=== PATIENT | female | born 1955 | race Caucasian/White ===

== ENCOUNTER 2016-05-31 09:53 | Inpatient (IN) | payer OTHER ==
[2016-05-31] VITALS (13 sets, daily range): BP systolic 144–206; BP diastolic 77–101; PULSE 94–133; RESP 20–26; TEMP 98.1–98.6; O2SAT 95–100
[~2016-05-31] VITALS: Ht 165.1 cm; Wt 71.1 kg
[~2016-05-31 09:53] MED LIST: ALBU8I INH; BACT800T5 PO; METO100 PO; NYSTT; PRED20 PO
[2016-05-31] MEDS ORDERED: RESP: ALBUTEROL 2.5 MG/IPRATROPIUM 0.5 MG NEB (PRN) ONE (10:19)
[2016-05-31] MEDS: RESP: ALBUTEROL 2.5 MG/IPRATROPIUM 0.5 MG NEB (SCH) INH ×3 (10:23→20:33)
[2016-05-31] MEDS ORDERED: SODIUM CHLORIDE 0.9% FLUSH 5 ML FLUSH IVF PRN (10:30)
[2016-05-31] MEDS ORDERED: SODIUM CHLOR 0.9% 1000 ML INJ 1,000 ML IV ONE ×3 (10:30→18:00)
[2016-05-31] MEDS ORDERED: methylPREDNISolone SOD SUCC 125 MG/2 ML VIAL IVP ONE (10:30)
[2016-05-31 10:33] LABS: BLOOD GAS BASE EXCESS 0.6 mmol/L (-2-2); BLOOD GAS CARBOXYHEMOGLOBIN 1.7 % (0-4); BLOOD GAS HCO3 24 mmol/L (22-26); BLOOD GAS METHEMOGLOBIN 2.1 % (0-2); BLOOD GAS O2 HGB SATURATION 96 % (90-100); BLOOD GAS OXYGEN CONTENT 12.5 Vol % (12.0-20.0); BLOOD GAS PCO2 31 mmHg (38-42); BLOOD GAS PO2 268 mmHG (61-120); BLOOD GAS TOTAL HGB 8.8 G/DL (12.0-16.0); CRITICAL VALUE NO; DRAW SITE LT RADIAL; LITER FLOW 3 L/M; NUMBER OF ARTERIAL PUNCTURES 1; OXYGEN DEVICE NASAL CANNULA; STAT YES; TEMP CORR TO 98.6; ULNAR PULSE PRESENT
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
[2016-05-31] MEDS ORDERED: CEFEPIME INJ 2,000 MG in SODIUM CHLORIDE 0.9% INJ 100 ML IV ONE (12:00)
[2016-05-31] MEDS ORDERED: VANCOMYCIN INJ 1,000 MG in SODIUM CHLOR 0.9% 250 ML INJ 250 ML IV ONE (12:00)
--- NOTE | 2016-05-31 12:14 | RADRPT ---
EXAM DATE/TIME: 05/31/2016 11:51 [facility] COMPARISON: No previous studies available for comparison. INDICATIONS : Altered mental status. RADIATION DOSE: 41.24 CTDIvol (mGy) MEDICAL HISTORY : Hypertension. SURGICAL HISTORY : Non-responsive. ENCOUNTER: Initial ACUITY: 1 day PAIN SCALE: Non-responsive LOCATION: Bilateral cranial TECHNIQUE: Multiple contiguous axial images were obtained of the head. Using automated exposure control and adj ustment of the mA and/or kV according to patient size, radiation dose was kept as low as reasonably a chievable to obtain optimal diagnostic quality images. 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 Modera te periventricular white matter changes are noted. There is no acute parenchymal hemorrhage. There are no extra-axial fluid collections appreciated. Posterior fossa appears normal. CONCLUSION: 1. 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 2. Negative for an acute process. Vinay Avalos MD FACR on May 31, 2016 at 12:08 Board Certified Radiologist. This report was verified electronically.
[2016-05-31 12:52] LABS: AUTOMATED NEUTROPHIL # 21.8 TH/MM3 (1.8-7.7); BASOPHIL % 0.1 % (0.0-2.0); EOSINOPHIL % 0.1 % (0.0-4.0); HEMATOCRIT 33.6 % (35.0-46.0); LYMPH % 3.6 % (9.0-44.0); LYMPHOCYTE # 0.8 TH/MM3 (1.0-4.8); MEAN CELL VOLUME 78.6 FL (80.0-100.0); MEAN CORPUSCULAR HEMOGLOBIN 23.6 PG (27.0-34.0); MONO % 3.3 % (0.0-8.0); NEUT % 92.9 % (16.0-70.0); PLATELET COUNT 437 TH/MM3 (150-450); RED BLOOD COUNT 4.27 MIL/MM3 (4.00-5.30); RED CELL DISTRIBUTION WIDTH 16.6 % (11.6-17.2); WHITE BLOOD COUNT 23.4 TH/MM3 (4.0-11.0)
[2016-05-31 12:53] LABS: HEMO FLAGS AUTO DIFF
[2016-05-31 12:59] LABS: APTT (PATIENT) 43.1 SEC (22.6-28.8); INTERNATIONAL NORMALIZED RATIO 1.9 RATIO
--- NOTE | 2016-05-31 13:08 | RADRPT ---
EXAM DATE/TIME: 05/31/2016 12:55 [facility] COMPARISON: CHEST SINGLE AP, March 06, 2016, 13:56. INDICATIONS : Short of breath MEDICAL HISTORY : Hypertension. Chronic obstructive pulmonary disease. SURGICAL HISTORY : None. ENCOUNTER: Initial ACUITY: 1 day PAIN SCORE: Non-responsive. LOCATION: Bilateral chest FINDINGS: [id number] is in good position. Lungs are clear. The heart and pulmonary vascularity are normal. The portion of the bony skeleton visualized is unremarkable. CONCLUSION: No acute disease. Vinay Avalos MD FACR on May 31, 2016 at 13:06 Board Certified Radiologist. This report was verified electronically.
[2016-05-31 13:12] LABS: ANION GAP 12 MEQ/L (5-15); AST (GOT) 74 U/L (15-37); BICARBONATE 20.1 MEQ/L (21.0-32.0); BLOOD UREA NITROGEN 24 MG/DL (7-18); CHLORIDE 101 MEQ/L (98-107); GLOMERULAR FILTRATION RATE 45 ML/MIN (>89); POTASSIUM 4.6 MEQ/L (3.5-5.1); SODIUM (NA) 133 MEQ/L (136-145)
[2016-05-31 13:17] LABS: ALKALINE PHOSPHATASE 82 U/L (45-117); ALT (GPT) 28 U/L (10-53); CREATINE KINASE 772 U/L (26-192); TOTAL BILIRUBIN ADULT 0.5 MG/DL (0.2-1.0)
[2016-05-31 13:24] LABS: BANDS 14 % (0-6); MYELOCYTES 1 % (0-0); NEUTROPHIL # MANUAL DIFF 21.5 TH/MM3 (1.8-7.7); PLATELET ESTIMATE SMEAR NORMAL (NORMAL); PLATELET MORPHOLOGY NORMAL (NORMAL); POLYS (SEG NEUTROPHILS) 77 % (16-70); SCAN/DIFF FINAL DIFF MANUAL; WBC DIFF SAMPLE 100
[2016-05-31] MEDS ORDERED: ADENOSINE IV SOLN 3 MG/ML 2 ML VIAL ONE ×4 (14:44→15:40)
[2016-05-31 14:45] LABS: LACTIC ACID GHOST NOT REPORTABLE
[2016-05-31] MEDS ORDERED: RESP: ALBUTEROL 2.5 MG/3 ML NEB (SCH) NEB ONE (15:00)
[2016-05-31] MEDS ORDERED: SODIUM CHLOR 0.9% 1000 ML INJ 1,000 ML IV SCH ×2 (15:15→16:30)
[2016-05-31] MEDS ORDERED: LACTATED RINGER'S 1000 ML INJ 1,000 ML IV SCH (15:20)
[2016-05-31 15:28] LABS: BLOOD, URINE NEG (NEG); COMMENT (UR) CULT NOT INDICATED; CULTURE IF INDICATED CULT NOT INDICATED; GLUCOSE,URINE NEG (NEG); KETONE, URINE NEG (NEG); MUCUS URINE FEW /lpf (OCC); NITRITE,URINE NEG (NEG); PH, URINE 5.5 (5.0-8.5); SQUAMOUS EPITHELIAL CELL URINE <1 /hpf (0-5); URINE COLOR YELLOW (YELLW/STRAW)
[2016-05-31] MEDS ORDERED: POTASSIUM CHLOR 40 MEQ PREMIX 100 ML IV PRN ×2 (15:30)
[2016-05-31] MEDS ORDERED: POTASSIUM PHOSPHATE MONOBASIC 500 MG TAB PO PRN (15:30)
[2016-05-31] MEDS ORDERED: MAGNESIUM OXIDE 400 MG TAB PO PRN (15:30)
[2016-05-31] MEDS ORDERED: CHLORHEXIDINE GLUCONATE 2 % 1 PACK (2 CLOTHS) TOP PRN (15:30)
[2016-05-31] MEDS ORDERED: DEXTROSE 50% IN WATER 50 ML VIAL(D50) IV PUSH PRN ×2 (15:30→19:45)
[2016-05-31] MEDS ORDERED: MAGNESIUM SULFATE INJ 2 GM in SODIUM CHLORIDE 0.9% INJ 96 ML IV PRN (15:30)
[2016-05-31] MEDS ORDERED: MAGNESIUM SULFATE INJ 4 GM in SODIUM CHLORIDE 0.9% INJ 92 ML IV PRN (15:30)
[2016-05-31] MEDS ORDERED: POTASSIUM CL 40 MEQ/30 ML LIQ UDC PO/TUBE PRN ×2 (15:30)
[2016-05-31] MEDS ORDERED: SODIUM PHOSPHATE INJ 30 MMOL in SODIUM CHLOR 0.9% 250 ML INJ 240 ML IV PRN (15:30)
[2016-05-31] MEDS ORDERED: POTASSIUM CHLOR 20 MEQ PREMIX 100 ML IV PRN (15:30)
[2016-05-31] MEDS ORDERED: MISCELLANEOUS NURSING INFORMATION XX SCH (15:30)
[2016-05-31] MEDS ORDERED: POTASSIUM PHOSPHATE INJ 30 MMOL in SODIUM CHLOR 0.9% 250 ML INJ 250 ML IV PRN (15:30)
[2016-05-31] MEDS ORDERED: POTASSIUM PHOSPHATE MONOBASIC 500 MG TAB PO/TUBE PRN (15:30)
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
[2016-05-31] MEDS ORDERED: INSULIN NovoLIN REGULAR SUPPLEMENTAL SCALE SQ SCH (18:00)
[2016-05-31] MEDS ORDERED: Vancomycin Consult Pharmacy 1 EA OTHER SCH (19:30)
[2016-05-31] MEDS ORDERED: GLUCAGON 1 MG/ML VIAL OTHER PRN (19:45)
[2016-05-31] MEDS: SODIUM CHLOR 0.9% 1000 ML INJ 1,000 ML IV SCH (20:00)
[2016-05-31] MEDS: INSULIN ASPART SUPPLEMENTAL SCALE SQ SCH (20:00)
[2016-05-31] MEDS: SODIUM CHLORIDE 0.9% FLUSH 5 ML FLUSH IV FLUSH SCH (20:14)
[2016-05-31] MEDS: DOCUSATE SODIUM 50 MG/SENNA 8.6 MG TAB PO SCH (20:14)
[2016-05-31] MEDS ORDERED: TETANUS/DIPHTHERIA TOXOID ADULT 0.5 ML VIAL IM ONE (20:30)
[2016-05-31] MEDS ORDERED: VANCOMYCIN 1,000 MG/NS 250 ML IV ONE ×2 (21:00)
[2016-05-31] MEDS ORDERED: LACTULOSE SYRUP 20 GM/30 ML CUP PO SCH (21:00)
[2016-05-31] MEDS ORDERED: POLYETHYLENE GLYCOL 17 GM PKG PO SCH (21:00)
[2016-05-31] MEDS: HEPARIN SODIUM - SQ 10,000 UNITS/ML VIAL SQ SCH (21:20)
[2016-05-31] MEDS: FLUCONAZOLE 100 MG PREMIX BAG 50 ML IV SCH (21:25)
[2016-05-31 21:36] LABS: MAGNESIUM 2.6 MG/DL (1.5-2.5)
[2016-05-31 22:33] LABS: LACTIC ACID GHOST NOT REPORTABLE
[2016-06-01] VITALS (18 sets, daily range): BP systolic 131–166; BP diastolic 74–91; PULSE 95–119; RESP 16–20; TEMP 97.4–98.4; O2SAT 99–100
[2016-06-01] MEDS: SODIUM CHLOR 0.9% 1000 ML INJ 1,000 ML IV SCH ×2 (00:40→08:03)
[2016-06-01] MEDS: INSULIN ASPART SUPPLEMENTAL SCALE SQ SCH ×4 (02:00→20:00)
[2016-06-01] MEDS: RESP: ALBUTEROL 2.5 MG/IPRATROPIUM 0.5 MG NEB (SCH) INH ×4 (03:41→21:43)
--- NOTE | 2016-06-01 03:50 | RADRPT ---
EXAM DATE/TIME: 06/01/2016 02:44 [facility] COMPARISON: US LEG BILATERAL VENOUS DOPPLER, December 24, 2015, 20:58. INDICATIONS : Swelling in bilateral lower extremites. MEDICAL HISTORY : Stroke. Hypercholesterolemia. Hypertension. COPD. Emphysema. Asthma. GERD. Rheumatoid arthritis. Lupu s. Hepatitis C. SURGICAL HISTORY : section. Cerebral aneurysm repair x 2. Oral surgery. ENCOUNTER: Initial ACUITY: 1 day PAIN SCORE: Non-responsive LOCATION: Bilateral legs. TECHNIQUE: Venous ultrasound of the left and right leg was performed from the inguinal ligament to the proximal calf. Real-time, color Doppler and spectral tracing, compression and augmentation techniques were us ed. FINDINGS: RIGHT LEG: There is normal compressibility of the deep venous system from the inguinal region to the proximal ca lf. No echogenic clot is seen in the lumen of the common femoral, femoral, popliteal, and posterior tibial veins. There is a normal response of the venous system to proximal and distal augmentation an d respiration. LEFT LEG: There is normal compressibility of the deep venous system from the inguinal region to the proximal ca lf. No echogenic clot is seen in the lumen of the common femoral, femoral, popliteal, and posterior tibial veins. There is a normal response of the venous system to proximal and distal augmentation an d respiration. CONCLUSION: No evidence of lower extremity DVT on the right or left. Rony Espinoza MD on June 01, 2016 at 3:47 Board Certified Radiologist. This report was verified electronically.
[2016-06-01] MEDS: CHLORHEXIDINE GLUCONATE 2 % 1 PACK (2 CLOTHS) TOP SCH (04:00)
[2016-06-01] MEDS: PIPERACIL-TAZO 3.375 GM PREMIX 50 ML IV SCH ×4 (05:18→20:32)
[2016-06-01] MEDS: HEPARIN SODIUM - SQ 10,000 UNITS/ML VIAL SQ SCH ×2 (05:19→18:34)
[2016-06-01 06:01] LABS: HEMATOCRIT 23.1 % (35.0-46.0); MEAN CELL VOLUME 77.4 FL (80.0-100.0); MEAN CORPUSCULAR HEMOGLOBIN 23.9 PG (27.0-34.0); MEAN CORPUSCULAR HGB CONC 30.9 % (32.0-36.0); PLATELET COUNT 285 TH/MM3 (150-450); RED BLOOD COUNT 2.99 MIL/MM3 (4.00-5.30); RED CELL DISTRIBUTION WIDTH 16.1 % (11.6-17.2); WHITE BLOOD COUNT 14.5 TH/MM3 (4.0-11.0)
--- NOTE | 2016-06-01 06:12 | RADRPT ---
EXAM DATE/TIME: 06/01/2016 05:33 [facility] COMPARISON: CHEST SINGLE AP, May 31, 2016, 12:55. INDICATIONS : Atelectasis MEDICAL HISTORY : Chronic obstructive pulmonary disease. Hypertension SURGICAL HISTORY : None. ENCOUNTER: Subsequent ACUITY: 2 days PAIN SCORE: 0/10 LOCATION: Bilateral chest FINDINGS: No Single AP view of the chest. Left-sided [id number] remains in place. Minimal patchy opacity at the lung bases. No evidence of pleural effusion or pneumothorax. CONCLUSION: Minimal patchy bilateral lower lung zone atelectasis. Rony Espinoza MD on June 01, 2016 at 6:09 Board Certified Radiologist. This report was verified electronically.
[2016-06-01 06:17] LABS: REVIEW FLAG FINAL
[2016-06-01 07:14] LABS: BICARBONATE 20.1 MEQ/L (21.0-32.0); POTASSIUM 4.2 MEQ/L (3.5-5.1)
[2016-06-01 07:31] LABS: CKMB 2.5 NG/ML (0.5-3.6)
[2016-06-01 07:50] LABS: CALCIUM-PROTEIN CORRECTED 7.6 MG/DL (8.5-10.1)
[2016-06-01 07:52] LABS: LACTIC ACID GHOST NOT REPORTABLE
[2016-06-01] MEDS: DOCUSATE SODIUM 50 MG/SENNA 8.6 MG TAB PO SCH ×2 (08:04→20:32)
[2016-06-01] MEDS: SODIUM CHLORIDE 0.9% FLUSH 5 ML FLUSH IV FLUSH SCH ×2 (08:21→20:32)
[2016-06-01] MEDS: PANTOPRAZOLE SODIUM 40 MG VIAL IV SCH (08:21)
[2016-06-01] MEDS ORDERED: BISACODYL 10 MG SUPP RECTAL SCH (09:00)
[2016-06-01] MEDS ORDERED: SODIUM CHLOR 0.9% 250 ML INJ 250 ML IV ONE (11:00)
[2016-06-01] MEDS: LACTATED RINGER'S 1000 ML INJ 1,000 ML IV SCH ×2 (11:10→18:35)
[2016-06-01 12:59] LABS: BLOOD GAS BASE EXCESS -4.8 mmol/L (-2-2); BLOOD GAS CARBOXYHEMOGLOBIN 1.3 % (0-4); BLOOD GAS HCO3 20 mmol/L (22-26); BLOOD GAS METHEMOGLOBIN 0.9 % (0-2); BLOOD GAS O2 HGB SATURATION 97 % (90-100); BLOOD GAS OXYGEN CONTENT 9.1 Vol % (12.0-20.0); BLOOD GAS PCO2 36 mmHg (38-42); BLOOD GAS PO2 127 mmHg (61-120); BLOOD GAS TOTAL HGB 6.5 G/DL (12.0-16.0); CRITICAL VALUE YES; DRAW SITE RT RADIAL; LITER FLOW 3 L/M; NUMBER OF ARTERIAL PUNCTURES 1; OXYGEN DEVICE NASAL CANNULA; STAT YES; TEMP CORR TO 98.6
--- NOTE | 2016-06-01 13:44 | EKG ---
Date Performed: 05/31/2016 Time Performed: 10:30:56 PTAGE: 60 years EKG: SINUS TACHYCARDIA NONSPECIFIC ST & T-WAVE ABNORMALITY ST-T wave changes are new since prior tracing, otherwise largely unchanged ABNORMAL RHYTHM ECG PREVIOUS TRACING : 03/06/2016 14.14 DOCTOR: Jourdan Denson Interpretating Date/Time 06/01/2016 13:43:18
--- NOTE | 2016-06-01 13:46 | EKG ---
Date Performed: 05/31/2016 Time Performed: 15:24:25 PTAGE: 60 years EKG: SUPRAVENTRICULAR TACHYCARDIA MODERATE T-WAVE ABNORMALITY, CONSIDER LATERAL ISCHEMIA Baselin e artifact precludes accurate assessment, rate has increased, however appears largely unchanged ABNOR MAL ECG PREVIOUS TRACING : 05/31/2016 10.30 DOCTOR: Jourdan Denson Interpretating Date/Time 06/01/2016 13:44:08
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
[2016-06-01] MEDS: VANCOMYCIN INJ 1,250 MG in SODIUM CHLOR 0.9% 250 ML INJ 250 ML IV SCH (18:34)
[2016-06-01] MEDS: SODIUM CHLORIDE 0.9% FLUSH 5 ML FLUSH IV FLUSH PRN (20:32)
[2016-06-01] MEDS: FLUCONAZOLE 100 MG PREMIX BAG 50 ML IV SCH (20:36)
[2016-06-02] VITALS (14 sets, daily range): BP systolic 143–163; BP diastolic 89–104; PULSE 109–128; RESP 18–27; TEMP 97.8–98.6; O2SAT 93–99
[2016-06-02] MEDS: LACTATED RINGER'S 1000 ML INJ 1,000 ML IV SCH ×2 (00:20→05:42)
[2016-06-02] MEDS: PIPERACIL-TAZO 3.375 GM PREMIX 50 ML IV SCH ×4 (01:51→22:05)
[2016-06-02] MEDS: INSULIN ASPART SUPPLEMENTAL SCALE SQ SCH ×4 (01:51→20:00)
[2016-06-02] MEDS: RESP: ALBUTEROL 2.5 MG/IPRATROPIUM 0.5 MG NEB (SCH) INH ×4 (03:05→20:55)
[2016-06-02] MEDS: CHLORHEXIDINE GLUCONATE 2 % 1 PACK (2 CLOTHS) TOP SCH (04:00)
[2016-06-02] MEDS: HEPARIN SODIUM - SQ 10,000 UNITS/ML VIAL SQ SCH ×2 (05:42→17:29)
[2016-06-02 07:47] LABS: APTT (PATIENT) 29.5 SEC (22.6-28.8); HEMATOCRIT 26.8 % (35.0-46.0); INTERNATIONAL NORMALIZED RATIO 1.3 RATIO; MEAN CELL VOLUME 78.2 FL (80.0-100.0); MEAN CORPUSCULAR HEMOGLOBIN 25.1 PG (27.0-34.0); MEAN CORPUSCULAR HGB CONC 32.1 % (32.0-36.0); PLATELET COUNT 306 TH/MM3 (150-450); PROTHROMBIN TIME - PATIENT 13.9 SEC (9.8-11.4); RED BLOOD COUNT 3.42 MIL/MM3 (4.00-5.30); RED CELL DISTRIBUTION WIDTH 15.5 % (11.6-17.2); REVIEW FLAG FINAL; WHITE BLOOD COUNT 16.2 TH/MM3 (4.0-11.0)
[2016-06-02 08:00] LABS: BICARBONATE 23.5 MEQ/L (21.0-32.0); POTASSIUM 3.5 MEQ/L (3.5-5.1)
[2016-06-02] MEDS: SODIUM CHLORIDE 0.9% FLUSH 5 ML FLUSH IV FLUSH SCH ×2 (08:43→22:06)
[2016-06-02] MEDS: PANTOPRAZOLE SODIUM 40 MG VIAL IV SCH (08:43)
[2016-06-02] MEDS: VANCOMYCIN INJ 1,250 MG in SODIUM CHLOR 0.9% 250 ML INJ 250 ML IV SCH (08:44)
[2016-06-02] MEDS: DOCUSATE SODIUM 50 MG/SENNA 8.6 MG TAB PO SCH ×2 (08:44→22:06)
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
[2016-06-02] MEDS: DILTIAZEM HCL 60 MG TAB PO SCH ×4 (09:00→22:06)
--- NOTE | 2016-06-02 09:32 | PD.PLAS.PN ---
Subjective Remarks Awake. No complaints. Objective Vital Signs Date Time Temp Pulse Resp B/P Pulse Ox O2 Delivery O2 Flow Rate FiO2 06/02/16 06:00 115 06/02/16 04:00 98.5 116 22 143/90 98 06/02/16 04:00 116 06/02/16 02:00 110 06/02/16 00:00 98.6 109 18 158/89 98 06/02/16 00:00 110 06/01/16 22:00 110 06/01/16 21:43 100 Nasal Cannula 2.00 06/01/16 20:00 98.1 109 18 131/75 99 06/01/16 20:00 109 06/01/16 19:16 100 Nasal Cannula 3.00 06/01/16 18:00 119 06/01/16 16:00 98.4 119 18 137/77 100 06/01/16 16:00 119 06/01/16 14:00 109 06/01/16 12:00 97.4 104 16 133/74 100 06/01/16 12:00 104 06/01/16 10:00 108 06/01/16 09:53 100 Nasal Cannula 3.00 I/O 06/01/16 06/01/16 06/01/16 06/02/16 06/02/16 06/02/16 07:00 15:00 23:00 07:00 15:00 23:00 Intake Total 1211 ml 1023 ml 1775 ml 1012 ml Output Total 280 ml 230 ml 260 ml 330 ml Balance 931 ml 793 ml 1515 ml 682 ml Intake Oral 0 ml 0 ml 0 ml 0 ml IV Total 1211 ml 1023 ml 1369 ml 1012 ml Packed Cells 406 ml Output Urine Total 280 ml 230 ml 260 ml 330 ml # Bowel Movements 0 0 0 0 Laboratory Tests Test 06/01/16 06/01/16 06/01/16 06/02/16 10:20 12:48 13:10 06:11 Lactic Acid Level 1.5 Blood Gas Puncture Site RT RADIAL Blood Gas Patient Temperature 98.6 Blood Gas HCO3 20 Blood Gas Base Excess -4.8 Blood Gas Oxygen Saturation 97 Arterial Blood pH 7.36 Arterial Blood Partial 36 Pressure CO2 Arterial Blood Partial 127 Pressure O2 Arterial Blood Oxygen Content 9.1 Arterial Blood 1.3 Carboxyhemoglobin Arterial Blood Methemoglobin 0.9 Blood Gas Hemoglobin 6.5 Oxygen Delivery Device NASAL CANNULA Blood Gas Liter Flow 3 Blood Type A POSITIVE Antibody Screen NEGATIVE Crossmatch Leukocyte-Reduced Red Blood Cells Blood Bank Comment White Blood Count 16.2 Red Blood Count 3.42 Hemoglobin 8.6 Hematocrit 26.8 Mean Corpuscular Volume 78.2 Mean Corpuscular Hemoglobin 25.1 Mean Corpuscular Hemoglobin 32.1 Concent Red Cell Distribution Width 15.5 Platelet Count 306 Mean Platelet Volume 7.7 Prothrombin Time 13.9 Prothromb Time International 1.3 Ratio Activated Partial 29.5 Thromboplast Time Sodium Level 146 Potassium Level 3.5 Chloride Level 115 Carbon Dioxide Level 23.5 Anion Gap 8 Blood Urea Nitrogen 18 Creatinine 0.82 Estimat Glomerular Filtration 72 Rate Random Glucose 82 Calcium Level 8.1 Date/Time Procedure Status Source Growth 05/31/16 12:05 Aerobic Blood Culture - Preliminary Resulted Blood Peripheral NO GROWTH IN 1 DAY 05/31/16 12:05 Anaerobic Blood Culture - Preliminary Resulted Blood Peripheral NO GROWTH IN 1 DAY Result Diagram: 06/02/1661006/02/16 06 Exam Findings Seen with nurse. Posterior trunk: Un-stageable sacral ulcer. Dry, no drainage, no sign of infection. Moist, no stool. Posterior thigh: Bilateral upper thigh area of superficial abrasion and erythema, no drainage. Rash, macular. Assessment and Plan Assessment and Plan Multiple medical problems, admitted for Sepsis. Posterior trunk early stage ulcer, and surround moisture. Posterior bilateral thighs with erythema, superficial abrasions. Recommend: No surgery or debridement at this time Low flow mattress, which is absolutely essential in these patients. Wound care nurse for recommendations of dressings, need moisture control and bacteriostatic, Maxorb. Rotation every 3 hours Check nutritional parameters If no mental improvement, consider colostomy. Steven Silva MD Jun 02, 2016 09:32
[2016-06-02] MEDS: FLUCONAZOLE 100 MG PREMIX BAG 50 ML IV SCH (22:10)
[2016-06-03] VITALS (16 sets, daily range): BP systolic 126–175; BP diastolic 67–104; PULSE 72–119; RESP 18–27; TEMP 97.7–98.3; O2SAT 94–99
[2016-06-03] MEDS: INSULIN ASPART SUPPLEMENTAL SCALE SQ SCH ×4 (02:00→19:50)
[2016-06-03] MEDS ORDERED: LABETALOL HCL 100 MG/20 ML VIAL IV PRN (02:15)
[2016-06-03] MEDS: VANCOMYCIN INJ 1,250 MG in SODIUM CHLOR 0.9% 250 ML INJ 250 ML IV SCH ×3 (02:31→22:00)
[2016-06-03] MEDS: PIPERACIL-TAZO 3.375 GM PREMIX 50 ML IV SCH ×4 (02:38→19:51)
[2016-06-03] MEDS: CHLORHEXIDINE GLUCONATE 2 % 1 PACK (2 CLOTHS) TOP SCH (03:39)
[2016-06-03] MEDS: RESP: ALBUTEROL 2.5 MG/IPRATROPIUM 0.5 MG NEB (SCH) INH ×4 (03:57→22:03)
[2016-06-03] MEDS: HEPARIN SODIUM - SQ 10,000 UNITS/ML VIAL SQ SCH ×2 (07:46→17:54)
[2016-06-03] MEDS: DILTIAZEM HCL 60 MG TAB PO SCH ×4 (08:00→19:53)
[2016-06-03] MEDS: SODIUM CHLORIDE 0.9% FLUSH 5 ML FLUSH IV FLUSH SCH ×2 (08:00→19:53)
[2016-06-03] MEDS: DOCUSATE SODIUM 50 MG/SENNA 8.6 MG TAB PO SCH ×2 (08:00→19:53)
[2016-06-03] MEDS: PANTOPRAZOLE SODIUM 40 MG VIAL IV SCH (08:00)
--- NOTE | 2016-06-03 10:39 | HHI.PR ---
Subjective Remarks Follow-up for sepsis Patient seen by plastic surgery, nonsurgical for now. Afebrile. Mental status is better today per RN. Patient is more verbal, less slurring of speech. aFebrile. Objective Vitals Vital Signs Date Time Temp Pulse Resp B/P Pulse Ox O2 Delivery O2 Flow Rate FiO2 06/03/16 10:00 80 06/03/16 08:46 94 Nasal Cannula 2.00 06/03/16 08:00 76 06/03/16 08:00 97.7 76 20 130/84 95 06/03/16 06:00 97 06/03/16 04:01 98.3 98 26 175/95 98 06/03/16 04:00 98 06/03/16 02:00 116 06/03/16 00:00 119 06/03/16 00:00 98.0 119 27 169/104 98 06/02/16 22:00 116 06/02/16 20:56 99 Nasal Cannula 2.00 06/02/16 20:00 115 06/02/16 20:00 98.2 115 27 161/97 95 06/02/16 18:00 116 06/02/16 16:00 115 06/02/16 16:00 97.8 115 20 151/91 95 06/02/16 14:00 128 06/02/16 12:00 98.0 121 20 163/104 93 06/02/16 12:00 121 I/O 06/02/16 06/02/16 06/02/16 06/03/16 06/03/16 06/03/16 07:00 15:00 23:00 07:00 15:00 23:00 Intake Total 1012 ml 738 ml 270 ml 170 ml Output Total 330 ml 350 ml 150 ml 150 ml Balance 682 ml 388 ml 120 ml 20 ml Intake Oral 0 ml 50 ml IV Total 1012 ml 738 ml 270 ml 120 ml Output Urine Total 330 ml 350 ml 150 ml 150 ml # Bowel Movements 0 0 0 0 Result Diagram: 06/02/16 0611 06/02/16 0611 Objective Remarks Not in distress PERRL, pink conjunctiva Nose without bleeding Supple neck Normal rate and regular rhythm, no murmurs gallops or rubs appreciated. Poor effort, otherwise clear. Normal bowel sounds, soft, non-tender, nondistended, no guarding. Extremities without clubbing, cyanosis, trace edema improving. Positive for decubitus ulcer, about 2 cm overlying the lower one third of the left lower leg with exudates overlying the ulcer, with diffuse erythema posterior thigh, with surrounding erythema, tender. There is also a necrotic area more than 10 cm posteriorly thigh,? Fluctuance. Awake,? Orientation, most extremities. A/P Problem List: (1) COPD (chronic obstructive pulmonary disease) ICD Code: J44.9 Status: Acute (2) SOB (shortness of breath) ICD Code: R06.02 Status: Acute (3) Severe sepsis ICD Code: A41.9 Status: Acute (4) Hx-TIA (transient ischemic attack) ICD Code: Z86.73 Status: Acute (5) Edentulous ICD Code: K00.0 Status: Acute (6) Essential hypertension ICD Code: I10 Status: Acute (7) Tobacco use disorder ICD Code: Z72.0 Status: Acute (8) Hyperlipidemia ICD Code: E78.5 Status: Acute Assessment and Plan This is a 60-year-old female with cerebral aneurysm and baseline hemiparesis and aphasia presenting with altered mental status Acute toxic metabolic encephalopathy-resolving. Mental status better today. Patient had cerebral aneurysm clipping in 2007, as Baseline hemiparesis and aphasia. CT scan of the head was unremarkable, ammonia is normal. Continue to monitor neuro status and avoid sedatives. Acute respiratory failure-history of tracheostomy, history of COPD. Ongoing tobacco abuse. Was on BiPAP, presently on nasal cannula. Continue oxygen supplementation and DuoNeb's. Sinus tachycardia, hypertension-receive adenosine in at the emergency department , BNP normal, troponin negative. Lactic acidosis resolved with volume resuscitation. 2 D Echo 12/25/15 with EF 55-60%. Normal wall motion. Mild LVH, continue Cardizem 60milligrams 4 times a day Sepsis-on IVF, lactic acidosis resolved. Status post 3 L normal saline History dysphagia-prior history of PEG and removal. Priors history of hepatitis , patient seems to have chronic hepatitis C, follow-up as outpatient. May require diverting colostomy for fecal management due to skin wounds. . Acute renal injury-improving, recheck BMP tomorrow Anemia-status post blood transfusion. Monitor CBC. Sepsis secondary to cellulitis of the left lower extremity, with necrotic decubitus ulcer left buttocks with Shannon intertrigo-? History of HIV, Unable to obtain consent for HIV at this time. CD4 pending. Continue vancomycin, Zosyn and Diflucan. Blood cultures negative to date. General surgery evaluated. No plan for emergent surgery but appears decubitus will require debridement. Dr Echeverria deferring management to plastic surgery. Plastic surgery evaluated, recommends no surgery for now. May require diverting colostomy for wound management due to h/o fecal incontinence, General surgery will follow peripherally regarding this issue. Hypokalemia-replaced PROPH: Heparin subcutaneous for DVT prophylaxis. Protonix 40 mg IV daily for stress ulcer prophylaxis. SOCIAL: Apparent Neglect of at-risk adult. DCF report submitted per ED report. Social work consult to follow. Discussed with Carlitos Haney MD Jun 03, 2016 10:39
[2016-06-03 11:08] LABS: ALT (GPT) 33 U/L (10-53); ANION GAP 8 MEQ/L (5-15); AST (GOT) 49 U/L (15-37); BICARBONATE 24.1 MEQ/L (21.0-32.0); BLOOD UREA NITROGEN 15 MG/DL (7-18); CHLORIDE 113 MEQ/L (98-107); GLOMERULAR FILTRATION RATE 90 ML/MIN (>89); MAGNESIUM 2.3 MG/DL (1.5-2.5); POTASSIUM 3.4 MEQ/L (3.5-5.1); SODIUM (NA) 145 MEQ/L (136-145)
[2016-06-03 11:11] LABS: ALKALINE PHOSPHATASE 64 U/L (45-117); TOTAL BILIRUBIN ADULT 0.8 MG/DL (0.2-1.0)
[2016-06-03] MEDS: POTASSIUM CHLOR 20 MEQ PREMIX 100 ML IV PRN ×3 (11:38→15:04)
[2016-06-03 13:12] LABS: AUTOMATED NEUTROPHIL # 14.4 TH/MM3 (1.8-7.7); BASOPHIL # 0.1 TH/MM3 (0-0.2); BASOPHIL % 0.5 % (0.0-2.0); EOSINOPHIL % 0.1 % (0.0-4.0); HEMATOCRIT 26.6 % (35.0-46.0); LYMPH % 3.3 % (9.0-44.0); LYMPHOCYTE # 0.5 TH/MM3 (1.0-4.8); MEAN CELL VOLUME 77.5 FL (80.0-100.0); MEAN CORPUSCULAR HEMOGLOBIN 24.9 PG (27.0-34.0); MEAN CORPUSCULAR HGB CONC 32.2 % (32.0-36.0); MONO % 2.8 % (0.0-8.0); NEUT % 93.3 % (16.0-70.0); PLATELET COUNT 288 TH/MM3 (150-450); RED BLOOD COUNT 3.43 MIL/MM3 (4.00-5.30); RED CELL DISTRIBUTION WIDTH 16.7 % (11.6-17.2); WHITE BLOOD COUNT 15.4 TH/MM3 (4.0-11.0)
[2016-06-03 13:18] LABS: HEMO FLAGS AUTO DIFF
[2016-06-03 13:56] LABS: BANDS 3 % (0-6); MYELOCYTES 3 % (0-0); NEUTROPHIL # MANUAL DIFF 13.7 TH/MM3 (1.8-7.7); OVALOCYTES 1+ (NORMAL); POLYS (SEG NEUTROPHILS) 83 % (16-70); WBC DIFF SAMPLE 100
[2016-06-03 13:57] LABS: PLATELET ESTIMATE SMEAR NORMAL (NORMAL); PLATELET MORPHOLOGY NORMAL (NORMAL); SCAN/DIFF FINAL DIFF MANUAL
[2016-06-03] MEDS: FLUCONAZOLE 100 MG PREMIX BAG 50 ML IV SCH (20:11)
[2016-06-03] MEDS ORDERED: PHARMACY ORDERED LAB XX ONE (21:45)
[2016-06-03 23:54] LABS: CD4/CD8 RATIO 3.2 (0.86-5.00)
[2016-06-04] VITALS (13 sets, daily range): BP systolic 142–158; BP diastolic 68–94; PULSE 83–96; RESP 18–23; TEMP 97.9–98.2; O2SAT 92–97
[2016-06-04] MEDS: INSULIN ASPART SUPPLEMENTAL SCALE SQ SCH ×4 (02:00→20:00)
[2016-06-04] MEDS: CHLORHEXIDINE GLUCONATE 2 % 1 PACK (2 CLOTHS) TOP SCH (04:00)
[2016-06-04] MEDS: RESP: ALBUTEROL 2.5 MG/IPRATROPIUM 0.5 MG NEB (SCH) INH ×3 (04:16→15:28)
[2016-06-04] MEDS: PIPERACIL-TAZO 3.375 GM PREMIX 50 ML IV SCH ×4 (04:22→20:12)
[2016-06-04] MEDS: HEPARIN SODIUM - SQ 10,000 UNITS/ML VIAL SQ SCH ×2 (04:22→17:39)
[2016-06-04 05:36] LABS: HEMATOCRIT 28.6 % (35.0-46.0); MEAN CORPUSCULAR HEMOGLOBIN 24.5 PG (27.0-34.0); MEAN CORPUSCULAR HGB CONC 31.9 % (32.0-36.0); PLATELET COUNT 289 TH/MM3 (150-450); RED BLOOD COUNT 3.72 MIL/MM3 (4.00-5.30); RED CELL DISTRIBUTION WIDTH 16.6 % (11.6-17.2); WHITE BLOOD COUNT 14.9 TH/MM3 (4.0-11.0)
[2016-06-04 05:38] LABS: REVIEW FLAG FINAL
[2016-06-04 06:01] LABS: BICARBONATE 24.9 MEQ/L (21.0-32.0); POTASSIUM 3.6 MEQ/L (3.5-5.1); VANCOMYCIN TROUGH 11.5 MCG/ML (5.0-10.0)
[2016-06-04] MEDS: DOCUSATE SODIUM 50 MG/SENNA 8.6 MG TAB PO SCH ×2 (07:54→20:12)
[2016-06-04] MEDS: DILTIAZEM HCL 60 MG TAB PO SCH ×4 (07:54→20:12)
[2016-06-04] MEDS: PANTOPRAZOLE SODIUM 40 MG VIAL IV SCH (07:55)
[2016-06-04] MEDS: SODIUM CHLORIDE 0.9% FLUSH 5 ML FLUSH IV FLUSH SCH ×2 (07:55→20:12)
[2016-06-04] MEDS: VANCOMYCIN INJ 1,250 MG in SODIUM CHLOR 0.9% 250 ML INJ 250 ML IV SCH (09:04)
--- NOTE | 2016-06-04 12:41 | HHI.PR ---
Subjective Remarks Pt. seen today for follow up. Pt. minimal verbalization but responds to questions. Awake/ Alert and confuse. Denies any pain, discomfort, chest pain, palpitations. Denies SOB/ Dyspnea, n/v/d. No issues overnight. Objective Vitals Vital Signs Date Time Temp Pulse Resp B/P Pulse Ox O2 Delivery O2 Flow Rate FiO2 06/04/16 10:00 93 06/04/16 08:10 95 21 06/04/16 08:00 85 06/04/16 08:00 98.2 85 18 158/86 95 06/04/16 06:00 83 06/04/16 04:00 98.1 85 23 152/94 97 06/04/16 04:00 85 06/04/16 02:00 87 06/04/16 00:00 97.9 83 21 142/82 94 06/04/16 00:00 83 06/03/16 22:05 95 21 06/03/16 22:00 82 06/03/16 20:00 83 06/03/16 19:47 97.8 86 22 164/83 95 06/03/16 18:00 87 06/03/16 16:00 81 06/03/16 16:00 98.2 82 20 129/67 96 06/03/16 14:00 75 I/O 06/03/16 06/03/16 06/03/16 06/04/16 06/04/16 06/04/16 06:59 14:59 22:59 06:59 14:59 22:59 Intake Total 170 ml 452 ml 586 ml Output Total 150 ml 350 ml 750 ml Balance 20 ml 102 ml -164 ml Intake Oral 50 ml 120 ml 60 ml IV Total 120 ml 332 ml 526 ml Output Urine Total 150 ml 350 ml 750 ml Bladder Scan Volume Amount 281 ml # Bowel Movements 0 1 Result Diagram: 06/04/16 0452 06/04/16 0514 Imaging Last Impressions Chest X-Ray 06/01/16 0600 Signed Impressions: Service Date/Time: Wednesday, June 01, 2016 05:33 - CONCLUSION: Minimal patchy bilateral lower lung zone atelectasis. Rony Espinoza MD Lower Extremity Ultrasound 06/01/16 0000 Signed Impressions: Service Date/Time: Wednesday, June 01, 2016 02:44 - CONCLUSION: No evidence of lower extremity DVT on the right or left. Rony Espinoza MD Head CT 05/31/16 0000 Signed Impressions: Service Date/Time: Tuesday, May 31, 2016 11:51 - CONCLUSION: 1. 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 2. Negative for an acute process. Vinay vAalos MD FACR Objective Remarks Not in distress PERRL, pink conjunctiva Nose without bleeding Supple neck Normal rate and regular rhythm, no murmurs gallops or rubs appreciated. Poor effort, otherwise clear. Normal bowel sounds, soft, non-tender, nondistended, no guarding. Extremities without clubbing, cyanosis, trace edema improving. Positive for decubitus ulcer, about 2 cm overlying the lower one third of the left lower leg with exudates overlying the ulcer, with diffuse erythema posterior thigh, with surrounding erythema, tender. There is also a necrotic area more than 10 cm posteriorly thigh,? Fluctuance. Awake, Confuse, Orientation to self and place, moves most extremities weakly. Urinary Catheter: Yes [facility] insert reason: Stage III/IV Press Ulcer Vascular Central Line Catheter: No A/P Problem List: (1) COPD (chronic obstructive pulmonary disease) ICD Code: J44.9 Status: Acute (2) SOB (shortness of breath) ICD Code: R06.02 Status: Acute (3) Severe sepsis ICD Code: A41.9 Status: Acute (4) Hx-TIA (transient ischemic attack) ICD Code: Z86.73 Status: Acute (5) Edentulous ICD Code: K00.0 Status: Acute (6) Essential hypertension ICD Code: I10 Status: Acute (7) Tobacco use disorder ICD Code: Z72.0 Status: Acute (8) Hyperlipidemia ICD Code: E78.5 Status: Acute Assessment and Plan This is a 60-year-old female with cerebral aneurysm and baseline hemiparesis and aphasia presenting with altered mental status Acute toxic metabolic encephalopathy-resolving. Mental status better today. Patient had cerebral aneurysm clipping in 2007, as Baseline hemiparesis and aphasia. CT scan of the head was unremarkable, ammonia is normal. Continue to monitor neuro status and avoid sedatives. 06/04/16 - minimal verbalization, confuse but responsive to commands and questions, improved Acute respiratory failure- history of tracheostomy, history of COPD. Ongoing tobacco abuse. Was on BiPAP, presently on nasal cannula. Continue oxygen supplementation and DuoNeb's. 06/04/16 - on RA O2 sat 94%, increase RR with activity otherwise no SOB/ dyspnea Sinus tachycardia, hypertension-receive adenosine in at the emergency department , BNP normal, troponin negative. Lactic acidosis resolved with volume resuscitation. 2 D Echo 12/25/15 with EF 55-60%. Normal wall motion. Mild LVH, continue Cardizem 60milligrams 4 times a day 06/04/16 - HR 80's-90's, BP elevated, will start diuretics for now x 3-5 days, Monitor labs. Sepsis-on IVF, lactic acidosis resolved. Status post 3 L normal saline. 06/04/16 - afebrile overnight History dysphagia - prior history of PEG and removal. Priors history of hepatitis, patient seems to have chronic hepatitis C, follow-up as outpatient. May require diverting colostomy for fecal management due to skin wounds. 06/04/16 - will consult speech for dysphagia - if unable to tolerate PO and not meeting caloric needs may need PEG placement Acute renal injury-improving, recheck BMP tomorrow 06/04/16 - BUN/ DIGITAL ACCOUNT SUPERVISOR improved , 13/0.56 Anemia-status post blood transfusion. Monitor CBC. 06/04/16 - improved H/H Sepsis secondary to cellulitis of the left lower extremity, with necrotic decubitus ulcer left buttocks with Shannon intertrigo-? History of HIV, Unable to obtain consent for HIV at this time. CD4 pending. Continue vancomycin, Zosyn and Diflucan. Blood cultures negative to date. General surgery evaluated. No plan for emergent surgery but appears decubitus will require debridement. Dr Echeverria deferring management to plastic surgery. Plastic surgery evaluated, recommends no surgery for now. May require diverting colostomy for wound management due to h/o fecal incontinence, General surgery will follow peripherally regarding this issue. Hypokalemia-replaced PROPH: Heparin subcutaneous for DVT prophylaxis. Protonix 40 mg IV daily for stress ulcer prophylaxis. SOCIAL: Apparent Neglect of at-risk adult. DCF report submitted per ED report. Social work consult to follow. Plan to transfer to regular floor, wound care management to continue. Discussed with Carlitos Haney MD Jun 04, 2016 12:41 pm
[2016-06-04] MEDS: POTASSIUM CHLORIDE 20 MEQ CONTROLLED RELEASE TAB PO SCH (14:00)
[2016-06-04] MEDS ORDERED: FUROSEMIDE 20 MG/2 ML VIAL IV PUSH ONE (14:00)
[2016-06-04] MEDS: FLUCONAZOLE 100 MG PREMIX BAG 50 ML IV SCH (20:12)
[2016-06-04] MEDS: SODIUM CHLORIDE 0.9% FLUSH 5 ML FLUSH IV FLUSH PRN (20:12)
[2016-06-04] MEDS: RESP: ALBUTEROL 2.5 MG/IPRATROPIUM 0.5 MG NEB (PRN) INH (20:29)
[2016-06-05] VITALS (9 sets, daily range): BP systolic 111–152; BP diastolic 70–93; PULSE 70–90; RESP 18–26; TEMP 97.4–98; O2SAT 91–96
[2016-06-05] MEDS: INSULIN ASPART SUPPLEMENTAL SCALE SQ SCH ×4 (02:00→20:00)
[2016-06-05] MEDS: PIPERACIL-TAZO 3.375 GM PREMIX 50 ML IV SCH ×4 (02:16→20:57)
[2016-06-05] MEDS: CHLORHEXIDINE GLUCONATE 2 % 1 PACK (2 CLOTHS) TOP SCH (02:58)
[2016-06-05] MEDS: HEPARIN SODIUM - SQ 10,000 UNITS/ML VIAL SQ SCH ×2 (04:10→17:09)
[2016-06-05] MEDS ORDERED: PHARMACY ORDERED LAB XX ONE (06:00)
[2016-06-05 07:50] LABS: HEMATOCRIT 24.8 % (35.0-46.0); MEAN CELL VOLUME 77.5 FL (80.0-100.0); MEAN CORPUSCULAR HEMOGLOBIN 25.6 PG (27.0-34.0); PLATELET COUNT 242 TH/MM3 (150-450); RED CELL DISTRIBUTION WIDTH 16.6 % (11.6-17.2); REVIEW FLAG FINAL; WHITE BLOOD COUNT 10.7 TH/MM3 (4.0-11.0)
[2016-06-05] MEDS: PANTOPRAZOLE SODIUM 40 MG VIAL IV SCH (09:59)
[2016-06-05] MEDS: FUROSEMIDE 20 MG TAB PO SCH (10:02)
[2016-06-05] MEDS: DILTIAZEM HCL 60 MG TAB PO SCH ×4 (10:03→20:57)
[2016-06-05] MEDS: POTASSIUM CHLORIDE 20 MEQ CONTROLLED RELEASE TAB PO SCH (10:03)
[2016-06-05] MEDS: DOCUSATE SODIUM 50 MG/SENNA 8.6 MG TAB PO SCH ×2 (10:03→20:57)
[2016-06-05] MEDS: SODIUM CHLORIDE 0.9% FLUSH 5 ML FLUSH IV FLUSH SCH ×2 (10:03→20:57)
--- NOTE | 2016-06-05 10:54 | HHI.PR ---
Subjective Remarks Pt. seen today for f/u visit. As per staff, pt. was restless overnight and was picking on her skin, and pulled out her IV lines. Lying in bed lethargic, did not received any anxiolytic or narcotics. Pain and vigorous stimulation woke up pt. Confuse, speech garbled/ slurred - Hx CVA, but abl to respond and follow commands. Denies pain/ discomfort, chest pain, headaches, n/v/d. Objective Vitals Vital Signs Date Time Temp Pulse Resp B/P Pulse Ox O2 Delivery O2 Flow Rate FiO2 06/05/16 08:00 97.7 81 26 127/82 95 06/05/16 08:00 80 06/05/16 07:45 94 06/05/16 04:00 88 24 111/93 93 06/05/16 04:00 89 06/05/16 00:00 98.0 80 18 138/70 91 06/05/16 00:00 90 06/04/16 20:29 94 21 06/04/16 20:00 98.1 91 20 148/68 92 06/04/16 20:00 90 06/04/16 18:00 96 06/04/16 16:00 92 06/04/16 16:00 98.0 92 22 152/76 93 06/04/16 14:00 91 06/04/16 12:00 98.0 87 19 144/79 95 06/04/16 12:00 87 I/O 06/04/16 06/04/16 06/04/16 06/05/16 06/05/16 06/05/16 07:00 15:00 23:00 07:00 15:00 23:00 Intake Total 586 ml 406 ml 381 ml 211 ml Output Total 750 ml 500 ml 1800 ml 350 ml Balance -164 ml -94 ml -1419 ml -139 ml Intake Oral 60 ml 240 ml 100 ml 100 ml IV Total 526 ml 166 ml 281 ml 111 ml Output Urine Total 750 ml 500 ml 1800 ml 350 ml # Bowel Movements 1 0 0 Result Diagram: 06/05/1661906/05/16619 Imaging Last Impressions Chest X-Ray 06/01/16599 Signed Impressions: Service Date/Time: Wednesday, June 01, 2016 05:33 - CONCLUSION: Minimal patchy bilateral lower lung zone atelectasis. Rony Espinoza MD Lower Extremity Ultrasound 06/01/16 0000 Signed Impressions: Service Date/Time: Wednesday, June 01, 2016 02:44 - CONCLUSION: No evidence of lower extremity DVT on the right or left. Rony Espinoza MD Head CT 05/31/16 0000 Signed Impressions: Service Date/Time: Tuesday, May 31, 2016 11:51 - CONCLUSION: 1. 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 2. Negative for an acute process. Vinay Avalos MD FACR Objective Remarks Not in distress PERRL, pink conjunctiva Nose without bleeding Supple neck Normal rate and regular rhythm, no murmurs gallops or rubs appreciated. Poor effort, otherwise clear. Normal bowel sounds, soft, non-tender, nondistended, no guarding. Extremities without clubbing, cyanosis, trace edema improving. Positive for decubitus ulcer, about 2 cm overlying the lower one third of the left lower leg with exudates overlying the ulcer, with diffuse erythema posterior thigh, with surrounding erythema, tender. There is also a necrotic area more than 10 cm posteriorly thigh,? Fluctuance. Awake, Confuse, Orientation to self and place, moves most extremities weakly. Urinary Catheter: Yes Assessment to: Continue [facility] insert reason: Prolonged Immobilization Vascular Central Line Catheter: No A/P Problem List: (1) COPD (chronic obstructive pulmonary disease) ICD Code: J44.9 Status: Acute (2) SOB (shortness of breath) ICD Code: R06.02 Status: Acute (3) Severe sepsis ICD Code: A41.9 Status: Acute (4) Hx-TIA (transient ischemic attack) ICD Code: Z86.73 Status: Acute (5) Edentulous ICD Code: K00.0 Status: Acute (6) Essential hypertension ICD Code: I10 Status: Acute (7) Tobacco use disorder ICD Code: Z72.0 Status: Acute (8) Hyperlipidemia ICD Code: E78.5 Status: Acute Assessment and Plan This is a 60-year-old female with cerebral aneurysm and baseline hemiparesis and aphasia presenting with altered mental status Acute toxic metabolic encephalopathy-resolving. Mental status better today. Patient had cerebral aneurysm clipping in 2007, as Baseline hemiparesis and aphasia. CT scan of the head was unremarkable, ammonia is normal. Continue to monitor neuro status and avoid sedatives. 06/05/16 - minimal verbalization, confuse but responsive to commands and questions, speech cont to be garbled. Acute respiratory failure- history of tracheostomy, history of COPD. Ongoing tobacco abuse. Was on BiPAP, presently on nasal cannula. Continue oxygen supplementation and DuoNeb's. 06/05/16 - Off O2 and saturating well Sinus tachycardia, hypertension-receive adenosine in at the emergency department , BNP normal, troponin negative. Lactic acidosis resolved with volume resuscitation. 2 D Echo 12/25/15 with EF 55-60%. Normal wall motion. Mild LVH, continue Cardizem 60milligrams 4 times a day 06/05/16 - HR 80's-90's, BP improved with diuretic. Potassium replaced. Sepsis-on IVF, lactic acidosis resolved. Status post 3 L normal saline. 06/05/16 - cont to be afebrile History dysphagia - prior history of PEG and removal. Priors history of hepatitis, patient seems to have chronic hepatitis C, follow-up as outpatient. May require diverting colostomy for fecal management due to skin wounds. 06/05/16 - On pureed diet. Acute renal injury-improving, recheck BMP tomorrow 06/04/16 - BUN/ MGMT ANALYST improved , 13/0.56 Anemia-status post blood transfusion. Monitor CBC. 06/04/16 - improved H/H Sepsis secondary to cellulitis of the left lower extremity, with necrotic decubitus ulcer left buttocks with Shannon intertrigo-? History of HIV, Unable to obtain consent for HIV at this time. CD4 pending. Continue vancomycin, Zosyn and Diflucan. Blood cultures negative to date. General surgery evaluated. No plan for emergent surgery but appears decubitus will require debridement. Dr Echeverria deferring management to plastic surgery. Plastic surgery evaluated, recommends no surgery for now. May require diverting colostomy for wound management due to h/o fecal incontinence, General surgery will follow peripherally regarding this issue. cont wound care, will start mepilex ag for thigh wounds. Left sacral wound appears to be superficial, cont pressure relief measures. Hypokalemia- Potassium replacement. PROPH: Heparin subcutaneous for DVT prophylaxis. Protonix 40 mg IV daily for stress ulcer prophylaxis. SOCIAL: Apparent Neglect of at-risk adult. DCF report submitted per ED report. Social work consult to follow. 06/05/16 - information services vice president states DCF accepted pt. case and awaiting for f/u and visit from them Plan to transfer to regular floor if neuro status is improved, wound care management to continue. Discussed with Carlitos Haney MD Jun 05, 2016 10:54
[2016-06-05] MEDS ORDERED: POTASSIUM CHLORIDE 20 MEQ CONTROLLED RELEASE TAB PO ONE (11:00)
[2016-06-05] MEDS: VANCOMYCIN INJ 1,250 MG in SODIUM CHLOR 0.9% 250 ML INJ 250 ML IV SCH (12:20)
[2016-06-05] MEDS: FLUCONAZOLE 100 MG PREMIX BAG 50 ML IV SCH (22:25)
[2016-06-06] MEDS: INSULIN ASPART SUPPLEMENTAL SCALE SQ SCH ×4 (02:00→20:00)
[2016-06-06] MEDS: PIPERACIL-TAZO 3.375 GM PREMIX 50 ML IV SCH ×3 (03:02→13:39)
[2016-06-06] MEDS: CHLORHEXIDINE GLUCONATE 2 % 1 PACK (2 CLOTHS) TOP SCH (03:58)
[2016-06-06 04:54] VITALS: BP 169/84; PULSE 87; RESP 18; TEMP 97.4; O2SAT 96
[2016-06-06] MEDS: HEPARIN SODIUM - SQ 10,000 UNITS/ML VIAL SQ SCH ×2 (05:43→18:00)
[2016-06-06 07:45] LABS: HEMATOCRIT 29.6 % (35.0-46.0); MEAN CELL VOLUME 77.9 FL (80.0-100.0); MEAN CORPUSCULAR HEMOGLOBIN 24.8 PG (27.0-34.0); MEAN CORPUSCULAR HGB CONC 31.8 % (32.0-36.0); PLATELET COUNT 231 TH/MM3 (150-450); RED CELL DISTRIBUTION WIDTH 16.9 % (11.6-17.2); WHITE BLOOD COUNT 6.4 TH/MM3 (4.0-11.0)
[2016-06-06 07:50] LABS: REVIEW FLAG FINAL
[2016-06-06 08:00] VITALS: BP 175/113; PULSE 98; RESP 22; TEMP 96.9; O2SAT 94
[2016-06-06 08:01] LABS: BICARBONATE 28.3 MEQ/L (21.0-32.0); POTASSIUM 4.1 MEQ/L (3.5-5.1)
[2016-06-06] MEDS: PANTOPRAZOLE SODIUM 40 MG VIAL IV SCH (09:07)
[2016-06-06] MEDS: FUROSEMIDE 20 MG TAB PO SCH (09:09)
[2016-06-06] MEDS: DILTIAZEM HCL 60 MG TAB PO SCH ×4 (09:09→23:00)
[2016-06-06] MEDS: POTASSIUM CHLORIDE 20 MEQ CONTROLLED RELEASE TAB PO SCH (09:10)
[2016-06-06] MEDS: SODIUM CHLORIDE 0.9% FLUSH 5 ML FLUSH IV FLUSH SCH ×2 (09:10→21:00)
[2016-06-06] MEDS: DOCUSATE SODIUM 50 MG/SENNA 8.6 MG TAB PO SCH (09:10)
--- NOTE | 2016-06-06 09:25 | HHI.PR ---
Subjective Remarks Pt. seen today for f/u visit. Pt. more awake, alert but still confuse, speech garbled/ slurred - Hx CVA, but able to respond and follow commands. Denies pain / discomfort, chest pain, headaches, n/v/d. Objective Vitals Vital Signs Date Time Temp Pulse Resp B/P Pulse Ox O2 Delivery O2 Flow Rate FiO2 06/06/16 08:00 96.9 98 22 175/113 94 06/06/16 04:54 97.4 87 18 169/84 96 06/06/16 00:00 Room Air 06/05/16 21:59 97.7 88 20 135/90 96 06/05/16 20:00 79 06/05/16 19:34 93 21 06/05/16 16:00 70 06/05/16 16:00 98.0 76 22 152/80 96 06/05/16 12:00 85 06/05/16 12:00 97.4 84 21 131/71 95 I/O 06/05/16 06/05/16 06/05/16 06/06/16 06/06/16 06/06/16 07:00 15:00 23:00 07:00 15:00 23:00 Intake Total 211 ml 647 ml 0 ml 100 ml Output Total 350 ml 325 ml 200 ml 300 ml Balance -139 ml 322 ml -200 ml -200 ml Intake Oral 100 ml 80 ml 0 ml 100 ml IV Total 111 ml 567 ml Output Urine Total 350 ml 325 ml 200 ml 300 ml # Bowel Movements 0 0 1 Result Diagram: 06/06/16 0735 06/06/16 0735 Imaging Last Impressions Chest X-Ray 06/01/16 0600 Signed Impressions: Service Date/Time: Wednesday, June 01, 2016 05:33 - CONCLUSION: Minimal patchy bilateral lower lung zone atelectasis. Rony Espinoza MD Lower Extremity Ultrasound 06/01/16 0000 Signed Impressions: Service Date/Time: Wednesday, June 01, 2016 02:44 - CONCLUSION: No evidence of lower extremity DVT on the right or left. Rony Espinoza MD Head CT 05/31/16 0000 Signed Impressions: Service Date/Time: Tuesday, May 31, 2016 11:51 - CONCLUSION: 1. 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 2. Negative for an acute process. Vinay Avalos MD FACR Objective Remarks Not in distress PERRL, pink conjunctiva Nose without bleeding Supple neck Normal rate and regular rhythm, no murmurs gallops or rubs appreciated. Poor effort, Clear upper lobes, Bilat bibasilar mild crackles Normal bowel sounds, soft, non-tender, nondistended, no guarding. Extremities without clubbing, cyanosis, trace edema improving. Positive for decubitus ulcer, about 2 cm overlying the lower one third of the left lower leg with exudates overlying the ulcer, with diffuse erythema posterior thigh, with surrounding erythema, tender. There is also a necrotic area more than 10 cm posteriorly thigh,? Fluctuance. Multiple erythematous scaly lesions throughtout trunk and abdominal area. Awake, Confuse, Orientation to self and place, moves most extremities weakly. Urinary Catheter: Yes Assessment to: Continue [facility] insert reason: Stage III/IV Press Ulcer Reason for Continuation Left SC PORT A/P Problem List: (1) COPD (chronic obstructive pulmonary disease) ICD Code: J44.9 Status: Acute (2) SOB (shortness of breath) ICD Code: R06.02 Status: Acute (3) Severe sepsis ICD Code: A41.9 Status: Acute (4) Hx-TIA (transient ischemic attack) ICD Code: Z86.73 Status: Acute (5) Edentulous ICD Code: K00.0 Status: Acute (6) Essential hypertension ICD Code: I10 Status: Acute (7) Tobacco use disorder ICD Code: Z72.0 Status: Acute (8) Hyperlipidemia ICD Code: E78.5 Status: Acute Assessment and Plan This is a 60-year-old female with cerebral aneurysm and baseline hemiparesis and aphasia presenting with altered mental status Acute toxic metabolic encephalopathy-resolving. Mental status better today. Patient had cerebral aneurysm clipping in 2007, as Baseline hemiparesis and aphasia. CT scan of the head was unremarkable, ammonia is normal. Continue to monitor neuro status and avoid sedatives. Ammonia within normal limits. Acute respiratory failure- history of tracheostomy, history of COPD. Ongoing tobacco abuse. Was on BiPAP, presently on nasal cannula. Continue oxygen supplementation and DuoNeb's. Crackles at bases, cont with diuretics Sinus tachycardia, hypertension-receive adenosine in at the emergency department , BNP normal, troponin negative. Lactic acidosis resolved with volume resuscitation. 2 D Echo 12/25/15 with EF 55-60%. Normal wall motion. Mild LVH, continue Cardizem 60milligrams 4 times a day, continue diuresis Sepsis-on IVF, lactic acidosis resolved. Status post 3 L normal saline. Afebrile, no leukocytosis. History dysphagia - prior history of PEG and removal. Priors history of hepatitis, patient seems to have chronic hepatitis C, follow-up as outpatient. May require diverting colostomy for fecal management due to skin wounds. On pureed diet. Thickened liquid Acute renal injury- resolved , 06/06/16 - BUN/ FREIGHT ROUTER 12/0.6 Anemia-status post blood transfusion. Monitor CBC. 06/06/16 - stable Sepsis secondary to cellulitis of the left lower extremity, with necrotic decubitus ulcer left buttocks with Shannon intertrigo-? History of HIV, Unable to obtain consent for HIV at this time. CD4 pending. Continue antibiotics, stop vancomycin, switch Zosyn to Unasyn and continue Diflucan. Blood cultures negative to date. General surgery evaluated. No plan for emergent surgery but appears decubitus will require debridement. Dr Echeverria deferring management to plastic surgery. Plastic surgery evaluated, recommends no surgery for now. May require diverting colostomy for wound management due to h/o fecal incontinence, General surgery will follow peripherally regarding this issue. Continue wound care, mepilex ag for thigh wounds. Left sacral wound appears to be superficial, cont pressure relief measures. Hypokalemia- Potassium replacement. PROPH: Heparin subcutaneous for DVT prophylaxis. Protonix 40 mg IV daily for stress ulcer prophylaxis. SOCIAL: Apparent Neglect of at-risk adult. DCF report submitted per ED report. Social work consult to follow. 06/05/16 - assistant guest services manager states DCF accepted pt. case and awaiting for f/u and visit from them, will likely need placement Discussed with Carlitos Haney MD Jun 06, 2016 09:25 and visit from them Discussed with Carlitos Haney MD Jun 06, 2016 9:25 am
[2016-06-06] MEDS ORDERED: DOCUSATE SODIUM 50 MG/SENNA 8.6 MG TAB PO PRN (10:15)
[2016-06-06] MEDS: VANCOMYCIN INJ 1,250 MG in SODIUM CHLOR 0.9% 250 ML INJ 250 ML IV SCH (11:00)
[2016-06-06 12:00] VITALS: BP 161/78; PULSE 97; RESP 22; TEMP 96.8; O2SAT 96
[2016-06-06 16:00] VITALS: BP 191/99; PULSE 119; RESP 24; TEMP 99.2; O2SAT 92
[2016-06-06] MEDS: RESP: ALBUTEROL 2.5 MG/IPRATROPIUM 0.5 MG NEB (SCH) NEB (20:36)
[2016-06-06] MEDS: FLUCONAZOLE 100 MG PREMIX BAG 50 ML IV SCH (21:00)
[2016-06-06 22:28] VITALS: BP 169/79; PULSE 92; RESP 18; TEMP 97; O2SAT 94
[2016-06-06] MEDS: AMPICILLIN-SULBACTAM INJ 3 GM in SODIUM CHLORIDE 0.9% INJ 100 ML IV SCH (23:00)
[2016-06-07] VITALS (7 sets, daily range): BP systolic 133–174; BP diastolic 79–89; PULSE 84–100; RESP 18–20; TEMP 96.2–98.2; O2SAT 93–97
[2016-06-07] MEDS: INSULIN ASPART SUPPLEMENTAL SCALE SQ SCH ×4 (02:00→20:00)
[2016-06-07] MEDS: AMPICILLIN-SULBACTAM INJ 3 GM in SODIUM CHLORIDE 0.9% INJ 100 ML IV SCH ×4 (03:40→21:08)
[2016-06-07] MEDS: CHLORHEXIDINE GLUCONATE 2 % 1 PACK (2 CLOTHS) TOP SCH (04:00)
[2016-06-07] MEDS: HEPARIN SODIUM - SQ 10,000 UNITS/ML VIAL SQ SCH ×2 (05:49→17:48)
[2016-06-07 07:22] LABS: BICARBONATE 25.6 MEQ/L (21.0-32.0); POTASSIUM 3.4 MEQ/L (3.5-5.1)
[2016-06-07 07:47] LABS: CALCIUM-PROTEIN CORRECTED 7.9 MG/DL (8.5-10.1)
[2016-06-07] MEDS: RESP: ALBUTEROL 2.5 MG/IPRATROPIUM 0.5 MG NEB (SCH) NEB ×2 (07:51→20:45)
[2016-06-07] MEDS: POTASSIUM CHLORIDE 20 MEQ CONTROLLED RELEASE TAB PO SCH (07:56)
[2016-06-07] MEDS: DILTIAZEM HCL 60 MG TAB PO SCH ×4 (07:56→21:08)
[2016-06-07] MEDS: FUROSEMIDE 20 MG TAB PO SCH (07:56)
[2016-06-07] MEDS: PANTOPRAZOLE SOD 40 MG DELAYED RELEASE TAB PO SCH (07:56)
[2016-06-07] MEDS: SODIUM CHLORIDE 0.9% FLUSH 5 ML FLUSH IV FLUSH SCH ×2 (07:57→21:00)
[2016-06-07 08:24] LABS: HEMATOCRIT 22.8 % (35.0-46.0); MEAN CELL VOLUME 75.9 FL (80.0-100.0); PLATELET COUNT 188 TH/MM3 (150-450); RED CELL DISTRIBUTION WIDTH 16.7 % (11.6-17.2); WHITE BLOOD COUNT 3.8 TH/MM3 (4.0-11.0)
[2016-06-07] MEDS ORDERED: PHARMACY ORDERED LAB XX ONE (08:45)
[2016-06-07] MEDS ORDERED: POTASSIUM CHLORIDE 20 MEQ CONTROLLED RELEASE TAB PO ONE (17:00)
[2016-06-07] MEDS ORDERED: CALCIUM CHLORIDE INJ 2 GM in SODIUM CHLORIDE 0.9% INJ 100 ML IV ONE (18:00)
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
[2016-06-07] MEDS: METOPROLOL TARTRATE 100 MG TAB PO SCH (21:08)
[2016-06-07] MEDS: FLUCONAZOLE 100 MG PREMIX BAG 50 ML IV SCH (21:09)
[2016-06-08] VITALS (8 sets, daily range): BP systolic 136–185; BP diastolic 77–90; PULSE 74–83; RESP 18–20; TEMP 96.1–98.8; O2SAT 93–96
[2016-06-08] MEDS: INSULIN ASPART SUPPLEMENTAL SCALE SQ SCH (01:32)
[2016-06-08] MEDS: AMPICILLIN-SULBACTAM INJ 3 GM in SODIUM CHLORIDE 0.9% INJ 100 ML IV SCH ×4 (01:35→23:28)
[2016-06-08] MEDS: CHLORHEXIDINE GLUCONATE 2 % 1 PACK (2 CLOTHS) TOP SCH (04:00)
[2016-06-08] MEDS: HEPARIN SODIUM - SQ 10,000 UNITS/ML VIAL SQ SCH ×2 (05:41→17:05)
[2016-06-08] MEDS: FUROSEMIDE 20 MG TAB PO SCH (08:21)
[2016-06-08] MEDS: DILTIAZEM HCL 60 MG TAB PO SCH ×4 (08:21→23:28)
[2016-06-08] MEDS: POTASSIUM CHLORIDE 20 MEQ CONTROLLED RELEASE TAB PO SCH (08:21)
[2016-06-08] MEDS: METOPROLOL TARTRATE 100 MG TAB PO SCH ×2 (08:21→23:28)
[2016-06-08] MEDS: PANTOPRAZOLE SOD 40 MG DELAYED RELEASE TAB PO SCH (08:21)
[2016-06-08] MEDS: SODIUM CHLORIDE 0.9% FLUSH 5 ML FLUSH IV FLUSH SCH (09:00)
[2016-06-08] MEDS: RESP: ALBUTEROL 2.5 MG/IPRATROPIUM 0.5 MG NEB (SCH) NEB ×2 (09:27→19:38)
[2016-06-08 09:28] LABS: AUTOMATED NEUTROPHIL # 2.4 TH/MM3 (1.8-7.7); BASOPHIL % 0.7 % (0.0-2.0); EOSINOPHIL # 0.3 TH/MM3 (0-0.4); EOSINOPHIL % 8.5 % (0.0-4.0); HEMATOCRIT 26.1 % (35.0-46.0); LYMPH % 17.4 % (9.0-44.0); LYMPHOCYTE # 0.6 TH/MM3 (1.0-4.8); MEAN CELL VOLUME 76.2 FL (80.0-100.0); MEAN CORPUSCULAR HEMOGLOBIN 24.5 PG (27.0-34.0); MEAN CORPUSCULAR HGB CONC 32.1 % (32.0-36.0); MONO % 8.1 % (0.0-8.0); NEUT % 65.3 % (16.0-70.0); PLATELET COUNT 217 TH/MM3 (150-450); RED BLOOD COUNT 3.42 MIL/MM3 (4.00-5.30); RED CELL DISTRIBUTION WIDTH 16.6 % (11.6-17.2); WHITE BLOOD COUNT 3.7 TH/MM3 (4.0-11.0)
[2016-06-08 09:31] LABS: HEMO FLAGS AUTO DIFF
[2016-06-08 09:51] LABS: ALKALINE PHOSPHATASE 61 U/L (45-117); ALT (GPT) 29 U/L (10-53); ANION GAP 6 MEQ/L (5-15); AST (GOT) 47 U/L (15-37); BICARBONATE 26.4 MEQ/L (21.0-32.0); BLOOD UREA NITROGEN 10 MG/DL (7-18); CHLORIDE 110 MEQ/L (98-107); FERRITIN 204 NG/ML (8-252); GLOMERULAR FILTRATION RATE 97 ML/MIN (>89); MAGNESIUM 1.9 MG/DL (1.5-2.5); POTASSIUM 3.5 MEQ/L (3.5-5.1); SODIUM (NA) 142 MEQ/L (136-145); TOTAL BILIRUBIN ADULT 0.5 MG/DL (0.2-1.0); TRANSFERRIN IRON PROFILE 176 MG/DL (200-360)
[2016-06-08] MEDS ORDERED: POTASSIUM CHLORIDE 20 MEQ CONTROLLED RELEASE TAB PO ONE (11:15)
[2016-06-08 12:07] LABS: OVALOCYTES 1+ (NORMAL); SCAN/DIFF AUTO DIFF CONFIRMED
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
[2016-06-08] MEDS: FLUCONAZOLE 100 MG PREMIX BAG 50 ML IV SCH (23:28)
[2016-06-09] VITALS (7 sets, daily range): BP systolic 127–161; BP diastolic 73–92; PULSE 72–93; RESP 16–18; TEMP 96.6–98.6; O2SAT 94–98
[2016-06-09] MEDS: AMPICILLIN-SULBACTAM INJ 3 GM in SODIUM CHLORIDE 0.9% INJ 100 ML IV SCH ×4 (01:21→21:15)
[2016-06-09] MEDS: CHLORHEXIDINE GLUCONATE 2 % 1 PACK (2 CLOTHS) TOP SCH (04:00)
[2016-06-09] MEDS: HEPARIN SODIUM - SQ 10,000 UNITS/ML VIAL SQ SCH ×2 (04:06→18:32)
[2016-06-09] MEDS: RESP: ALBUTEROL 2.5 MG/IPRATROPIUM 0.5 MG NEB (SCH) NEB ×2 (08:00→20:41)
[2016-06-09] MEDS: METOPROLOL TARTRATE 100 MG TAB PO SCH ×2 (08:38→21:14)
[2016-06-09] MEDS: PANTOPRAZOLE SOD 40 MG DELAYED RELEASE TAB PO SCH (08:39)
[2016-06-09] MEDS: POTASSIUM CHLORIDE 20 MEQ CONTROLLED RELEASE TAB PO SCH (08:39)
[2016-06-09] MEDS: DILTIAZEM HCL 60 MG TAB PO SCH ×4 (08:39→21:14)
[2016-06-09 10:00] LABS: BASOPHIL % 0.8 % (0.0-2.0); EOSINOPHIL # 0.3 TH/MM3 (0-0.4); EOSINOPHIL % 8.5 % (0.0-4.0); HEMATOCRIT 25.2 % (35.0-46.0); LYMPH % 22.2 % (9.0-44.0); LYMPHOCYTE # 0.7 TH/MM3 (1.0-4.8); MEAN CELL VOLUME 76.2 FL (80.0-100.0); MEAN CORPUSCULAR HEMOGLOBIN 24.5 PG (27.0-34.0); MEAN CORPUSCULAR HGB CONC 32.1 % (32.0-36.0); MONO % 7.8 % (0.0-8.0); NEUT % 60.7 % (16.0-70.0); PLATELET COUNT 239 TH/MM3 (150-450); RED CELL DISTRIBUTION WIDTH 17.2 % (11.6-17.2); WHITE BLOOD COUNT 3.3 TH/MM3 (4.0-11.0)
[2016-06-09 10:06] LABS: HEMO FLAGS AUTO DIFF
[2016-06-09] MEDS: SODIUM CHLORIDE 0.9% FLUSH 5 ML FLUSH IV FLUSH SCH ×2 (10:28→21:00)
[2016-06-09 10:38] LABS: ALKALINE PHOSPHATASE 58 U/L (45-117); ALT (GPT) 29 U/L (10-53); ANION GAP 8 MEQ/L (5-15); AST (GOT) 48 U/L (15-37); BLOOD UREA NITROGEN 10 MG/DL (7-18); CHLORIDE 108 MEQ/L (98-107); GLOMERULAR FILTRATION RATE 101 ML/MIN (>89); MAGNESIUM 1.9 MG/DL (1.5-2.5); POTASSIUM 3.5 MEQ/L (3.5-5.1); SODIUM (NA) 141 MEQ/L (136-145); TOTAL BILIRUBIN ADULT 0.5 MG/DL (0.2-1.0)
[2016-06-09 10:42] LABS: KERATOCYTES OCC (NORMAL); PLATELET MORPHOLOGY ENLARGED (NORMAL); SCAN/DIFF AUTO DIFF CONFIRMED
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
[2016-06-09] MEDS ORDERED: POTASSIUM CHLORIDE 10 MEQ CONTROLLED RELEASE TAB PO ONE (16:00)
[2016-06-09] MEDS ORDERED: PERMETHRIN 1% LOTION 60 ML BTL TOPICAL ONE (16:45)
[2016-06-09] MEDS: diphenhydrAMINE HCL 25 MG CAP PO PRN (18:30)
[2016-06-09] MEDS: FLUCONAZOLE 100 MG PREMIX BAG 50 ML IV SCH (21:15)
[2016-06-09] MEDS ORDERED: PERMETHRIN 5% CREAM 60 GM TOPICAL ONE (22:15)
--- NOTE | 2016-06-09 22:17 | PD.ID.CON ---
History of Present Illness Service OD Consult Requested By Dr Gonzalez Reason for Consult sepsis, decubitus ulcer Primary Care Physician Unknown Diagnoses: History of Present Illness Pt is unable to provide meanngful history 60 F Review of Systems ROS Limitations: Speech Impaired, Poor Historian Past Family Social History Allergies: Coded Allergies: MRI PRECAUTION (Verified Adverse Reaction, Severe, ANEURYSM CLIP PER DR. [id number]-NL-BWT-09/08/09, 05/31/16) Past Medical History Essential hypertension COPD Past Surgical History Left subclavian port Cerebral aneursym repair. (surgical scar noted on L wrist) Trach PEG Active Ordered Medications Medications where reviewed in EMR Antibiotics Include: Unasyn Family History Unable to obtain from patient due to clinical condition. Social History does not drink alcohol. smoking No history of substance abuse. She lives with her . Her states that she has canes and walkers at home but she refuses to use them. He states she shuffles but ambulates unassisted at baseline up until 3 -4 weeks ago. She has 2 adult children from a prior marriage but does not have contacts for them. Physical Exam Vital Signs Vital Signs Date Time Temp Pulse Resp B/P Pulse Ox O2 Delivery O2 Flow Rate FiO2 06/09/16 20:53 98.6 93 18 128/83 95 06/09/16 20:41 96 21 06/09/16 16:00 97.4 80 16 136/73 96 06/09/16 12:00 98.2 77 18 127/73 98 06/09/16 08:00 Room Air 06/09/16 08:00 96.8 81 18 139/79 96 06/09/16 04:28 97.7 72 16 143/92 95 06/09/16 00:55 96.6 84 16 161/87 94 06/08/16 23:00 Room Air Physical Exam CONSTITUTIONAL/GENERAL: This is an adequately nourished patient, in no apparent distress. Vigourously scratching multiple bosy areas during the interview SKIN: No jaundice, Multiple excoriations and scattered pruritic open lesions and superficial wounds. Skin temperature appropriate. Not diaphoretic. Unstagible sacral decubitus wo obvious signs of infection (no erythema, no drainage, no odor) Posterior bilateral thighs with erythema and superficial abrasions. HEAD: Atraumatic. Normocephalic. EYES: Pupils equal and round and reactive. Extraocular motions intact. No scleral icterus. No injection or drainage. Fundi not examined. ENT: Hearing grossly normal. Nose without bleeding or purulent drainage. Throat without visible erythema, exudates, masses, or lesions. NECK: Trachea midline. Supple, nontender. CARDIOVASCULAR: Regular rate and rhythm without murmurs, gallops, or rubs. No JVD. Peripheral pulses symmetric. Pt has PORT in L chest with palpable cor, no erythema, no edema or fluctuance RESPIRATORY/CHEST: Symmetric, unlabored respirations. Clear to auscultation. Breath sounds equal bilaterally. No wheezes, rales, or rhonchi. GASTROINTESTINAL: Abdomen soft, non-tender, nondistended. No hepato-splenomegaly , or palpable masses. No guarding. Bowel sounds present. Incontinent of yellowish soft stool GENITOURINARY: Without palpable bladder distension. Duke catheter in place. MUSCULOSKELETAL: Extremities without clubbing, cyanosis, + 2 edema. No mottling or clubbing. LYMPHATICS: No palpable cervical or supraclavicular adenopathy. NEUROLOGICAL: Awake and alert. Aphasic Follows commands intermittently . Moves all extremities. PSYCHIATRIC: cooperative, calm Laboratory Laboratory Tests Test 06/09/16 09:22 White Blood Count 3.3 Red Blood Count 3.30 Hemoglobin 8.1 Hematocrit 25.2 Mean Corpuscular Volume 76.2 Mean Corpuscular Hemoglobin 24.5 Mean Corpuscular Hemoglobin 32.1 Concent Red Cell Distribution Width 17.2 Platelet Count 239 Mean Platelet Volume 8.1 Neutrophils (%) (Auto) 60.7 Lymphocytes (%) (Auto) 22.2 Monocytes (%) (Auto) 7.8 Eosinophils (%) (Auto) 8.5 Basophils (%) (Auto) 0.8 Neutrophils # (Auto) 2.0 Lymphocytes # (Auto) 0.7 Monocytes # (Auto) 0.3 Eosinophils # (Auto) 0.3 Basophils # (Auto) 0.0 CBC Comment AUTO DIFF Differential Comment AUTO DIFF CONFIRMED Platelet Morphology Comment ENLARGED Keratocytes OCC Sodium Level 141 Potassium Level 3.5 Chloride Level 108 Carbon Dioxide Level 25.0 Anion Gap 8 Blood Urea Nitrogen 10 Creatinine 0.61 Estimat Glomerular Filtration 101 Rate Random Glucose 113 Calcium Level 7.6 Phosphorus Level 2.4 Magnesium Level 1.9 Total Bilirubin 0.5 Aspartate Amino Transf 48 (AST/SGOT) Alanine Aminotransferase 29 (ALT/SGPT) Alkaline Phosphatase 58 Total Protein 6.9 Albumin 1.8 Result Diagram: 06/09/1692106/09/16921 Imaging Last Impressions Chest X-Ray 06/01/16 0600 Signed Impressions: Service Date/Time: Wednesday, June 01, 2016 05:33 - CONCLUSION: Minimal patchy bilateral lower lung zone atelectasis. Rony Espinoza MD Lower Extremity Ultrasound 06/01/16 0000 Signed Impressions: Service Date/Time: Wednesday, June 01, 2016 02:44 - CONCLUSION: No evidence of lower extremity DVT on the right or left. Rony Espinoza MD Head CT 05/31/16 0000 Signed Impressions: Service Date/Time: Tuesday, May 31, 2016 11:51 - CONCLUSION: 1. 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 2. Negative for an acute process. Vinay Avalos MD FACR Assessment and Plan Assessment and Plan Sepsis - resolved Neglect Unstagible decub with eschars Multiple excoriations with some superficial infection vs port of entry for sepsis Plastics recommended no surgery or debridement at this time but conservative measures to include Low flow mattress, Wound care nurse for recommendations of dressings, need moisture control and bacteriostatic, Maxorb; Rotation every 3 hours and optimisation of nutritional parameters and to consider colostomy. - cont abx for now - monitor WBC - consider empiric antiscabies tx - dw Lanette Smith MD Jun 09, 2016 22:17
[2016-06-10] VITALS (11 sets, daily range): BP systolic 106–143; BP diastolic 60–79; PULSE 77–92; RESP 16–24; TEMP 96.9–98.6; O2SAT 93–99
[2016-06-10] MEDS: AMPICILLIN-SULBACTAM INJ 3 GM in SODIUM CHLORIDE 0.9% INJ 100 ML IV SCH ×4 (02:24→22:07)
[2016-06-10] MEDS: CHLORHEXIDINE GLUCONATE 2 % 1 PACK (2 CLOTHS) TOP SCH (03:59)
[2016-06-10] MEDS: diphenhydrAMINE HCL 25 MG CAP PO PRN ×4 (05:09→23:36)
[2016-06-10] MEDS: HEPARIN SODIUM - SQ 10,000 UNITS/ML VIAL SQ SCH ×2 (05:10→18:16)
[2016-06-10 07:20] LABS: AUTOMATED NEUTROPHIL # 1.7 TH/MM3 (1.8-7.7); EOSINOPHIL # 0.2 TH/MM3 (0-0.4); EOSINOPHIL % 7.5 % (0.0-4.0); LYMPH % 27.2 % (9.0-44.0); LYMPHOCYTE # 0.8 TH/MM3 (1.0-4.8); MEAN CELL VOLUME 75.8 FL (80.0-100.0); MEAN CORPUSCULAR HEMOGLOBIN 24.5 PG (27.0-34.0); MEAN CORPUSCULAR HGB CONC 32.3 % (32.0-36.0); MONO % 10.2 % (0.0-8.0); NEUT % 54.1 % (16.0-70.0); PLATELET COUNT 231 TH/MM3 (150-450); RED BLOOD COUNT 2.72 MIL/MM3 (4.00-5.30); RED CELL DISTRIBUTION WIDTH 17.2 % (11.6-17.2); WHITE BLOOD COUNT 3.1 TH/MM3 (4.0-11.0)
[2016-06-10 07:26] LABS: ALT (GPT) 28 U/L (10-53); ANION GAP 7 MEQ/L (5-15); AST (GOT) 40 U/L (15-37); BICARBONATE 23.1 MEQ/L (21.0-32.0); BLOOD UREA NITROGEN 10 MG/DL (7-18); CHLORIDE 112 MEQ/L (98-107); GLOMERULAR FILTRATION RATE 95 ML/MIN (>89); MAGNESIUM 1.8 MG/DL (1.5-2.5); POTASSIUM 3.7 MEQ/L (3.5-5.1); SODIUM (NA) 142 MEQ/L (136-145)
[2016-06-10 07:29] LABS: ALKALINE PHOSPHATASE 56 U/L (45-117); TOTAL BILIRUBIN ADULT 0.3 MG/DL (0.2-1.0)
[2016-06-10 07:31] LABS: HEMO FLAGS AUTO DIFF
[2016-06-10 07:34] LABS: HEMATOCRIT 20.6 % (35.0-46.0)
[2016-06-10 08:15] LABS: SCAN/DIFF AUTO DIFF CONFIRMED
[2016-06-10 08:45] LABS: AUTOMATED NEUTROPHIL # 1.6 TH/MM3 (1.8-7.7); EOSINOPHIL # 0.3 TH/MM3 (0-0.4); EOSINOPHIL % 9.2 % (0.0-4.0); HEMATOCRIT 21.4 % (35.0-46.0); LYMPH % 27.3 % (9.0-44.0); LYMPHOCYTE # 0.8 TH/MM3 (1.0-4.8); MEAN CELL VOLUME 75.1 FL (80.0-100.0); MEAN CORPUSCULAR HEMOGLOBIN 24.4 PG (27.0-34.0); MEAN CORPUSCULAR HGB CONC 32.5 % (32.0-36.0); MONO % 10.1 % (0.0-8.0); NEUT % 52.4 % (16.0-70.0); PLATELET COUNT 262 TH/MM3 (150-450); RED BLOOD COUNT 2.86 MIL/MM3 (4.00-5.30); WHITE BLOOD COUNT 3.1 TH/MM3 (4.0-11.0)
[2016-06-10 08:47] LABS: HEMO FLAGS AUTO DIFF
[2016-06-10] MEDS: PANTOPRAZOLE SOD 40 MG DELAYED RELEASE TAB PO SCH (08:59)
[2016-06-10] MEDS: SODIUM CHLORIDE 0.9% FLUSH 5 ML FLUSH IV FLUSH SCH ×2 (09:00→22:06)
[2016-06-10] MEDS: METOPROLOL TARTRATE 100 MG TAB PO SCH ×2 (09:00→22:06)
[2016-06-10] MEDS: DILTIAZEM HCL 60 MG TAB PO SCH ×4 (09:00→22:06)
[2016-06-10] MEDS: RESP: ALBUTEROL 2.5 MG/IPRATROPIUM 0.5 MG NEB (SCH) NEB (09:11)
[2016-06-10 09:39] LABS: SCAN/DIFF AUTO DIFF CONFIRMED
[2016-06-10] MEDS ORDERED: ACETAMINOPHEN 325 MG TAB PO PRN (15:00)
[2016-06-10] MEDS ORDERED: SODIUM CHLOR 0.9% 250 ML INJ 250 ML IV ONE (15:00)
[2016-06-10] MEDS ORDERED: FUROSEMIDE 20 MG/2 ML VIAL IV ONE (15:00)
[2016-06-10] MEDS ORDERED: diphenhydrAMINE HCL 25 MG CAP PO PRN (15:00)
[2016-06-10] MEDS: FLUCONAZOLE 100 MG PREMIX BAG 50 ML IV SCH (22:07)
[2016-06-10] MEDS: POTASSIUM PHOSPHATE/SODIUM PHOSPHATE 250 MG TAB PO SCH (22:25)
[2016-06-11] VITALS (8 sets, daily range): BP systolic 101–171; BP diastolic 60–94; PULSE 59–88; RESP 18–28; TEMP 96.7–97.9; O2SAT 91–100
[2016-06-11] MEDS: POTASSIUM PHOSPHATE/SODIUM PHOSPHATE 250 MG TAB PO SCH ×5 (01:39→23:49)
[2016-06-11] MEDS: AMPICILLIN-SULBACTAM INJ 3 GM in SODIUM CHLORIDE 0.9% INJ 100 ML IV SCH ×2 (01:40→10:24)
[2016-06-11] MEDS: CHLORHEXIDINE GLUCONATE 2 % 1 PACK (2 CLOTHS) TOP SCH (03:43)
[2016-06-11] MEDS: HEPARIN SODIUM - SQ 10,000 UNITS/ML VIAL SQ SCH ×2 (05:50→18:32)
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
[2016-06-11] MEDS ORDERED: PNEUMOCOCCAL POLYVALENT INJ 25 MCG/0.5 ML SYR IM ONE (10:00)
[2016-06-11] MEDS ORDERED: INFLUENZA VIRUS VACCINE (QUADRIVALENT) 0.5 ML SYR IM ONE (10:00)
[2016-06-11] MEDS: DILTIAZEM HCL 60 MG TAB PO SCH ×4 (10:25→20:52)
[2016-06-11] MEDS: PANTOPRAZOLE SOD 40 MG DELAYED RELEASE TAB PO SCH (10:25)
[2016-06-11] MEDS: METOPROLOL TARTRATE 100 MG TAB PO SCH ×2 (10:25→20:52)
[2016-06-11] MEDS: diphenhydrAMINE HCL 25 MG CAP PO PRN ×3 (10:25→20:52)
[2016-06-11] MEDS: SODIUM CHLORIDE 0.9% FLUSH 5 ML FLUSH IV FLUSH SCH ×2 (10:27→20:52)
[2016-06-11 10:52] LABS: BASOPHIL % 0.8 % (0.0-2.0); EOSINOPHIL # 0.3 TH/MM3 (0-0.4); EOSINOPHIL % 8.9 % (0.0-4.0); HEMATOCRIT 32.9 % (35.0-46.0); HEMO FLAGS DIFF FINAL; LYMPH % 25.5 % (9.0-44.0); LYMPHOCYTE # 0.9 TH/MM3 (1.0-4.8); MEAN CELL VOLUME 76.5 FL (80.0-100.0); MEAN CORPUSCULAR HEMOGLOBIN 25.5 PG (27.0-34.0); MEAN CORPUSCULAR HGB CONC 33.4 % (32.0-36.0); MONO % 8.8 % (0.0-8.0); PLATELET COUNT 255 TH/MM3 (150-450); RED BLOOD COUNT 4.31 MIL/MM3 (4.00-5.30); RED CELL DISTRIBUTION WIDTH 16.1 % (11.6-17.2); WHITE BLOOD COUNT 3.6 TH/MM3 (4.0-11.0)
[2016-06-11 11:12] LABS: ALT (GPT) 33 U/L (10-53); ANION GAP 6 MEQ/L (5-15); AST (GOT) 39 U/L (15-37); BICARBONATE 26.8 MEQ/L (21.0-32.0); BLOOD UREA NITROGEN 10 MG/DL (7-18); CHLORIDE 108 MEQ/L (98-107); GLOMERULAR FILTRATION RATE 87 ML/MIN (>89); POTASSIUM 3.3 MEQ/L (3.5-5.1); SODIUM (NA) 141 MEQ/L (136-145)
[2016-06-11 11:15] LABS: ALKALINE PHOSPHATASE 72 U/L (45-117); TOTAL BILIRUBIN ADULT 0.5 MG/DL (0.2-1.0)
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
--- NOTE | 2016-06-11 15:11 | HHI.IDPN ---
Subjective Subjective Remarks pt constantly itching Pts brother at bedside reports that she is not stoppping scratching pt is afebrile Antibiotics Unasyn Allergies: Coded Allergies: MRI PRECAUTION (Verified Adverse Reaction, Severe, ANEURYSM CLIP PER DR. [id number]-09/08/09, 05/31/16) *MDRO Multi-Drug Resistant Organism (Verified Adverse Reaction, Unknown, 06/10/16) MRSA (sputum) - 10/2004 & 11/2004 Objective . Vital Signs Date Time Temp Pulse Resp B/P Pulse Ox O2 Delivery O2 Flow Rate FiO2 06/11/16 08:00 97.9 82 20 165/94 91 06/11/16 04:00 97.4 85 20 171/83 97 06/11/16 03:57 154/82 06/11/16 00:30 97.9 79 18 152/85 98 06/10/16 22:40 97.2 78 16 122/78 96 06/10/16 22:30 Room Air 06/10/16 22:10 97.2 80 18 114/70 96 06/10/16 21:56 97.8 80 18 115/63 98 06/10/16 19:30 96.9 90 24 106/60 99 06/10/16 19:00 97.1 92 18 140/66 98 06/10/16 18:45 97.1 90 18 137/68 95 06/10/16 16:30 98.5 92 20 128/67 94 06/10/16 06/10/16 06/11/16 15:00 23:00 07:00 Intake Total 531 ml 700 ml 152 ml Output Total 750 ml 1100 ml Balance -219 ml 700 ml -948 ml IV Total 531 ml 450 ml 152 ml Packed Cells 250 ml Output Urine Total 750 ml 1100 ml Bladder Scan Volume Amount 281 ml 281 ml # Bowel Movements 2 2 . Laboratory Tests Test 06/10/16 06/10/16 06/11/16 05:46 08:31 10:13 White Blood Count 3.1 TH/MM3 3.1 TH/MM3 3.6 TH/MM3 Red Blood Count 2.72 MIL/MM3 2.86 MIL/MM3 4.31 MIL/MM3 Hemoglobin 6.7 GM/DL 7.0 GM/DL 11.0 GM/DL Hematocrit 20.6 % 21.4 % 32.9 % Mean Corpuscular Volume 75.8 FL 75.1 FL 76.5 FL Mean Corpuscular Hemoglobin 24.5 PG 24.4 PG 25.5 PG Mean Corpuscular Hemoglobin 32.3 % 32.5 % 33.4 % Concent Red Cell Distribution Width 17.2 % 17.0 % 16.1 % Platelet Count 231 TH/MM3 262 TH/MM3 255 TH/MM3 Mean Platelet Volume 8.4 FL 8.0 FL 8.5 FL Neutrophils (%) (Auto) 54.1 % 52.4 % 56.0 % Lymphocytes (%) (Auto) 27.2 % 27.3 % 25.5 % Monocytes (%) (Auto) 10.2 % 10.1 % 8.8 % Eosinophils (%) (Auto) 7.5 % 9.2 % 8.9 % Basophils (%) (Auto) 1.0 % 1.0 % 0.8 % Neutrophils # (Auto) 1.7 TH/MM3 1.6 TH/MM3 2.0 TH/MM3 Lymphocytes # (Auto) 0.8 TH/MM3 0.8 TH/MM3 0.9 TH/MM3 Monocytes # (Auto) 0.3 TH/MM3 0.3 TH/MM3 0.3 TH/MM3 Eosinophils # (Auto) 0.2 TH/MM3 0.3 TH/MM3 0.3 TH/MM3 Basophils # (Auto) 0.0 TH/MM3 0.0 TH/MM3 0.0 TH/MM3 CBC Comment AUTO DIFF AUTO DIFF DIFF FINAL Differential Comment AUTO DIFF AUTO DIFF CONFIRMED CONFIRMED Laboratory Tests Test 06/10/16 06/11/16 05:46 10:13 Sodium Level 142 MEQ/L 141 MEQ/L Potassium Level 3.7 MEQ/L 3.3 MEQ/L Chloride Level 112 MEQ/L 108 MEQ/L Carbon Dioxide Level 23.1 MEQ/L 26.8 MEQ/L Anion Gap 7 MEQ/L 6 MEQ/L Blood Urea Nitrogen 10 MG/DL 10 MG/DL Creatinine 0.64 MG/DL 0.69 MG/DL Estimat Glomerular Filtration 95 ML/MIN 87 ML/MIN Rate Random Glucose 119 MG/DL 108 MG/DL Calcium Level 7.9 MG/DL 8.2 MG/DL Phosphorus Level 2.4 MG/DL Magnesium Level 1.8 MG/DL Total Bilirubin 0.3 MG/DL 0.5 MG/DL Aspartate Amino Transf 40 U/L 39 U/L (AST/SGOT) Alanine Aminotransferase 28 U/L 33 U/L (ALT/SGPT) Alkaline Phosphatase 56 U/L 72 U/L Total Protein 6.4 GM/DL 7.6 GM/DL Albumin 1.8 GM/DL 2.1 GM/DL Imaging Last Impressions Chest X-Ray 06/01/16 0600 Signed Impressions: Service Date/Time: Wednesday, June 01, 2016 05:33 - CONCLUSION: Minimal patchy bilateral lower lung zone atelectasis. Rony Espinoza MD Lower Extremity Ultrasound 06/01/16 0000 Signed Impressions: Service Date/Time: Wednesday, June 01, 2016 02:44 - CONCLUSION: No evidence of lower extremity DVT on the right or left. Rony Espinoza MD Head CT 05/31/16 0000 Signed Impressions: Service Date/Time: Tuesday, May 31, 2016 11:51 - CONCLUSION: 1. 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 2. Negative for an acute process. Vinay Avalos MD FACR Physical Exam CONSTITUTIONAL/GENERAL: This is an adequately nourished patient, in no apparent distress. Vigourously scratching multiple bosy areas during the interview SKIN: No jaundice, Multiple excoriations and scattered pruritic open lesions and superficial wounds. Skin temperature appropriate. Not diaphoretic. Unstagible sacral decubitus wo obvious signs of infection (no erythema, no drainage, no odor) Posterior bilateral thighs with erythema and superficial abrasions. Erythema on post thighs more prominent R - improving SUperficial ulcerations and excoriations scattered all over her body CARDIOVASCULAR: Regular rate and rhythm without murmurs, gallops, or rubs. No JVD. Peripheral pulses symmetric. Pt has PORT in L chest with palpable cor, no erythema, no edema or fluctuance RESPIRATORY/CHEST: Symmetric, unlabored respirations. Clear to auscultation. Breath sounds equal bilaterally. No wheezes, rales, or rhonchi. GASTROINTESTINAL: Abdomen soft, non-tender, nondistended. No hepato-splenomegaly , or palpable masses. No guarding. Bowel sounds present. GENITOURINARY: Without palpable bladder distension. Duke catheter in place. MUSCULOSKELETAL: Extremities without clubbing, cyanosis, + 2 edema. No mottling or clubbing. NEUROLOGICAL: Awake and alert. Aphasic Follows commands intermittently . Moves all extremities. Assessment & Plan Remarks Sepsis - resolved Neglect Unstagible decub with eschars R post thigh cellulitis Multiple excoriations with some superficial infection vs port of entry for sepsis Plastics recommended no surgery or debridement at this time but conservative measures to include Low flow mattress, Wound care nurse for recommendations of dressings, need moisture control and bacteriostatic, Maxorb; Rotation every 3 hours and optimisation of nutritional parameters and to consider colostomy. Diarrhea, abx associated Elevated LFTs - HCV+ - change Unasyn to cefazoline - chk stool for C.diff - monitor WBC - empiric antiscabies tx Lanette Adames MD Jun 11, 2016 15:11
[2016-06-11] MEDS ORDERED: PERMETHRIN 5% CREAM 60 GM TOPICAL ONE (15:15)
[2016-06-11] MEDS: LISINOPRIL 5 MG TAB PO SCH (15:20)
[2016-06-11] MEDS: ceFAZolin 2 GM PREMIX 50 ML IV SCH ×2 (16:54→23:49)
[2016-06-11] MEDS: FLUCONAZOLE 100 MG TAB PO SCH (20:52)
[2016-06-12] MEDS: diphenhydrAMINE HCL 25 MG CAP PO PRN (01:42)
[2016-06-12] MEDS: CHLORHEXIDINE GLUCONATE 2 % 1 PACK (2 CLOTHS) TOP SCH (04:00)
[2016-06-12 04:42] VITALS: BP 131/76; PULSE 73; RESP 18; TEMP 96.6; O2SAT 95
[2016-06-12] MEDS: HEPARIN SODIUM - SQ 10,000 UNITS/ML VIAL SQ SCH ×2 (05:29→16:39)
[2016-06-12] MEDS: POTASSIUM PHOSPHATE/SODIUM PHOSPHATE 250 MG TAB PO SCH ×3 (05:29→16:35)
[2016-06-12 08:00] VITALS: BP 155/80; PULSE 87; RESP 20; TEMP 97.9; O2SAT 97
[2016-06-12] MEDS: LISINOPRIL 5 MG TAB PO SCH (08:46)
[2016-06-12] MEDS: ceFAZolin 2 GM PREMIX 50 ML IV SCH ×2 (08:46→16:35)
[2016-06-12] MEDS: PANTOPRAZOLE SOD 40 MG DELAYED RELEASE TAB PO SCH (08:46)
[2016-06-12] MEDS: SODIUM CHLORIDE 0.9% FLUSH 5 ML FLUSH IV FLUSH SCH ×2 (08:47→21:00)
[2016-06-12] MEDS: METOPROLOL TARTRATE 100 MG TAB PO SCH ×2 (08:47→21:38)
[2016-06-12] MEDS: DILTIAZEM HCL 60 MG TAB PO SCH ×4 (08:47→21:38)
[2016-06-12 12:00] VITALS: BP 132/68; PULSE 70; RESP 20; TEMP 97.4; O2SAT 96
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
[2016-06-12 16:00] VITALS: BP 118/60; PULSE 80; RESP 22; TEMP 97.9; O2SAT 96
[2016-06-12 17:15] LABS: C. DIFF EPI 027 PRESUMPTIVE NEGATIVE (NEGATIVE); C. DIFF TOXIN PCR NEGATIVE (NEGATIVE)
[2016-06-12 20:30] VITALS: BP 174/79; PULSE 86; RESP 20; TEMP 99.5; O2SAT 100
[2016-06-12] MEDS: FLUCONAZOLE 100 MG TAB PO SCH (21:38)
[2016-06-12 22:20] VITALS: BP 128/75; PULSE 79; RESP 20; TEMP 97.8; O2SAT 96
[2016-06-13] VITALS (7 sets, daily range): BP systolic 111–144; BP diastolic 53–76; PULSE 65–85; RESP 18–20; TEMP 96–97.3; O2SAT 93–100
[2016-06-13] MEDS: ceFAZolin 2 GM PREMIX 50 ML IV SCH ×3 (00:10→14:46)
[2016-06-13] MEDS: POTASSIUM PHOSPHATE/SODIUM PHOSPHATE 250 MG TAB PO SCH ×4 (00:10→17:52)
[2016-06-13] MEDS: diphenhydrAMINE HCL 25 MG CAP PO PRN ×2 (00:52→11:38)
[2016-06-13] MEDS: CHLORHEXIDINE GLUCONATE 2 % 1 PACK (2 CLOTHS) TOP SCH (04:00)
[2016-06-13] MEDS: HEPARIN SODIUM - SQ 10,000 UNITS/ML VIAL SQ SCH ×2 (06:28→17:52)
[2016-06-13] MEDS: PANTOPRAZOLE SOD 40 MG DELAYED RELEASE TAB PO SCH (08:37)
[2016-06-13] MEDS: METOPROLOL TARTRATE 100 MG TAB PO SCH ×2 (08:37→22:18)
[2016-06-13] MEDS: SODIUM CHLORIDE 0.9% FLUSH 5 ML FLUSH IV FLUSH SCH ×2 (08:37→22:20)
[2016-06-13] MEDS: DILTIAZEM HCL 60 MG TAB PO SCH ×4 (08:37→22:18)
[2016-06-13] MEDS: LISINOPRIL 5 MG TAB PO SCH (08:37)
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
[2016-06-13] MEDS: FLUCONAZOLE 100 MG TAB PO SCH (22:18)
--- NOTE | 2016-06-13 23:01 | HHI.IDPN ---
Subjective Subjective Remarks pt constantly itching; now has mittens pt is afebrile Antibiotics cefazoline Allergies: Coded Allergies: MRI PRECAUTION (Verified Adverse Reaction, Severe, ANEURYSM CLIP PER DR. 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 Objective . Vital Signs Date Time Temp Pulse Resp B/P Pulse Ox O2 Delivery O2 Flow Rate FiO2 06/13/16 20:43 97.3 79 18 116/67 97 06/13/16 16:00 96.4 75 20 123/69 98 06/13/16 12:00 96.6 65 20 111/53 100 06/13/16 08:10 Nasal Cannula 2.00 06/13/16 08:00 96.0 74 18 144/76 98 06/13/16 04:00 96.7 71 18 121/75 99 06/13/16 00:00 97.0 69 20 126/73 95 06/12/16 06/12/16 06/13/16 15:00 23:00 07:00 Intake Total 600 ml 240 ml 1050 ml Output Total 175 ml 300 ml Balance 425 ml -60 ml 1050 ml Intake Oral 600 ml 240 ml 1050 ml Output Urine Total 175 ml 300 ml Bladder Scan Volume Amount 15 ml # Bowel Movements 1 0 1 Imaging Last Impressions Chest X-Ray 06/01/16 0600 Signed Impressions: Service Date/Time: Wednesday, June 01, 2016 05:33 - CONCLUSION: Minimal patchy bilateral lower lung zone atelectasis. Rony Espinoza MD Lower Extremity Ultrasound 06/01/16 0000 Signed Impressions: Service Date/Time: Wednesday, June 01, 2016 02:44 - CONCLUSION: No evidence of lower extremity DVT on the right or left. Rony Espinoza MD Head CT 05/31/16 0000 Signed Impressions: Service Date/Time: Tuesday, May 31, 2016 11:51 - CONCLUSION: 1. 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 2. Negative for an acute process. Vinay Avalos MD FACR Physical Exam CONSTITUTIONAL/GENERAL: This is an adequately nourished patient, in no apparent distress. SKIN: No jaundice, Multiple excoriations and scattered pruritic open lesions and superficial wounds. Posterior bilateral thighs with resolved erythema + superficial abrasions. Erythema on post thighs more prominent R - near complete resolution SUperficial ulcerations and excoriations scattered all over her body CARDIOVASCULAR: Regular rate and rhythm without murmurs, gallops, or rubs. No JVD. Peripheral pulses symmetric. Pt has PORT in L chest with palpable cor, no erythema, no edema or fluctuance RESPIRATORY/CHEST: Symmetric, unlabored respirations. Clear to auscultation. Breath sounds equal bilaterally. No wheezes, rales, or rhonchi. GASTROINTESTINAL: Abdomen soft, non-tender, nondistended. No hepato-splenomegaly , or palpable masses. No guarding. Bowel sounds present. GENITOURINARY: Without palpable bladder distension. Duke catheter in place. MUSCULOSKELETAL: Extremities without clubbing, cyanosis, resolving edema. NEUROLOGICAL: Awake and alert. Aphasic Makes eye contat. Moves all extremities. Assessment & Plan Remarks Sepsis - resolved Neglect Unstagible decub with eschars R post thigh cellulitis - nearly resolved Multiple excoriations with some superficial infection vs port of entry for sepsis Plastics recommended no surgery or debridement at this time but conservative measures to include Low flow mattress, Wound care nurse for recommendations of dressings, need moisture control and bacteriostatic, Maxorb; Rotation every 3 hours and optimisation of nutritional parameters and to consider colostomy. Diarrhea, abx associated Elevated LFTs - HCV+ Itching - sp empitic elimite tx Abx associated diarrhea - stool negative for C.diff - cont cefazoline - may change to Keflex in 1-2 days to complete 10 days of total abxtx - chk stool for C.diff - monitor WBC - repeat empiric antiscabies tx i 2 weeks if still cont to itch. If no effect consider other diagnoses dw RN will follw as needed Lanette Adames MD Jun 13, 2016 23:01
[2016-06-14] MEDS: diphenhydrAMINE HCL 25 MG CAP PO PRN ×3 (00:09→18:19)
[2016-06-14] MEDS: ceFAZolin 2 GM PREMIX 50 ML IV SCH ×4 (00:09→23:31)
[2016-06-14] MEDS: POTASSIUM PHOSPHATE/SODIUM PHOSPHATE 250 MG TAB PO SCH ×5 (00:09→23:31)
[2016-06-14] MEDS: CHLORHEXIDINE GLUCONATE 2 % 1 PACK (2 CLOTHS) TOP SCH (04:00)
[2016-06-14 04:38] VITALS: BP 149/73; PULSE 77; RESP 18; TEMP 96.8; O2SAT 100
[2016-06-14] MEDS: HEPARIN SODIUM - SQ 10,000 UNITS/ML VIAL SQ SCH ×2 (06:53→17:09)
[2016-06-14 08:21] VITALS: BP 147/78; PULSE 84; RESP 20; TEMP 96.3; O2SAT 94
[2016-06-14] MEDS: PANTOPRAZOLE SOD 40 MG DELAYED RELEASE TAB PO SCH (09:00)
[2016-06-14] MEDS: DILTIAZEM HCL 60 MG TAB PO SCH ×4 (09:11→21:19)
[2016-06-14] MEDS: LISINOPRIL 5 MG TAB PO SCH (09:11)
[2016-06-14] MEDS: METOPROLOL TARTRATE 100 MG TAB PO SCH ×2 (09:11→21:19)
[2016-06-14] MEDS: SODIUM CHLORIDE 0.9% FLUSH 5 ML FLUSH IV FLUSH SCH ×2 (09:14→21:19)
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
[2016-06-14 12:44] VITALS: BP 108/64; PULSE 66; RESP 20; TEMP 96.8; O2SAT 95
[2016-06-14 16:21] VITALS: BP 130/79; PULSE 74; RESP 18; TEMP 97.8; O2SAT 94
[2016-06-14 20:00] VITALS: BP 127/61; PULSE 84; RESP 20; TEMP 98.4; O2SAT 95
[2016-06-14] MEDS: FLUCONAZOLE 100 MG TAB PO SCH (21:19)
[2016-06-14] MEDS: SODIUM CHLORIDE 0.9% FLUSH 5 ML FLUSH IV FLUSH PRN (23:31)
[2016-06-15] VITALS (7 sets, daily range): BP systolic 104–148; BP diastolic 60–77; PULSE 67–97; RESP 19–20; TEMP 96.8–98.5; O2SAT 91–100
[2016-06-15] MEDS: CHLORHEXIDINE GLUCONATE 2 % 1 PACK (2 CLOTHS) TOP SCH (04:00)
[2016-06-15] MEDS: SODIUM CHLORIDE 0.9% FLUSH 5 ML FLUSH IV FLUSH PRN (05:04)
[2016-06-15] MEDS: HEPARIN SODIUM - SQ 10,000 UNITS/ML VIAL SQ SCH ×2 (05:05→17:56)
[2016-06-15] MEDS: POTASSIUM PHOSPHATE/SODIUM PHOSPHATE 250 MG TAB PO SCH ×4 (05:05→23:12)
[2016-06-15 07:43] LABS: AUTOMATED NEUTROPHIL # 3.1 TH/MM3 (1.8-7.7); BASOPHIL % 0.6 % (0.0-2.0); EOSINOPHIL # 0.4 TH/MM3 (0-0.4); EOSINOPHIL % 7.2 % (0.0-4.0); HEMATOCRIT 28.7 % (35.0-46.0); LYMPH % 27.2 % (9.0-44.0); LYMPHOCYTE # 1.5 TH/MM3 (1.0-4.8); MEAN CELL VOLUME 77.1 FL (80.0-100.0); MEAN CORPUSCULAR HEMOGLOBIN 24.9 PG (27.0-34.0); MEAN CORPUSCULAR HGB CONC 32.3 % (32.0-36.0); MONO % 8.5 % (0.0-8.0); NEUT % 56.5 % (16.0-70.0); PLATELET COUNT 330 TH/MM3 (150-450); RED BLOOD COUNT 3.73 MIL/MM3 (4.00-5.30); RED CELL DISTRIBUTION WIDTH 16.6 % (11.6-17.2); WHITE BLOOD COUNT 5.5 TH/MM3 (4.0-11.0)
[2016-06-15 07:57] LABS: HEMO FLAGS AUTO DIFF
[2016-06-15] MEDS: DILTIAZEM HCL 60 MG TAB PO SCH ×4 (08:25→20:45)
[2016-06-15] MEDS: diphenhydrAMINE HCL 25 MG CAP PO PRN (08:25)
[2016-06-15] MEDS: LISINOPRIL 5 MG TAB PO SCH (08:25)
[2016-06-15] MEDS: ceFAZolin 2 GM PREMIX 50 ML IV SCH ×3 (08:25→23:13)
[2016-06-15] MEDS: PANTOPRAZOLE SOD 40 MG DELAYED RELEASE TAB PO SCH (08:25)
[2016-06-15] MEDS: SODIUM CHLORIDE 0.9% FLUSH 5 ML FLUSH IV FLUSH SCH ×2 (08:28→20:46)
[2016-06-15] MEDS: METOPROLOL TARTRATE 100 MG TAB PO SCH ×2 (08:28→20:45)
[2016-06-15 08:31] LABS: MAGNESIUM 1.9 MG/DL (1.5-2.5); POTASSIUM 3.3 MEQ/L (3.5-5.1)
[2016-06-15] MEDS ORDERED: POTASSIUM CHLORIDE 25 MEQ EFFERVESCENT TAB PO ONE (10:00)
[2016-06-15 10:34] LABS: SCAN/DIFF AUTO DIFF CONFIRMED
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
[2016-06-15] MEDS: hydrOXYzine PAMOATE 25 MG CAP PO SCH ×2 (11:30→23:12)
[2016-06-15] MEDS: FLUCONAZOLE 100 MG TAB PO SCH (20:45)
[2016-06-15] MEDS: FERROUS SULFATE 325 MG (65 MG ELEMENTAL IRON) TAB PO SCH (20:45)
[2016-06-16] VITALS (7 sets, daily range): BP systolic 109–155; BP diastolic 61–82; PULSE 67–89; RESP 18–22; TEMP 96.4–98.8; O2SAT 94–100
[2016-06-16] MEDS: CHLORHEXIDINE GLUCONATE 2 % 1 PACK (2 CLOTHS) TOP SCH (04:00)
[2016-06-16] MEDS: POTASSIUM PHOSPHATE/SODIUM PHOSPHATE 250 MG TAB PO SCH ×3 (05:58→17:43)
[2016-06-16] MEDS: HEPARIN SODIUM - SQ 10,000 UNITS/ML VIAL SQ SCH ×2 (05:58→17:43)
[2016-06-16] MEDS: ceFAZolin 2 GM PREMIX 50 ML IV SCH (09:37)
[2016-06-16] MEDS: METOPROLOL TARTRATE 100 MG TAB PO SCH ×2 (09:38→21:02)
[2016-06-16] MEDS: PANTOPRAZOLE SOD 40 MG DELAYED RELEASE TAB PO SCH (09:38)
[2016-06-16] MEDS: FERROUS SULFATE 325 MG (65 MG ELEMENTAL IRON) TAB PO SCH ×2 (09:38→21:02)
[2016-06-16] MEDS: SODIUM CHLORIDE 0.9% FLUSH 5 ML FLUSH IV FLUSH SCH ×2 (09:38→21:02)
[2016-06-16] MEDS: LISINOPRIL 5 MG TAB PO SCH (09:38)
[2016-06-16] MEDS: DILTIAZEM HCL 60 MG TAB PO SCH ×4 (09:38→21:02)
[2016-06-16] MEDS: CEPHALEXIN MONOHYDRATE 500 MG CAP PO SCH ×3 (09:41→21:02)
[2016-06-16] MEDS: hydrOXYzine PAMOATE 25 MG CAP PO SCH (11:52)
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
[2016-06-16] MEDS: FLUCONAZOLE 100 MG TAB PO SCH (21:02)
[2016-06-17] VITALS (8 sets, daily range): BP systolic 103–158; BP diastolic 56–70; PULSE 75–91; RESP 18–20; TEMP 96–98.4; O2SAT 90–100
[2016-06-17] MEDS: POTASSIUM PHOSPHATE/SODIUM PHOSPHATE 250 MG TAB PO SCH ×5 (00:15→23:47)
[2016-06-17] MEDS: hydrOXYzine PAMOATE 25 MG CAP PO SCH ×3 (00:15→23:47)
[2016-06-17] MEDS: CHLORHEXIDINE GLUCONATE 2 % 1 PACK (2 CLOTHS) TOP SCH (03:38)
[2016-06-17] MEDS: CEPHALEXIN MONOHYDRATE 500 MG CAP PO SCH (05:19)
[2016-06-17] MEDS: HEPARIN SODIUM - SQ 10,000 UNITS/ML VIAL SQ SCH ×2 (05:20→18:20)
[2016-06-17 07:41] LABS: AUTOMATED NEUTROPHIL # 3.2 TH/MM3 (1.8-7.7); BASOPHIL % 0.5 % (0.0-2.0); EOSINOPHIL # 0.4 TH/MM3 (0-0.4); EOSINOPHIL % 6.7 % (0.0-4.0); HEMATOCRIT 30.5 % (35.0-46.0); LYMPH % 27.8 % (9.0-44.0); LYMPHOCYTE # 1.6 TH/MM3 (1.0-4.8); MEAN CELL VOLUME 78.1 FL (80.0-100.0); MEAN CORPUSCULAR HEMOGLOBIN 24.8 PG (27.0-34.0); MEAN CORPUSCULAR HGB CONC 31.8 % (32.0-36.0); MONO % 8.8 % (0.0-8.0); NEUT % 56.2 % (16.0-70.0); PLATELET COUNT 332 TH/MM3 (150-450); RED BLOOD COUNT 3.91 MIL/MM3 (4.00-5.30); RED CELL DISTRIBUTION WIDTH 16.7 % (11.6-17.2); WHITE BLOOD COUNT 5.7 TH/MM3 (4.0-11.0)
[2016-06-17 07:50] LABS: BICARBONATE 32.3 MEQ/L (21.0-32.0); POTASSIUM 3.8 MEQ/L (3.5-5.1)
[2016-06-17 07:54] LABS: HEMO FLAGS AUTO DIFF
[2016-06-17 08:48] LABS: SCAN/DIFF AUTO DIFF CONFIRMED
[2016-06-17] MEDS: METOPROLOL TARTRATE 100 MG TAB PO SCH ×2 (09:10→20:26)
[2016-06-17] MEDS: LISINOPRIL 5 MG TAB PO SCH (09:10)
[2016-06-17] MEDS: PANTOPRAZOLE SOD 40 MG DELAYED RELEASE TAB PO SCH (09:10)
[2016-06-17] MEDS: FERROUS SULFATE 325 MG (65 MG ELEMENTAL IRON) TAB PO SCH ×2 (09:10→20:26)
[2016-06-17] MEDS: DILTIAZEM HCL 60 MG TAB PO SCH ×4 (09:10→20:26)
[2016-06-17] MEDS: SODIUM CHLORIDE 0.9% FLUSH 5 ML FLUSH IV FLUSH SCH ×2 (09:11→20:42)
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
[2016-06-17] MEDS ORDERED: SODIUM CHLOR 0.45% 1000 ML INJ 1,000 ML IV ONE (14:15)
[2016-06-17] MEDS: FLUCONAZOLE 100 MG TAB PO SCH (20:26)
[2016-06-18] VITALS (9 sets, daily range): BP systolic 95–131; BP diastolic 55–81; PULSE 63–105; RESP 16–20; TEMP 96.6–98; O2SAT 70–100
[2016-06-18] MEDS: CHLORHEXIDINE GLUCONATE 2 % 1 PACK (2 CLOTHS) TOP SCH (04:00)
[2016-06-18] MEDS: POTASSIUM PHOSPHATE/SODIUM PHOSPHATE 250 MG TAB PO SCH ×4 (05:09→22:57)
[2016-06-18] MEDS: HEPARIN SODIUM - SQ 10,000 UNITS/ML VIAL SQ SCH ×2 (05:09→17:34)
[2016-06-18] MEDS: hydrOXYzine PAMOATE 25 MG CAP PO SCH ×2 (09:50→22:53)
[2016-06-18] MEDS: PANTOPRAZOLE SOD 40 MG DELAYED RELEASE TAB PO SCH (09:50)
[2016-06-18] MEDS: DILTIAZEM HCL 60 MG TAB PO SCH ×5 (09:50→22:53)
[2016-06-18] MEDS: SODIUM CHLORIDE 0.9% FLUSH 5 ML FLUSH IV FLUSH SCH ×2 (09:51→22:53)
[2016-06-18] MEDS: LISINOPRIL 5 MG TAB PO SCH (09:51)
[2016-06-18] MEDS: FERROUS SULFATE 325 MG (65 MG ELEMENTAL IRON) TAB PO SCH ×2 (09:51→22:53)
[2016-06-18] MEDS: METOPROLOL TARTRATE 100 MG TAB PO SCH ×2 (09:51→22:53)
[2016-06-18 10:40] LABS: BICARBONATE 31.5 MEQ/L (21.0-32.0); POTASSIUM 3.5 MEQ/L (3.5-5.1)
[2016-06-18] MEDS ORDERED: SODIUM CHLOR 0.45% 1000 ML INJ 1,000 ML IV SCH (12:00)
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
[2016-06-18] MEDS: COLLAGENASE OINT 30 GM TUBE TOP SCH (14:13)
[2016-06-18] MEDS: FLUCONAZOLE 100 MG TAB PO SCH (22:53)
[2016-06-19] VITALS (7 sets, daily range): BP systolic 120–155; BP diastolic 71–100; PULSE 68–109; RESP 18–20; TEMP 96–98.5; O2SAT 90–100
[2016-06-19] MEDS: CHLORHEXIDINE GLUCONATE 2 % 1 PACK (2 CLOTHS) TOP SCH (03:19)
[2016-06-19] MEDS: POTASSIUM PHOSPHATE/SODIUM PHOSPHATE 250 MG TAB PO SCH ×4 (05:59→23:23)
[2016-06-19] MEDS: HEPARIN SODIUM - SQ 10,000 UNITS/ML VIAL SQ SCH ×2 (06:00→18:51)
[2016-06-19] MEDS: DILTIAZEM HCL 60 MG TAB PO SCH ×4 (09:00→23:19)
[2016-06-19] MEDS: SODIUM CHLORIDE 0.9% FLUSH 5 ML FLUSH IV FLUSH SCH ×2 (09:00→23:19)
[2016-06-19] MEDS: METOPROLOL TARTRATE 100 MG TAB PO SCH ×2 (09:00→23:19)
[2016-06-19] MEDS: COLLAGENASE OINT 30 GM TUBE TOP SCH (09:01)
[2016-06-19] MEDS: PANTOPRAZOLE SOD 40 MG DELAYED RELEASE TAB PO SCH (09:01)
[2016-06-19] MEDS: LISINOPRIL 5 MG TAB PO SCH (09:01)
[2016-06-19] MEDS: FERROUS SULFATE 325 MG (65 MG ELEMENTAL IRON) TAB PO SCH ×2 (09:01→23:19)
[2016-06-19] MEDS: hydrOXYzine PAMOATE 25 MG CAP PO SCH ×2 (12:36→23:23)
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
[2016-06-19] MEDS: FLUCONAZOLE 100 MG TAB PO SCH (23:19)
[2016-06-20] VITALS (7 sets, daily range): BP systolic 111–130; BP diastolic 60–84; PULSE 60–90; RESP 18–20; TEMP 95.5–98.8; O2SAT 92–98
[2016-06-20] MEDS: CHLORHEXIDINE GLUCONATE 2 % 1 PACK (2 CLOTHS) TOP SCH (04:00)
[2016-06-20] MEDS: POTASSIUM PHOSPHATE/SODIUM PHOSPHATE 250 MG TAB PO SCH ×4 (06:10→22:57)
[2016-06-20] MEDS: HEPARIN SODIUM - SQ 10,000 UNITS/ML VIAL SQ SCH ×2 (06:11→17:57)
[2016-06-20] MEDS: SODIUM CHLORIDE 0.9% FLUSH 5 ML FLUSH IV FLUSH SCH ×2 (09:00→22:54)
[2016-06-20] MEDS: FERROUS SULFATE 325 MG (65 MG ELEMENTAL IRON) TAB PO SCH ×2 (10:16→22:53)
[2016-06-20] MEDS: DILTIAZEM HCL 60 MG TAB PO SCH ×4 (10:16→22:54)
[2016-06-20] MEDS: LISINOPRIL 5 MG TAB PO SCH (10:16)
[2016-06-20] MEDS: METOPROLOL TARTRATE 100 MG TAB PO SCH ×2 (10:16→22:53)
[2016-06-20] MEDS: PANTOPRAZOLE SOD 40 MG DELAYED RELEASE TAB PO SCH (10:16)
[2016-06-20] MEDS: MULTIVITAMINS LIQUID 5 ML UDC PO SCH (10:17)
[2016-06-20] MEDS: COLLAGENASE OINT 30 GM TUBE TOP SCH (10:17)
[2016-06-20] MEDS: hydrOXYzine PAMOATE 25 MG CAP PO SCH ×2 (12:27→22:56)
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
--- NOTE | 2016-06-20 15:16 | PD.PLAS.PN ---
Subjective Remarks Awake. Objective Vital Signs Date Time Temp Pulse Resp B/P Pulse Ox O2 Delivery O2 Flow Rate FiO2 06/20/16 13:37 92 Nasal Cannula 21 06/20/16 12:00 95.5 65 20 119/66 96 06/20/16 08:00 96.6 76 20 125/84 92 06/20/16 05:14 98.0 86 18 125/70 97 06/20/16 00:29 98.1 90 18 130/72 98 06/19/16 20:00 Room Air 06/19/16 19:52 97.8 87 20 128/71 97 06/19/16 19:15 95 Nasal Cannula 2.00 06/19/16 16:00 96.0 74 18 122/71 90 I/O 06/19/16 06/19/16 06/19/16 06/20/16 06/20/16 06/20/16 07:00 15:00 23:00 07:00 15:00 23:00 Intake Total 180 ml Output Total 200 ml 300 ml Balance -200 ml -120 ml Intake Oral 180 ml Output Urine Total 200 ml 300 ml # Bowel Movements 0 0 Result Diagram: 06/17/16 0638 06/18/16 0825 Exam Findings Seen with nurse. Posterior trunk: Un-stageable sacral ulcer. Dry, no drainage, no sign of infection. Moist, no stool. Posterior thigh: Bilateral upper thigh area of superficial abrasion and erythema, no drainage. Rash, macular. Assessment and Plan Assessment and Plan Multiple medical problems, admitted for Sepsis. Posterior trunk early stage ulcer, and surround moisture. Posterior bilateral thighs with erythema, superficial abrasions. Recommend: No surgery or debridement at this time Low flow mattress, which is absolutely essential in these patients. Wound care nurse for recommendations of dressings, need moisture control and bacteriostatic, Maxorb. Rotation every 3 hours Check nutritional parameters If no mental improvement, consider colostomy. Steven Silva MD Jun 20, 2016 15:16
[2016-06-20] MEDS: FLUCONAZOLE 100 MG TAB PO SCH (22:53)
[2016-06-21] VITALS: BP 112/72; PULSE 62; RESP 18; TEMP 97.9; O2SAT 98
[2016-06-21] MEDS: CHLORHEXIDINE GLUCONATE 2 % 1 PACK (2 CLOTHS) TOP SCH (04:00)
[2016-06-21] MEDS: HEPARIN SODIUM - SQ 10,000 UNITS/ML VIAL SQ SCH ×2 (06:11→17:34)
[2016-06-21] MEDS: POTASSIUM PHOSPHATE/SODIUM PHOSPHATE 250 MG TAB PO SCH ×4 (06:11→23:11)
[2016-06-21 08:00] VITALS: BP 131/84; PULSE 73; RESP 22; TEMP 97.3; O2SAT 98
[2016-06-21] MEDS: MULTIVITAMINS LIQUID 5 ML UDC PO SCH (08:52)
[2016-06-21] MEDS: FERROUS SULFATE 325 MG (65 MG ELEMENTAL IRON) TAB PO SCH ×2 (08:53→23:11)
[2016-06-21] MEDS: PANTOPRAZOLE SOD 40 MG DELAYED RELEASE TAB PO SCH (08:53)
[2016-06-21] MEDS: METOPROLOL TARTRATE 100 MG TAB PO SCH ×2 (08:53→23:11)
[2016-06-21] MEDS: LISINOPRIL 5 MG TAB PO SCH (08:53)
[2016-06-21] MEDS: COLLAGENASE OINT 30 GM TUBE TOP SCH (08:53)
[2016-06-21] MEDS: SODIUM CHLORIDE 0.9% FLUSH 5 ML FLUSH IV FLUSH SCH ×2 (08:53→23:12)
[2016-06-21] MEDS: DILTIAZEM HCL 60 MG TAB PO SCH ×4 (08:53→23:11)
[2016-06-21 09:07] LABS: AUTOMATED NEUTROPHIL # 2.3 TH/MM3 (1.8-7.7); BASOPHIL % 0.8 % (0.0-2.0); EOSINOPHIL # 0.5 TH/MM3 (0-0.4); EOSINOPHIL % 10.6 % (0.0-4.0); HEMATOCRIT 31.5 % (35.0-46.0); HEMO FLAGS DIFF FINAL; LYMPHOCYTE # 1.6 TH/MM3 (1.0-4.8); MEAN CELL VOLUME 79.5 FL (80.0-100.0); MEAN CORPUSCULAR HEMOGLOBIN 26.5 PG (27.0-34.0); MEAN CORPUSCULAR HGB CONC 33.4 % (32.0-36.0); MONO % 7.5 % (0.0-8.0); NEUT % 47.1 % (16.0-70.0); PLATELET COUNT 312 TH/MM3 (150-450); RED BLOOD COUNT 3.97 MIL/MM3 (4.00-5.30); RED CELL DISTRIBUTION WIDTH 19.4 % (11.6-17.2); WHITE BLOOD COUNT 4.8 TH/MM3 (4.0-11.0)
[2016-06-21 09:25] LABS: BICARBONATE 30.4 MEQ/L (21.0-32.0); POTASSIUM 3.3 MEQ/L (3.5-5.1)
[2016-06-21 12:00] VITALS: BP 125/71; PULSE 88; RESP 20; TEMP 98.8; O2SAT 99
[2016-06-21] MEDS: hydrOXYzine PAMOATE 25 MG CAP PO SCH ×2 (12:06→17:34)
[2016-06-21 16:00] VITALS: BP 150/97; PULSE 103; RESP 22; TEMP 98.9; O2SAT 97
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
[2016-06-21 21:19] VITALS: BP 124/68; PULSE 91; RESP 22; TEMP 96; O2SAT 96
[2016-06-21 23:00] VITALS: BP 126/67; PULSE 91; RESP 20; TEMP 96.5; O2SAT 97
[2016-06-22] MEDS ORDERED: diphenhydrAMINE HCL 50 MG/ML VIAL IV PUSH ONE (02:00)
[2016-06-22] MEDS: CHLORHEXIDINE GLUCONATE 2 % 1 PACK (2 CLOTHS) TOP SCH (04:00)
[2016-06-22] MEDS: HEPARIN SODIUM - SQ 10,000 UNITS/ML VIAL SQ SCH ×2 (06:13→17:23)
[2016-06-22] MEDS: POTASSIUM PHOSPHATE/SODIUM PHOSPHATE 250 MG TAB PO SCH ×3 (06:13→17:24)
[2016-06-22 06:29] VITALS: BP 156/89; PULSE 65; RESP 18; TEMP 95.6; O2SAT 96
[2016-06-22 08:00] VITALS: BP 138/82; PULSE 70; RESP 18; TEMP 95.3; O2SAT 100
[2016-06-22] MEDS: MULTIVITAMINS LIQUID 5 ML UDC PO SCH (09:01)
[2016-06-22] MEDS: METOPROLOL TARTRATE 100 MG TAB PO SCH ×2 (09:01→22:34)
[2016-06-22] MEDS: LISINOPRIL 5 MG TAB PO SCH (09:01)
[2016-06-22] MEDS: SODIUM CHLORIDE 0.9% FLUSH 5 ML FLUSH IV FLUSH SCH ×2 (09:01→22:34)
[2016-06-22] MEDS: PANTOPRAZOLE SOD 40 MG DELAYED RELEASE TAB PO SCH (09:01)
[2016-06-22] MEDS: FERROUS SULFATE 325 MG (65 MG ELEMENTAL IRON) TAB PO SCH ×2 (09:01→22:34)
[2016-06-22] MEDS: DILTIAZEM HCL 60 MG TAB PO SCH ×4 (09:01→22:34)
[2016-06-22] MEDS: hydrOXYzine PAMOATE 25 MG CAP PO SCH ×3 (09:01→17:24)
[2016-06-22] MEDS: COLLAGENASE OINT 30 GM TUBE TOP SCH (09:02)
[2016-06-22] MEDS ORDERED: METO100T PO (09:30)
[2016-06-22] MEDS ORDERED: VENTAER INH (09:30)
[2016-06-22 12:00] VITALS: BP 110/62; PULSE 60; RESP 18; TEMP 97.2; O2SAT 100
[2016-06-22 12:07] VITALS: O2SAT 99
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
[2016-06-22 20:00] VITALS: BP 138/64; PULSE 83; RESP 20; TEMP 96.2; O2SAT 93
[2016-06-22 21:49] VITALS: O2SAT 96
[2016-06-23] VITALS: BP 129/58; PULSE 64; RESP 18; TEMP 96.3; O2SAT 92
[2016-06-23] MEDS: POTASSIUM PHOSPHATE/SODIUM PHOSPHATE 250 MG TAB PO SCH ×5 (00:58→23:29)
[2016-06-23 04:00] VITALS: BP 147/85; PULSE 66; RESP 18; TEMP 96.8; O2SAT 93
[2016-06-23] MEDS: CHLORHEXIDINE GLUCONATE 2 % 1 PACK (2 CLOTHS) TOP SCH (04:00)
[2016-06-23] MEDS: HEPARIN SODIUM - SQ 10,000 UNITS/ML VIAL SQ SCH ×2 (06:02→17:18)
--- NOTE | 2016-06-23 07:13 | MB ---
cc: ANGELIQUE COOPER M.D. DATE OF CONSULTATION 06/22/2016 REASON FOR CONSULTATION Diverting colostomy to be considered. HISTORY OF PRESENT ILLNESS The patient is a 60-year-old female who presented on May 31 with altered mental status and slurry speech as well as weakness on the left side. The patient has had a slow course after presenting with sepsis and has been noted to have a sacral ulcer. She has been seen by Plastic Surgery and they have recommended Wound Care for dressings and moisture control and bacteriostatic with rotation every three hours. We have been asked to see the patient in consideration for diverting colostomy. PAST MEDICAL HISTORY Difficult to obtain from the patient as she is unable to provide good history. Previous history from previous medical records includes - 1. Hypertension. 2. Hypercholesterolemia. 3. Autoimmune disease. 4. Arthritis. 5. Asthma. 6. CVA in 2007. 7. Hepatitis C. 8. Left subclavian Pvryhv-P-Skca. PAST SURGICAL HISTORY 1. Abdominal surgery with two C-sections in the past. 2. Neurologic surgery for aneurysms. 3. Oral surgery in the past. SOCIAL HISTORY She does not use alcohol. Prior to admission she smoked one-pack per day. MRI PRECAUTION due to her aneurysm clipping. MEDICATIONS ON ADMISSION 1. Ventolin inhaler. 2. Metoprolol 100 mg p.o. b.i.d. CURRENT MEDS include - 1. Vistaril 25 mg p.o. t.i.d. 2. Multivitamins. 3. Ferrous sulfate. 4. Lisinopril 5 mg p.o. daily. 5. Metoprolol 100 mg b.i.d. 6. Protonix 40 mg p.o. daily 7. Cyndee-Colace b.i.d. 8. Cardizem 60 mg p.o. q.i.d. 9. Heparin 5000 units subcu q.12 hours. 10. Albuterol nebulizers q. 2 p.r.n. 11. Zofran p.r.n. 12. Chlorhexidine mouth wash. PHYSICAL EXAMINATION GENERAL: Physical exam reveals a female lying quietly in bed. She does respond to commands but has some slurred speech and is not able to verbally communicate well. VITALS: BP 110/62, pulse 60, respirations 18, temperature 97.2, 100% saturation on 2 liters nasal cannula. CHEST: Clear to auscultation. CARDIAC: Exam reveals regular rate and rhythm. ABDOMEN: Soft with a well-healed infraumbilical midline scar. There are multiple excoriations on the skin on the lower abdomen. The patient does have a decubitus ulcer that I cannot stage as there is stool present. The patient has Multi-Podus boots on. She does have some weakness on the left with slurred speech but she is able to follow some commands. LABORATORY VALUES WBCs are 4.8, platelet count 312,000. Chemistries - BUN and creatinine 12 and 0.8, potassium is low at 3.3. Sodium 145. RADIOLOGIC STUDIES Lower extremity ultrasound on 06/01 demonstrated no evidence of DVT at the time. Head CT on 05/31 was negative for an acute process. ASSESSMENT Decubitus ulcer in a patient who likely has had CVA. The patient would not be able to manage her colostomy. Would make arrangements for placement and make sure that she would be able to have care for the colostomy and that she does not pull it off as she has been scratching at it and pulling IV lines almost continuously. We will check with Wound Care to get their opinion to see whether they feel she can heal or whether colostomy would be the best option for her. Thank you for asking us to see this individual. We will follow with you and get input from Wound Care before proceeding. MD WALT Linares/CHRISTINE /7:48 PM /7:02 AM DAMI
[2016-06-23 08:00] VITALS: BP 149/81; PULSE 71; RESP 20; TEMP 96.8; O2SAT 100
[2016-06-23] MEDS: COLLAGENASE OINT 30 GM TUBE TOP SCH (09:00)
[2016-06-23] MEDS: SODIUM CHLORIDE 0.9% FLUSH 5 ML FLUSH IV FLUSH SCH ×2 (09:00→20:52)
[2016-06-23] MEDS: FERROUS SULFATE 325 MG (65 MG ELEMENTAL IRON) TAB PO SCH ×2 (09:10→20:52)
[2016-06-23] MEDS: PANTOPRAZOLE SOD 40 MG DELAYED RELEASE TAB PO SCH (09:10)
[2016-06-23] MEDS: hydrOXYzine PAMOATE 25 MG CAP PO SCH ×3 (09:10→17:18)
[2016-06-23] MEDS: DILTIAZEM HCL 60 MG TAB PO SCH ×4 (09:10→20:52)
[2016-06-23] MEDS: METOPROLOL TARTRATE 100 MG TAB PO SCH ×2 (09:10→20:52)
[2016-06-23] MEDS: LISINOPRIL 5 MG TAB PO SCH (09:10)
[2016-06-23] MEDS: MULTIVITAMINS LIQUID 5 ML UDC PO SCH (09:10)
[2016-06-23 12:00] VITALS: BP 142/73; PULSE 66; RESP 18; TEMP 96.7; O2SAT 99
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
[2016-06-23 16:00] VITALS: BP 139/74; PULSE 71; RESP 20; TEMP 96.6; O2SAT 100
[2016-06-23 20:00] VITALS: BP 138/75; PULSE 79; RESP 18; TEMP 97; O2SAT 93
[2016-06-24] VITALS (7 sets, daily range): BP systolic 122–160; BP diastolic 65–86; PULSE 60–84; RESP 16–18; TEMP 96.4–98.5; O2SAT 93–100
[2016-06-24] MEDS: CHLORHEXIDINE GLUCONATE 2 % 1 PACK (2 CLOTHS) TOP SCH (02:26)
[2016-06-24] MEDS: HEPARIN SODIUM - SQ 10,000 UNITS/ML VIAL SQ SCH ×2 (05:04→18:24)
[2016-06-24] MEDS: POTASSIUM PHOSPHATE/SODIUM PHOSPHATE 250 MG TAB PO SCH ×4 (05:04→23:35)
[2016-06-24] MEDS: SODIUM CHLORIDE 0.9% FLUSH 5 ML FLUSH IV FLUSH SCH ×2 (09:00→21:20)
[2016-06-24] MEDS: COLLAGENASE OINT 30 GM TUBE TOP SCH (09:00)
[2016-06-24] MEDS: DILTIAZEM HCL 60 MG TAB PO SCH ×4 (09:09→21:19)
[2016-06-24] MEDS: MULTIVITAMINS LIQUID 5 ML UDC PO SCH (09:09)
[2016-06-24] MEDS: METOPROLOL TARTRATE 100 MG TAB PO SCH ×2 (09:09→21:19)
[2016-06-24] MEDS: LISINOPRIL 5 MG TAB PO SCH (09:09)
[2016-06-24] MEDS: PANTOPRAZOLE SOD 40 MG DELAYED RELEASE TAB PO SCH (09:09)
[2016-06-24] MEDS: hydrOXYzine PAMOATE 25 MG CAP PO SCH ×3 (09:09→18:24)
[2016-06-24] MEDS: FERROUS SULFATE 325 MG (65 MG ELEMENTAL IRON) TAB PO SCH ×2 (09:09→21:19)
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
[2016-06-25] VITALS (8 sets, daily range): BP systolic 119–156; BP diastolic 65–97; PULSE 54–97; RESP 16–20; TEMP 96.3–99.1; O2SAT 95–100
[2016-06-25] MEDS: CHLORHEXIDINE GLUCONATE 2 % 1 PACK (2 CLOTHS) TOP SCH (04:00)
[2016-06-25] MEDS: POTASSIUM PHOSPHATE/SODIUM PHOSPHATE 250 MG TAB PO SCH ×4 (05:53→23:04)
[2016-06-25] MEDS: HEPARIN SODIUM - SQ 10,000 UNITS/ML VIAL SQ SCH ×2 (05:55→17:44)
[2016-06-25] MEDS: COLLAGENASE OINT 30 GM TUBE TOP SCH (09:00)
[2016-06-25] MEDS: SODIUM CHLORIDE 0.9% FLUSH 5 ML FLUSH IV FLUSH SCH ×2 (09:00→23:01)
[2016-06-25] MEDS: hydrOXYzine PAMOATE 25 MG CAP PO SCH ×3 (10:53→17:44)
[2016-06-25] MEDS: MULTIVITAMINS LIQUID 5 ML UDC PO SCH (10:53)
[2016-06-25] MEDS: LISINOPRIL 5 MG TAB PO SCH (10:53)
[2016-06-25] MEDS: PANTOPRAZOLE SOD 40 MG DELAYED RELEASE TAB PO SCH (10:53)
[2016-06-25] MEDS: FERROUS SULFATE 325 MG (65 MG ELEMENTAL IRON) TAB PO SCH ×2 (10:53→23:01)
[2016-06-25] MEDS: METOPROLOL TARTRATE 100 MG TAB PO SCH ×2 (10:53→23:00)
[2016-06-25] MEDS: DILTIAZEM HCL 60 MG TAB PO SCH ×4 (10:53→23:00)
--- NOTE | 2016-06-25 14:12 | HHI.PR ---
Subjective Subjective Notes Resting in bed; non verbal Objective Vitals/I&O Vital Signs Date Time Temp Pulse Resp B/P Pulse Ox O2 Delivery O2 Flow Rate FiO2 06/25/16 12:00 96.3 97 20 132/73 100 06/24/16 20:00 Nasal Cannula 2.00 06/22/16 09:19 21 Cardiovascular: Regular Lungs: Clear Abdomen: Non-distended, Non-tender, Other (prior PEG tube site healed ) Extremities: No edema A/P Assessment and Plan 60 year old female with large sacral wound; with multiple medical problems -I spoke with Wound Care team---they do not feel that a diverting colostomy would benefit patient at this time -If anything changes they will inform myself -GS will sign off Attending Note Excoriations on Left lateral thigh As above Will see as needed. The exam, history, and the medical decision-making described in the above note were completed with the assistance of the mid-level provider. I reviewed and agree with the findings presented. I attest that I had a [id number] encounter with the patient on the same day, and personally performed and documented my assessment and findings in the medical record. Ruma Orta Jun 25, 2016 14:12 Zechariah Faulkner MD Jul 05, 2016 13:06
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
[2016-06-26] VITALS (8 sets, daily range): BP systolic 139–179; BP diastolic 63–95; PULSE 66–87; RESP 16–20; TEMP 96.1–97.5; O2SAT 93–98
[2016-06-26] MEDS: CHLORHEXIDINE GLUCONATE 2 % 1 PACK (2 CLOTHS) TOP SCH (04:00)
[2016-06-26] MEDS: POTASSIUM PHOSPHATE/SODIUM PHOSPHATE 250 MG TAB PO SCH ×3 (05:37→18:02)
[2016-06-26] MEDS: HEPARIN SODIUM - SQ 10,000 UNITS/ML VIAL SQ SCH ×2 (05:37→18:03)
[2016-06-26] MEDS: LISINOPRIL 5 MG TAB PO SCH (11:44)
[2016-06-26] MEDS: MULTIVITAMINS LIQUID 5 ML UDC PO SCH (11:44)
[2016-06-26] MEDS: FERROUS SULFATE 325 MG (65 MG ELEMENTAL IRON) TAB PO SCH ×2 (11:44→21:43)
[2016-06-26] MEDS: hydrOXYzine PAMOATE 25 MG CAP PO SCH ×3 (11:44→18:02)
[2016-06-26] MEDS: METOPROLOL TARTRATE 100 MG TAB PO SCH ×2 (11:44→21:43)
[2016-06-26] MEDS: SODIUM CHLORIDE 0.9% FLUSH 5 ML FLUSH IV FLUSH SCH ×2 (11:44→21:43)
[2016-06-26] MEDS: DILTIAZEM HCL 60 MG TAB PO SCH ×4 (11:44→21:43)
[2016-06-26] MEDS: PANTOPRAZOLE SOD 40 MG DELAYED RELEASE TAB PO SCH (11:44)
[2016-06-26] MEDS: COLLAGENASE OINT 30 GM TUBE TOP SCH (11:45)
[2016-06-26] MEDS: ENALAPRILAT 1.25 MG/ML VIAL IV PRN (15:54)
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
[2016-06-26] MEDS: LISINOPRIL 10 MG TAB PO SCH (21:43)
[2016-06-27] VITALS (7 sets, daily range): BP systolic 109–151; BP diastolic 56–99; PULSE 67–84; RESP 16–20; TEMP 96.6–98.3; O2SAT 92–99
[2016-06-27] MEDS: POTASSIUM PHOSPHATE/SODIUM PHOSPHATE 250 MG TAB PO SCH ×4 (00:30→18:39)
[2016-06-27] MEDS: CHLORHEXIDINE GLUCONATE 2 % 1 PACK (2 CLOTHS) TOP SCH (04:00)
[2016-06-27] MEDS: HEPARIN SODIUM - SQ 10,000 UNITS/ML VIAL SQ SCH ×2 (06:49→18:39)
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
[2016-06-27] MEDS: LISINOPRIL 10 MG TAB PO SCH ×2 (11:14→21:18)
[2016-06-27] MEDS: FERROUS SULFATE 325 MG (65 MG ELEMENTAL IRON) TAB PO SCH ×2 (11:14→21:18)
[2016-06-27] MEDS: SODIUM CHLORIDE 0.9% FLUSH 5 ML FLUSH IV FLUSH SCH ×2 (11:14→21:19)
[2016-06-27] MEDS: DILTIAZEM HCL 60 MG TAB PO SCH ×4 (11:14→21:18)
[2016-06-27] MEDS: METOPROLOL TARTRATE 100 MG TAB PO SCH ×2 (11:14→21:18)
[2016-06-27] MEDS: hydrOXYzine PAMOATE 25 MG CAP PO SCH ×3 (11:14→18:39)
[2016-06-27] MEDS: COLLAGENASE OINT 30 GM TUBE TOP SCH (11:14)
[2016-06-27] MEDS: PANTOPRAZOLE SOD 40 MG DELAYED RELEASE TAB PO SCH (11:14)
[2016-06-27] MEDS: MULTIVITAMINS LIQUID 5 ML UDC PO SCH (11:14)
[2016-06-28] VITALS: BP 92/57; PULSE 60; RESP 20; TEMP 98.1; O2SAT 96
[2016-06-28] MEDS: POTASSIUM PHOSPHATE/SODIUM PHOSPHATE 250 MG TAB PO SCH ×4 (00:44→18:17)
[2016-06-28 04:00] VITALS: BP 132/73; PULSE 67; RESP 20; TEMP 96.5; O2SAT 98
[2016-06-28] MEDS: CHLORHEXIDINE GLUCONATE 2 % 1 PACK (2 CLOTHS) TOP SCH (04:00)
[2016-06-28] MEDS: HEPARIN SODIUM - SQ 10,000 UNITS/ML VIAL SQ SCH ×2 (06:05→18:18)
--- NOTE | 2016-06-28 07:39 | MB ---
cc: CALOS DUMONT MD, VIJAY DATE OF CONSULTATION: 06/27/2016 REASON FOR CONSULTATION: The consult requested by the medical service. The patient known to Dr. Dumont for the past three weeks. For reevaluation and application of wound vac approval. HISTORY This is a 60-year-old white female who has been admitted to the [facility] as of May 31, 2016, she apparently came in with infection, altered mental status, possible stroke and has been bedridden and has gone through a period of sepsis noted to have a new sacral ulcer that has been addressed by Dr. Dumont previously. The wound care dressings have been done for the last couple of weeks, now a wound vac was recommended through the wound care nurse who does the daily attendance to the patient and a wound vac has been recently placed today. The patient also the wound vac has been placed on the sacrum today. The patient also has a superficial ulceration of both thighs which are being dressed with appropriate wound care as well. She has been placed in restraints and booties covering her heels. The patient is not able to communicate appropriately. No other informant is available. PAST MEDICAL HISTORY: 1. The medical history is reviewed from the chart includes high blood pressure 2. high cholesterol 3. Some type of autoimmune disease 4. History of hepatitis C 5. History of arthritis 6. Asthna. 7. History of previous cerebrovascular accident in 2007 with the possibility of a new CVA as well. 8. She is reporting the left subclavian as per the records. PAST SURGICAL HISTORY 1. Listed include; abdominal surgeries for . 2. Cerebral aneurysm clipping done in the past 3. SOCIAL HISTORY: The social history is negative for any alcohol or drug abuse. She does seem to have access to smoking cigarettes one pack a day. ALLERGIES None to medication. She does have MRI precaution due to aneurysm and also history of multiple drug resistant organisms, precautions. MEDICATIONS 1. current medications listed include; Ventolin inhaler. 2. Metoprolol 3. Restoril 4. Lisinopril 5. Protonix. 6. Cardizem. 7. Heparin. 8. Albuterol. 9. Zofran. Vitamins and supplements. PHYSICAL EXAMINATION: IN GENERAL: The Examination shows a 60-year-old white female in the surgical bed. She is somewhat asleep responds minimally to touch and that does not respond to our verbal communication. She has monitoring lines in place, IVs and a wound vac present on the sacrum. This was not disturbed. Dry dressings are also clean the information was reviewed of the last wound care notes. The rest of the examination is as per the admission records. She is not tachycardiac and does not seem to have any respiratory distress. The wound care examination reviewed from the chart includes sacrum showing a pink base with mostly clean wound and approximately 20% necrotic borders as mentioned in the record. The patient does not seem to have any obvious drainage smell or active infection in the area. The superficial wounds on the thigh were also noted. Since the wound vac has already been applied sometime today. The patient and continue on the wound vac regimen other than the previous daily dressings also the recommendation by Dr. Faulkner was noted. He has evaluated the patient for a diverting colostomy however, in presence of the lack of proper colostomy bag management it may not be a immediately advisable surgery. As far as the sacral wound is concerned a wound vac trial for 2-3 weeks seems to be in order as long as it can be maintained well and the patient does not have any significant diarrhea or any type of stool contamination compounding the problem. If the granulation seems to be stable and improving with her nutritional status. The patient may not immediately need a diverting colostomy. I am available to answer any questions as Dr. Dumont is going to be approximately one week out of town. When he gets back in town, he will be resuming the care over. signed, not fully reviewed MD ODILIA Boothe/jean claude /6:02 PM /7:26 AM DAMI
[2016-06-28 07:53] LABS: BICARBONATE 32.4 MEQ/L (21.0-32.0); MAGNESIUM 2.4 MG/DL (1.5-2.5)
[2016-06-28 08:00] VITALS: BP 102/58; PULSE 78; RESP 18; TEMP 97.8; O2SAT 96
[2016-06-28] MEDS: COLLAGENASE OINT 30 GM TUBE TOP SCH (09:00)
[2016-06-28] MEDS: hydrOXYzine PAMOATE 25 MG CAP PO SCH ×3 (10:08→18:17)
[2016-06-28] MEDS: LISINOPRIL 10 MG TAB PO SCH ×2 (10:08→21:28)
[2016-06-28] MEDS: MULTIVITAMINS LIQUID 5 ML UDC PO SCH (10:08)
[2016-06-28] MEDS: METOPROLOL TARTRATE 100 MG TAB PO SCH ×2 (10:08→21:28)
[2016-06-28] MEDS: PANTOPRAZOLE SOD 40 MG DELAYED RELEASE TAB PO SCH (10:09)
[2016-06-28] MEDS: DILTIAZEM HCL 60 MG TAB PO SCH ×4 (10:09→21:28)
[2016-06-28] MEDS: SODIUM CHLORIDE 0.9% FLUSH 5 ML FLUSH IV FLUSH SCH ×2 (10:09→21:29)
[2016-06-28] MEDS: FERROUS SULFATE 325 MG (65 MG ELEMENTAL IRON) TAB PO SCH ×2 (10:09→21:28)
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
[2016-06-28] MEDS ORDERED: POTASSIUM CHLORIDE INJ 40 MEQ in SODIUM CHLOR 0.45% 1000 ML INJ 1,000 ML IV SCH (11:00)
[2016-06-28] MEDS ORDERED: POTASSIUM CHLORIDE 20 MEQ CONTROLLED RELEASE TAB PO ONE (12:00)
[2016-06-28 12:16] LABS: BICARBONATE 30.1 MEQ/L (21.0-32.0)
[2016-06-28 12:21] LABS: POTASSIUM 4.4 MEQ/L (3.5-5.1)
[2016-06-28 12:37] VITALS: BP 130/72; PULSE 89; RESP 20; TEMP 97.6; O2SAT 100
[2016-06-28 15:56] LABS: BICARBONATE 30.8 MEQ/L (21.0-32.0)
[2016-06-28 16:00] LABS: POTASSIUM 3.9 MEQ/L (3.5-5.1)
[2016-06-28 18:11] VITALS: BP 122/69; PULSE 80; RESP 18; TEMP 98.4; O2SAT 96
[2016-06-28 19:57] LABS: BICARBONATE 30.6 MEQ/L (21.0-32.0); POTASSIUM 3.7 MEQ/L (3.5-5.1)
[2016-06-28 20:00] VITALS: BP 152/81; PULSE 96; RESP 18; TEMP 96.2; O2SAT 96
[2016-06-28 23:24] LABS: BICARBONATE 31.5 MEQ/L (21.0-32.0); MAGNESIUM 2.3 MG/DL (1.5-2.5); POTASSIUM 3.3 MEQ/L (3.5-5.1)
[2016-06-29] VITALS: BP 121/82; PULSE 73; RESP 20; TEMP 96.6; O2SAT 98
[2016-06-29 01:59] LABS: BICARBONATE 29.4 MEQ/L (21.0-32.0); POTASSIUM 4.1 MEQ/L (3.5-5.1)
[2016-06-29] MEDS: CHLORHEXIDINE GLUCONATE 2 % 1 PACK (2 CLOTHS) TOP SCH (03:21)
[2016-06-29 04:00] VITALS: BP 137/73; PULSE 75; RESP 20; TEMP 96.7; O2SAT 99
[2016-06-29] MEDS: HEPARIN SODIUM - SQ 10,000 UNITS/ML VIAL SQ SCH ×2 (05:40→18:21)
[2016-06-29] MEDS: POTASSIUM PHOSPHATE/SODIUM PHOSPHATE 250 MG TAB PO SCH ×4 (05:40→18:21)
[2016-06-29 08:00] VITALS: BP 121/72; PULSE 78; RESP 20; TEMP 96.4; O2SAT 100
[2016-06-29 08:16] LABS: BICARBONATE 30.7 MEQ/L (21.0-32.0); POTASSIUM 3.7 MEQ/L (3.5-5.1)
[2016-06-29] MEDS: COLLAGENASE OINT 30 GM TUBE TOP SCH (09:00)
[2016-06-29] MEDS: SODIUM CHLORIDE 0.9% FLUSH 5 ML FLUSH IV FLUSH SCH ×2 (09:00→21:00)
[2016-06-29] MEDS: hydrOXYzine PAMOATE 25 MG CAP PO SCH ×3 (10:13→18:22)
[2016-06-29] MEDS: LISINOPRIL 10 MG TAB PO SCH ×2 (10:13→21:21)
[2016-06-29] MEDS: PANTOPRAZOLE SOD 40 MG DELAYED RELEASE TAB PO SCH (10:13)
[2016-06-29] MEDS: DILTIAZEM HCL 60 MG TAB PO SCH ×4 (10:13→21:21)
[2016-06-29] MEDS: FERROUS SULFATE 325 MG (65 MG ELEMENTAL IRON) TAB PO SCH ×2 (10:13→21:21)
[2016-06-29] MEDS: MULTIVITAMINS LIQUID 5 ML UDC PO SCH (10:14)
[2016-06-29 11:57] LABS: BICARBONATE 26.5 MEQ/L (21.0-32.0)
[2016-06-29 12:00] VITALS: BP 130/74; PULSE 86; RESP 22; TEMP 98.9; O2SAT 99
[2016-06-29] MEDS: METOPROLOL TARTRATE 100 MG TAB PO SCH ×2 (13:14→21:21)
--- NOTE | 2016-06-29 13:33 | PD.PLAS.PN ---
Subjective Remarks Patient awake and able to converse limited capacity Not able to articulate much but seems to understand simple sentences. Not in distress Both thighs are clean and dry, most of the erosions noted in the past are closed Sacral VAC is holding well. OK to use VAC for several weeks and assess the healing. I will be available for next two days - then Dr. Claudio can help to answer any questions - until Dr. Silva is back in town. Vital Signs Date Time Temp Pulse Resp B/P Pulse Ox O2 Delivery O2 Flow Rate FiO2 06/29/16 09:00 Room Air 06/29/16 08:00 96.4 78 20 121/72 100 06/29/16 04:00 96.7 75 20 137/73 99 06/29/16 00:00 96.6 73 20 121/82 98 06/28/16 20:20 Room Air 06/28/16 20:00 96.2 96 18 152/81 96 06/28/16 18:11 98.4 80 18 122/69 96 I/O 06/28/16 06/28/16 06/28/16 06/29/16 06/29/16 06/29/16 07:00 15:00 23:00 07:00 15:00 23:00 Intake Total 360 ml 120 ml 0 ml Output Total 150 ml 800 ml 350 ml Balance 210 ml -680 ml -350 ml Intake Oral 360 ml 120 ml 0 ml Output Urine Total 150 ml 800 ml 350 ml # Bowel Movements 2 3 1 Laboratory Tests Test 06/28/16 06/28/16 06/28/16 06/29/16 14:20 19:03 22:57 01:30 Sodium Level 153 149 150 152 Potassium Level 3.9 3.7 3.3 4.1 Chloride Level 116 114 115 118 Carbon Dioxide Level 30.8 30.6 31.5 29.4 Anion Gap 6 4 4 5 Blood Urea Nitrogen 19 20 21 20 Creatinine 1.09 1.12 1.01 0.94 Estimat Glomerular Filtration 52 50 56 61 Rate Random Glucose 117 139 102 108 Calcium Level 8.5 8.0 7.8 8.3 Magnesium Level 2.3 Test 06/29/16 06/29/16 06:32 11:00 Sodium Level 151 148 Potassium Level 3.7 5.0 Chloride Level 115 117 Carbon Dioxide Level 30.7 26.5 Anion Gap 5 5 Blood Urea Nitrogen 19 19 Creatinine 0.99 1.00 Estimat Glomerular Filtration 58 57 Rate Random Glucose 94 139 Calcium Level 8.1 8.2 Result Diagram: 06/29/16 1100 Jose Fuller MD Jun 29, 2016 13:32
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
[2016-06-29 15:42] LABS: BICARBONATE 29.7 MEQ/L (21.0-32.0); MAGNESIUM 2.3 MG/DL (1.5-2.5); POTASSIUM 4.1 MEQ/L (3.5-5.1)
[2016-06-29 16:00] VITALS: BP 146/82; PULSE 82; RESP 20; TEMP 95.7; O2SAT 100
[2016-06-29 20:00] VITALS: BP 124/74; PULSE 81; RESP 18; TEMP 97.4; O2SAT 93
[2016-06-29 21:39] LABS: BICARBONATE 28.8 MEQ/L (21.0-32.0); POTASSIUM 4.5 MEQ/L (3.5-5.1)
[2016-06-30] VITALS (8 sets, daily range): BP systolic 120–148; BP diastolic 65–88; PULSE 60–89; RESP 18–20; TEMP 95.8–98.2; O2SAT 92–99
[2016-06-30] MEDS: CHLORHEXIDINE GLUCONATE 2 % 1 PACK (2 CLOTHS) TOP SCH (04:00)
[2016-06-30] MEDS: POTASSIUM PHOSPHATE/SODIUM PHOSPHATE 250 MG TAB PO SCH ×4 (05:44→18:01)
[2016-06-30] MEDS: HEPARIN SODIUM - SQ 10,000 UNITS/ML VIAL SQ SCH ×2 (05:44→18:01)
[2016-06-30] MEDS: SODIUM CHLORIDE 0.9% FLUSH 5 ML FLUSH IV FLUSH SCH ×2 (09:00→21:00)
[2016-06-30 09:24] LABS: BICARBONATE 29.9 MEQ/L (21.0-32.0)
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
[2016-06-30] MEDS: LISINOPRIL 10 MG TAB PO SCH ×2 (11:56→21:59)
[2016-06-30] MEDS: DILTIAZEM HCL 60 MG TAB PO SCH ×4 (11:56→21:59)
[2016-06-30] MEDS: METOPROLOL TARTRATE 100 MG TAB PO SCH ×2 (11:56→21:59)
[2016-06-30] MEDS: FERROUS SULFATE 325 MG (65 MG ELEMENTAL IRON) TAB PO SCH ×2 (11:56→21:59)
[2016-06-30] MEDS: MULTIVITAMINS LIQUID 5 ML UDC PO SCH (11:57)
[2016-06-30] MEDS: hydrOXYzine PAMOATE 25 MG CAP PO SCH ×3 (11:57→18:01)
[2016-06-30] MEDS: COLLAGENASE OINT 30 GM TUBE TOP SCH (11:57)
[2016-06-30] MEDS: PANTOPRAZOLE SOD 40 MG DELAYED RELEASE TAB PO SCH (11:57)
[2016-06-30] MEDS: POTASSIUM CHLORIDE INJ 10 MEQ in SODIUM CHLOR 0.45% 1000 ML INJ 1,000 ML IV SCH (14:27)
[2016-07-01] VITALS (7 sets, daily range): BP systolic 107–156; BP diastolic 57–79; PULSE 61–116; RESP 18–24; TEMP 96–98.4; O2SAT 92–97
[2016-07-01] MEDS: POTASSIUM PHOSPHATE/SODIUM PHOSPHATE 250 MG TAB PO SCH ×4 (00:24→19:02)
[2016-07-01] MEDS: CHLORHEXIDINE GLUCONATE 2 % 1 PACK (2 CLOTHS) TOP SCH (03:07)
[2016-07-01] MEDS: HEPARIN SODIUM - SQ 10,000 UNITS/ML VIAL SQ SCH ×2 (05:37→19:03)
[2016-07-01] MEDS: SODIUM CHLORIDE 0.9% FLUSH 5 ML FLUSH IV FLUSH SCH ×2 (09:00→21:00)
[2016-07-01] MEDS: DILTIAZEM HCL 60 MG TAB PO SCH ×4 (09:56→21:34)
[2016-07-01] MEDS: POTASSIUM CHLORIDE INJ 10 MEQ in SODIUM CHLOR 0.45% 1000 ML INJ 1,000 ML IV SCH (09:56)
[2016-07-01] MEDS: PANTOPRAZOLE SOD 40 MG DELAYED RELEASE TAB PO SCH (09:57)
[2016-07-01] MEDS: FERROUS SULFATE 325 MG (65 MG ELEMENTAL IRON) TAB PO SCH ×2 (09:57→21:34)
[2016-07-01] MEDS: LISINOPRIL 10 MG TAB PO SCH ×2 (09:57→21:33)
[2016-07-01] MEDS: METOPROLOL TARTRATE 100 MG TAB PO SCH ×2 (09:57→21:33)
[2016-07-01] MEDS: MULTIVITAMINS LIQUID 5 ML UDC PO SCH (09:58)
[2016-07-01] MEDS: hydrOXYzine PAMOATE 25 MG CAP PO SCH ×3 (09:58→19:02)
[2016-07-01] MEDS: COLLAGENASE OINT 30 GM TUBE TOP SCH (09:58)
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
[2016-07-01 13:46] LABS: BICARBONATE 27.9 MEQ/L (21.0-32.0); POTASSIUM 4.5 MEQ/L (3.5-5.1)
[2016-07-01] MEDS ORDERED: DEXTROSE 5% IN WATE 1000ML INJ 1,000 ML IV SCH (18:45)
[2016-07-02] VITALS (7 sets, daily range): BP systolic 109–139; BP diastolic 56–86; PULSE 60–71; RESP 18–20; TEMP 95.6–98; O2SAT 94–100
[2016-07-02] MEDS: POTASSIUM PHOSPHATE/SODIUM PHOSPHATE 250 MG TAB PO SCH ×4 (00:17→17:52)
[2016-07-02] MEDS: CHLORHEXIDINE GLUCONATE 2 % 1 PACK (2 CLOTHS) TOP SCH (04:00)
[2016-07-02] MEDS: HEPARIN SODIUM - SQ 10,000 UNITS/ML VIAL SQ SCH ×2 (04:40→17:51)
[2016-07-02 07:42] LABS: POTASSIUM 4.9 MEQ/L (3.5-5.1)
[2016-07-02] MEDS: SODIUM CHLORIDE 0.9% FLUSH 5 ML FLUSH IV FLUSH SCH ×2 (09:00→21:33)
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
[2016-07-02] MEDS: FERROUS SULFATE 325 MG (65 MG ELEMENTAL IRON) TAB PO SCH ×2 (09:57→21:32)
[2016-07-02] MEDS: DILTIAZEM HCL 60 MG TAB PO SCH ×4 (09:57→21:32)
[2016-07-02] MEDS: hydrOXYzine PAMOATE 25 MG CAP PO SCH ×3 (09:57→17:52)
[2016-07-02] MEDS: LISINOPRIL 10 MG TAB PO SCH ×2 (09:58→21:32)
[2016-07-02] MEDS: COLLAGENASE OINT 30 GM TUBE TOP SCH (09:58)
[2016-07-02] MEDS: METOPROLOL TARTRATE 100 MG TAB PO SCH ×2 (09:58→21:32)
[2016-07-02] MEDS: MULTIVITAMINS LIQUID 5 ML UDC PO SCH (09:58)
[2016-07-02] MEDS: PANTOPRAZOLE SOD 40 MG DELAYED RELEASE TAB PO SCH (09:58)
[2016-07-02] MEDS: SODIUM CHLOR 0.45% 1000 ML INJ 1,000 ML IV SCH (09:59)
[2016-07-03] VITALS (8 sets, daily range): BP systolic 121–149; BP diastolic 59–78; PULSE 58–83; RESP 16–18; TEMP 97.1–98.4; O2SAT 94–100
[2016-07-03] MEDS: POTASSIUM PHOSPHATE/SODIUM PHOSPHATE 250 MG TAB PO SCH ×5 (00:29→23:37)
[2016-07-03] MEDS: CHLORHEXIDINE GLUCONATE 2 % 1 PACK (2 CLOTHS) TOP SCH (04:00)
[2016-07-03] MEDS: SODIUM CHLOR 0.45% 1000 ML INJ 1,000 ML IV SCH ×2 (05:00→20:58)
[2016-07-03] MEDS: HEPARIN SODIUM - SQ 10,000 UNITS/ML VIAL SQ SCH ×2 (05:11→18:11)
[2016-07-03 06:03] LABS: POTASSIUM 3.8 MEQ/L (3.5-5.1)
[2016-07-03 08:02] LABS: HEMATOCRIT 32.5 % (35.0-46.0); MEAN CORPUSCULAR HEMOGLOBIN 25.3 PG (27.0-34.0); MEAN CORPUSCULAR HGB CONC 31.7 % (32.0-36.0); PLATELET COUNT 222 TH/MM3 (150-450); RED BLOOD COUNT 4.06 MIL/MM3 (4.00-5.30); RED CELL DISTRIBUTION WIDTH 22.3 % (11.6-17.2); REVIEW FLAG FINAL; WHITE BLOOD COUNT 8.7 TH/MM3 (4.0-11.0)
[2016-07-03] MEDS: SODIUM CHLORIDE 0.9% FLUSH 5 ML FLUSH IV FLUSH SCH ×2 (09:00→20:57)
[2016-07-03] MEDS: FERROUS SULFATE 325 MG (65 MG ELEMENTAL IRON) TAB PO SCH ×2 (09:53→20:57)
[2016-07-03] MEDS: DILTIAZEM HCL 60 MG TAB PO SCH ×4 (09:53→20:57)
[2016-07-03] MEDS: hydrOXYzine PAMOATE 25 MG CAP PO SCH ×3 (09:53→18:10)
[2016-07-03] MEDS: PANTOPRAZOLE SOD 40 MG DELAYED RELEASE TAB PO SCH (09:53)
[2016-07-03] MEDS: LISINOPRIL 10 MG TAB PO SCH ×2 (09:53→20:57)
[2016-07-03] MEDS: MULTIVITAMINS LIQUID 5 ML UDC PO SCH (09:53)
[2016-07-03] MEDS: METOPROLOL TARTRATE 100 MG TAB PO SCH ×2 (09:53→20:57)
[2016-07-03] MEDS: COLLAGENASE OINT 30 GM TUBE TOP SCH (09:54)
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
[2016-07-04] VITALS (7 sets, daily range): BP systolic 112–155; BP diastolic 66–75; PULSE 56–67; RESP 18–20; TEMP 96–97.5; O2SAT 94–100
[2016-07-04] MEDS: CHLORHEXIDINE GLUCONATE 2 % 1 PACK (2 CLOTHS) TOP SCH (04:00)
[2016-07-04] MEDS: POTASSIUM PHOSPHATE/SODIUM PHOSPHATE 250 MG TAB PO SCH ×4 (06:21→23:55)
[2016-07-04] MEDS: HEPARIN SODIUM - SQ 10,000 UNITS/ML VIAL SQ SCH ×2 (06:21→17:41)
[2016-07-04] MEDS: COLLAGENASE OINT 30 GM TUBE TOP SCH (09:00)
[2016-07-04] MEDS: SODIUM CHLORIDE 0.9% FLUSH 5 ML FLUSH IV FLUSH SCH ×2 (09:00→22:09)
[2016-07-04] MEDS: FERROUS SULFATE 325 MG (65 MG ELEMENTAL IRON) TAB PO SCH ×2 (09:13→22:10)
[2016-07-04] MEDS: LISINOPRIL 10 MG TAB PO SCH ×2 (09:13→22:09)
[2016-07-04] MEDS: DILTIAZEM HCL 60 MG TAB PO SCH ×4 (09:13→22:09)
[2016-07-04] MEDS: MULTIVITAMINS LIQUID 5 ML UDC PO SCH (09:13)
[2016-07-04] MEDS: PANTOPRAZOLE SOD 40 MG DELAYED RELEASE TAB PO SCH (09:13)
[2016-07-04] MEDS: hydrOXYzine PAMOATE 25 MG CAP PO SCH ×3 (09:13→17:43)
[2016-07-04] MEDS: METOPROLOL TARTRATE 100 MG TAB PO SCH ×2 (09:13→22:10)
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
[2016-07-04 14:46] LABS: BACTERIA, URINE RARE /hpf; BLOOD, URINE TRACE (NEG); GLUCOSE,URINE NEG (NEG); KETONE, URINE NEG (NEG); NITRITE,URINE NEG (NEG); PH, URINE 6.5 (5.0-8.5); URINE COLOR YELLOW (YELLW/STRAW)
[2016-07-04 14:48] LABS: COMMENT (UR) CATH-CULTURE IND; CULTURE IF INDICATED CATH CULTURE IND
[2016-07-04] MEDS: diphenhydrAMINE HCL 25 MG CAP PO PRN (15:51)
[2016-07-04] MEDS: SODIUM CHLOR 0.45% 1000 ML INJ 1,000 ML IV SCH (22:09)
[2016-07-04] MEDS: BACITRACIN TOP OINT 15 GM TUBE TOP SCH (22:09)
[2016-07-05] VITALS (8 sets, daily range): BP systolic 104–128; BP diastolic 58–78; PULSE 54–67; RESP 17–20; TEMP 94.3–98.4; O2SAT 90–100
[2016-07-05] MEDS: diphenhydrAMINE HCL 25 MG CAP PO PRN (00:27)
[2016-07-05] MEDS: CHLORHEXIDINE GLUCONATE 2 % 1 PACK (2 CLOTHS) TOP SCH (04:00)
[2016-07-05] MEDS: POTASSIUM PHOSPHATE/SODIUM PHOSPHATE 250 MG TAB PO SCH ×3 (05:09→17:26)
[2016-07-05] MEDS: HEPARIN SODIUM - SQ 10,000 UNITS/ML VIAL SQ SCH ×2 (05:09→17:24)
[2016-07-05] MEDS: hydrOXYzine PAMOATE 25 MG CAP PO SCH ×4 (08:02→17:26)
[2016-07-05] MEDS: SODIUM CHLORIDE 0.9% FLUSH 5 ML FLUSH IV FLUSH SCH ×2 (08:02→21:00)
[2016-07-05] MEDS: MULTIVITAMINS LIQUID 5 ML UDC PO SCH (08:02)
[2016-07-05] MEDS: PANTOPRAZOLE SOD 40 MG DELAYED RELEASE TAB PO SCH (08:02)
[2016-07-05] MEDS: METOPROLOL TARTRATE 100 MG TAB PO SCH ×2 (08:02→21:31)
[2016-07-05] MEDS: DILTIAZEM HCL 60 MG TAB PO SCH ×5 (08:03→21:31)
[2016-07-05] MEDS: LISINOPRIL 10 MG TAB PO SCH ×2 (08:03→21:31)
[2016-07-05] MEDS: FERROUS SULFATE 325 MG (65 MG ELEMENTAL IRON) TAB PO SCH ×2 (08:03→21:31)
[2016-07-05] MEDS: BACITRACIN TOP OINT 15 GM TUBE TOP SCH ×2 (08:04→21:00)
[2016-07-05] MEDS: COLLAGENASE OINT 30 GM TUBE TOP SCH (08:05)
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
[2016-07-06] VITALS (8 sets, daily range): BP systolic 104–135; BP diastolic 56–72; PULSE 61–89; RESP 18–20; TEMP 94.5–98.4; O2SAT 93–100
[2016-07-06] MEDS: POTASSIUM PHOSPHATE/SODIUM PHOSPHATE 250 MG TAB PO SCH ×4 (00:34→18:06)
[2016-07-06] MEDS: CHLORHEXIDINE GLUCONATE 2 % 1 PACK (2 CLOTHS) TOP SCH (04:00)
[2016-07-06] MEDS: HEPARIN SODIUM - SQ 10,000 UNITS/ML VIAL SQ SCH (05:34)
[2016-07-06 07:59] LABS: BICARBONATE 29.6 MEQ/L (21.0-32.0); POTASSIUM 3.4 MEQ/L (3.5-5.1)
[2016-07-06] MEDS: COLLAGENASE OINT 30 GM TUBE TOP SCH (09:00)
[2016-07-06] MEDS: DILTIAZEM HCL 60 MG TAB PO SCH ×4 (09:16→22:05)
[2016-07-06] MEDS: MULTIVITAMINS LIQUID 5 ML UDC PO SCH (09:16)
[2016-07-06] MEDS: FERROUS SULFATE 325 MG (65 MG ELEMENTAL IRON) TAB PO SCH ×2 (09:16→22:05)
[2016-07-06] MEDS: PANTOPRAZOLE SOD 40 MG DELAYED RELEASE TAB PO SCH (09:16)
[2016-07-06] MEDS: METOPROLOL TARTRATE 100 MG TAB PO SCH ×2 (09:16→22:06)
[2016-07-06] MEDS: LISINOPRIL 10 MG TAB PO SCH ×2 (09:16→22:05)
[2016-07-06] MEDS: NS + KCL 20 MEQ INJ 1,000 ML IV SCH (09:16)
[2016-07-06] MEDS: hydrOXYzine PAMOATE 25 MG CAP PO SCH ×3 (09:16→18:06)
[2016-07-06] MEDS: SODIUM CHLORIDE 0.9% FLUSH 5 ML FLUSH IV FLUSH SCH ×2 (09:17→21:00)
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
[2016-07-06 17:15] LABS: INTERNATIONAL NORMALIZED RATIO 1.2 RATIO; PROTHROMBIN TIME - PATIENT 13.6 SEC (9.8-11.6)
[2016-07-06] MEDS: BACITRACIN TOP OINT 15 GM TUBE TOP SCH (21:00)
[2016-07-07] VITALS: BP 93/55; PULSE 52; RESP 20; TEMP 96; O2SAT 92
[2016-07-07] MEDS: POTASSIUM PHOSPHATE/SODIUM PHOSPHATE 250 MG TAB PO SCH ×4 (01:40→17:50)
[2016-07-07 04:00] VITALS: BP 139/70; PULSE 68; RESP 20; TEMP 98.1; O2SAT 94
[2016-07-07] MEDS: CHLORHEXIDINE GLUCONATE 2 % 1 PACK (2 CLOTHS) TOP SCH (04:00)
[2016-07-07 05:56] LABS: AUTOMATED NEUTROPHIL # 4.1 TH/MM3 (1.8-7.7); BASOPHIL % 0.5 % (0.0-2.0); EOSINOPHIL # 1.2 TH/MM3 (0-0.4); EOSINOPHIL % 15.5 % (0.0-4.0); HEMATOCRIT 31.4 % (35.0-46.0); HEMO FLAGS DIFF FINAL; LYMPH % 26.5 % (9.0-44.0); LYMPHOCYTE # 2.1 TH/MM3 (1.0-4.8); MEAN CELL VOLUME 79.7 FL (80.0-100.0); MEAN CORPUSCULAR HEMOGLOBIN 25.7 PG (27.0-34.0); MEAN CORPUSCULAR HGB CONC 32.3 % (32.0-36.0); MONO % 6.2 % (0.0-8.0); NEUT % 51.3 % (16.0-70.0); PLATELET COUNT 256 TH/MM3 (150-450); RED BLOOD COUNT 3.94 MIL/MM3 (4.00-5.30); RED CELL DISTRIBUTION WIDTH 23.3 % (11.6-17.2); WHITE BLOOD COUNT 8.1 TH/MM3 (4.0-11.0)
[2016-07-07 08:00] VITALS: BP 145/70; PULSE 79; RESP 20; TEMP 97.3; O2SAT 96
[2016-07-07] MEDS: COLLAGENASE OINT 30 GM TUBE TOP SCH (09:00)
[2016-07-07] MEDS: BACITRACIN TOP OINT 15 GM TUBE TOP SCH ×2 (09:50→21:00)
[2016-07-07] MEDS: SODIUM CHLORIDE 0.9% FLUSH 5 ML FLUSH IV FLUSH SCH ×2 (09:50→21:00)
[2016-07-07] MEDS: NS + KCL 20 MEQ INJ 1,000 ML IV SCH (09:51)
[2016-07-07] MEDS: DILTIAZEM HCL 60 MG TAB PO SCH ×4 (09:55→23:05)
[2016-07-07] MEDS: FERROUS SULFATE 325 MG (65 MG ELEMENTAL IRON) TAB PO SCH ×2 (09:55→23:05)
[2016-07-07] MEDS: PANTOPRAZOLE SOD 40 MG DELAYED RELEASE TAB PO SCH (09:56)
[2016-07-07] MEDS: METOPROLOL TARTRATE 100 MG TAB PO SCH ×2 (09:56→23:05)
[2016-07-07] MEDS: MULTIVITAMINS LIQUID 5 ML UDC PO SCH (09:56)
[2016-07-07] MEDS: hydrOXYzine PAMOATE 25 MG CAP PO SCH ×3 (09:56→17:49)
[2016-07-07] MEDS: LISINOPRIL 10 MG TAB PO SCH ×2 (09:56→23:05)
[2016-07-07 11:30] VITALS: BP 145/70; PULSE 79; RESP 20; TEMP 97.3; O2SAT 96
[2016-07-07] MEDS ORDERED: ceFAZolin INJ 1,000 MG VIAL IV ONE (12:09)
[2016-07-07] MEDS ORDERED: PROPOFOL 200 MG/20 ML AMP IV PUSH ONE (12:38)
[2016-07-07 16:00] VITALS: BP 116/70; PULSE 67; RESP 22; TEMP 96; O2SAT 100
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
[2016-07-07 20:00] VITALS: BP 122/75; PULSE 94; RESP 20; TEMP 99.3; O2SAT 97
[2016-07-08] VITALS: BP 104/51; PULSE 77; RESP 20; TEMP 99.2; O2SAT 98
[2016-07-08] MEDS: POTASSIUM PHOSPHATE/SODIUM PHOSPHATE 250 MG TAB PO SCH ×5 (00:35→23:19)
[2016-07-08 04:00] VITALS: BP 121/72; PULSE 75; RESP 20; TEMP 98.9; O2SAT 99
[2016-07-08] MEDS: CHLORHEXIDINE GLUCONATE 2 % 1 PACK (2 CLOTHS) TOP SCH (04:00)
[2016-07-08 05:51] LABS: HEMATOCRIT 34.1 % (35.0-46.0); MEAN CELL VOLUME 80.3 FL (80.0-100.0); MEAN CORPUSCULAR HEMOGLOBIN 26.3 PG (27.0-34.0); MEAN CORPUSCULAR HGB CONC 32.8 % (32.0-36.0); PLATELET COUNT 231 TH/MM3 (150-450); RED BLOOD COUNT 4.24 MIL/MM3 (4.00-5.30); RED CELL DISTRIBUTION WIDTH 23.2 % (11.6-17.2); REVIEW FLAG FINAL; WHITE BLOOD COUNT 10.8 TH/MM3 (4.0-11.0)
[2016-07-08 06:12] LABS: BICARBONATE 27.9 MEQ/L (21.0-32.0); POTASSIUM 4.1 MEQ/L (3.5-5.1)
[2016-07-08 08:00] VITALS: BP 130/88; PULSE 89; RESP 18; TEMP 98.9; O2SAT 96
[2016-07-08] MEDS: BACITRACIN TOP OINT 15 GM TUBE TOP SCH ×2 (09:00→21:00)
[2016-07-08] MEDS: SODIUM CHLORIDE 0.9% FLUSH 5 ML FLUSH IV FLUSH SCH ×2 (09:00→21:00)
[2016-07-08] MEDS: COLLAGENASE OINT 30 GM TUBE TOP SCH (09:00)
[2016-07-08] MEDS: MULTIVITAMINS LIQUID 5 ML UDC PO SCH (09:07)
[2016-07-08] MEDS: FERROUS SULFATE 325 MG (65 MG ELEMENTAL IRON) TAB PO SCH ×2 (09:07→23:19)
[2016-07-08] MEDS: LISINOPRIL 10 MG TAB PO SCH ×2 (09:07→23:20)
[2016-07-08] MEDS: PANTOPRAZOLE SOD 40 MG DELAYED RELEASE TAB PO SCH (09:07)
[2016-07-08] MEDS: METOPROLOL TARTRATE 100 MG TAB PO SCH ×2 (09:07→23:19)
[2016-07-08] MEDS: DILTIAZEM HCL 60 MG TAB PO SCH ×4 (09:07→23:19)
[2016-07-08] MEDS: hydrOXYzine PAMOATE 25 MG CAP PO SCH ×3 (09:08→17:20)
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
[2016-07-08 12:00] VITALS: BP 117/65; PULSE 71; RESP 18; TEMP 98.5; O2SAT 95
--- NOTE | 2016-07-08 15:12 | HHI.GIFU ---
Subjective Remarks Resting in bed. Nonverbal. No distress (Brooklyn Lizama) Objective Vitals I&O Vital Signs Date Time Temp Pulse Resp B/P Pulse Ox O2 Delivery O2 Flow Rate FiO2 07/08/16 12:00 98.5 71 18 117/65 95 07/08/16 08:00 98.9 89 18 130/88 96 07/08/16 07:15 Room Air 07/08/16 04:00 98.9 75 20 121/72 99 07/08/16 04:00 Room Air 07/08/16 00:00 99.2 77 20 104/51 98 07/07/16 20:00 99.3 94 20 122/75 97 07/07/16 20:00 Room Air 07/07/16 16:00 96.0 67 22 116/70 100 I/O 07/07/16 07/07/16 07/07/16 07/08/16 07/08/16 07/08/16 07:00 15:00 23:00 07:00 15:00 23:00 Intake Total 0 ml 440 ml 120 ml 340 ml Output Total 425 ml 600 ml 600 ml 350 ml Balance -425 ml -160 ml -480 ml -10 ml Intake Oral 0 ml 0 ml 120 ml 340 ml IV Total 240 ml Other 200 ml Output Urine Total 425 ml 600 ml 600 ml 350 ml Bladder Scan Volume Amount 15 ml # Bowel Movements 1 1 0 0 Laboratory Laboratory Tests Test 07/08/16 05:34 White Blood Count 10.8 Red Blood Count 4.24 Hemoglobin 11.2 Hematocrit 34.1 Mean Corpuscular Volume 80.3 Mean Corpuscular Hemoglobin 26.3 Mean Corpuscular Hemoglobin 32.8 Concent Red Cell Distribution Width 23.2 Platelet Count 231 Mean Platelet Volume 7.9 Sodium Level 139 Potassium Level 4.1 Chloride Level 105 Carbon Dioxide Level 27.9 Anion Gap 6 Blood Urea Nitrogen 10 Creatinine 0.90 Estimat Glomerular Filtration 64 Rate Random Glucose 105 Calcium Level 8.1 Date/Time Procedure Status Source Growth 07/04/16 14:25 Urine Culture - Final Complete Urine Catheterized Urine Escherichia Coli Pseudomonas Aeruginosa Imaging Last Impressions Chest X-Ray 06/01/16 0600 Signed Impressions: Service Date/Time: Wednesday, June 01, 2016 05:33 - CONCLUSION: Minimal patchy bilateral lower lung zone atelectasis. Rony Espinoza MD Lower Extremity Ultrasound 06/01/16 0000 Signed Impressions: Service Date/Time: Wednesday, June 01, 2016 02:44 - CONCLUSION: No evidence of lower extremity DVT on the right or left. Rony Espinoza MD Head CT 05/31/16 0000 Signed Impressions: Service Date/Time: Tuesday, May 31, 2016 11:51 - CONCLUSION: 1. 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 2. Negative for an acute process. Vinay Avalos MD FACR Physical Exam HEENT: Normocephalic; atraumatic; no jaundice. CHEST: Resp. even/unlabored CARDIAC: RRR ABDOMEN: Soft, nondistended, nontender; no hepatosplenomegaly; PEG tube site without redness, swelling, or drainage although there was scant amount of dried blood noted on bandage. EXTREMITIES: Generalized edema. SKIN: Dry flaky skin [employer]OUNT [employer]GER [employer] B[employer]EFITS: Nonverbal (Brooklyn Lizama) Assessment and Plan Plan ASSESSMENT: - Dysphagia/FTT. S/P EGD with peg tube placement (07/07/16). Site without redness or swelling. Scant amount of dried blood on drsg, but no active bleeding. Store Administrator recommends Jevity 1.5 @ 55ml/hr. ST recommends puree diet with honey thickened liquids - Infected decubitus ulcer and other skin breakdown and ulceration, low albumin , she is currently on pured diet and thickened liquids has poor PO intake. previously had PEG tube that was removed years ago - Acute respiratory failure-resolved. now on room air. - Hep -c- consider tx as an OP Plan: - S/P EGD with peg tube placement - Jevity 1.5 at GR 55cc/hr - Puree diet with honey thickened liquids - GI will sign off, please reconsult as needed - Patient seen and examined by Dr. Pascal and myself and this note is written on his behalf. (Brooklyn Lizama) Physician Comments S/P peg, doing well, tolerating TF. Flush peg with 150cc of water Q shift. Will sign off, reconsult as needed. Thank you (Charito Pascal MD) [place] Lizama Jul 08, 2016 15:12 Charito Pascal MD Jul 08, 2016 16:37
--- NOTE | 2016-07-08 15:54 | HHI.PR ---
Subjective Subjective Notes Working with PT No acute events Objective Vitals/I&O Vital Signs Date Time Temp Pulse Resp B/P Pulse Ox O2 Delivery O2 Flow Rate FiO2 07/08/16 12:00 98.5 71 18 117/65 95 07/08/16 07:15 Room Air 07/06/16 17:57 21 Labs Laboratory Tests Test 07/08/16 05:34 White Blood Count 10.8 Red Blood Count 4.24 Hemoglobin 11.2 Hematocrit 34.1 Mean Corpuscular Volume 80.3 Mean Corpuscular Hemoglobin 26.3 Mean Corpuscular Hemoglobin 32.8 Concent Red Cell Distribution Width 23.2 Platelet Count 231 Mean Platelet Volume 7.9 Sodium Level 139 Potassium Level 4.1 Chloride Level 105 Carbon Dioxide Level 27.9 Anion Gap 6 Blood Urea Nitrogen 10 Creatinine 0.90 Estimat Glomerular Filtration 64 Rate Random Glucose 105 Calcium Level 8.1 Date/Time Procedure Status Source Growth 07/04/16 14:25 Urine Culture - Final Complete Urine Catheterized Urine Escherichia Coli Pseudomonas Aeruginosa Cardiovascular: Regular Lungs: Clear Abdomen: Other (PEG in place; abd otherwise soft non tender ) Narrative Exam dry skin generalized edema A/P Assessment and Plan 60 year old female with large sacral wound; with multiple medical problems -I have ordered an abdominal binder -Plan for diverting colostomy tomorrow with Dr. Faulkner -Hold heparin -Obtain consents -NPO after MN Attending note Patient has mitts on; most sores are healed. I am concerned we will trade one problem (decubitus ulcer) for another ( excoriated skin when pt. pulls off the colostomy appliance and stool spills onto skin). Will proceed for medical team. The exam, history, and the medical decision-making described in the above note were completed with the assistance of the mid-level provider. I reviewed and agree with the findings presented. I attest that I had a [id number]-[id number] encounter with the patient on the same day, and personally performed and documented my assessment and findings in the medical record. Ruma Orta Jul 08, 2016 15:54 Zechariah Faulkner MD Jul 09, 2016 12:12
[2016-07-08 16:00] VITALS: BP 110/61; PULSE 80; RESP 18; TEMP 97.9; O2SAT 96
[2016-07-08 20:44] VITALS: BP 110/65; PULSE 77; RESP 20; TEMP 98.4; O2SAT 98
[2016-07-08] MEDS: NS + KCL 20 MEQ INJ 1,000 ML IV SCH (23:19)
[2016-07-08] MEDS: diphenhydrAMINE HCL 25 MG CAP PO PRN (23:39)
[2016-07-09] VITALS (7 sets, daily range): BP systolic 94–178; BP diastolic 56–79; PULSE 48–106; RESP 18–20; TEMP 96.4–98.6; O2SAT 93–100
[2016-07-09] MEDS: POTASSIUM PHOSPHATE/SODIUM PHOSPHATE 250 MG TAB PO SCH ×3 (05:36→18:00)
[2016-07-09] MEDS ORDERED: LACTATED RINGER'S 1000 ML IV SCH (08:00)
[2016-07-09] MEDS ORDERED: SODIUM CHLORID 0.9% 500 ML IV SCH (08:00)
[2016-07-09] MEDS ORDERED: METOPROLOL TARTRATE 25 MG TAB PO PRN (08:30)
[2016-07-09] MEDS ORDERED: INSULIN HUMAN REGULAR 1,000 UNITS/10 ML VIAL SQ PRN (08:30)
[2016-07-09] MEDS: BACITRACIN TOP OINT 15 GM TUBE TOP SCH ×2 (09:00→21:00)
[2016-07-09] MEDS: COLLAGENASE OINT 30 GM TUBE TOP SCH (09:00)
[2016-07-09] MEDS: SODIUM CHLORIDE 0.9% FLUSH 5 ML FLUSH IV FLUSH SCH ×2 (09:00→22:17)
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
[2016-07-09] MEDS: METOPROLOL TARTRATE 100 MG TAB PO SCH ×2 (09:30→22:17)
[2016-07-09] MEDS: MULTIVITAMINS LIQUID 5 ML UDC PO SCH (09:30)
[2016-07-09] MEDS: LISINOPRIL 10 MG TAB PO SCH ×2 (09:30→22:17)
[2016-07-09] MEDS: PANTOPRAZOLE SOD 40 MG DELAYED RELEASE TAB PO SCH (09:30)
[2016-07-09] MEDS: diphenhydrAMINE HCL 25 MG CAP PO PRN ×2 (09:30→22:16)
[2016-07-09] MEDS: hydrOXYzine PAMOATE 25 MG CAP PO SCH ×4 (09:30→18:00)
[2016-07-09] MEDS: DILTIAZEM HCL 60 MG TAB PO SCH ×4 (09:30→22:17)
[2016-07-09] MEDS: FERROUS SULFATE 325 MG (65 MG ELEMENTAL IRON) TAB PO SCH ×2 (09:30→22:16)
[2016-07-09] MEDS: NS + KCL 20 MEQ INJ 1,000 ML IV SCH (18:00)
[2016-07-10] VITALS (9 sets, daily range): BP systolic 104–155; BP diastolic 57–107; PULSE 56–99; RESP 18–20; TEMP 94.4–98; O2SAT 90–100
[2016-07-10] MEDS: POTASSIUM PHOSPHATE/SODIUM PHOSPHATE 250 MG TAB PO SCH ×4 (06:53→17:14)
[2016-07-10] MEDS: LISINOPRIL 10 MG TAB PO SCH ×2 (09:00→22:11)
[2016-07-10] MEDS: METOPROLOL TARTRATE 100 MG TAB PO SCH (09:00)
[2016-07-10] MEDS: SODIUM CHLORIDE 0.9% FLUSH 5 ML FLUSH IV FLUSH SCH ×2 (09:00→22:11)
[2016-07-10] MEDS: DILTIAZEM HCL 60 MG TAB PO SCH ×4 (09:00→22:11)
[2016-07-10] MEDS: COLLAGENASE OINT 30 GM TUBE TOP SCH (09:00)
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
[2016-07-10] MEDS: NS + KCL 20 MEQ INJ 1,000 ML IV SCH (12:39)
[2016-07-10] MEDS: MULTIVITAMINS LIQUID 5 ML UDC PO SCH (12:40)
[2016-07-10] MEDS: FERROUS SULFATE 325 MG (65 MG ELEMENTAL IRON) TAB PO SCH ×2 (12:40→22:11)
[2016-07-10] MEDS: PANTOPRAZOLE SOD 40 MG DELAYED RELEASE TAB PO SCH (12:40)
[2016-07-10] MEDS: hydrOXYzine PAMOATE 25 MG CAP PO SCH ×3 (12:41→17:14)
[2016-07-10] MEDS: BACITRACIN TOP OINT 15 GM TUBE TOP SCH ×2 (12:41→21:00)
--- NOTE | 2016-07-10 14:06 | HHI.PR ---
Subjective Subjective Notes Ms. Garcia seen this morning. Patient requests soda to drink. No complaints reported. No concerns overnight per nursing staff. No reported problems with PEG feedings. 3 BM documented overnight. Objective Vitals/I&O Vital Signs Date Time Temp Pulse Resp B/P Pulse Ox O2 Delivery O2 Flow Rate FiO2 07/10/16 12:00 94.4 63 18 105/57 100 07/10/16 10:47 Nasal Cannula 2.00 07/09/16 14:00 21 Narrative Exam GENERAL: No acute distress SKIN: Warm and dry. Ulcer not inspected on this exam. HEAD: Normocephalic. EYES: No scleral icterus, injection, or drainage. NECK: Supple, trachea midline. No JVD or lymphadenopathy. CARDIOVASCULAR: Regular rate and rhythm without murmurs to auscultation. RESPIRATORY: Breath sounds equal bilaterally. Normal rate GASTROINTESTINAL: Abdomen soft, non-tender, nondistended. MUSCULOSKELETAL: No/minimal lower extremity edema. Restraints in place NEURO: Awake and alert. Patient only sometimes questions; speech somewhat unintelligible. Symmetric motor function A/P Problem List: (1) History of CVA (cerebrovascular accident) (2) COPD (chronic obstructive pulmonary disease) (3) Neurocognitive disorder (4) Essential hypertension (5) Infected decubitus ulcer Assessment and Plan 60-year-old female with PMH CVA, sepsis with infected decubitus ulcer: -Will defer diverting colostomy at this time due to bradycardia; Cardiology consultation ordered -Per Cardiology- 2 D echo, decrease rate control agents (Cardizem, Metoprolol ) -Continue wound management -Wound vac at 125mmHg, change MWF -Continue management per ID -Continue management of other medical conditions per primary team / GI Attending Note As above Patient seen and evaluated with resident under direct supervision, agree with assessment and plan. Problem Qualifiers (1) Infected decubitus ulcer: Qualified Code: L89.95 - Infected decubitus ulcer, unstageable Rafiq Mane MD R2 Jul 10, 2016 14:06 Zechariah Faulkner MD Jul 10, 2016 15:02
[2016-07-10] MEDS: diphenhydrAMINE HCL 25 MG CAP PO PRN (22:11)
[2016-07-11] VITALS (8 sets, daily range): BP systolic 104–129; BP diastolic 57–79; PULSE 71–91; RESP 18–22; TEMP 97.1–97.5; O2SAT 94–100
[2016-07-11] MEDS: POTASSIUM PHOSPHATE/SODIUM PHOSPHATE 250 MG TAB PO SCH ×5 (01:06→23:41)
--- NOTE | 2016-07-11 02:00 | EC ---
Study Study Date:07/10/2016 STUDY CONCLUSIONS SUMMARY - Left ventricle: The cavity size was normal. Wall thickness was normal. Systolic function was mildly reduced. The estimated ejection fraction was in the range of 45% to 50%. Wall motion was normal; there were no regional wall motion abnormalities. - Mitral valve: Mild regurgitation. - Tricuspid valve: Mild regurgitation. - Pulmonary arteries: PA peak pressure: 43mm Hg (S). If LV function is below 40, please consider prescribing an ACEI or ARB or document rationale for non-use. PROCEDURE DATA STUDY STATUS: Elective. Procedure: Transthoracic echocardiography. Image quality was good. Scanning was performed from the parasternal, apical, and subcostal acoustic windows. Study completion: The patient tolerated the procedure well. Transthoracic echocardiography. M-mode, complete 2D, complete spectral Doppler, and color Doppler. Patient status: Inpatient. CARDIAC ANATOMY LEFT VENTRICLE: The cavity size was normal. Wall thickness was normal. Systolic function was mildly reduced. The estimated ejection fraction was in the range of 45% to 50%. Wall motion was normal; there were no regional wall motion abnormalities. AORTIC VALVE: Trileaflet; normal thickness leaflets. Doppler: Transvalvular velocity was within the normal range. There was no stenosis. No regurgitation. AORTA: Aortic root: The aortic root was normal in size. MITRAL VALVE: Structurally normal valve. Doppler: Transvalvular velocity was within the normal range. There was no evidence for stenosis. Mild regurgitation. Peak gradient: 2mm Hg (D). LEFT ATRIUM: The atrium was normal in size. RIGHT VENTRICLE: The cavity size was normal. Wall thickness was normal. PULMONIC VALVE: Doppler: Transvalvular velocity was within the normal range. There was no evidence for stenosis. No regurgitation. TRICUSPID VALVE: Structurally normal valve. Doppler: Transvalvular velocity was within the normal range. Mild regurgitation. PULMONARY ARTERY: The main pulmonary artery was normal-sized. Systolic pressure was within the normal range. RIGHT ATRIUM: The atrium was normal in size. PERICARDIUM: There was no pericardial effusion. SYSTEMIC VEINS: Inferior vena cava: The vessel was normal in size. BASIC MEASUREMENTS ADULT NORMAL Left ventricle LV internal dimension, ED, chordal level, 49.4 mm 43-52 PLAX LV internal dimension, ES, chordal level, *39 mm 23-38 PLAX Fractional shortening, chordal level, PLAX *21 % >29 LV posterior wall thickness, ED 9.37 mm IVS/LVPW ratio, ED 1.01 <1.3 Ventricular septum Septal thickness, ED 9.43 mm Aorta Root diameter, ED 30 mm Left atrium Anterior-posterior dimension 32 mm Right ventricle RV internal dimension, ED, PLAX 32.5 mm 19-38 DOPPLER MEASUREMENTS ADULT NORMAL Main pulmonary artery Pressure, S *43 mm Hg =30 Mitral valve Peak E-wave velocity 74 cm/s Peak A-wave velocity 84.4 cm/s Peak gradient, D 2 mm Hg Peak E/A ratio 0.9 Tricuspid valve Regurgitant peak velocity 288 cm/s Peak RV-RA gradient, S 33 mm Hg Maximal regurgitant velocity 288 cm/s Systemic veins Estimated CVP 10 mm Hg Right ventricle RV pressure, S *43 mm Hg <30 LEGEND: Mean values are shown as u=mean value. Asterisk (*) montalvo values outside specified normal range. Prepared and signed by Jose Grullon [id number]
--- NOTE | 2016-07-11 08:02 | HHI.PR ---
Subjective Subjective Notes Ms. Garcia seen this morning. No complaints reported. Patient states she is breathing well and does not have chest pain. No concerns overnight per nursing staff. Objective Vitals/I&O Vital Signs Date Time Temp Pulse Resp B/P Pulse Ox O2 Delivery O2 Flow Rate FiO2 07/11/16 04:00 97.1 79 20 122/79 100 07/10/16 20:00 Room Air 07/10/16 10:47 2.00 07/09/16 14:00 21 Narrative Exam GENERAL: No acute distress SKIN: Warm and dry. Ulcer not inspected on this exam. HEAD: Normocephalic. EYES: No scleral icterus, injection, or drainage. CARDIOVASCULAR: Regular rate and rhythm without murmurs to auscultation. RESPIRATORY: Breath sounds equal bilaterally. Normal rate GASTROINTESTINAL: Abdomen soft, non-tender, nondistended. MUSCULOSKELETAL: No/minimal lower extremity edema. NEURO: Awake and alert. Patient only sometimes questions; speech somewhat unintelligible. Symmetric motor function A/P Problem List: (1) History of CVA (cerebrovascular accident) (2) COPD (chronic obstructive pulmonary disease) (3) Neurocognitive disorder (4) Essential hypertension (5) Infected decubitus ulcer Assessment and Plan 60-year-old female with PMH CVA, sepsis with infected decubitus ulcer: -Cardiology consulted for patient's bradycardia -Per Cardiology- 2 D echo, decrease rate control agents (Cardizem, Metoprolol ) -Echo demonstrated normal LV systolic function; we'll plan for diverting ostomy early next week -Continue wound management -Wound vac at 125mmHg, change MWF -Continue management per ID -Continue management of other medical conditions per primary team / GI Reconsult for diverting colostomy; will proceed as soon as able. Patient seen and evaluated with resident under direct supervision, agree with assessment and plan. Problem Qualifiers (1) Infected decubitus ulcer: Qualified Code: L89.95 - Infected decubitus ulcer, unstageable Rafiq Mane MD R2 Jul 11, 2016 08:02 Zechariah Faulkner MD Jul 20, 2016 21:20
[2016-07-11] MEDS: COLLAGENASE OINT 30 GM TUBE TOP SCH (09:00)
[2016-07-11] MEDS: NS + KCL 20 MEQ INJ 1,000 ML IV SCH (09:17)
[2016-07-11] MEDS: SODIUM CHLORIDE 0.9% FLUSH 5 ML FLUSH IV FLUSH SCH ×2 (09:18→20:10)
[2016-07-11] MEDS: MULTIVITAMINS LIQUID 5 ML UDC PO SCH (09:26)
[2016-07-11] MEDS: FERROUS SULFATE 325 MG (65 MG ELEMENTAL IRON) TAB PO SCH (09:26)
[2016-07-11] MEDS: LISINOPRIL 10 MG TAB PO SCH ×2 (09:26→20:10)
[2016-07-11] MEDS: PANTOPRAZOLE SOD 40 MG DELAYED RELEASE TAB PO SCH (09:26)
[2016-07-11] MEDS: DILTIAZEM HCL 60 MG TAB PO SCH ×4 (09:26→20:10)
[2016-07-11] MEDS: hydrOXYzine PAMOATE 25 MG CAP PO SCH ×3 (09:55→18:25)
[2016-07-11] MEDS: BACITRACIN TOP OINT 15 GM TUBE TOP SCH ×2 (10:07→20:11)
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
[2016-07-11] MEDS: FAMOTIDINE 20 MG TAB NG SCH (20:10)
[2016-07-11] MEDS: FERROUS SULFATE 300 MG /5ML UDC PO SCH (20:10)
[2016-07-11] MEDS: diphenhydrAMINE HCL 25 MG CAP PO PRN (20:10)
[2016-07-11] MEDS: FREE WATER G-TUBE SCH (20:11)
[2016-07-12] VITALS (8 sets, daily range): BP systolic 119–166; BP diastolic 65–93; PULSE 84–95; RESP 18–22; TEMP 97–98.6; O2SAT 94–100
[2016-07-12 05:15] LABS: BICARBONATE 30.4 MEQ/L (21.0-32.0); POTASSIUM 3.6 MEQ/L (3.5-5.1)
[2016-07-12 05:24] LABS: AUTOMATED NEUTROPHIL # 3.4 TH/MM3 (1.8-7.7); BASOPHIL % 0.2 % (0.0-2.0); EOSINOPHIL # 1.2 TH/MM3 (0-0.4); HEMO FLAGS DIFF FINAL; LYMPH % 28.5 % (9.0-44.0); LYMPHOCYTE # 2.1 TH/MM3 (1.0-4.8); MEAN CELL VOLUME 81.1 FL (80.0-100.0); MEAN CORPUSCULAR HEMOGLOBIN 26.1 PG (27.0-34.0); MEAN CORPUSCULAR HGB CONC 32.2 % (32.0-36.0); MONO % 7.4 % (0.0-8.0); NEUT % 46.9 % (16.0-70.0); PLATELET COUNT 202 TH/MM3 (150-450); RED BLOOD COUNT 3.32 MIL/MM3 (4.00-5.30); RED CELL DISTRIBUTION WIDTH 23.5 % (11.6-17.2); WHITE BLOOD COUNT 7.3 TH/MM3 (4.0-11.0)
[2016-07-12] MEDS: FREE WATER G-TUBE SCH ×3 (06:00→20:45)
[2016-07-12] MEDS: POTASSIUM PHOSPHATE/SODIUM PHOSPHATE 250 MG TAB PO SCH ×3 (06:16→18:18)
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
[2016-07-12] MEDS ORDERED: POTASSIUM PHOSPHATE MONOBASIC 500 MG TAB PO ONE (07:45)
[2016-07-12] MEDS: COLLAGENASE OINT 30 GM TUBE TOP SCH (09:00)
[2016-07-12] MEDS: SODIUM CHLORIDE 0.9% FLUSH 5 ML FLUSH IV FLUSH SCH ×2 (09:00→20:45)
[2016-07-12] MEDS: BACITRACIN TOP OINT 15 GM TUBE TOP SCH ×2 (09:00→20:44)
[2016-07-12] MEDS: DILTIAZEM HCL 60 MG TAB PO SCH ×4 (09:11→20:43)
[2016-07-12] MEDS: MULTIVITAMINS LIQUID 5 ML UDC PO SCH (09:11)
[2016-07-12] MEDS: LISINOPRIL 10 MG TAB PO SCH ×2 (09:11→20:44)
[2016-07-12] MEDS: FAMOTIDINE 20 MG TAB NG SCH ×2 (09:11→20:44)
[2016-07-12] MEDS: FERROUS SULFATE 300 MG /5ML UDC PO SCH ×2 (09:11→20:43)
[2016-07-12] MEDS: hydrOXYzine PAMOATE 25 MG CAP PO SCH ×3 (09:11→18:18)
--- NOTE | 2016-07-12 15:24 | HHI.PR ---
Subjective Subjective Notes Hb is down to 8.7 (nearly 2 1/2 grams since last test) Objective Vitals/I&O Vital Signs Date Time Temp Pulse Resp B/P Pulse Ox O2 Delivery O2 Flow Rate FiO2 07/12/16 12:00 97.4 91 18 134/87 95 07/12/16 11:18 Nasal Cannula 2.00 07/10/16 23:00 21 Labs Laboratory Tests Test 07/12/16 04:32 White Blood Count 7.3 Red Blood Count 3.32 Hemoglobin 8.7 Hematocrit 27.0 Mean Corpuscular Volume 81.1 Mean Corpuscular Hemoglobin 26.1 Mean Corpuscular Hemoglobin 32.2 Concent Red Cell Distribution Width 23.5 Platelet Count 202 Mean Platelet Volume 7.7 Neutrophils (%) (Auto) 46.9 Lymphocytes (%) (Auto) 28.5 Monocytes (%) (Auto) 7.4 Eosinophils (%) (Auto) 17.0 Basophils (%) (Auto) 0.2 Neutrophils # (Auto) 3.4 Lymphocytes # (Auto) 2.1 Monocytes # (Auto) 0.5 Eosinophils # (Auto) 1.2 Basophils # (Auto) 0.0 CBC Comment DIFF FINAL Differential Comment Sodium Level 144 Potassium Level 3.6 Chloride Level 108 Carbon Dioxide Level 30.4 Anion Gap 6 Blood Urea Nitrogen 12 Creatinine 0.66 Estimat Glomerular Filtration 92 Rate Random Glucose 113 Calcium Level 7.6 Lungs: Clear Abdomen: Non-tender A/P Problem List: (1) History of CVA (cerebrovascular accident) (2) COPD (chronic obstructive pulmonary disease) (3) Neurocognitive disorder (4) Essential hypertension (5) Infected decubitus ulcer Assessment and Plan 60-year-old female with PMH CVA, sepsis with infected decubitus ulcer: -Per Cardiology- 2 D echo, decrease rate control agents (Cardizem, Metoprolol ) -Continue wound management -Wound vac at 125mmHg, change MWF -Continue management per ID -Continue management of other medical conditions per primary team / GI Plan diverting colostomy early next week. Placement issue will be a problem. Problem Qualifiers (1) Infected decubitus ulcer: Qualified Code: L89.95 - Infected decubitus ulcer, unstageable Zechariah Faulkner MD Jul 12, 2016 15:24
[2016-07-12] MEDS: diphenhydrAMINE HCL 25 MG CAP PO PRN (18:26)
[2016-07-13] VITALS (9 sets, daily range): BP systolic 140–164; BP diastolic 74–92; PULSE 84–97; RESP 16–22; TEMP 96.5–98.2; O2SAT 98–100
[2016-07-13] MEDS: POTASSIUM PHOSPHATE/SODIUM PHOSPHATE 250 MG TAB PO SCH ×5 (05:51→22:41)
[2016-07-13] MEDS: diphenhydrAMINE HCL 25 MG CAP PO PRN ×2 (05:51→16:31)
[2016-07-13] MEDS: FREE WATER G-TUBE SCH ×3 (05:51→22:00)
[2016-07-13] MEDS: COLLAGENASE OINT 30 GM TUBE TOP SCH (09:00)
[2016-07-13] MEDS: SODIUM CHLORIDE 0.9% FLUSH 5 ML FLUSH IV FLUSH SCH ×2 (09:00→21:00)
[2016-07-13] MEDS: BACITRACIN TOP OINT 15 GM TUBE TOP SCH ×2 (09:00→21:00)
[2016-07-13] MEDS: MULTIVITAMINS LIQUID 5 ML UDC PO SCH (09:45)
[2016-07-13] MEDS: FERROUS SULFATE 300 MG /5ML UDC PO SCH (09:45)
[2016-07-13] MEDS: FAMOTIDINE 20 MG TAB NG SCH (09:45)
[2016-07-13] MEDS: DILTIAZEM HCL 60 MG TAB PO SCH ×4 (09:45→22:41)
[2016-07-13] MEDS: hydrOXYzine PAMOATE 25 MG CAP PO SCH ×3 (09:45→16:30)
[2016-07-13] MEDS: LISINOPRIL 10 MG TAB PO SCH ×2 (09:45→22:42)
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
[2016-07-14] VITALS (8 sets, daily range): BP systolic 117–168; BP diastolic 62–88; PULSE 90–106; RESP 18–24; TEMP 97.4–98.4; O2SAT 94–100
[2016-07-14] MEDS: POTASSIUM PHOSPHATE/SODIUM PHOSPHATE 250 MG TAB PO SCH ×3 (06:00→17:01)
[2016-07-14] MEDS: FREE WATER G-TUBE SCH ×3 (06:00→22:00)
[2016-07-14 08:10] LABS: AUTOMATED NEUTROPHIL # 5.2 TH/MM3 (1.8-7.7); BASOPHIL % 0.4 % (0.0-2.0); EOSINOPHIL # 2.2 TH/MM3 (0-0.4); EOSINOPHIL % 21.4 % (0.0-4.0); HEMATOCRIT 32.3 % (35.0-46.0); LYMPH % 22.1 % (9.0-44.0); LYMPHOCYTE # 2.3 TH/MM3 (1.0-4.8); MEAN CORPUSCULAR HEMOGLOBIN 26.1 PG (27.0-34.0); MEAN CORPUSCULAR HGB CONC 32.6 % (32.0-36.0); NEUT % 50.1 % (16.0-70.0); PLATELET COUNT 260 TH/MM3 (150-450); RED BLOOD COUNT 4.03 MIL/MM3 (4.00-5.30); RED CELL DISTRIBUTION WIDTH 23.1 % (11.6-17.2); WHITE BLOOD COUNT 10.5 TH/MM3 (4.0-11.0)
[2016-07-14 08:14] LABS: HEMO FLAGS AUTO DIFF
[2016-07-14 08:44] LABS: BICARBONATE 33.2 MEQ/L (21.0-32.0); MAGNESIUM 2.1 MG/DL (1.5-2.5); POTASSIUM 3.9 MEQ/L (3.5-5.1)
[2016-07-14 08:45] LABS: BANDS 2 % (0-6); EOSINOPHILS 18 % (0-4); MYELOCYTES 2 % (0-0); NEUTROPHIL # MANUAL DIFF 6.5 TH/MM3 (1.8-7.7); PLATELET ESTIMATE SMEAR NORMAL (NORMAL); PLATELET MORPHOLOGY NORMAL (NORMAL); POLYS (SEG NEUTROPHILS) 58 % (16-70); SCAN/DIFF FINAL DIFF MANUAL; WBC DIFF SAMPLE 100
[2016-07-14] MEDS: SODIUM CHLORIDE 0.9% FLUSH 5 ML FLUSH IV FLUSH SCH ×2 (09:00→21:00)
[2016-07-14] MEDS: DILTIAZEM HCL 60 MG TAB PO SCH ×4 (09:00→23:09)
[2016-07-14] MEDS: hydrOXYzine PAMOATE 25 MG CAP PO SCH ×3 (09:00→17:01)
[2016-07-14] MEDS: MULTIVITAMINS LIQUID 5 ML UDC PO SCH (12:18)
[2016-07-14] MEDS: LISINOPRIL 10 MG TAB PO SCH ×2 (12:19→23:09)
[2016-07-14] MEDS: COLLAGENASE OINT 30 GM TUBE TOP SCH (12:21)
[2016-07-14] MEDS: BACITRACIN TOP OINT 15 GM TUBE TOP SCH ×2 (12:21→23:09)
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
[2016-07-15] VITALS (9 sets, daily range): BP systolic 100–133; BP diastolic 59–69; PULSE 76–93; RESP 16–18; TEMP 96.8–98.4; O2SAT 94–100
[2016-07-15] MEDS: POTASSIUM PHOSPHATE/SODIUM PHOSPHATE 250 MG TAB PO SCH ×5 (02:09→23:54)
[2016-07-15] MEDS: diphenhydrAMINE HCL 25 MG CAP PO PRN (02:56)
[2016-07-15] MEDS: FREE WATER G-TUBE SCH ×3 (06:00→23:50)
[2016-07-15] MEDS ORDERED: SUGAMMADEX SODIUM 200 MG/2 ML VIAL IV PUSH ONE ×2 (08:21)
[2016-07-15] MEDS ORDERED: HYDROmorphone HCL PF 2 MG/ML VIAL ONE (08:21)
[2016-07-15] MEDS: MULTIVITAMINS LIQUID 5 ML UDC PO SCH (08:21)
[2016-07-15] MEDS ORDERED: BUPIVACAINE/EPINEPHRINE 0.25% PF 30 ML VIAL ONE (08:21)
[2016-07-15] MEDS: LISINOPRIL 10 MG TAB PO SCH ×2 (08:22→23:49)
[2016-07-15] MEDS: hydrOXYzine PAMOATE 25 MG CAP PO SCH ×3 (08:22→14:24)
[2016-07-15] MEDS: DILTIAZEM HCL 60 MG TAB PO SCH ×4 (08:22→23:49)
[2016-07-15] MEDS: COLLAGENASE OINT 30 GM TUBE TOP SCH (09:00)
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
[2016-07-15] MEDS ORDERED: ceFAZolin INJ 1,000 MG VIAL IV ONE ×2 (09:35→12:00)
[2016-07-15] MEDS: SODIUM CHLORIDE 0.9% FLUSH 5 ML FLUSH IV FLUSH SCH ×2 (10:28→23:50)
[2016-07-15] MEDS: BACITRACIN TOP OINT 15 GM TUBE TOP SCH ×2 (10:29→23:50)
[2016-07-15] MEDS ORDERED: DO NOT ADM ANY ANTICOAGULANT DRUGS XX PRN ×3 (11:15→11:45)
[2016-07-15] MEDS ORDERED: fentaNYL CITRATE 250 MCG/5 ML AMP ONE (11:48)
[2016-07-15] MEDS ORDERED: MIDAZOLAM HCL 2 MG/2 ML VIAL ONE (11:48)
[2016-07-15] MEDS ORDERED: NORMOSOL R INJ 1,000 ML IV ONE (12:00)
[2016-07-15] MEDS ORDERED: LACTATED RINGER'S 1000 ML INJ 1,000 ML IV ONE (12:00)
[2016-07-15] MEDS ORDERED: ONDANSETRON HCL 4 MG/2 ML VIAL IV PUSH ONE (12:00)
[2016-07-15] MEDS ORDERED: PHENYLEPH/NS 1000 MCG/10 ML SYR IV ONE (12:00)
[2016-07-15] MEDS ORDERED: ePHEDrine/NS 50 MG/5 ML SYR IV ONE (12:00)
[2016-07-15] MEDS ORDERED: PROPOFOL 200 MG/20 ML AMP IV ONE (12:00)
[2016-07-15] MEDS ORDERED: VASOPRESSIN INJ 20 UNITS/ML VIAL IV ONE (12:00)
--- NOTE | 2016-07-15 12:06 | HHI.PR ---
cc: Zechariah Faulkner MD Immediate Post Op Note Procedure Date: Jul 15, 2016 Pre Op Diagnosis: Decubitus ulcer, nonhealing with CVA Post Op Diagnosis: Same Surgeon: Zechariah Faulkner [place] Carpenter(s): EDDI French Procedure: Lap assisted diverting loop colostomy Complications: None Specimen(s) removed: None Estimated blood loss: 50 ml Anesthesia: General Drains: None IVF (1600 ml) Patient to: PACU Patient Condition: Good Date/Time of Procedure: SEE SURGICAL CARE RECORD Zechariah Faulkner MD Jul 15, 2016 12:06
[2016-07-15] MEDS: LACTATED RINGER'S 1000 ML INJ 1,000 ML IV SCH (12:20)
[2016-07-15] MEDS ORDERED: EUCERIN CREAM 120 GM JAR TOPICAL PRN (19:30)
[2016-07-16] VITALS (7 sets, daily range): BP systolic 114–145; BP diastolic 63–88; PULSE 68–87; RESP 18–20; TEMP 97.1–97.4; O2SAT 91–99
[2016-07-16] MEDS: FREE WATER G-TUBE SCH ×3 (06:29→21:56)
[2016-07-16] MEDS: POTASSIUM PHOSPHATE/SODIUM PHOSPHATE 250 MG TAB PO SCH ×3 (06:29→17:49)
[2016-07-16 08:09] LABS: BICARBONATE 30.4 MEQ/L (21.0-32.0)
[2016-07-16] MEDS: SODIUM CHLORIDE 0.9% FLUSH 5 ML FLUSH IV FLUSH SCH ×2 (09:00→21:00)
[2016-07-16] MEDS: LISINOPRIL 10 MG TAB PO SCH ×2 (09:51→21:49)
[2016-07-16] MEDS: DILTIAZEM HCL 60 MG TAB PO SCH ×4 (09:51→21:49)
[2016-07-16] MEDS: MULTIVITAMINS LIQUID 5 ML UDC PO SCH (09:51)
[2016-07-16] MEDS: BACITRACIN TOP OINT 15 GM TUBE TOP SCH ×2 (09:51→21:52)
[2016-07-16] MEDS: hydrOXYzine PAMOATE 25 MG CAP PO SCH ×3 (09:51→17:49)
[2016-07-16] MEDS: COLLAGENASE OINT 30 GM TUBE TOP SCH (09:52)
[2016-07-16] MEDS: LACTATED RINGER'S 1000 ML INJ 1,000 ML IV SCH ×3 (09:54→21:50)
[2016-07-16] MEDS ORDERED: SUGAMMADEX SODIUM 200 MG/2 ML VIAL IV PUSH ONE ×2 (13:27)
[2016-07-16] MEDS ORDERED: MIDAZOLAM HCL 2 MG/2 ML VIAL ONE (14:37)
--- NOTE | 2016-07-16 15:15 | HHI.PR ---
Subjective Subjective Notes No complaints of pain; indicates no pain in abdomen; able to communicate. Objective Vitals/I&O Vital Signs Date Time Temp Pulse Resp B/P Pulse Ox O2 Delivery O2 Flow Rate FiO2 07/16/16 08:00 97.4 81 20 123/65 91 07/15/16 20:00 Nasal Cannula 2.00 07/15/16 14:25 21 Labs Laboratory Tests Test 07/16/16 07:14 Sodium Level 136 Potassium Level 4.0 Chloride Level 99 Carbon Dioxide Level 30.4 Anion Gap 7 Blood Urea Nitrogen 9 Creatinine 0.65 Estimat Glomerular Filtration 94 Rate Random Glucose 171 Calcium Level 8.2 Cardiovascular: Regular Lungs: Clear Abdomen: Non-distended Narrative Exam Colostomy viable; serosanguinous fluid in bag. A/P Problem List: (1) History of CVA (cerebrovascular accident) (2) COPD (chronic obstructive pulmonary disease) (3) Neurocognitive disorder (4) Essential hypertension (5) Infected decubitus ulcer Assessment and Plan 60-year-old female with PMH CVA, sepsis with infected decubitus ulcer POD #1 diverting loop colostomy: -Continue management of other medical conditions per primary team / GI Will sign off when colostomy functions; Ok to begin placement arrangements Decubitus ulcer dressing per wound care team. Problem Qualifiers (1) Infected decubitus ulcer: Qualified Code: L89.95 - Infected decubitus ulcer, unstageable Zechariah Faulkner MD Jul 16, 2016 15:15
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
[2016-07-17] VITALS (8 sets, daily range): BP systolic 116–129; BP diastolic 61–83; PULSE 70–102; RESP 18–20; TEMP 97.2–98.2; O2SAT 94–98
[2016-07-17] MEDS: POTASSIUM PHOSPHATE/SODIUM PHOSPHATE 250 MG TAB PO SCH ×5 (00:42→23:55)
[2016-07-17] MEDS: FREE WATER G-TUBE SCH ×3 (06:00→21:39)
[2016-07-17 06:14] LABS: AUTOMATED NEUTROPHIL # 6.2 TH/MM3 (1.8-7.7); BASOPHIL % 0.1 % (0.0-2.0); EOSINOPHIL # 0.4 TH/MM3 (0-0.4); EOSINOPHIL % 4.9 % (0.0-4.0); HEMATOCRIT 28.3 % (35.0-46.0); HEMO FLAGS DIFF FINAL; LYMPHOCYTE # 1.5 TH/MM3 (1.0-4.8); MEAN CORPUSCULAR HEMOGLOBIN 25.7 PG (27.0-34.0); MEAN CORPUSCULAR HGB CONC 31.8 % (32.0-36.0); MONO % 7.8 % (0.0-8.0); NEUT % 70.2 % (16.0-70.0); PLATELET COUNT 271 TH/MM3 (150-450); WHITE BLOOD COUNT 8.9 TH/MM3 (4.0-11.0)
[2016-07-17 06:39] LABS: BICARBONATE 31.5 MEQ/L (21.0-32.0); MAGNESIUM 2.1 MG/DL (1.5-2.5)
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
[2016-07-17] MEDS: COLLAGENASE OINT 30 GM TUBE TOP SCH (09:00)
[2016-07-17] MEDS: SODIUM CHLORIDE 0.9% FLUSH 5 ML FLUSH IV FLUSH SCH ×2 (09:00→21:00)
[2016-07-17] MEDS: BACITRACIN TOP OINT 15 GM TUBE TOP SCH ×2 (09:00→21:39)
--- NOTE | 2016-07-17 09:00 | HHI.PR ---
Subjective Subjective Notes Ms. Garcia was afebrile with stable vital signs overnight. Per nursing staff, patient doing well with oral and tube feeds. Patient seen this morning in the company of her ; patient is more vocal than usual this morning. No complaints reported. Objective Vitals/I&O Vital Signs Date Time Temp Pulse Resp B/P Pulse Ox O2 Delivery O2 Flow Rate FiO2 07/17/16 04:00 97.2 89 18 122/61 94 07/16/16 20:00 Nasal Cannula 2.00 21 Labs Laboratory Tests Test 07/17/16 05:20 White Blood Count 8.9 Red Blood Count 3.50 Hemoglobin 9.0 Hematocrit 28.3 Mean Corpuscular Volume 81.0 Mean Corpuscular Hemoglobin 25.7 Mean Corpuscular Hemoglobin 31.8 Concent Red Cell Distribution Width 23.0 Platelet Count 271 Mean Platelet Volume 7.4 Neutrophils (%) (Auto) 70.2 Lymphocytes (%) (Auto) 17.0 Monocytes (%) (Auto) 7.8 Eosinophils (%) (Auto) 4.9 Basophils (%) (Auto) 0.1 Neutrophils # (Auto) 6.2 Lymphocytes # (Auto) 1.5 Monocytes # (Auto) 0.7 Eosinophils # (Auto) 0.4 Basophils # (Auto) 0.0 CBC Comment DIFF FINAL Differential Comment Sodium Level 139 Potassium Level 4.0 Chloride Level 102 Carbon Dioxide Level 31.5 Anion Gap 6 Blood Urea Nitrogen 9 Creatinine 0.58 Estimat Glomerular Filtration 107 Rate Random Glucose 139 Calcium Level 8.2 Magnesium Level 2.1 Cardiovascular: Regular (regular rate and rhythm, no murmurs appreciated ) Lungs: Clear Abdomen: Non-distended, Other (minimal tenderness to palpation ) Extremities: No edema, SCD's on, Other (no calf pain or asymmetry appreciated ) Narrative Exam Colostomy viable. No visible stool; serosanguinous fluid present. No surrounding erythema PEG tube appears to be working well A/P Problem List: (1) Status post colostomy (2) Infected decubitus ulcer (3) History of CVA (cerebrovascular accident) (4) COPD (chronic obstructive pulmonary disease) (5) Neurocognitive disorder (6) Essential hypertension Assessment and Plan 60-year-old female with PMH CVA, sepsis with infected decubitus ulcer: -POD 2 diverting loop colostomy -serosanguinous fluid in ostomy at this time; awaiting stool -Patient eating normally -Continue PEG tube feeds Jevity 1.5 at 55cc/hr -Continue wound care management -Continue ulcer management per ID -Continue management per primary team Patient seen and evaluated with resident under direct supervision, agree with assessment and plan. Problem Qualifiers (1) Infected decubitus ulcer: Qualified Code: L89.95 - Infected decubitus ulcer, unstageable Rafiq Mane MD R2 Jul 17, 2016 09:00 Zechariah Faulkner MD Jul 18, 2016 23:23
[2016-07-17] MEDS: MULTIVITAMINS LIQUID 5 ML UDC PO SCH (09:16)
[2016-07-17] MEDS: DILTIAZEM HCL 60 MG TAB PO SCH ×4 (09:16→21:37)
[2016-07-17] MEDS: hydrOXYzine PAMOATE 25 MG CAP PO SCH ×3 (09:16→16:56)
[2016-07-17] MEDS: LISINOPRIL 10 MG TAB PO SCH ×2 (09:16→21:37)
[2016-07-18] VITALS (9 sets, daily range): BP systolic 117–145; BP diastolic 61–85; PULSE 86–104; RESP 16–18; TEMP 96.8–98.7; O2SAT 92–100
[2016-07-18] MEDS: POTASSIUM PHOSPHATE/SODIUM PHOSPHATE 250 MG TAB PO SCH ×4 (04:33→23:53)
[2016-07-18] MEDS: diphenhydrAMINE HCL 25 MG CAP PO PRN (04:33)
[2016-07-18] MEDS: FREE WATER G-TUBE SCH ×3 (05:14→22:00)
[2016-07-18 07:41] LABS: AUTOMATED NEUTROPHIL # 6.4 TH/MM3 (1.8-7.7); BASOPHIL % 0.2 % (0.0-2.0); EOSINOPHIL # 1.3 TH/MM3 (0-0.4); EOSINOPHIL % 12.4 % (0.0-4.0); HEMATOCRIT 28.9 % (35.0-46.0); HEMO FLAGS DIFF FINAL; LYMPH % 16.9 % (9.0-44.0); LYMPHOCYTE # 1.7 TH/MM3 (1.0-4.8); MEAN CELL VOLUME 80.8 FL (80.0-100.0); MEAN CORPUSCULAR HEMOGLOBIN 25.6 PG (27.0-34.0); MEAN CORPUSCULAR HGB CONC 31.6 % (32.0-36.0); MONO % 8.2 % (0.0-8.0); NEUT % 62.3 % (16.0-70.0); PLATELET COUNT 273 TH/MM3 (150-450); RED BLOOD COUNT 3.58 MIL/MM3 (4.00-5.30); WHITE BLOOD COUNT 10.3 TH/MM3 (4.0-11.0)
[2016-07-18 08:03] LABS: BICARBONATE 32.5 MEQ/L (21.0-32.0)
[2016-07-18] MEDS: BACITRACIN TOP OINT 15 GM TUBE TOP SCH ×2 (09:00→23:54)
[2016-07-18] MEDS: COLLAGENASE OINT 30 GM TUBE TOP SCH (09:00)
[2016-07-18] MEDS: SODIUM CHLORIDE 0.9% FLUSH 5 ML FLUSH IV FLUSH SCH (09:00)
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
[2016-07-18] MEDS ORDERED: LIDOCAINE-PRILOCAIN 2.5% CREAM 5 GM TUBE TOPICAL PRN (09:45)
[2016-07-18] MEDS: LISINOPRIL 10 MG TAB PO SCH ×2 (09:56→23:53)
[2016-07-18] MEDS: hydrOXYzine PAMOATE 25 MG CAP PO SCH ×3 (09:56→17:49)
[2016-07-18] MEDS: MULTIVITAMINS LIQUID 5 ML UDC PO SCH (09:56)
[2016-07-18] MEDS: DILTIAZEM HCL 60 MG TAB PO SCH ×4 (09:56→23:53)
--- NOTE | 2016-07-18 23:23 | HHI.PR ---
Subjective Subjective Notes Still has mitts on; will pick at things, including skin and colostomy bag, if not protected. Colostomy with stool in bag Objective Vitals/I&O Vital Signs Date Time Temp Pulse Resp B/P Pulse Ox O2 Delivery O2 Flow Rate FiO2 07/18/16 20:00 98.7 93 18 127/63 99 07/18/16 13:56 21 07/18/16 13:55 Nasal Cannula 2.00 Labs Laboratory Tests Test 07/18/16 07:08 White Blood Count 10.3 Red Blood Count 3.58 Hemoglobin 9.2 Hematocrit 28.9 Mean Corpuscular Volume 80.8 Mean Corpuscular Hemoglobin 25.6 Mean Corpuscular Hemoglobin 31.6 Concent Red Cell Distribution Width 23.0 Platelet Count 273 Mean Platelet Volume 7.2 Neutrophils (%) (Auto) 62.3 Lymphocytes (%) (Auto) 16.9 Monocytes (%) (Auto) 8.2 Eosinophils (%) (Auto) 12.4 Basophils (%) (Auto) 0.2 Neutrophils # (Auto) 6.4 Lymphocytes # (Auto) 1.7 Monocytes # (Auto) 0.8 Eosinophils # (Auto) 1.3 Basophils # (Auto) 0.0 CBC Comment DIFF FINAL Differential Comment Sodium Level 136 Potassium Level 4.0 Chloride Level 98 Carbon Dioxide Level 32.5 Anion Gap 6 Blood Urea Nitrogen 12 Creatinine 0.64 Estimat Glomerular Filtration 95 Rate Random Glucose 129 Calcium Level 8.1 Lungs: Clear Abdomen: Non-distended Narrative Exam Colostomy viable; stool in bag. Appliance changed by nurse; intact at present. A/P Problem List: (1) Status post colostomy (2) Infected decubitus ulcer (3) History of CVA (cerebrovascular accident) (4) COPD (chronic obstructive pulmonary disease) (5) Neurocognitive disorder (6) Essential hypertension Assessment and Plan 60-year-old female with PMH CVA, sepsis with infected decubitus ulcer POD #3 diverting loop colostomy, now functioning. -Continue management of other medical conditions per primary team / GI -Ok to begin placement arrangements -Decubitus ulcer dressing per wound care team. - Will sign off; reconsult if needed. Problem Qualifiers (1) Infected decubitus ulcer: Qualified Code: L89.95 - Infected decubitus ulcer, unstageable Zechariah Faulkner MD Jul 18, 2016 23:23
[2016-07-19] VITALS (10 sets, daily range): BP systolic 116–154; BP diastolic 67–76; PULSE 82–103; RESP 18–22; TEMP 97.7–98.5; O2SAT 94–100
[2016-07-19] MEDS: FREE WATER G-TUBE SCH ×3 (06:00→22:00)
[2016-07-19] MEDS: POTASSIUM PHOSPHATE/SODIUM PHOSPHATE 250 MG TAB PO SCH ×4 (06:00→22:49)
[2016-07-19] MEDS: BACITRACIN TOP OINT 15 GM TUBE TOP SCH ×2 (09:00→22:28)
[2016-07-19] MEDS: COLLAGENASE OINT 30 GM TUBE TOP SCH (09:00)
[2016-07-19] MEDS: hydrOXYzine PAMOATE 25 MG CAP PO SCH ×3 (10:15→17:58)
[2016-07-19] MEDS: DILTIAZEM HCL 60 MG TAB PO SCH ×4 (10:15→22:28)
[2016-07-19] MEDS: SODIUM CHLORIDE 0.9% FLUSH 5 ML FLUSH IV FLUSH SCH ×3 (10:15→22:28)
[2016-07-19] MEDS: MULTIVITAMINS LIQUID 5 ML UDC PO SCH (10:15)
[2016-07-19] MEDS: LISINOPRIL 10 MG TAB PO SCH ×2 (10:16→22:28)
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
[2016-07-20] VITALS (9 sets, daily range): BP systolic 125–153; BP diastolic 57–78; PULSE 84–104; RESP 20–22; TEMP 98.2–99; O2SAT 95–100
[2016-07-20] MEDS: FREE WATER G-TUBE SCH ×3 (06:00→21:59)
[2016-07-20] MEDS: POTASSIUM PHOSPHATE/SODIUM PHOSPHATE 250 MG TAB PO SCH ×4 (06:06→21:57)
--- NOTE | 2016-07-20 08:49 | PD.PLAS.PN ---
Subjective Remarks Patient sleeping, not awakened. Thigh areas have cleared up - no more dressings needed. Sacral vac in place, container is not full. Seems stable. I will sign off here today. Also [place] be [place] of [place] 4 [place] - please contact Plastic surgeon fire protection specialist for any immediate help. If she does get discharged - please refer her to the wound care clinic for further follow up. Vital Signs Date Time Temp Pulse Resp B/P Pulse Ox O2 Delivery O2 Flow Rate FiO2 07/20/16 08:00 99.0 93 20 125/66 96 07/20/16 04:00 98.7 89 20 129/57 98 07/20/16 00:00 98.9 104 20 153/78 100 07/19/16 20:45 Room Air 07/19/16 20:00 98.1 99 22 154/76 97 07/19/16 19:57 103 07/19/16 16:00 98.5 92 20 128/71 96 07/19/16 13:32 97 21 07/19/16 12:00 98.5 91 22 116/72 99 I/O 07/19/16 07/19/16 07/19/16 07/20/16 07/20/16 07/20/16 06:59 14:59 22:59 06:59 14:59 22:59 Intake Total 578 ml 585 ml 360 ml Output Total 300 ml 850 ml Balance 578 ml 285 ml -490 ml Intake Oral 360 ml IV Total 0 ml Tube Feeding 578 ml 385 ml Other 200 ml Output Urine Total 300 ml 850 ml Bladder Scan Volume Amount 15 ml 15 ml # Bowel Movements 1 0 1 Result Diagram: 07/18/16 0708 07/18/16 0708 Jose Fuller MD Jul 20, 2016 08:49
[2016-07-20] MEDS: hydrOXYzine PAMOATE 25 MG CAP PO SCH ×3 (09:00→18:07)
[2016-07-20] MEDS: MULTIVITAMINS LIQUID 5 ML UDC PO SCH (10:48)
[2016-07-20] MEDS: LISINOPRIL 10 MG TAB PO SCH ×2 (10:48→21:57)
[2016-07-20] MEDS: SODIUM CHLORIDE 0.9% FLUSH 5 ML FLUSH IV FLUSH SCH ×2 (10:49→22:00)
[2016-07-20] MEDS: DILTIAZEM HCL 60 MG TAB PO SCH ×4 (10:49→21:57)
[2016-07-20] MEDS: BACITRACIN TOP OINT 15 GM TUBE TOP SCH ×2 (10:50→21:58)
[2016-07-20] MEDS: COLLAGENASE OINT 30 GM TUBE TOP SCH (10:50)
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
[2016-07-21] VITALS (8 sets, daily range): BP systolic 124–136; BP diastolic 64–83; PULSE 84–103; RESP 16–20; TEMP 97.1–98.4; O2SAT 94–100
[2016-07-21] MEDS: diphenhydrAMINE HCL 25 MG CAP PO PRN (03:03)
[2016-07-21] MEDS: FREE WATER G-TUBE SCH ×3 (05:35→22:00)
[2016-07-21] MEDS: POTASSIUM PHOSPHATE/SODIUM PHOSPHATE 250 MG TAB PO SCH ×3 (05:35→17:21)
[2016-07-21] MEDS: COLLAGENASE OINT 30 GM TUBE TOP SCH (09:00)
[2016-07-21] MEDS: BACITRACIN TOP OINT 15 GM TUBE TOP SCH ×2 (09:00→21:00)
[2016-07-21] MEDS: LISINOPRIL 10 MG TAB PO SCH ×2 (10:41→21:00)
[2016-07-21] MEDS: DILTIAZEM HCL 60 MG TAB PO SCH ×4 (10:41→21:00)
[2016-07-21] MEDS: SODIUM CHLORIDE 0.9% FLUSH 5 ML FLUSH IV FLUSH SCH ×2 (10:41→21:00)
[2016-07-21] MEDS: hydrOXYzine PAMOATE 25 MG CAP PO SCH ×3 (10:41→17:21)
[2016-07-21] MEDS: MULTIVITAMINS LIQUID 5 ML UDC PO SCH (10:41)
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
[2016-07-21] MEDS: ENOXAPARIN SODIUM 40 MG/0.4 ML SYRINGE SQ SCH (17:21)
[2016-07-22 00:17] VITALS: BP 125/75; PULSE 58; RESP 18; TEMP 98.2; O2SAT 96
[2016-07-22] MEDS: POTASSIUM PHOSPHATE/SODIUM PHOSPHATE 250 MG TAB PO SCH ×4 (00:58→18:17)
[2016-07-22] MEDS: FREE WATER G-TUBE SCH ×3 (05:43→21:58)
[2016-07-22 06:08] VITALS: BP 139/74; PULSE 89; RESP 18; TEMP 97.5; O2SAT 100
[2016-07-22 08:00] VITALS: BP 110/71; PULSE 88; RESP 18; TEMP 97.6; O2SAT 99
[2016-07-22 08:39] LABS: BICARBONATE 31.5 MEQ/L (21.0-32.0); POTASSIUM 4.1 MEQ/L (3.5-5.1)
[2016-07-22 08:41] LABS: AUTOMATED NEUTROPHIL # 5.2 TH/MM3 (1.8-7.7); BASOPHIL # 0.1 TH/MM3 (0-0.2); BASOPHIL % 0.6 % (0.0-2.0); EOSINOPHIL # 2.5 TH/MM3 (0-0.4); EOSINOPHIL % 24.5 % (0.0-4.0); HEMATOCRIT 32.3 % (35.0-46.0); LYMPH % 16.4 % (9.0-44.0); LYMPHOCYTE # 1.7 TH/MM3 (1.0-4.8); MEAN CELL VOLUME 80.5 FL (80.0-100.0); MEAN CORPUSCULAR HEMOGLOBIN 26.4 PG (27.0-34.0); MEAN CORPUSCULAR HGB CONC 32.8 % (32.0-36.0); MONO % 7.4 % (0.0-8.0); NEUT % 51.1 % (16.0-70.0); PLATELET COUNT 373 TH/MM3 (150-450); RED BLOOD COUNT 4.01 MIL/MM3 (4.00-5.30); RED CELL DISTRIBUTION WIDTH 21.9 % (11.6-17.2); WHITE BLOOD COUNT 10.2 TH/MM3 (4.0-11.0)
[2016-07-22 08:55] LABS: HEMO FLAGS AUTO DIFF
[2016-07-22] MEDS: COLLAGENASE OINT 30 GM TUBE TOP SCH (09:00)
[2016-07-22] MEDS: BACITRACIN TOP OINT 15 GM TUBE TOP SCH ×2 (09:00→21:59)
[2016-07-22] MEDS: MULTIVITAMINS LIQUID 5 ML UDC PO SCH (09:22)
[2016-07-22] MEDS: DILTIAZEM HCL 60 MG TAB PO SCH ×4 (09:22→22:00)
[2016-07-22] MEDS: hydrOXYzine PAMOATE 25 MG CAP PO SCH ×3 (09:23→18:17)
[2016-07-22] MEDS: SODIUM CHLORIDE 0.9% FLUSH 5 ML FLUSH IV FLUSH SCH ×2 (09:23→22:00)
[2016-07-22] MEDS: LISINOPRIL 10 MG TAB PO SCH ×2 (09:23→22:00)
[2016-07-22 09:47] LABS: OVALOCYTES 1+ (NORMAL); SCAN/DIFF AUTO DIFF CONFIRMED
[2016-07-22 12:00] VITALS: BP 115/66; PULSE 92; RESP 18; TEMP 98; O2SAT 100
[2016-07-22] MEDS: ENOXAPARIN SODIUM 40 MG/0.4 ML SYRINGE SQ SCH (14:14)
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
[2016-07-22 16:00] VITALS: BP 133/69; PULSE 98; RESP 18; TEMP 98; O2SAT 100
[2016-07-22 20:00] VITALS: BP 122/70; PULSE 91; RESP 20; TEMP 97.6; O2SAT 100
[2016-07-22] MEDS: CALAMINE/PRAMOXINE LOTION 180 ML BTL TOPICAL SCH (21:58)
[2016-07-23] VITALS (7 sets, daily range): BP systolic 100–152; BP diastolic 56–79; PULSE 89–105; RESP 18–20; TEMP 97–98.1; O2SAT 94–100
[2016-07-23] MEDS: diphenhydrAMINE HCL 25 MG CAP PO PRN ×3 (01:07→18:19)
[2016-07-23] MEDS: POTASSIUM PHOSPHATE/SODIUM PHOSPHATE 250 MG TAB PO SCH ×5 (06:24→22:31)
[2016-07-23] MEDS: FREE WATER G-TUBE SCH ×3 (06:25→22:31)
[2016-07-23] MEDS: MULTIVITAMINS LIQUID 5 ML UDC PO SCH (08:56)
[2016-07-23] MEDS: BACITRACIN TOP OINT 15 GM TUBE TOP SCH ×2 (08:57→22:32)
[2016-07-23] MEDS: COLLAGENASE OINT 30 GM TUBE TOP SCH (08:57)
[2016-07-23] MEDS: hydrOXYzine PAMOATE 25 MG CAP PO SCH ×3 (08:57→18:19)
[2016-07-23] MEDS: LISINOPRIL 10 MG TAB PO SCH ×2 (08:57→21:00)
[2016-07-23] MEDS: DILTIAZEM HCL 60 MG TAB PO SCH ×4 (08:57→21:00)
[2016-07-23] MEDS: EUCERIN CREAM 120 GM JAR TOPICAL PRN (08:58)
[2016-07-23] MEDS: CALAMINE/PRAMOXINE LOTION 180 ML BTL TOPICAL SCH ×2 (08:58→22:31)
--- NOTE | 2016-07-23 10:35 | MP ---
cc: ANGELIQUE FAULKNER M.D. DATE OF SURGERY: 07/15/2016 PROCEDURE Laparoscopic assisted diverting loop colostomy. PREOPERATIVE DIAGNOSIS Decubitus ulcer with CVA and inability to care for self. POSTOPERATIVE DIAGNOSIS Decubitus ulcer with CVA and inability to care for self. ANESTHESIA General endotracheal. SURGEON Dr. Faulkner. ESTIMATED BLOOD LOSS 50 mL. FLUIDS 1600 mL crystalloid. COMPLICATIONS None. DRAINS None. SPECIMEN None. PROCEDURE IN DETAIL The patient was taken to the operating room and placed on the operating table in the supine position. After an adequate level of general endotracheal anesthesia was achieved the abdomen was prepped and draped in usual fashion. Time-out was taken confirming the correct patient, site and procedure to be performed. It should be noted that the PEG tube was prepped in the field as well as it was fairly close to the proposed colostomy site. At this point a 5 mm trocar was inserted under direct vision and access was attempted to enter the abdominal cavity. Definitive visualization was not accomplished and at this point it was felt that further dissection would be hazardous. The laparoscope and 5 mm trocar were removed and insufflation discontinued. A transverse incision was made in the left lower mid abdomen and the fascia divided and the rectus muscles . The posterior fascia was elevated and opened. The colon was identified and pulled into the wound. The colon was mobilized up with adequate length noted. The patient had substantial colon above the skin. The fascia was closed down with #1 Prolene sutures to prevent herniation. The skin was closed down somewhat also with 3-0 Vicryl suture and at this point the colon was opened longitudinally. The colostomy was matured with 3-0 Vicryl sutures with a double barrel colostomy created. A colostomy appliance was placed and the patient was extubated and taken back to the recovery room in stable condition. Sponge, needle and instrument counts were reported to be correct. The patient tolerated the procedure well. MD WALT Linares/TLL /10:02 PM /10:29 AM
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
[2016-07-23] MEDS: ENOXAPARIN SODIUM 40 MG/0.4 ML SYRINGE SQ SCH (12:51)
[2016-07-23] MEDS: SODIUM CHLORIDE 0.9% FLUSH 5 ML FLUSH IV FLUSH SCH ×2 (12:52→22:30)
--- NOTE | 2016-07-23 13:02 | RADRPT ---
EXAM DATE/TIME: 07/23/2016 12:23 [facility] COMPARISON: CHEST SINGLE AP, June 01, 2016, 5:33. INDICATIONS : Cough MEDICAL HISTORY : None. SURGICAL HISTORY : None. ENCOUNTER: Initial ACUITY: 2 days PAIN SCORE: Non-responsive. LOCATION: Bilateral chest FINDINGS: There is an [id number] in the left chest. The catheter tip overlies the SVC. The lungs are clear. Heart normal in size. The bony structures are intact. CONCLUSION: 1. No acute cardiopulmonary findings. Stable examination compared to the previous. Damion Avalos MD on July 23, 2016 at 13:00 Board Certified Radiologist. This report was verified electronically.
[2016-07-24] VITALS: BP 116/69; PULSE 100; RESP 19; TEMP 97.5; O2SAT 97
[2016-07-24 04:00] VITALS: BP 124/82; PULSE 99; RESP 15; TEMP 97; O2SAT 100
[2016-07-24] MEDS: POTASSIUM PHOSPHATE/SODIUM PHOSPHATE 250 MG TAB PO SCH ×4 (06:22→23:26)
[2016-07-24] MEDS: FREE WATER G-TUBE SCH ×3 (06:22→23:04)
[2016-07-24] MEDS: diphenhydrAMINE HCL 25 MG CAP PO PRN ×2 (06:22→23:05)
[2016-07-24 08:01] VITALS: BP 122/72; PULSE 98; RESP 18; TEMP 97.5; O2SAT 99
[2016-07-24] MEDS: SODIUM CHLORIDE 0.9% FLUSH 5 ML FLUSH IV FLUSH SCH ×2 (09:00→23:04)
[2016-07-24] MEDS: CALAMINE/PRAMOXINE LOTION 180 ML BTL TOPICAL SCH ×2 (09:00→23:04)
[2016-07-24] MEDS: BACITRACIN TOP OINT 15 GM TUBE TOP SCH ×2 (09:00→23:03)
[2016-07-24] MEDS: COLLAGENASE OINT 30 GM TUBE TOP SCH (09:00)
[2016-07-24] MEDS: LISINOPRIL 10 MG TAB PO SCH ×2 (09:33→23:03)
[2016-07-24] MEDS: MULTIVITAMINS LIQUID 5 ML UDC PO SCH (09:33)
[2016-07-24] MEDS: DILTIAZEM HCL 60 MG TAB PO SCH ×4 (09:34→23:03)
[2016-07-24] MEDS: hydrOXYzine PAMOATE 25 MG CAP PO SCH ×3 (09:34→18:00)
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
[2016-07-24 12:07] VITALS: BP 120/63; PULSE 88; RESP 18; TEMP 97.8; O2SAT 97
[2016-07-24] MEDS: ENOXAPARIN SODIUM 40 MG/0.4 ML SYRINGE SQ SCH (14:00)
[2016-07-24 15:33] VITALS: BP 117/95; PULSE 95; RESP 19; TEMP 97.3; O2SAT 97
[2016-07-24 20:00] VITALS: BP 102/58; PULSE 76; RESP 18; TEMP 98.1; O2SAT 93
[2016-07-25 00:01] VITALS: BP 99/58; PULSE 80; RESP 18; TEMP 98.4; O2SAT 94
[2016-07-25 04:19] VITALS: BP 110/68; PULSE 87; RESP 20; TEMP 97.8; O2SAT 95
[2016-07-25] MEDS: FREE WATER G-TUBE SCH ×3 (06:00→21:00)
[2016-07-25] MEDS: POTASSIUM PHOSPHATE/SODIUM PHOSPHATE 250 MG TAB PO SCH ×2 (06:07→12:00)
[2016-07-25 08:04] VITALS: BP 112/55; PULSE 100; RESP 20; TEMP 98.1; O2SAT 98
[2016-07-25] MEDS: SODIUM CHLORIDE 0.9% FLUSH 5 ML FLUSH IV FLUSH SCH ×2 (09:00→21:00)
[2016-07-25] MEDS: DILTIAZEM HCL 60 MG TAB PO SCH ×3 (09:00→21:00)
[2016-07-25] MEDS: CALAMINE/PRAMOXINE LOTION 180 ML BTL TOPICAL SCH ×2 (09:00→21:00)
[2016-07-25] MEDS: COLLAGENASE OINT 30 GM TUBE TOP SCH (09:00)
[2016-07-25] MEDS: MULTIVITAMINS LIQUID 5 ML UDC PO SCH (09:00)
[2016-07-25] MEDS: BACITRACIN TOP OINT 15 GM TUBE TOP SCH ×2 (09:00→21:00)
[2016-07-25] MEDS: LISINOPRIL 10 MG TAB PO SCH ×2 (09:00→21:00)
[2016-07-25] MEDS: hydrOXYzine PAMOATE 25 MG CAP PO SCH ×2 (09:00→13:00)
[2016-07-25 12:04] VITALS: BP 114/56; PULSE 98; RESP 20; TEMP 98.2; O2SAT 98
[2016-07-25] MEDS: ENOXAPARIN SODIUM 40 MG/0.4 ML SYRINGE SQ SCH (14:00)
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
[2016-07-25 16:04] VITALS: PULSE 98; RESP 19; TEMP 98.1; O2SAT 98
[2016-07-25 20:00] VITALS: BP 102/59; PULSE 71; RESP 20; TEMP 97.3; O2SAT 96
[2016-07-26] VITALS: BP 114/65; PULSE 71; RESP 20; TEMP 97.2; O2SAT 98
[2016-07-26] MEDS: POTASSIUM PHOSPHATE/SODIUM PHOSPHATE 250 MG TAB PO SCH ×5 (01:26→22:32)
[2016-07-26 04:00] VITALS: BP 110/64; PULSE 90; RESP 20; TEMP 97.3; O2SAT 98
[2016-07-26] MEDS: FREE WATER G-TUBE SCH ×3 (05:40→22:00)
[2016-07-26 08:00] VITALS: BP 119/59; PULSE 89; RESP 18; TEMP 97.6; O2SAT 98
[2016-07-26] MEDS: COLLAGENASE OINT 30 GM TUBE TOP SCH (09:00)
[2016-07-26] MEDS: hydrOXYzine PAMOATE 25 MG CAP PO SCH ×4 (09:00→17:15)
[2016-07-26] MEDS: CALAMINE/PRAMOXINE LOTION 180 ML BTL TOPICAL SCH ×2 (09:00→21:00)
[2016-07-26] MEDS: SODIUM CHLORIDE 0.9% FLUSH 5 ML FLUSH IV FLUSH SCH ×2 (10:06→22:32)
[2016-07-26] MEDS: LISINOPRIL 10 MG TAB PO SCH ×2 (10:06→21:00)
[2016-07-26] MEDS: MULTIVITAMINS LIQUID 5 ML UDC PO SCH (10:06)
[2016-07-26] MEDS: DILTIAZEM HCL 60 MG TAB PO SCH ×4 (10:06→21:00)
[2016-07-26] MEDS: BACITRACIN TOP OINT 15 GM TUBE TOP SCH ×2 (10:18→21:00)
[2016-07-26 12:00] VITALS: BP 101/57; PULSE 90; RESP 18; TEMP 97.7; O2SAT 93
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
[2016-07-26] MEDS: ENOXAPARIN SODIUM 40 MG/0.4 ML SYRINGE SQ SCH (15:03)
[2016-07-26 16:00] VITALS: BP 95/61; PULSE 100; RESP 18; TEMP 97; O2SAT 94
[2016-07-26 20:00] VITALS: BP 105/59; PULSE 94; RESP 18; TEMP 99.3; O2SAT 98
[2016-07-27] VITALS: BP 107/58; PULSE 91; RESP 18; TEMP 98.6; O2SAT 95
[2016-07-27 04:00] VITALS: BP 98/66; PULSE 18; RESP 18; TEMP 99.4; O2SAT 96
[2016-07-27] MEDS: POTASSIUM PHOSPHATE/SODIUM PHOSPHATE 250 MG TAB PO SCH ×4 (05:16→23:25)
[2016-07-27] MEDS: FREE WATER G-TUBE SCH ×3 (06:00→22:00)
[2016-07-27 08:00] VITALS: BP 93/52; PULSE 99; RESP 18; TEMP 96.2; O2SAT 99
[2016-07-27] MEDS: BACITRACIN TOP OINT 15 GM TUBE TOP SCH ×2 (09:00→21:00)
[2016-07-27] MEDS: COLLAGENASE OINT 30 GM TUBE TOP SCH (09:00)
[2016-07-27] MEDS: hydrOXYzine PAMOATE 25 MG CAP PO SCH ×3 (09:00→18:00)
[2016-07-27] MEDS: CALAMINE/PRAMOXINE LOTION 180 ML BTL TOPICAL SCH ×2 (09:00→21:00)
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
[2016-07-27] MEDS: MULTIVITAMINS LIQUID 5 ML UDC PO SCH (10:04)
[2016-07-27] MEDS: DILTIAZEM HCL 60 MG TAB PO SCH ×4 (10:04→21:00)
[2016-07-27] MEDS: LISINOPRIL 10 MG TAB PO SCH ×2 (10:04→21:00)
[2016-07-27] MEDS: SODIUM CHLORIDE 0.9% FLUSH 5 ML FLUSH IV FLUSH SCH ×2 (10:05→23:26)
[2016-07-27 12:00] VITALS: BP 117/61; PULSE 95; RESP 18; TEMP 95.8; O2SAT 99
[2016-07-27] MEDS: ENOXAPARIN SODIUM 40 MG/0.4 ML SYRINGE SQ SCH (13:21)
[2016-07-27 16:00] VITALS: BP 120/74; PULSE 92; RESP 18; TEMP 98.2; O2SAT 99
[2016-07-27 20:00] VITALS: BP 106/59; PULSE 78; RESP 20; TEMP 98.6; O2SAT 99
[2016-07-28] VITALS: BP 98/55; PULSE 81; RESP 20; TEMP 98; O2SAT 96
[2016-07-28 04:00] VITALS: BP 101/51; PULSE 102; RESP 20; TEMP 98.4; O2SAT 98
[2016-07-28] MEDS: FREE WATER G-TUBE SCH ×3 (05:41→23:43)
[2016-07-28] MEDS: POTASSIUM PHOSPHATE/SODIUM PHOSPHATE 250 MG TAB PO SCH ×3 (05:41→16:42)
[2016-07-28 08:00] VITALS: BP 93/58; PULSE 97; RESP 20; TEMP 98.7; O2SAT 94
[2016-07-28] MEDS: DILTIAZEM HCL 60 MG TAB PO SCH ×4 (09:00→21:00)
[2016-07-28] MEDS: COLLAGENASE OINT 30 GM TUBE TOP SCH (09:00)
[2016-07-28] MEDS: LISINOPRIL 10 MG TAB PO SCH ×2 (09:00→21:00)
[2016-07-28] MEDS: MULTIVITAMINS LIQUID 5 ML UDC PO SCH (09:44)
[2016-07-28] MEDS: CALAMINE/PRAMOXINE LOTION 180 ML BTL TOPICAL SCH ×2 (09:45→23:43)
[2016-07-28] MEDS: hydrOXYzine PAMOATE 25 MG CAP PO SCH ×3 (09:45→16:42)
[2016-07-28] MEDS: BACITRACIN TOP OINT 15 GM TUBE TOP SCH ×2 (09:45→23:43)
[2016-07-28] MEDS: SODIUM CHLORIDE 0.9% FLUSH 5 ML FLUSH IV FLUSH SCH ×2 (09:46→23:42)
[2016-07-28 12:00] VITALS: BP 103/58; PULSE 102; RESP 20; TEMP 98.8; O2SAT 96
[2016-07-28] MEDS: ENOXAPARIN SODIUM 40 MG/0.4 ML SYRINGE SQ SCH (13:09)
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
[2016-07-28] MEDS ORDERED: PERMETHRIN 5% CREAM 60 GM TOPICAL ONE (15:00)
[2016-07-28 16:00] VITALS: BP 116/61; PULSE 107; RESP 20; TEMP 98.3; O2SAT 97
[2016-07-28 20:00] VITALS: BP 103/58; PULSE 80; RESP 18; TEMP 98.1; O2SAT 95
[2016-07-29 00:10] VITALS: BP 118/63; PULSE 89; RESP 20; TEMP 97.3; O2SAT 94
[2016-07-29] MEDS: POTASSIUM PHOSPHATE/SODIUM PHOSPHATE 250 MG TAB PO SCH ×5 (01:37→22:46)
[2016-07-29 04:00] VITALS: BP 118/63; PULSE 89; RESP 20; TEMP 97.3; O2SAT 94
[2016-07-29] MEDS: FREE WATER G-TUBE SCH ×3 (06:11→22:46)
[2016-07-29 08:00] VITALS: BP 131/67; PULSE 104; RESP 16; TEMP 98.1; O2SAT 96
[2016-07-29] MEDS: COLLAGENASE OINT 30 GM TUBE TOP SCH (09:00)
[2016-07-29] MEDS: LISINOPRIL 10 MG TAB PO SCH ×2 (10:38→22:45)
[2016-07-29] MEDS: DILTIAZEM HCL 60 MG TAB PO SCH ×4 (10:38→22:45)
[2016-07-29] MEDS: MULTIVITAMINS LIQUID 5 ML UDC PO SCH (10:38)
[2016-07-29] MEDS: hydrOXYzine PAMOATE 25 MG CAP PO SCH ×3 (10:39→17:32)
[2016-07-29] MEDS: CALAMINE/PRAMOXINE LOTION 180 ML BTL TOPICAL SCH ×2 (10:39→21:00)
[2016-07-29] MEDS: BACITRACIN TOP OINT 15 GM TUBE TOP SCH ×2 (10:39→21:00)
[2016-07-29] MEDS: SODIUM CHLORIDE 0.9% FLUSH 5 ML FLUSH IV FLUSH SCH ×2 (10:39→21:00)
[2016-07-29 12:00] VITALS: BP 120/63; PULSE 91; RESP 20; TEMP 97.3; O2SAT 97
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
[2016-07-29] MEDS: ENOXAPARIN SODIUM 40 MG/0.4 ML SYRINGE SQ SCH (14:29)
[2016-07-29 16:00] VITALS: BP_SYST 123; BP_SYST 127; BP_DIAS 63; BP_DIAS 71; PULSE 101; PULSE 65; RESP 16; TEMP 97.7; TEMP 98; O2SAT 98; O2SAT 99
[2016-07-29 20:00] VITALS: BP 116/65; PULSE 91; RESP 18; TEMP 98.3; O2SAT 98
[2016-07-29] MEDS: diphenhydrAMINE HCL 25 MG CAP PO PRN (22:45)
[2016-07-30] VITALS: BP 108/65; PULSE 89; RESP 20; TEMP 98; O2SAT 98
[2016-07-30 04:00] VITALS: BP 124/54; PULSE 88; RESP 22; O2SAT 97
[2016-07-30] MEDS: FREE WATER G-TUBE SCH ×3 (05:58→21:12)
[2016-07-30] MEDS: POTASSIUM PHOSPHATE/SODIUM PHOSPHATE 250 MG TAB PO SCH ×4 (05:59→23:36)
[2016-07-30 08:00] VITALS: BP 131/69; PULSE 92; RESP 18; TEMP 97.6; O2SAT 98
[2016-07-30] MEDS: SODIUM CHLORIDE 0.9% FLUSH 5 ML FLUSH IV FLUSH SCH ×2 (09:00→21:00)
[2016-07-30] MEDS: hydrOXYzine PAMOATE 25 MG CAP PO SCH ×3 (09:00→17:42)
[2016-07-30] MEDS: CALAMINE/PRAMOXINE LOTION 180 ML BTL TOPICAL SCH ×2 (09:00→21:00)
[2016-07-30] MEDS: MULTIVITAMINS LIQUID 5 ML UDC PO SCH (09:30)
[2016-07-30] MEDS: LISINOPRIL 10 MG TAB PO SCH ×2 (09:30→21:12)
[2016-07-30] MEDS: DILTIAZEM HCL 60 MG TAB PO SCH ×4 (09:30→21:12)
[2016-07-30] MEDS: BACITRACIN TOP OINT 15 GM TUBE TOP SCH ×2 (09:32→21:00)
[2016-07-30] MEDS: COLLAGENASE OINT 30 GM TUBE TOP SCH (09:32)
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
[2016-07-30 12:00] VITALS: BP 120/58; PULSE 86; RESP 18; TEMP 97.7; O2SAT 98
[2016-07-30] MEDS: ENOXAPARIN SODIUM 40 MG/0.4 ML SYRINGE SQ SCH (12:55)
[2016-07-30] MEDS: diphenhydrAMINE HCL 25 MG CAP PO PRN (12:55)
[2016-07-30 16:00] VITALS: BP 115/55; PULSE 84; RESP 18; TEMP 98; O2SAT 100
[2016-07-30 20:00] VITALS: BP 109/63; PULSE 59; RESP 20; TEMP 97.9; O2SAT 96
[2016-07-31 00:07] VITALS: BP 116/51; PULSE 86; RESP 20; TEMP 97.4; O2SAT 94
[2016-07-31 04:00] VITALS: BP 117/57; PULSE 89; RESP 20; TEMP 97.8; O2SAT 93
[2016-07-31] MEDS: diphenhydrAMINE HCL 25 MG CAP PO PRN ×2 (05:22→18:09)
[2016-07-31] MEDS: FREE WATER G-TUBE SCH ×3 (05:22→20:54)
[2016-07-31] MEDS: POTASSIUM PHOSPHATE/SODIUM PHOSPHATE 250 MG TAB PO SCH ×4 (05:22→23:38)
[2016-07-31 08:00] VITALS: BP 105/70; PULSE 86; RESP 20; TEMP 96.5; O2SAT 97
[2016-07-31] MEDS: CALAMINE/PRAMOXINE LOTION 180 ML BTL TOPICAL SCH ×2 (09:00→20:54)
[2016-07-31] MEDS: hydrOXYzine PAMOATE 25 MG CAP PO SCH ×3 (09:00→18:09)
[2016-07-31] MEDS: COLLAGENASE OINT 30 GM TUBE TOP SCH (09:00)
[2016-07-31] MEDS: LISINOPRIL 10 MG TAB PO SCH ×3 (09:00→20:54)
[2016-07-31] MEDS: SODIUM CHLORIDE 0.9% FLUSH 5 ML FLUSH IV FLUSH SCH ×2 (09:00→20:54)
[2016-07-31] MEDS: BACITRACIN TOP OINT 15 GM TUBE TOP SCH ×2 (09:00→20:54)
[2016-07-31] MEDS: DILTIAZEM HCL 60 MG TAB PO SCH ×5 (09:00→20:54)
[2016-07-31] MEDS: MULTIVITAMINS LIQUID 5 ML UDC PO SCH (09:14)
[2016-07-31 12:00] VITALS: BP 138/71; PULSE 104; RESP 20; TEMP 96.4; O2SAT 100
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
[2016-07-31] MEDS: ENOXAPARIN SODIUM 40 MG/0.4 ML SYRINGE SQ SCH (13:39)
[2016-07-31 16:00] VITALS: BP 105/58; PULSE 99; RESP 20; TEMP 97.5; O2SAT 96
[2016-07-31 20:00] VITALS: BP 125/61; PULSE 103; RESP 20; TEMP 98; O2SAT 98
[2016-08-01] VITALS (7 sets, daily range): BP systolic 99–144; BP diastolic 62–63; PULSE 92–105; RESP 18–20; TEMP 97.4–98.6; O2SAT 95–100
[2016-08-01] MEDS: FREE WATER G-TUBE SCH ×3 (06:00→20:09)
[2016-08-01] MEDS: POTASSIUM PHOSPHATE/SODIUM PHOSPHATE 250 MG TAB PO SCH ×3 (06:17→18:22)
[2016-08-01] MEDS: SODIUM CHLORIDE 0.9% FLUSH 5 ML FLUSH IV FLUSH SCH ×2 (09:00→20:08)
[2016-08-01] MEDS: DILTIAZEM HCL 60 MG TAB PO SCH ×4 (09:19→20:08)
[2016-08-01] MEDS: LISINOPRIL 10 MG TAB PO SCH ×2 (09:19→20:08)
[2016-08-01] MEDS: MULTIVITAMINS LIQUID 5 ML UDC PO SCH (09:19)
[2016-08-01] MEDS: hydrOXYzine PAMOATE 25 MG CAP PO SCH ×3 (09:19→18:22)
[2016-08-01] MEDS: COLLAGENASE OINT 30 GM TUBE TOP SCH (09:20)
[2016-08-01] MEDS: BACITRACIN TOP OINT 15 GM TUBE TOP SCH ×2 (09:20→20:09)
[2016-08-01] MEDS: CALAMINE/PRAMOXINE LOTION 180 ML BTL TOPICAL SCH ×2 (09:20→20:09)
[2016-08-01] MEDS: ENOXAPARIN SODIUM 40 MG/0.4 ML SYRINGE SQ SCH (13:53)
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
[2016-08-02] VITALS (7 sets, daily range): BP systolic 85–137; BP diastolic 53–78; PULSE 92–132; RESP 18–20; TEMP 96.9–99.4; O2SAT 94–100
[2016-08-02] MEDS: POTASSIUM PHOSPHATE/SODIUM PHOSPHATE 250 MG TAB PO SCH ×5 (00:06→21:05)
[2016-08-02] MEDS: FREE WATER G-TUBE SCH ×3 (05:51→21:03)
[2016-08-02] MEDS: LISINOPRIL 10 MG TAB PO SCH ×2 (09:00→21:00)
[2016-08-02] MEDS: DILTIAZEM HCL 60 MG TAB PO SCH ×4 (09:00→21:04)
[2016-08-02] MEDS: SODIUM CHLORIDE 0.9% FLUSH 5 ML FLUSH IV FLUSH SCH ×2 (09:00→21:00)
[2016-08-02] MEDS: MULTIVITAMINS LIQUID 5 ML UDC PO SCH (09:50)
[2016-08-02] MEDS: hydrOXYzine PAMOATE 25 MG CAP PO SCH ×3 (09:50→18:49)
[2016-08-02] MEDS: COLLAGENASE OINT 30 GM TUBE TOP SCH (09:51)
[2016-08-02] MEDS: CALAMINE/PRAMOXINE LOTION 180 ML BTL TOPICAL SCH ×2 (09:52→21:00)
[2016-08-02] MEDS: BACITRACIN TOP OINT 15 GM TUBE TOP SCH ×2 (09:52→21:00)
[2016-08-02] MEDS: ENOXAPARIN SODIUM 40 MG/0.4 ML SYRINGE SQ SCH (12:29)
[2016-08-02] MEDS: RESP: ALBUTEROL 2.5 MG/IPRATROPIUM 0.5 MG NEB (PRN) INH (18:00)
[2016-08-02] MEDS ORDERED: SODIUM CHLOR 0.9% 250 ML INJ 250 ML IV PRN (18:15)
[2016-08-02] MEDS ORDERED: SODIUM CHLOR 0.9% 250 ML INJ 250 ML IV ONE (18:15)
[2016-08-03] VITALS (7 sets, daily range): BP systolic 81–150; BP diastolic 49–76; PULSE 82–116; RESP 18–24; TEMP 97.3–98; O2SAT 94–100
[2016-08-03] MEDS: POTASSIUM PHOSPHATE/SODIUM PHOSPHATE 250 MG TAB PO SCH ×3 (05:22→17:07)
[2016-08-03] MEDS: FREE WATER G-TUBE SCH ×3 (05:22→22:00)
[2016-08-03 08:21] LABS: BICARBONATE 29.5 MEQ/L (21.0-32.0); POTASSIUM 3.9 MEQ/L (3.5-5.1)
[2016-08-03] MEDS: SODIUM CHLORIDE 0.9% FLUSH 5 ML FLUSH IV FLUSH SCH ×2 (09:45→22:23)
[2016-08-03] MEDS: DILTIAZEM HCL 60 MG TAB PO SCH ×4 (09:46→22:23)
[2016-08-03] MEDS: hydrOXYzine PAMOATE 25 MG CAP PO SCH ×3 (09:47→17:07)
[2016-08-03] MEDS: LISINOPRIL 10 MG TAB PO SCH ×2 (09:47→22:30)
[2016-08-03] MEDS: MULTIVITAMINS LIQUID 5 ML UDC PO SCH (09:47)
[2016-08-03] MEDS: BACITRACIN TOP OINT 15 GM TUBE TOP SCH ×2 (09:47→22:26)
[2016-08-03] MEDS: COLLAGENASE OINT 30 GM TUBE TOP SCH (09:48)
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
[2016-08-03] MEDS: ENOXAPARIN SODIUM 40 MG/0.4 ML SYRINGE SQ SCH (14:02)
[2016-08-03] MEDS: diphenhydrAMINE HCL 25 MG CAP PO PRN (22:30)
[2016-08-04] VITALS: BP 105/57; PULSE 86; RESP 20; TEMP 98.2; O2SAT 98
[2016-08-04] MEDS: POTASSIUM PHOSPHATE/SODIUM PHOSPHATE 250 MG TAB PO SCH ×4 (01:37→18:28)
[2016-08-04 04:00] VITALS: BP 106/69; PULSE 96; RESP 20; TEMP 97.8; O2SAT 97
[2016-08-04] MEDS: diphenhydrAMINE HCL 25 MG CAP PO PRN ×2 (05:47→18:28)
[2016-08-04] MEDS: FREE WATER G-TUBE SCH ×3 (06:00→21:06)
[2016-08-04 08:00] VITALS: BP 108/55; PULSE 85; RESP 22; TEMP 98.4; O2SAT 98
[2016-08-04] MEDS: SODIUM CHLORIDE 0.9% FLUSH 5 ML FLUSH IV FLUSH SCH ×2 (09:00→21:05)
[2016-08-04] MEDS: DILTIAZEM HCL 60 MG TAB PO SCH ×4 (10:53→21:05)
[2016-08-04] MEDS: CALAMINE/PRAMOXINE LOTION 180 ML BTL TOPICAL SCH ×3 (10:53→21:00)
[2016-08-04] MEDS: hydrOXYzine PAMOATE 25 MG CAP PO SCH ×3 (10:53→18:28)
[2016-08-04] MEDS: BACITRACIN TOP OINT 15 GM TUBE TOP SCH ×2 (10:54→21:00)
[2016-08-04] MEDS: LISINOPRIL 10 MG TAB PO SCH ×2 (10:54→21:05)
[2016-08-04] MEDS: MULTIVITAMINS LIQUID 5 ML UDC PO SCH (10:54)
[2016-08-04] MEDS: COLLAGENASE OINT 30 GM TUBE TOP SCH (10:54)
[2016-08-04 12:00] VITALS: BP 110/56; PULSE 84; RESP 24; TEMP 98.6; O2SAT 98
[2016-08-04] MEDS: ENOXAPARIN SODIUM 40 MG/0.4 ML SYRINGE SQ SCH (13:47)
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
[2016-08-04 16:00] VITALS: BP 108/54; PULSE 86; RESP 24; TEMP 98.2; O2SAT 98
--- NOTE | 2016-08-04 16:22 | PD.CONS ---
Provisional Diagnosis Admission Date May 31, 2016 at 15:10 History of Present Illness Service Psychiatry Consult Requested By Primary Care Physician Unknown Past Family Social History Coded Allergies: MRI PRECAUTION (Verified Adverse Reaction, Severe, ANEURYSM CLIP PER DR. 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 Reported Medications Albuterol 18 GM Inh (Ventolin Hfa 18 GM Inh)90 Mcg/Act Aer2 Puff INH Q6H PRN ( SHORTNESS OF BREATH) #1 INHALER Ref 0 06/22/16 Metoprolol Tartrate 100 Mg [id number] Mg PO BID #60 TAB Ref 0 06/22/16 Current Medications Medications (Trade) Dose Ordered Sig/Cesar Route Start Time Stop Time Status Last Admin (D50w (Vial) Inj) 25 ml UNSCH PRN IV PUSH 05/31/16 15:30 (Lactulose Liq) 30 ml BID PO 05/31/16 21:00 Hold (NS Flush) 2 ml UNSCH PRN IV FLUSH 05/31/16 15:30 06/15/16 05:04 (NS Flush) 2 ml BID IV FLUSH 05/31/16 21:00 08/04/16 09:00 (Zofran Inj) 4 mg Q6H PRN IV 05/31/16 15:30 (Cardizem) 60 mg QID PO 06/02/16 09:00 08/04/16 13:46 (Cyndee-Colace) 1 tab BID PRN PO 06/06/16 10:15 (Lopressor) 100 mg BID PO 06/07/16 21:00 Hold 07/09/16 22:17 (K-Phos Neutral) 250 mg Q6HR PO 06/10/16 20:15 08/04/16 13:46 (Vasotec Inj) 1.25 mg Q6H PRN IV 06/11/16 13:15 06/26/16 15:54 (Santyl Oint) 1 applic DAILY TOP 06/18/16 12:15 08/04/16 10:54 (Theragran Liq) 5 ml DAILY PO 06/20/16 09:00 08/04/16 10:54 (Vistaril) 25 mg TID PO 06/21/16 18:00 08/04/16 13:46 (Prinivil) 10 mg BID PO 06/26/16 21:00 08/04/16 10:54 (Eucerin Cream) 1 applic Q6H PRN TOPICAL 06/29/16 15:00 07/23/16 08:58 (Baciguent Oint) 1 applic Q12HR TOP 07/04/16 21:00 08/04/16 10:54 (Benadryl) 25 mg Q8HR PRN PO 07/04/16 09:45 08/04/16 05:47 (Free Water) 200 ml Q8HR G-TUBE 07/11/16 22:00 08/04/16 13:47 (Emla Cream) 1 applic UNSCH PRN TOPICAL 07/18/16 09:45 (Lovenox Inj) 40 mg Q24H SQ 07/21/16 14:00 08/04/16 13:47 (Caladryl Lotion) 1 applic Q12HR TOPICAL 07/22/16 21:00 08/04/16 11:04 Physical Exam Vital Signs Vital Signs Date Time Temp Pulse Resp B/P Pulse Ox O2 Delivery O2 Flow Rate FiO2 08/04/16 12:00 98.6 84 24 110/56 98 08/03/16 20:00 Nasal Cannula 2.00 21 I/O 08/03/16 08/03/16 08/04/16 08:00 16:00 00:00 Intake Total 100 ml 50 ml 1084 ml Output Total 250 ml 295 ml 180 ml Balance -150 ml -245 ml 904 ml Assessment & Plan Problem List: (1) COPD (chronic obstructive pulmonary disease) Assessment & Plan: Consults for capacity needs to be medically oriented and and specific for situations. Unfortunately, we do not have the power to do consults for competency, which is a legal matter and needs to be done by a bankruptcy judge , and we can't do capacity for financial situations. If what you need is to assess mental capacity for medical decision, such as capacity to refuse medication, or capacity to leave AMA, or capacity to participate in treatment plan, we will happily perform the assessment for you. My telephone number and I would be more than happy to answer any further question you might have. Thanks!! ICD Code: J44.9 Assessment & Plan Estimated LOS: days Justification for Cont. Inpt. No hospitalization indicated Sarwat Morin MD Aug 04, 2016 16:22
[2016-08-04 20:00] VITALS: BP 90/67; PULSE 88; RESP 17; TEMP 97.8; O2SAT 96
[2016-08-05 00:01] VITALS: BP 110/58; PULSE 92; RESP 16; TEMP 97.8; O2SAT 97
[2016-08-05 04:00] VITALS: BP 100/58; PULSE 92; RESP 16; TEMP 98.6; O2SAT 97
[2016-08-05] MEDS: FREE WATER G-TUBE SCH ×3 (06:00→22:00)
[2016-08-05] MEDS: POTASSIUM PHOSPHATE/SODIUM PHOSPHATE 250 MG TAB PO SCH ×5 (06:53→23:51)
[2016-08-05 08:09] VITALS: BP 128/66; PULSE 107; RESP 20; TEMP 98.2; O2SAT 96
[2016-08-05] MEDS: SODIUM CHLORIDE 0.9% FLUSH 5 ML FLUSH IV FLUSH SCH ×2 (09:00→22:35)
[2016-08-05] MEDS: LISINOPRIL 10 MG TAB PO SCH ×2 (10:13→22:35)
[2016-08-05] MEDS: MULTIVITAMINS LIQUID 5 ML UDC PO SCH (10:13)
[2016-08-05] MEDS: hydrOXYzine PAMOATE 25 MG CAP PO SCH ×3 (10:13→17:55)
[2016-08-05] MEDS: DILTIAZEM HCL 60 MG TAB PO SCH ×4 (10:13→22:35)
[2016-08-05] MEDS: BACITRACIN TOP OINT 15 GM TUBE TOP SCH ×2 (10:14→21:00)
[2016-08-05] MEDS: CALAMINE/PRAMOXINE LOTION 180 ML BTL TOPICAL SCH ×2 (10:14→21:00)
[2016-08-05] MEDS: COLLAGENASE OINT 30 GM TUBE TOP SCH (10:14)
[2016-08-05 12:04] VITALS: BP 103/57; PULSE 100; RESP 19; TEMP 98.5; O2SAT 96
[2016-08-05] MEDS: ENOXAPARIN SODIUM 40 MG/0.4 ML SYRINGE SQ SCH (13:40)
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
[2016-08-05 16:09] VITALS: BP 113/59; PULSE 97; RESP 19; TEMP 98; O2SAT 97
[2016-08-05 20:00] VITALS: BP 139/68; PULSE 98; RESP 17; TEMP 97.6; O2SAT 93
[2016-08-05] MEDS: diphenhydrAMINE HCL 25 MG CAP PO PRN (22:35)
[2016-08-06] VITALS (7 sets, daily range): BP systolic 103–139; BP diastolic 58–76; PULSE 90–105; RESP 18–20; TEMP 97.1–97.7; O2SAT 92–100
[2016-08-06] MEDS: FREE WATER G-TUBE SCH ×3 (04:56→22:27)
[2016-08-06] MEDS: POTASSIUM PHOSPHATE/SODIUM PHOSPHATE 250 MG TAB PO SCH ×4 (04:57→22:25)
[2016-08-06] MEDS: CALAMINE/PRAMOXINE LOTION 180 ML BTL TOPICAL SCH ×2 (09:00→22:26)
[2016-08-06] MEDS: BACITRACIN TOP OINT 15 GM TUBE TOP SCH ×2 (09:00→22:26)
[2016-08-06] MEDS: COLLAGENASE OINT 30 GM TUBE TOP SCH (09:00)
[2016-08-06] MEDS: SODIUM CHLORIDE 0.9% FLUSH 5 ML FLUSH IV FLUSH SCH ×2 (09:00→22:24)
[2016-08-06] MEDS: DILTIAZEM HCL 60 MG TAB PO SCH ×4 (09:48→22:25)
[2016-08-06] MEDS: MULTIVITAMINS LIQUID 5 ML UDC PO SCH (09:48)
[2016-08-06] MEDS: hydrOXYzine PAMOATE 25 MG CAP PO SCH ×3 (09:48→17:37)
[2016-08-06] MEDS: LISINOPRIL 10 MG TAB PO SCH ×2 (09:48→21:00)
[2016-08-06] MEDS: ENOXAPARIN SODIUM 40 MG/0.4 ML SYRINGE SQ SCH (15:39)
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
[2016-08-06] MEDS: diphenhydrAMINE HCL 25 MG CAP PO PRN (22:25)
[2016-08-07 00:16] VITALS: BP 103/60; PULSE 96; RESP 18; TEMP 97.7; O2SAT 97
[2016-08-07 05:07] VITALS: BP 118/62; PULSE 94; RESP 18; TEMP 97.4; O2SAT 100
[2016-08-07] MEDS: POTASSIUM PHOSPHATE/SODIUM PHOSPHATE 250 MG TAB PO SCH ×3 (05:47→16:53)
[2016-08-07] MEDS: FREE WATER G-TUBE SCH ×3 (05:47→22:22)
[2016-08-07 08:00] VITALS: BP 131/57; PULSE 95; RESP 20; TEMP 97.5; O2SAT 96
[2016-08-07] MEDS: SODIUM CHLORIDE 0.9% FLUSH 5 ML FLUSH IV FLUSH SCH ×2 (09:00→22:21)
[2016-08-07] MEDS: COLLAGENASE OINT 30 GM TUBE TOP SCH (09:00)
[2016-08-07] MEDS: DILTIAZEM HCL 60 MG TAB PO SCH ×4 (11:49→22:20)
[2016-08-07] MEDS: LISINOPRIL 10 MG TAB PO SCH ×2 (11:49→22:20)
[2016-08-07] MEDS: hydrOXYzine PAMOATE 25 MG CAP PO SCH ×3 (11:49→16:53)
[2016-08-07] MEDS: MULTIVITAMINS LIQUID 5 ML UDC PO SCH (11:49)
[2016-08-07] MEDS: BACITRACIN TOP OINT 15 GM TUBE TOP SCH ×2 (11:50→21:00)
[2016-08-07] MEDS: CALAMINE/PRAMOXINE LOTION 180 ML BTL TOPICAL SCH ×2 (11:50→21:00)
[2016-08-07 12:00] VITALS: BP 137/68; PULSE 98; RESP 20; TEMP 97.5; O2SAT 97
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
[2016-08-07] MEDS ORDERED: PERMETHRIN 5% CREAM 60 GM TOPICAL ONE (12:45)
[2016-08-07 16:00] VITALS: BP 132/58; PULSE 97; RESP 20; TEMP 97.6; O2SAT 97
[2016-08-07] MEDS: ENOXAPARIN SODIUM 40 MG/0.4 ML SYRINGE SQ SCH (16:53)
[2016-08-07 21:48] VITALS: BP 116/75; PULSE 96; RESP 18; TEMP 97.4; O2SAT 97
[2016-08-08 00:17] VITALS: BP 112/56; PULSE 101; RESP 18; TEMP 97.4; O2SAT 98
[2016-08-08] MEDS: POTASSIUM PHOSPHATE/SODIUM PHOSPHATE 250 MG TAB PO SCH ×4 (00:35→17:55)
[2016-08-08 03:53] VITALS: BP_SYST 73; PULSE 104; RESP 18; TEMP 97.7; O2SAT 99
[2016-08-08] MEDS: FREE WATER G-TUBE SCH ×3 (05:16→21:29)
[2016-08-08] MEDS: diphenhydrAMINE HCL 25 MG CAP PO PRN ×2 (05:16→21:27)
[2016-08-08 08:00] VITALS: BP 107/57; PULSE 100; RESP 20; TEMP 98; O2SAT 97
[2016-08-08] MEDS: MULTIVITAMINS LIQUID 5 ML UDC PO SCH (08:46)
[2016-08-08] MEDS: BACITRACIN TOP OINT 15 GM TUBE TOP SCH ×2 (08:47→21:28)
[2016-08-08] MEDS: LISINOPRIL 10 MG TAB PO SCH ×2 (08:47→21:27)
[2016-08-08] MEDS: DILTIAZEM HCL 60 MG TAB PO SCH ×6 (08:47→21:27)
[2016-08-08] MEDS: hydrOXYzine PAMOATE 25 MG CAP PO SCH ×3 (08:47→17:55)
[2016-08-08] MEDS: SODIUM CHLORIDE 0.9% FLUSH 5 ML FLUSH IV FLUSH SCH ×2 (08:47→21:28)
[2016-08-08] MEDS: CALAMINE/PRAMOXINE LOTION 180 ML BTL TOPICAL SCH ×2 (08:48→21:28)
[2016-08-08] MEDS: COLLAGENASE OINT 30 GM TUBE TOP SCH (08:48)
[2016-08-08 12:00] VITALS: BP 104/58; PULSE 94; RESP 18; TEMP 97; O2SAT 94
[2016-08-08] MEDS: ENOXAPARIN SODIUM 40 MG/0.4 ML SYRINGE SQ SCH (14:42)
[2016-08-08 16:00] VITALS: BP 115/73; PULSE 101; RESP 18; TEMP 98.3; O2SAT 98
--- NOTE | 2016-08-08 16:11 | HHI.IDPN ---
Subjective Subjective Remarks I was reconsulted 2/ persistent pruritic rash records reviewed Pt was treated with Permethin 07/28 last time She is afebrile cont to scratch Allergies: Coded Allergies: MRI PRECAUTION (Verified Adverse Reaction, Severe, ANEURYSM CLIP PER DR. [id number]-09/08/09, 05/31/16) *MDRO Multi-Drug Resistant Organism (Verified Adverse Reaction, Unknown, 06/10/16) MRSA (sputum) - 10/2004 & 11/2004 Objective . Vital Signs Date Time Temp Pulse Resp B/P Pulse Ox O2 Delivery O2 Flow Rate FiO2 08/08/16 12:00 97.0 94 18 104/58 94 08/08/16 08:00 98.0 100 20 107/57 97 08/08/16 08:00 Nasal Cannula 3.00 08/08/16 03:53 97.7 104 18 73/ 99 08/08/16 00:17 97.4 101 18 112/56 98 08/07/16 21:48 97.4 96 18 116/75 97 08/07/16 20:00 Room Air 08/07/16 08/07/16 08/08/16 14:59 22:59 06:59 Intake Total 1112 ml 0 ml 0 ml Output Total 400 ml 200 ml Balance 1112 ml -400 ml -200 ml Intake Oral 0 ml 0 ml Tube Feeding 912 ml Other 200 ml Output Urine Total 400 ml 200 ml # Bowel Movements 0 0 Imaging Last Impressions Chest X-Ray 06/01/16 0600 Signed Impressions: Service Date/Time: Wednesday, June 01, 2016 05:33 - CONCLUSION: Minimal patchy bilateral lower lung zone atelectasis. Rony Espinoza MD Lower Extremity Ultrasound 06/01/16 0000 Signed Impressions: Service Date/Time: Wednesday, June 01, 2016 02:44 - CONCLUSION: No evidence of lower extremity DVT on the right or left. Rony Espinoza MD Head CT 05/31/16 0000 Signed Impressions: Service Date/Time: Tuesday, May 31, 2016 11:51 - CONCLUSION: 1. 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 2. Negative for an acute process. Vinay Avalos MD FACR Physical Exam CONSTITUTIONAL/GENERAL: This is an adequately nourished patient, in no apparent distress. Vigorously sctaching L side of the neck, no lesions noted SKIN: No jaundice, Scattere excoriations and scattered polimorphic lesions including patches of purple discoloration , lichenifications and few maculas CARDIOVASCULAR: Regular rate and rhythm without murmurs, gallops, or rubs. No JVD. Peripheral pulses symmetric. Pt has PORT in L chest with palpable cor, no erythema, no edema or fluctuance RESPIRATORY/CHEST: Symmetric, unlabored respirations. Clear to auscultation. Breath sounds equal bilaterally. No wheezes, rales, or rhonchi. GASTROINTESTINAL: Abdomen soft, non-tender, nondistended. No hepato-splenomegaly , or palpable masses. No guarding. Bowel sounds present. Stoma in place LLQ with light brown stool GENITOURINARY: Without palpable bladder distension. [facility] catheter in place. MUSCULOSKELETAL: Extremities without clubbing, cyanosis, resolving edema. NEUROLOGICAL: Awake and alert. Aphasic Makes eye contat. Moves all extremities. Non verbal Assessment & Plan Remarks Sepsis - resolved Neglect Unstagible decub with eschars Multiple excoriations with some superficial infection vs port of entry for sepsis sp colostomy. Diarrhea, abx associated Elevated LFTs - HCV+ Itching - sp empitic elimite tx x 2 Abx associated diarrhea - stool negative for C.diff Repeat Permethin on 08/11 (2 weeks from the last tx) - scrapping if cont to itch - if scrappings negative will need skin bx Lanette Adames MD Aug 08, 2016 16:11
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
[2016-08-08] MEDS: BETAMETHASONE DIPROPIONATE 0.05% CREAM 15 GM TOPICAL SCH (21:28)
[2016-08-08 21:42] VITALS: BP 114/76; PULSE 99; RESP 18; TEMP 97.5; O2SAT 100
[2016-08-09 00:42] VITALS: BP 119/62; PULSE 72; RESP 20; TEMP 97.6; O2SAT 100
[2016-08-09] MEDS: POTASSIUM PHOSPHATE/SODIUM PHOSPHATE 250 MG TAB PO SCH ×4 (01:38→17:17)
[2016-08-09 05:50] VITALS: BP 104/71; PULSE 106; RESP 24; TEMP 97.4; O2SAT 95
[2016-08-09] MEDS: FREE WATER G-TUBE SCH ×3 (06:17→22:00)
[2016-08-09 08:00] VITALS: BP 118/63; PULSE 110; RESP 18; TEMP 97; O2SAT 93
[2016-08-09] MEDS: SODIUM CHLORIDE 0.9% FLUSH 5 ML FLUSH IV FLUSH SCH ×2 (09:00→21:00)
[2016-08-09] MEDS: COLLAGENASE OINT 30 GM TUBE TOP SCH (09:00)
[2016-08-09] MEDS: MULTIVITAMINS LIQUID 5 ML UDC PO SCH (09:28)
[2016-08-09] MEDS: hydrOXYzine PAMOATE 25 MG CAP PO SCH ×3 (09:29→17:21)
[2016-08-09] MEDS: LISINOPRIL 10 MG TAB PO SCH ×2 (09:29→22:22)
[2016-08-09] MEDS: BACITRACIN TOP OINT 15 GM TUBE TOP SCH ×2 (09:29→22:23)
[2016-08-09] MEDS: DILTIAZEM HCL 60 MG TAB PO SCH ×4 (09:29→22:22)
[2016-08-09] MEDS: BETAMETHASONE DIPROPIONATE 0.05% CREAM 15 GM TOPICAL SCH ×2 (09:30→21:00)
[2016-08-09] MEDS: CALAMINE/PRAMOXINE LOTION 180 ML BTL TOPICAL SCH ×2 (09:30→22:23)
[2016-08-09 12:00] VITALS: BP 120/71; PULSE 99; RESP 20; TEMP 97; O2SAT 94
[2016-08-09] MEDS: ENOXAPARIN SODIUM 40 MG/0.4 ML SYRINGE SQ SCH (12:42)
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
[2016-08-09 16:00] VITALS: BP 109/64; PULSE 101; RESP 20; TEMP 97.8; O2SAT 94
[2016-08-09] MEDS: predniSONE 50 MG TAB PO SCH (17:21)
[2016-08-09 20:15] VITALS: BP 129/74; PULSE 96; RESP 18; TEMP 97.3; O2SAT 98
[2016-08-10] VITALS: BP 145/78; PULSE 103; RESP 20; TEMP 97.4; O2SAT 98
[2016-08-10] MEDS: POTASSIUM PHOSPHATE/SODIUM PHOSPHATE 250 MG TAB PO SCH ×5 (01:14→23:10)
[2016-08-10 04:00] VITALS: BP 132/68; PULSE 87; RESP 20; TEMP 97.4; O2SAT 98
[2016-08-10] MEDS: FREE WATER G-TUBE SCH ×3 (06:00→22:00)
[2016-08-10 07:55] LABS: AUTOMATED NEUTROPHIL # 4.2 TH/MM3 (1.8-7.7); BASOPHIL % 0.2 % (0.0-2.0); EOSINOPHIL % 0.2 % (0.0-4.0); HEMATOCRIT 29.1 % (35.0-46.0); LYMPH % 25.1 % (9.0-44.0); LYMPHOCYTE # 1.6 TH/MM3 (1.0-4.8); MEAN CELL VOLUME 84.2 FL (80.0-100.0); MEAN CORPUSCULAR HGB CONC 32.1 % (32.0-36.0); MONO % 7.3 % (0.0-8.0); NEUT % 67.2 % (16.0-70.0); PLATELET COUNT 335 TH/MM3 (150-450); RED BLOOD COUNT 3.46 MIL/MM3 (4.00-5.30); RED CELL DISTRIBUTION WIDTH 19.3 % (11.6-17.2); WHITE BLOOD COUNT 6.3 TH/MM3 (4.0-11.0)
[2016-08-10 08:00] VITALS: BP 127/79; PULSE 84; RESP 20; TEMP 97.4; O2SAT 100
[2016-08-10 08:22] LABS: HEMO FLAGS AUTO DIFF
[2016-08-10] MEDS: SODIUM CHLORIDE 0.9% FLUSH 5 ML FLUSH IV FLUSH SCH ×2 (09:00→21:00)
[2016-08-10] MEDS: COLLAGENASE OINT 30 GM TUBE TOP SCH (09:00)
[2016-08-10] MEDS: MULTIVITAMINS LIQUID 5 ML UDC PO SCH (09:38)
[2016-08-10] MEDS: hydrOXYzine PAMOATE 25 MG CAP PO SCH ×3 (09:38→18:18)
[2016-08-10] MEDS: LISINOPRIL 10 MG TAB PO SCH ×2 (09:38→23:09)
[2016-08-10] MEDS: DILTIAZEM HCL 60 MG TAB PO SCH ×4 (09:38→23:10)
[2016-08-10] MEDS: predniSONE 50 MG TAB PO SCH (09:38)
[2016-08-10] MEDS: CALAMINE/PRAMOXINE LOTION 180 ML BTL TOPICAL SCH ×2 (09:39→21:00)
[2016-08-10] MEDS: BETAMETHASONE DIPROPIONATE 0.05% CREAM 15 GM TOPICAL SCH ×2 (09:39→21:00)
[2016-08-10] MEDS: BACITRACIN TOP OINT 15 GM TUBE TOP SCH ×2 (09:39→21:00)
[2016-08-10 10:15] LABS: SCAN/DIFF AUTO DIFF CONFIRMED
[2016-08-10 12:00] VITALS: BP 149/77; PULSE 90; RESP 20; TEMP 97.3; O2SAT 100
[2016-08-10] MEDS: ENOXAPARIN SODIUM 40 MG/0.4 ML SYRINGE SQ SCH (12:22)
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
[2016-08-10 16:00] VITALS: BP 140/78; PULSE 103; RESP 20; TEMP 97.1; O2SAT 94
[2016-08-10 21:50] VITALS: BP 123/74; PULSE 90; RESP 20; TEMP 97.4; O2SAT 93
[2016-08-11] VITALS (7 sets, daily range): BP systolic 124–163; BP diastolic 69–98; PULSE 84–97; RESP 18–20; TEMP 97.3–98.9; O2SAT 96–97
[2016-08-11] MEDS: diphenhydrAMINE HCL 25 MG CAP PO PRN (00:22)
[2016-08-11] MEDS: POTASSIUM PHOSPHATE/SODIUM PHOSPHATE 250 MG TAB PO SCH ×4 (04:56→22:12)
[2016-08-11] MEDS: FREE WATER G-TUBE SCH ×3 (06:00→22:16)
[2016-08-11] MEDS: SODIUM CHLORIDE 0.9% FLUSH 5 ML FLUSH IV FLUSH SCH ×2 (09:00→21:00)
[2016-08-11] MEDS: CALAMINE/PRAMOXINE LOTION 180 ML BTL TOPICAL SCH ×2 (09:00→22:15)
[2016-08-11] MEDS: BETAMETHASONE DIPROPIONATE 0.05% CREAM 15 GM TOPICAL SCH ×2 (09:00→22:13)
[2016-08-11] MEDS: BACITRACIN TOP OINT 15 GM TUBE TOP SCH ×2 (09:00→22:14)
[2016-08-11] MEDS: COLLAGENASE OINT 30 GM TUBE TOP SCH (09:00)
[2016-08-11] MEDS: MULTIVITAMINS LIQUID 5 ML UDC PO SCH (09:35)
[2016-08-11] MEDS: LISINOPRIL 10 MG TAB PO SCH ×2 (09:36→22:12)
[2016-08-11] MEDS: DILTIAZEM HCL 60 MG TAB PO SCH ×4 (09:36→22:54)
[2016-08-11] MEDS: hydrOXYzine PAMOATE 25 MG CAP PO SCH ×4 (09:36→22:12)
[2016-08-11] MEDS ORDERED: METOPROLOL TARTRATE 25 MG TAB PO SCH (10:00)
--- NOTE | 2016-08-11 12:43 | MB ---
cc: ANGELIQUE COOPER M.D. DATE OF CONSULTATION 08/11/2016 REASON FOR CONSULTATION Colostomy wound issue. HISTORY OF PRESENT ILLNESS Please see previous dictation on this. The patient is a very complex individual who had a CVA and was admitted in May. The patient had decubitus ulcer and the wound was slow to heal and the patient continued to have contamination on the wound from stool. The patient underwent a diverting loop colostomy on 07/23/2016 and since that time has had some mucosal separation and wound separation where the patient had previous skin incision. I have been asked to see the patient for this and assess for potential revision and reoperation or bedside fixation. PAST MEDICAL HISTORY Well documented from previously and includes - 1. Hypertension. 2. Hypercholesterolemia. 3. Hepatitis C. 4. Asthma. 5. CVA in 2007 and in 2015. PAST SURGERIES 1. Neurological surgery with clipping for aneurysm. 2. Abdominal surgery with two C-sections in the past. 3. Oral surgery. MEDICATIONS 1. Prednisone 40 mg daily. 2. Metoprolol 25 mg q.12 hours. 3. Calamine lotion q.12 hours. 4. Lovenox 40 mg subcu daily. 5. Bacitracin to wounds q. 12 hours. 6. Lisinopril 10 mg p.o. b.i.d. 7. Hydroxyzine 25 mg p.o. t.i.d. 8. Collagenase to the sacrum daily. 9. Enalapril 1.25 mg p.r.n. 10. Potassium is needed. PHYSICAL EXAMINATION General: Physical exam reveals a female who is actually able to respond but does have some slurred speech. Vitals: BP 157/77, pulse 96, respirations 19, temperature 97.3. HEENT: Sclerae anicteric. Pupils are reactive. Chest: Clear. Abdomen: There is a PEG tube in place in the left upper quadrant and a colostomy in the left lower quadrant. Under the colostomy wafer there is some separation of the patient's transverse incision with tube feeding and stool in this open area. This cannot be cleaned adequately at the bedside. There is no active infection or sepsis from this. Extremities: Both hands are mitted as the patient continues to scratch. ASSESSMENT 1. Multiple medical problems as outlined above. 2. Colostomy site with some skin separation due to the patient's poor healing from previous nutrition issues and being on steroids. PLAN Will hold Lovenox and have the patient undergo exploration under anesthesia with fixation of the skin so that a colostomy appliance can fit better. This will be accomplished on ThursdayAugust 13. We will obtain consent from the . MD WALT Linares/SSB /11:51 AM /12:35 PM
[2016-08-11] MEDS: ENOXAPARIN SODIUM 40 MG/0.4 ML SYRINGE SQ SCH (13:56)
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
[2016-08-11] MEDS: METOPROLOL TARTRATE 50 MG TAB PO SCH (22:12)
[2016-08-12] VITALS (7 sets, daily range): BP systolic 124–153; BP diastolic 74–92; PULSE 77–104; RESP 14–22; TEMP 97.9–98.2; O2SAT 95–98
[2016-08-12] MEDS: FREE WATER G-TUBE SCH ×3 (07:32→21:43)
[2016-08-12] MEDS: POTASSIUM PHOSPHATE/SODIUM PHOSPHATE 250 MG TAB PO SCH ×4 (07:32→21:41)
[2016-08-12] MEDS ORDERED: predniSONE 20 MG TAB PO SCH (09:00)
[2016-08-12] MEDS: SODIUM CHLORIDE 0.9% FLUSH 5 ML FLUSH IV FLUSH SCH ×2 (09:00→21:00)
[2016-08-12] MEDS: predniSONE 10 MG TAB PO SCH (09:25)
[2016-08-12] MEDS: LISINOPRIL 10 MG TAB PO SCH ×2 (09:25→21:41)
[2016-08-12] MEDS: METOPROLOL TARTRATE 50 MG TAB PO SCH ×2 (09:25→21:43)
[2016-08-12] MEDS: DILTIAZEM HCL 60 MG TAB PO SCH ×4 (09:25→21:41)
[2016-08-12] MEDS: BETAMETHASONE DIPROPIONATE 0.05% CREAM 15 GM TOPICAL SCH ×2 (09:26→21:42)
[2016-08-12] MEDS: CALAMINE/PRAMOXINE LOTION 180 ML BTL TOPICAL SCH ×2 (09:26→21:42)
[2016-08-12] MEDS: MULTIVITAMINS LIQUID 5 ML UDC PO SCH (09:26)
[2016-08-12] MEDS: BACITRACIN TOP OINT 15 GM TUBE TOP SCH ×2 (09:27→21:42)
[2016-08-12] MEDS: COLLAGENASE OINT 30 GM TUBE TOP SCH (09:27)
[2016-08-12] MEDS: ENOXAPARIN SODIUM 40 MG/0.4 ML SYRINGE SQ SCH (12:58)
[2016-08-12] MEDS: hydrOXYzine PAMOATE 25 MG CAP PO SCH ×2 (12:59→17:29)
[2016-08-13] VITALS (7 sets, daily range): BP systolic 110–150; BP diastolic 70–97; PULSE 74–107; RESP 18–22; TEMP 97–99.3; O2SAT 94–100
[2016-08-13] MEDS: FREE WATER G-TUBE SCH ×3 (05:37→21:58)
[2016-08-13] MEDS: POTASSIUM PHOSPHATE/SODIUM PHOSPHATE 250 MG TAB PO SCH ×3 (05:38→17:19)
[2016-08-13] MEDS: DILTIAZEM HCL 60 MG TAB PO SCH ×4 (08:13→21:57)
[2016-08-13] MEDS: METOPROLOL TARTRATE 50 MG TAB PO SCH ×2 (08:13→21:57)
[2016-08-13] MEDS: hydrOXYzine PAMOATE 25 MG CAP PO SCH ×3 (08:13→17:19)
[2016-08-13] MEDS: predniSONE 10 MG TAB PO SCH (08:13)
[2016-08-13] MEDS: MULTIVITAMINS LIQUID 5 ML UDC PO SCH (08:13)
[2016-08-13] MEDS: LISINOPRIL 10 MG TAB PO SCH ×2 (08:13→21:57)
[2016-08-13] MEDS: BACITRACIN TOP OINT 15 GM TUBE TOP SCH ×2 (08:14→21:59)
[2016-08-13] MEDS: BETAMETHASONE DIPROPIONATE 0.05% CREAM 15 GM TOPICAL SCH ×2 (08:14→21:59)
[2016-08-13] MEDS: SODIUM CHLORIDE 0.9% FLUSH 5 ML FLUSH IV FLUSH SCH ×2 (08:14→22:00)
[2016-08-13] MEDS: CALAMINE/PRAMOXINE LOTION 180 ML BTL TOPICAL SCH ×2 (08:14→21:58)
[2016-08-13] MEDS: COLLAGENASE OINT 30 GM TUBE TOP SCH (08:15)
[2016-08-13 11:41] LABS: INTERNATIONAL NORMALIZED RATIO 1.2 RATIO; PROTHROMBIN TIME - PATIENT 13.1 SEC (9.8-11.6)
[2016-08-13] MEDS ORDERED: PHENYLEPH/NS 1000 MCG/10 ML SYR IV ONE (12:00)
[2016-08-13] MEDS ORDERED: PROPOFOL 200 MG/20 ML AMP IV ONE (12:00)
[2016-08-13] MEDS ORDERED: LACTATED RINGER'S 1000 ML INJ 2,000 ML IV ONE (12:00)
[2016-08-13] MEDS ORDERED: MORPHINE SULFATE 4 MG/ML INJ IV PUSH PRN (15:15)
--- NOTE | 2016-08-13 15:24 | HHI.PR ---
cc: Zechariah Faulkner MD Immediate Post Op Note Procedure Date: Aug 13, 2016 Pre Op Diagnosis: Skin separation at colostomy site Post Op Diagnosis: Peristomal hernia with skin separation Surgeon: Zechariah Faulkner Ham Doctor(s): Amador RIVERA Procedure: Revision colostomy Findings: Fascial disruption with peristomal hernia Additional Information: No infection present Complications: None Specimen(s) removed: None Estimated blood loss: <10 ml Anesthesia: LMA Drains: None IVF (1000 ml) Patient to: PACU Patient Condition: Good Date/Time of Procedure: SEE SURGICAL CARE RECORD Zechariah Faulkner MD Aug 13, 2016 15:23
[2016-08-13] MEDS ORDERED: DO NOT ADM ANY ANTICOAGULANT DRUGS XX PRN (16:00)
[2016-08-13] MEDS ORDERED: SODIUM CHLORID 0.9% 500 ML INJ 500 ML IV ONE (16:00)
[2016-08-13] MEDS ORDERED: COLLOIDAL OATMEAL 42 GM PACKET TOPICAL PRN (17:45)
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
[2016-08-14] VITALS (17 sets, daily range): BP systolic 66–142; BP diastolic 41–97; PULSE 84–111; RESP 12–32; TEMP 97.8–101.3; O2SAT 74–100
[2016-08-14] MEDS: ACETAMINOPHEN 325 MG TAB PO PRN (02:00)
[2016-08-14] MEDS ORDERED: PIPERACIL-TAZO 4.5 GM PREMIX 100 ML IV SCH ×2 (02:00→08:00)
[2016-08-14] MEDS: POTASSIUM PHOSPHATE/SODIUM PHOSPHATE 250 MG TAB PO SCH ×5 (02:01→22:50)
--- NOTE | 2016-08-14 02:10 | RADRPT ---
EXAM DATE/TIME: 08/14/2016 01:49 [facility] COMPARISON: CHEST SINGLE AP, July 23, 2016, 12:23. INDICATIONS : Shortness of breath, difficulty breathing. MEDICAL HISTORY : None. SURGICAL HISTORY : Ivkbgw-f-ofip placement ENCOUNTER: Initial ACUITY: 1 day PAIN SCORE: Non-responsive. LOCATION: Bilateral chest FINDINGS: There is mild consolidation of the right lung base. No large effusion seen. No pneumothorax. There is a left subclavian Ctsjis-i-Ehge catheter again noted, tip in the superior vena cava. CONCLUSION: Mild right base consolidation. Aidan Felipe MD on August 14, 2016 at 2:08 Board Certified Radiologist. This report was verified electronically.
[2016-08-14 03:24] LABS: AUTOMATED NEUTROPHIL # 21.3 TH/MM3 (1.8-7.7); BASOPHIL # 0.1 TH/MM3 (0-0.2); BASOPHIL % 0.4 % (0.0-2.0); EOSINOPHIL # 0.2 TH/MM3 (0-0.4); EOSINOPHIL % 0.9 % (0.0-4.0); HEMATOCRIT 33.7 % (35.0-46.0); HEMO FLAGS DIFF FINAL; LYMPHOCYTE # 1.2 TH/MM3 (1.0-4.8); MEAN CELL VOLUME 84.2 FL (80.0-100.0); MEAN CORPUSCULAR HGB CONC 32.1 % (32.0-36.0); MONO % 4.4 % (0.0-8.0); NEUT % 89.3 % (16.0-70.0); PLATELET COUNT 385 TH/MM3 (150-450); RED CELL DISTRIBUTION WIDTH 19.9 % (11.6-17.2); WHITE BLOOD COUNT 23.9 TH/MM3 (4.0-11.0)
[2016-08-14 03:25] LABS: BACTERIA, URINE MANY /hpf; BLOOD, URINE TRACE (NEG); GLUCOSE,URINE NEG (NEG); KETONE, URINE NEG (NEG); MUCUS URINE MANY /lpf (OCC); NITRITE,URINE NEG (NEG); URINE COLOR YELLOW (YELLW/STRAW)
[2016-08-14 03:26] LABS: COMMENT (UR) CATH-CULTURE IND; CULTURE IF INDICATED CATH CULTURE IND
[2016-08-14] MEDS ORDERED: SODIUM CHLOR 0.9% 1000 ML INJ 1,000 ML IV ONE (03:30)
[2016-08-14] MEDS ORDERED: Vancomycin Consult Pharmacy 1 EA OTHER SCH (03:30)
[2016-08-14 03:40] LABS: ALT (GPT) 37 U/L (10-53); ANION GAP 9 MEQ/L (5-15); AST (GOT) 32 U/L (15-37); BICARBONATE 30.8 MEQ/L (21.0-32.0); BLOOD UREA NITROGEN 47 MG/DL (7-18); CHLORIDE 109 MEQ/L (98-107); GLOMERULAR FILTRATION RATE 22 ML/MIN (>89); MAGNESIUM 2.2 MG/DL (1.5-2.5); POTASSIUM 3.8 MEQ/L (3.5-5.1); SODIUM (NA) 149 MEQ/L (136-145)
[2016-08-14 03:42] LABS: ALKALINE PHOSPHATASE 76 U/L (45-117); TOTAL BILIRUBIN ADULT 0.4 MG/DL (0.2-1.0)
--- NOTE | 2016-08-14 03:45 | HHI.PR ---
Addendum to Inpatient Note Addendum Reason: Additional Documentation Additional Information [facility] responded promptly. Upon arrival, we were notified that Dr. Hernandez was already notified and orders were given for patient. No other intervention/assistance requested by [facility] team. Rosey Lewis Dr., MD R1 Aug 14, 2016 03:45
[2016-08-14] MEDS ORDERED: NOREPINEPHRINE-DEXTROSE DRIP 250 ML IV ONE ×2 (03:57→08:05)
[2016-08-14] MEDS ORDERED: ROCURONIUM INJ 50 MG/5 ML VIAL ONE (04:36)
[2016-08-14] MEDS ORDERED: ETOMIDATE 20 MG/10 ML VIAL ONE (04:36)
[2016-08-14] MEDS ORDERED: VANCOMYCIN INJ 1,250 MG in SODIUM CHLOR 0.9% 250 ML INJ 250 ML IV SCH ×2 (05:00→23:00)
[2016-08-14] MEDS ORDERED: PROPOFOL 1000 MG/100 ML INJ 100 ML ONE (05:08)
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
[2016-08-14 05:25] LABS: BLOOD GAS BASE EXCESS 0.6 mmol/L (-2-2); BLOOD GAS CARBOXYHEMOGLOBIN 1.1 % (0-4); BLOOD GAS HCO3 27 mmol/L (22-26); BLOOD GAS METHEMOGLOBIN 0.6 % (0-2); BLOOD GAS O2 HGB SATURATION 98 % (90-100); BLOOD GAS OXYGEN CONTENT 14.1 Vol % (12.0-20.0); BLOOD GAS PCO2 57 mmHg (38-42); BLOOD GAS PO2 328 mmHg (61-120); BLOOD GAS TOTAL HGB 9.7 G/DL (12.0-16.0); TEMP CORR TO 98.6
[2016-08-14 05:26] LABS: CRITICAL VALUE YES; DRAW SITE RT FEMORAL; FIO2 100 %; NUMBER OF ARTERIAL PUNCTURES 1; OXYGEN DEVICE VENTILATOR; STAT YES; VENT SETTINGS PRVC/AC
--- NOTE | 2016-08-14 05:26 | RADRPT ---
EXAM DATE/TIME: 08/14/2016 05:00 [facility] COMPARISON: CHEST SINGLE AP, August 14, 2016, 1:49. FINDINGS: Patient is now intubated. Endotracheal tube tip is about 2 cm above the mandi. A right IJ central ve nous catheter is also in place, tip at the atriocaval junction. The left subclavian Khzkum-t-Nudp cat heter with tip in the superior vena cava is unchanged. Mild right base consolidation not significantly changed. No large effusion seen. No pneumothorax. Hea rt size stable, within normal limits. CONCLUSION: 1. Appropriately positioned lines and tubes as above. 2. New right IJ central venous catheter with tip in the right atrium. No pneumothorax or other acute complication demonstrated. 3. No significant change mild right base consolidation. Aidan Felipe MD on August 14, 2016 at 5:23 Board Certified Radiologist. This report was verified electronically.
[2016-08-14] MEDS: FREE WATER G-TUBE SCH ×3 (06:00→20:14)
--- NOTE | 2016-08-14 06:02 | HHI.PR ---
Addendum to Inpatient Note Addendum Reason: Additional Documentation Additional Information Rapid response was called on this patient at around 3:30 AM. Patient's nurse had informed me at that time that rapid response was called because patient was found to be hypotensive with blood pressure around 60s over 40s, heart rate around 120s to 130s on routine vital check for 4 AM vitals. Patient was also having respiratory rate around 33. I have therefore ordered for stat transferred to intensive care unit. Have also ordered for 1 L normal saline bolus at that time. Patient does have history of CHFwith latest echo showing EF of 40%. Chart reviewed. Patient was hypotensive in the evening post op. She did receive IV fluids 500 cc bolus at that time. Her blood pressure did pharmacy picking technician at that time. Nurse reported that he therefore did give patient her evening doses of antihypertensives. On chart review, this was lisinopril 10 mg, diltiazem 60 mg , and metoprolol 50 mg. All given around 10 PM. Of note is that the nurse had also called to me at around 1:30 AM prior to this rapid response episode because patient had fever of 101. At that time, her fever workup was ordered which included blood cultures, UA, urine culture, and a chest x-ray. He had also told me that patient had heavy sediments in her Duke and that this Duke was changed longer go. Therefore I had also ordered for Duke to be replaced with a new one and also to send UA and urine culture from the new Duke. Zosyn 4.5 g IV every 6 hours was also ordered. Impression: Septic shock Hypotensionpartly due to septic shock. However iatrogenic as well. Plan: Patient was transferred stat to intensive care unit. Upon my arrival to ICU to see patient, patient was also being seen by shirt finisher at the bedside. Patient was hypoxic initially in the 70s as per report. However after suctioning and put in a nasal trumpet, her oxygenation picked up to above 95% on nonrebreather. Patient will be transferred to shirt finisher service. Have also added vancomycin IV per creatinine clearance and levels. Central line/pressors per shirt finisher Carolina Hernandez MD Aug 14, 2016 06:02
[2016-08-14] MEDS ORDERED: ROCURONIUM INJ 50 MG/5 ML VIAL IV ONE (07:00)
[2016-08-14] MEDS: DILTIAZEM HCL 60 MG TAB PO SCH (07:58)
[2016-08-14] MEDS: LISINOPRIL 10 MG TAB PO SCH (07:58)
[2016-08-14] MEDS ORDERED: TERBUTALINE INJ 1 MG/ML AMP SQ PRN (08:00)
[2016-08-14] MEDS: METOPROLOL TARTRATE 50 MG TAB PO SCH (08:06)
[2016-08-14] MEDS: LACTATED RINGER'S 1000 ML INJ 1,000 ML IV SCH ×3 (08:08→21:53)
[2016-08-14] MEDS: SODIUM CHLORIDE 0.9% FLUSH 5 ML FLUSH IV FLUSH SCH ×2 (08:45→20:13)
[2016-08-14] MEDS: PIPERACIL-TAZO 2.25 GM PREMIX 50 ML IV SCH ×3 (08:45→20:13)
[2016-08-14] MEDS: COLLAGENASE OINT 30 GM TUBE TOP SCH (08:46)
[2016-08-14] MEDS: BACITRACIN TOP OINT 15 GM TUBE TOP SCH ×2 (08:46→20:14)
[2016-08-14] MEDS: CALAMINE/PRAMOXINE LOTION 180 ML BTL TOPICAL SCH ×2 (08:46→20:14)
[2016-08-14] MEDS: BETAMETHASONE DIPROPIONATE 0.05% CREAM 15 GM TOPICAL SCH ×2 (08:47→20:14)
[2016-08-14] MEDS ORDERED: predniSONE 20 MG TAB PO SCH (09:00)
[2016-08-14] MEDS: INSULIN ASPART SUPPLEMENTAL SCALE SQ SCH ×3 (09:00→20:12)
[2016-08-14] MEDS ORDERED: GLUCAGON 1 MG/ML VIAL OTHER PRN (09:00)
[2016-08-14] MEDS: MULTIVITAMINS LIQUID 5 ML UDC PO SCH (09:00)
[2016-08-14] MEDS: hydrOXYzine PAMOATE 25 MG CAP PO SCH ×3 (09:00→16:37)
[2016-08-14] MEDS ORDERED: DEXTROSE 50% IN WATER 50 ML VIAL(D50) IV PUSH PRN (09:00)
--- NOTE | 2016-08-14 09:00 | PD.PROCEDR ---
Procedure Note Procedure DATE: 08/12/60 CENTRAL LINE PLACEMENT: Right internal jugular vein. Ultrasound-guided INDICATION: Central venous access CONSENT Procedure was done emergently as patient was in profound shock, and in need of IV access. DESCRIPTION OF THE PROCEDURE The patient was placed in supine position, mild Trendelenburg. The skin was cleansed with Chloraprep. Additional barrier precautions included large sterile drape, sterile gloves, sterile gown, face mask, and hat. 1 % lidocaine was used for local anesthesia. Under direct ultrasound guidance and on single attempt, the vein was accessed with an introducer needle. The guide wire was advanced and the tract was dilated. Using Seldinger technique a 7 Hebrew 20 cm antimicrobial coated triple-lumen catheter was advanced to a depth of 17 centimeters. The guide wire was removed. All ports had good return of dark venous blood and flushed easily with saline. The central line was secured with 2.0 silk. A sterile dressing with antibiotic disc was applied. ESTIMATED BLOOD LOSS: Minimal COMPLICATIONS: No apparent complications. STAT chest x-ray demonstrates satisfactory central venous line position without complication. Arpita Vega MD Aug 14, 2016 09:00
--- NOTE | 2016-08-14 09:02 | PD.PROCEDR ---
Procedure Note Procedure PROCEDURE NOTE PROCEDURE: Endotracheal intubation INDICATION: Acute respiratory failure DETAILS OF PROCEDURE: The patient was placed in optimal position and preoxygenated with 100% FiO2 via [id number]. Oximeter oxygen saturation of 94% was obtained prior to laryngoscopy. The patient was administered etomidate 20 mg IV for sedation and rocuronium 50 mg IV. Laryngoscopy was performed with a 4 glide scope blade and a grade I Cormack-Lehane view was obtained. On single attempt a size 7.5 endotracheal tube was visualized passing through the cords. Correct placement was confirmed with colorimetric CO2 detector. Breath sounds were absent on the right side. Patient was lavaged and suctioned 3 with some improvement.. No sounds auscultated over the stomach. The endotracheal tube was secured with a commercial tube lynn at a depth of 22 cm at the lips. The patient was connected to the ventilator. The patient tolerated the procedure well without any apparent complication. Oxygen saturations were maintained greater than 90% at all times. Proceeded with bronchoscopy to further relieve right lung mucus plugging. Arpita Vega MD Aug 14, 2016 09:02
--- NOTE | 2016-08-14 09:12 | PD.PROCEDR ---
Procedure Note Procedure Date: 08/12/60 Procedure: Therapeutic and diagnostic Fiberoptic bronchoscopy with bronchoalveolar lavage Indication: Acute respiratory failure, mucus plugging, elevated peak pressures with difficulty ventilating due to copious secretions Details of procedure: Procedure was done emergently as patient was in extremis with inability to ventilate. The patient was positioned and maintained on continuous pulse ox and hemodynamic monitoring.. The patient was preoxygenated with 100% FiO2 via endotracheal tube. She was sedated with propofol drip. I entered the endotracheal tube with a flexible bronchoscope but there was difficulty bronching through existing 7.5 ETT. Attempted to exchange 8.0 ETT over a bougie but met resistance at the level of the glottis when trying to pass 8.0 blindly over bougie. Extubated patient, administered Rocuronium 50 mg IV. Used 4 Glidescope and Grade I view was obtained and 8.0 ETT was visualized passing through the cords. There was positive color change with colorimetric CO2 detector. The fiberoptic bronchoscope was then advanced into the 8.0 endotracheal tube. There were copious thick yellow secretions throughout the pulmonary tree. These were particularly prominent in the right side where there were thick tenacious secretions that required lavage of NS 5-10 mL x8 to free airway of mucous plugs. Patient tolerated the procedure well with sats 100 % throughout. Significant improvement in ventilation following procedure with adequate tidal volume delivery on vent and improved peak pressures. Arpita Vega MD Aug 14, 2016 09:12
[2016-08-14] MEDS: methylPREDNISolone SOD SUCC 40 MG/1 ML VIAL IV PUSH SCH ×4 (09:31→22:50)
[2016-08-14] MEDS: PANTOPRAZOLE SODIUM 40 MG VIAL IV PUSH SCH (09:31)
[2016-08-14] MEDS ORDERED: SODIUM CHLOR 0.9% 1000 ML INJ 2,000 ML IV STA (09:57)
[2016-08-14] MEDS: RESP: ALBUTEROL 2.5 MG/IPRATROPIUM 0.5 MG NEB (SCH) NEB ×3 (10:04→21:16)
[2016-08-14] MEDS: NOREPINEPHRINE-DEXTROSE DRIP 250 ML IV SCH ×2 (12:02→20:13)
[2016-08-14 12:17] LABS: BLOOD GAS CARBOXYHEMOGLOBIN 1.5 % (0-4); BLOOD GAS HCO3 21 mmol/L (22-26); BLOOD GAS METHEMOGLOBIN 0.5 % (0-2); BLOOD GAS O2 HGB SATURATION 97 % (90-100); BLOOD GAS OXYGEN CONTENT 15.4 Vol % (12.0-20.0); BLOOD GAS PCO2 37 mmHg (38-42); BLOOD GAS PO2 156 mmHg (61-120); TEMP CORR TO 98.6
[2016-08-14 12:18] LABS: CRITICAL VALUE NO; FIO2 50 %; OXYGEN DEVICE VENTILATOR; VENT SETTINGS PRVC/AC
[2016-08-14 12:19] LABS: DRAW SITE LT RADIAL; NUMBER OF ARTERIAL PUNCTURES 1; STAT NO; ULNAR PULSE PRESENT
--- NOTE | 2016-08-14 14:26 | HHI.PR ---
Subjective Subjective Notes Patient intubated and on levophed. Objective Vitals/I&O Vital Signs Date Time Temp Pulse Resp B/P Pulse Ox O2 Delivery O2 Flow Rate FiO2 08/14/16 13:00 100 40 08/14/16 12:00 98.0 94 12 85/62 08/14/16 03:45 15.00 08/14/16 03:45 Non-Rebreather Labs Laboratory Tests Test 08/14/16 08/14/16 08/14/16 08/14/16 02:52 02:55 04:30 05:17 White Blood Count 23.9 Red Blood Count 4.00 Hemoglobin 10.8 Hematocrit 33.7 Mean Corpuscular Volume 84.2 Mean Corpuscular Hemoglobin 27.0 Mean Corpuscular Hemoglobin 32.1 Concent Red Cell Distribution Width 19.9 Platelet Count 385 Mean Platelet Volume 8.6 Neutrophils (%) (Auto) 89.3 Lymphocytes (%) (Auto) 5.0 Monocytes (%) (Auto) 4.4 Eosinophils (%) (Auto) 0.9 Basophils (%) (Auto) 0.4 Neutrophils # (Auto) 21.3 Lymphocytes # (Auto) 1.2 Monocytes # (Auto) 1.0 Eosinophils # (Auto) 0.2 Basophils # (Auto) 0.1 CBC Comment DIFF FINAL Differential Comment Sodium Level 149 Potassium Level 3.8 Chloride Level 109 Carbon Dioxide Level 30.8 Anion Gap 9 Blood Urea Nitrogen 47 Creatinine 2.24 Estimat Glomerular Filtration 22 Rate Random Glucose 162 Calcium Level 8.6 Phosphorus Level 5.4 Magnesium Level 2.2 Total Bilirubin 0.4 Aspartate Amino Transf 32 (AST/SGOT) Alanine Aminotransferase 37 (ALT/SGPT) Alkaline Phosphatase 76 Total Protein 7.0 Albumin 2.1 Urine Color YELLOW Urine Turbidity CLOUDY Urine pH 8.0 Urine Specific [place] GREATER THAN 1.035 Urine Protein 300 Urine Glucose (UA) NEG Urine Ketones NEG Urine Occult Blood TRACE Urine Nitrite NEG Urine Bilirubin NEG Urine Urobilinogen LESS THAN 2.0 Urine Leukocyte Esterase LARGE Urine RBC 178 Urine WBC Urine WBC Clumps MANY Urine Amorphous Sediment OCC Urine Bacteria MANY Urine Mucus MANY Microscopic Urinalysis Comment CATH-CULTURE IND Lactic Acid Level 1.2 Blood Gas Puncture Site RT FEMORAL Blood Gas Patient Temperature 98.6 Blood Gas HCO3 27 Blood Gas Base Excess 0.6 Blood Gas Oxygen Saturation 98 Arterial Blood pH 7.29 Arterial Blood Partial 57 Pressure CO2 Arterial Blood Partial 328 Pressure O2 Arterial Blood Oxygen Content 14.1 Arterial Blood 1.1 Carboxyhemoglobin Arterial Blood Methemoglobin 0.6 Blood Gas Hemoglobin 9.7 Oxygen Delivery Device VENTILATOR Blood Gas Ventilator Setting PRVC/AC Blood Gas Inspired Oxygen 100 Test 08/14/16 12:04 Blood Gas Puncture Site LT RADIAL Blood Gas Patient Temperature 98.6 Blood Gas HCO3 21 Blood Gas Base Excess -3.0 Blood Gas Oxygen Saturation 97 Arterial Blood pH 7.38 Arterial Blood Partial 37 Pressure CO2 Arterial Blood Partial 156 Pressure O2 Arterial Blood Oxygen Content 15.4 Arterial Blood 1.5 Carboxyhemoglobin Arterial Blood Methemoglobin 0.5 Blood Gas Hemoglobin 11.0 Oxygen Delivery Device VENTILATOR Blood Gas Ventilator Setting PRVC/AC Blood Gas Inspired Oxygen 50 Date/Time Procedure Status Source Growth 08/14/16 06:30 Gram Stain Received Bronchial Washings Right Mid Lobe Pending 08/14/16 06:30 Bronchial Culture Received Bronchial Washings Right Mid Lobe Pending 08/14/16 03:10 Aerobic Blood Culture Received Blood Peripheral Pending 08/14/16 03:10 Anaerobic Blood Culture Received Blood Peripheral Pending 08/14/16 02:55 Urine Culture Received Urine Clean Catch Pending Abdomen: Other (tender) Narrative Exam Colostomy viable; stool in bag. Appliance changed by nurse; intact at present. A/P Problem List: (1) Status post colostomy (2) Infected decubitus ulcer (3) History of CVA (cerebrovascular accident) (4) COPD (chronic obstructive pulmonary disease) (5) Neurocognitive disorder (6) Essential hypertension Assessment and Plan 60-year-old female with PMH CVA, sepsis with infected decubitus ulcer: Discussed with [facility] medicine; will get C diff and CT scan. Problem Qualifiers (1) Infected decubitus ulcer: Qualified Code: L89.95 - Infected decubitus ulcer, unstageable Zechariah Faulkner MD Aug 14, 2016 14:26
[2016-08-14] MEDS ORDERED: EPINEPHrine HCL (1:10,000) 1 MG/10 ML SYRINGE ONE (15:17)
[2016-08-14] MEDS ORDERED: ATROPINE SULFATE 1 MG/10 ML SYRINGE ONE (15:17)
--- NOTE | 2016-08-14 16:07 | RADRPT ---
EXAM DATE/TIME: 08/14/2016 15:44 [facility] COMPARISON: No previous studies available for comparison. INDICATIONS : Abdominal pain. Evaluate for free air vs pathology vs colitis. ORAL CONTRAST: No oral contrast ingested. RADIATION DOSE: 14.35 CTDIvol (mGy) MEDICAL HISTORY : Cardiovascular disease. Seizures. Chronic obstructive pulmonary disease. Hepatitis C. Hypertension. SURGICAL HISTORY : section. ENCOUNTER: Initial ACUITY: 1 day PAIN SCALE: Non-responsive LOCATION: Abdomen. TECHNIQUE: Volumetric scanning of the abdomen and pelvis was performed. Using automated exposure control and adjustment of the mA and/or kV according to patient size, radiation dose was kept as low as reasonably achievable to obtain optimal diagnostic quality images. FINDINGS: There is mild peribronchial thickening in both lung bases. Trace ascites is evident. The liver, spleen, pancreas and adrenals are unremarkable. Gastrostomy tube is in good position. The patient has had revision of a colostomy. There is no abscess. There is no free air. The gallbladder is mildly prominent but appears benign. There is mild prominence to both collecting systems in a nonspecific fashion. The bladder is decompre ssed by a [facility]. Review of bone windows reveals no significant abnormality. CONCLUSION: 1. There is no evidence for an intraabdominal process as the cause of sepsis. 2. There is mild prominence to both collecting systems, nonspecific. Vinay Avalos MD FACR on August 14, 2016 at 15:59 Board Certified Radiologist. This report was verified electronically.
[2016-08-14] MEDS: PROPOFOL 1000 MG/100 ML IV SCH ×2 (17:27→20:12)
[2016-08-14 19:13] LABS: C. DIFF EPI 027 PRESUMPTIVE POSITIVE (NEGATIVE)
[2016-08-14 19:15] LABS: C. DIFF TOXIN PCR POSITIVE (NEGATIVE)
[2016-08-14] MEDS: CHLORHEXIDINE 0.12% (ORAL KIT) 15 ML CUP MT SCH (20:13)
--- NOTE | 2016-08-14 21:13 | HHI.IDPN ---
Subjective Subjective Remarks Events noted Pt became septic, hemodynamically unstable and was intubated, placed ion mech vent and on pressor in the last 24 hrs She ws also trasnferrd to ICU amd starte don broad spectrum abx (vanco+ zosyn) She also developped ARF RN reports liquid stool in colostomty Stool for C.diff came back + for hypervirulent 027 strain H/o abx use over 1 -2 mos ago Antibiotics vanco+ zosyn Allergies: Coded Allergies: MRI PRECAUTION (Verified Adverse Reaction, Severe, ANEURYSM CLIP PER DR. [id number]-09/08/09, 05/31/16) *MDRO Multi-Drug Resistant Organism (Verified Adverse Reaction, Unknown, MRSA, 08/14/16) MRSA (sputum) - 10/2004 & 11/2004 Objective . Vital Signs Date Time Temp Pulse Resp B/P Pulse Ox O2 Delivery O2 Flow Rate FiO2 08/14/16 16:17 100 40 08/14/16 16:00 137/97 08/14/16 16:00 97.9 84 12 128/80 100 08/14/16 16:00 40 08/14/16 15:25 100 100 08/14/16 13:00 100 40 08/14/16 12:00 50 08/14/16 12:00 98.0 94 12 85/62 100 08/14/16 08:44 100 50 08/14/16 08:00 50 08/14/16 08:00 98.9 88 12 107/71 100 08/14/16 06:55 50 08/14/16 06:15 100 50 08/14/16 05:30 100 100 08/14/16 03:45 95 15.00 08/14/16 03:45 93 Non-Rebreather 15.00 08/14/16 03:30 15.00 08/14/16 03:30 82 15.00 08/14/16 03:10 99.4 111 32 66/41 74 08/14/16 00:00 101.3 97 24 129/70 95 08/13/16 08/13/16 08/14/16 15:00 23:00 07:00 Intake Total 202 ml 1625 ml Output Total 60 ml Balance 202 ml 1565 ml Intake Oral 0 ml IV Total 2 ml 625 ml Other 200 ml 1000 ml Output Urine Total 50 ml Estimated Blood Loss 10 ml # Voids 2 . Laboratory Tests Test 08/14/16 02:52 White Blood Count 23.9 TH/MM3 Red Blood Count 4.00 MIL/MM3 Hemoglobin 10.8 GM/DL Hematocrit 33.7 % Mean Corpuscular Volume 84.2 FL Mean Corpuscular Hemoglobin 27.0 PG Mean Corpuscular Hemoglobin 32.1 % Concent Red Cell Distribution Width 19.9 % Platelet Count 385 TH/MM3 Mean Platelet Volume 8.6 FL Neutrophils (%) (Auto) 89.3 % Lymphocytes (%) (Auto) 5.0 % Monocytes (%) (Auto) 4.4 % Eosinophils (%) (Auto) 0.9 % Basophils (%) (Auto) 0.4 % Neutrophils # (Auto) 21.3 TH/MM3 Lymphocytes # (Auto) 1.2 TH/MM3 Monocytes # (Auto) 1.0 TH/MM3 Eosinophils # (Auto) 0.2 TH/MM3 Basophils # (Auto) 0.1 TH/MM3 CBC Comment DIFF FINAL Differential Comment Laboratory Tests Test 08/14/16 08/14/16 02:52 04:30 Sodium Level 149 MEQ/L Potassium Level 3.8 MEQ/L Chloride Level 109 MEQ/L Carbon Dioxide Level 30.8 MEQ/L Anion Gap 9 MEQ/L Blood Urea Nitrogen 47 MG/DL Creatinine 2.24 MG/DL Estimat Glomerular Filtration 22 ML/MIN Rate Random Glucose 162 MG/DL Calcium Level 8.6 MG/DL Phosphorus Level 5.4 MG/DL Magnesium Level 2.2 MG/DL Total Bilirubin 0.4 MG/DL Aspartate Amino Transf 32 U/L (AST/SGOT) Alanine Aminotransferase 37 U/L (ALT/SGPT) Alkaline Phosphatase 76 U/L Total Protein 7.0 GM/DL Albumin 2.1 GM/DL Lactic Acid Level 1.2 mmol/L Microbiology Date/Time Procedure Status Source Growth 08/14/16 02:52 Aerobic Blood Culture Received Blood Peripheral Pending 08/14/16 02:52 Anaerobic Blood Culture Received Blood Peripheral Pending 08/14/16 02:55 Urine Culture Received Urine Clean Catch Pending 08/14/16 03:10 Aerobic Blood Culture Received Blood Peripheral Pending 08/14/16 03:10 Anaerobic Blood Culture Received Blood Peripheral Pending 08/14/16 06:30 Gram Stain - Final Resulted Bronchial Washings Right Mid Lobe 08/14/16 06:30 Bronchial Culture Resulted Bronchial Washings Right Mid Lobe Pending Imaging Last Impressions Chest X-Ray 08/14/16 0000 Signed Impressions: Service Date/Time: July 05:00 - CONCLUSION: 1. Appropriately positioned lines and tubes as above. 2. New right IJ central venous catheter with tip in the right atrium. No pneumothorax or other acute complication demonstrated. 3. No significant change mild right base consolidation. Aidan Felipe MD Abdomen/Pelvis CT 08/14/16 0000 Signed Impressions: Service Date/Time: July 15:44 - CONCLUSION: 1. There is no evidence for an intraabdominal process as the cause of sepsis. 2. There is mild prominence to both collecting systems, nonspecific. Vinay Avalos MD FACR Lower Extremity Ultrasound 06/01/16 0000 Signed Impressions: Service Date/Time: Wednesday, June 01, 2016 02:44 - CONCLUSION: No evidence of lower extremity DVT on the right or left. Rony Espinoza MD Head CT 05/31/16 0000 Signed Impressions: Service Date/Time: Tuesday, May 31, 2016 11:51 - CONCLUSION: 1. 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 2. Negative for an acute process. Vinay Avalos MD FACR Physical Exam CONSTITUTIONAL/GENERAL: This is an adequately nourished patient, in no apparent distress. Sedated intubated, on mech vent TUBES/LINES/DRAINS: SKIN: No jaundice, Multiple excoriations present Skin temperature appropriate. Not diaphoretic. HEAD: Atraumatic. Normocephalic. EYES: Pupils equal and round and reactive. Extraocular motions intact. No scleral icterus. No injection or drainage. Fundi not examined. ENT: .Oral mucosae dryish without visible erythema, exudates, masses, or lesions. NECK: Trachea midline. Supple, nontender. CARDIOVASCULAR: Regular rate and rhythm without murmurs, gallops, or rubs. No JVD. Peripheral pulses symmetric. RESPIRATORY/CHEST: Symmetric, unlabored respirations. Clear to auscultation. Breath sounds equal bilaterally. No wheezes, rales, or rhonchi. GASTROINTESTINAL: Abdomen soft, clearly tender (grimacing), moderately distended. No hepato-splenomegaly, or palpable masses. No guarding. Bowel sounds hyperactive Colostomy with liquid stool GENITOURINARY: Without palpable bladder distension. [facility] catheter in place. MUSCULOSKELETAL: Extremities without clubbing, cyanosis, or edema. . No mottling or clubbing. LYMPHATICS: No palpable cervical or supraclavicular adenopathy. NEUROLOGICAL: sedated PSYCHIATRIC: unable to assess 2/2 clinical condition Assessment & Plan Remarks Neew episode of sepsis - seoptic shock C.diff hypervirulent 027 strain UTI? Acute VDRF ARF No e/o PNA Ctically ill and unstable Infected decubs, sp dicvertive colostomy - start oral vanco, IV flagyl - cont zosyn, IV vanco for now - if no e/o other co-infx will promptly d/c BSA (braod spectrum abx) and concentrate just on C.fiff Rx dw RN dw Lanette Hunter MD Aug 14, 2016 21:13
[2016-08-14] MEDS: VANCOMYCIN 500 MG VIAL (FOR ORAL USE ONLY) PO SCH (21:52)
[2016-08-14] MEDS: metroNIDAZOLE 500 MG INJ 100 ML IV SCH (21:53)
[2016-08-15] VITALS (13 sets, daily range): BP systolic 118–144; BP diastolic 68–96; PULSE 77–108; RESP 12–21; TEMP 97.6–99; O2SAT 97–100
[2016-08-15] MEDS: PIPERACIL-TAZO 2.25 GM PREMIX 50 ML IV SCH ×4 (00:25→20:37)
[2016-08-15] MEDS: VANCOMYCIN 500 MG VIAL (FOR ORAL USE ONLY) PO SCH ×4 (02:02→20:37)
[2016-08-15] MEDS: INSULIN ASPART SUPPLEMENTAL SCALE SQ SCH ×4 (02:02→21:00)
[2016-08-15] MEDS: RESP: ALBUTEROL 2.5 MG/IPRATROPIUM 0.5 MG NEB (SCH) NEB ×4 (04:12→21:09)
[2016-08-15] MEDS: PROPOFOL 1000 MG/100 ML IV SCH (04:19)
[2016-08-15] MEDS: POTASSIUM PHOSPHATE/SODIUM PHOSPHATE 250 MG TAB PO SCH ×3 (04:19→18:00)
[2016-08-15] MEDS: methylPREDNISolone SOD SUCC 40 MG/1 ML VIAL IV PUSH SCH ×3 (04:19→18:07)
[2016-08-15] MEDS: metroNIDAZOLE 500 MG INJ 100 ML IV SCH ×3 (04:20→20:37)
[2016-08-15] MEDS: FREE WATER G-TUBE SCH ×3 (04:20→20:38)
[2016-08-15 05:18] LABS: AUTOMATED NEUTROPHIL # 18.1 TH/MM3 (1.8-7.7); BASOPHIL # 0.1 TH/MM3 (0-0.2); BASOPHIL % 0.3 % (0.0-2.0); EOSINOPHIL % 0.1 % (0.0-4.0); HEMATOCRIT 25.7 % (35.0-46.0); HEMO FLAGS DIFF FINAL; LYMPH % 4.8 % (9.0-44.0); LYMPHOCYTE # 0.9 TH/MM3 (1.0-4.8); MEAN CELL VOLUME 83.1 FL (80.0-100.0); MEAN CORPUSCULAR HEMOGLOBIN 26.9 PG (27.0-34.0); MEAN CORPUSCULAR HGB CONC 32.4 % (32.0-36.0); MONO % 2.2 % (0.0-8.0); NEUT % 92.6 % (16.0-70.0); PLATELET COUNT 221 TH/MM3 (150-450); RED BLOOD COUNT 3.09 MIL/MM3 (4.00-5.30); RED CELL DISTRIBUTION WIDTH 19.1 % (11.6-17.2); WHITE BLOOD COUNT 19.5 TH/MM3 (4.0-11.0)
[2016-08-15 05:41] LABS: BLOOD GAS BASE EXCESS -1.8 mmol/L (-2-2); BLOOD GAS CARBOXYHEMOGLOBIN 1.3 % (0-4); BLOOD GAS HCO3 22 mmol/L (22-26); BLOOD GAS METHEMOGLOBIN 0.6 % (0-2); BLOOD GAS O2 HGB SATURATION 97 % (90-100); BLOOD GAS OXYGEN CONTENT 15.1 Vol % (12.0-20.0); BLOOD GAS PCO2 31 mmHg (38-42); BLOOD GAS PO2 112 mmHg (61-120); CRITICAL VALUE NO; OXYGEN DEVICE VENTILATOR; TEMP CORR TO 98.6; VENT SETTINGS PRVC/AC
[2016-08-15 05:42] LABS: DRAW SITE ART LINE; FIO2 40 %; STAT NO
[2016-08-15 05:44] LABS: ALKALINE PHOSPHATASE 60 U/L (45-117); ALT (GPT) 30 U/L (10-53); ANION GAP 9 MEQ/L (5-15); AST (GOT) 29 U/L (15-37); BICARBONATE 25.7 MEQ/L (21.0-32.0); BLOOD UREA NITROGEN 39 MG/DL (7-18); CHLORIDE 115 MEQ/L (98-107); GLOMERULAR FILTRATION RATE 39 ML/MIN (>89); MAGNESIUM 2.1 MG/DL (1.5-2.5); SODIUM (NA) 150 MEQ/L (136-145); TOTAL BILIRUBIN ADULT 0.5 MG/DL (0.2-1.0)
[2016-08-15 06:16] LABS: POTASSIUM 2.9 MEQ/L (3.5-5.1)
--- NOTE | 2016-08-15 06:39 | RADRPT ---
EXAM DATE/TIME: 08/15/2016 05:53 [facility] COMPARISON: CHEST SINGLE AP, August 14, 2016, 5:00. INDICATIONS : Please evaluate after respiratory failure. MEDICAL HISTORY : None. SURGICAL HISTORY : [id number] placement ENCOUNTER: Subsequent ACUITY: 3 days PAIN SCORE: Non-responsive. LOCATION: Bilateral chest FINDINGS: Endotracheal tube is present in stable satisfactory position. Right neck central line terminates with tip overlying SVC. Hazy basilar parenchymal opacities are present indicating developing pleuroparenc hymal disease. Visualized cardiac contours are grossly stable. CONCLUSION: Slight interval worsening in aeration. Aidan Dumont MD on August 15, 2016 at 6:36 Board Certified Radiologist. This report was verified electronically.
[2016-08-15] MEDS: MULTIVITAMINS LIQUID 5 ML UDC PO SCH (09:00)
[2016-08-15] MEDS: COLLAGENASE OINT 30 GM TUBE TOP SCH (09:00)
[2016-08-15] MEDS: hydrOXYzine PAMOATE 25 MG CAP PO SCH ×3 (09:00→18:07)
[2016-08-15] MEDS ORDERED: MAGNESIUM OXIDE 400 MG TAB PO PRN (09:30)
[2016-08-15] MEDS ORDERED: POTASSIUM PHOSPHATE INJ 30 MMOL in SODIUM CHLOR 0.9% 250 ML INJ 250 ML IV PRN (09:30)
[2016-08-15] MEDS ORDERED: POTASSIUM CL 40 MEQ/30 ML LIQ UDC PO/TUBE PRN ×2 (09:30)
[2016-08-15] MEDS ORDERED: POTASSIUM CHLOR 20 MEQ PREMIX 100 ML IV PRN ×2 (09:30)
[2016-08-15] MEDS ORDERED: POTASSIUM PHOSPHATE MONOBASIC 500 MG TAB PO PRN (09:30)
[2016-08-15] MEDS ORDERED: SODIUM PHOSPHATE INJ 30 MMOL in SODIUM CHLOR 0.9% 250 ML INJ 240 ML IV PRN (09:30)
[2016-08-15] MEDS ORDERED: POTASSIUM PHOSPHATE MONOBASIC 500 MG TAB PO/TUBE PRN (09:30)
[2016-08-15] MEDS ORDERED: POTASSIUM CHLOR 40 MEQ PREMIX 100 ML IV PRN (09:30)
[2016-08-15] MEDS ORDERED: MAGNESIUM SULFATE INJ 4 GM in SODIUM CHLORIDE 0.9% INJ 92 ML IV PRN (09:30)
[2016-08-15] MEDS ORDERED: MAGNESIUM SULFATE INJ 2 GM in SODIUM CHLORIDE 0.9% INJ 96 ML IV PRN (09:30)
[2016-08-15] MEDS: PANTOPRAZOLE SODIUM 40 MG VIAL IV PUSH SCH (09:32)
[2016-08-15] MEDS: LACTATED RINGER'S 1000 ML INJ 1,000 ML IV SCH ×2 (09:34→16:37)
[2016-08-15] MEDS: BACITRACIN TOP OINT 15 GM TUBE TOP SCH ×2 (09:35→21:00)
[2016-08-15] MEDS: CHLORHEXIDINE 0.12% (ORAL KIT) 15 ML CUP MT SCH ×2 (09:35→20:00)
[2016-08-15] MEDS: SODIUM CHLORIDE 0.9% FLUSH 5 ML FLUSH IV FLUSH SCH ×2 (09:35→21:00)
[2016-08-15] MEDS: CALAMINE/PRAMOXINE LOTION 180 ML BTL TOPICAL SCH ×2 (09:35→21:00)
[2016-08-15] MEDS: BETAMETHASONE DIPROPIONATE 0.05% CREAM 15 GM TOPICAL SCH ×2 (09:36→21:00)
[2016-08-15] MEDS: POTASSIUM CHLOR 40 MEQ PREMIX 100 ML IV PRN ×2 (11:14→13:31)
--- NOTE | 2016-08-15 12:50 | HHI.PR ---
Subjective Subjective Notes Resting in bed; extubated Objective Vitals/I&O Vital Signs Date Time Temp Pulse Resp B/P Pulse Ox O2 Delivery O2 Flow Rate FiO2 08/15/16 10:24 97 Nasal Cannula 2.00 08/15/16 09:39 40 08/15/16 08:00 97.6 77 13 125/74 Labs Laboratory Tests Test 08/14/16 08/15/16 08/15/16 08/15/16 16:21 05:00 05:29 11:45 Stool C. difficile Toxin (PCR) POSITIVE Stl C. difficile Toxin PRESUMPTIVE Epiderm 027 POSITIVE White Blood Count 19.5 Red Blood Count 3.09 Hemoglobin 8.3 Hematocrit 25.7 Mean Corpuscular Volume 83.1 Mean Corpuscular Hemoglobin 26.9 Mean Corpuscular Hemoglobin 32.4 Concent Red Cell Distribution Width 19.1 Platelet Count 221 Mean Platelet Volume 8.2 Neutrophils (%) (Auto) 92.6 Lymphocytes (%) (Auto) 4.8 Monocytes (%) (Auto) 2.2 Eosinophils (%) (Auto) 0.1 Basophils (%) (Auto) 0.3 Neutrophils # (Auto) 18.1 Lymphocytes # (Auto) 0.9 Monocytes # (Auto) 0.4 Eosinophils # (Auto) 0.0 Basophils # (Auto) 0.1 CBC Comment DIFF FINAL Differential Comment Sodium Level 150 Potassium Level 2.9 Chloride Level 115 Carbon Dioxide Level 25.7 Anion Gap 9 Blood Urea Nitrogen 39 Creatinine 1.38 Estimat Glomerular Filtration 39 Rate Random Glucose 165 Calcium Level 8.1 Phosphorus Level 4.2 4.3 Magnesium Level 2.1 Total Bilirubin 0.5 Aspartate Amino Transf 29 (AST/SGOT) Alanine Aminotransferase 30 (ALT/SGPT) Alkaline Phosphatase 60 Total Protein 5.6 Albumin 1.4 Random Vancomycin Level 41.3 Blood Gas Puncture Site ART LINE Blood Gas Patient Temperature 98.6 Blood Gas HCO3 22 Blood Gas Base Excess -1.8 Blood Gas Oxygen Saturation 97 Arterial Blood pH 7.45 Arterial Blood Partial 31 Pressure CO2 Arterial Blood Partial 112 Pressure O2 Arterial Blood Oxygen Content 15.1 Arterial Blood 1.3 Carboxyhemoglobin Arterial Blood Methemoglobin 0.6 Blood Gas Hemoglobin 11.0 Oxygen Delivery Device VENTILATOR Blood Gas Ventilator Setting PRVC/AC Blood Gas Inspired Oxygen 40 Date/Time Procedure Status Source Growth 08/14/16 06:30 Gram Stain - Final Resulted Bronchial Washings Right Mid Lobe 08/14/16 06:30 Bronchial Culture - Preliminary Resulted Gram Negative Inderjit 08/14/16 03:10 Aerobic Blood Culture - Preliminary Resulted Blood Peripheral Gram Negative Inderjit 08/14/16 03:10 Anaerobic Blood Culture - Preliminary Resulted Blood Peripheral NO GROWTH IN 1 DAY 08/14/16 02:55 Urine Culture Received Urine Clean Catch Pending Cardiovascular: Regular Lungs: Clear Abdomen: Other (colostomy in place with liquid stool in bag; pink stoma ) Narrative Exam generalized edema A/P Problem List: (1) Status post colostomy (2) Infected decubitus ulcer (3) History of CVA (cerebrovascular accident) (4) COPD (chronic obstructive pulmonary disease) (5) Neurocognitive disorder (6) Essential hypertension Assessment and Plan 60 year old female with large sacral wound; s/p colostomy placement and POD2 colostomy revision -Stool studies shows +c-diff -Extubated and now off pressors -Colostomy in good working function -GS will follow peripherally Attending Statement pt seen at bedside off pressors c diff positive Attestation The exam, history, and the medical decision-making described in the above note were completed with the assistance of the mid-level provider. I reviewed and agree with the findings presented. I attest that I had a [id number] encounter with the patient on the same day, and personally performed and documented my assessment and findings in the medical record. Problem Qualifiers (1) Infected decubitus ulcer: Qualified Code: L89.95 - Infected decubitus ulcer, unstageable Ruma OrtaP Aug 15, 2016 12:50 Héctor Echeverria MD Sep 01, 2016 22:42
[2016-08-15] MEDS: ENOXAPARIN SODIUM 40 MG/0.4 ML SYRINGE SQ SCH (13:25)
--- NOTE | 2016-08-15 14:35 | HHI.CCPN ---
Subjective Remarks/Hospital Course 60-year-old female transferred to [facility] after [facility] was called due to hypotension and respiratory distress. She has a PMH of cerebral aneurysm repair, seizures, HTN, Hep C, tobacco abuse and is aphasic at baseline who originally presented to [facility] 05/31/16 with failure to thrive. She was found to have severe sepsis had decubitus ulcers on her sacrum, buttocks, heels. Plastic surgery consulted and managed wounds with wound vac. She underwent laparoscopic diverting colostomy 07/15/16. On 08/13 she underwent colostomy revision per Dr. Faulkner due to peristomal hernia. Postoperatively BP was in 90s/ 50s around 3 pm but improved with NS 500. She did receive her typical antihypertensive regimen including metoprolol 50, lisinopril 10, Cardizem 60 mg around 10 pm. . She developed fever 101. Blood cultures, u/a ordered per hospitalist and she was administered vancomycin and zosyn. Around 3 am [facility] was called due to hypotension, respiratory distress and AMS. BP was 60s/palp. She was transferred to ICU and electrical maintenance engineer consulted. I met patient upon arrival to [facility]. She had difficult access with one PIV so emergently placed RIJ CVL and bolused 3 L NS and started levophed while RT assisted ventilation with bagging. Once BP was adequate, intubated patient. Upon intubation, patient developed mucous plug on the R with completely absent R breath sounds. This improved with saline lavage and deep suctioning. Had copious respiratory secretions and elevated peak pressures in high 50s, essentially unable to ventilate, so proceeded with emergent therapeutic and diagnostic bronchoscopy with significant improvement. Duke had been replaced and had purulent sediment in Duke bag. In septic shock, source appears to be UTI and tracheobronchitis. Ostomy mucosa pink. Objective Vital Signs Date Time Temp Pulse Resp B/P Pulse Ox O2 Delivery O2 Flow Rate FiO2 08/15/16 12:00 97.8 94 17 118/68 100 08/15/16 10:24 Nasal Cannula 2.00 08/15/16 09:39 40 Intake and Output 08/14/16 08/14/16 08/14/16 07:59 15:59 23:59 Intake Total 4934 ml 1023 ml Output Total 700 ml 575 ml Balance 4234 ml 448 ml Result Diagram: 08/15/16 0500 08/15/16 1200 Other Results Microbiology Date/Time Procedure Status Source Growth 08/14/16 02:55 Urine Culture - Final Complete Urine Catheterized Urine Laboratory Tests Test 08/15/16 05:29 Blood Gas Puncture Site ART LINE Blood Gas Patient Temperature 98.6 Blood Gas HCO3 22 mmol/L (22-26) Blood Gas Base Excess -1.8 mmol/L (-2-2) Blood Gas Oxygen Saturation 97 % (90-100) Arterial Blood pH 7.45 (7.380-7.420) Arterial Blood Partial 31 mmHg (38-42) Pressure CO2 Arterial Blood Partial 112 mmHg Pressure O2 (61-120) Arterial Blood Oxygen Content 15.1 Vol % (12.0-20.0) Arterial Blood 1.3 % (0-4) Carboxyhemoglobin Arterial Blood Methemoglobin 0.6 % (0-2) Blood Gas Hemoglobin 11.0 G/DL (12.0-16.0) Oxygen Delivery Device VENTILATOR Blood Gas Ventilator Setting PRVC/AC Blood Gas Inspired Oxygen 40 % Imaging Last Impressions Chest X-Ray 06/01/16 0600 Signed Impressions: Service Date/Time: Wednesday, June 01, 2016 05:33 - CONCLUSION: Minimal patchy bilateral lower lung zone atelectasis. Rony Espinoza MD Lower Extremity Ultrasound 06/01/16 0000 Signed Impressions: Service Date/Time: Wednesday, June 01, 2016 02:44 - CONCLUSION: No evidence of lower extremity DVT on the right or left. Rony Espinoza MD Head CT 05/31/16 0000 Signed Impressions: Service Date/Time: Tuesday, May 31, 2016 11:51 - CONCLUSION: 1. 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 2. Negative for an acute process. Vinay Avalos MD FACR Objective Remarks Heart rate 110s systolic blood pressure 60/40 76% on nonrebreather hypopneic with inadequate respiration GENERAL: Chronically ill-appearing obese female who is in obvious respiratory distress with inadequate respiration SKIN: peripherally cool HEAD: Atraumatic. Normocephalic. EYES: 4 mm reactive bilaterally. No scleral icterus. No injection or drainage. ENT: No nasal bleeding or discharge. Mucous membranes dry with desiccated secretions in oropharynx. NECK: Trachea midline, scar from prior tracheostomy. Jugular veins flat. CARDIOVASCULAR: tachycardic. No murmurs rubs or gallops. RESPIRATORY: indequate respirations, began assisting with BVM, marked prolonged expiratory phase, diminished on rghit GASTROINTESTINAL: Abdomen obese, overall soft, ostomy mucosa pink. PEG in place with site benign appearing : Duke in place with purulent appearing sediment in tubing and at bottom of bag. MUSCULOSKELETAL: Extremities without clubbing, cyanosis. There is 1 + pretibial edema. NEUROLOGICAL: Some withdrawal upper extremities to deep noxious stimuli, + facial grimace during line placement. Procedures PEG Colostomy A/P Assessment and Plan Acute respiratory failure - Mucous plug R lung ?? - PNA ? - improved - SBT doing well today - will extubate COPD - no exacerbation - no indication for steroids - continue aerosols Encephalopathy - acute toxic - metabolic - Baseline hemiparesis and aphasia - D/C sedation while extubated Hypotension with Shock - secondary to hypovolemia, - sepsis - agressive fluid resuscitation - SVV goal 10-15 - A.Line/ Flow Track - Levophed as needed for MAP >65 Stage IV Decubitus - Diverting colostomy 07/15/16. - Revision 08/13/[address] Faulkner. - exploration under anesthesia with fixation of the skin so that a colostomy appliance can fit better Acute kidney injury - dehydration - prerenal acidemia - Duke in place. - Monitor intake and output closely. - Avoid nephrotoxins Sepsis - On Zosyn, adjusted per renal function. - Has received vancomycin one dose 08/13 - ID input appreciated - Followup blood cultures, Bronchial washings RML, urine culture DVT/GI prophylaxes: - Heparin subcutaneous, Protonix 40 mg IV daily ACCESS: Port in place L chest. R IJ CVL placed 08/14 #2. SOCIAL: Neglect. DCF previously notified. Level 3 Diego Vanegas MD Aug 15, 2016 14:35 U/s bilateral lower extremity negative for DVT 06/01 ENDO: Low-dose ISS for glycemic control while on steroids, accucheck q6. PROPH: Heparin subcutaneous for DVT prophylaxis when okay with Dr. Faulkner. Protonix 40 mg IV daily for stress ulcer prophylaxis. ACCESS: Port in place L chest. R IJ CVL placed 08/14 #1. SOCIAL: Neglect. DCF previously notified. Discussed with Dr. Hernandez at bedside. CCT 60 minutes exclusive of separately billable procedures. Voda,Diego MD Aug 15, 2016 14:35
[2016-08-15] MEDS ORDERED: PHARMACY ORDERED LAB XX ONE (17:00)
[2016-08-15] MEDS: diphenhydrAMINE HCL 25 MG CAP PO PRN (20:38)
--- NOTE | 2016-08-15 23:17 | HHI.IDPN ---
Subjective Subjective Remarks LE - pt was seen earlier today clearly better today extubated more alert BC growing a GNR Antibiotics PO vanco+ zosyn Allergies: Coded Allergies: MRI PRECAUTION (Verified Adverse Reaction, Severe, ANEURYSM CLIP PER DR. [id number]-09/08/09, 05/31/16) *MDRO Multi-Drug Resistant Organism (Verified Adverse Reaction, Unknown, MRSA, 08/14/16) MRSA (sputum) - 10/2004 & 11/2004 Objective . Vital Signs Date Time Temp Pulse Resp B/P Pulse Ox O2 Delivery O2 Flow Rate FiO2 08/15/16 19:10 97 Nasal Cannula 2.00 08/15/16 16:00 98.6 98 17 122/70 100 08/15/16 15:00 94 08/15/16 12:00 97.8 94 17 118/68 100 08/15/16 10:24 97 Nasal Cannula 2.00 08/15/16 09:39 99 40 08/15/16 08:00 40 08/15/16 08:00 97.6 77 13 125/74 100 08/15/16 07:00 88 08/15/16 04:12 100 40 08/15/16 04:00 99.0 102 16 138/88 100 08/15/16 04:00 40 08/15/16 00:00 40 08/15/16 00:00 97.6 108 12 143/96 100 08/14/16 23:44 100 40 08/14/16 08/14/16 08/15/16 14:59 22:59 06:59 Intake Total 4934 ml 1023 ml 1729 ml Output Total 700 ml 575 ml 1250 ml Balance 4234 ml 448 ml 479 ml IV Total 4934 ml 763 ml 1469 ml Tube Feeding 0 ml 0 ml 0 ml Tube Irrigant 60 ml 60 ml Other 200 ml 200 ml Output Urine Total 450 ml 575 ml 1200 ml Stool Total 250 ml 0 ml 25 ml Drainage Total 0 ml 0 ml 25 ml . Laboratory Tests Test 08/14/16 08/15/16 02:52 05:00 White Blood Count 23.9 TH/MM3 19.5 TH/MM3 Red Blood Count 4.00 MIL/MM3 3.09 MIL/MM3 Hemoglobin 10.8 GM/DL 8.3 GM/DL Hematocrit 33.7 % 25.7 % Mean Corpuscular Volume 84.2 FL 83.1 FL Mean Corpuscular Hemoglobin 27.0 PG 26.9 PG Mean Corpuscular Hemoglobin 32.1 % 32.4 % Concent Red Cell Distribution Width 19.9 % 19.1 % Platelet Count 385 TH/MM3 221 TH/MM3 Mean Platelet Volume 8.6 FL 8.2 FL Neutrophils (%) (Auto) 89.3 % 92.6 % Lymphocytes (%) (Auto) 5.0 % 4.8 % Monocytes (%) (Auto) 4.4 % 2.2 % Eosinophils (%) (Auto) 0.9 % 0.1 % Basophils (%) (Auto) 0.4 % 0.3 % Neutrophils # (Auto) 21.3 TH/MM3 18.1 TH/MM3 Lymphocytes # (Auto) 1.2 TH/MM3 0.9 TH/MM3 Monocytes # (Auto) 1.0 TH/MM3 0.4 TH/MM3 Eosinophils # (Auto) 0.2 TH/MM3 0.0 TH/MM3 Basophils # (Auto) 0.1 TH/MM3 0.1 TH/MM3 CBC Comment DIFF FINAL DIFF FINAL Differential Comment Laboratory Tests Test 08/14/16 08/14/16 08/15/16 08/15/16 02:52 04:30 05:00 11:45 Sodium Level 149 MEQ/L 150 MEQ/L Potassium Level 3.8 MEQ/L 2.9 MEQ/L Chloride Level 109 MEQ/L 115 MEQ/L Carbon Dioxide Level 30.8 MEQ/L 25.7 MEQ/L Anion Gap 9 MEQ/L 9 MEQ/L Blood Urea Nitrogen 47 MG/DL 39 MG/DL Creatinine 2.24 MG/DL 1.38 MG/DL Estimat Glomerular Filtration 22 ML/MIN 39 ML/MIN Rate Random Glucose 162 MG/DL 165 MG/DL Calcium Level 8.6 MG/DL 8.1 MG/DL Phosphorus Level 5.4 MG/DL 4.2 MG/DL 4.3 MG/DL Magnesium Level 2.2 MG/DL 2.1 MG/DL Total Bilirubin 0.4 MG/DL 0.5 MG/DL Aspartate Amino Transf 32 U/L 29 U/L (AST/SGOT) Alanine Aminotransferase 37 U/L 30 U/L (ALT/SGPT) Alkaline Phosphatase 76 U/L 60 U/L Total Protein 7.0 GM/DL 5.6 GM/DL Albumin 2.1 GM/DL 1.4 GM/DL Lactic Acid Level 1.2 mmol/L Test 08/15/16 08/15/16 12:00 16:35 Potassium Level 2.9 MEQ/L 4.0 MEQ/L Microbiology Date/Time Procedure Status Source Growth 08/14/16 02:52 Aerobic Blood Culture - Preliminary Resulted Blood Peripheral NO GROWTH IN 1 DAY 08/14/16 02:52 Anaerobic Blood Culture - Preliminary Resulted Blood Peripheral NO GROWTH IN 1 DAY 08/14/16 02:55 Urine Culture - Final Complete Urine Catheterized Urine 08/14/16 03:10 Aerobic Blood Culture - Preliminary Resulted Blood Peripheral Gram Negative Inderjit 08/14/16 03:10 Anaerobic Blood Culture - Preliminary Resulted Blood Peripheral NO GROWTH IN 1 DAY 08/14/16 06:30 Gram Stain - Final Resulted Bronchial Washings Right Mid Lobe 08/14/16 06:30 Bronchial Culture - Preliminary Resulted Gram Negative Inderjit Imaging Last Impressions Chest X-Ray 08/14/16 0000 Signed Impressions: Service Date/Time: July 05:00 - CONCLUSION: 1. Appropriately positioned lines and tubes as above. 2. New right IJ central venous catheter with tip in the right atrium. No pneumothorax or other acute complication demonstrated. 3. No significant change mild right base consolidation. Aidan Felipe MD Abdomen/Pelvis CT 08/14/16 0000 Signed Impressions: Service Date/Time: July 15:44 - CONCLUSION: 1. There is no evidence for an intraabdominal process as the cause of sepsis. 2. There is mild prominence to both collecting systems, nonspecific. Vinay Avalos MD FACR Lower Extremity Ultrasound 06/01/16 0000 Signed Impressions: Service Date/Time: Wednesday, June 01, 2016 02:44 - CONCLUSION: No evidence of lower extremity DVT on the right or left. Rony Espinoza MD Head CT 05/31/16 0000 Signed Impressions: Service Date/Time: Tuesday, May 31, 2016 11:51 - CONCLUSION: 1. 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 2. Negative for an acute process. Vinay Avalos MD FACR Physical Exam CONSTITUTIONAL/GENERAL: This is an adequately nourished patient, in no apparent distress. awake alert TUBES/LINES/DRAINS: SKIN: No jaundice, Multiple excoriations present Skin temperature appropriate. Not diaphoretic. HEAD: Atraumatic. Normocephalic. EYES: Pupils equal and round and reactive. Extraocular motions intact. No scleral icterus. No injection or drainage. Fundi not examined. ENT: .Oral mucosae moist without visible erythema, exudates, masses, or lesions. NECK: Trachea midline. Supple, nontender. CARDIOVASCULAR: Regular rate and rhythm without murmurs, gallops, or rubs. No JVD. Peripheral pulses symmetric. RESPIRATORY/CHEST: Symmetric, unlabored respirations. Clear to auscultation. Breath sounds equal bilaterally. No wheezes, rales, or rhonchi. GASTROINTESTINAL: Abdomen soft, not much tender moderately distended. No hepato-splenomegaly, or palpable masses. No guarding. Bowel sounds hyperactive Colostomy with liquid stool GENITOURINARY: Without palpable bladder distension. Duke catheter in place. MUSCULOSKELETAL: Extremities without clubbing, cyanosis, or edema. . No mottling or clubbing. LYMPHATICS: No palpable cervical or supraclavicular adenopathy. NEUROLOGICAL: awake alert, confused; makes eye contact PSYCHIATRIC: unable to assess 2/2 clinical condition Assessment & Plan Remarks Neew episode of sepsis - seoptic shock C.diff hypervirulent 027 strain UTI, PSAE E.coli both S to zosyn Acute VDRF resolved ARF improving No e/o PNA stable Infected decubs, sp dicvertive colostomy New issue: GNR bacteremia - cont oral vanco, IV flagyl - cont zosyn, - dc IV vanco - fu blood clx untill final karen RN Lanette Adkins Dr, MD Aug 15, 2016 23:17
[2016-08-16] VITALS (12 sets, daily range): BP systolic 142–159; BP diastolic 85–100; PULSE 78–106; RESP 12–22; TEMP 97.6–98.3; O2SAT 94–99
[2016-08-16] MEDS: methylPREDNISolone SOD SUCC 40 MG/1 ML VIAL IV PUSH SCH ×4 (00:13→18:52)
[2016-08-16] MEDS: POTASSIUM PHOSPHATE/SODIUM PHOSPHATE 250 MG TAB PO SCH ×4 (00:13→18:52)
[2016-08-16] MEDS: PIPERACIL-TAZO 2.25 GM PREMIX 50 ML IV SCH ×2 (02:33→08:54)
[2016-08-16] MEDS: INSULIN ASPART SUPPLEMENTAL SCALE SQ SCH ×4 (02:42→21:00)
[2016-08-16] MEDS: RESP: ALBUTEROL 2.5 MG/IPRATROPIUM 0.5 MG NEB (SCH) NEB ×4 (04:22→20:00)
[2016-08-16] MEDS: metroNIDAZOLE 500 MG INJ 100 ML IV SCH ×3 (04:30→21:15)
[2016-08-16] MEDS: VANCOMYCIN 500 MG VIAL (FOR ORAL USE ONLY) PO SCH ×4 (04:30→21:15)
[2016-08-16 05:31] LABS: AUTOMATED NEUTROPHIL # 7.1 TH/MM3 (1.8-7.7); BASOPHIL % 0.1 % (0.0-2.0); HEMO FLAGS DIFF FINAL; LYMPH % 6.2 % (9.0-44.0); LYMPHOCYTE # 0.5 TH/MM3 (1.0-4.8); MEAN CELL VOLUME 83.2 FL (80.0-100.0); MEAN CORPUSCULAR HEMOGLOBIN 27.6 PG (27.0-34.0); MEAN CORPUSCULAR HGB CONC 33.2 % (32.0-36.0); MONO % 2.9 % (0.0-8.0); NEUT % 90.8 % (16.0-70.0); PLATELET COUNT 183 TH/MM3 (150-450); RED BLOOD COUNT 2.88 MIL/MM3 (4.00-5.30); RED CELL DISTRIBUTION WIDTH 19.2 % (11.6-17.2); WHITE BLOOD COUNT 7.8 TH/MM3 (4.0-11.0)
[2016-08-16] MEDS: FREE WATER G-TUBE SCH ×3 (05:41→22:00)
[2016-08-16 05:56] LABS: ANION GAP 9 MEQ/L (5-15); AST (GOT) 19 U/L (15-37); BICARBONATE 24.8 MEQ/L (21.0-32.0); BLOOD UREA NITROGEN 32 MG/DL (7-18); CHLORIDE 114 MEQ/L (98-107); GLOMERULAR FILTRATION RATE 58 ML/MIN (>89); POTASSIUM 3.2 MEQ/L (3.5-5.1); SODIUM (NA) 148 MEQ/L (136-145)
[2016-08-16 05:59] LABS: ALKALINE PHOSPHATASE 75 U/L (45-117); ALT (GPT) 28 U/L (10-53); TOTAL BILIRUBIN ADULT 0.3 MG/DL (0.2-1.0)
--- NOTE | 2016-08-16 06:22 | RADRPT ---
EXAM DATE/TIME: 08/16/2016 04:52 [facility] COMPARISON: CHEST SINGLE AP, August 15, 2016, 5:53. INDICATIONS : Pneumonia MEDICAL HISTORY : None. SURGICAL HISTORY : [place]-[id number] placement ENCOUNTER: Initial ACUITY: 1 day PAIN SCORE: 5/10 LOCATION: Bilateral chest FINDINGS: There has been interval extubation. Right central line remains in good position. Left chest port is a gain noted. There has been improvement in aeration with some degree of clearance of basilar infiltrat es. Cardiomediastinal contours are grossly stable. CONCLUSION: Interval extubation. Improving aeration. Aidan Dumont MD on August 16, 2016 at 6:19 Board Certified Radiologist. This report was verified electronically.
[2016-08-16] MEDS: CHLORHEXIDINE 0.12% (ORAL KIT) 15 ML CUP MT SCH ×2 (08:00→20:00)
[2016-08-16] MEDS: MULTIVITAMINS LIQUID 5 ML UDC PO SCH (08:52)
[2016-08-16] MEDS: PANTOPRAZOLE SODIUM 40 MG VIAL IV PUSH SCH (08:54)
[2016-08-16] MEDS: LACTATED RINGER'S 1000 ML INJ 1,000 ML IV SCH ×3 (08:55→16:40)
[2016-08-16] MEDS: hydrOXYzine PAMOATE 25 MG CAP PO SCH ×3 (08:56→18:52)
[2016-08-16] MEDS: SODIUM CHLORIDE 0.9% FLUSH 5 ML FLUSH IV FLUSH SCH ×2 (08:56→21:00)
[2016-08-16] MEDS: BACITRACIN TOP OINT 15 GM TUBE TOP SCH ×2 (08:56→21:00)
[2016-08-16] MEDS: COLLAGENASE OINT 30 GM TUBE TOP SCH (08:57)
[2016-08-16] MEDS: CALAMINE/PRAMOXINE LOTION 180 ML BTL TOPICAL SCH ×2 (08:57→21:00)
[2016-08-16] MEDS: BETAMETHASONE DIPROPIONATE 0.05% CREAM 15 GM TOPICAL SCH ×2 (08:57→21:00)
[2016-08-16] MEDS ORDERED: PHARMACY ORDERED LAB XX ONE ×2 (10:45)
[2016-08-16] MEDS: POTASSIUM CHLOR 40 MEQ PREMIX 100 ML IV PRN (10:54)
[2016-08-16] MEDS ORDERED: MISCELLANEOUS PHARMACY INFORMATION XX PRN (14:15)
[2016-08-16] MEDS ORDERED: ASP: Documented ESBL, MDR A baumannii or P. aeruginosa XX PRN (14:15)
--- NOTE | 2016-08-16 14:21 | HHI.IDPN ---
Subjective Subjective Remarks ID COVERAGE Notes reviewed Temps ok Not SOB, has good sats BC with Proteus Sputum with Proteus and Kleb ESBL+ Denies abdominal pain Antibiotics PO vanco+ zosyn Past Medical History Reviewed Allergies: Coded Allergies: MRI PRECAUTION (Verified Adverse Reaction, Severe, ANEURYSM CLIP PER DR. [id number]-09/08/09, 05/31/16) *MDRO Multi-Drug Resistant Organism (Verified Adverse Reaction, Unknown, MRSA, 08/14/16) MRSA (sputum) - 10/2004 & 11/2004 Objective . Vital Signs Date Time Temp Pulse Resp B/P Pulse Ox O2 Delivery O2 Flow Rate FiO2 08/16/16 14:00 106 08/16/16 12:00 104 08/16/16 12:00 98.1 97 19 150/100 97 08/16/16 10:00 92 08/16/16 08:00 78 08/16/16 08:00 97.8 98 15 148/89 94 08/16/16 06:00 98 08/16/16 04:00 98.3 92 14 156/85 96 08/16/16 04:00 92 08/16/16 02:00 95 08/16/16 00:00 101 08/16/16 00:00 98.0 102 17 142/85 99 08/15/16 22:00 96 08/15/16 20:00 97.7 100 21 144/83 97 Arterial Line 08/15/16 20:00 102 08/15/16 19:10 97 Nasal Cannula 2.00 08/15/16 16:00 98.6 98 17 122/70 100 08/15/16 15:00 94 08/15/16 08/15/16 08/16/16 14:59 22:59 06:59 Intake Total 1465 ml 1115 ml 1404 ml Output Total 895 ml 550 ml 435 ml Balance 570 ml 565 ml 969 ml IV Total 1265 ml 855 ml 1154 ml Tube Irrigant 60 ml 50 ml Other 200 ml 200 ml 200 ml Output Urine Total 625 ml 425 ml 325 ml Stool Total 260 ml 125 ml 100 ml Drainage Total 10 ml 0 ml 10 ml . Laboratory Tests Test 08/15/16 08/16/16 05:00 05:15 White Blood Count 19.5 TH/MM3 7.8 TH/MM3 Red Blood Count 3.09 MIL/MM3 2.88 MIL/MM3 Hemoglobin 8.3 GM/DL 8.0 GM/DL Hematocrit 25.7 % 24.0 % Mean Corpuscular Volume 83.1 FL 83.2 FL Mean Corpuscular Hemoglobin 26.9 PG 27.6 PG Mean Corpuscular Hemoglobin 32.4 % 33.2 % Concent Red Cell Distribution Width 19.1 % 19.2 % Platelet Count 221 TH/MM3 183 TH/MM3 Mean Platelet Volume 8.2 FL 8.3 FL Neutrophils (%) (Auto) 92.6 % 90.8 % Lymphocytes (%) (Auto) 4.8 % 6.2 % Monocytes (%) (Auto) 2.2 % 2.9 % Eosinophils (%) (Auto) 0.1 % 0.0 % Basophils (%) (Auto) 0.3 % 0.1 % Neutrophils # (Auto) 18.1 TH/MM3 7.1 TH/MM3 Lymphocytes # (Auto) 0.9 TH/MM3 0.5 TH/MM3 Monocytes # (Auto) 0.4 TH/MM3 0.2 TH/MM3 Eosinophils # (Auto) 0.0 TH/MM3 0.0 TH/MM3 Basophils # (Auto) 0.1 TH/MM3 0.0 TH/MM3 CBC Comment DIFF FINAL DIFF FINAL Differential Comment Laboratory Tests Test 08/15/16 08/15/16 08/15/16 08/15/16 05:00 11:45 12:00 16:35 Sodium Level 150 MEQ/L Potassium Level 2.9 MEQ/L 2.9 MEQ/L 4.0 MEQ/L Chloride Level 115 MEQ/L Carbon Dioxide Level 25.7 MEQ/L Anion Gap 9 MEQ/L Blood Urea Nitrogen 39 MG/DL Creatinine 1.38 MG/DL Estimat Glomerular Filtration 39 ML/MIN Rate Random Glucose 165 MG/DL Calcium Level 8.1 MG/DL Phosphorus Level 4.2 MG/DL 4.3 MG/DL Magnesium Level 2.1 MG/DL Total Bilirubin 0.5 MG/DL Aspartate Amino Transf 29 U/L (AST/SGOT) Alanine Aminotransferase 30 U/L (ALT/SGPT) Alkaline Phosphatase 60 U/L Total Protein 5.6 GM/DL Albumin 1.4 GM/DL Test 08/16/16 05:15 Sodium Level 148 MEQ/L Potassium Level 3.2 MEQ/L Chloride Level 114 MEQ/L Carbon Dioxide Level 24.8 MEQ/L Anion Gap 9 MEQ/L Blood Urea Nitrogen 32 MG/DL Creatinine 0.98 MG/DL Estimat Glomerular Filtration 58 ML/MIN Rate Random Glucose 152 MG/DL Calcium Level 8.3 MG/DL Phosphorus Level 2.9 MG/DL Magnesium Level 2.0 MG/DL Total Bilirubin 0.3 MG/DL Aspartate Amino Transf 19 U/L (AST/SGOT) Alanine Aminotransferase 28 U/L (ALT/SGPT) Alkaline Phosphatase 75 U/L Total Protein 6.1 GM/DL Albumin 1.8 GM/DL Microbiology Date/Time Procedure Status Source Growth 08/14/16 02:52 Aerobic Blood Culture - Preliminary Resulted Blood Peripheral NO GROWTH IN 2 DAYS 08/14/16 02:52 Anaerobic Blood Culture - Preliminary Resulted Blood Peripheral NO GROWTH IN 2 DAYS 08/14/16 02:55 Urine Culture - Final Complete Urine Catheterized Urine 08/14/16 03:10 Aerobic Blood Culture - Preliminary Resulted Blood Peripheral Proteus Species 08/14/16 03:10 Anaerobic Blood Culture - Preliminary Resulted Blood Peripheral NO GROWTH IN 2 DAYS 08/14/16 06:30 Gram Stain - Final Resulted Bronchial Washings Right Mid Lobe 08/14/16 06:30 Bronchial Culture - Preliminary Resulted Proteus Mirabilis Klebsiella Pneumoniae Esbl Pos Imaging Chest X-Ray 08/16/16 0600 Signed Impressions: Service Date/Time: Tuesday, August 16, 2016 04:52 - CONCLUSION: Interval extubation. Improving aeration. Aidan Dumont MD Chest X-Ray 08/15/16 0600 Signed Impressions: Service Date/Time: Monday, August 15, 2016 05:53 - CONCLUSION: Slight interval worsening in aeration. Aidan Dumont MD Chest X-Ray 08/14/16 0000 Signed Impressions: Service Date/Time: July 05:00 - CONCLUSION: 1. Appropriately positioned lines and tubes as above. 2. New right IJ central venous catheter with tip in the right atrium. No pneumothorax or other acute complication demonstrated. 3. No significant change mild right base consolidation. Aidan Felipe MD Abdomen/Pelvis CT 08/14/16 0000 Signed Impressions: Service Date/Time: July 15:44 - CONCLUSION: 1. There is no evidence for an intraabdominal process as the cause of sepsis. 2. There is mild prominence to both collecting systems, nonspecific. Vinay Avalos MD FACR Lower Extremity Ultrasound 06/01/16 0000 Signed Impressions: Service Date/Time: Wednesday, June 01, 2016 02:44 - CONCLUSION: No evidence of lower extremity DVT on the right or left. Rony Espinoza MD Head CT 05/31/16 0000 Signed Impressions: Service Date/Time: Tuesday, May 31, 2016 11:51 - CONCLUSION: 1. 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 2. Negative for an acute process. Vinay Avalos MD FACR Physical Exam CONSTITUTIONAL/GENERAL: Awake, and responding, not in distress SKIN: No jaundice, cool and dry. No rash. HEAD: Atraumatic. Normocephalic. EYES: Pupils equal and round and reactive. Extraocular motions intact. No scleral icterus. No injection or drainage. ENT: .Oral mucosae moist without visible erythema, exudates, masses, or lesions. NECK: Trachea midline. Supple, nontender. CARDIOVASCULAR: Regular rate and rhythm without murmurs, gallops, or rubs. No JVD. Peripheral pulses symmetric. RESPIRATORY/CHEST: Symmetric, unlabored respirations. Clear to auscultation. Breath sounds equal bilaterally. No wheezes, rales, or rhonchi. GASTROINTESTINAL: Abdomen soft, not much tender moderately distended. No hepato-splenomegaly, or palpable masses. No guarding. Bowel sounds hyperactive Colostomy with liquid stool GENITOURINARY: Without palpable bladder distension. Duke catheter in place. MUSCULOSKELETAL: Extremities without clubbing, cyanosis, or edema. . No mottling or clubbing. LYMPHATICS: No palpable cervical or supraclavicular adenopathy. NEUROLOGICAL: awake alert, responding PSYCHIATRIC: cooperative Assessment & Plan Remarks New sepsis, has Proteus sepsis, source, ?PNA, UTI C.diff hypervirulent 027 strain Acute VDRF resolved ARF improving Infected decubs, S/P diverting colostomy PLAN: Change Zosyn to Meropenem On oral Vanco and Flagyl Follow C/S Repeat UA and C/S Monitor progress Follow Ronda Doll MD Aug 16, 2016 14:20
[2016-08-16] MEDS: ENOXAPARIN SODIUM 40 MG/0.4 ML SYRINGE SQ SCH (14:59)
[2016-08-16] MEDS ORDERED: PIPERACIL-TAZO 3.375 GM PREMIX 50 ML IV SCH (15:00)
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
--- NOTE | 2016-08-16 15:34 | MP ---
cc: ANGELIQUE FAULKNER M.D. DATE OF SURGERY: 08/13/2016 PROCEDURE Colostomy revision. PREOPERATIVE DIAGNOSIS Skin separation at colostomy site. POSTOPERATIVE DIAGNOSIS Peristomal colostomy hernia with skin separation. ANESTHESIA LMA. SURGEON Dr. Faulkner. ESTIMATED BLOOD LOSS Less than 10 mL. FLUIDS 700 mL of crystalloid. COMPLICATIONS None. DRAINS None. SPECIMEN None. PROCEDURE IN DETAIL The patient was taken to the operating room and placed on the operating table in the supine position. After an adequate level of general endotracheal anesthesia was achieved, the abdomen was prepped and draped in the left lower quadrant around the colostomy site. Timeout was taken confirming the correct patient, site and procedure to be performed. The skin was opened medial to the double-barrel colostomy and dissection carried down to the fascia. The patient was noted to have a significant amount of herniated omental fat; there were no loops of small bowel and no colon or significant mesentery in the hernia. The patient previously had a relatively loose loop colostomy created and undersigned left the fascia slightly open to allow for ease of flow of stool. Given these findings, the fascia was closed down further with both 0 and #1 Prolene sutures in an interrupted fashion. This closed the fascial defect significantly and at the conclusion of this, the surgeon placed a finger down the afferent loop of the colostomy and it was felt to be widely patent all the way through the fascial defect. When this had been completed the subcutaneous tissue was partially closed with interrupted 3-0 Vicryl suture and the skin closed with 0 Prolene sutures to prevent separation and to allow for better fitting of the colostomy appliance. A 54-cm colostomy appliance was then brought up and the fitting cut to fit the colostomy. The wafer was applied after placing Mastisol on the skin. After fitting the appliance, a bag was applied and the patient was extubated and taken back to the recovery room in stable condition. Sponge, needle and instrument counts were reported to be correct. The patient tolerated the procedure well. MD WALT Linares/BJF /1:49 PM /3:15 PM
[2016-08-16] MEDS: POTASSIUM CL 40 MEQ/30 ML LIQ UDC GT SCH (15:45)
[2016-08-16] MEDS: MEROPENEM INJ 2,000 MG in SODIUM CHLORIDE 0.9% INJ 100 ML IV SCH (16:40)
[2016-08-16] MEDS: diphenhydrAMINE HCL 25 MG CAP PO PRN (21:45)
[2016-08-17] VITALS (13 sets, daily range): BP systolic 145–173; BP diastolic 71–108; PULSE 90–117; RESP 12–21; TEMP 97.5–98; O2SAT 95–100
[2016-08-17] MEDS: methylPREDNISolone SOD SUCC 40 MG/1 ML VIAL IV PUSH SCH ×4 (00:45→16:46)
[2016-08-17] MEDS: POTASSIUM PHOSPHATE/SODIUM PHOSPHATE 250 MG TAB PO SCH ×4 (00:45→16:46)
[2016-08-17] MEDS: INSULIN ASPART SUPPLEMENTAL SCALE SQ SCH ×4 (03:00→20:53)
[2016-08-17] MEDS: RESP: ALBUTEROL 2.5 MG/IPRATROPIUM 0.5 MG NEB (SCH) NEB ×4 (03:55→21:34)
[2016-08-17] MEDS: VANCOMYCIN 500 MG VIAL (FOR ORAL USE ONLY) PO SCH ×4 (04:00→20:52)
[2016-08-17] MEDS: metroNIDAZOLE 500 MG INJ 100 ML IV SCH ×3 (04:24→20:54)
[2016-08-17] MEDS: FREE WATER G-TUBE SCH ×3 (05:47→20:54)
[2016-08-17] MEDS: CHLORHEXIDINE 0.12% (ORAL KIT) 15 ML CUP MT SCH ×2 (07:46→20:00)
[2016-08-17] MEDS: MEROPENEM INJ 2,000 MG in SODIUM CHLORIDE 0.9% INJ 100 ML IV SCH ×4 (07:46→16:45)
[2016-08-17] MEDS: hydrOXYzine PAMOATE 25 MG CAP PO SCH ×3 (07:47→16:46)
[2016-08-17] MEDS: PANTOPRAZOLE SODIUM 40 MG VIAL IV PUSH SCH (07:47)
[2016-08-17] MEDS: BETAMETHASONE DIPROPIONATE 0.05% CREAM 15 GM TOPICAL SCH ×2 (07:48→20:53)
[2016-08-17] MEDS: COLLAGENASE OINT 30 GM TUBE TOP SCH (07:48)
[2016-08-17] MEDS: CALAMINE/PRAMOXINE LOTION 180 ML BTL TOPICAL SCH ×2 (07:48→20:53)
[2016-08-17] MEDS: MULTIVITAMINS LIQUID 5 ML UDC PO SCH (07:49)
[2016-08-17] MEDS: LACTATED RINGER'S 1000 ML INJ 1,000 ML IV SCH ×3 (07:49→16:46)
[2016-08-17] MEDS: SODIUM CHLORIDE 0.9% FLUSH 5 ML FLUSH IV FLUSH SCH ×2 (07:49→20:52)
[2016-08-17] MEDS: BACITRACIN TOP OINT 15 GM TUBE TOP SCH ×2 (07:49→20:54)
[2016-08-17] MEDS: ENALAPRILAT 1.25 MG/ML VIAL IV PRN (07:50)
[2016-08-17] MEDS: POTASSIUM CL 40 MEQ/30 ML LIQ UDC GT SCH (08:10)
[2016-08-17] MEDS ORDERED: METOPROLOL TARTRATE 25 MG TAB PO SCH (09:00)
[2016-08-17] MEDS: METOPROLOL TARTRATE 5 MG/5 ML VIAL IV PUSH PRN (11:08)
[2016-08-17] MEDS: cloNIDine HCL 0.1 MG TAB PO PRN (11:22)
[2016-08-17] MEDS: ENOXAPARIN SODIUM 40 MG/0.4 ML SYRINGE SQ SCH (12:45)
[2016-08-17] MEDS: RESP: ALBUTEROL 2.5 MG/IPRATROPIUM 0.5 MG NEB (PRN) INH (13:06)
[2016-08-17] MEDS ORDERED: FUROSEMIDE 20 MG/2 ML VIAL IV PUSH ONE (14:00)
--- NOTE | 2016-08-17 14:20 | HHI.IDPN ---
Subjective Subjective Remarks ID COVERAGE Notes reviewed Temps ok Looks SOB when talking, denies SOB Stool volume not a lot One BC with Proteus Sputum with Proteus, MSSA and Kleb ESBL+ Denies abdominal pain Antibiotics PO vanco Meropenem Past Medical History Reviewed Allergies: Coded Allergies: MRI PRECAUTION (Verified Adverse Reaction, Severe, ANEURYSM CLIP PER DR. [id number]-09/08/09, 05/31/16) *MDRO Multi-Drug Resistant Organism (Verified Adverse Reaction, Unknown, MRSA, 08/14/16) MRSA (sputum) - 10/2004 & 11/2004 Objective . Vital Signs Date Time Temp Pulse Resp B/P Pulse Ox O2 Delivery O2 Flow Rate FiO2 08/17/16 12:00 97.9 95 21 162/94 98 08/17/16 12:00 117 08/17/16 10:00 97 08/17/16 08:00 96 08/17/16 08:00 98.0 96 18 167/108 100 08/17/16 06:00 97 08/17/16 04:00 90 08/17/16 04:00 97.5 90 12 169/99 98 08/17/16 02:00 97 08/17/16 00:00 94 08/17/16 00:00 98.0 94 16 173/97 100 08/16/16 22:00 100 08/16/16 20:00 96 08/16/16 20:00 97.8 94 12 159/86 94 08/16/16 20:00 96 08/16/16 18:00 78 08/16/16 16:00 78 08/16/16 16:00 97.6 78 22 155/86 99 08/16/16 08/16/16 08/17/16 14:59 22:59 06:59 Intake Total 1420 ml 1328 ml 1657 ml Output Total 525 ml 260 ml 425 ml Balance 895 ml 1068 ml 1232 ml IV Total 1160 ml 1068 ml 1357 ml Tube Irrigant 60 ml 60 ml 100 ml Other 200 ml 200 ml 200 ml Output Urine Total 400 ml 200 ml 325 ml Stool Total 125 ml 60 ml 100 ml Drainage Total 0 ml 0 ml 0 ml . Laboratory Tests Test 08/16/16 05:15 White Blood Count 7.8 TH/MM3 Red Blood Count 2.88 MIL/MM3 Hemoglobin 8.0 GM/DL Hematocrit 24.0 % Mean Corpuscular Volume 83.2 FL Mean Corpuscular Hemoglobin 27.6 PG Mean Corpuscular Hemoglobin 33.2 % Concent Red Cell Distribution Width 19.2 % Platelet Count 183 TH/MM3 Mean Platelet Volume 8.3 FL Neutrophils (%) (Auto) 90.8 % Lymphocytes (%) (Auto) 6.2 % Monocytes (%) (Auto) 2.9 % Eosinophils (%) (Auto) 0.0 % Basophils (%) (Auto) 0.1 % Neutrophils # (Auto) 7.1 TH/MM3 Lymphocytes # (Auto) 0.5 TH/MM3 Monocytes # (Auto) 0.2 TH/MM3 Eosinophils # (Auto) 0.0 TH/MM3 Basophils # (Auto) 0.0 TH/MM3 CBC Comment DIFF FINAL Differential Comment Laboratory Tests Test 08/15/16 08/16/16 08/17/16 16:35 05:15 05:05 Potassium Level 4.0 MEQ/L 3.2 MEQ/L 3.3 MEQ/L Sodium Level 148 MEQ/L Chloride Level 114 MEQ/L Carbon Dioxide Level 24.8 MEQ/L Anion Gap 9 MEQ/L Blood Urea Nitrogen 32 MG/DL Creatinine 0.98 MG/DL 0.85 MG/DL Estimat Glomerular Filtration 58 ML/MIN 69 ML/MIN Rate Random Glucose 152 MG/DL Calcium Level 8.3 MG/DL Phosphorus Level 2.9 MG/DL Magnesium Level 2.0 MG/DL Total Bilirubin 0.3 MG/DL Aspartate Amino Transf 19 U/L (AST/SGOT) Alanine Aminotransferase 28 U/L (ALT/SGPT) Alkaline Phosphatase 75 U/L Total Protein 6.1 GM/DL Albumin 1.8 GM/DL Imaging Chest X-Ray 08/16/16 0600 Signed Impressions: Service Date/Time: Tuesday, August 16, 2016 04:52 - CONCLUSION: Interval extubation. Improving aeration. Aidan Dumont MD Chest X-Ray 08/15/16 0600 Signed Impressions: Service Date/Time: Monday, August 15, 2016 05:53 - CONCLUSION: Slight interval worsening in aeration. Aidan Dumont MD Chest X-Ray 08/14/16 0000 Signed Impressions: Service Date/Time: July 05:00 - CONCLUSION: 1. Appropriately positioned lines and tubes as above. 2. New right IJ central venous catheter with tip in the right atrium. No pneumothorax or other acute complication demonstrated. 3. No significant change mild right base consolidation. Aidan Felipe MD Abdomen/Pelvis CT 08/14/16 0000 Signed Impressions: Service Date/Time: July 15:44 - CONCLUSION: 1. There is no evidence for an intraabdominal process as the cause of sepsis. 2. There is mild prominence to both collecting systems, nonspecific. Vinay Avalos MD FACR Lower Extremity Ultrasound 06/01/16 0000 Signed Impressions: Service Date/Time: Wednesday, June 01, 2016 02:44 - CONCLUSION: No evidence of lower extremity DVT on the right or left. Rony Espinoza MD Head CT 05/31/16 0000 Signed Impressions: Service Date/Time: Tuesday, May 31, 2016 11:51 - CONCLUSION: 1. 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 2. Negative for an acute process. Vinay Avalos MD FACR Physical Exam CONSTITUTIONAL/GENERAL: Awake, and responding, looks dyspneic when talking SKIN: No jaundice, cool and dry. No rash. HEAD: Atraumatic. Normocephalic. EYES: Pupils equal and round and reactive. No scleral icterus. No injection or drainage. ENT: .Oral mucosae moist without visible erythema, exudates, masses, or lesions. NECK: Trachea midline. Supple, nontender. CARDIOVASCULAR: Regular rate and rhythm without murmurs, gallops, or rubs. No JVD. Peripheral pulses symmetric. RESPIRATORY/CHEST: Decreased BS at bases GASTROINTESTINAL: Abdomen soft, moderately distended, not tender. Colostomy with liquid stool GENITOURINARY: Without palpable bladder distension. [facility] catheter in place. MUSCULOSKELETAL: Extremities without clubbing, cyanosis, or edema. . No mottling or clubbing. LYMPHATICS: No palpable cervical or supraclavicular adenopathy. NEUROLOGICAL: awake alert, responding PSYCHIATRIC: cooperative Assessment & Plan Remarks New sepsis, has Proteus sepsis, source, ?PNA, UTI C.diff hypervirulent 027 strain Acute VDRF resolved ARF improving Infected decubs, S/P diverting colostomy PLAN: Continue Meropenem On oral Vanco and Flagyl Follow C/S Monitor progress Follow temps CXR tomorrow Ronda Francois MD Aug 17, 2016 14:20
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
[2016-08-17] MEDS: METOPROLOL TARTRATE 50 MG TAB PO SCH (16:47)
[2016-08-17] MEDS: LISINOPRIL 10 MG TAB PO SCH (20:52)
[2016-08-18] VITALS (15 sets, daily range): BP systolic 154–168; BP diastolic 73–99; PULSE 82–106; RESP 18–25; TEMP 97.5–99.2; O2SAT 98–100
[2016-08-18] MEDS: POTASSIUM PHOSPHATE/SODIUM PHOSPHATE 250 MG TAB PO SCH ×4 (01:29→16:24)
[2016-08-18] MEDS: methylPREDNISolone SOD SUCC 40 MG/1 ML VIAL IV PUSH SCH ×5 (01:29→23:59)
[2016-08-18] MEDS: METOPROLOL TARTRATE 50 MG TAB PO SCH ×3 (01:29→16:26)
[2016-08-18] MEDS: MEROPENEM INJ 2,000 MG in SODIUM CHLORIDE 0.9% INJ 100 ML IV SCH ×4 (01:42→23:59)
[2016-08-18] MEDS: ENALAPRILAT 1.25 MG/ML VIAL IV PRN ×2 (01:46→11:32)
[2016-08-18] MEDS: VANCOMYCIN 500 MG VIAL (FOR ORAL USE ONLY) PO SCH ×4 (02:56→19:45)
[2016-08-18] MEDS: INSULIN ASPART SUPPLEMENTAL SCALE SQ SCH ×4 (03:00→21:00)
[2016-08-18] MEDS: RESP: ALBUTEROL 2.5 MG/IPRATROPIUM 0.5 MG NEB (SCH) NEB ×2 (04:12→08:19)
[2016-08-18] MEDS: FREE WATER G-TUBE SCH ×6 (04:59→21:27)
[2016-08-18] MEDS: metroNIDAZOLE 500 MG INJ 100 ML IV SCH ×3 (04:59→19:46)
--- NOTE | 2016-08-18 06:47 | RADRPT ---
EXAM DATE/TIME: 08/18/2016 05:18 [facility] COMPARISON: CHEST SINGLE AP, August 16, 2016, 4:52. INDICATIONS : Shortness of breath. MEDICAL HISTORY : None. SURGICAL HISTORY : Port placement. ENCOUNTER: Subsequent ACUITY: 4 - 6 days PAIN SCORE: Non-responsive. LOCATION: Bilateral chest FINDINGS: A single AP semierect view of the chest was obtained again demonstrates a right internal jugular cent ral venous line in place. The implantable left subclavian central venous line remains in place as wel l. There is increased hazy opacity now noted in the right perihilar region and right lung base as wel l as the left lung base. Both costophrenic angles appear mildly blunted. The patient is mildly rotate d to the left. The heart size appears at the upper limits of normal. There are multiple overlying dominick ctrocardiogram leads. The left costophrenic angle is cut off the exam. CONCLUSION: Interval increase in opacity in both lung bases as well as apparent bilateral effusio ns. The findings could indicate congestive heart failure. Zechariah Sutton MD on August 18, 2016 at 6:45 Board Certified Radiologist. This report was verified electronically.
[2016-08-18 06:50] LABS: BICARBONATE 25.6 MEQ/L (21.0-32.0)
[2016-08-18] MEDS: LACTATED RINGER'S 1000 ML INJ 1,000 ML IV SCH (07:20)
[2016-08-18] MEDS: hydrOXYzine PAMOATE 25 MG CAP PO SCH ×3 (08:34→16:25)
[2016-08-18] MEDS: PANTOPRAZOLE SODIUM 40 MG VIAL IV PUSH SCH (08:34)
[2016-08-18] MEDS: LISINOPRIL 10 MG TAB PO SCH ×2 (08:34→19:44)
[2016-08-18] MEDS: SODIUM CHLORIDE 0.9% FLUSH 5 ML FLUSH IV FLUSH SCH ×2 (08:35→19:43)
[2016-08-18] MEDS: MULTIVITAMINS LIQUID 5 ML UDC PO SCH (08:35)
[2016-08-18] MEDS: COLLAGENASE OINT 30 GM TUBE TOP SCH (08:36)
[2016-08-18] MEDS: BACITRACIN TOP OINT 15 GM TUBE TOP SCH ×2 (08:36→19:44)
[2016-08-18] MEDS: CALAMINE/PRAMOXINE LOTION 180 ML BTL TOPICAL SCH ×2 (08:36→19:44)
[2016-08-18] MEDS: CHLORHEXIDINE 0.12% (ORAL KIT) 15 ML CUP MT SCH ×2 (08:36→19:43)
[2016-08-18] MEDS: BETAMETHASONE DIPROPIONATE 0.05% CREAM 15 GM TOPICAL SCH ×2 (08:36→19:46)
[2016-08-18] MEDS: POTASSIUM CL 40 MEQ/30 ML LIQ UDC GT SCH (08:45)
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
[2016-08-18] MEDS: cloNIDine HCL 0.1 MG TAB PO PRN (10:18)
[2016-08-18] MEDS: POTASSIUM CHLOR 40 MEQ PREMIX 100 ML IV PRN ×2 (10:27→12:34)
[2016-08-18] MEDS: diphenhydrAMINE HCL 25 MG CAP PO PRN (11:31)
[2016-08-18] MEDS: ENOXAPARIN SODIUM 40 MG/0.4 ML SYRINGE SQ SCH (12:34)
[2016-08-18] MEDS: RESP: ALBUTEROL 2.5 MG/IPRATROPIUM 0.5 MG NEB (PRN) INH (17:33)
[2016-08-19] VITALS (13 sets, daily range): BP systolic 153–177; BP diastolic 78–112; PULSE 56–84; RESP 17–19; TEMP 97–98.8; O2SAT 98–100
[2016-08-19] MEDS: METOPROLOL TARTRATE 50 MG TAB PO SCH ×3 (00:06→16:41)
[2016-08-19] MEDS: POTASSIUM PHOSPHATE/SODIUM PHOSPHATE 250 MG TAB PO SCH ×4 (00:06→16:41)
[2016-08-19] MEDS: VANCOMYCIN 500 MG VIAL (FOR ORAL USE ONLY) PO SCH ×4 (02:59→23:00)
[2016-08-19] MEDS: cloNIDine HCL 0.1 MG TAB PO PRN ×3 (02:59→19:28)
[2016-08-19] MEDS: INSULIN ASPART SUPPLEMENTAL SCALE SQ SCH ×4 (03:00→21:00)
[2016-08-19 03:37] LABS: AUTOMATED NEUTROPHIL # 7.4 TH/MM3 (1.8-7.7); BASOPHIL % 0.1 % (0.0-2.0); HEMATOCRIT 26.5 % (35.0-46.0); LYMPH % 6.4 % (9.0-44.0); LYMPHOCYTE # 0.5 TH/MM3 (1.0-4.8); MEAN CELL VOLUME 83.3 FL (80.0-100.0); MEAN CORPUSCULAR HEMOGLOBIN 27.1 PG (27.0-34.0); MEAN CORPUSCULAR HGB CONC 32.5 % (32.0-36.0); MONO % 2.4 % (0.0-8.0); NEUT % 91.1 % (16.0-70.0); PLATELET COUNT 212 TH/MM3 (150-450); RED BLOOD COUNT 3.18 MIL/MM3 (4.00-5.30); RED CELL DISTRIBUTION WIDTH 18.2 % (11.6-17.2); WHITE BLOOD COUNT 8.1 TH/MM3 (4.0-11.0)
[2016-08-19 03:50] LABS: ANION GAP 4 MEQ/L (5-15); BLOOD UREA NITROGEN 27 MG/DL (7-18); CHLORIDE 115 MEQ/L (98-107); GLOMERULAR FILTRATION RATE 81 ML/MIN (>89); MAGNESIUM 1.9 MG/DL (1.5-2.5); POTASSIUM 4.3 MEQ/L (3.5-5.1); SODIUM (NA) 149 MEQ/L (136-145)
[2016-08-19 03:53] LABS: FERRITIN 96 NG/ML (8-252); TRANSFERRIN IRON PROFILE 158 MG/DL (200-360)
[2016-08-19 03:54] LABS: HEMO FLAGS AUTO DIFF
[2016-08-19 04:34] LABS: BANDS 6 % (0-6); METAMYELOCYTES 5 % (0-1); MYELOCYTES 3 % (0-0); NEUTROPHIL # MANUAL DIFF 7.9 TH/MM3 (1.8-7.7); PLATELET ESTIMATE SMEAR NORMAL (NORMAL); PLATELET MORPHOLOGY NORMAL (NORMAL); POLYS (SEG NEUTROPHILS) 84 % (16-70); SCAN/DIFF FINAL DIFF MANUAL; WBC DIFF SAMPLE 100
[2016-08-19 04:35] LABS: DOHLE BODIES PRESENT (NONE SEEN)
[2016-08-19] MEDS: metroNIDAZOLE 500 MG INJ 100 ML IV SCH ×2 (05:15→12:04)
[2016-08-19] MEDS: FREE WATER G-TUBE SCH ×6 (06:00→22:00)
[2016-08-19] MEDS: methylPREDNISolone SOD SUCC 40 MG/1 ML VIAL IV PUSH SCH ×3 (06:00→16:41)
[2016-08-19] MEDS: ENALAPRILAT 1.25 MG/ML VIAL IV PRN ×2 (06:37→13:58)
[2016-08-19] MEDS: MEROPENEM INJ 2,000 MG in SODIUM CHLORIDE 0.9% INJ 100 ML IV SCH ×2 (07:46→15:51)
[2016-08-19] MEDS: LISINOPRIL 10 MG TAB PO SCH ×2 (07:46→19:29)
[2016-08-19] MEDS: hydrOXYzine PAMOATE 25 MG CAP PO SCH ×3 (07:46→16:41)
[2016-08-19] MEDS: MULTIVITAMINS LIQUID 5 ML UDC PO SCH (07:46)
[2016-08-19] MEDS: POTASSIUM CL 40 MEQ/30 ML LIQ UDC GT SCH (07:47)
[2016-08-19] MEDS: PANTOPRAZOLE SODIUM 40 MG VIAL IV PUSH SCH (07:47)
[2016-08-19] MEDS: SODIUM CHLORIDE 0.9% FLUSH 5 ML FLUSH IV FLUSH SCH ×2 (07:47→19:29)
[2016-08-19] MEDS: CHLORHEXIDINE 0.12% (ORAL KIT) 15 ML CUP MT SCH ×2 (07:47→19:29)
[2016-08-19] MEDS: CALAMINE/PRAMOXINE LOTION 180 ML BTL TOPICAL SCH ×2 (07:48→23:00)
[2016-08-19] MEDS: BACITRACIN TOP OINT 15 GM TUBE TOP SCH ×2 (07:48→23:00)
[2016-08-19] MEDS: BETAMETHASONE DIPROPIONATE 0.05% CREAM 15 GM TOPICAL SCH ×2 (07:48→23:00)
[2016-08-19] MEDS: ACETAMINOPHEN 325 MG TAB PO PRN (08:27)
[2016-08-19] MEDS: diphenhydrAMINE HCL 25 MG CAP PO PRN ×2 (08:27→19:28)
[2016-08-19] MEDS: EUCERIN CREAM 120 GM JAR TOPICAL PRN (08:28)
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
[2016-08-19] MEDS: ENOXAPARIN SODIUM 40 MG/0.4 ML SYRINGE SQ SCH (13:58)
[2016-08-19] MEDS ORDERED: FUROSEMIDE 20 MG/2 ML VIAL IV PUSH ONE (15:00)
[2016-08-19] MEDS: METOPROLOL TARTRATE 5 MG/5 ML VIAL IV PUSH PRN (18:56)
--- NOTE | 2016-08-19 19:13 | HHI.IDPN ---
Subjective Subjective Remarks on NC O2 afebrile Incoherent speech Antibiotics PO vanco Meropenem Past Medical History Reviewed Allergies: Coded Allergies: MRI PRECAUTION (Verified Adverse Reaction, Severe, ANEURYSM CLIP PER DR. [id number]-09/08/09, 05/31/16) *MDRO Multi-Drug Resistant Organism (Verified Adverse Reaction, Unknown, MRSA, 08/18/16) MRSA (sputum) - 10/2004 & 11/2004 ESBL Klebsiella Pneumoniae (bronc wash-08/14/16) Objective . Vital Signs Date Time Temp Pulse Resp B/P Pulse Ox O2 Delivery O2 Flow Rate FiO2 08/19/16 18:00 82 08/19/16 16:00 75 08/19/16 16:00 98.2 79 19 172/93 98 08/19/16 14:00 77 08/19/16 12:00 79 08/19/16 12:00 97.0 79 17 177/93 100 08/19/16 10:00 60 08/19/16 08:03 98 Nasal Cannula 2.00 08/19/16 08:00 67 08/19/16 08:00 98.5 67 18 167/85 100 08/19/16 06:00 82 08/19/16 04:00 97.4 76 17 153/78 98 08/19/16 04:00 76 08/19/16 02:00 61 08/19/16 00:00 84 08/19/16 00:00 98.8 84 19 163/112 100 08/18/16 22:00 84 08/18/16 20:00 88 08/18/16 20:00 97.5 88 25 168/95 99 08/18/16 19:30 100 Nasal Cannula 3.00 08/18/16 08/18/16 08/19/16 15:00 23:00 07:00 Intake Total 1402 ml 1717 ml Output Total 950 ml 1875 ml Balance 452 ml -158 ml IV Total 693 ml 547 ml Tube Feeding 309 ml 770 ml Other 400 ml 400 ml Output Urine Total 550 ml 1650 ml Stool Total 350 ml 225 ml Drainage Total 50 ml 0 ml . Laboratory Tests Test 08/19/16 03:15 White Blood Count 8.1 TH/MM3 Red Blood Count 3.18 MIL/MM3 Hemoglobin 8.6 GM/DL Hematocrit 26.5 % Mean Corpuscular Volume 83.3 FL Mean Corpuscular Hemoglobin 27.1 PG Mean Corpuscular Hemoglobin 32.5 % Concent Red Cell Distribution Width 18.2 % Platelet Count 212 TH/MM3 Mean Platelet Volume 8.7 FL Neutrophils (%) (Auto) 91.1 % Lymphocytes (%) (Auto) 6.4 % Monocytes (%) (Auto) 2.4 % Eosinophils (%) (Auto) 0.0 % Basophils (%) (Auto) 0.1 % Neutrophils # (Auto) 7.4 TH/MM3 Lymphocytes # (Auto) 0.5 TH/MM3 Monocytes # (Auto) 0.2 TH/MM3 Eosinophils # (Auto) 0.0 TH/MM3 Basophils # (Auto) 0.0 TH/MM3 CBC Comment AUTO DIFF Differential Total Cells 100 Counted Neutrophils % (Manual) 84 % Band Neutrophils % 6 % Lymphocytes % 2 % Neutrophils # (Manual) 7.9 TH/MM3 Metamyelocytes 5 % Myelocytes 3 % Differential Comment FINAL DIFF MANUAL Dohle Bodies PRESENT Platelet Estimate NORMAL Platelet Morphology Comment NORMAL Laboratory Tests Test 08/18/16 08/18/16 08/19/16 05:15 18:05 03:15 Sodium Level 151 MEQ/L 149 MEQ/L Potassium Level 3.0 MEQ/L 4.8 MEQ/L 4.3 MEQ/L Chloride Level 116 MEQ/L 115 MEQ/L Carbon Dioxide Level 25.6 MEQ/L 30.0 MEQ/L Anion Gap 9 MEQ/L 4 MEQ/L Blood Urea Nitrogen 30 MG/DL 27 MG/DL Creatinine 0.98 MG/DL 0.74 MG/DL Estimat Glomerular Filtration 58 ML/MIN 81 ML/MIN Rate Random Glucose 139 MG/DL 152 MG/DL Calcium Level 8.2 MG/DL 8.3 MG/DL Phosphorus Level 2.3 MG/DL Magnesium Level 1.9 MG/DL Iron Level 25 MCG/DL Total Iron Binding Capacity 221 MCG/DL Percent Iron Saturation 11.3 % Ferritin 96 NG/ML Imaging Last Impressions Chest X-Ray 08/18/16 0000 Signed Impressions: Service Date/Time: Thursday, August 18, 2016 05:18 - CONCLUSION: Interval increase in opacity in both lung bases as well as apparent bilateral effusions. The findings could indicate congestive heart failure. Zechariah Sutton MD Abdomen/Pelvis CT 08/14/16 0000 Signed Impressions: Service Date/Time: July 15:44 - CONCLUSION: 1. There is no evidence for an intraabdominal process as the cause of sepsis. 2. There is mild prominence to both collecting systems, nonspecific. Vinay Avalos MD FACR Lower Extremity Ultrasound 06/01/16 0000 Signed Impressions: Service Date/Time: Wednesday, June 01, 2016 02:44 - CONCLUSION: No evidence of lower extremity DVT on the right or left. Rony Espinoza MD Head CT 05/31/16 0000 Signed Impressions: Service Date/Time: Tuesday, May 31, 2016 11:51 - CONCLUSION: 1. 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 2. Negative for an acute process. Vinay Avalos MD FACR Physical Exam CONSTITUTIONAL/GENERAL: Awake, and responding, looks dyspneic when talking SKIN: No jaundice, cool and dry. No rash. Skin dry with excoriations HEAD: Atraumatic. Normocephalic. EYES: Pupils equal and round and reactive. No scleral icterus. No injection or drainage. ENT: .Oral mucosae moist without visible erythema, exudates, masses, or lesions. NECK: Trachea midline. Supple, nontender. CARDIOVASCULAR: Regular rate and rhythm without murmurs, gallops, or rubs. No JVD. Peripheral pulses symmetric. RESPIRATORY/CHEST: Decreased BS at bases GASTROINTESTINAL: Abdomen soft, moderately distended, not tender. Colostomy with liquid stool GENITOURINARY: Without palpable bladder distension. [facility] catheter in place. MUSCULOSKELETAL: Extremities without clubbing, cyanosis, or edema. . No mottling or clubbing. LYMPHATICS: No palpable cervical or supraclavicular adenopathy. NEUROLOGICAL: awake alert, responding speech incoherent Assessment & Plan Remarks Proteus sepsis, PNA, growing Proteus, ESBL Kleb and MSSA UTI E.coli, PSAE C.diff hypervirulent 027 strain Acute VDRF resolved ARF resolved Infected decubs, S/P diverting colostomy PLAN: Continue Meropenem Cont oral Vanco dc Flagyl monitor progress Lanette Adames MD Aug 19, 2016 19:12
[2016-08-20] VITALS (12 sets, daily range): BP systolic 140–188; BP diastolic 69–90; PULSE 58–94; RESP 14–25; TEMP 97.3–98.4; O2SAT 93–97
[2016-08-20] MEDS: methylPREDNISolone SOD SUCC 40 MG/1 ML VIAL IV PUSH SCH ×5 (00:32→23:28)
[2016-08-20] MEDS: MEROPENEM INJ 2,000 MG in SODIUM CHLORIDE 0.9% INJ 100 ML IV SCH ×4 (00:32→23:28)
[2016-08-20] MEDS: POTASSIUM PHOSPHATE/SODIUM PHOSPHATE 250 MG TAB PO SCH ×5 (00:33→23:27)
[2016-08-20] MEDS: VANCOMYCIN 500 MG VIAL (FOR ORAL USE ONLY) PO SCH ×4 (02:12→20:57)
[2016-08-20] MEDS: METOPROLOL TARTRATE 50 MG TAB PO SCH ×3 (02:12→16:18)
[2016-08-20] MEDS: INSULIN ASPART SUPPLEMENTAL SCALE SQ SCH ×4 (03:00→21:11)
[2016-08-20] MEDS: FREE WATER G-TUBE SCH ×6 (04:55→21:11)
[2016-08-20] MEDS: cloNIDine HCL 0.1 MG TAB PO PRN ×4 (06:01→23:27)
[2016-08-20 06:52] LABS: BICARBONATE 30.2 MEQ/L (21.0-32.0); POTASSIUM 3.7 MEQ/L (3.5-5.1)
[2016-08-20] MEDS: CHLORHEXIDINE 0.12% (ORAL KIT) 15 ML CUP MT SCH ×2 (08:00→20:00)
[2016-08-20] MEDS: BACITRACIN TOP OINT 15 GM TUBE TOP SCH ×2 (09:00→21:00)
[2016-08-20] MEDS: CALAMINE/PRAMOXINE LOTION 180 ML BTL TOPICAL SCH ×2 (09:00→21:00)
[2016-08-20] MEDS: BETAMETHASONE DIPROPIONATE 0.05% CREAM 15 GM TOPICAL SCH ×2 (09:00→21:00)
[2016-08-20] MEDS: POTASSIUM CL 40 MEQ/30 ML LIQ UDC GT SCH (09:06)
[2016-08-20] MEDS: PANTOPRAZOLE SODIUM 40 MG VIAL IV PUSH SCH (09:06)
[2016-08-20] MEDS: SODIUM CHLORIDE 0.9% FLUSH 5 ML FLUSH IV FLUSH SCH ×2 (09:06→21:00)
[2016-08-20] MEDS: LISINOPRIL 10 MG TAB PO SCH ×2 (09:07→20:56)
[2016-08-20] MEDS: hydrOXYzine PAMOATE 25 MG CAP PO SCH ×3 (09:07→18:04)
[2016-08-20] MEDS: MULTIVITAMINS LIQUID 5 ML UDC PO SCH (09:07)
[2016-08-20] MEDS: METOPROLOL TARTRATE 5 MG/5 ML VIAL IV PUSH PRN (10:55)
--- NOTE | 2016-08-20 11:17 | HHI.PR ---
Subjective Subjective Notes No changes Objective Vitals/I&O Vital Signs Date Time Temp Pulse Resp B/P Pulse Ox O2 Delivery O2 Flow Rate FiO2 08/20/16 10:00 80 08/20/16 08:00 97.9 16 159/74 93 08/19/16 08:03 Nasal Cannula 2.00 08/18/16 08:22 21 Labs Laboratory Tests Test 08/20/16 06:05 Sodium Level 147 Potassium Level 3.7 Chloride Level 111 Carbon Dioxide Level 30.2 Anion Gap 6 Blood Urea Nitrogen 27 Creatinine 0.68 Estimat Glomerular Filtration 89 Rate Random Glucose 199 Calcium Level 8.3 Lungs: Clear Narrative Exam Colostomy viable; stool in bag. Appliance changed by nurse; intact at present, with minimal drainage around medial suture. A/P Problem List: (1) Status post colostomy (2) Infected decubitus ulcer (3) History of CVA (cerebrovascular accident) (4) COPD (chronic obstructive pulmonary disease) (5) Neurocognitive disorder (6) Essential hypertension Assessment and Plan 60-year-old female with PMH CVA, sepsis with infected decubitus ulcer, healing now: Discussed with nurse and wound care nurse (Adrienne); sutures to be removed . Problem Qualifiers (1) Infected decubitus ulcer: Qualified Code: L89.95 - Infected decubitus ulcer, unstageable Zechariah Faulkner MD Aug 20, 2016 11:17
[2016-08-20] MEDS: ENOXAPARIN SODIUM 40 MG/0.4 ML SYRINGE SQ SCH (14:02)
[2016-08-20] MEDS: ENALAPRILAT 1.25 MG/ML VIAL IV PRN (14:03)
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
[2016-08-20] MEDS: FUROSEMIDE 40 MG/4 ML VIAL IV PUSH SCH (16:23)
[2016-08-20] MEDS: diphenhydrAMINE HCL 25 MG CAP PO PRN (23:28)
[2016-08-21] VITALS (11 sets, daily range): BP systolic 139–161; BP diastolic 71–99; PULSE 60–73; RESP 16–22; TEMP 96.1–98.8; O2SAT 92–95
[2016-08-21] MEDS: METOPROLOL TARTRATE 50 MG TAB PO SCH ×3 (01:41→16:38)
[2016-08-21] MEDS: VANCOMYCIN 500 MG VIAL (FOR ORAL USE ONLY) PO SCH ×4 (03:33→22:16)
[2016-08-21] MEDS: INSULIN ASPART SUPPLEMENTAL SCALE SQ SCH ×4 (03:33→21:00)
[2016-08-21] MEDS: POTASSIUM PHOSPHATE/SODIUM PHOSPHATE 250 MG TAB PO SCH ×3 (04:56→17:22)
[2016-08-21] MEDS: FREE WATER G-TUBE SCH ×5 (04:56→22:00)
[2016-08-21] MEDS: methylPREDNISolone SOD SUCC 40 MG/1 ML VIAL IV PUSH SCH ×3 (04:56→17:21)
[2016-08-21 05:32] LABS: AUTOMATED NEUTROPHIL # 7.3 TH/MM3 (1.8-7.7); BASOPHIL % 0.1 % (0.0-2.0); HEMATOCRIT 26.1 % (35.0-46.0); LYMPH % 8.3 % (9.0-44.0); LYMPHOCYTE # 0.7 TH/MM3 (1.0-4.8); MEAN CELL VOLUME 83.1 FL (80.0-100.0); MEAN CORPUSCULAR HEMOGLOBIN 27.4 PG (27.0-34.0); MEAN CORPUSCULAR HGB CONC 32.9 % (32.0-36.0); MONO % 3.3 % (0.0-8.0); NEUT % 88.3 % (16.0-70.0); PLATELET COUNT 247 TH/MM3 (150-450); RED BLOOD COUNT 3.14 MIL/MM3 (4.00-5.30); RED CELL DISTRIBUTION WIDTH 17.8 % (11.6-17.2); WHITE BLOOD COUNT 8.3 TH/MM3 (4.0-11.0)
[2016-08-21 05:35] LABS: HEMO FLAGS AUTO DIFF
[2016-08-21 05:51] LABS: BICARBONATE 29.9 MEQ/L (21.0-32.0); POTASSIUM 3.9 MEQ/L (3.5-5.1)
[2016-08-21 07:23] LABS: BANDS 1 % (0-6); MYELOCYTES 1 % (0-0); NEUTROPHIL # MANUAL DIFF 7.7 TH/MM3 (1.8-7.7); POLYS (SEG NEUTROPHILS) 91 % (16-70); WBC DIFF SAMPLE 100
[2016-08-21 07:24] LABS: PLATELET ESTIMATE SMEAR NORMAL (NORMAL); PLATELET MORPHOLOGY NORMAL (NORMAL); SCAN/DIFF FINAL DIFF MANUAL
[2016-08-21] MEDS: CHLORHEXIDINE 0.12% (ORAL KIT) 15 ML CUP MT SCH (08:00)
[2016-08-21] MEDS: MEROPENEM INJ 2,000 MG in SODIUM CHLORIDE 0.9% INJ 100 ML IV SCH ×2 (08:34→16:38)
[2016-08-21] MEDS: LISINOPRIL 10 MG TAB PO SCH ×2 (08:35→22:17)
[2016-08-21] MEDS: PANTOPRAZOLE SODIUM 40 MG VIAL IV PUSH SCH (08:35)
[2016-08-21] MEDS: POTASSIUM CL 40 MEQ/30 ML LIQ UDC GT SCH (08:35)
[2016-08-21] MEDS: FUROSEMIDE 40 MG/4 ML VIAL IV PUSH SCH (08:35)
[2016-08-21] MEDS: SODIUM CHLORIDE 0.9% FLUSH 5 ML FLUSH IV FLUSH SCH ×2 (08:35→21:00)
[2016-08-21] MEDS: BACITRACIN TOP OINT 15 GM TUBE TOP SCH ×2 (08:36→22:18)
[2016-08-21] MEDS: hydrOXYzine PAMOATE 25 MG CAP PO SCH ×3 (08:36→17:22)
[2016-08-21] MEDS: BETAMETHASONE DIPROPIONATE 0.05% CREAM 15 GM TOPICAL SCH ×2 (08:36→22:20)
[2016-08-21] MEDS: MULTIVITAMINS LIQUID 5 ML UDC PO SCH (08:36)
[2016-08-21] MEDS: CALAMINE/PRAMOXINE LOTION 180 ML BTL TOPICAL SCH ×2 (08:36→22:18)
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
[2016-08-21] MEDS: ENOXAPARIN SODIUM 40 MG/0.4 ML SYRINGE SQ SCH (14:09)
[2016-08-21] MEDS: diphenhydrAMINE HCL 25 MG CAP PO PRN (15:04)
[2016-08-21] MEDS: cloNIDine HCL 0.1 MG TAB PO PRN (17:22)
[2016-08-22] VITALS (7 sets, daily range): BP systolic 157–179; BP diastolic 86–97; PULSE 59–77; RESP 18–20; TEMP 95.4–97; O2SAT 92–97
[2016-08-22] MEDS: methylPREDNISolone SOD SUCC 40 MG/1 ML VIAL IV PUSH SCH ×5 (01:04→23:15)
[2016-08-22] MEDS: POTASSIUM PHOSPHATE/SODIUM PHOSPHATE 250 MG TAB PO SCH ×5 (01:05→23:15)
[2016-08-22] MEDS: METOPROLOL TARTRATE 50 MG TAB PO SCH ×3 (01:05→17:24)
[2016-08-22] MEDS: MEROPENEM INJ 2,000 MG in SODIUM CHLORIDE 0.9% INJ 100 ML IV SCH ×4 (01:45→23:15)
[2016-08-22] MEDS: INSULIN ASPART SUPPLEMENTAL SCALE SQ SCH ×4 (03:00→21:00)
[2016-08-22] MEDS: VANCOMYCIN 500 MG VIAL (FOR ORAL USE ONLY) PO SCH ×4 (04:05→21:30)
[2016-08-22] MEDS: cloNIDine HCL 0.1 MG TAB PO PRN ×3 (04:51→23:21)
[2016-08-22] MEDS: FREE WATER G-TUBE SCH ×3 (04:57→21:30)
[2016-08-22 05:41] LABS: AUTOMATED NEUTROPHIL # 8.1 TH/MM3 (1.8-7.7); BASOPHIL % 0.2 % (0.0-2.0); EOSINOPHIL % 0.1 % (0.0-4.0); HEMATOCRIT 28.2 % (35.0-46.0); LYMPH % 6.6 % (9.0-44.0); LYMPHOCYTE # 0.6 TH/MM3 (1.0-4.8); MEAN CELL VOLUME 83.4 FL (80.0-100.0); MEAN CORPUSCULAR HEMOGLOBIN 27.3 PG (27.0-34.0); MEAN CORPUSCULAR HGB CONC 32.8 % (32.0-36.0); MONO % 2.8 % (0.0-8.0); NEUT % 90.3 % (16.0-70.0); PLATELET COUNT 253 TH/MM3 (150-450); RED BLOOD COUNT 3.38 MIL/MM3 (4.00-5.30)
[2016-08-22 05:58] LABS: HEMO FLAGS AUTO DIFF
[2016-08-22 06:01] LABS: BICARBONATE 28.4 MEQ/L (21.0-32.0); POTASSIUM 3.9 MEQ/L (3.5-5.1)
[2016-08-22] MEDS: LISINOPRIL 10 MG TAB PO SCH ×2 (08:57→21:28)
[2016-08-22] MEDS: POTASSIUM CL 40 MEQ/30 ML LIQ UDC GT SCH (08:57)
[2016-08-22] MEDS: hydrOXYzine PAMOATE 25 MG CAP PO SCH ×3 (08:57→17:24)
[2016-08-22] MEDS: MULTIVITAMINS LIQUID 5 ML UDC PO SCH (08:57)
[2016-08-22] MEDS: FUROSEMIDE 40 MG/4 ML VIAL IV PUSH SCH (08:58)
[2016-08-22] MEDS: PANTOPRAZOLE SODIUM 40 MG VIAL IV PUSH SCH (08:59)
[2016-08-22] MEDS: CALAMINE/PRAMOXINE LOTION 180 ML BTL TOPICAL SCH ×2 (09:00→21:30)
[2016-08-22] MEDS: BACITRACIN TOP OINT 15 GM TUBE TOP SCH ×2 (09:25→21:30)
[2016-08-22] MEDS: BETAMETHASONE DIPROPIONATE 0.05% CREAM 15 GM TOPICAL SCH ×2 (09:25→21:30)
[2016-08-22] MEDS: SODIUM CHLORIDE 0.9% FLUSH 5 ML FLUSH IV FLUSH SCH ×2 (09:29→21:28)
[2016-08-22 09:50] LABS: BANDS 5 % (0-6); METAMYELOCYTES 2 % (0-1); NEUTROPHIL # MANUAL DIFF 8.7 TH/MM3 (1.8-7.7); POLYS (SEG NEUTROPHILS) 90 % (16-70); WBC DIFF SAMPLE 100
[2016-08-22 09:51] LABS: PLATELET ESTIMATE SMEAR NORMAL (NORMAL); PLATELET MORPHOLOGY NORMAL (NORMAL); SCAN/DIFF FINAL DIFF MANUAL
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
[2016-08-22] MEDS: ENOXAPARIN SODIUM 40 MG/0.4 ML SYRINGE SQ SCH (13:07)
[2016-08-23] VITALS: BP 170/83; PULSE 63; RESP 16; TEMP 97.8; O2SAT 95
[2016-08-23] MEDS: METOPROLOL TARTRATE 50 MG TAB PO SCH ×3 (01:18→16:40)
[2016-08-23] MEDS: VANCOMYCIN 500 MG VIAL (FOR ORAL USE ONLY) PO SCH ×4 (03:02→15:19)
[2016-08-23] MEDS: INSULIN ASPART SUPPLEMENTAL SCALE SQ SCH ×4 (03:02→23:51)
[2016-08-23 04:00] VITALS: BP 155/91; PULSE 62; RESP 16; TEMP 97.6; O2SAT 93
[2016-08-23] MEDS: FREE WATER G-TUBE SCH ×3 (05:48→22:00)
[2016-08-23] MEDS: methylPREDNISolone SOD SUCC 40 MG/1 ML VIAL IV PUSH SCH ×4 (05:48→23:32)
[2016-08-23] MEDS: POTASSIUM PHOSPHATE/SODIUM PHOSPHATE 250 MG TAB PO SCH ×4 (05:48→23:29)
[2016-08-23 06:29] LABS: AUTOMATED NEUTROPHIL # 6.8 TH/MM3 (1.8-7.7); BASOPHIL % 0.1 % (0.0-2.0); HEMATOCRIT 30.2 % (35.0-46.0); LYMPHOCYTE # 0.6 TH/MM3 (1.0-4.8); MEAN CELL VOLUME 82.6 FL (80.0-100.0); MEAN CORPUSCULAR HGB CONC 32.6 % (32.0-36.0); MONO % 3.3 % (0.0-8.0); NEUT % 88.6 % (16.0-70.0); PLATELET COUNT 261 TH/MM3 (150-450); RED BLOOD COUNT 3.66 MIL/MM3 (4.00-5.30); RED CELL DISTRIBUTION WIDTH 17.7 % (11.6-17.2); WHITE BLOOD COUNT 7.7 TH/MM3 (4.0-11.0)
[2016-08-23 06:41] LABS: HEMO FLAGS AUTO DIFF
[2016-08-23 07:02] LABS: BICARBONATE 27.3 MEQ/L (21.0-32.0); POTASSIUM 3.9 MEQ/L (3.5-5.1)
[2016-08-23 08:00] VITALS: BP 184/94; PULSE 60; RESP 20; TEMP 96.6; O2SAT 94
[2016-08-23] MEDS: MEROPENEM INJ 2,000 MG in SODIUM CHLORIDE 0.9% INJ 100 ML IV SCH ×3 (08:00→23:29)
[2016-08-23] MEDS: BACITRACIN TOP OINT 15 GM TUBE TOP SCH ×2 (09:00→21:00)
[2016-08-23] MEDS: BETAMETHASONE DIPROPIONATE 0.05% CREAM 15 GM TOPICAL SCH ×2 (09:00→21:00)
[2016-08-23] MEDS: CALAMINE/PRAMOXINE LOTION 180 ML BTL TOPICAL SCH ×2 (09:00→21:00)
[2016-08-23] MEDS: MULTIVITAMINS LIQUID 5 ML UDC PO SCH (09:00)
[2016-08-23] MEDS: POTASSIUM CL 40 MEQ/30 ML LIQ UDC GT SCH (09:31)
[2016-08-23] MEDS: SODIUM CHLORIDE 0.9% FLUSH 5 ML FLUSH IV FLUSH SCH ×2 (09:33→21:00)
[2016-08-23 09:36] LABS: SCAN/DIFF AUTO DIFF CONFIRMED
[2016-08-23] MEDS: FUROSEMIDE 40 MG/4 ML VIAL IV PUSH SCH (09:38)
[2016-08-23] MEDS: PANTOPRAZOLE SODIUM 40 MG VIAL IV PUSH SCH (09:39)
[2016-08-23] MEDS: hydrOXYzine PAMOATE 25 MG CAP PO SCH ×3 (09:43→16:46)
[2016-08-23] MEDS: LISINOPRIL 10 MG TAB PO SCH ×2 (09:43→23:31)
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
[2016-08-23] MEDS: ENOXAPARIN SODIUM 40 MG/0.4 ML SYRINGE SQ SCH (14:00)
[2016-08-23 16:00] VITALS: BP 167/93; PULSE 60; RESP 18; TEMP 96.3; O2SAT 95
[2016-08-23 20:00] VITALS: BP 153/87; PULSE 67; RESP 20; TEMP 96.9; O2SAT 94
[2016-08-24] VITALS: BP 147/91; PULSE 67; RESP 16; TEMP 98.7; O2SAT 99
[2016-08-24] MEDS: METOPROLOL TARTRATE 50 MG TAB PO SCH ×3 (01:00→16:59)
[2016-08-24] MEDS: VANCOMYCIN 500 MG VIAL (FOR ORAL USE ONLY) PO SCH ×4 (02:25→22:06)
[2016-08-24] MEDS: INSULIN ASPART SUPPLEMENTAL SCALE SQ SCH ×4 (03:00→21:00)
[2016-08-24 04:00] VITALS: BP 176/94; PULSE 76; RESP 30; TEMP 97.8; O2SAT 97
[2016-08-24] MEDS: POTASSIUM PHOSPHATE/SODIUM PHOSPHATE 250 MG TAB PO SCH ×4 (05:26→23:31)
[2016-08-24] MEDS: FREE WATER G-TUBE SCH ×3 (05:26→22:00)
[2016-08-24] MEDS: methylPREDNISolone SOD SUCC 40 MG/1 ML VIAL IV PUSH SCH ×4 (05:26→23:31)
[2016-08-24 08:00] VITALS: BP 173/95; PULSE 67; RESP 17; TEMP 95; O2SAT 95
[2016-08-24] MEDS: PETROLATUM 49%/ZINC OXIDE 15% 4 OUNCE TUBE TOPICAL SCH (09:00)
[2016-08-24] MEDS: MEROPENEM INJ 2,000 MG in SODIUM CHLORIDE 0.9% INJ 100 ML IV SCH ×2 (09:42→15:17)
[2016-08-24] MEDS: PANTOPRAZOLE SODIUM 40 MG VIAL IV PUSH SCH (09:49)
[2016-08-24] MEDS: MULTIVITAMINS LIQUID 5 ML UDC PO SCH (09:49)
[2016-08-24] MEDS: POTASSIUM CL 40 MEQ/30 ML LIQ UDC GT SCH (09:49)
[2016-08-24] MEDS: LISINOPRIL 10 MG TAB PO SCH ×2 (09:50→22:06)
[2016-08-24] MEDS: SODIUM CHLORIDE 0.9% FLUSH 5 ML FLUSH IV FLUSH SCH ×2 (09:50→22:06)
[2016-08-24] MEDS: hydrOXYzine PAMOATE 25 MG CAP PO SCH ×3 (09:50→16:59)
[2016-08-24] MEDS: CALAMINE/PRAMOXINE LOTION 180 ML BTL TOPICAL SCH ×2 (09:51→21:00)
[2016-08-24] MEDS: BETAMETHASONE DIPROPIONATE 0.05% CREAM 15 GM TOPICAL SCH ×2 (09:52→21:00)
[2016-08-24] MEDS: BACITRACIN TOP OINT 15 GM TUBE TOP SCH ×2 (09:55→21:00)
[2016-08-24 12:00] VITALS: BP 183/98; PULSE 68; RESP 18; TEMP 96.4; O2SAT 99
[2016-08-24] MEDS: cloNIDine HCL 0.1 MG TAB PO PRN (12:25)
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
[2016-08-24] MEDS: ENOXAPARIN SODIUM 40 MG/0.4 ML SYRINGE SQ SCH (14:34)
[2016-08-24 16:00] VITALS: BP 150/82; PULSE 64; RESP 16; TEMP 96.4; O2SAT 96
[2016-08-24 20:00] VITALS: BP 177/93; PULSE 54; RESP 18; TEMP 96.6; O2SAT 96
[2016-08-24] MEDS: ENALAPRILAT 1.25 MG/ML VIAL IV PRN (22:08)
[2016-08-24] MEDS: SODIUM CHLORIDE 0.9% FLUSH 5 ML FLUSH IV FLUSH PRN (23:34)
[2016-08-25] VITALS (7 sets, daily range): BP systolic 118–202; BP diastolic 92–107; PULSE 60–87; RESP 18–20; TEMP 95.5–98.4; O2SAT 93–99
[2016-08-25] MEDS: METOPROLOL TARTRATE 50 MG TAB PO SCH ×3 (01:00→17:16)
[2016-08-25] MEDS: ONDANSETRON HCL 4 MG/2 ML VIAL IV PRN ×3 (01:47→15:42)
[2016-08-25] MEDS: INSULIN ASPART SUPPLEMENTAL SCALE SQ SCH ×4 (02:09→22:36)
[2016-08-25] MEDS: VANCOMYCIN 500 MG VIAL (FOR ORAL USE ONLY) PO SCH ×4 (02:23→22:19)
[2016-08-25] MEDS: methylPREDNISolone SOD SUCC 40 MG/1 ML VIAL IV PUSH SCH ×3 (05:02→17:16)
[2016-08-25] MEDS: ENALAPRILAT 1.25 MG/ML VIAL IV PRN (05:03)
[2016-08-25] MEDS: cloNIDine HCL 0.1 MG TAB PO PRN (05:03)
[2016-08-25] MEDS: POTASSIUM PHOSPHATE/SODIUM PHOSPHATE 250 MG TAB PO SCH ×3 (05:03→17:16)
[2016-08-25] MEDS: FREE WATER G-TUBE SCH ×3 (05:23→22:00)
[2016-08-25] MEDS: MEROPENEM INJ 2,000 MG in SODIUM CHLORIDE 0.9% INJ 100 ML IV SCH ×4 (08:01→17:16)
[2016-08-25] MEDS: SODIUM CHLORIDE 0.9% FLUSH 5 ML FLUSH IV FLUSH SCH ×2 (08:03→21:00)
[2016-08-25] MEDS: MULTIVITAMINS LIQUID 5 ML UDC PO SCH (08:04)
[2016-08-25] MEDS: POTASSIUM CL 40 MEQ/30 ML LIQ UDC GT SCH (08:05)
[2016-08-25] MEDS: PANTOPRAZOLE SODIUM 40 MG VIAL IV PUSH SCH (08:06)
[2016-08-25] MEDS: hydrOXYzine PAMOATE 25 MG CAP PO SCH ×3 (08:06→17:16)
[2016-08-25] MEDS: LISINOPRIL 10 MG TAB PO SCH ×2 (08:07→22:20)
[2016-08-25] MEDS: CALAMINE/PRAMOXINE LOTION 180 ML BTL TOPICAL SCH ×2 (08:11→22:20)
[2016-08-25] MEDS: BACITRACIN TOP OINT 15 GM TUBE TOP SCH ×2 (08:12→22:20)
[2016-08-25] MEDS: BETAMETHASONE DIPROPIONATE 0.05% CREAM 15 GM TOPICAL SCH ×2 (08:13→21:00)
[2016-08-25] MEDS: PETROLATUM 49%/ZINC OXIDE 15% 4 OUNCE TUBE TOPICAL SCH (08:14)
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
[2016-08-25] MEDS: RESP: ALBUTEROL 2.5 MG/IPRATROPIUM 0.5 MG NEB (PRN) INH (11:37)
[2016-08-25] MEDS: ENOXAPARIN SODIUM 40 MG/0.4 ML SYRINGE SQ SCH (14:26)
[2016-08-26] VITALS (7 sets, daily range): BP systolic 122–206; BP diastolic 68–106; PULSE 68–80; RESP 18–20; TEMP 95.9–99.5; O2SAT 90–96
[2016-08-26] MEDS: MEROPENEM INJ 2,000 MG in SODIUM CHLORIDE 0.9% INJ 100 ML IV SCH ×3 (01:15→16:59)
[2016-08-26] MEDS: POTASSIUM PHOSPHATE/SODIUM PHOSPHATE 250 MG TAB PO SCH ×4 (01:15→17:00)
[2016-08-26] MEDS: METOPROLOL TARTRATE 50 MG TAB PO SCH ×3 (01:15→17:00)
[2016-08-26] MEDS: methylPREDNISolone SOD SUCC 40 MG/1 ML VIAL IV PUSH SCH ×4 (01:15→17:00)
[2016-08-26] MEDS: INSULIN ASPART SUPPLEMENTAL SCALE SQ SCH ×4 (03:00→21:37)
[2016-08-26] MEDS: FREE WATER G-TUBE SCH ×3 (04:17→21:31)
[2016-08-26] MEDS: VANCOMYCIN 500 MG VIAL (FOR ORAL USE ONLY) PO SCH ×4 (04:27→21:30)
[2016-08-26] MEDS: RESP: ALBUTEROL 2.5 MG/IPRATROPIUM 0.5 MG NEB (PRN) INH (07:59)
[2016-08-26] MEDS: PETROLATUM 49%/ZINC OXIDE 15% 4 OUNCE TUBE TOPICAL SCH (09:00)
[2016-08-26] MEDS: POTASSIUM CL 40 MEQ/30 ML LIQ UDC GT SCH (09:32)
[2016-08-26] MEDS: MULTIVITAMINS LIQUID 5 ML UDC PO SCH (09:32)
[2016-08-26] MEDS: SODIUM CHLORIDE 0.9% FLUSH 5 ML FLUSH IV FLUSH SCH ×2 (09:33→21:30)
[2016-08-26] MEDS: PANTOPRAZOLE SODIUM 40 MG VIAL IV PUSH SCH (09:33)
[2016-08-26] MEDS: hydrOXYzine PAMOATE 25 MG CAP PO SCH ×3 (09:34→16:59)
[2016-08-26] MEDS: CALAMINE/PRAMOXINE LOTION 180 ML BTL TOPICAL SCH ×2 (09:34→21:31)
[2016-08-26] MEDS: LISINOPRIL 10 MG TAB PO SCH ×2 (09:34→21:30)
[2016-08-26] MEDS: BACITRACIN TOP OINT 15 GM TUBE TOP SCH ×2 (09:34→21:31)
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
[2016-08-26] MEDS: EUCERIN CREAM 120 GM JAR TOPICAL PRN (11:15)
[2016-08-26] MEDS: BETAMETHASONE DIPROPIONATE 0.05% CREAM 15 GM TOPICAL SCH ×2 (11:20→21:31)
[2016-08-26] MEDS: ENOXAPARIN SODIUM 40 MG/0.4 ML SYRINGE SQ SCH (12:31)
[2016-08-27 00:03] VITALS: BP 121/84; PULSE 88; RESP 18; TEMP 98.2; O2SAT 95
[2016-08-27] MEDS: methylPREDNISolone SOD SUCC 40 MG/1 ML VIAL IV PUSH SCH ×4 (01:03→22:48)
[2016-08-27] MEDS: MEROPENEM INJ 2,000 MG in SODIUM CHLORIDE 0.9% INJ 100 ML IV SCH ×3 (01:03→15:21)
[2016-08-27] MEDS: POTASSIUM PHOSPHATE/SODIUM PHOSPHATE 250 MG TAB PO SCH ×4 (01:03→18:36)
[2016-08-27] MEDS: METOPROLOL TARTRATE 50 MG TAB PO SCH ×3 (01:10→15:22)
[2016-08-27] MEDS: FREE WATER G-TUBE SCH ×3 (05:54→21:50)
[2016-08-27] MEDS: VANCOMYCIN 500 MG VIAL (FOR ORAL USE ONLY) PO SCH ×4 (05:54→21:46)
[2016-08-27] MEDS: INSULIN ASPART SUPPLEMENTAL SCALE SQ SCH ×4 (06:03→21:00)
[2016-08-27 07:15] VITALS: BP 156/88; PULSE 67; RESP 20; TEMP 96.6; O2SAT 94
[2016-08-27] MEDS: EUCERIN CREAM 120 GM JAR TOPICAL PRN (07:51)
[2016-08-27] MEDS: CALAMINE/PRAMOXINE LOTION 180 ML BTL TOPICAL SCH ×2 (07:51→21:51)
[2016-08-27] MEDS: BETAMETHASONE DIPROPIONATE 0.05% CREAM 15 GM TOPICAL SCH ×2 (07:52→21:51)
[2016-08-27] MEDS: PETROLATUM 49%/ZINC OXIDE 15% 4 OUNCE TUBE TOPICAL SCH (07:52)
[2016-08-27] MEDS: POTASSIUM CL 40 MEQ/30 ML LIQ UDC GT SCH (07:53)
[2016-08-27] MEDS: PANTOPRAZOLE SODIUM 40 MG VIAL IV PUSH SCH (07:53)
[2016-08-27] MEDS: LISINOPRIL 10 MG TAB PO SCH ×2 (07:54→21:46)
[2016-08-27] MEDS: SODIUM CHLORIDE 0.9% FLUSH 5 ML FLUSH IV FLUSH SCH ×2 (07:54→21:46)
[2016-08-27] MEDS: hydrOXYzine PAMOATE 25 MG CAP PO SCH ×3 (07:54→18:36)
[2016-08-27] MEDS: RESP: ALBUTEROL 2.5 MG/IPRATROPIUM 0.5 MG NEB (PRN) INH (07:56)
[2016-08-27] MEDS: MULTIVITAMIN TAB PO SCH (09:11)
[2016-08-27] MEDS: BACITRACIN TOP OINT 15 GM TUBE TOP SCH ×2 (09:11→21:51)
[2016-08-27 09:45] LABS: BICARBONATE 24.5 MEQ/L (21.0-32.0); POTASSIUM 5.5 MEQ/L (3.5-5.1)
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
[2016-08-27] MEDS: ENOXAPARIN SODIUM 40 MG/0.4 ML SYRINGE SQ SCH (14:09)
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
[2016-08-27 15:03] LABS: AUTOMATED NEUTROPHIL # 9.1 TH/MM3 (1.8-7.7); BASOPHIL % 0.2 % (0.0-2.0); HEMATOCRIT 31.3 % (35.0-46.0); HEMO FLAGS DIFF FINAL; LYMPH % 3.6 % (9.0-44.0); LYMPHOCYTE # 0.4 TH/MM3 (1.0-4.8); MEAN CELL VOLUME 86.1 FL (80.0-100.0); MEAN CORPUSCULAR HEMOGLOBIN 27.6 PG (27.0-34.0); MEAN CORPUSCULAR HGB CONC 32.1 % (32.0-36.0); NEUT % 93.2 % (16.0-70.0); PLATELET COUNT 251 TH/MM3 (150-450); RED BLOOD COUNT 3.63 MIL/MM3 (4.00-5.30); RED CELL DISTRIBUTION WIDTH 17.9 % (11.6-17.2); WHITE BLOOD COUNT 9.8 TH/MM3 (4.0-11.0)
[2016-08-27 15:30] VITALS: BP 190/93; PULSE 55; RESP 20; TEMP 98.7; O2SAT 92
[2016-08-27 20:40] VITALS: BP 186/84; PULSE 60; RESP 19; TEMP 97.7; O2SAT 95
[2016-08-27 23:53] VITALS: BP 185/97; PULSE 63; RESP 18; TEMP 97; O2SAT 95
[2016-08-28] VITALS (7 sets, daily range): BP systolic 125–185; BP diastolic 63–94; PULSE 56–63; RESP 18–20; TEMP 95.4–97.4; O2SAT 92–96
[2016-08-28] MEDS: METOPROLOL TARTRATE 50 MG TAB PO SCH ×3 (00:20→17:00)
[2016-08-28] MEDS: MEROPENEM INJ 2,000 MG in SODIUM CHLORIDE 0.9% INJ 100 ML IV SCH ×4 (00:21→16:20)
[2016-08-28] MEDS: cloNIDine HCL 0.1 MG TAB PO PRN ×3 (00:25→11:57)
[2016-08-28] MEDS: INSULIN ASPART SUPPLEMENTAL SCALE SQ SCH ×4 (03:00→20:45)
[2016-08-28] MEDS: VANCOMYCIN 500 MG VIAL (FOR ORAL USE ONLY) PO SCH ×4 (04:49→21:15)
[2016-08-28] MEDS: FREE WATER G-TUBE SCH ×3 (04:53→22:00)
[2016-08-28] MEDS: POTASSIUM PHOSPHATE/SODIUM PHOSPHATE 250 MG TAB PO SCH ×4 (04:53→18:00)
[2016-08-28] MEDS: methylPREDNISolone SOD SUCC 40 MG/1 ML VIAL IV PUSH SCH ×3 (04:54→22:00)
[2016-08-28] MEDS ORDERED: SODIUM CHLORID 0.9% 500 ML IV SCH (05:15)
[2016-08-28] MEDS: ENALAPRILAT 1.25 MG/ML VIAL IV PRN (06:50)
[2016-08-28] MEDS: BACITRACIN TOP OINT 15 GM TUBE TOP SCH ×2 (08:55→21:00)
[2016-08-28] MEDS: POTASSIUM CL 40 MEQ/30 ML LIQ UDC GT SCH (08:55)
[2016-08-28] MEDS: hydrOXYzine PAMOATE 25 MG CAP PO SCH ×3 (08:57→18:00)
[2016-08-28] MEDS: LISINOPRIL 10 MG TAB PO SCH ×2 (08:57→21:00)
[2016-08-28] MEDS: MULTIVITAMIN TAB PO SCH (08:58)
[2016-08-28] MEDS: PANTOPRAZOLE SODIUM 40 MG VIAL IV PUSH SCH (09:00)
[2016-08-28] MEDS: PETROLATUM 49%/ZINC OXIDE 15% 4 OUNCE TUBE TOPICAL SCH (09:01)
[2016-08-28] MEDS: BETAMETHASONE DIPROPIONATE 0.05% CREAM 15 GM TOPICAL SCH ×2 (09:02→21:00)
[2016-08-28] MEDS: SODIUM CHLORIDE 0.9% FLUSH 5 ML FLUSH IV FLUSH SCH ×2 (09:16→21:00)
[2016-08-28] MEDS: CALAMINE/PRAMOXINE LOTION 180 ML BTL TOPICAL SCH ×2 (09:29→21:00)
[2016-08-28] MEDS: RESP: ALBUTEROL 2.5 MG/IPRATROPIUM 0.5 MG NEB (PRN) INH (11:46)
[2016-08-28] MEDS ORDERED: PROPOFOL 200 MG/20 ML AMP IV ONE (12:00)
[2016-08-28] MEDS ORDERED: NEOSTIGMINE 3 MG/3 ML SYR IV ONE (12:00)
[2016-08-28] MEDS ORDERED: ePHEDrine/NS 50 MG/5 ML SYR IV ONE (12:00)
[2016-08-28] MEDS ORDERED: LACTATED RINGER'S 1000 ML INJ 1,000 ML IV ONE (12:00)
[2016-08-28] MEDS ORDERED: PHENYLEPH/NS 1000 MCG/10 ML SYR IV ONE (12:00)
[2016-08-28] MEDS ORDERED: ONDANSETRON HCL 4 MG/2 ML VIAL IV PUSH ONE (12:00)
[2016-08-28] MEDS ORDERED: KETOROLAC TROMETHAMINE 60 MG/2 ML (IM) VIAL IM ONE (12:00)
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
[2016-08-28] MEDS: ENOXAPARIN SODIUM 40 MG/0.4 ML SYRINGE SQ SCH (14:00)
[2016-08-28] MEDS ORDERED: ceFAZolin INJ 1,000 MG VIAL ONE (14:20)
[2016-08-28] MEDS ORDERED: metroNIDAZOLE 500 MG INJ 100 ML IV ONE (14:20)
[2016-08-28] MEDS ORDERED: fentaNYL CITRATE 250 MCG/5 ML AMP ONE (17:17)
[2016-08-28] MEDS ORDERED: MIDAZOLAM HCL 2 MG/2 ML VIAL ONE (17:17)
--- NOTE | 2016-08-28 17:33 | HHI.PR ---
cc: Zechariah Faulkner MD Immediate Post Op Note Procedure Date: Aug 28, 2016 Pre Op Diagnosis: Wound dehiscence colostomy site Post Op Diagnosis: Same Surgeon: Zechariah Faulkner Human Resources Psychologist(s): ANNAMARIA Rasheed Procedure: Revision colostomy with end colostomy and Hammer's pouch Repair parastomal hernia with [place] Bio-A 9x15 cm mesh Findings: Fascial disruption previous sutures Complications: None Specimen(s) removed: None Estimated blood loss: 50 ml Anesthesia: General Drains: None IVF (1100 ml) Patient to: PACU Patient Condition: Fair Date/Time of Procedure: SEE SURGICAL CARE RECORD Zechariah Faulkner MD Aug 28, 2016 17:33
[2016-08-28 21:02] LABS: BICARBONATE 25.2 MEQ/L (21.0-32.0); POTASSIUM 4.1 MEQ/L (3.5-5.1)
--- NOTE | 2016-08-28 22:12 | MP ---
cc: ANGELIQUE FAULKNER DATE OF SURGERY 08/28/16 PREOPERATIVE DIAGNOSIS Fascial disruption colostomy with parastomal hernia. POSTOPERATIVE DIAGNOSIS Fascial disruption colostomy with parastomal hernia. ANESTHESIA General endotracheal SURGEON Radha Faulkner MD STUDIO DATA ANALYST ANNAMARIA Horne PROCEDURE 1. Revision of colostomy with creation of end colostomy and Desirae's pouch. 2. Repair of parastomal hernia with overlay of [place] Bio A 9 x 15 cm mesh. COMPLICATIONS None. DRAINS None SPECIMEN None. PROCEDURE IN DETAIL The patient was taken to the operating room and placed on the operating table in the supine position. After and adequate level of general endotracheal anesthesia was achieved, the abdomen was prepped and draped in the usual fashion. Time-out was taken confirming the correct patient, site and procedure to be performed. The old incision site was opened further and omentum which was present in the wound was dissected free from the surrounding structures and placed back into the peritoneal cavity. The colostomy was dissected off of the skin and mobilized with both electro dissection and sharp dissection. The double barrel colostomy was and dissection carried out on the distal segment of bowel. The bowel was stapled off with a RITIKA 75 stapler. The staple line was seen to be intact with a single 3-0 silk suture placed to further buttress the staple line at a small oozing points. With hemostasis assured, the distal segment of bowel was allowed to drop back into the abdominal cavity. The proximal colon was freed up completely and, at this point, the fascia was closed in a longitudinal fashion with interrupted #1 Prolene sutures. A 9 x 15 cm piece of [place] Bio A mesh was utilized and the notch made slightly bigger to allow for egress of the colostomy. The Bio A was fixed at multiple points with 0 Prolene suture. The colostomy was matured to the skin with 3-0 Vicryl suture. The wound was closed partially medially with 3-0 Vicryl suture. [place] were placed laterally. A 57 millimeter colostomy appliance was applied to the skin. The patient was then extubated and taken back to the recovery room in stable condition. Sponge, needle and instrument counts were reported be correct. MD WALT Linares/ /5:38 PM /10:00 PM
[2016-08-29] VITALS: BP 122/80; PULSE 70; RESP 18; TEMP 96.6; O2SAT 97
[2016-08-29] MEDS: METOPROLOL TARTRATE 50 MG TAB PO SCH ×3 (01:00→17:48)
[2016-08-29] MEDS: MEROPENEM INJ 2,000 MG in SODIUM CHLORIDE 0.9% INJ 100 ML IV SCH ×3 (01:07→17:48)
[2016-08-29 04:00] VITALS: BP 109/61; PULSE 58; RESP 18; TEMP 98; O2SAT 98
[2016-08-29] MEDS: FREE WATER G-TUBE SCH ×3 (06:00→22:00)
[2016-08-29] MEDS: POTASSIUM PHOSPHATE/SODIUM PHOSPHATE 250 MG TAB PO SCH ×4 (07:07→17:48)
[2016-08-29] MEDS: methylPREDNISolone SOD SUCC 40 MG/1 ML VIAL IV PUSH SCH ×2 (07:07→21:00)
[2016-08-29 07:57] VITALS: BP 120/67; PULSE 60; RESP 16; TEMP 95.3; O2SAT 98
[2016-08-29] MEDS: BETAMETHASONE DIPROPIONATE 0.05% CREAM 15 GM TOPICAL SCH ×2 (08:45→21:00)
[2016-08-29] MEDS: PETROLATUM 49%/ZINC OXIDE 15% 4 OUNCE TUBE TOPICAL SCH ×2 (08:46→10:37)
[2016-08-29] MEDS: INSULIN ASPART SUPPLEMENTAL SCALE SQ SCH ×3 (09:00→21:00)
[2016-08-29] MEDS: SODIUM CHLORIDE 0.9% FLUSH 5 ML FLUSH IV FLUSH SCH ×2 (09:00→21:00)
[2016-08-29] MEDS: POTASSIUM CL 40 MEQ/30 ML LIQ UDC GT SCH (09:00)
[2016-08-29] MEDS: hydrOXYzine PAMOATE 25 MG CAP PO SCH ×3 (10:21→17:48)
[2016-08-29] MEDS: VANCOMYCIN 500 MG VIAL (FOR ORAL USE ONLY) PO SCH ×3 (10:21→21:15)
[2016-08-29] MEDS: LISINOPRIL 10 MG TAB PO SCH ×2 (10:22→21:00)
[2016-08-29] MEDS: MULTIVITAMIN TAB PO SCH (10:23)
[2016-08-29] MEDS: PANTOPRAZOLE SODIUM 40 MG VIAL IV PUSH SCH (10:23)
[2016-08-29] MEDS: CALAMINE/PRAMOXINE LOTION 180 ML BTL TOPICAL SCH ×2 (10:37→21:00)
[2016-08-29] MEDS: BACITRACIN TOP OINT 15 GM TUBE TOP SCH ×2 (10:38→21:00)
[2016-08-29 12:00] VITALS: BP 128/78; PULSE 71; RESP 16; TEMP 95.8; O2SAT 95
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
[2016-08-29] MEDS: ENOXAPARIN SODIUM 40 MG/0.4 ML SYRINGE SQ SCH (14:00)
[2016-08-29] MEDS: ACETAMINOPHEN 325 MG TAB PO PRN (15:50)
[2016-08-29 16:00] VITALS: BP 141/77; PULSE 77; RESP 16; TEMP 95.6; O2SAT 95
--- NOTE | 2016-08-29 18:56 | HHI.PR ---
Subjective Subjective Notes Resting quietly in bed Objective Vitals/I&O Vital Signs Date Time Temp Pulse Resp B/P Pulse Ox O2 Delivery O2 Flow Rate FiO2 08/29/16 16:00 95.6 77 16 141/77 95 08/28/16 21:15 Nasal Cannula 2 08/26/16 08:02 21 Labs Laboratory Tests Test 08/28/16 08/29/16 20:15 06:42 Sodium Level 137 Potassium Level 4.1 Chloride Level 104 Carbon Dioxide Level 25.2 Anion Gap 8 Blood Urea Nitrogen 28 Creatinine 0.77 0.54 Estimat Glomerular Filtration 77 116 Rate Random Glucose 117 Calcium Level 8.4 Lungs: Clear Abdomen: Non-distended, Non-tender Narrative Exam Colostomy viable; no stool yet Wound with drainage around [place] Minimal erythema near colostomy appliance Plan: Tube feedings restarted; IVF reduced. Restart PO diet when colostomy functions. A/P Problem List: (1) Status post colostomy (2) Infected decubitus ulcer (3) History of CVA (cerebrovascular accident) (4) COPD (chronic obstructive pulmonary disease) (5) Neurocognitive disorder (6) Essential hypertension Assessment and Plan 60-year-old female with PMH CVA, sepsis with infected decubitus ulcer, healing now: Discussed with nurse and wound care nurse (Adrienne); sutures to be removed . Problem Qualifiers (1) Infected decubitus ulcer: Qualified Code: L89.95 - Infected decubitus ulcer, unstageable Zechariah Faulkner MD Aug 29, 2016 18:55
[2016-08-29 20:02] VITALS: BP 110/74; PULSE 69; RESP 18; TEMP 98; O2SAT 98
--- NOTE | 2016-08-29 20:52 | HHI.IDPN ---
Subjective Subjective Remarks on NC O2 afebrile Incoherent speech sp colostomy revision on 08/28 2 fascial disruption with parastomal hernia tendency to hypothermia noted Antibiotics PO vanco Meropenem Past Medical History Reviewed Allergies: Coded Allergies: MRI PRECAUTION (Verified Adverse Reaction, Severe, ANEURYSM CLIP PER DR. [id number]-09/08/09, 05/31/16) *MDRO Multi-Drug Resistant Organism (Verified Adverse Reaction, Unknown, MRSA, 08/18/16) MRSA (sputum) - 10/2004 & 11/2004 ESBL Klebsiella Pneumoniae (bronc wash-08/14/16) Objective . Vital Signs Date Time Temp Pulse Resp B/P Pulse Ox O2 Delivery O2 Flow Rate FiO2 08/29/16 16:00 95.6 77 16 141/77 95 08/29/16 12:00 95.8 71 16 128/78 95 08/29/16 07:57 95.3 60 16 120/67 98 08/29/16 04:00 98.0 58 18 109/61 98 08/29/16 00:00 96.6 70 18 122/80 97 08/28/16 21:30 95.4 63 18 125/63 96 08/28/16 21:15 98.3 59 18 117/72 97 Nasal Cannula 2 08/28/16 21:00 55 18 122/74 97 Nasal Cannula 2 08/28/16 08/28/16 08/29/16 15:00 23:00 07:00 Intake Total 1400 ml Output Total 775 ml 950 ml Balance 625 ml -950 ml IV Total 300 ml Other 1100 ml Output Urine Total 725 ml 950 ml Estimated Blood Loss 50 ml Bladder Scan Volume Amount 15 ml . Laboratory Tests Test 08/28/16 08/29/16 20:15 06:42 Sodium Level 137 MEQ/L Potassium Level 4.1 MEQ/L Chloride Level 104 MEQ/L Carbon Dioxide Level 25.2 MEQ/L Anion Gap 8 MEQ/L Blood Urea Nitrogen 28 MG/DL Creatinine 0.77 MG/DL 0.54 MG/DL Estimat Glomerular Filtration 77 ML/MIN 116 ML/MIN Rate Random Glucose 117 MG/DL Calcium Level 8.4 MG/DL Imaging Last Impressions Chest X-Ray 08/18/16 0000 Signed Impressions: Service Date/Time: Thursday, August 18, 2016 05:18 - CONCLUSION: Interval increase in opacity in both lung bases as well as apparent bilateral effusions. The findings could indicate congestive heart failure. Zechariah Sutton MD Abdomen/Pelvis CT 08/14/16 0000 Signed Impressions: Service Date/Time: July 15:44 - CONCLUSION: 1. There is no evidence for an intraabdominal process as the cause of sepsis. 2. There is mild prominence to both collecting systems, nonspecific. Vinay Avalos MD FACR Lower Extremity Ultrasound 06/01/16 0000 Signed Impressions: Service Date/Time: Wednesday, June 01, 2016 02:44 - CONCLUSION: No evidence of lower extremity DVT on the right or left. Rony Espinoza MD Head CT 05/31/16 0000 Signed Impressions: Service Date/Time: Tuesday, May 31, 2016 11:51 - CONCLUSION: 1. 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 2. Negative for an acute process. Vinay Avalos MD FACR Physical Exam CONSTITUTIONAL/GENERAL: Awake, and responding, comfortable SKIN: No jaundice, cool and dry. No rash. Skin dry with excoriations EYES: Pupils equal and round and reactive. No scleral icterus. No injection or drainage. ENT: .Oral mucosae moist without visible erythema, exudates, masses, or lesions. CARDIOVASCULAR: Regular rate and rhythm without murmurs, gallops, or rubs. No JVD. Peripheral pulses symmetric. RESPIRATORY/CHEST: Decreased BS at bases GASTROINTESTINAL: Abdomen soft, moderately distended, not tender. Colostomy with small amount of dark bloos Incision with serosang d/c GENITOURINARY: Without palpable bladder distension. [facility] catheter in place. MUSCULOSKELETAL: Extremities without clubbing, cyanosis, or edema. . No mottling or clubbing. LYMPHATICS: No palpable cervical or supraclavicular adenopathy. NEUROLOGICAL: awake alert, responding speech incoherent Assessment & Plan Remarks Proteus sepsis, sp 2 wks of meropenem PNA, growing Proteus, ESBL Kleb and MSSA UTI E.coli, PSAE C.diff hypervirulent 027 strain Acute VDRF resolved ARF resolved Infected decubs, S/P diverting colostomy, sp revision of colostomy PLAN: dc Meropenem Cont oral Vanco x 2 wks chk TSH repeat BC Lanette Adames MD Aug 29, 2016 20:52
[2016-08-30 00:03] VITALS: BP 148/75; PULSE 71; RESP 20; TEMP 97.5; O2SAT 94
[2016-08-30] MEDS: METOPROLOL TARTRATE 50 MG TAB PO SCH ×4 (01:00→23:53)
[2016-08-30] MEDS: ACETAMINOPHEN 325 MG TAB PO PRN (01:18)
[2016-08-30] MEDS: INSULIN ASPART SUPPLEMENTAL SCALE SQ SCH ×4 (03:00→23:00)
[2016-08-30] MEDS: VANCOMYCIN 500 MG VIAL (FOR ORAL USE ONLY) PO SCH ×4 (03:15→21:21)
[2016-08-30 04:29] VITALS: BP 156/80; PULSE 82; RESP 20; TEMP 97; O2SAT 98
[2016-08-30] MEDS: LACTATED RINGER'S 1000 ML IV SCH (05:15)
[2016-08-30] MEDS: POTASSIUM PHOSPHATE/SODIUM PHOSPHATE 250 MG TAB PO SCH ×5 (06:00→23:53)
[2016-08-30] MEDS: FREE WATER G-TUBE SCH ×3 (06:00→21:23)
[2016-08-30 08:00] VITALS: BP 153/84; PULSE 77; RESP 18; TEMP 97.1; O2SAT 98
[2016-08-30] MEDS: CALAMINE/PRAMOXINE LOTION 180 ML BTL TOPICAL SCH ×2 (09:00→21:23)
[2016-08-30] MEDS: PANTOPRAZOLE SODIUM 40 MG VIAL IV PUSH SCH (09:23)
[2016-08-30] MEDS: methylPREDNISolone SOD SUCC 40 MG/1 ML VIAL IV PUSH SCH ×2 (09:23→21:21)
[2016-08-30] MEDS: MULTIVITAMIN TAB PO SCH (09:24)
[2016-08-30] MEDS: POTASSIUM CL 40 MEQ/30 ML LIQ UDC GT SCH (09:24)
[2016-08-30] MEDS: hydrOXYzine PAMOATE 25 MG CAP PO SCH ×3 (09:24→17:23)
[2016-08-30] MEDS: LISINOPRIL 10 MG TAB PO SCH ×2 (09:25→21:21)
[2016-08-30] MEDS: BACITRACIN TOP OINT 15 GM TUBE TOP SCH ×2 (09:58→21:22)
[2016-08-30] MEDS: PETROLATUM 49%/ZINC OXIDE 15% 4 OUNCE TUBE TOPICAL SCH (09:58)
[2016-08-30] MEDS: BETAMETHASONE DIPROPIONATE 0.05% CREAM 15 GM TOPICAL SCH ×2 (09:59→21:23)
--- NOTE | 2016-08-30 11:01 | HHI.PR ---
Subjective Subjective Notes pretty quiet, wakes, makes eye contact, denies complaints. Objective Vitals/I&O Vital Signs Date Time Temp Pulse Resp B/P Pulse Ox O2 Delivery O2 Flow Rate FiO2 08/30/16 08:00 97.1 77 18 153/84 98 08/28/16 21:15 Nasal Cannula 2 08/26/16 08:02 21 Labs Date/Time Procedure Status Source Growth 08/30/16 07:10 Aerobic Blood Culture Received Blood Peripheral Pending 08/30/16 07:10 Anaerobic Blood Culture Received Blood Peripheral Pending Abdomen: Non-distended, Non-tender, Other (m[place] removed, seroanguinous drainage, about 10 ml expressed, no purulence. Dry dressing applied. Colostomy pink, minimal bloody/colon sweat drainage.) A/P Problem List: (1) Status post colostomy (2) Infected decubitus ulcer (3) History of CVA (cerebrovascular accident) (4) COPD (chronic obstructive pulmonary disease) (5) Neurocognitive disorder (6) Essential hypertension Assessment and Plan postop colostomy revision, repair parastomal hernia. tolerating TF. dry dressing changes as needed, d/w Rn at bedside. Problem Qualifiers (1) Infected decubitus ulcer: Qualified Code: L89.95 - Infected decubitus ulcer, unstageable Reed Delgadillo MD Aug 30, 2016 11:01
[2016-08-30 12:00] VITALS: BP 138/76; PULSE 76; RESP 18; TEMP 97.1; O2SAT 99
[2016-08-30] MEDS: ENOXAPARIN SODIUM 40 MG/0.4 ML SYRINGE SQ SCH (13:56)
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
[2016-08-30 16:00] VITALS: BP 142/76; PULSE 76; RESP 18; TEMP 96.7; O2SAT 100
[2016-08-30 19:55] VITALS: BP 182/88; PULSE 80; RESP 16; TEMP 98.1; O2SAT 96
[2016-08-30] MEDS: SODIUM CHLORIDE 0.9% FLUSH 5 ML FLUSH IV FLUSH SCH (21:22)
[2016-08-30] MEDS: cloNIDine HCL 0.1 MG TAB PO PRN (23:53)
[2016-08-31] VITALS (7 sets, daily range): BP systolic 139–197; BP diastolic 83–120; PULSE 64–97; RESP 16–20; TEMP 96.9–99.3; O2SAT 93–96
[2016-08-31] MEDS: VANCOMYCIN 500 MG VIAL (FOR ORAL USE ONLY) PO SCH ×4 (03:15→22:13)
[2016-08-31] MEDS: LACTATED RINGER'S 1000 ML IV SCH (05:15)
[2016-08-31] MEDS: POTASSIUM PHOSPHATE/SODIUM PHOSPHATE 250 MG TAB PO SCH ×3 (05:30→17:42)
[2016-08-31] MEDS: FREE WATER G-TUBE SCH ×3 (05:30→22:00)
[2016-08-31] MEDS: cloNIDine HCL 0.1 MG TAB PO PRN (05:34)
[2016-08-31] MEDS: INSULIN ASPART SUPPLEMENTAL SCALE SQ SCH ×4 (05:49→21:00)
[2016-08-31 06:52] LABS: MEAN CORPUSCULAR HEMOGLOBIN 28.3 PG (27.0-34.0); MEAN CORPUSCULAR HGB CONC 32.9 % (32.0-36.0); PLATELET COUNT 249 TH/MM3 (150-450); RED BLOOD COUNT 3.02 MIL/MM3 (4.00-5.30); RED CELL DISTRIBUTION WIDTH 17.4 % (11.6-17.2); REVIEW FLAG FINAL; WHITE BLOOD COUNT 6.4 TH/MM3 (4.0-11.0)
[2016-08-31 07:09] LABS: BICARBONATE 26.1 MEQ/L (21.0-32.0); POTASSIUM 4.2 MEQ/L (3.5-5.1)
[2016-08-31] MEDS: methylPREDNISolone SOD SUCC 40 MG/1 ML VIAL IV PUSH SCH ×2 (09:31→22:11)
[2016-08-31] MEDS: PANTOPRAZOLE SODIUM 40 MG VIAL IV PUSH SCH (09:31)
[2016-08-31] MEDS: POTASSIUM CL 40 MEQ/30 ML LIQ UDC GT SCH (09:31)
[2016-08-31] MEDS: LISINOPRIL 10 MG TAB PO SCH ×2 (09:31→22:12)
[2016-08-31] MEDS: METOPROLOL TARTRATE 50 MG TAB PO SCH ×2 (09:31→17:42)
[2016-08-31] MEDS: hydrOXYzine PAMOATE 25 MG CAP PO SCH ×3 (09:31→22:12)
[2016-08-31] MEDS: MULTIVITAMIN TAB PO SCH (09:31)
[2016-08-31] MEDS: SODIUM CHLORIDE 0.9% FLUSH 5 ML FLUSH IV FLUSH SCH ×2 (09:32→21:00)
[2016-08-31] MEDS: BACITRACIN TOP OINT 15 GM TUBE TOP SCH ×2 (09:40→22:13)
[2016-08-31] MEDS: CALAMINE/PRAMOXINE LOTION 180 ML BTL TOPICAL SCH ×2 (09:40→22:13)
[2016-08-31] MEDS: BETAMETHASONE DIPROPIONATE 0.05% CREAM 15 GM TOPICAL SCH ×2 (09:41→22:13)
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
[2016-08-31] MEDS: ENOXAPARIN SODIUM 40 MG/0.4 ML SYRINGE SQ SCH (14:32)
--- NOTE | 2016-08-31 17:01 | HHI.PR ---
Subjective Subjective Notes Resting quietly; indicates no pain at surgical site. Objective Vitals/I&O Vital Signs Date Time Temp Pulse Resp B/P Pulse Ox O2 Delivery O2 Flow Rate FiO2 08/31/16 16:00 97.9 85 18 160/97 93 08/28/16 21:15 Nasal Cannula 2 Labs Laboratory Tests Test 08/31/16 05:40 White Blood Count 6.4 Red Blood Count 3.02 Hemoglobin 8.5 Hematocrit 26.0 Mean Corpuscular Volume 86.0 Mean Corpuscular Hemoglobin 28.3 Mean Corpuscular Hemoglobin 32.9 Concent Red Cell Distribution Width 17.4 Platelet Count 249 Mean Platelet Volume 8.4 Sodium Level 138 Potassium Level 4.2 Chloride Level 104 Carbon Dioxide Level 26.1 Anion Gap 8 Blood Urea Nitrogen 18 Creatinine 0.35 Estimat Glomerular Filtration 191 Rate Random Glucose 205 Calcium Level 7.8 Date/Time Procedure Status Source Growth 08/30/16 07:10 Aerobic Blood Culture - Preliminary Resulted Blood Peripheral NO GROWTH IN 1 DAY 08/30/16 07:10 Anaerobic Blood Culture - Preliminary Resulted Blood Peripheral NO GROWTH IN 1 DAY Lungs: Clear Abdomen: Non-tender Narrative Exam Colostomy viable; some stool in bag now Wound with drainage around [place], less than yesterday erythema near colostomy appliance resolved Plan: Tube feedings restarted; IVF stopped. Resume PO diet. A/P Problem List: (1) Status post colostomy (2) Infected decubitus ulcer (3) History of CVA (cerebrovascular accident) (4) COPD (chronic obstructive pulmonary disease) (5) Neurocognitive disorder (6) Essential hypertension Assessment and Plan 60-year-old female with PMH CVA, sepsis with infected decubitus ulcer, healing now: Discussed with nurse and wound care nurse (Adrienne); sutures to be removed . Problem Qualifiers (1) Infected decubitus ulcer: Qualified Code: L89.95 - Infected decubitus ulcer, unstageable Zechariah Faulkner MD Aug 31, 2016 17:01
[2016-08-31] MEDS: EUCERIN CREAM 120 GM JAR TOPICAL PRN (22:30)
[2016-08-31] MEDS: PETROLATUM 49%/ZINC OXIDE 15% 4 OUNCE TUBE TOPICAL SCH (22:31)
[2016-09-01] MEDS: POTASSIUM PHOSPHATE/SODIUM PHOSPHATE 250 MG TAB PO SCH ×4 (00:18→18:00)
[2016-09-01] MEDS: cloNIDine HCL 0.1 MG TAB PO PRN ×2 (00:18→17:15)
[2016-09-01] MEDS: METOPROLOL TARTRATE 50 MG TAB PO SCH ×3 (00:18→15:34)
[2016-09-01] MEDS: INSULIN ASPART SUPPLEMENTAL SCALE SQ SCH ×4 (03:00→21:25)
[2016-09-01] MEDS: VANCOMYCIN 500 MG VIAL (FOR ORAL USE ONLY) PO SCH ×4 (03:15→21:04)
[2016-09-01 04:00] VITALS: BP 156/89; PULSE 70; RESP 18; TEMP 97.2; O2SAT 98
[2016-09-01] MEDS: LACTATED RINGER'S 1000 ML IV SCH ×2 (05:15→22:21)
[2016-09-01] MEDS: FREE WATER G-TUBE SCH ×3 (06:00→21:04)
[2016-09-01 08:00] VITALS: BP 158/82; PULSE 82; RESP 19; TEMP 96.7; O2SAT 100
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
[2016-09-01] MEDS: POTASSIUM CL 40 MEQ/30 ML LIQ UDC GT SCH (09:27)
[2016-09-01] MEDS: PANTOPRAZOLE SODIUM 40 MG VIAL IV PUSH SCH (09:27)
[2016-09-01] MEDS: methylPREDNISolone SOD SUCC 40 MG/1 ML VIAL IV PUSH SCH ×2 (09:27→21:03)
[2016-09-01] MEDS: MULTIVITAMIN TAB PO SCH (09:28)
[2016-09-01] MEDS: hydrOXYzine PAMOATE 25 MG CAP PO SCH ×2 (09:28→21:03)
[2016-09-01] MEDS: LISINOPRIL 10 MG TAB PO SCH ×2 (09:28→21:03)
[2016-09-01] MEDS: BETAMETHASONE DIPROPIONATE 0.05% CREAM 15 GM TOPICAL SCH ×2 (09:29→21:05)
[2016-09-01] MEDS: BACITRACIN TOP OINT 15 GM TUBE TOP SCH ×2 (09:30→21:04)
[2016-09-01] MEDS: CALAMINE/PRAMOXINE LOTION 180 ML BTL TOPICAL SCH ×2 (09:31→21:05)
[2016-09-01] MEDS: PETROLATUM 49%/ZINC OXIDE 15% 4 OUNCE TUBE TOPICAL SCH (09:31)
[2016-09-01] MEDS: SODIUM CHLORIDE 0.9% FLUSH 5 ML FLUSH IV FLUSH SCH ×2 (09:32→21:03)
[2016-09-01] MEDS: hydrALAZINE HCL 25 MG TAB PO SCH ×2 (11:09→18:09)
[2016-09-01 12:00] VITALS: BP 180/86; PULSE 76; RESP 16; TEMP 96.5; O2SAT 99
[2016-09-01] MEDS: ENALAPRILAT 1.25 MG/ML VIAL IV PRN (12:16)
[2016-09-01 14:00] VITALS: BP 162/95; PULSE 68; RESP 17; TEMP 95.7; O2SAT 100
[2016-09-01] MEDS: ENOXAPARIN SODIUM 40 MG/0.4 ML SYRINGE SQ SCH (14:31)
[2016-09-01 18:09] VITALS: BP 156/86
[2016-09-01 20:00] VITALS: BP 158/92; PULSE 64; RESP 20; TEMP 98.4; O2SAT 92
[2016-09-01] MEDS: EUCERIN CREAM 120 GM JAR TOPICAL PRN (21:05)
[2016-09-01 22:06] LABS: BACTERIA, URINE OCC /hpf; BLOOD, URINE SMALL (NEG); GLUCOSE,URINE TRACE mg/dL (NEG); KETONE, URINE NEG (NEG); MUCUS URINE FEW /lpf (OCC); NITRITE,URINE NEG (NEG); PH, URINE 6.5 (5.0-8.5); SQUAMOUS EPITHELIAL CELL URINE <1 /hpf (0-5); URINE COLOR YELLOW (YELLW/STRAW)
[2016-09-01 22:08] LABS: COMMENT (UR) CATH-CULTURE IND; CULTURE IF INDICATED CATH CULTURE IND
[2016-09-02] VITALS (8 sets, daily range): BP systolic 135–193; BP diastolic 69–106; PULSE 53–65; RESP 18–20; TEMP 96.4–97.2; O2SAT 92–98
[2016-09-02] MEDS: METOPROLOL TARTRATE 50 MG TAB PO SCH ×4 (00:30→17:44)
[2016-09-02] MEDS: cloNIDine HCL 0.1 MG TAB PO PRN ×3 (00:30→14:34)
[2016-09-02] MEDS: POTASSIUM PHOSPHATE/SODIUM PHOSPHATE 250 MG TAB PO SCH ×4 (00:30→17:44)
[2016-09-02] MEDS: VANCOMYCIN 500 MG VIAL (FOR ORAL USE ONLY) PO SCH ×5 (02:05→20:55)
[2016-09-02] MEDS: hydrALAZINE HCL 25 MG TAB PO SCH ×3 (02:05→17:44)
[2016-09-02] MEDS: INSULIN ASPART SUPPLEMENTAL SCALE SQ SCH ×4 (02:10→21:00)
[2016-09-02] MEDS: FREE WATER G-TUBE SCH ×3 (05:33→20:55)
[2016-09-02] MEDS: SODIUM CHLORIDE 0.9% FLUSH 5 ML FLUSH IV FLUSH SCH ×2 (09:00→21:00)
[2016-09-02] MEDS: PANTOPRAZOLE SODIUM 40 MG VIAL IV PUSH SCH ×2 (09:00→10:12)
[2016-09-02] MEDS: POTASSIUM CL 40 MEQ/30 ML LIQ UDC GT SCH ×2 (09:00→10:13)
[2016-09-02] MEDS: hydrOXYzine PAMOATE 25 MG CAP PO SCH ×3 (09:00→20:55)
[2016-09-02] MEDS: MULTIVITAMIN TAB PO SCH ×2 (09:00→10:14)
[2016-09-02] MEDS: LISINOPRIL 10 MG TAB PO SCH ×3 (09:00→20:55)
[2016-09-02] MEDS: methylPREDNISolone SOD SUCC 40 MG/1 ML VIAL IV PUSH SCH (10:13)
[2016-09-02] MEDS: BETAMETHASONE DIPROPIONATE 0.05% CREAM 15 GM TOPICAL SCH ×2 (10:15→20:58)
[2016-09-02] MEDS: CALAMINE/PRAMOXINE LOTION 180 ML BTL TOPICAL SCH ×2 (10:15→20:57)
[2016-09-02] MEDS: BACITRACIN TOP OINT 15 GM TUBE TOP SCH ×2 (10:15→20:58)
[2016-09-02] MEDS: PETROLATUM 49%/ZINC OXIDE 15% 4 OUNCE TUBE TOPICAL SCH (10:16)
[2016-09-02] MEDS: ENALAPRILAT 1.25 MG/ML VIAL IV PRN (11:58)
[2016-09-02] MEDS: ENOXAPARIN SODIUM 40 MG/0.4 ML SYRINGE SQ SCH (14:35)
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
--- NOTE | 2016-09-02 21:46 | HHI.IDPN ---
Subjective Subjective Remarks delayed entry no fever oriented x 2 Antibiotics PO vanco Past Medical History Reviewed Allergies: Coded Allergies: MRI PRECAUTION (Verified Adverse Reaction, Severe, ANEURYSM CLIP PER DR. [id number]-09/08/09, 05/31/16) *MDRO Multi-Drug Resistant Organism (Verified Adverse Reaction, Unknown, MRSA, 08/18/16) MRSA (sputum) - 10/2004 & 11/2004 ESBL Klebsiella Pneumoniae (bronc wash-08/14/16) Objective . Vital Signs Date Time Temp Pulse Resp B/P Pulse Ox O2 Delivery O2 Flow Rate FiO2 09/02/16 16:00 96.4 60 18 190/106 98 09/02/16 12:00 97.2 62 18 184/99 94 09/02/16 10:37 Room Air 09/02/16 08:00 97.1 61 18 193/91 94 09/02/16 06:34 148/84 09/02/16 04:00 97.2 55 20 168/86 93 09/02/16 04:00 Room Air 09/02/16 02:05 155/77 09/02/16 00:00 Room Air 09/02/16 00:00 97.0 65 20 192/96 92 09/01/16 09/01/16 09/02/16 15:00 23:00 07:00 Intake Total 620 ml 672 ml Output Total 1225 ml 1200 ml Balance -605 ml -528 ml Intake Oral 50 ml Tube Feeding 370 ml 472 ml Other 200 ml 200 ml Output Urine Total 650 ml 1200 ml Stool Total 575 ml . Microbiology Date/Time Procedure Status Source Growth 09/01/16 21:30 Urine Culture - Preliminary Resulted Urine Catheterized Urine IMMATURE GROWTH - REINCUBATE Imaging Last Impressions Chest X-Ray 08/18/16 0000 Signed Impressions: Service Date/Time: Thursday, August 18, 2016 05:18 - CONCLUSION: Interval increase in opacity in both lung bases as well as apparent bilateral effusions. The findings could indicate congestive heart failure. Zechariah Sutton MD Abdomen/Pelvis CT 08/14/16 0000 Signed Impressions: Service Date/Time: July 15:44 - CONCLUSION: 1. There is no evidence for an intraabdominal process as the cause of sepsis. 2. There is mild prominence to both collecting systems, nonspecific. Vinay Avalos MD FACR Lower Extremity Ultrasound 06/01/16 0000 Signed Impressions: Service Date/Time: Wednesday, June 01, 2016 02:44 - CONCLUSION: No evidence of lower extremity DVT on the right or left. Rony Espinoza MD Head CT 05/31/16 0000 Signed Impressions: Service Date/Time: Tuesday, May 31, 2016 11:51 - CONCLUSION: 1. 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 2. Negative for an acute process. Vinay Avalos MD FACR Physical Exam CONSTITUTIONAL/GENERAL: Awake, and responding, comfortable SKIN: No jaundice, cool and dry. No rash. Skin dry with excoriations EYES: Pupils equal and round and reactive. No scleral icterus. No injection or drainage. ENT: .Oral mucosae moist without visible erythema, exudates, masses, or lesions. CARDIOVASCULAR: Regular rate and rhythm without murmurs, gallops, or rubs. No JVD. Peripheral pulses symmetric. RESPIRATORY/CHEST: Decreased BS at bases GASTROINTESTINAL: Abdomen soft, moderately distended, not tender. Colostomy with small amount of stool. Incision dry and clean GENITOURINARY: Without palpable bladder distension. [facility] catheter in place. MUSCULOSKELETAL: Extremities without clubbing, cyanosis, or edema. . No mottling or clubbing. LYMPHATICS: No palpable cervical or supraclavicular adenopathy. NEUROLOGICAL: awake alert, responding, makes eye contact speech clear Assessment & Plan Remarks Proteus sepsis, sp 2 wks of meropenem PNA, growing Proteus, ESBL Kleb and MSSA UTI E.coli, PSAE C.diff hypervirulent 027 strain - clinically improving Acute VDRF resolved ARF resolved Infected decubs, S/P diverting colostomy, sp revision of colostomy Hypothermia - resolved UTI vs bacteriria PLAN: Complete oral Vanco x 2 wks fu repeat BC avoid unnecesasry abx fu urine clx dw RN Lanette Adames MD Sep 02, 2016 21:46
[2016-09-03] VITALS: BP 138/76; PULSE 57; RESP 20; TEMP 97.2; O2SAT 97
[2016-09-03] MEDS: POTASSIUM PHOSPHATE/SODIUM PHOSPHATE 250 MG TAB PO SCH ×5 (00:41→16:55)
[2016-09-03] MEDS: METOPROLOL TARTRATE 50 MG TAB PO SCH ×3 (00:41→16:56)
[2016-09-03] MEDS: hydrALAZINE HCL 25 MG TAB PO SCH ×3 (01:47→16:56)
[2016-09-03 04:00] VITALS: BP 136/78; PULSE 62; RESP 18; TEMP 97.4; O2SAT 97
[2016-09-03] MEDS: INSULIN ASPART SUPPLEMENTAL SCALE SQ SCH ×3 (04:45→15:00)
[2016-09-03] MEDS: LACTATED RINGER'S 1000 ML IV SCH (05:15)
[2016-09-03] MEDS: VANCOMYCIN 500 MG VIAL (FOR ORAL USE ONLY) PO SCH ×4 (05:23→22:38)
[2016-09-03] MEDS: FREE WATER G-TUBE SCH ×3 (05:53→22:00)
[2016-09-03 08:00] VITALS: BP 152/79; PULSE 61; RESP 22; TEMP 97.7; O2SAT 95
[2016-09-03] MEDS ORDERED: methylPREDNISolone SOD SUCC 40 MG/1 ML VIAL IV PUSH SCH (09:00)
[2016-09-03] MEDS: SODIUM CHLORIDE 0.9% FLUSH 5 ML FLUSH IV FLUSH SCH ×2 (09:22→22:39)
[2016-09-03] MEDS: PANTOPRAZOLE SODIUM 40 MG VIAL IV PUSH SCH (09:25)
[2016-09-03] MEDS: MULTIVITAMIN TAB PO SCH (09:28)
[2016-09-03] MEDS: POTASSIUM CL 40 MEQ/30 ML LIQ UDC GT SCH (09:28)
[2016-09-03] MEDS: LISINOPRIL 10 MG TAB PO SCH ×2 (09:29→22:39)
[2016-09-03] MEDS: hydrOXYzine PAMOATE 25 MG CAP PO SCH ×2 (09:29→22:39)
[2016-09-03] MEDS: BACITRACIN TOP OINT 15 GM TUBE TOP SCH ×2 (09:33→22:41)
[2016-09-03] MEDS: CALAMINE/PRAMOXINE LOTION 180 ML BTL TOPICAL SCH ×2 (09:33→22:41)
[2016-09-03] MEDS: PETROLATUM 49%/ZINC OXIDE 15% 4 OUNCE TUBE TOPICAL SCH (09:34)
[2016-09-03] MEDS: BETAMETHASONE DIPROPIONATE 0.05% CREAM 15 GM TOPICAL SCH ×2 (09:34→22:42)
[2016-09-03] MEDS: ENOXAPARIN SODIUM 40 MG/0.4 ML SYRINGE SQ SCH (13:01)
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
[2016-09-03 16:00] VITALS: BP 163/84; PULSE 77; RESP 22; TEMP 99.8; O2SAT 74
[2016-09-03 20:00] VITALS: BP 184/83; PULSE 88; RESP 22; TEMP 98.9; O2SAT 97
[2016-09-04] VITALS (8 sets, daily range): BP systolic 127–189; BP diastolic 75–90; PULSE 61–80; RESP 16–22; TEMP 97–98.7; O2SAT 95–99
[2016-09-04] MEDS: METOPROLOL TARTRATE 50 MG TAB PO SCH ×3 (01:35→17:50)
[2016-09-04] MEDS: POTASSIUM PHOSPHATE/SODIUM PHOSPHATE 250 MG TAB PO SCH ×5 (01:35→23:17)
[2016-09-04] MEDS: hydrALAZINE HCL 25 MG TAB PO SCH ×3 (01:36→17:50)
[2016-09-04] MEDS: VANCOMYCIN 500 MG VIAL (FOR ORAL USE ONLY) PO SCH ×4 (03:28→23:01)
[2016-09-04] MEDS: FREE WATER G-TUBE SCH ×3 (06:00→22:00)
[2016-09-04] MEDS: cloNIDine HCL 0.1 MG TAB PO PRN (06:05)
[2016-09-04] MEDS: hydrOXYzine PAMOATE 25 MG CAP PO SCH ×2 (09:00→23:01)
[2016-09-04] MEDS: predniSONE 10 MG TAB PO SCH (09:23)
[2016-09-04] MEDS: POTASSIUM CL 40 MEQ/30 ML LIQ UDC GT SCH (09:23)
[2016-09-04] MEDS: MULTIVITAMIN TAB PO SCH (09:24)
[2016-09-04] MEDS: PANTOPRAZOLE SOD 40 MG DELAYED RELEASE TAB PO SCH (09:24)
[2016-09-04] MEDS: SODIUM CHLORIDE 0.9% FLUSH 5 ML FLUSH IV FLUSH SCH ×2 (09:28→23:01)
[2016-09-04] MEDS: LISINOPRIL 10 MG TAB PO SCH ×2 (09:28→23:02)
[2016-09-04] MEDS: CALAMINE/PRAMOXINE LOTION 180 ML BTL TOPICAL SCH ×2 (09:28→23:22)
[2016-09-04] MEDS: BACITRACIN TOP OINT 15 GM TUBE TOP SCH ×2 (09:29→23:23)
[2016-09-04] MEDS: BETAMETHASONE DIPROPIONATE 0.05% CREAM 15 GM TOPICAL SCH ×2 (09:29→23:23)
[2016-09-04] MEDS: PETROLATUM 49%/ZINC OXIDE 15% 4 OUNCE TUBE TOPICAL SCH (09:30)
[2016-09-04] MEDS: ENOXAPARIN SODIUM 40 MG/0.4 ML SYRINGE SQ SCH (15:31)
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
[2016-09-05] VITALS: BP 175/83; PULSE 72; RESP 18; TEMP 96.7; O2SAT 99
[2016-09-05] MEDS: METOPROLOL TARTRATE 50 MG TAB PO SCH ×3 (03:16→18:54)
[2016-09-05] MEDS: hydrALAZINE HCL 25 MG TAB PO SCH ×3 (03:16→18:54)
[2016-09-05] MEDS: VANCOMYCIN 500 MG VIAL (FOR ORAL USE ONLY) PO SCH ×4 (03:16→23:24)
[2016-09-05] MEDS: FREE WATER G-TUBE SCH ×3 (05:45→22:00)
[2016-09-05] MEDS: POTASSIUM PHOSPHATE/SODIUM PHOSPHATE 250 MG TAB PO SCH ×4 (05:45→23:24)
[2016-09-05 05:54] VITALS: BP 170/79; PULSE 76; RESP 24; TEMP 97.3; O2SAT 99
[2016-09-05 08:18] VITALS: BP 167/85; PULSE 78; RESP 20; TEMP 98.7; O2SAT 99
[2016-09-05] MEDS: POTASSIUM CL 40 MEQ/30 ML LIQ UDC GT SCH (09:35)
[2016-09-05] MEDS: MULTIVITAMIN TAB PO SCH (09:35)
[2016-09-05] MEDS: predniSONE 10 MG TAB PO SCH (09:35)
[2016-09-05] MEDS: hydrOXYzine PAMOATE 25 MG CAP PO SCH ×2 (09:36→23:23)
[2016-09-05] MEDS: SODIUM CHLORIDE 0.9% FLUSH 5 ML FLUSH IV FLUSH SCH ×2 (09:36→23:23)
[2016-09-05] MEDS: PANTOPRAZOLE SOD 40 MG DELAYED RELEASE TAB PO SCH (09:36)
[2016-09-05] MEDS: LISINOPRIL 10 MG TAB PO SCH (09:36)
[2016-09-05] MEDS: CALAMINE/PRAMOXINE LOTION 180 ML BTL TOPICAL SCH ×2 (09:37→23:25)
[2016-09-05] MEDS: PETROLATUM 49%/ZINC OXIDE 15% 4 OUNCE TUBE TOPICAL SCH (09:37)
[2016-09-05] MEDS: BACITRACIN TOP OINT 15 GM TUBE TOP SCH ×2 (09:37→23:25)
[2016-09-05] MEDS: BETAMETHASONE DIPROPIONATE 0.05% CREAM 15 GM TOPICAL SCH ×2 (09:38→23:27)
[2016-09-05 11:56] VITALS: BP 148/78; PULSE 84; RESP 20; TEMP 99.3; O2SAT 95
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
[2016-09-05] MEDS: ENOXAPARIN SODIUM 40 MG/0.4 ML SYRINGE SQ SCH (13:12)
[2016-09-05 15:44] VITALS: BP 121/68; PULSE 79; RESP 20; TEMP 99.5; O2SAT 95
[2016-09-05 20:00] VITALS: BP 151/87; PULSE 69; RESP 20; TEMP 97.2; O2SAT 98
[2016-09-05] MEDS: LISINOPRIL 20 MG TAB PO SCH (23:23)
[2016-09-05] MEDS: EUCERIN CREAM 120 GM JAR TOPICAL PRN (23:26)
[2016-09-06] VITALS (7 sets, daily range): BP systolic 120–168; BP diastolic 56–96; PULSE 80–102; RESP 20; TEMP 96–99.1; O2SAT 96–99
[2016-09-06] MEDS: METOPROLOL TARTRATE 50 MG TAB PO SCH ×3 (01:19→18:39)
[2016-09-06] MEDS: hydrALAZINE HCL 25 MG TAB PO SCH ×3 (01:58→18:39)
[2016-09-06] MEDS: VANCOMYCIN 500 MG VIAL (FOR ORAL USE ONLY) PO SCH ×4 (03:47→22:10)
[2016-09-06] MEDS: FREE WATER G-TUBE SCH ×3 (06:00→22:00)
[2016-09-06] MEDS: POTASSIUM PHOSPHATE/SODIUM PHOSPHATE 250 MG TAB PO SCH ×4 (06:52→23:36)
[2016-09-06] MEDS: PETROLATUM 49%/ZINC OXIDE 15% 4 OUNCE TUBE TOPICAL SCH (09:00)
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
[2016-09-06] MEDS: LISINOPRIL 20 MG TAB PO SCH ×2 (10:27→22:10)
[2016-09-06] MEDS: PANTOPRAZOLE SOD 40 MG DELAYED RELEASE TAB PO SCH (10:27)
[2016-09-06] MEDS: predniSONE 20 MG TAB PO SCH (10:27)
[2016-09-06] MEDS: POTASSIUM CL 40 MEQ/30 ML LIQ UDC GT SCH (10:27)
[2016-09-06] MEDS: hydrOXYzine PAMOATE 25 MG CAP PO SCH ×2 (10:27→22:10)
[2016-09-06] MEDS: MULTIVITAMIN TAB PO SCH (10:27)
[2016-09-06] MEDS: SODIUM CHLORIDE 0.9% FLUSH 5 ML FLUSH IV FLUSH SCH ×2 (10:28→23:34)
[2016-09-06] MEDS: EUCERIN CREAM 120 GM JAR TOPICAL PRN (10:29)
[2016-09-06] MEDS: CALAMINE/PRAMOXINE LOTION 180 ML BTL TOPICAL SCH ×2 (10:29→23:34)
[2016-09-06] MEDS: BACITRACIN TOP OINT 15 GM TUBE TOP SCH ×2 (10:29→23:35)
[2016-09-06] MEDS: BETAMETHASONE DIPROPIONATE 0.05% CREAM 15 GM TOPICAL SCH ×2 (10:29→23:34)
[2016-09-06] MEDS: ENOXAPARIN SODIUM 40 MG/0.4 ML SYRINGE SQ SCH (15:09)
--- NOTE | 2016-09-06 19:35 | HHI.PR ---
Subjective Subjective Notes stable overnight, +ostomy output, skin separation at ostomy site Objective Vitals/I&O Vital Signs Date Time Temp Pulse Resp B/P Pulse Ox O2 Delivery O2 Flow Rate FiO2 09/06/16 16:00 97.3 102 20 123/78 96 09/02/16 10:37 Room Air Labs Date/Time Procedure Status Source Growth 09/01/16 21:30 Urine Culture - Final Complete Urine Catheterized Urine [place] Tropicalis Cardiovascular: Regular Lungs: Clear Abdomen: Other (ostomy pink viable, medial skin separation) A/P Problem List: (1) Status post colostomy (2) Infected decubitus ulcer (3) History of CVA (cerebrovascular accident) (4) COPD (chronic obstructive pulmonary disease) (5) Neurocognitive disorder (6) Essential hypertension Assessment and Plan s/p colostomy, small skin separation PLAN Skin reapproximation at bedside loosely, pack with 2x2 coloplast for appliance adhesive Problem Qualifiers (1) Infected decubitus ulcer: Qualified Code: L89.95 - Infected decubitus ulcer, unstageable Héctor Echeverria MD Sep 06, 2016 19:35
[2016-09-07 01:00] VITALS: BP 105/66; PULSE 96; RESP 18; TEMP 97; O2SAT 98
[2016-09-07] MEDS: METOPROLOL TARTRATE 50 MG TAB PO SCH ×4 (01:00→16:40)
[2016-09-07] MEDS: hydrALAZINE HCL 25 MG TAB PO SCH ×4 (01:50→16:40)
[2016-09-07] MEDS: VANCOMYCIN 500 MG VIAL (FOR ORAL USE ONLY) PO SCH ×3 (03:55→16:39)
[2016-09-07 04:00] VITALS: BP 102/50; PULSE 87; RESP 18; TEMP 97; O2SAT 98
[2016-09-07] MEDS: FREE WATER G-TUBE SCH ×3 (06:00→22:00)
[2016-09-07] MEDS: POTASSIUM PHOSPHATE/SODIUM PHOSPHATE 250 MG TAB PO SCH ×3 (06:59→16:39)
[2016-09-07 08:08] VITALS: BP 125/76; PULSE 100; RESP 16; TEMP 97.6; O2SAT 94
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
[2016-09-07] MEDS: POTASSIUM CL 40 MEQ/30 ML LIQ UDC GT SCH (09:26)
[2016-09-07] MEDS: SODIUM CHLORIDE 0.9% FLUSH 5 ML FLUSH IV FLUSH SCH (09:30)
[2016-09-07] MEDS: LISINOPRIL 20 MG TAB PO SCH (09:31)
[2016-09-07] MEDS: predniSONE 20 MG TAB PO SCH (09:31)
[2016-09-07] MEDS: hydrOXYzine PAMOATE 25 MG CAP PO SCH (09:31)
[2016-09-07] MEDS: MULTIVITAMIN TAB PO SCH (09:31)
[2016-09-07] MEDS: PANTOPRAZOLE SOD 40 MG DELAYED RELEASE TAB PO SCH (09:31)
[2016-09-07] MEDS: BETAMETHASONE DIPROPIONATE 0.05% CREAM 15 GM TOPICAL SCH (09:32)
[2016-09-07] MEDS: CALAMINE/PRAMOXINE LOTION 180 ML BTL TOPICAL SCH (09:32)
[2016-09-07] MEDS: BACITRACIN TOP OINT 15 GM TUBE TOP SCH (09:32)
[2016-09-07] MEDS: PETROLATUM 49%/ZINC OXIDE 15% 4 OUNCE TUBE TOPICAL SCH (09:32)
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
[2016-09-07] MEDS: NYSTATIN SUSP 500,000 U/5 ML CUP SWISH-SWAL SCH ×3 (12:30→21:00)
[2016-09-07] MEDS: ENOXAPARIN SODIUM 40 MG/0.4 ML SYRINGE SQ SCH (12:30)
[2016-09-07 12:38] VITALS: BP 148/86; PULSE 85; RESP 18; TEMP 97.4; O2SAT 96
[2016-09-07 16:00] VITALS: BP 106/66; PULSE 96; RESP 17; TEMP 95.8; O2SAT 95
[2016-09-07 20:00] VITALS: BP 120/76; PULSE 112; RESP 20; TEMP 96.2; O2SAT 94
[2016-09-08] VITALS (7 sets, daily range): BP systolic 94–129; BP diastolic 56–84; PULSE 83–122; RESP 18–20; TEMP 96.3–98.7; O2SAT 94–99
[2016-09-08] MEDS: VANCOMYCIN 500 MG VIAL (FOR ORAL USE ONLY) PO SCH ×5 (01:15→23:41)
[2016-09-08] MEDS: LISINOPRIL 20 MG TAB PO SCH ×3 (01:16→21:00)
[2016-09-08] MEDS: METOPROLOL TARTRATE 50 MG TAB PO SCH ×3 (01:16→16:13)
[2016-09-08] MEDS: hydrALAZINE HCL 25 MG TAB PO SCH ×3 (01:16→16:13)
[2016-09-08] MEDS: hydrOXYzine PAMOATE 25 MG CAP PO SCH ×3 (01:17→23:40)
[2016-09-08] MEDS: POTASSIUM PHOSPHATE/SODIUM PHOSPHATE 250 MG TAB PO SCH ×5 (01:17→23:40)
[2016-09-08] MEDS: BACITRACIN TOP OINT 15 GM TUBE TOP SCH ×3 (01:22→23:52)
[2016-09-08] MEDS: CALAMINE/PRAMOXINE LOTION 180 ML BTL TOPICAL SCH ×2 (01:23→09:00)
[2016-09-08] MEDS: BETAMETHASONE DIPROPIONATE 0.05% CREAM 15 GM TOPICAL SCH ×2 (01:23→09:04)
[2016-09-08] MEDS: SODIUM CHLORIDE 0.9% FLUSH 5 ML FLUSH IV FLUSH SCH ×3 (01:24→23:39)
[2016-09-08] MEDS: FREE WATER G-TUBE SCH ×3 (06:00→23:40)
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
[2016-09-08 08:38] LABS: AUTOMATED NEUTROPHIL # 4.7 TH/MM3 (1.8-7.7); BASOPHIL % 0.5 % (0.0-2.0); EOSINOPHIL # 0.3 TH/MM3 (0-0.4); EOSINOPHIL % 4.7 % (0.0-4.0); HEMATOCRIT 30.4 % (35.0-46.0); HEMO FLAGS DIFF FINAL; LYMPH % 13.3 % (9.0-44.0); LYMPHOCYTE # 0.9 TH/MM3 (1.0-4.8); MEAN CELL VOLUME 84.9 FL (80.0-100.0); MEAN CORPUSCULAR HEMOGLOBIN 27.8 PG (27.0-34.0); MEAN CORPUSCULAR HGB CONC 32.7 % (32.0-36.0); MONO % 8.1 % (0.0-8.0); NEUT % 73.4 % (16.0-70.0); PLATELET COUNT 192 TH/MM3 (150-450); RED BLOOD COUNT 3.58 MIL/MM3 (4.00-5.30); RED CELL DISTRIBUTION WIDTH 16.5 % (11.6-17.2); WHITE BLOOD COUNT 6.5 TH/MM3 (4.0-11.0)
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
[2016-09-08 08:47] LABS: BICARBONATE 27.7 MEQ/L (21.0-32.0); POTASSIUM 4.4 MEQ/L (3.5-5.1)
[2016-09-08] MEDS: predniSONE 10 MG TAB PO SCH (09:02)
[2016-09-08] MEDS: MULTIVITAMIN TAB PO SCH (09:02)
[2016-09-08] MEDS: NYSTATIN SUSP 500,000 U/5 ML CUP SWISH-SWAL SCH ×4 (09:02→23:38)
[2016-09-08] MEDS: POTASSIUM CL 40 MEQ/30 ML LIQ UDC GT SCH (09:02)
[2016-09-08] MEDS: PANTOPRAZOLE SOD 40 MG DELAYED RELEASE TAB PO SCH (09:02)
[2016-09-08] MEDS: PETROLATUM 49%/ZINC OXIDE 15% 4 OUNCE TUBE TOPICAL SCH (09:04)
[2016-09-08] MEDS: ENOXAPARIN SODIUM 40 MG/0.4 ML SYRINGE SQ SCH (13:14)
[2016-09-08] MEDS: EUCERIN CREAM 120 GM JAR TOPICAL PRN (23:51)
[2016-09-09] VITALS: BP 118/71; PULSE 114; RESP 20; TEMP 98.9; O2SAT 98
[2016-09-09] MEDS: CALAMINE/PRAMOXINE LOTION 180 ML BTL TOPICAL SCH ×3 (00:13→20:58)
[2016-09-09] MEDS: BETAMETHASONE DIPROPIONATE 0.05% CREAM 15 GM TOPICAL SCH ×3 (00:13→20:58)
[2016-09-09] MEDS: METOPROLOL TARTRATE 50 MG TAB PO SCH ×3 (00:35→18:13)
[2016-09-09] MEDS: hydrALAZINE HCL 25 MG TAB PO SCH ×3 (00:36→18:12)
[2016-09-09 04:00] VITALS: BP 102/59; PULSE 100; RESP 20; TEMP 97.3; O2SAT 97
[2016-09-09] MEDS: POTASSIUM PHOSPHATE/SODIUM PHOSPHATE 250 MG TAB PO SCH ×3 (05:08→18:12)
[2016-09-09] MEDS: VANCOMYCIN 500 MG VIAL (FOR ORAL USE ONLY) PO SCH ×4 (05:08→20:57)
[2016-09-09] MEDS: FREE WATER G-TUBE SCH ×3 (05:09→20:58)
[2016-09-09 08:00] VITALS: BP 104/58; PULSE 72; RESP 16; TEMP 97.5; O2SAT 96
[2016-09-09] MEDS: predniSONE 10 MG TAB PO SCH (09:00)
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
[2016-09-09] MEDS: hydrOXYzine PAMOATE 25 MG CAP PO SCH ×2 (10:20→20:57)
[2016-09-09] MEDS: NYSTATIN SUSP 500,000 U/5 ML CUP SWISH-SWAL SCH ×4 (10:21→20:57)
[2016-09-09] MEDS: MULTIVITAMIN TAB PO SCH (10:21)
[2016-09-09] MEDS: LISINOPRIL 20 MG TAB PO SCH ×2 (10:21→20:57)
[2016-09-09] MEDS: POTASSIUM CL 40 MEQ/30 ML LIQ UDC GT SCH (10:21)
[2016-09-09] MEDS: PANTOPRAZOLE SOD 40 MG DELAYED RELEASE TAB PO SCH (10:21)
[2016-09-09] MEDS: SODIUM CHLORIDE 0.9% FLUSH 5 ML FLUSH IV FLUSH SCH ×2 (10:22→20:57)
[2016-09-09] MEDS: BACITRACIN TOP OINT 15 GM TUBE TOP SCH ×2 (10:23→20:58)
[2016-09-09] MEDS: EUCERIN CREAM 120 GM JAR TOPICAL PRN (10:23)
[2016-09-09] MEDS: PETROLATUM 49%/ZINC OXIDE 15% 4 OUNCE TUBE TOPICAL SCH (10:24)
--- NOTE | 2016-09-09 10:38 | HHI.PR ---
Subjective Subjective Notes Waved when I entered room Did not want abdomen examed at first; some what irritated with me Objective Vitals/I&O Vital Signs Date Time Temp Pulse Resp B/P Pulse Ox O2 Delivery O2 Flow Rate FiO2 09/09/16 08:00 97.5 72 16 104/58 96 Cardiovascular: Regular Lungs: Clear Abdomen: Other (colostomy in place with stool; applicance in place without leakage of stool; PEG in place with TF ) Narrative Exam generalized edema A/P Problem List: (1) Status post colostomy (2) Infected decubitus ulcer (3) History of CVA (cerebrovascular accident) (4) COPD (chronic obstructive pulmonary disease) (5) Neurocognitive disorder (6) Essential hypertension Assessment and Plan 60 year old female with large sacral wound; s/p colostomy placement and colostomy revision -Colostomy in good working function with stool; appliance in place without stool leaking -Continue routine colostomy care -Tolerating TF -GS will follow peripherally Attending Note Wound looks clean Colostomy functioning well Stable Would not transfer until next week, as pt. heals extremely slowly; need to ensure adequate tissue healing to avoid readmission. The exam, history, and the medical decision-making described in the above note were completed with the assistance of the mid-level provider. I reviewed and agree with the findings presented. I attest that I had a [id number] encounter with the patient on the same day, and personally performed and documented my assessment and findings in the medical record. Problem Qualifiers (1) Infected decubitus ulcer: Qualified Code: L89.95 - Infected decubitus ulcer, unstageable Ruma Orta Sep 09, 2016 10:38 Zechariah Faulkner MD Sep 09, 2016 19:13
[2016-09-09 12:00] VITALS: BP 113/71; PULSE 68; RESP 18; TEMP 98.4; O2SAT 96
[2016-09-09] MEDS: ENOXAPARIN SODIUM 40 MG/0.4 ML SYRINGE SQ SCH (12:41)
[2016-09-09 16:00] VITALS: BP 111/65; PULSE 81; RESP 18; TEMP 97.6; O2SAT 96
[2016-09-09 20:50] VITALS: BP 126/78; PULSE 111; RESP 18; TEMP 98.5; O2SAT 98
[2016-09-09] MEDS: diphenhydrAMINE HCL 25 MG CAP PO PRN (20:57)
[2016-09-10] VITALS (9 sets, daily range): BP systolic 91–145; BP diastolic 59–83; PULSE 96–182; RESP 18–40; TEMP 97.7–101.4; O2SAT 88–98
[2016-09-10] MEDS: hydrALAZINE HCL 25 MG TAB PO SCH (02:29)
[2016-09-10] MEDS: METOPROLOL TARTRATE 50 MG TAB PO SCH (02:29)
[2016-09-10] MEDS: VANCOMYCIN 500 MG VIAL (FOR ORAL USE ONLY) PO SCH ×4 (02:29→22:38)
[2016-09-10] MEDS: FREE WATER G-TUBE SCH ×3 (04:50→22:39)
[2016-09-10] MEDS: POTASSIUM PHOSPHATE/SODIUM PHOSPHATE 250 MG TAB PO SCH ×4 (04:51→18:00)
[2016-09-10] MEDS ORDERED: predniSONE 5 MG TAB PO SCH (09:00)
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
[2016-09-10] MEDS ORDERED: Vancomycin Consult Pharmacy 1 EA OTHER SCH (09:15)
--- NOTE | 2016-09-10 09:55 | RADRPT ---
EXAM DATE/TIME: 09/10/2016 09:17 [facility] COMPARISON: CHEST SINGLE AP, August 18, 2016, 5:18. POC ULTRASOUND VASCULAR ACCESS TEAM, August 28, 2016, 9:5 5. INDICATIONS : SOB MEDICAL HISTORY : Pneumonia SURGICAL HISTORY : None. ENCOUNTER: Subsequent ACUITY: 1 week PAIN SCORE: 0/10 LOCATION: chest FINDINGS: The previously noted right-sided central line has been removed. There is a left-sided central line re maining with the tip overlying the region of the distal SVC. The lungs are well inflated and clear. T he previously noted pleural effusions have resolved. Heart size is normal. Pulmonary vasculature is n ormal. Osseous structures are unremarkable. CONCLUSION: Significantly improved exam. No current evidence of pleural effusion or airspace consolidation. Ann Marie Tilley MD on September 10, 2016 at 9:52 Board Certified Radiologist. This report was verified electronically.
[2016-09-10] MEDS ORDERED: FUROSEMIDE 40 MG/4 ML VIAL IV PUSH ONE (10:00)
[2016-09-10] MEDS ORDERED: VANCOMYCIN INJ 1,000 MG in SODIUM CHLOR 0.9% 250 ML INJ 250 ML IV ONE (10:00)
[2016-09-10 10:37] LABS: HEMATOCRIT 34.4 % (35.0-46.0); MEAN CELL VOLUME 85.5 FL (80.0-100.0); MEAN CORPUSCULAR HEMOGLOBIN 26.9 PG (27.0-34.0); MEAN CORPUSCULAR HGB CONC 31.5 % (32.0-36.0); PLATELET COUNT 199 TH/MM3 (150-450); RED BLOOD COUNT 4.02 MIL/MM3 (4.00-5.30); RED CELL DISTRIBUTION WIDTH 17.1 % (11.6-17.2); WHITE BLOOD COUNT 4.8 TH/MM3 (4.0-11.0)
[2016-09-10 10:41] LABS: HEMO FLAGS AUTO DIFF; INTERNATIONAL NORMALIZED RATIO 1.3 RATIO; PROTHROMBIN TIME - PATIENT 14.2 SEC (9.8-11.6)
[2016-09-10] MEDS: NYSTATIN SUSP 500,000 U/5 ML CUP SWISH-SWAL SCH ×4 (10:50→21:00)
[2016-09-10] MEDS: POTASSIUM CL 40 MEQ/30 ML LIQ UDC GT SCH (10:51)
[2016-09-10] MEDS: MULTIVITAMIN TAB PO SCH (10:51)
[2016-09-10] MEDS: SODIUM CHLORIDE 0.9% FLUSH 5 ML FLUSH IV FLUSH SCH ×2 (10:51→21:00)
[2016-09-10] MEDS: PANTOPRAZOLE SOD 40 MG DELAYED RELEASE TAB PO SCH (10:51)
[2016-09-10] MEDS: BETAMETHASONE DIPROPIONATE 0.05% CREAM 15 GM TOPICAL SCH ×2 (10:52→22:40)
[2016-09-10] MEDS: BACITRACIN TOP OINT 15 GM TUBE TOP SCH ×2 (10:52→22:40)
[2016-09-10] MEDS: PETROLATUM 49%/ZINC OXIDE 15% 4 OUNCE TUBE TOPICAL SCH (10:53)
[2016-09-10] MEDS: CALAMINE/PRAMOXINE LOTION 180 ML BTL TOPICAL SCH ×2 (10:53→22:41)
[2016-09-10] MEDS: PIPERACIL-TAZO 3.375 GM PREMIX 50 ML IV SCH ×3 (10:54→22:00)
[2016-09-10] MEDS: VANCOMYCIN INJ 1,000 MG in SODIUM CHLOR 0.9% 250 ML INJ 250 ML IV SCH (10:54)
[2016-09-10 10:55] LABS: ANION GAP 13 MEQ/L (5-15); AST (GOT) 24 U/L (15-37); BICARBONATE 23.2 MEQ/L (21.0-32.0); BLOOD UREA NITROGEN 44 MG/DL (7-18); CHLORIDE 99 MEQ/L (98-107); GLOMERULAR FILTRATION RATE 27 ML/MIN (>89); MAGNESIUM 1.9 MG/DL (1.5-2.5); POTASSIUM 5.5 MEQ/L (3.5-5.1); SODIUM (NA) 135 MEQ/L (136-145)
[2016-09-10 11:06] LABS: ALKALINE PHOSPHATASE 142 U/L (45-117); ALT (GPT) 31 U/L (10-53); TOTAL BILIRUBIN ADULT 0.5 MG/DL (0.2-1.0)
[2016-09-10 11:21] LABS: BANDS 24 % (0-6); CORRECTED NUCLEATED RBC 5 /100 WBC (0-0); METAMYELOCYTES 1 % (0-1); NEUTROPHIL # MANUAL DIFF 4.5 TH/MM3 (1.8-7.7); POLYS (SEG NEUTROPHILS) 69 % (16-70); SCAN/DIFF FINAL DIFF MANUAL; WBC DIFF SAMPLE 100
[2016-09-10 11:22] LABS: PLATELET ESTIMATE SMEAR NORMAL (NORMAL); PLATELET MORPHOLOGY NORMAL (NORMAL); TOXIC VACUOLATION PRESENT (NONE SEEN)
[2016-09-10 12:04] LABS: BACTERIA, URINE FEW /hpf; BLOOD, URINE NEG (NEG); GLUCOSE,URINE 150 mg/dL (NEG); KETONE, URINE NEG (NEG); MUCUS URINE FEW /lpf (OCC); PH, URINE 8.5 (5.0-8.5); SQUAMOUS EPITHELIAL CELL URINE 1 /hpf (0-5); URINE COLOR YELLOW (YELLW/STRAW)
[2016-09-10 12:10] LABS: NITRITE,URINE POS (NEG)
[2016-09-10 12:11] LABS: COMMENT (UR) CULTURE INDICATED; CULTURE IF INDICATED CULTURE INDICATED
[2016-09-10] MEDS: ACETAMINOPHEN 325 MG TAB PO PRN (13:06)
[2016-09-10] MEDS: ENOXAPARIN SODIUM 40 MG/0.4 ML SYRINGE SQ SCH (13:06)
[2016-09-10] MEDS: methylPREDNISolone SOD SUCC 40 MG/1 ML VIAL IV PUSH SCH ×2 (13:07→22:39)
[2016-09-10] MEDS ORDERED: SODIUM CHLOR 0.9% 1000 ML INJ 1,000 ML IV ONE (14:45)
[2016-09-10] MEDS: SODIUM CHLOR 0.9% 1000 ML INJ 1,000 ML IV SCH ×2 (15:25→22:40)
[2016-09-10] MEDS: RESP: ALBUTEROL 2.5 MG/IPRATROPIUM 0.5 MG NEB (SCH) NEB ×2 (15:28→23:48)
[2016-09-10 19:46] LABS: LACTIC ACID GHOST NOT REPORTABLE
[2016-09-11] VITALS (8 sets, daily range): BP systolic 104–129; BP diastolic 64–78; PULSE 68–96; RESP 16–18; TEMP 95.1–97.6; O2SAT 94–100
[2016-09-11] MEDS: VANCOMYCIN INJ 1,000 MG in SODIUM CHLOR 0.9% 250 ML INJ 250 ML IV SCH (01:03)
[2016-09-11] MEDS: VANCOMYCIN 500 MG VIAL (FOR ORAL USE ONLY) PO SCH ×4 (04:43→22:00)
[2016-09-11] MEDS: PIPERACIL-TAZO 3.375 GM PREMIX 50 ML IV SCH ×4 (04:43→22:00)
[2016-09-11] MEDS: FREE WATER G-TUBE SCH ×3 (04:44→22:00)
[2016-09-11] MEDS: POTASSIUM PHOSPHATE/SODIUM PHOSPHATE 250 MG TAB PO SCH ×4 (04:44→16:50)
[2016-09-11] MEDS: methylPREDNISolone SOD SUCC 40 MG/1 ML VIAL IV PUSH SCH (04:44)
[2016-09-11] MEDS: SODIUM CHLOR 0.9% 1000 ML INJ 1,000 ML IV SCH ×3 (04:45→20:47)
[2016-09-11 07:26] LABS: AUTOMATED NEUTROPHIL # 6.2 TH/MM3 (1.8-7.7); BASOPHIL % 0.3 % (0.0-2.0); EOSINOPHIL % 0.1 % (0.0-4.0); HEMATOCRIT 22.4 % (35.0-46.0); LYMPH % 6.2 % (9.0-44.0); LYMPHOCYTE # 0.4 TH/MM3 (1.0-4.8); MEAN CORPUSCULAR HEMOGLOBIN 27.4 PG (27.0-34.0); MEAN CORPUSCULAR HGB CONC 32.6 % (32.0-36.0); MONO % 6.1 % (0.0-8.0); NEUT % 87.3 % (16.0-70.0); PLATELET COUNT 110 TH/MM3 (150-450); RED BLOOD COUNT 2.66 MIL/MM3 (4.00-5.30); RED CELL DISTRIBUTION WIDTH 16.7 % (11.6-17.2); WHITE BLOOD COUNT 7.1 TH/MM3 (4.0-11.0)
[2016-09-11 07:38] LABS: BICARBONATE 22.8 MEQ/L (21.0-32.0); MAGNESIUM 2.2 MG/DL (1.5-2.5); POTASSIUM 4.5 MEQ/L (3.5-5.1)
[2016-09-11 07:49] LABS: HEMO FLAGS AUTO DIFF
[2016-09-11] MEDS: RESP: ALBUTEROL 2.5 MG/IPRATROPIUM 0.5 MG NEB (SCH) NEB ×2 (07:53→15:29)
[2016-09-11] MEDS: SODIUM CHLORIDE 0.9% FLUSH 5 ML FLUSH IV FLUSH SCH ×2 (09:00→22:00)
[2016-09-11] MEDS: MULTIVITAMIN TAB PO SCH (09:00)
[2016-09-11] MEDS: POTASSIUM CL 40 MEQ/30 ML LIQ UDC GT SCH (09:00)
[2016-09-11] MEDS: PETROLATUM 49%/ZINC OXIDE 15% 4 OUNCE TUBE TOPICAL SCH (09:00)
[2016-09-11] MEDS: BACITRACIN TOP OINT 15 GM TUBE TOP SCH ×2 (09:00→22:00)
[2016-09-11] MEDS: CALAMINE/PRAMOXINE LOTION 180 ML BTL TOPICAL SCH ×2 (09:00→22:00)
[2016-09-11] MEDS: NYSTATIN SUSP 500,000 U/5 ML CUP SWISH-SWAL SCH ×4 (09:00→22:00)
[2016-09-11] MEDS: BETAMETHASONE DIPROPIONATE 0.05% CREAM 15 GM TOPICAL SCH ×2 (09:00→22:00)
[2016-09-11] MEDS: PANTOPRAZOLE SOD 40 MG DELAYED RELEASE TAB PO SCH (09:00)
[2016-09-11 09:53] LABS: BANDS 45 % (0-6); METAMYELOCYTES 2 % (0-1); NEUTROPHIL # MANUAL DIFF 6.2 TH/MM3 (1.8-7.7); POLYS (SEG NEUTROPHILS) 41 % (16-70); WBC DIFF SAMPLE 100
[2016-09-11 09:55] LABS: PLATELET ESTIMATE SMEAR LOW (NORMAL); PLATELET MORPHOLOGY NORMAL (NORMAL); SCAN/DIFF FINAL DIFF MANUAL
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
--- NOTE | 2016-09-11 10:59 | HHI.PR ---
Subjective Subjective Notes Slightly agitated during my visit Objective Vitals/I&O Vital Signs Date Time Temp Pulse Resp B/P Pulse Ox O2 Delivery O2 Flow Rate FiO2 09/11/16 08:39 97.4 76 18 128/68 98 09/11/16 07:56 Nasal Cannula 2.00 Labs Laboratory Tests Test 09/10/16 09/10/16 09/10/16 09/10/16 11:00 12:45 17:21 21:52 Urine Color YELLOW Urine Turbidity CLOUDY Urine pH 8.5 Urine Specific [place] 1.016 Urine Protein 300 Urine Glucose (UA) 150 Urine Ketones NEG Urine Occult Blood NEG Urine Nitrite POS Urine Bilirubin NEG Urine Urobilinogen LESS THAN 2.0 Urine Leukocyte Esterase LARGE Urine RBC 30 Urine WBC 18 Urine Squamous Epithelial 1 Cells Urine Amorphous Sediment RARE Urine Bacteria FEW Urine Mucus FEW Urine Yeast (Budding) MANY Microscopic Urinalysis Comment CULTURE INDICATED Lactic Acid Level 6.7 6.2 6.4 Troponin I 0.18 Test 09/11/16 06:38 White Blood Count 7.1 Red Blood Count 2.66 Hemoglobin 7.3 Hematocrit 22.4 Mean Corpuscular Volume 84.0 Mean Corpuscular Hemoglobin 27.4 Mean Corpuscular Hemoglobin 32.6 Concent Red Cell Distribution Width 16.7 Platelet Count 110 Mean Platelet Volume 9.0 Neutrophils (%) (Auto) 87.3 Lymphocytes (%) (Auto) 6.2 Monocytes (%) (Auto) 6.1 Eosinophils (%) (Auto) 0.1 Basophils (%) (Auto) 0.3 Neutrophils # (Auto) 6.2 Lymphocytes # (Auto) 0.4 Monocytes # (Auto) 0.4 Eosinophils # (Auto) 0.0 Basophils # (Auto) 0.0 CBC Comment AUTO DIFF Differential Total Cells 100 Counted Neutrophils % (Manual) 41 Band Neutrophils % 45 Lymphocytes % 6 Monocytes % 6 Neutrophils # (Manual) 6.2 Metamyelocytes 2 Differential Comment FINAL DIFF MANUAL Platelet Estimate LOW Platelet Morphology Comment NORMAL Sodium Level 139 Potassium Level 4.5 Chloride Level 106 Carbon Dioxide Level 22.8 Anion Gap 10 Blood Urea Nitrogen 47 Creatinine 1.46 Estimat Glomerular Filtration 37 Rate Random Glucose 251 Calcium Level 8.1 Magnesium Level 2.2 Date/Time Procedure Status Source Growth 09/10/16 11:00 Urine Culture Received Urine Clean Catch Pending 09/10/16 10:12 Aerobic Blood Culture Received Blood Peripheral Pending 09/10/16 10:12 Anaerobic Blood Culture Received Blood Peripheral Pending Cardiovascular: Regular Lungs: Clear Abdomen: Other (Colostomy in good working function without bowel leaking; applicance in place ) Narrative Exam generalized edema A/P Problem List: (1) Status post colostomy (2) Infected decubitus ulcer (3) History of CVA (cerebrovascular accident) (4) COPD (chronic obstructive pulmonary disease) (5) Neurocognitive disorder (6) Essential hypertension Assessment and Plan 60 year old female with large sacral wound; s/p colostomy placement and colostomy revision -Colostomy in good working function with stool; appliance in place without stool leaking -Continue routine nursing colostomy care -Tolerating TF -GS will follow peripherally Attending Note Wound clean without erythema No drainage The exam, history, and the medical decision-making described in the above note were completed with the assistance of the mid-level provider. I reviewed and agree with the findings presented. I attest that I had a [id number] encounter with the patient on the same day, and personally performed and documented my assessment and findings in the medical record. Problem Qualifiers (1) Infected decubitus ulcer: Qualified Code: L89.95 - Infected decubitus ulcer, unstageable Ruma Orta Sep 11, 2016 10:59 Zechariah Faulkner MD Sep 11, 2016 17:36
[2016-09-11] MEDS ORDERED: FUROSEMIDE 40 MG/4 ML VIAL ONE (12:10)
[2016-09-11] MEDS: ENOXAPARIN SODIUM 40 MG/0.4 ML SYRINGE SQ SCH (12:16)
--- NOTE | 2016-09-11 12:43 | PD.CARD.PN ---
Subjective Subjective Remarks Yesterday events noted Episode of SVT likely afib with nonspecific ST changes Objective Medications Current Medications Medications (Trade) Dose Ordered Sig/Cesar Route Start Time Stop Time Status Last Admin (Lactulose Liq) 30 ml BID PO 05/31/16 21:00 Hold (NS Flush) 2 ml UNSCH PRN IV FLUSH 05/31/16 15:30 08/24/16 23:34 (NS Flush) 2 ml BID IV FLUSH 05/31/16 21:00 09/11/16 09:00 (Zofran Inj) 4 mg Q6H PRN IV 05/31/16 15:30 08/25/16 15:42 (Cyndee-Colace) 1 tab BID PRN PO 06/06/16 10:15 (K-Phos Neutral) 250 mg Q6HR PO 06/10/16 20:15 09/11/16 12:15 (Vasotec Inj) 1.25 mg Q6H PRN IV 06/11/16 13:15 09/02/16 11:58 (Santyl Oint) 1 applic DAILY TOP 06/18/16 12:15 Hold 08/18/16 08:36 (Eucerin Cream) 1 applic Q6H PRN TOPICAL 06/29/16 15:00 09/09/16 10:23 (Baciguent Oint) 1 applic Q12HR TOP 07/04/16 21:00 09/11/16 09:00 (Benadryl) 25 mg Q8HR PRN PO 07/04/16 09:45 09/09/16 20:57 (Emla Cream) 1 applic UNSCH PRN TOPICAL 07/18/16 09:45 (Lovenox Inj) 40 mg Q24H SQ 07/21/16 14:00 09/11/16 12:16 (Caladryl Lotion) 1 applic Q12HR TOPICAL 07/22/16 21:00 09/11/16 09:00 (Diprosone 0.05% Cream) 1 applic BID TOPICAL 08/08/16 21:00 09/11/16 09:00 (Aveeno Packet) 42 gm BID PRN TOPICAL 08/13/16 17:45 Acetaminophen 650 mg 650 mg Q4H PRN PO 08/14/16 01:45 09/10/16 13:06 (Lr 1000 ml Inj) 1,000 ml @ 110 mls/hr Q9H6M IV 08/14/16 08:00 Hold 08/18/16 07:20 (D50w (Vial) Inj) 25 ml UNSCH PRN IV PUSH 08/14/16 09:00 (Glucagon Inj) 1 mg UNSCH PRN OTHER 08/14/16 09:00 (VANCOMYCIN for oral use only) 500 mg Q6H PO 08/14/16 21:15 09/11/16 09:15 (KCl 40 Meq/30 ml Liq) 40 meq DAILY GT 08/16/16 15:45 09/11/16 09:00 (Catapres) 0.1 mg Q4H PRN PO 08/17/16 10:45 09/04/16 06:05 (Lopressor) 50 mg Q8H PO 08/17/16 17:00 Hold 09/10/16 02:29 (Free Water) 200 ml Q8HR G-TUBE 08/18/16 10:00 09/11/16 04:44 (Sensi-Care Protective Barrier Oint) 1 applic DAILY TOPICAL 08/24/16 09:00 09/11/16 09:00 (Theragran) 1 tab DAILY PO 08/27/16 09:00 09/11/16 09:00 (Vistaril) 25 mg BID PO 08/31/16 21:00 Hold 09/09/16 20:57 (Apresoline) 25 mg Q8H PO 09/01/16 10:00 Hold 09/10/16 02:29 (Protonix) 40 mg DAILY PO 09/04/16 09:00 09/11/16 09:00 (Prinivil) 20 mg BID PO 09/05/16 21:00 Hold 09/09/16 20:57 Nystatin 5 ml 5 ml QID SWISH-SWAL 09/07/16 13:00 09/12/16 13:00 09/11/16 09:00 Piperacillin Sod/ Tazobactam Sod 50 ml @ 100 mls/hr Q6H IV 09/10/16 10:00 09/11/16 10:00 (NS 1000 ml Inj) 1,000 ml @ 150 mls/hr Q6H40M IV 09/10/16 14:45 09/11/16 04:45 Vital Signs / I&O Vital Signs Date Time Temp Pulse Resp B/P Pulse Ox O2 Delivery O2 Flow Rate FiO2 09/11/16 12:17 95.1 92 18 106/69 96 09/11/16 08:39 97.4 76 18 128/68 98 09/11/16 07:56 97 Nasal Cannula 2.00 09/11/16 04:00 96.2 68 16 114/67 100 09/11/16 01:10 98 09/11/16 01:09 97.6 80 18 104/64 94 09/10/16 23:51 91 Nasal Cannula 2.00 09/10/16 20:23 97.8 96 18 91/59 97 09/10/16 20:10 102/60 09/10/16 16:00 97.7 118 28 134/73 92 09/10/16 15:28 92 Nasal Cannula 2.00 I/O 09/10/16 09/10/16 09/10/16 09/11/16 09/11/16 09/11/16 07:00 15:00 23:00 07:00 15:00 23:00 Intake Total 1434 ml Output Total 200 ml 400 ml 600 ml 0 ml Balance 1234 ml -400 ml -600 ml 0 ml Tube Feeding 1234 ml Other 200 ml Output Urine Total 200 ml 100 ml 600 ml Stool Total 300 ml Tube Feeding Residual Discard 0 ml Physical Exam GENERAL: Well-nourished, well-developed patient. SKIN: Warm and dry. HEAD: Normocephalic. EYES: No scleral icterus. No injection or drainage. NECK: Supple, trachea midline. No JVD or lymphadenopathy. CARDIOVASCULAR: Regular rate and rhythm without murmurs, gallops, or rubs. RESPIRATORY: Breath sounds equal bilaterally. No accessory muscle use. GASTROINTESTINAL: Abdomen soft, non-tender, nondistended. EXTREMITIES: No cyanosis, or edema. Laboratory Laboratory Tests Test 09/10/16 09/10/16 09/10/16 09/11/16 12:45 17:21 21:52 06:38 Lactic Acid Level 6.7 mmol/L 6.2 mmol/L 6.4 mmol/L Troponin I 0.18 NG/ML White Blood Count 7.1 TH/MM3 Red Blood Count 2.66 MIL/MM3 Hemoglobin 7.3 GM/DL Hematocrit 22.4 % Mean Corpuscular Volume 84.0 FL Mean Corpuscular Hemoglobin 27.4 PG Mean Corpuscular Hemoglobin 32.6 % Concent Red Cell Distribution Width 16.7 % Platelet Count 110 TH/MM3 Mean Platelet Volume 9.0 FL Neutrophils (%) (Auto) 87.3 % Lymphocytes (%) (Auto) 6.2 % Monocytes (%) (Auto) 6.1 % Eosinophils (%) (Auto) 0.1 % Basophils (%) (Auto) 0.3 % Neutrophils # (Auto) 6.2 TH/MM3 Lymphocytes # (Auto) 0.4 TH/MM3 Monocytes # (Auto) 0.4 TH/MM3 Eosinophils # (Auto) 0.0 TH/MM3 Basophils # (Auto) 0.0 TH/MM3 CBC Comment AUTO DIFF Differential Total Cells 100 Counted Neutrophils % (Manual) 41 % Band Neutrophils % 45 % Lymphocytes % 6 % Monocytes % 6 % Neutrophils # (Manual) 6.2 TH/MM3 Metamyelocytes 2 % Differential Comment FINAL DIFF MANUAL Platelet Estimate LOW Platelet Morphology Comment NORMAL Sodium Level 139 MEQ/L Potassium Level 4.5 MEQ/L Chloride Level 106 MEQ/L Carbon Dioxide Level 22.8 MEQ/L Anion Gap 10 MEQ/L Blood Urea Nitrogen 47 MG/DL Creatinine 1.46 MG/DL Estimat Glomerular Filtration 37 ML/MIN Rate Random Glucose 251 MG/DL Calcium Level 8.1 MG/DL Magnesium Level 2.2 MG/DL Assessment and Plan Problem List: (1) Elevated troponin Assessment and Plan: Hemodynamically stable, chest pain free In the setting of SVT No acute ST changes Cont aggressive medical management for CAD Consider CTA to r/o PE (2) Bradycardia Jose Grullon MD Sep 11, 2016 12:43
[2016-09-11 18:43] LABS: HEMATOCRIT 23.8 % (35.0-46.0); REVIEW FLAG FINAL
--- NOTE | 2016-09-11 21:16 | EKG ---
Date Performed: 09/10/2016 Time Performed: 15:24:58 PTAGE: 61 years EKG: SINUS TACHYCARDIA LOW QRS VOLTAGE IN EXTREMITY LEADS Peaked T waves ACUTE MD PREVIOUS TRACING : 09/10/2016 13.51 DOCTOR: Jose Grullon Interpretating Date/Time 09/11/2016 21:07:53
--- NOTE | 2016-09-11 21:19 | EKG ---
Date Performed: 09/10/2016 Time Performed: 13:51:24 PTAGE: 61 years EKG: SINUS TACHYCARDIA ABNORMAL RHYTHM ECG PREVIOUS TRACING : 05/31/2016 15.24 DOCTOR: Jose Grullon Interpretating Date/Time 09/11/2016 21:09:23
[2016-09-12] VITALS (10 sets, daily range): BP systolic 127–160; BP diastolic 76–98; PULSE 88–113; RESP 18–20; TEMP 96.5–99.1; O2SAT 92–97
[2016-09-12] MEDS: RESP: ALBUTEROL 2.5 MG/IPRATROPIUM 0.5 MG NEB (SCH) NEB ×4 (00:51→15:58)
[2016-09-12] MEDS: POTASSIUM PHOSPHATE/SODIUM PHOSPHATE 250 MG TAB PO SCH ×4 (00:59→18:00)
[2016-09-12] MEDS: SODIUM CHLOR 0.9% 1000 ML INJ 1,000 ML IV SCH ×4 (01:30→17:37)
[2016-09-12] MEDS: VANCOMYCIN 500 MG VIAL (FOR ORAL USE ONLY) PO SCH ×4 (04:00→21:33)
[2016-09-12] MEDS: PIPERACIL-TAZO 3.375 GM PREMIX 50 ML IV SCH ×4 (04:00→22:20)
[2016-09-12 05:54] LABS: AUTOMATED NEUTROPHIL # 6.6 TH/MM3 (1.8-7.7); BASOPHIL % 0.1 % (0.0-2.0); HEMATOCRIT 21.1 % (35.0-46.0); LYMPH % 6.4 % (9.0-44.0); LYMPHOCYTE # 0.5 TH/MM3 (1.0-4.8); MEAN CELL VOLUME 84.6 FL (80.0-100.0); MEAN CORPUSCULAR HEMOGLOBIN 27.7 PG (27.0-34.0); MEAN CORPUSCULAR HGB CONC 32.8 % (32.0-36.0); MONO % 5.2 % (0.0-8.0); NEUT % 88.3 % (16.0-70.0); PLATELET COUNT 121 TH/MM3 (150-450); RED BLOOD COUNT 2.49 MIL/MM3 (4.00-5.30); RED CELL DISTRIBUTION WIDTH 16.9 % (11.6-17.2); WHITE BLOOD COUNT 7.5 TH/MM3 (4.0-11.0)
[2016-09-12 05:59] LABS: HEMO FLAGS AUTO DIFF
[2016-09-12] MEDS: FREE WATER G-TUBE SCH ×3 (06:00→21:33)
[2016-09-12 06:15] LABS: BICARBONATE 24.1 MEQ/L (21.0-32.0); POTASSIUM 3.8 MEQ/L (3.5-5.1)
[2016-09-12] MEDS ORDERED: SODIUM CHLOR 0.9% 250 ML INJ 250 ML IV ONE (06:15)
[2016-09-12] MEDS: PETROLATUM 49%/ZINC OXIDE 15% 4 OUNCE TUBE TOPICAL SCH (09:00)
[2016-09-12] MEDS: PANTOPRAZOLE SOD 40 MG DELAYED RELEASE TAB PO SCH (09:00)
[2016-09-12] MEDS: MULTIVITAMIN TAB PO SCH (09:00)
[2016-09-12] MEDS: CALAMINE/PRAMOXINE LOTION 180 ML BTL TOPICAL SCH ×2 (09:00→21:00)
[2016-09-12] MEDS: SODIUM CHLORIDE 0.9% FLUSH 5 ML FLUSH IV FLUSH SCH ×2 (09:00→22:21)
[2016-09-12] MEDS: BACITRACIN TOP OINT 15 GM TUBE TOP SCH ×2 (09:00→21:00)
[2016-09-12] MEDS: POTASSIUM CL 40 MEQ/30 ML LIQ UDC GT SCH (09:00)
[2016-09-12] MEDS: NYSTATIN SUSP 500,000 U/5 ML CUP SWISH-SWAL SCH ×2 (09:00→13:00)
[2016-09-12] MEDS: BETAMETHASONE DIPROPIONATE 0.05% CREAM 15 GM TOPICAL SCH ×2 (09:00→21:00)
[2016-09-12 09:26] LABS: BANDS 32 % (0-6); NEUTROPHIL # MANUAL DIFF 6.7 TH/MM3 (1.8-7.7); POLYS (SEG NEUTROPHILS) 57 % (16-70); WBC DIFF SAMPLE 100
[2016-09-12 09:27] LABS: PLATELET ESTIMATE SMEAR LOW (NORMAL); PLATELET MORPHOLOGY NORMAL (NORMAL); SCAN/DIFF FINAL DIFF MANUAL
[2016-09-12] MEDS ORDERED: PHARMACY ORDERED LAB XX ONE (10:45)
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
[2016-09-12] MEDS: ENOXAPARIN SODIUM 40 MG/0.4 ML SYRINGE SQ SCH (17:38)
[2016-09-12 17:49] LABS: HEMATOCRIT 27.4 % (35.0-46.0); REVIEW FLAG FINAL
--- NOTE | 2016-09-12 22:59 | EKG ---
Date Performed: 09/11/2016 Time Performed: 13:19:29 PTAGE: 61 years EKG: Sinus rhythm NORMAL ECG PREVIOUS TRACING : 09/10/2016 15.24 DOCTOR: Arelis Ferro Interpretating Date/Time 09/12/2016 22:51:21
[2016-09-13] VITALS (10 sets, daily range): BP systolic 157–194; BP diastolic 80–107; PULSE 86–116; RESP 18–22; TEMP 96–99.1; O2SAT 91–100
[2016-09-13] MEDS: RESP: ALBUTEROL 2.5 MG/IPRATROPIUM 0.5 MG NEB (SCH) NEB ×4 (00:26→23:14)
[2016-09-13] MEDS: POTASSIUM PHOSPHATE/SODIUM PHOSPHATE 250 MG TAB PO SCH ×4 (01:06→17:40)
[2016-09-13] MEDS: VANCOMYCIN 500 MG VIAL (FOR ORAL USE ONLY) PO SCH ×4 (03:15→22:44)
[2016-09-13] MEDS: SODIUM CHLOR 0.9% 1000 ML INJ 1,000 ML IV SCH ×3 (04:30→19:18)
[2016-09-13] MEDS: PIPERACIL-TAZO 3.375 GM PREMIX 50 ML IV SCH ×4 (05:36→22:44)
[2016-09-13] MEDS: FREE WATER G-TUBE SCH ×3 (05:43→22:00)
[2016-09-13] MEDS ORDERED: METOPROLOL TARTRATE 50 MG TAB G-TUBE ONE (07:45)
[2016-09-13] MEDS: MULTIVITAMIN TAB PO SCH (08:42)
[2016-09-13] MEDS: LISINOPRIL 20 MG TAB PO SCH ×2 (08:42→22:44)
[2016-09-13] MEDS: POTASSIUM CL 40 MEQ/30 ML LIQ UDC GT SCH (08:42)
[2016-09-13] MEDS: PANTOPRAZOLE SOD 40 MG DELAYED RELEASE TAB PO SCH (08:42)
[2016-09-13] MEDS: SODIUM CHLORIDE 0.9% FLUSH 5 ML FLUSH IV FLUSH SCH ×2 (08:43→22:45)
[2016-09-13] MEDS: BETAMETHASONE DIPROPIONATE 0.05% CREAM 15 GM TOPICAL SCH ×2 (08:44→22:46)
[2016-09-13] MEDS: EUCERIN CREAM 120 GM JAR TOPICAL PRN (08:44)
[2016-09-13] MEDS: BACITRACIN TOP OINT 15 GM TUBE TOP SCH ×2 (08:44→22:45)
[2016-09-13] MEDS: CALAMINE/PRAMOXINE LOTION 180 ML BTL TOPICAL SCH ×2 (08:44→22:47)
[2016-09-13] MEDS: PETROLATUM 49%/ZINC OXIDE 15% 4 OUNCE TUBE TOPICAL SCH (08:45)
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
[2016-09-13] MEDS: METOPROLOL TARTRATE 50 MG TAB GT SCH (15:09)
[2016-09-13] MEDS: ENOXAPARIN SODIUM 40 MG/0.4 ML SYRINGE SQ SCH (15:09)
[2016-09-14] VITALS (8 sets, daily range): BP systolic 136–176; BP diastolic 82–94; PULSE 86–120; RESP 19–24; TEMP 98.1–99.2; O2SAT 93–95
[2016-09-14] MEDS: SODIUM CHLOR 0.9% 1000 ML INJ 1,000 ML IV SCH ×3 (01:05→15:50)
[2016-09-14] MEDS: cloNIDine HCL 0.1 MG TAB PO PRN (01:05)
[2016-09-14] MEDS: METOPROLOL TARTRATE 50 MG TAB GT SCH ×4 (01:05→22:34)
[2016-09-14] MEDS: diphenhydrAMINE HCL 25 MG CAP PO PRN (01:06)
[2016-09-14] MEDS: ACETAMINOPHEN 325 MG TAB PO PRN (01:06)
[2016-09-14] MEDS: FREE WATER G-TUBE SCH ×3 (05:20→22:00)
[2016-09-14] MEDS: VANCOMYCIN 500 MG VIAL (FOR ORAL USE ONLY) PO SCH ×4 (05:20→21:15)
[2016-09-14] MEDS: PIPERACIL-TAZO 3.375 GM PREMIX 50 ML IV SCH ×4 (05:20→22:24)
[2016-09-14] MEDS: POTASSIUM PHOSPHATE/SODIUM PHOSPHATE 250 MG TAB PO SCH ×5 (05:20→22:34)
[2016-09-14] MEDS: PANTOPRAZOLE SOD 40 MG DELAYED RELEASE TAB PO SCH (08:23)
[2016-09-14] MEDS: POTASSIUM CL 40 MEQ/30 ML LIQ UDC GT SCH (08:23)
[2016-09-14] MEDS: LISINOPRIL 20 MG TAB PO SCH ×2 (08:24→21:47)
[2016-09-14] MEDS: MULTIVITAMIN TAB PO SCH (08:24)
[2016-09-14] MEDS: CALAMINE/PRAMOXINE LOTION 180 ML BTL TOPICAL SCH ×2 (08:25→22:25)
[2016-09-14] MEDS: BACITRACIN TOP OINT 15 GM TUBE TOP SCH ×2 (08:25→22:25)
[2016-09-14] MEDS: SODIUM CHLORIDE 0.9% FLUSH 5 ML FLUSH IV FLUSH SCH ×2 (08:26→22:35)
[2016-09-14] MEDS: BETAMETHASONE DIPROPIONATE 0.05% CREAM 15 GM TOPICAL SCH ×2 (08:26→22:26)
[2016-09-14] MEDS: PETROLATUM 49%/ZINC OXIDE 15% 4 OUNCE TUBE TOPICAL SCH (08:26)
[2016-09-14] MEDS: RESP: ALBUTEROL 2.5 MG/IPRATROPIUM 0.5 MG NEB (SCH) NEB ×2 (08:52→16:11)
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
[2016-09-14] MEDS: ENOXAPARIN SODIUM 40 MG/0.4 ML SYRINGE SQ SCH (15:48)
[2016-09-15] VITALS: BP 148/88; PULSE 108; RESP 24; TEMP 98.7; O2SAT 92
[2016-09-15] MEDS: RESP: ALBUTEROL 2.5 MG/IPRATROPIUM 0.5 MG NEB (SCH) NEB ×3 (00:47→16:05)
[2016-09-15] MEDS: VANCOMYCIN 500 MG VIAL (FOR ORAL USE ONLY) PO SCH ×4 (03:15→22:14)
[2016-09-15] MEDS: PIPERACIL-TAZO 3.375 GM PREMIX 50 ML IV SCH ×4 (04:00→22:13)
[2016-09-15] MEDS: POTASSIUM PHOSPHATE/SODIUM PHOSPHATE 250 MG TAB PO SCH ×3 (05:59→18:28)
[2016-09-15] MEDS: METOPROLOL TARTRATE 50 MG TAB GT SCH ×2 (05:59→14:55)
[2016-09-15] MEDS: FREE WATER G-TUBE SCH ×3 (06:00→22:00)
[2016-09-15 08:00] VITALS: BP 172/99; PULSE 98; RESP 20; TEMP 99.1; O2SAT 93
[2016-09-15] MEDS: CALAMINE/PRAMOXINE LOTION 180 ML BTL TOPICAL SCH ×2 (09:00→22:16)
[2016-09-15] MEDS: PETROLATUM 49%/ZINC OXIDE 15% 4 OUNCE TUBE TOPICAL SCH (09:00)
[2016-09-15] MEDS: BACITRACIN TOP OINT 15 GM TUBE TOP SCH ×2 (09:00→22:15)
[2016-09-15] MEDS: BETAMETHASONE DIPROPIONATE 0.05% CREAM 15 GM TOPICAL SCH ×2 (09:00→22:16)
[2016-09-15] MEDS: SODIUM CHLORIDE 0.9% FLUSH 5 ML FLUSH IV FLUSH SCH ×2 (09:00→22:15)
[2016-09-15] MEDS: MULTIVITAMIN TAB PO SCH (10:00)
[2016-09-15] MEDS: POTASSIUM CL 40 MEQ/30 ML LIQ UDC GT SCH (10:00)
[2016-09-15] MEDS: LISINOPRIL 20 MG TAB PO SCH ×2 (10:00→22:15)
[2016-09-15] MEDS: PANTOPRAZOLE SOD 40 MG DELAYED RELEASE TAB PO SCH (10:00)
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
[2016-09-15] MEDS: SODIUM CHLOR 0.9% 1000 ML INJ 1,000 ML IV SCH ×2 (11:18→12:00)
[2016-09-15 12:00] VITALS: BP 164/95; PULSE 94; RESP 24; TEMP 98.5; O2SAT 94
[2016-09-15] MEDS: ENOXAPARIN SODIUM 40 MG/0.4 ML SYRINGE SQ SCH (14:55)
[2016-09-15 16:00] VITALS: BP 159/93; PULSE 86; RESP 23; TEMP 98.2; O2SAT 97
--- NOTE | 2016-09-15 16:32 | HHI.PR ---
Subjective Subjective Notes Resting in bed Non communicative Objective Vitals/I&O Vital Signs Date Time Temp Pulse Resp B/P Pulse Ox O2 Delivery O2 Flow Rate FiO2 09/15/16 12:00 98.5 94 24 164/95 94 09/14/16 08:54 21 09/12/16 00:54 Nasal Cannula 09/11/16 15:29 2.00 Labs Laboratory Tests Test 09/15/16 08:28 Creatinine 0.53 Estimat Glomerular Filtration 118 Rate Date/Time Procedure Status Source Growth 09/11/16 12:05 Stool Occult Blood (AFTAB) - Final Complete Stool Stool HEMOCCULT NEGATIVE Cardiovascular: Regular Lungs: Clear Abdomen: Other (colostomy in place with minimal drainage on packing just medial to colostomy; no stool in open area; applicance on with no stool leaking ) Narrative Exam generalized edema A/P Problem List: (1) Status post colostomy (2) Infected decubitus ulcer (3) History of CVA (cerebrovascular accident) (4) COPD (chronic obstructive pulmonary disease) (5) Neurocognitive disorder (6) Essential hypertension Assessment and Plan 60 year old female with large sacral wound; s/p colostomy placement and colostomy revision -Colostomy in good working function with stool; appliance in place without stool leaking -Continue routine nursing colostomy care -Continue packing open area medial to colostomy -Tolerating TF -GS will follow peripherally Attending Note - Dr. Faulkner Colostomy intact with no wound disruption The exam, history, and the medical decision-making described in the above note were completed with the assistance of the mid-level provider. I reviewed and agree with the findings presented. I attest that I had a [id number] encounter with the patient on the same day, and personally performed and documented my assessment and findings in the medical record. Problem Qualifiers (1) Infected decubitus ulcer: Qualified Code: L89.95 - Infected decubitus ulcer, unstageable (2) COPD (chronic obstructive pulmonary disease): Ruma Orta Sep 15, 2016 16:32 Zechariah Faulkner MD Oct 07, 2016 23:32
[2016-09-15 19:40] VITALS: O2SAT 97
[2016-09-15 21:45] VITALS: BP 165/95; PULSE 99; RESP 18; TEMP 98; O2SAT 97
[2016-09-16] MEDS: SODIUM CHLOR 0.9% 1000 ML INJ 1,000 ML IV SCH ×4 (00:10→21:37)
[2016-09-16] MEDS: METOPROLOL TARTRATE 50 MG TAB GT SCH ×3 (00:21→23:00)
[2016-09-16] MEDS: POTASSIUM PHOSPHATE/SODIUM PHOSPHATE 250 MG TAB PO SCH ×4 (00:22→18:44)
[2016-09-16 00:30] VITALS: BP 159/80; PULSE 95; RESP 19; TEMP 97.8; O2SAT 98
[2016-09-16] MEDS: RESP: ALBUTEROL 2.5 MG/IPRATROPIUM 0.5 MG NEB (SCH) NEB ×3 (01:23→15:31)
[2016-09-16] MEDS: VANCOMYCIN 500 MG VIAL (FOR ORAL USE ONLY) PO SCH ×4 (03:25→21:39)
[2016-09-16] MEDS: PIPERACIL-TAZO 3.375 GM PREMIX 50 ML IV SCH ×3 (03:25→16:36)
[2016-09-16 04:45] VITALS: BP 157/89; PULSE 96; RESP 20; TEMP 98.1; O2SAT 98
[2016-09-16] MEDS: FREE WATER G-TUBE SCH ×3 (06:00→21:44)
[2016-09-16 08:00] VITALS: BP 174/95; PULSE 106; RESP 24; TEMP 99.4; O2SAT 96; O2SAT 97
[2016-09-16] MEDS: SODIUM CHLORIDE 0.9% FLUSH 5 ML FLUSH IV FLUSH SCH ×2 (09:00→21:40)
[2016-09-16] MEDS: PANTOPRAZOLE SOD 40 MG DELAYED RELEASE TAB PO SCH (10:00)
[2016-09-16] MEDS: MULTIVITAMIN TAB PO SCH (10:01)
[2016-09-16] MEDS: LISINOPRIL 20 MG TAB PO SCH ×2 (10:01→21:40)
[2016-09-16] MEDS: POTASSIUM CL 40 MEQ/30 ML LIQ UDC GT SCH (10:01)
[2016-09-16] MEDS: PETROLATUM 49%/ZINC OXIDE 15% 4 OUNCE TUBE TOPICAL SCH (10:02)
[2016-09-16] MEDS: BETAMETHASONE DIPROPIONATE 0.05% CREAM 15 GM TOPICAL SCH ×2 (10:02→21:45)
[2016-09-16] MEDS: CALAMINE/PRAMOXINE LOTION 180 ML BTL TOPICAL SCH ×2 (10:02→21:44)
[2016-09-16] MEDS: BACITRACIN TOP OINT 15 GM TUBE TOP SCH ×2 (10:02→21:44)
[2016-09-16 12:00] VITALS: BP 152/82; PULSE 115; RESP 23; TEMP 99; O2SAT 96
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
[2016-09-16] MEDS: ENOXAPARIN SODIUM 40 MG/0.4 ML SYRINGE SQ SCH (14:37)
[2016-09-16 16:00] VITALS: BP 165/96; PULSE 109; RESP 25; TEMP 98.2; O2SAT 95
--- NOTE | 2016-09-16 16:55 | HHI.GIFU ---
Subjective Remarks Reconsulted for clogged g tube, unable to unclog with warm water/ronel felicita. ( LizamaBrooklyn Trevizofara YIN) Objective Vitals I&O Vital Signs Date Time Temp Pulse Resp B/P Pulse Ox O2 Delivery O2 Flow Rate FiO2 09/16/16 16:00 98.2 109 25 165/96 95 09/16/16 12:00 99.0 115 23 152/82 96 09/16/16 08:00 97 Nasal Cannula 2.00 09/16/16 08:00 99.4 106 24 174/95 96 09/16/16 04:45 98.1 96 20 157/89 98 09/16/16 00:30 97.8 95 19 159/80 98 09/15/16 21:45 98.0 99 18 165/95 97 09/15/16 19:40 97 Nasal Cannula 2.00 I/O 09/15/16 09/15/16 09/15/16 09/16/16 09/16/16 09/16/16 07:00 15:00 23:00 07:00 15:00 23:00 Intake Total 240 ml 500 ml 100 ml Output Total 850 ml 1350 ml 800 ml 1300 ml 1550 ml Balance -850 ml -1110 ml -300 ml -1200 ml -1550 ml Intake Oral 240 ml 500 ml 100 ml Output Urine Total 850 ml 950 ml 500 ml 700 ml 1100 ml Stool Total 400 ml 300 ml 600 ml 450 ml Imaging Last Impressions Chest X-Ray 09/10/16 0000 Signed Impressions: Service Date/Time: Saturday, September 10, 2016 09:17 - CONCLUSION: Significantly improved exam. No current evidence of pleural effusion or airspace consolidation. Ann Marie Tilley MD Abdomen/Pelvis CT 08/14/16 0000 Signed Impressions: Service Date/Time: July 15:44 - CONCLUSION: 1. There is no evidence for an intraabdominal process as the cause of sepsis. 2. There is mild prominence to both collecting systems, nonspecific. Vinay Avalos MD FACR Lower Extremity Ultrasound 06/01/16 0000 Signed Impressions: Service Date/Time: Wednesday, June 01, 2016 02:44 - CONCLUSION: No evidence of lower extremity DVT on the right or left. Rony Espinoza MD Head CT 05/31/16 0000 Signed Impressions: Service Date/Time: Tuesday, May 31, 2016 11:51 - CONCLUSION: 1. 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 2. Negative for an acute process. Vinay Avalos MD FACR Physical Exam HEENT: Normocephalic; atraumatic; no jaundice. CHEST: Resp. even/unlabored CARDIAC: RRR ABDOMEN: Soft, nondistended, nontender; no hepatosplenomegaly; PEG tube site without redness, swelling, or drainage colostomy EXTREMITIES: Generalized edema. SKIN: Dry flaky skin VENIPUNCTURIST: Nonverbal (Brooklyn Lizama) Assessment and Plan Plan ASSESSMENT: - Malfunctioning PEG. Reconsulted for clogged peg tube, unable to unclog with warm water/[place]. Pt had original EGD with peg tube placement (07/07/16). Replaced without difficulty with #18 replacement tube at bedside. Tolerated well. Gastric secretions immediately in return. Plan: - KUB with gastrografin to confirm placement - Once placement confirmed, okay to use - GI will sign off, please reconsult as needed - Patient seen and examined by Dr. Milner and myself and this note is written on her behalf. (Brooklyn Lizama) Physician Comments seen, examined agree with above (Giovana Milner MD) Brooklyn Lizama Sep 16, 2016 16:55 Giovana Milner MD Sep 16, 2016 18:52
--- NOTE | 2016-09-16 17:33 | RADRPT ---
EXAM DATE/TIME: 09/16/2016 16:55 [facility] COMPARISON: No previous studies available for comparison. INDICATIONS : G Tube placement. MEDICAL HISTORY : None. SURGICAL HISTORY : Colostomy. ENCOUNTER: Initial ACUITY: 1 day PAIN SCORE: Non-responsive. LOCATION: Left upper quadrant FINDINGS: Supine view of the abdomen was performed. The abdominal bowel gas pattern is normal. No abnormal ma sses, calcifications, or organomegaly is seen. The osseous structures are unremarkable. Injection of the G-tube reveals this to be in place in the lumen of the body the stomach without extravasation. CONCLUSION: G-tube in place in the body the stomach properly positioned David Rivera MD on September 16, 2016 at 17:31 Board Certified Radiologist. This report was verified electronically.
[2016-09-16] MEDS ORDERED: DIATRIZOATE MEGLUM/DIATRIZOATE SOD 120 ML BTL (for RAD DIAG) G-TUBE ONE (17:51)
[2016-09-16] MEDS: LACTOBACILLUS ACIDOPHILUS TAB PO SCH (18:44)
--- NOTE | 2016-09-16 20:09 | HHI.IDPN ---
Subjective Subjective Remarks ID X cover for . Reconsulted for recurrent Cdiff. delayed entry patient seen at ~ 6 pm. is a 60 y/o CF transferred to [facility] after [facility] was called due to hypotension and respiratory distress. She has a PMH of cerebral aneurysm repair , seizures, HTN, Hep C, tobacco abuse and is aphasic at baseline who originally presented to [facility] ED 05/31/16 with failure to thrive. She was found to have severe sepsis had decubitus ulcers on her sacrum, buttocks, heels. She underwent laparoscopic diverting colostomy 07/15/16. On 08/13 she underwent colostomy revision per Dr. Faulkner due to peristomal hernia. Patient remained in ICU was on ventilator. Had Proteus Mirabilis UTI and bacteremia during this hospitalization. She was also treated for Cdiff positive diarrhea and followed by ID . She now appears to have recurrent large volume output through her stoma, positive blood culture from 09/10/2016. ID has been consulted for evaluation and Mment of bacteremia and Cdiff. Overnight events reviewed. d/w patients spouse: she has had total of 3 surgeries for the stoma he is unsure why but it appears that these were stomal herniation. I explained to him but he still was dissatisfied. No fevers No rash Diarrhea large volume liquid through stoma. Was on Zosyn since 09/10/16 for Proteus bacteremia and UTI. Zosyn was stopped today. PEG tube malfunction was changed today Antibiotics PO vanco Zosyn IV DCed today. Lines Line sites with no e./o infection Past Medical History Reviewed Allergies: Coded Allergies: MRI PRECAUTION (Verified Adverse Reaction, Severe, ANEURYSM CLIP PER DR. [id number]-09/08/09, 05/31/16) *MDRO Multi-Drug Resistant Organism (Verified Adverse Reaction, Unknown, MRSA, 08/18/16) MRSA (sputum) - 10/2004 & 11/2004 ESBL Klebsiella Pneumoniae ([facility] wash-08/14/16) Objective . Vital Signs Date Time Temp Pulse Resp B/P Pulse Ox O2 Delivery O2 Flow Rate FiO2 09/16/16 16:00 98.2 109 25 165/96 95 09/16/16 12:00 99.0 115 23 152/82 96 09/16/16 08:00 97 Nasal Cannula 2.00 09/16/16 08:00 99.4 106 24 174/95 96 09/16/16 04:45 98.1 96 20 157/89 98 09/16/16 00:30 97.8 95 19 159/80 98 09/15/16 21:45 98.0 99 18 165/95 97 09/15/16 09/15/16 09/16/16 15:00 23:00 07:00 Intake Total 240 ml 500 ml 100 ml Output Total 1350 ml 800 ml 1300 ml Balance -1110 ml -300 ml -1200 ml Intake Oral 240 ml 500 ml 100 ml Output Urine Total 950 ml 500 ml 700 ml Stool Total 400 ml 300 ml 600 ml . Laboratory Tests Test 09/15/16 08:28 Creatinine 0.53 MG/DL Estimat Glomerular Filtration 118 ML/MIN Rate Imaging Last Impressions Chest X-Ray 08/18/16 0000 Signed Impressions: Service Date/Time: Thursday, August 18, 2016 05:18 - CONCLUSION: Interval increase in opacity in both lung bases as well as apparent bilateral effusions. The findings could indicate congestive heart failure. Zechariah Sutton MD Abdomen/Pelvis CT 08/14/16 0000 Signed Impressions: Service Date/Time: July 15:44 - CONCLUSION: 1. There is no evidence for an intraabdominal process as the cause of sepsis. 2. There is mild prominence to both collecting systems, nonspecific. Vinay Avalos MD FACR Lower Extremity Ultrasound 06/01/16 0000 Signed Impressions: Service Date/Time: Wednesday, June 01, 2016 02:44 - CONCLUSION: No evidence of lower extremity DVT on the right or left. Rony Espinoza MD Head CT 05/31/16 0000 Signed Impressions: Service Date/Time: Tuesday, May 31, 2016 11:51 - CONCLUSION: 1. 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 2. Negative for an acute process. Vinay Avalos MD FACR Physical Exam CONSTITUTIONAL/GENERAL: Awake, and responding, comfortable SKIN: No jaundice, cool and dry. No rash. Skin dry with excoriations EYES: Pupils equal and round and reactive. No scleral icterus. No injection or drainage. ENT: .Oral mucosae moist without visible erythema, exudates, masses, or lesions. CARDIOVASCULAR: HS audible. RESPIRATORY/CHEST: Decreased BS at bases GASTROINTESTINAL: Abdomen soft, moderately distended, not tender. Colostomy with liquid stool. Incision dry and clean GENITOURINARY: Without palpable bladder distension. Duke catheter in place. MUSCULOSKELETAL: Extremities without clubbing, cyanosis, or edema. . No mottling or clubbing. LYMPHATICS: No palpable cervical or supraclavicular adenopathy. NEUROLOGICAL: awake alert, responding, makes eye contact speech clear Assessment & Plan Remarks Proteus bacteremia Proteus UTI. PNA, growing Proteus, ESBL Kleb and MSSA treated UTI E.coli, Proteus. C.diff hypervirulent 027 strain Infected decubs, S/P diverting colostomy, sp revision of colostomy PLAN: Repeat blood cultures x 2 today Start Cefepime IV (for proteus bacteremia) Start Oral Flagyl for Cdiff Continue oral Vanco for Cdiff Follow cultures Follow clinically. kristelw RN D.w Patients and psychologist private practice. Palliative care consult to determine goals of therapy plus help with effective communication. Spouse appeared very disgruntled about procedures done so far and care provided. I explained all the infection related issues to him and he was satisfied with all my answers to his questions. He was thankful of care provided. He would like communication about all medical issues. He is unable to come during normal hours as he works between 7 am to almost 5 pm. He is available by phone, for scheduled meetings and on weekends. Time spent in excess of 40 mins. Critical thinking and decision making. kristelw patients spouse, RN and discharge planner. Jennifer Rascon MD Sep 16, 2016 20:09 Jennifer Rascon MD Sep 16, 2016 20:09
[2016-09-16 20:15] VITALS: BP 167/106; PULSE 105; RESP 18; TEMP 98.2; O2SAT 98
[2016-09-16] MEDS ORDERED: CEFEPIME INJ 2,000 MG in SODIUM CHLORIDE 0.9% INJ 100 ML IV SCH (21:00)
[2016-09-16] MEDS: metroNIDAZOLE 500 MG TAB PO SCH (21:39)
[2016-09-16] MEDS: CEFEPIME INJ 2,000 MG in SODIUM CHLORIDE 0.9% INJ 100 ML IV SCH (21:41)
[2016-09-17] VITALS (9 sets, daily range): BP systolic 137–187; BP diastolic 82–101; PULSE 82–113; RESP 17–22; TEMP 96.4–99.2; O2SAT 93–100
[2016-09-17] MEDS: RESP: ALBUTEROL 2.5 MG/IPRATROPIUM 0.5 MG NEB (SCH) NEB ×3 (00:22→16:24)
[2016-09-17] MEDS: VANCOMYCIN 500 MG VIAL (FOR ORAL USE ONLY) PO SCH ×4 (03:15→20:41)
[2016-09-17] MEDS: SODIUM CHLOR 0.9% 1000 ML INJ 1,000 ML IV SCH ×5 (05:30→23:18)
[2016-09-17] MEDS: FREE WATER G-TUBE SCH ×3 (05:49→22:00)
[2016-09-17] MEDS: ONDANSETRON HCL 4 MG/2 ML VIAL IV PRN (05:49)
[2016-09-17 05:58] LABS: BACTERIA, URINE RARE /hpf; BLOOD, URINE SMALL (NEG); GLUCOSE,URINE TRACE mg/dL (NEG); HYALINE CAST, URINE 1 /lpf (RARE); KETONE, URINE NEG (NEG); MUCUS URINE FEW /lpf (OCC); NITRITE,URINE NEG (NEG); PH, URINE 5.5 (5.0-8.5); SQUAMOUS EPITHELIAL CELL URINE <1 /hpf (0-5); TRANSITIONAL EPI CELLS, URINE <1 /hpf; URINE COLOR YELLOW (YELLW/STRAW)
[2016-09-17 06:00] LABS: COMMENT (UR) CULT NOT INDICATED; CULTURE IF INDICATED CULT NOT INDICATED
[2016-09-17] MEDS: POTASSIUM PHOSPHATE/SODIUM PHOSPHATE 250 MG TAB PO SCH ×4 (06:00→17:27)
[2016-09-17] MEDS: metroNIDAZOLE 500 MG TAB PO SCH ×3 (06:00→20:41)
[2016-09-17] MEDS: METOPROLOL TARTRATE 50 MG TAB GT SCH ×2 (06:41→15:15)
[2016-09-17] MEDS: CEFEPIME INJ 2,000 MG in SODIUM CHLORIDE 0.9% INJ 100 ML IV SCH ×2 (10:08→20:54)
[2016-09-17] MEDS: SODIUM CHLORIDE 0.9% FLUSH 5 ML FLUSH IV FLUSH SCH ×2 (10:10→20:41)
[2016-09-17] MEDS: PANTOPRAZOLE SOD 40 MG DELAYED RELEASE TAB PO SCH (10:15)
[2016-09-17] MEDS: LISINOPRIL 20 MG TAB PO SCH ×2 (10:15→20:54)
[2016-09-17] MEDS: LACTOBACILLUS ACIDOPHILUS TAB PO SCH ×3 (10:15→17:27)
[2016-09-17] MEDS: POTASSIUM CL 40 MEQ/30 ML LIQ UDC GT SCH (10:15)
[2016-09-17] MEDS: MULTIVITAMIN TAB PO SCH (10:15)
[2016-09-17] MEDS: CALAMINE/PRAMOXINE LOTION 180 ML BTL TOPICAL SCH ×2 (10:16→20:43)
[2016-09-17] MEDS: BETAMETHASONE DIPROPIONATE 0.05% CREAM 15 GM TOPICAL SCH ×2 (10:16→20:43)
[2016-09-17] MEDS: PETROLATUM 49%/ZINC OXIDE 15% 4 OUNCE TUBE TOPICAL SCH (10:16)
[2016-09-17] MEDS: BACITRACIN TOP OINT 15 GM TUBE TOP SCH ×2 (10:16→20:43)
[2016-09-17] MEDS: ENOXAPARIN SODIUM 40 MG/0.4 ML SYRINGE SQ SCH (13:09)
[2016-09-17] MEDS: ENALAPRILAT 1.25 MG/ML VIAL IV PRN (13:21)
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
--- NOTE | 2016-09-17 15:19 | HHI.IDPN ---
Subjective Subjective Remarks ID X cover for . Reconsulted for recurrent Cdiff. delayed entry patient seen at ~ 6 pm. is a 60 y/o CF transferred to [facility] after [facility] was called due to hypotension and respiratory distress. She has a PMH of cerebral aneurysm repair , seizures, HTN, Hep C, tobacco abuse and is aphasic at baseline who [place] [facility] [place] with failure to thrive. She was found to have severe sepsis had decubitus ulcers on her sacrum, buttocks, heels. She underwent laparoscopic diverting colostomy 07/15/16. On 08/13 she underwent colostomy revision per Dr. Fualkner due to peristomal hernia. Patient remained in ICU was on ventilator. Had Proteus Mirabilis UTI and bacteremia during this hospitalization. She was also treated for Cdiff positive diarrhea and followed by ID . She now appears to have recurrent large volume output through her stoma, positive blood culture from 09/10/2016. ID has been consulted for evaluation and Mment of bacteremia and Cdiff. Overnight events reviewed. No fevers No rash Diarrhea large volume liquid through stoma. Was on Zosyn since 09/10/16 for Proteus bacteremia and UTI. Zosyn was stopped today. PEG tube malfunction was changed today Antibiotics PO vanco Cefepime IV Flagyl oral. Lines Line sites with no e./o infection Past Medical History Reviewed Allergies: Coded Allergies: MRI PRECAUTION (Verified Adverse Reaction, Severe, ANEURYSM CLIP PER DR. [id number]-09/08/09, 05/31/16) *MDRO Multi-Drug Resistant Organism (Verified Adverse Reaction, Unknown, MRSA, 08/18/16) MRSA (sputum) - 10/2004 & 11/2004 ESBL Klebsiella Pneumoniae ([facility] wash-08/14/16) Objective . Vital Signs Date Time Temp Pulse Resp B/P Pulse Ox O2 Delivery O2 Flow Rate FiO2 09/17/16 13:14 96.8 93 20 187/101 100 09/17/16 08:54 98 Nasal Cannula 2.00 09/17/16 08:47 98.7 82 20 167/82 100 09/17/16 05:00 98.3 94 17 161/96 98 09/17/16 00:35 99.2 113 22 143/84 98 09/17/16 00:23 93 Nasal Cannula 21 09/16/16 20:15 98.2 105 18 167/106 98 09/16/16 16:00 98.2 109 25 165/96 95 09/16/16 09/16/16 09/17/16 15:00 23:00 07:00 Intake Total 3431 ml Output Total 1550 ml 850 ml Balance -1550 ml 2581 ml IV Total 2151 ml Tube Feeding 880 ml Other 400 ml Output Urine Total 1100 ml 850 ml Stool Total 450 ml . Laboratory Tests Test 09/17/16 09:50 Creatinine 0.59 MG/DL Estimat Glomerular Filtration 104 ML/MIN Rate Microbiology Date/Time Procedure Status Source Growth 09/17/16 00:30 Aerobic Blood Culture Received Blood Peripheral Pending 09/17/16 00:30 Anaerobic Blood Culture Received Blood Peripheral Pending 09/17/16 00:40 Aerobic Blood Culture Received Blood Peripheral Pending 09/17/16 00:40 Anaerobic Blood Culture Received Blood Peripheral Pending Imaging Last Impressions Chest X-Ray 08/18/16 0000 Signed Impressions: Service Date/Time: Thursday, August 18, 2016 05:18 - CONCLUSION: Interval increase in opacity in both lung bases as well as apparent bilateral effusions. The findings could indicate congestive heart failure. Zechariah Sutton MD Abdomen/Pelvis CT 08/14/16 0000 Signed Impressions: Service Date/Time: July 15:44 - CONCLUSION: 1. There is no evidence for an intraabdominal process as the cause of sepsis. 2. There is mild prominence to both collecting systems, nonspecific. Vinay Avalos MD FACR Lower Extremity Ultrasound 06/01/16 0000 Signed Impressions: Service Date/Time: Wednesday, June 01, 2016 02:44 - CONCLUSION: No evidence of lower extremity DVT on the right or left. Rony Espinoza MD Head CT 05/31/16 0000 Signed Impressions: Service Date/Time: Tuesday, May 31, 2016 11:51 - CONCLUSION: 1. 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 2. Negative for an acute process. Vinay Avalos MD FACR Physical Exam CONSTITUTIONAL/GENERAL: Awake, and responding, comfortable SKIN: No jaundice, cool and dry. No rash. Skin dry with excoriations EYES: Pupils equal and round and reactive. No scleral icterus. No injection or drainage. ENT: .Oral mucosae moist without visible erythema, exudates, masses, or lesions. CARDIOVASCULAR: HS audible. RESPIRATORY/CHEST: Decreased BS at bases GASTROINTESTINAL: Abdomen soft, moderately distended, not tender. Colostomy with liquid stool. Incision dry and clean Port site with no e/o infection. GENITOURINARY: Without palpable bladder distension. Duke catheter in place. MUSCULOSKELETAL: Extremities without clubbing, cyanosis, or edema. . No mottling or clubbing. LYMPHATICS: No palpable cervical or supraclavicular adenopathy. NEUROLOGICAL: awake alert, responding, makes eye contact speech clear Assessment & Plan Remarks Persistent or recurrent Proteus bacteremia Proteus UTI/vs seeding. PNA, growing Proteus, ESBL Kleb and MSSA treated UTI E.coli, Proteus. C.diff hypervirulent 027 strain Infected decubs, S/P diverting colostomy, sp revision of colostomy PLAN: Repeat blood cultures x 2 today Blood culture from port. Ok to access port. Port has been present for last 2 years per records. Continue Cefepime IV (for proteus bacteremia) Continue Oral Flagyl for Cdiff Continue oral Vanco for Cdiff Follow cultures Follow clinically. d.w RN, dry charge process attendant: port in place has been present for 2 years. Not accessed since admission. Will get port and peripheral blood cultures. Will d.w patient spouse and General surgery if port can be removed as not being used and patient has recurrent or persistent bacteremia. d/w Time spent in excess of 40 mins. Critical thinking and decision making. d.w patients spouse, RN and dry charge process attendant. Jennifer Rascon MD Sep 17, 2016 15:19 patients spouse, RN and dry charge process attendant. Jennifer Rascon MD Sep 17, 2016 15:19
[2016-09-18] VITALS (8 sets, daily range): BP systolic 138–189; BP diastolic 70–103; PULSE 79–106; RESP 18–22; TEMP 97.6–99.5; O2SAT 90–98
[2016-09-18] MEDS: RESP: ALBUTEROL 2.5 MG/IPRATROPIUM 0.5 MG NEB (SCH) NEB ×3 (00:19→16:48)
[2016-09-18] MEDS: METOPROLOL TARTRATE 50 MG TAB GT SCH ×3 (01:06→15:54)
[2016-09-18] MEDS: POTASSIUM PHOSPHATE/SODIUM PHOSPHATE 250 MG TAB PO SCH ×4 (01:06→17:59)
[2016-09-18] MEDS: VANCOMYCIN 500 MG VIAL (FOR ORAL USE ONLY) PO SCH ×4 (03:42→22:29)
[2016-09-18] MEDS: SODIUM CHLOR 0.9% 1000 ML INJ 1,000 ML IV SCH ×3 (03:42→17:59)
[2016-09-18] MEDS: FREE WATER G-TUBE SCH ×3 (06:00→22:30)
[2016-09-18] MEDS: metroNIDAZOLE 500 MG TAB PO SCH ×3 (06:15→22:29)
[2016-09-18] MEDS: LISINOPRIL 20 MG TAB PO SCH ×2 (10:17→22:29)
[2016-09-18] MEDS: LACTOBACILLUS ACIDOPHILUS TAB PO SCH ×3 (10:17→17:59)
[2016-09-18] MEDS: MULTIVITAMIN TAB PO SCH (10:17)
[2016-09-18] MEDS: CEFEPIME INJ 2,000 MG in SODIUM CHLORIDE 0.9% INJ 100 ML IV SCH ×2 (10:17→22:30)
[2016-09-18] MEDS: POTASSIUM CL 40 MEQ/30 ML LIQ UDC GT SCH (10:18)
[2016-09-18] MEDS: PANTOPRAZOLE SOD 40 MG DELAYED RELEASE TAB PO SCH (10:18)
[2016-09-18] MEDS: SODIUM CHLORIDE 0.9% FLUSH 5 ML FLUSH IV FLUSH SCH ×2 (10:18→21:00)
[2016-09-18] MEDS: PETROLATUM 49%/ZINC OXIDE 15% 4 OUNCE TUBE TOPICAL SCH (10:19)
[2016-09-18] MEDS: CALAMINE/PRAMOXINE LOTION 180 ML BTL TOPICAL SCH ×2 (10:19→22:30)
[2016-09-18] MEDS: BETAMETHASONE DIPROPIONATE 0.05% CREAM 15 GM TOPICAL SCH (10:21)
[2016-09-18] MEDS: BACITRACIN TOP OINT 15 GM TUBE TOP SCH ×2 (10:21→21:00)
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
[2016-09-18] MEDS: ENALAPRILAT 1.25 MG/ML VIAL IV PRN (13:00)
[2016-09-18] MEDS: ENOXAPARIN SODIUM 40 MG/0.4 ML SYRINGE SQ SCH (13:00)
--- NOTE | 2016-09-18 18:50 | HHI.IDPN ---
Subjective Subjective Remarks ID X cover for . Reconsulted for recurrent Cdiff and Proteus bacteremia. delayed entry patient seen at ~ 6 pm. is a 60 y/o CF transferred to [facility] after Halicat was called due to hypotension and respiratory distress. She has a PMH of cerebral aneurysm repair , seizures, HTN, Hep C, tobacco abuse and is aphasic at baseline who originally presented to [facility] [place] [facility] 05/31/16 with failure to thrive. She was found to have severe sepsis had decubitus ulcers on her sacrum, buttocks, heels. She underwent laparoscopic diverting colostomy 07/15/16. On 08/13 she underwent colostomy revision per Dr. Faulkner due to peristomal hernia. Patient remained in ICU was on ventilator. Had Proteus Mirabilis UTI and bacteremia during this hospitalization. She was also treated for Cdiff positive diarrhea and followed by ID . She now appears to have recurrent large volume output through her stoma, positive blood culture from 09/10/2016. ID has been consulted for evaluation and Mment of bacteremia and Cdiff. Overnight events reviewed. No fevers No rash Diarrhea large volume liquid through stoma. Was on Zosyn since 09/10/16 for Proteus bacteremia and UTI. Zosyn was stopped today. PEG tube malfunction was changed today Antibiotics PO vanco Cefepime IV Flagyl oral. Lines Line sites with no e./o infection Past Medical History Reviewed Allergies: Coded Allergies: MRI PRECAUTION (Verified Adverse Reaction, Severe, ANEURYSM CLIP PER DR. [id number]-09/08/09, 05/31/16) *MDRO Multi-Drug Resistant Organism (Verified Adverse Reaction, Unknown, MRSA, 08/18/16) MRSA (sputum) - 10/2004 & 11/2004 ESBL Klebsiella Pneumoniae ([facility] wash-08/14/16) Objective . Vital Signs Date Time Temp Pulse Resp B/P Pulse Ox O2 Delivery O2 Flow Rate FiO2 09/18/16 17:11 99.5 103 18 178/103 97 09/18/16 12:00 97.6 106 20 176/90 97 09/18/16 09:20 90 21 09/18/16 08:00 98.1 101 22 189/102 97 09/18/16 04:00 98.0 104 18 185/98 98 09/18/16 00:22 94 Nasal Cannula 2.00 09/18/16 00:00 97.8 79 20 138/70 95 09/17/16 20:00 99.2 89 20 171/98 99 09/17/16 09/17/16 09/18/16 15:00 23:00 07:00 Intake Total 0 ml 4368 ml Output Total 5400 ml Balance 0 ml -1032 ml Intake Oral 0 ml IV Total 3320 ml Tube Feeding 648 ml Other 400 ml Output Urine Total 4000 ml Stool Total 1400 ml . Laboratory Tests Test 09/17/16 09:50 Creatinine 0.59 MG/DL Estimat Glomerular Filtration 104 ML/MIN Rate Microbiology Date/Time Procedure Status Source Growth 09/17/16 00:30 Aerobic Blood Culture - Preliminary Resulted Blood Peripheral NO GROWTH IN 1 DAY 09/17/16 00:30 Anaerobic Blood Culture - Preliminary Resulted Blood Peripheral NO GROWTH IN 1 DAY 09/17/16 00:40 Aerobic Blood Culture - Preliminary Resulted Blood Peripheral NO GROWTH IN 1 DAY 09/17/16 00:40 Anaerobic Blood Culture - Preliminary Resulted Blood Peripheral NO GROWTH IN 1 DAY 09/17/16 21:46 Aerobic Blood Culture - Preliminary Resulted Blood Peripheral NO GROWTH IN 1 DAY 09/17/16 21:46 Anaerobic Blood Culture - Preliminary Resulted Blood Peripheral NO GROWTH IN 1 DAY 09/18/16 07:06 Aerobic Blood Culture Received Blood Other Pending 09/18/16 07:06 Anaerobic Blood Culture Received Blood Other Pending Imaging Last Impressions Chest X-Ray 08/18/16 0000 Signed Impressions: Service Date/Time: Thursday, August 18, 2016 05:18 - CONCLUSION: Interval increase in opacity in both lung bases as well as apparent bilateral effusions. The findings could indicate congestive heart failure. Zechariah Sutton MD Abdomen/Pelvis CT 08/14/16 0000 Signed Impressions: Service Date/Time: July 15:44 - CONCLUSION: 1. There is no evidence for an intraabdominal process as the cause of sepsis. 2. There is mild prominence to both collecting systems, nonspecific. Vinay Avalos MD FACR Lower Extremity Ultrasound 06/01/16 0000 Signed Impressions: Service Date/Time: Wednesday, June 01, 2016 02:44 - CONCLUSION: No evidence of lower extremity DVT on the right or left. Rony Espinoza MD Head CT 05/31/16 0000 Signed Impressions: Service Date/Time: Tuesday, May 31, 2016 11:51 - CONCLUSION: 1. 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 2. Negative for an acute process. Vinay Avalos MD FACR Physical Exam CONSTITUTIONAL/GENERAL: Awake, and responding, comfortable SKIN: No jaundice, cool and dry. No rash. Skin dry with excoriations EYES: Pupils equal and round and reactive. No scleral icterus. No injection or drainage. ENT: .Oral mucosae moist without visible erythema, exudates, masses, or lesions. CARDIOVASCULAR: HS audible. RESPIRATORY/CHEST: Decreased BS at bases GASTROINTESTINAL: Abdomen soft, moderately distended, not tender. Colostomy with liquid stool. Incision dry and clean Port site with no e/o infection. GENITOURINARY: Without palpable bladder distension. Duke catheter in place. MUSCULOSKELETAL: Extremities without clubbing, cyanosis, or edema. . No mottling or clubbing. LYMPHATICS: No palpable cervical or supraclavicular adenopathy. NEUROLOGICAL: awake alert, responding, makes eye contact speech clear Assessment & Plan Remarks Persistent or recurrent Proteus bacteremia Proteus UTI/vs seeding. PNA, growing Proteus, ESBL Kleb and MSSA treated UTI E.coli, Proteus. C.diff hypervirulent 027 strain Infected decubs, S/P diverting colostomy, sp revision of colostomy PLAN: Repeat blood cultures x 2 today Blood culture from port. Ok to access port. Port has been present for last 2 years per records. Continue Cefepime IV (for proteus bacteremia) Continue Oral Flagyl for Cdiff Continue oral Vanco for Cdiff Port removal: not accessible, placed 10 years back, not accessed in many years, persistent bacteremia. Recommend General Surgery consult for port removal (may have fibrous adhesions). Follow cultures Follow clinically. d/w Jennifer Bynum MD Sep 18, 2016 18:50
--- NOTE | 2016-09-18 23:42 | RADRPT ---
EXAM DATE/TIME: 09/18/2016 22:58 [facility] COMPARISON: No previous studies available for comparison. INDICATIONS : Right arm swelling. MEDICAL HISTORY : Hypercholesterolemia. Rheumatoid arthritis. Emphysema. CVA. Seizures. Migraines. COPD. Asthma. HTN. H epatitis C. UTI. MRSA. Cdiff. SURGICAL HISTORY : section. Brain aneurysm repair. ENCOUNTER: Initial ACUITY: 1 day PAIN SCORE: 0/10 LOCATION: Right arm. FINDINGS: There is spontaneous flow documented in the brachial, basilic, cephalic, axillary, and subclavian vei ns. The vessels are compressible and augmentation response is documented. No filling defects are se en. The flow is phasic with respiration. Direction of flow in the jugular vein is caudal. CONCLUSION: Normal examination. Evan Navarro MD on September 18, 2016 at 23:41 Board Certified Radiologist. This report was verified electronically.
[2016-09-19] VITALS (9 sets, daily range): BP systolic 162–208; BP diastolic 79–97; PULSE 82–101; RESP 20–22; TEMP 96–100.2; O2SAT 92–98
[2016-09-19] MEDS: METOPROLOL TARTRATE 50 MG TAB GT SCH ×4 (00:34→23:46)
[2016-09-19] MEDS: POTASSIUM PHOSPHATE/SODIUM PHOSPHATE 250 MG TAB PO SCH ×5 (00:34→23:46)
[2016-09-19] MEDS: SODIUM CHLOR 0.9% 1000 ML INJ 1,000 ML IV SCH ×3 (00:36→15:18)
[2016-09-19] MEDS: RESP: ALBUTEROL 2.5 MG/IPRATROPIUM 0.5 MG NEB (SCH) NEB ×3 (02:05→15:38)
[2016-09-19] MEDS: cloNIDine HCL 0.1 MG TAB PO PRN ×2 (05:10→11:43)
[2016-09-19] MEDS: VANCOMYCIN 500 MG VIAL (FOR ORAL USE ONLY) PO SCH ×4 (05:10→21:15)
[2016-09-19] MEDS: FREE WATER G-TUBE SCH ×3 (06:00→22:00)
[2016-09-19] MEDS: metroNIDAZOLE 500 MG TAB PO SCH ×3 (06:17→22:00)
[2016-09-19] MEDS ORDERED: LIDOCAINE 1%/EPINEPHrine 1:100,000 SOLN 30 ML VIAL ONE (08:09)
[2016-09-19 08:37] LABS: AUTOMATED NEUTROPHIL # 9.7 TH/MM3 (1.8-7.7); BASOPHIL % 0.1 % (0.0-2.0); EOSINOPHIL # 0.1 TH/MM3 (0-0.4); EOSINOPHIL % 0.8 % (0.0-4.0); HEMATOCRIT 24.8 % (35.0-46.0); LYMPH % 5.9 % (9.0-44.0); LYMPHOCYTE # 0.7 TH/MM3 (1.0-4.8); MEAN CELL VOLUME 82.8 FL (80.0-100.0); MEAN CORPUSCULAR HEMOGLOBIN 26.8 PG (27.0-34.0); MEAN CORPUSCULAR HGB CONC 32.4 % (32.0-36.0); MONO % 6.9 % (0.0-8.0); NEUT % 86.3 % (16.0-70.0); PLATELET COUNT 449 TH/MM3 (150-450); RED BLOOD COUNT 2.99 MIL/MM3 (4.00-5.30); RED CELL DISTRIBUTION WIDTH 16.1 % (11.6-17.2); WHITE BLOOD COUNT 11.3 TH/MM3 (4.0-11.0)
[2016-09-19 08:41] LABS: HEMO FLAGS AUTO DIFF
[2016-09-19] MEDS: POTASSIUM CL 40 MEQ/30 ML LIQ UDC GT SCH (08:56)
[2016-09-19] MEDS: MULTIVITAMIN TAB PO SCH (08:57)
[2016-09-19] MEDS: LISINOPRIL 20 MG TAB PO SCH ×2 (08:57→21:00)
[2016-09-19] MEDS: PANTOPRAZOLE SOD 40 MG DELAYED RELEASE TAB PO SCH (08:57)
[2016-09-19] MEDS: LACTOBACILLUS ACIDOPHILUS TAB PO SCH ×3 (08:57→16:45)
[2016-09-19] MEDS: CALAMINE/PRAMOXINE LOTION 180 ML BTL TOPICAL SCH ×2 (08:58→21:00)
[2016-09-19] MEDS: BACITRACIN TOP OINT 15 GM TUBE TOP SCH ×2 (08:58→21:00)
[2016-09-19 08:59] LABS: AST (GOT) 15 U/L (15-37); BICARBONATE 21.5 MEQ/L (21.0-32.0); BLOOD UREA NITROGEN 8 MG/DL (7-18); CHLORIDE 116 MEQ/L (98-107); GLOMERULAR FILTRATION RATE 99 ML/MIN (>89); POTASSIUM 3.5 MEQ/L (3.5-5.1); SODIUM (NA) 145 MEQ/L (136-145)
[2016-09-19] MEDS: PETROLATUM 49%/ZINC OXIDE 15% 4 OUNCE TUBE TOPICAL SCH (08:59)
[2016-09-19] MEDS: SODIUM CHLORIDE 0.9% FLUSH 5 ML FLUSH IV FLUSH SCH ×2 (08:59→21:00)
[2016-09-19] MEDS: BETAMETHASONE DIPROPIONATE 0.05% CREAM 15 GM TOPICAL SCH ×2 (08:59→21:00)
[2016-09-19 09:00] LABS: ANION GAP 8 MEQ/L (5-15)
[2016-09-19 09:05] LABS: ALKALINE PHOSPHATASE 66 U/L (45-117); ALT (GPT) 16 U/L (10-53); TOTAL BILIRUBIN ADULT 0.1 MG/DL (0.2-1.0)
[2016-09-19] MEDS: CEFEPIME INJ 2,000 MG in SODIUM CHLORIDE 0.9% INJ 100 ML IV SCH ×2 (09:06→21:00)
[2016-09-19 09:35] LABS: BANDS 2 % (0-6); CORRECTED NUCLEATED RBC 2 /100 WBC (0-0); EOSINOPHILS 2 % (0-4); METAMYELOCYTES 1 % (0-1); MYELOCYTES 2 % (0-0); NEUTROPHIL # MANUAL DIFF 10.7 TH/MM3 (1.8-7.7); POLYS (SEG NEUTROPHILS) 90 % (16-70); WBC DIFF SAMPLE 100
[2016-09-19 09:36] LABS: KERATOCYTES OCC (NORMAL); PLATELET ESTIMATE SMEAR HIGH (NORMAL); PLATELET MORPHOLOGY NORMAL (NORMAL); SCAN/DIFF FINAL DIFF MANUAL
[2016-09-19] MEDS: ENOXAPARIN SODIUM 40 MG/0.4 ML SYRINGE SQ SCH (13:29)
[2016-09-19] MEDS ORDERED: LIDOCAINE 1%/EPINEPHrine 1:100,000 SOLN 30 ML VIAL INFIL ONE (15:15)
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
[2016-09-19] MEDS: hydrALAZINE HCL 25 MG TAB PO SCH (22:00)
[2016-09-20] VITALS (9 sets, daily range): BP systolic 130–191; BP diastolic 68–106; PULSE 86–108; RESP 20–22; TEMP 97.6–99.7; O2SAT 93–97
[2016-09-20] MEDS: RESP: ALBUTEROL 2.5 MG/IPRATROPIUM 0.5 MG NEB (SCH) NEB ×3 (00:22→15:20)
[2016-09-20] MEDS: hydrALAZINE HCL 25 MG TAB PO SCH ×3 (05:20→23:00)
[2016-09-20] MEDS: METOPROLOL TARTRATE 50 MG TAB GT SCH ×3 (05:21→23:00)
[2016-09-20] MEDS: FREE WATER G-TUBE SCH ×3 (05:21→22:00)
[2016-09-20] MEDS: POTASSIUM PHOSPHATE/SODIUM PHOSPHATE 250 MG TAB PO SCH ×3 (05:21→17:05)
[2016-09-20] MEDS: VANCOMYCIN 500 MG VIAL (FOR ORAL USE ONLY) PO SCH ×4 (05:21→23:00)
[2016-09-20] MEDS: metroNIDAZOLE 500 MG TAB PO SCH ×3 (05:21→23:00)
[2016-09-20] MEDS: PETROLATUM 49%/ZINC OXIDE 15% 4 OUNCE TUBE TOPICAL SCH (09:00)
[2016-09-20] MEDS: BETAMETHASONE DIPROPIONATE 0.05% CREAM 15 GM TOPICAL SCH ×2 (09:00→21:00)
[2016-09-20] MEDS: BACITRACIN TOP OINT 15 GM TUBE TOP SCH ×2 (09:00→21:00)
[2016-09-20] MEDS: SODIUM CHLORIDE 0.9% FLUSH 5 ML FLUSH IV FLUSH SCH ×2 (09:00→21:00)
[2016-09-20] MEDS: CALAMINE/PRAMOXINE LOTION 180 ML BTL TOPICAL SCH ×2 (09:00→21:00)
[2016-09-20] MEDS: MULTIVITAMIN TAB PO SCH (09:12)
[2016-09-20] MEDS: PANTOPRAZOLE SOD 40 MG DELAYED RELEASE TAB PO SCH (09:12)
[2016-09-20] MEDS: LACTOBACILLUS ACIDOPHILUS TAB PO SCH ×3 (09:12→17:04)
[2016-09-20] MEDS: POTASSIUM CL 40 MEQ/30 ML LIQ UDC GT SCH (09:12)
[2016-09-20] MEDS: LISINOPRIL 20 MG TAB PO SCH ×2 (09:12→23:00)
[2016-09-20] MEDS: CEFEPIME INJ 2,000 MG in SODIUM CHLORIDE 0.9% INJ 100 ML IV SCH ×2 (10:59→23:02)
--- NOTE | 2016-09-20 11:10 | HHI.IDPN ---
Subjective Subjective Remarks ID COVERAGE is a 60 y/o CF transferred to [facility] after Halicat was called due to hypotension and respiratory distress. She has a PMH of cerebral aneurysm repair , seizures, HTN, Hep C, tobacco abuse and is aphasic at baseline who originally presented to [facility] [place] [facility] 05/31/16 with failure to thrive. She was found to have severe sepsis had decubitus ulcers on her sacrum, buttocks, heels. She underwent laparoscopic diverting colostomy 07/15/16. On 08/13 she underwent colostomy revision per Dr. Faulkner due to peristomal hernia. Patient remained in ICU was on ventilator. Had Proteus Mirabilis UTI and bacteremia during this hospitalization. She was also treated for Cdiff positive diarrhea and followed by ID . She now appears to have recurrent large volume output through her stoma, positive blood culture from 09/10/2016. ID has been consulted for evaluation and Mment of bacteremia and Cdiff. Notes reviewed No fever Stool output seems decreased No rash No pain Antibiotics PO vanco Cefepime IV Flagyl oral. Lines Line sites with no e./o infection Past Medical History Reviewed Allergies: Coded Allergies: MRI PRECAUTION (Verified Adverse Reaction, Severe, ANEURYSM CLIP PER DR. [id number]-09/08/09, 05/31/16) *MDRO Multi-Drug Resistant Organism (Verified Adverse Reaction, Unknown, MRSA, 08/18/16) MRSA (sputum) - 10/2004 & 11/2004 ESBL Klebsiella Pneumoniae ([facility] wash-08/14/16) Objective . Vital Signs Date Time Temp Pulse Resp B/P Pulse Ox O2 Delivery O2 Flow Rate FiO2 09/20/16 08:45 93 21 09/20/16 08:01 99.0 90 20 166/90 94 09/20/16 04:00 99.7 94 22 149/84 94 09/20/16 00:24 93 Nasal Cannula 09/20/16 00:00 99.5 97 22 172/85 94 09/19/16 21:48 96 09/19/16 20:00 100.2 91 22 162/89 95 09/19/16 15:46 98.0 88 20 172/97 95 09/19/16 13:02 96.0 94 20 208/94 97 09/19/16 09/19/16 09/20/16 15:00 23:00 07:00 Intake Total 537 ml 1161 ml Output Total 250 ml 800 ml 300 ml Balance -250 ml -263 ml 861 ml IV Total 100 ml Tube Feeding 537 ml 661 ml Other 400 ml Output Urine Total 800 ml 300 ml Stool Total 250 ml # Bowel Movements 0 . Laboratory Tests Test 09/19/16 08:10 White Blood Count 11.3 TH/MM3 Red Blood Count 2.99 MIL/MM3 Hemoglobin 8.0 GM/DL Hematocrit 24.8 % Mean Corpuscular Volume 82.8 FL Mean Corpuscular Hemoglobin 26.8 PG Mean Corpuscular Hemoglobin 32.4 % Concent Red Cell Distribution Width 16.1 % Platelet Count 449 TH/MM3 Mean Platelet Volume 8.1 FL Neutrophils (%) (Auto) 86.3 % Lymphocytes (%) (Auto) 5.9 % Monocytes (%) (Auto) 6.9 % Eosinophils (%) (Auto) 0.8 % Basophils (%) (Auto) 0.1 % Neutrophils # (Auto) 9.7 TH/MM3 Lymphocytes # (Auto) 0.7 TH/MM3 Monocytes # (Auto) 0.8 TH/MM3 Eosinophils # (Auto) 0.1 TH/MM3 Basophils # (Auto) 0.0 TH/MM3 CBC Comment AUTO DIFF Differential Total Cells 100 Counted Neutrophils % (Manual) 90 % Band Neutrophils % 2 % Lymphocytes % 1 % Monocytes % 2 % Eosinophils % 2 % Neutrophils # (Manual) 10.7 TH/MM3 Metamyelocytes 1 % Myelocytes 2 % Nucleated Red Blood Cells 2 /100 WBC Differential Comment FINAL DIFF MANUAL Platelet Estimate HIGH Platelet Morphology Comment NORMAL Keratocytes OCC Laboratory Tests Test 09/19/16 08:10 Sodium Level 145 MEQ/L Potassium Level 3.5 MEQ/L Chloride Level 116 MEQ/L Carbon Dioxide Level 21.5 MEQ/L Anion Gap 8 MEQ/L Blood Urea Nitrogen 8 MG/DL Creatinine 0.62 MG/DL Estimat Glomerular Filtration 99 ML/MIN Rate Random Glucose 159 MG/DL Calcium Level 8.0 MG/DL Total Bilirubin 0.1 MG/DL Aspartate Amino Transf 15 U/L (AST/SGOT) Alanine Aminotransferase 16 U/L (ALT/SGPT) Alkaline Phosphatase 66 U/L C-Reactive Protein 12.80 MG/DL Total Protein 5.6 GM/DL Albumin 1.5 GM/DL Microbiology Date/Time Procedure Status Source Growth 09/17/16 21:46 Aerobic Blood Culture - Preliminary Resulted Blood Peripheral NO GROWTH IN 2 DAYS 09/17/16 21:46 Anaerobic Blood Culture - Preliminary Resulted Blood Peripheral NO GROWTH IN 2 DAYS 09/18/16 07:06 Aerobic Blood Culture - Preliminary Resulted Blood Other NO GROWTH IN 1 DAY 09/18/16 07:06 Anaerobic Blood Culture - Preliminary Resulted Blood Other NO GROWTH IN 1 DAY 09/18/16 18:30 Wound Culture Ordered Catheter Tip Other Pending Imaging Last Impressions Chest X-Ray 08/18/16 0000 Signed Impressions: Service Date/Time: Thursday, August 18, 2016 05:18 - CONCLUSION: Interval increase in opacity in both lung bases as well as apparent bilateral effusions. The findings could indicate congestive heart failure. Zechariah Sutton MD Abdomen/Pelvis CT 08/14/16 0000 Signed Impressions: Service Date/Time: July 15:44 - CONCLUSION: 1. There is no evidence for an intraabdominal process as the cause of sepsis. 2. There is mild prominence to both collecting systems, nonspecific. Vinay Avalos MD FACR Lower Extremity Ultrasound 06/01/16 0000 Signed Impressions: Service Date/Time: Wednesday, June 01, 2016 02:44 - CONCLUSION: No evidence of lower extremity DVT on the right or left. Rony Espinoza MD Head CT 05/31/16 0000 Signed Impressions: Service Date/Time: Tuesday, May 31, 2016 11:51 - CONCLUSION: 1. 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 2. Negative for an acute process. Vinay Avalos MD FACR Physical Exam GENERAL: Awake, and responding, comfortable SKIN: No jaundice, cool and dry. No rash. EYES: Pupils equal and round and reactive. No scleral icterus. No injection or drainage. ENT: .Oral mucosae moist without visible erythema, exudates CARDIOVASCULAR: HS audible. RESPIRATORY/CHEST: Decreased BS at bases GASTROINTESTINAL: Abdomen soft, moderately distended, not tender. Colostomy with liquid stool. Incision dry and clean GENITOURINARY: Without palpable bladder distension. Duke catheter in place. MUSCULOSKELETAL: Extremities without clubbing, cyanosis, or edema. . No mottling or clubbing. NEUROLOGICAL: awake alert, responding, makes eye contact speech clear LINE: Port site with no e/o infection. Assessment & Plan Remarks Persistent or recurrent Proteus bacteremia Proteus UTI/vs seeding. PNA, growing Proteus, ESBL Kleb and MSSA treated UTI E.coli, Proteus. C.diff hypervirulent 027 strain Infected decubs, S/P diverting colostomy, sp revision of colostomy PLAN: Follow C/S Continue Cefepime IV (for proteus bacteremia) Continue Oral Flagyl for Cdiff Continue oral Vanco for Cdiff Port removal: not accessible, placed 10 years back, not accessed in many years, persistent bacteremia. Recommend General Surgery consult for port removal (may have fibrous adhesions). Monitor progress Ronda Francois MD Sep 20, 2016 11:10
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
[2016-09-20] MEDS: ENOXAPARIN SODIUM 40 MG/0.4 ML SYRINGE SQ SCH (14:00)
--- NOTE | 2016-09-20 16:38 | RADRPT ---
EXAM DATE/TIME: 09/20/2016 15:48 [facility] COMPARISON: CHEST SINGLE AP, September 10, 2016, 9:17. INDICATIONS : Port removal with residual catheter. MEDICAL HISTORY : Hypertension. Chronic obstructive pulmonary disease. Asthma. SURGICAL HISTORY : None. ENCOUNTER: Initial ACUITY: 1 day PAIN SCORE: Non-responsive. LOCATION: Bilateral chest FINDINGS: There is a residual tubing present in the left innominate and arch in the superior vena cava. No roseann dence of pneumothorax. There is bilateral lower lung opacities and loss of delineation of both hemid iaphragms suggesting a combination of bibasilar infiltrates and pleural effusion. This is a new find ing when compared to prior chest x-ray 09/10/16. The heart is normal in size. CONCLUSION: 1. Status post port removal with retention of the catheter in the innominate vein. 2. Interval development of bibasilar opacities characteristic of a combination of pleural effusions and consolidative infiltrates. Hiren Cantu MD on September 20, 2016 at 16:34 Board Certified Radiologist. This report was verified electronically.
[2016-09-21] VITALS (8 sets, daily range): BP systolic 129–185; BP diastolic 73–104; PULSE 78–98; RESP 18–20; TEMP 96.7–99.6; O2SAT 93–100
[2016-09-21] MEDS: RESP: ALBUTEROL 2.5 MG/IPRATROPIUM 0.5 MG NEB (SCH) NEB ×3 (01:21→15:57)
[2016-09-21] MEDS: VANCOMYCIN 500 MG VIAL (FOR ORAL USE ONLY) PO SCH ×4 (02:12→22:38)
[2016-09-21] MEDS: POTASSIUM PHOSPHATE/SODIUM PHOSPHATE 250 MG TAB PO SCH ×5 (05:53→22:39)
[2016-09-21] MEDS: hydrALAZINE HCL 25 MG TAB PO SCH ×3 (05:53→22:39)
[2016-09-21] MEDS: metroNIDAZOLE 500 MG TAB PO SCH ×3 (05:53→22:38)
[2016-09-21] MEDS: FREE WATER G-TUBE SCH ×3 (05:53→22:00)
[2016-09-21] MEDS: METOPROLOL TARTRATE 50 MG TAB GT SCH ×3 (06:38→22:39)
[2016-09-21] MEDS: LISINOPRIL 20 MG TAB PO SCH ×2 (08:10→22:39)
[2016-09-21] MEDS: POTASSIUM CL 40 MEQ/30 ML LIQ UDC GT SCH (08:10)
[2016-09-21] MEDS: LACTOBACILLUS ACIDOPHILUS TAB PO SCH ×3 (08:10→17:58)
[2016-09-21] MEDS: ACETAMINOPHEN 325 MG TAB PO PRN (08:11)
[2016-09-21] MEDS: MULTIVITAMIN TAB PO SCH (08:11)
[2016-09-21] MEDS: PANTOPRAZOLE SOD 40 MG DELAYED RELEASE TAB PO SCH (08:11)
[2016-09-21] MEDS: cloNIDine HCL 0.1 MG TAB PO PRN (08:11)
[2016-09-21] MEDS: CALAMINE/PRAMOXINE LOTION 180 ML BTL TOPICAL SCH ×2 (08:28→21:00)
[2016-09-21] MEDS: BACITRACIN TOP OINT 15 GM TUBE TOP SCH ×2 (08:28→21:00)
[2016-09-21] MEDS: BETAMETHASONE DIPROPIONATE 0.05% CREAM 15 GM TOPICAL SCH ×2 (08:28→21:00)
[2016-09-21] MEDS: PETROLATUM 49%/ZINC OXIDE 15% 4 OUNCE TUBE TOPICAL SCH (08:28)
[2016-09-21] MEDS: SODIUM CHLORIDE 0.9% FLUSH 5 ML FLUSH IV FLUSH SCH ×2 (08:29→21:00)
[2016-09-21] MEDS: CEFEPIME INJ 2,000 MG in SODIUM CHLORIDE 0.9% INJ 100 ML IV SCH ×2 (10:14→22:40)
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
--- NOTE | 2016-09-21 12:58 | HHI.IDPN ---
Subjective Subjective Remarks ID COVERAGE is a 60 y/o CF transferred to [facility] after [facility] was called due to hypotension and respiratory distress. She has a PMH of cerebral aneurysm repair , seizures, HTN, Hep C, tobacco abuse and is aphasic at baseline who originally presented to [facility] [place] ED 05/31/16 with failure to thrive. She was found to have severe sepsis had decubitus ulcers on her sacrum, buttocks, heels. She underwent laparoscopic diverting colostomy 07/15/16. On 08/13 she underwent colostomy revision per Dr. Faulkner due to peristomal hernia. Patient remained in ICU was on ventilator. Had Proteus Mirabilis UTI and bacteremia during this hospitalization. She was also treated for Cdiff positive diarrhea and followed by ID . She now appears to have recurrent large volume output through her stoma, positive blood culture from 09/10/2016. ID has been consulted for evaluation and Mment of bacteremia and Cdiff. Notes reviewed Port removed yesterday, cath fractured and there is remnant left IR consulted to retrieve the remnant of catheter No fever Stool output seems decreased No rash No pain Antibiotics PO vanco Cefepime IV Flagyl oral. Lines Line sites with no e./o infection Past Medical History Reviewed Allergies: Coded Allergies: MRI PRECAUTION (Verified Adverse Reaction, Severe, ANEURYSM CLIP PER DR. [id number]-09/08/09, 05/31/16) *MDRO Multi-Drug Resistant Organism (Verified Adverse Reaction, Unknown, MRSA, 08/18/16) MRSA (sputum) - 10/2004 & 11/2004 ESBL Klebsiella Pneumoniae ([facility]-08/14/16) Objective . Vital Signs Date Time Temp Pulse Resp B/P Pulse Ox O2 Delivery O2 Flow Rate FiO2 09/21/16 12:08 97.6 82 20 129/85 100 09/21/16 09:38 92 137/73 09/21/16 08:34 97 21 09/21/16 08:17 97.9 88 20 185/104 94 09/21/16 04:00 97.5 95 18 155/73 93 09/21/16 00:00 97.3 78 20 152/77 96 09/20/16 20:00 97.6 87 20 159/78 97 09/20/16 16:53 86 130/68 09/20/16 16:00 99.7 108 20 191/106 95 09/20/16 09/20/16 09/21/16 15:00 23:00 07:00 Intake Total 240 ml 240 ml Output Total 950 ml 700 ml 900 ml Balance -710 ml -460 ml -900 ml Intake Oral 240 ml 240 ml Output Urine Total 950 ml 700 ml 900 ml . Microbiology Date/Time Procedure Status Source Growth 09/18/16 18:30 Wound Culture Ordered Catheter Tip Other Pending Imaging Last Impressions Chest X-Ray 08/18/16 0000 Signed Impressions: Service Date/Time: Thursday, August 18, 2016 05:18 - CONCLUSION: Interval increase in opacity in both lung bases as well as apparent bilateral effusions. The findings could indicate congestive heart failure. Zechariah Sutton MD Abdomen/Pelvis CT 08/14/16 0000 Signed Impressions: Service Date/Time: July 15:44 - CONCLUSION: 1. There is no evidence for an intraabdominal process as the cause of sepsis. 2. There is mild prominence to both collecting systems, nonspecific. Vinay Avalos MD FACR Lower Extremity Ultrasound 06/01/16 0000 Signed Impressions: Service Date/Time: Wednesday, June 01, 2016 02:44 - CONCLUSION: No evidence of lower extremity DVT on the right or left. Rony Espinoza MD Head CT 05/31/16 0000 Signed Impressions: Service Date/Time: Tuesday, May 31, 2016 11:51 - CONCLUSION: 1. 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 2. Negative for an acute process. Vinay Avalos MD FACR Physical Exam GENERAL: Awake, and responding, NAD SKIN: No jaundice, cool and dry. No rash. EYES: Pupils equal and round and reactive. No scleral icterus. No injection or drainage. ENT: .Oral mucosae moist without visible exudates CARDIOVASCULAR: HS audible. RESPIRATORY/CHEST: Decreased BS at bases GASTROINTESTINAL: Abdomen soft, moderately distended, not tender. Colostomy with liquid stool. Incision dry and clean GENITOURINARY: Without palpable bladder distension. [facility] catheter in place. MUSCULOSKELETAL: Extremities without clubbing, cyanosis, or edema. . No mottling or clubbing. NEUROLOGICAL: awake alert, responding, makes eye contact speech clear LINE: Previous ort site with dry incision, has steristrips Assessment & Plan Remarks Persistent or recurrent Proteus bacteremia Proteus UTI/vs seeding. PNA, growing Proteus, ESBL Kleb and MSSA treated UTI E.coli, Proteus. C.diff hypervirulent 027 strain Infected decubs, S/P diverting colostomy, sp revision of colostomy PLAN: Follow C/S Continue Cefepime IV (for proteus bacteremia) Continue Oral Flagyl for Cdiff Continue oral Vanco for Cdiff Monitor progress D/W Ronda Prasad MD Sep 21, 2016 12:58
[2016-09-21] MEDS: ENOXAPARIN SODIUM 40 MG/0.4 ML SYRINGE SQ SCH (14:00)
[2016-09-21] MEDS: diphenhydrAMINE HCL 25 MG CAP PO PRN (22:39)
[2016-09-21] MEDS: ENALAPRILAT 1.25 MG/ML VIAL IV PRN (22:57)
[2016-09-22] VITALS (9 sets, daily range): BP systolic 104–174; BP diastolic 64–103; PULSE 53–100; RESP 18–32; TEMP 96.8–98.3; O2SAT 94–100
[2016-09-22] MEDS: RESP: ALBUTEROL 2.5 MG/IPRATROPIUM 0.5 MG NEB (SCH) NEB ×4 (00:11→23:05)
[2016-09-22] MEDS: VANCOMYCIN 500 MG VIAL (FOR ORAL USE ONLY) PO SCH ×4 (03:10→23:06)
[2016-09-22] MEDS: hydrALAZINE HCL 25 MG TAB PO SCH ×3 (05:22→23:05)
[2016-09-22] MEDS: POTASSIUM PHOSPHATE/SODIUM PHOSPHATE 250 MG TAB PO SCH ×3 (05:22→23:06)
[2016-09-22] MEDS: metroNIDAZOLE 500 MG TAB PO SCH ×3 (05:22→23:06)
[2016-09-22] MEDS: METOPROLOL TARTRATE 50 MG TAB GT SCH ×3 (05:23→23:06)
[2016-09-22] MEDS: ENALAPRILAT 1.25 MG/ML VIAL IV PRN (05:36)
[2016-09-22] MEDS: cloNIDine HCL 0.1 MG TAB PO PRN (05:36)
[2016-09-22] MEDS: FREE WATER G-TUBE SCH ×3 (06:00→23:06)
[2016-09-22 07:46] LABS: AUTOMATED NEUTROPHIL # 10.8 TH/MM3 (1.8-7.7); BASOPHIL % 0.1 % (0.0-2.0); EOSINOPHIL # 0.1 TH/MM3 (0-0.4); EOSINOPHIL % 0.5 % (0.0-4.0); HEMATOCRIT 28.1 % (35.0-46.0); LYMPH % 7.2 % (9.0-44.0); LYMPHOCYTE # 0.9 TH/MM3 (1.0-4.8); MEAN CELL VOLUME 83.4 FL (80.0-100.0); MEAN CORPUSCULAR HEMOGLOBIN 26.6 PG (27.0-34.0); MEAN CORPUSCULAR HGB CONC 31.9 % (32.0-36.0); MONO % 9.6 % (0.0-8.0); NEUT % 82.6 % (16.0-70.0); PLATELET COUNT 539 TH/MM3 (150-450); RED BLOOD COUNT 3.37 MIL/MM3 (4.00-5.30); WHITE BLOOD COUNT 13.1 TH/MM3 (4.0-11.0)
[2016-09-22 07:54] LABS: HEMO FLAGS AUTO DIFF
[2016-09-22 08:29] LABS: BICARBONATE 22.7 MEQ/L (21.0-32.0)
[2016-09-22 08:49] LABS: BANDS 8 % (0-6); BASOPHILS 1 % (0-2); EOSINOPHILS 2 % (0-4); METAMYELOCYTES 1 % (0-1); MYELOCYTES 3 % (0-0); PLATELET ESTIMATE SMEAR HIGH (NORMAL); PLATELET MORPHOLOGY NORMAL (NORMAL); POLYS (SEG NEUTROPHILS) 71 % (16-70); PROMYELOCYTES 1 % (0-0); SCAN/DIFF FINAL DIFF MANUAL; WBC DIFF SAMPLE 100
[2016-09-22] MEDS: LACTOBACILLUS ACIDOPHILUS TAB PO SCH ×3 (09:25→23:05)
[2016-09-22] MEDS: MULTIVITAMIN TAB PO SCH (09:25)
[2016-09-22] MEDS: LISINOPRIL 20 MG TAB PO SCH ×2 (09:25→21:00)
[2016-09-22] MEDS: POTASSIUM CL 40 MEQ/30 ML LIQ UDC GT SCH (09:25)
[2016-09-22] MEDS: PANTOPRAZOLE SOD 40 MG DELAYED RELEASE TAB PO SCH (09:25)
[2016-09-22] MEDS: CEFEPIME INJ 2,000 MG in SODIUM CHLORIDE 0.9% INJ 100 ML IV SCH ×2 (09:26→23:07)
[2016-09-22] MEDS: SODIUM CHLORIDE 0.9% FLUSH 5 ML FLUSH IV FLUSH SCH ×2 (09:26→23:07)
[2016-09-22] MEDS: EUCERIN CREAM 120 GM JAR TOPICAL PRN (09:27)
[2016-09-22] MEDS: CALAMINE/PRAMOXINE LOTION 180 ML BTL TOPICAL SCH ×2 (09:27→21:00)
[2016-09-22] MEDS: BACITRACIN TOP OINT 15 GM TUBE TOP SCH ×2 (09:28→21:00)
[2016-09-22] MEDS: BETAMETHASONE DIPROPIONATE 0.05% CREAM 15 GM TOPICAL SCH ×2 (09:29→21:00)
[2016-09-22] MEDS: PETROLATUM 49%/ZINC OXIDE 15% 4 OUNCE TUBE TOPICAL SCH (09:29)
[2016-09-22] MEDS: ENOXAPARIN SODIUM 40 MG/0.4 ML SYRINGE SQ SCH (12:39)
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
--- NOTE | 2016-09-22 14:52 | HHI.IDPN ---
Subjective Subjective Remarks is a 60 y/o CF transferred to [facility] after Halicat was called due to hypotension and respiratory distress. She has a PMH of cerebral aneurysm repair , seizures, HTN, Hep C, tobacco abuse and is aphasic at baseline who originally presented to [facility] ED 05/31/16 with failure to thrive. She was found to have severe sepsis had decubitus ulcers on her sacrum, buttocks, heels. She underwent laparoscopic diverting colostomy 07/15/16. On 08/13 she underwent colostomy revision per Dr. Faulkner due to peristomal hernia. Patient remained in ICU was on ventilator. Had Proteus Mirabilis UTI and bacteremia during this hospitalization. She was also treated for Cdiff positive diarrhea and followed by ID . She now appears to have recurrent large volume output through her stoma, positive blood culture from 09/10/2016. ID has been consulted for evaluation and Mment of bacteremia and Cdiff. Notes reviewed Port removed yesterday, cath fractured and there is remnant left IR consulted to retrieve the remnant of catheter No fever Stool output seems decreased No rash No pain Antibiotics PO vanco Cefepime IV Flagyl oral. Lines Line sites with no e./o infection Past Medical History Reviewed Allergies: Coded Allergies: MRI PRECAUTION (Verified Adverse Reaction, Severe, ANEURYSM CLIP PER DR. [id number]-09/08/09, 05/31/16) *MDRO Multi-Drug Resistant Organism (Verified Adverse Reaction, Unknown, MRSA, 08/18/16) MRSA (sputum) - 10/2004 & 11/2004 ESBL Klebsiella Pneumoniae ([facility] wash-08/14/16) Objective . Vital Signs Date Time Temp Pulse Resp B/P Pulse Ox O2 Delivery O2 Flow Rate FiO2 09/22/16 12:36 98.0 100 20 174/92 100 09/22/16 08:34 98.2 82 20 148/75 95 09/22/16 08:10 95 21 09/22/16 04:00 97.3 99 20 165/103 95 09/22/16 00:00 98.3 53 18 156/89 94 09/21/16 20:00 99.6 98 18 180/92 94 09/21/16 16:42 96.7 92 20 162/87 95 09/21/16 09/21/16 09/22/16 15:00 23:00 07:00 Intake Total 240 ml Output Total 1250 ml 800 ml Balance -1010 ml -800 ml Intake Oral 240 ml Output Urine Total 1250 ml 800 ml . Laboratory Tests Test 09/22/16 06:29 White Blood Count 13.1 TH/MM3 Red Blood Count 3.37 MIL/MM3 Hemoglobin 9.0 GM/DL Hematocrit 28.1 % Mean Corpuscular Volume 83.4 FL Mean Corpuscular Hemoglobin 26.6 PG Mean Corpuscular Hemoglobin 31.9 % Concent Red Cell Distribution Width 17.0 % Platelet Count 539 TH/MM3 Mean Platelet Volume 8.3 FL Neutrophils (%) (Auto) 82.6 % Lymphocytes (%) (Auto) 7.2 % Monocytes (%) (Auto) 9.6 % Eosinophils (%) (Auto) 0.5 % Basophils (%) (Auto) 0.1 % Neutrophils # (Auto) 10.8 TH/MM3 Lymphocytes # (Auto) 0.9 TH/MM3 Monocytes # (Auto) 1.3 TH/MM3 Eosinophils # (Auto) 0.1 TH/MM3 Basophils # (Auto) 0.0 TH/MM3 CBC Comment AUTO DIFF Differential Total Cells 100 Counted Neutrophils % (Manual) 71 % Band Neutrophils % 8 % Lymphocytes % 3 % Monocytes % 10 % Eosinophils % 2 % Basophils % 1 % Neutrophils # (Manual) 11.0 TH/MM3 Metamyelocytes 1 % Myelocytes 3 % Promyelocytes 1 % Differential Comment FINAL DIFF MANUAL Platelet Estimate HIGH Platelet Morphology Comment NORMAL Red Cell Morphology Comment NORMAL Laboratory Tests Test 09/22/16 06:29 Sodium Level 140 MEQ/L Potassium Level 4.0 MEQ/L Chloride Level 108 MEQ/L Carbon Dioxide Level 22.7 MEQ/L Anion Gap 9 MEQ/L Blood Urea Nitrogen 24 MG/DL Creatinine 1.07 MG/DL Estimat Glomerular Filtration 52 ML/MIN Rate Random Glucose 96 MG/DL Calcium Level 8.4 MG/DL Imaging Last Impressions Chest X-Ray 08/18/16 0000 Signed Impressions: Service Date/Time: Thursday, August 18, 2016 05:18 - CONCLUSION: Interval increase in opacity in both lung bases as well as apparent bilateral effusions. The findings could indicate congestive heart failure. Zechariah Sutton MD Abdomen/Pelvis CT 08/14/16 0000 Signed Impressions: Service Date/Time: July 15:44 - CONCLUSION: 1. There is no evidence for an intraabdominal process as the cause of sepsis. 2. There is mild prominence to both collecting systems, nonspecific. Vinay Avalos MD FACR Lower Extremity Ultrasound 06/01/16 0000 Signed Impressions: Service Date/Time: Wednesday, June 01, 2016 02:44 - CONCLUSION: No evidence of lower extremity DVT on the right or left. Rony Espinoza MD Head CT 05/31/16 0000 Signed Impressions: Service Date/Time: Tuesday, May 31, 2016 11:51 - CONCLUSION: 1. 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 2. Negative for an acute process. Vinay Avalos MD FACR Physical Exam GENERAL: Awake, and responding, NAD SKIN: No jaundice, cool and dry. No rash. EYES: Pupils equal and round and reactive. No scleral icterus. No injection or drainage. ENT: .Oral mucosae moist without visible exudates CARDIOVASCULAR: HS audible. RESPIRATORY/CHEST: Decreased BS at bases GASTROINTESTINAL: Abdomen soft, moderately distended, not tender. Colostomy with liquid stool. Incision dry and clean GENITOURINARY: Without palpable bladder distension. Duke catheter in place. MUSCULOSKELETAL: Extremities without clubbing, cyanosis, or edema. . No mottling or clubbing. NEUROLOGICAL: awake alert, responding, makes eye contact speech clear LINE: Previous ort site with dry incision, has steristrips Assessment & Plan Remarks Persistent or recurrent Proteus bacteremia Proteus UTI/vs seeding. PNA, growing Proteus, ESBL Kleb and MSSA treated UTI E.coli, Proteus. C.diff hypervirulent 027 strain Infected decubs, S/P diverting colostomy, sp revision of colostomy PLAN: Follow C/S Continue Cefepime IV (for proteus bacteremia) Continue Oral Flagyl for Cdiff Continue oral Vanco for Cdiff Monitor progress Once remaining catheter removed will provide DC plans from ID standpoint. D/W Jennifer Bynum MD Sep 22, 2016 14:52
[2016-09-22] MEDS ORDERED: MIDAZOLAM HCL 5 MG/5 ML VIAL ONE (15:48)
[2016-09-22] MEDS ORDERED: fentaNYL CITRATE 250 MCG/5 ML AMP ONE (15:48)
--- NOTE | 2016-09-22 17:50 | PD.RAD ---
Post Procedure Progress Note Procedure Date: Sep 22, 2016 Supervising Radiologist: Reed Rico Plan of Activity See PACS Report for procedural detail/treatment Vascular-Venous Procedure Procedure 1 Procedure Site: Thoracic Procedure(s): Foreign Body Retrieval (unsucessful) Access Access Site(s): Right Femoral Vein Reed Rico MD Sep 22, 2016 17:50
[2016-09-22] MEDS ORDERED: IOHEXOL 350 MG/ML 50 ML BTL (for RAD DIAG) IV ONE (18:10)
[2016-09-23] VITALS (14 sets, daily range): BP systolic 116–146; BP diastolic 69–91; PULSE 72–102; RESP 22–31; TEMP 97.5–98.7; O2SAT 98–100
[2016-09-23] MEDS: VANCOMYCIN 500 MG VIAL (FOR ORAL USE ONLY) PO SCH ×4 (04:49→23:05)
[2016-09-23] MEDS: metroNIDAZOLE 500 MG TAB PO SCH ×3 (04:49→23:04)
[2016-09-23] MEDS: hydrALAZINE HCL 25 MG TAB PO SCH ×3 (04:49→23:04)
[2016-09-23] MEDS: FREE WATER G-TUBE SCH ×3 (04:49→22:00)
[2016-09-23] MEDS: POTASSIUM PHOSPHATE/SODIUM PHOSPHATE 250 MG TAB PO SCH ×4 (06:00→17:59)
[2016-09-23] MEDS: METOPROLOL TARTRATE 50 MG TAB GT SCH ×3 (06:30→23:04)
[2016-09-23] MEDS: RESP: ALBUTEROL 2.5 MG/IPRATROPIUM 0.5 MG NEB (SCH) NEB ×2 (07:58→16:22)
[2016-09-23] MEDS: PANTOPRAZOLE SOD 40 MG DELAYED RELEASE TAB PO SCH (09:00)
[2016-09-23] MEDS: BACITRACIN TOP OINT 15 GM TUBE TOP SCH ×2 (09:00→23:07)
[2016-09-23] MEDS: POTASSIUM CL 40 MEQ/30 ML LIQ UDC GT SCH (09:49)
[2016-09-23] MEDS: MULTIVITAMIN TAB PO SCH (09:50)
[2016-09-23] MEDS: LACTOBACILLUS ACIDOPHILUS TAB PO SCH ×3 (09:50→17:59)
[2016-09-23] MEDS: LISINOPRIL 20 MG TAB PO SCH ×2 (09:50→23:04)
[2016-09-23] MEDS: SODIUM CHLORIDE 0.9% FLUSH 5 ML FLUSH IV FLUSH SCH ×2 (09:50→23:03)
[2016-09-23] MEDS: PETROLATUM 49%/ZINC OXIDE 15% 4 OUNCE TUBE TOPICAL SCH (09:50)
[2016-09-23] MEDS: CALAMINE/PRAMOXINE LOTION 180 ML BTL TOPICAL SCH ×2 (09:51→23:06)
[2016-09-23] MEDS: CEFEPIME INJ 2,000 MG in SODIUM CHLORIDE 0.9% INJ 100 ML IV SCH ×2 (09:55→23:02)
[2016-09-23] MEDS: BETAMETHASONE DIPROPIONATE 0.05% CREAM 15 GM TOPICAL SCH ×2 (12:07→23:06)
--- NOTE | 2016-09-23 12:07 | HHI.IDPN ---
Subjective Subjective Remarks is a 60 y/o CF transferred to [facility] after Halicat was called due to hypotension and respiratory distress. She has a PMH of cerebral aneurysm repair , seizures, HTN, Hep C, tobacco abuse and is aphasic at baseline who originally presented to [facility] 05/31/16 with failure to thrive. She was found to have severe sepsis had decubitus ulcers on her sacrum, buttocks, heels. She underwent laparoscopic diverting colostomy 07/15/16. On 08/13 she underwent colostomy revision per Dr. Faulkner due to peristomal hernia. Patient remained in ICU was on ventilator. Had Proteus Mirabilis UTI and bacteremia during this hospitalization. She was also treated for Cdiff positive diarrhea and followed by ID . She now appears to have recurrent large volume output through her stoma, positive blood culture from 09/10/2016. ID has been consulted for evaluation and Mment of bacteremia and Cdiff. Notes reviewed transferred to ICU after port lead removal surgery. Hemodynamics stable overnight No fever Stool output seems decreased No rash No pain Antibiotics PO vanco Cefepime IV Flagyl oral. Lines Line sites with no e./o infection Past Medical History Reviewed Allergies: Coded Allergies: MRI PRECAUTION (Verified Adverse Reaction, Severe, ANEURYSM CLIP PER DR. [id number]-09/08/09, 05/31/16) *MDRO Multi-Drug Resistant Organism (Verified Adverse Reaction, Unknown, MRSA, 08/18/16) MRSA (sputum) - 10/2004 & 11/2004 ESBL Klebsiella Pneumoniae ([facility] wash-08/14/16) Objective . Vital Signs Date Time Temp Pulse Resp B/P Pulse Ox O2 Delivery O2 Flow Rate FiO2 09/23/16 10:00 87 09/23/16 08:00 85 09/23/16 08:00 97.7 83 31 127/73 100 09/23/16 08:00 100 Nasal Cannula 3.00 09/23/16 07:58 100 Nasal Cannula 5.00 09/23/16 07:00 100 Nasal Cannula 5.00 09/23/16 06:00 72 09/23/16 04:00 72 09/23/16 04:00 98.0 74 25 116/69 100 09/23/16 02:00 80 09/23/16 01:00 92 Nasal Cannula 5.00 09/23/16 00:00 76 09/23/16 00:00 97.5 74 24 123/70 100 09/22/16 23:05 100 Nasal Cannula 2.00 09/22/16 22:00 97.5 80 24 104/64 100 09/22/16 22:00 81 09/22/16 22:00 100 Nasal Cannula 4.00 09/22/16 21:00 100 Nasal Cannula 2.00 09/22/16 20:45 96.8 86 32 153/83 100 09/22/16 20:10 98.1 82 22 128/85 98 Nasal Cannula 2 09/22/16 20:00 22 128/85 98 Nasal Cannula 2 09/22/16 19:45 22 135/84 98 Nasal Cannula 2 09/22/16 19:30 81 20 135/84 98 Nasal Cannula 2 09/22/16 19:15 108 20 128/81 98 Nasal Cannula 2 09/22/16 19:00 78 22 90/64 98 Nasal Cannula 2 09/22/16 18:45 81 20 90/66 98 Nasal Cannula 2 09/22/16 18:30 81 20 113/77 98 Nasal Cannula 2 09/22/16 18:15 86 20 139/92 100 Nasal Cannula 2 09/22/16 17:58 98.1 149 20 138/96 100 Nasal Cannula 2 Manual Cuff/Auscultation 09/22/16 15:26 97.5 88 20 138/80 97 09/22/16 12:36 98.0 100 20 174/92 100 09/22/16 09/22/16 09/23/16 15:00 23:00 07:00 Intake Total 260 ml 530 ml Output Total 1070 ml 380.0 ml Balance -810 ml 150.0 ml IV Total 224 ml Tube Feeding 106 ml Tube Irrigant 60 ml Other 200 ml 200 ml Output Urine Total 1040 ml 300 ml Stool Total 10 ml 0 ml Gastric Drainage Total 20 ml Tube Feeding Residual Discard 80.0 ml Drainage Total 0 ml 0 ml Estimated Blood Loss 0 ml Bladder Scan Volume Amount 0 ml . Laboratory Tests Test 09/22/16 06:29 White Blood Count 13.1 TH/MM3 Red Blood Count 3.37 MIL/MM3 Hemoglobin 9.0 GM/DL Hematocrit 28.1 % Mean Corpuscular Volume 83.4 FL Mean Corpuscular Hemoglobin 26.6 PG Mean Corpuscular Hemoglobin 31.9 % Concent Red Cell Distribution Width 17.0 % Platelet Count 539 TH/MM3 Mean Platelet Volume 8.3 FL Neutrophils (%) (Auto) 82.6 % Lymphocytes (%) (Auto) 7.2 % Monocytes (%) (Auto) 9.6 % Eosinophils (%) (Auto) 0.5 % Basophils (%) (Auto) 0.1 % Neutrophils # (Auto) 10.8 TH/MM3 Lymphocytes # (Auto) 0.9 TH/MM3 Monocytes # (Auto) 1.3 TH/MM3 Eosinophils # (Auto) 0.1 TH/MM3 Basophils # (Auto) 0.0 TH/MM3 CBC Comment AUTO DIFF Differential Total Cells 100 Counted Neutrophils % (Manual) 71 % Band Neutrophils % 8 % Lymphocytes % 3 % Monocytes % 10 % Eosinophils % 2 % Basophils % 1 % Neutrophils # (Manual) 11.0 TH/MM3 Metamyelocytes 1 % Myelocytes 3 % Promyelocytes 1 % Differential Comment FINAL DIFF MANUAL Platelet Estimate HIGH Platelet Morphology Comment NORMAL Red Cell Morphology Comment NORMAL Laboratory Tests Test 09/22/16 06:29 Sodium Level 140 MEQ/L Potassium Level 4.0 MEQ/L Chloride Level 108 MEQ/L Carbon Dioxide Level 22.7 MEQ/L Anion Gap 9 MEQ/L Blood Urea Nitrogen 24 MG/DL Creatinine 1.07 MG/DL Estimat Glomerular Filtration 52 ML/MIN Rate Random Glucose 96 MG/DL Calcium Level 8.4 MG/DL Imaging Last Impressions Chest X-Ray 08/18/16 0000 Signed Impressions: Service Date/Time: Thursday, August 18, 2016 05:18 - CONCLUSION: Interval increase in opacity in both lung bases as well as apparent bilateral effusions. The findings could indicate congestive heart failure. Zechariah Sutton MD Abdomen/Pelvis CT 08/14/16 0000 Signed Impressions: Service Date/Time: July 15:44 - CONCLUSION: 1. There is no evidence for an intraabdominal process as the cause of sepsis. 2. There is mild prominence to both collecting systems, nonspecific. Vinay Avalos MD FACR Lower Extremity Ultrasound 06/01/16 0000 Signed Impressions: Service Date/Time: Wednesday, June 01, 2016 02:44 - CONCLUSION: No evidence of lower extremity DVT on the right or left. Rony Espinoza MD Head CT 05/31/16 0000 Signed Impressions: Service Date/Time: Tuesday, May 31, 2016 11:51 - CONCLUSION: 1. 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 2. Negative for an acute process. Vinay Avalos MD FACR Physical Exam GENERAL: Awake, and responding, NAD SKIN: No jaundice, cool and dry. No rash. EYES: Pupils equal and round and reactive. No scleral icterus. No injection or drainage. ENT: .Oral mucosae moist without visible exudates CARDIOVASCULAR: HS audible. RESPIRATORY/CHEST: Decreased BS at bases GASTROINTESTINAL: Abdomen soft, moderately distended, not tender. Colostomy with liquid stool. Incision dry and clean GENITOURINARY: Without palpable bladder distension. Duke catheter in place. MUSCULOSKELETAL: Extremities without clubbing, cyanosis, or edema. . No mottling or clubbing. NEUROLOGICAL: awake alert, responding, makes eye contact speech clear LINE: Previous port site with dry incision, has steristrips Assessment & Plan Remarks Persistent or recurrent Proteus bacteremia Proteus UTI/vs seeding. PNA, growing Proteus, ESBL Kleb and MSSA treated UTI E.coli, Proteus. C.diff hypervirulent 027 strain Infected decubs, S/P diverting colostomy, sp revision of colostomy PLAN: Follow C/S Continue Cefepime IV (for proteus bacteremia) Continue Oral Flagyl for Cdiff Continue oral Vanco for Cdiff Monitor progress Once remaining catheter removed will provide DC plans from ID standpoint. D/W Jennifer Bynum MD Sep 23, 2016 12:07
--- NOTE | 2016-09-23 12:16 | HHI.PR ---
Subjective Subjective Notes Resting in bed Non verbal Objective Vitals/I&O Vital Signs Date Time Temp Pulse Resp B/P Pulse Ox O2 Delivery O2 Flow Rate FiO2 09/23/16 10:00 87 09/23/16 08:00 97.7 31 127/73 100 09/23/16 08:00 Nasal Cannula 3.00 09/22/16 08:10 21 Labs Date/Time Procedure Status Source Growth 09/18/16 18:30 Wound Culture Ordered Catheter Tip Other Pending Cardiovascular: Regular Lungs: Clear Abdomen: Other (colostomy in place; minimal drainage medial to colostomy; applicance in place; stoma pink ) Narrative Exam generalized edema RIGHT groin with dressing from foreign body retrieval---no hematoma; area soft A/P Problem List: (1) Status post colostomy (2) Infected decubitus ulcer (3) History of CVA (cerebrovascular accident) (4) COPD (chronic obstructive pulmonary disease) (5) Neurocognitive disorder (6) Essential hypertension Assessment and Plan 61 year old female with large sacral wound; s/p colostomy placement and colostomy revision -Unsuccessful retrieval of foreign body -Colostomy in good working function with stool; appliance in place without stool leaking -Continue routine nursing colostomy care -Continue packing open area medial to colostomy -Tolerating TF -GS will follow peripherally -Spoke with RN Tiera Attending Note - Dr. Faulkner Port site wound healing well. Discussed catheter fragment situation with and explained that catheter is fixed in place and covered with tissue and will not migrate. I do not believe it is causing any of her fever/ infection issues. The exam, history, and the medical decision-making described in the above note were completed with the assistance of the mid-level provider. I reviewed and agree with the findings presented. I attest that I had a [id number] encounter with the patient on the same day, and personally performed and documented my assessment and findings in the medical record. Problem Qualifiers (1) Infected decubitus ulcer: Qualified Code: L89.95 - Infected decubitus ulcer, unstageable (2) COPD (chronic obstructive pulmonary disease): Ruma Orta Sep 23, 2016 12:16 Zechariah Faulkner MD Oct 07, 2016 23:46
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
[2016-09-23] MEDS: ENOXAPARIN SODIUM 40 MG/0.4 ML SYRINGE SQ SCH (14:32)
--- NOTE | 2016-09-23 15:58 | RADRPT ---
EXAM DATE/TIME: 09/22/2016 15:50 COMPARISON: No previous studies available for comparison. INDICATIONS : AMS.FB retrival. MEDICAL HISTORY : 1. HEP C 2.C-hep 3.CVA 4.seizures 5. Aneursyms 6. COPD 7. emphysema 8.lupus SURGICAL HISTORY : 1. aneurysm 2. trach 3. PEG 4.lt subclavian port ENCOUNTER: Initial ACUITY: 3 months PAIN SCORE: 0/10 FLUORO TIME: 33.7 minutes ACCESS SITE: Right Femoral vein SEDATION TIME: 75 minutes CONTRAST: 24 cc Omnipaque (iohexol) 350 MEDICATION(S): 1.) 3 mg midazolam (Versed) IV 2.) 150 mcg fentanyl (Sublimaze) IV DEVICE(S): 1.) Superior vena cava goose neck snare15 mm 2.) Superior vena cava Bx forceps 3.) Superior vena cava snare 12mm-20mm FINDINGS: Inferior venacavogram was performed as the sheath would not advance. This demonstrated a small weblik e stenosis which was easily passed with serial dilatation. Attempts were made at removing the implanted Csasko-y-Sldb with a loop snare, tulip snare and forceps . This was attempted both proximally and distally. The catheter is fixed to the wall it cannot be rem neli. Migration is thought to be unlikely CONCLUSION: 1. Unsuccessful port removal. Reed Rico MD on September 23, 2016 at 12:00 Board Certified Radiologist. This report was verified electronically.
[2016-09-24] VITALS (9 sets, daily range): BP systolic 96–174; BP diastolic 71–95; PULSE 85–99; RESP 20–32; TEMP 97.2–98.8; O2SAT 93–99
[2016-09-24] MEDS: POTASSIUM PHOSPHATE/SODIUM PHOSPHATE 250 MG TAB PO SCH ×5 (00:23→22:57)
[2016-09-24] MEDS: RESP: ALBUTEROL 2.5 MG/IPRATROPIUM 0.5 MG NEB (SCH) NEB ×3 (00:51→15:56)
[2016-09-24] MEDS: VANCOMYCIN 500 MG VIAL (FOR ORAL USE ONLY) PO SCH ×4 (02:21→22:41)
[2016-09-24] MEDS: hydrALAZINE HCL 25 MG TAB PO SCH ×3 (06:00→22:40)
[2016-09-24] MEDS: FREE WATER G-TUBE SCH ×3 (06:00→22:00)
[2016-09-24] MEDS: metroNIDAZOLE 500 MG TAB PO SCH ×3 (06:00→22:39)
[2016-09-24] MEDS: METOPROLOL TARTRATE 50 MG TAB GT SCH ×3 (07:00→22:40)
[2016-09-24 08:05] LABS: AUTOMATED NEUTROPHIL # 15.8 TH/MM3 (1.8-7.7); BASOPHIL % 0.2 % (0.0-2.0); EOSINOPHIL # 0.1 TH/MM3 (0-0.4); EOSINOPHIL % 0.4 % (0.0-4.0); HEMATOCRIT 24.3 % (35.0-46.0); LYMPHOCYTE # 1.1 TH/MM3 (1.0-4.8); MEAN CELL VOLUME 81.9 FL (80.0-100.0); MEAN CORPUSCULAR HEMOGLOBIN 26.5 PG (27.0-34.0); MEAN CORPUSCULAR HGB CONC 32.3 % (32.0-36.0); MONO % 6.5 % (0.0-8.0); NEUT % 86.9 % (16.0-70.0); PLATELET COUNT 585 TH/MM3 (150-450); RED BLOOD COUNT 2.97 MIL/MM3 (4.00-5.30); RED CELL DISTRIBUTION WIDTH 17.1 % (11.6-17.2); WHITE BLOOD COUNT 18.2 TH/MM3 (4.0-11.0)
[2016-09-24 08:19] LABS: HEMO FLAGS AUTO DIFF
[2016-09-24 08:28] LABS: MAGNESIUM 2.1 MG/DL (1.5-2.5); POTASSIUM 4.5 MEQ/L (3.5-5.1)
[2016-09-24] MEDS: CALAMINE/PRAMOXINE LOTION 180 ML BTL TOPICAL SCH ×2 (09:00→22:43)
[2016-09-24] MEDS: BACITRACIN TOP OINT 15 GM TUBE TOP SCH ×2 (09:00→22:42)
[2016-09-24] MEDS: BETAMETHASONE DIPROPIONATE 0.05% CREAM 15 GM TOPICAL SCH ×2 (09:00→22:43)
[2016-09-24] MEDS: SODIUM CHLORIDE 0.9% FLUSH 5 ML FLUSH IV FLUSH SCH ×2 (09:00→22:46)
[2016-09-24] MEDS: PETROLATUM 49%/ZINC OXIDE 15% 4 OUNCE TUBE TOPICAL SCH (09:00)
[2016-09-24] MEDS: LACTOBACILLUS ACIDOPHILUS TAB PO SCH ×3 (09:25→18:43)
[2016-09-24] MEDS: MULTIVITAMIN TAB PO SCH (09:25)
[2016-09-24] MEDS: LISINOPRIL 20 MG TAB PO SCH ×2 (09:25→22:39)
[2016-09-24] MEDS: POTASSIUM CL 40 MEQ/30 ML LIQ UDC GT SCH (09:25)
[2016-09-24] MEDS: PANTOPRAZOLE SOD 40 MG DELAYED RELEASE TAB PO SCH (09:25)
[2016-09-24 09:27] LABS: BANDS 7 % (0-6); METAMYELOCYTES 3 % (0-1); MYELOCYTES 2 % (0-0); NEUTROPHIL # MANUAL DIFF 17.1 TH/MM3 (1.8-7.7); PLATELET ESTIMATE SMEAR HIGH (NORMAL); PLATELET MORPHOLOGY NORMAL (NORMAL); POLYS (SEG NEUTROPHILS) 82 % (16-70); SCAN/DIFF FINAL DIFF MANUAL; WBC DIFF SAMPLE 100
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
[2016-09-24] MEDS: LACTATED RINGER'S 1000 ML INJ 1,000 ML IV SCH ×2 (11:16→22:53)
[2016-09-24] MEDS: CEFEPIME INJ 2,000 MG in SODIUM CHLORIDE 0.9% INJ 100 ML IV SCH ×2 (11:18→23:30)
[2016-09-24] MEDS: ENOXAPARIN SODIUM 40 MG/0.4 ML SYRINGE SQ SCH (15:51)
[2016-09-25] VITALS (10 sets, daily range): BP systolic 0–181; BP diastolic 0–110; PULSE 88–97; RESP 20–38; TEMP 96.9–97.7; O2SAT 97–100
[2016-09-25] MEDS: RESP: ALBUTEROL 2.5 MG/IPRATROPIUM 0.5 MG NEB (SCH) NEB ×3 (00:05→15:06)
[2016-09-25] MEDS: FREE WATER G-TUBE SCH ×3 (06:00→22:00)
[2016-09-25] MEDS: metroNIDAZOLE 500 MG TAB PO SCH ×3 (06:47→23:04)
[2016-09-25] MEDS: hydrALAZINE HCL 25 MG TAB PO SCH ×3 (06:47→23:03)
[2016-09-25] MEDS: POTASSIUM PHOSPHATE/SODIUM PHOSPHATE 250 MG TAB PO SCH ×4 (06:48→23:04)
[2016-09-25] MEDS: METOPROLOL TARTRATE 50 MG TAB GT SCH ×3 (06:48→23:04)
[2016-09-25] MEDS: LACTATED RINGER'S 1000 ML INJ 1,000 ML IV SCH ×2 (06:49→14:25)
[2016-09-25] MEDS: VANCOMYCIN 500 MG VIAL (FOR ORAL USE ONLY) PO SCH ×4 (06:49→23:04)
[2016-09-25 06:57] LABS: AUTOMATED NEUTROPHIL # 16.4 TH/MM3 (1.8-7.7); BASOPHIL % 0.2 % (0.0-2.0); EOSINOPHIL # 0.1 TH/MM3 (0-0.4); EOSINOPHIL % 0.3 % (0.0-4.0); HEMATOCRIT 27.1 % (35.0-46.0); LYMPH % 6.1 % (9.0-44.0); LYMPHOCYTE # 1.1 TH/MM3 (1.0-4.8); MEAN CELL VOLUME 82.5 FL (80.0-100.0); MEAN CORPUSCULAR HEMOGLOBIN 26.1 PG (27.0-34.0); MEAN CORPUSCULAR HGB CONC 31.6 % (32.0-36.0); MONO % 5.7 % (0.0-8.0); NEUT % 87.7 % (16.0-70.0); PLATELET COUNT 523 TH/MM3 (150-450); RED BLOOD COUNT 3.28 MIL/MM3 (4.00-5.30); RED CELL DISTRIBUTION WIDTH 17.2 % (11.6-17.2); WHITE BLOOD COUNT 18.7 TH/MM3 (4.0-11.0)
[2016-09-25 07:00] LABS: HEMO FLAGS AUTO DIFF
--- NOTE | 2016-09-25 07:01 | MP ---
cc: ANGELIQUE FAULKNER M.D. DATE OF SURGERY 09/20/2016 PROCEDURE Whsdyo-F-Teur removal. PREOPERATIVE DIAGNOSIS Infected Kvevvv-X-Ypkw. POSTOPERATIVE DIAGNOSIS Infected Cykeii-O-Bznl. ANESTHESIA Local SURGEON Angelique Faulkner MD ESTIMATED BLOOD LOSS Minimal FLUIDS None COMPLICATIONS Catheter fractured below the clavicle. The port and a portion of the catheter removed. Interventional radiology notified. The patient tolerated the procedure well. PROCEDURE IN DETAIL After obtaining informed consent the left chest was prepped and draped. The skin and subcutaneous tissue was infiltrated with local anesthetic and a transverse incision was made over the port. Dissection was carried down sharply to the port which was dissected free from the surrounding local tissues. When this was freed up, the port was pulled back to try to remove the catheter. The catheter came out for short distance and then . A distance of approximately 8 cm beyond the hub of the port was removed. The catheter appeared fractured. At this point at the level of the clavicle, a further injection was made and local wound exploration was attempted to see whether the end of the catheter could be visualized to potentially remove it from the subclavian vein. This could not be identified. At this point, the procedure was abandoned and the infraclavicular incision was closed with 3-0 Vicryl suture. The port pocket, which was then at this point hemostatic, was closed with interrupted 3-0 Vicryl suture and 5-0 PDS in a running subcuticular fashion. Both wounds were dressed with Steri-Strips. The patient tolerated the procedure well. MD WALT Linares/DJGina /6:16 PM /6:57 AM
[2016-09-25 07:09] LABS: BICARBONATE 17.8 MEQ/L (21.0-32.0); POTASSIUM 4.5 MEQ/L (3.5-5.1)
[2016-09-25 07:59] LABS: BANDS 1 % (0-6); BASOPHILS 1 % (0-2); CORRECTED NUCLEATED RBC 1 /100 WBC (0-0); METAMYELOCYTES 1 % (0-1); MYELOCYTES 5 % (0-0); NEUTROPHIL # MANUAL DIFF 17.4 TH/MM3 (1.8-7.7); PLATELET ESTIMATE SMEAR HIGH (NORMAL); PLATELET MORPHOLOGY NORMAL (NORMAL); POLYS (SEG NEUTROPHILS) 86 % (16-70); SCAN/DIFF FINAL DIFF MANUAL; WBC DIFF SAMPLE 100
[2016-09-25] MEDS: BACITRACIN TOP OINT 15 GM TUBE TOP SCH ×2 (09:00→21:00)
[2016-09-25] MEDS: BETAMETHASONE DIPROPIONATE 0.05% CREAM 15 GM TOPICAL SCH ×2 (09:00→21:00)
[2016-09-25] MEDS: PETROLATUM 49%/ZINC OXIDE 15% 4 OUNCE TUBE TOPICAL SCH (09:00)
[2016-09-25] MEDS: CALAMINE/PRAMOXINE LOTION 180 ML BTL TOPICAL SCH ×2 (09:00→21:00)
[2016-09-25] MEDS: SODIUM CHLORIDE 0.9% FLUSH 5 ML FLUSH IV FLUSH SCH ×2 (09:00→23:05)
[2016-09-25] MEDS: POTASSIUM CL 40 MEQ/30 ML LIQ UDC GT SCH (11:23)
[2016-09-25] MEDS: LISINOPRIL 20 MG TAB PO SCH ×2 (11:24→23:04)
[2016-09-25] MEDS: PANTOPRAZOLE SOD 40 MG DELAYED RELEASE TAB PO SCH (11:24)
[2016-09-25] MEDS: CEFEPIME INJ 2,000 MG in SODIUM CHLORIDE 0.9% INJ 100 ML IV SCH ×2 (11:24→23:05)
[2016-09-25] MEDS: LACTOBACILLUS ACIDOPHILUS TAB PO SCH ×3 (11:24→18:02)
[2016-09-25] MEDS: MULTIVITAMIN TAB PO SCH (11:24)
[2016-09-25] MEDS: ENOXAPARIN SODIUM 40 MG/0.4 ML SYRINGE SQ SCH (14:25)
[2016-09-25] MEDS ORDERED: FUROSEMIDE 40 MG/4 ML VIAL IV PUSH ONE (15:15)
[2016-09-25] MEDS: RESP: ALBUTEROL 2.5 MG/IPRATROPIUM 0.5 MG NEB (PRN) INH (15:32)
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
--- NOTE | 2016-09-25 16:15 | RADRPT ---
EXAM DATE/TIME: 09/25/2016 15:34 [facility] COMPARISON: CHEST SINGLE AP, September 10, 2016, 9:17. INDICATIONS : Short of breath. MEDICAL HISTORY : Hypercholesterolemia. Rheumatoid arthritis. Emphysema. CVA. Seizures. Migraines. COPD. Asthma. HTN. H epatitis C. UTI. MRSA. Cdiff. SURGICAL HISTORY : section. Brain aneurysm repair. ENCOUNTER: Subsequent ACUITY: 4 - 6 days PAIN SCORE: Non-responsive. LOCATION: Bilateral chest FINDINGS: Significant opacity is present throughout the left base. Right lung is clear. Heart and mediastinal structures are stable. Diffuse Port-A-Cath remains in place however the port itself has been removed. CONCLUSION: Left basilar airspace disease with suspected small effusion. Hari De Souza MD on September 25, 2016 at 16:13 Board Certified Radiologist. This report was verified electronically.
[2016-09-25 18:11] LABS: BLOOD GAS BASE EXCESS -9.7 mmol/L (-2-2); BLOOD GAS CARBOXYHEMOGLOBIN 1.2 % (0-4); BLOOD GAS HCO3 14 mmol/L (22-26); BLOOD GAS METHEMOGLOBIN 0.7 % (0-2); BLOOD GAS O2 HGB SATURATION 95 % (90-100); BLOOD GAS OXYGEN CONTENT 12.9 Vol % (12.0-20.0); BLOOD GAS PCO2 24 mmHg (38-42); BLOOD GAS PO2 91 mmHg (61-120); BLOOD GAS TOTAL HGB 9.6 G/DL (12.0-16.0); TEMP CORR TO 98.6
[2016-09-25 18:12] LABS: CRITICAL VALUE YES; DRAW SITE RT RADIAL; LITER FLOW 1.5 L/M; NUMBER OF ARTERIAL PUNCTURES 1; OXYGEN DEVICE NASAL CANNULA; STAT YES; ULNAR PULSE PRESENT
--- NOTE | 2016-09-25 18:36 | RADRPT ---
EXAM DATE/TIME: 09/25/2016 17:26 [facility] COMPARISON: No previous studies available for comparison. INDICATIONS : Edema. MEDICAL HISTORY : Hypercholesterolemia. Hypertension. Arthritis. COPD. Asthma. MRSA. ESBL. LUPUS. Hepitis C. SURGICAL HISTORY : section. ENCOUNTER: Sequela ACUITY: 1 day PAIN SCORE: Non-responsive LOCATION: Left leg. TECHNIQUE: Venous ultrasound of the leg was performed from the inguinal ligament to the proximal calf. Real-ngozi e, color Doppler and spectral tracing, compression and augmentation techniques were used. FINDINGS: There is normal compressibility of the deep venous system from the inguinal region to the proximal ca lf. No echogenic clot is seen in the lumen of the common femoral, femoral, popliteal, and posterior tibial veins. There is a normal response of the venous system to proximal and distal augmentation an d respiration. CONCLUSION: No DVT of the left lower extremity. Aidan Felipe MD on September 25, 2016 at 18:34 Board Certified Radiologist. This report was verified electronically.
--- NOTE | 2016-09-25 18:53 | RADRPT ---
EXAM DATE/TIME: 09/25/2016 18:39 [facility] COMPARISON: CT BRAIN W/O CONTRAST, May 31, 2016, 11:51. INDICATIONS : Altered mental status; status-post HELICAT. RADIATION DOSE: 37.12 CTDIvol (mGy) MEDICAL HISTORY : Cerebrovascular disease. Seizures. Aneurysm, intracranial.Hypertension. SURGICAL HISTORY : Intracranial aneurysm repair. ENCOUNTER: Initial ACUITY: 1 day PAIN SCALE: Non-responsive LOCATION: cranial TECHNIQUE: Multiple contiguous axial images were obtained of the head. Using automated exposure control and adj ustment of the mA and/or kV according to patient size, radiation dose was kept as low as reasonably a chievable to obtain optimal diagnostic quality images. FINDINGS: No acute intracranial hemorrhage or hematoma. No mass, mass effect or midline shift. No evidence of a n acute ischemic event. Severe, chronic White matter low attenuation again noted. There are areas of encephalomalacia of the right frontal and temporal lobes and evidence of a previous aneurysm clipping. Small areas of en cephalomalacia seen of both occipital lobes. CONCLUSION: No change. There is no bleed or other acute intracranial abnormality demonstrated. Chronic white dodie er and old ischemic and/or old traumatic changes as above. Aidan Felipe MD on September 25, 2016 at 18:49 Board Certified Radiologist. This report was verified electronically.
[2016-09-26] VITALS (17 sets, daily range): BP systolic 98–141; BP diastolic 59–89; PULSE 74–103; RESP 22–34; TEMP 93.9–98.3; O2SAT 77–100
[2016-09-26] MEDS: RESP: ALBUTEROL 2.5 MG/IPRATROPIUM 0.5 MG NEB (SCH) NEB ×4 (02:41→19:55)
[2016-09-26] MEDS: FREE WATER G-TUBE SCH ×3 (06:00→22:00)
[2016-09-26] MEDS: metroNIDAZOLE 500 MG TAB PO SCH (06:42)
[2016-09-26] MEDS: METOPROLOL TARTRATE 50 MG TAB GT SCH (06:42)
[2016-09-26] MEDS: hydrALAZINE HCL 25 MG TAB PO SCH (06:42)
[2016-09-26] MEDS: VANCOMYCIN 500 MG VIAL (FOR ORAL USE ONLY) PO SCH ×3 (06:42→20:30)
[2016-09-26] MEDS: POTASSIUM PHOSPHATE/SODIUM PHOSPHATE 250 MG TAB PO SCH ×4 (06:42→23:59)
[2016-09-26 08:32] LABS: BLOOD GAS BASE EXCESS -9.3 mmol/L (-2-2); BLOOD GAS CARBOXYHEMOGLOBIN 1.1 % (0-4); BLOOD GAS HCO3 16 mmol/L (22-26); BLOOD GAS METHEMOGLOBIN 0.7 % (0-2); BLOOD GAS O2 HGB SATURATION 91 % (90-100); BLOOD GAS OXYGEN CONTENT 11.9 Vol % (12.0-20.0); BLOOD GAS PCO2 30 mmHg (38-42); BLOOD GAS PO2 71 mmHg (61-120); BLOOD GAS TOTAL HGB 9.3 G/DL (12.0-16.0); CRITICAL VALUE YES; DRAW SITE RT RADIAL; FIO2 100 %; LITER FLOW 15 L/M; NUMBER OF ARTERIAL PUNCTURES 1; STAT YES; TEMP CORR TO 98.6; ULNAR PULSE PRESENT
[2016-09-26] MEDS: SODIUM CHLORIDE 0.9% FLUSH 5 ML FLUSH IV FLUSH SCH ×2 (09:00→21:00)
[2016-09-26] MEDS: PETROLATUM 49%/ZINC OXIDE 15% 4 OUNCE TUBE TOPICAL SCH (09:00)
[2016-09-26] MEDS ORDERED: SUCCINYLCHOLINE CHLORIDE 200 MG/10 ML VIAL ONE (09:16)
[2016-09-26] MEDS ORDERED: MIDAZOLAM HCL 5 MG/ML VIAL (1 ML) ONE (09:16)
[2016-09-26] MEDS ORDERED: ETOMIDATE 20 MG/10 ML VIAL ONE (09:16)
[2016-09-26] MEDS ORDERED: PROPOFOL 1000 MG/100 ML INJ 100 ML ONE (10:02)
[2016-09-26] MEDS ORDERED: Vancomycin Consult Pharmacy 1 EA OTHER SCH (10:15)
--- NOTE | 2016-09-26 10:27 | RADRPT ---
EXAM DATE/TIME: 09/26/2016 08:59 [facility] COMPARISON: CHEST SINGLE AP, September 25, 2016, 15:34. INDICATIONS : Respiratory failure. MEDICAL HISTORY : None. SURGICAL HISTORY : None. ENCOUNTER: Subsequent ACUITY: 4 - 6 months PAIN SCORE: Non-responsive. LOCATION: chest FINDINGS: Single AP view of the chest. Left-sided catheter in the brachiocephalic/subclavian region again seen. Left lower lung parenchymal opacity unchanged. Small left pleural effusion unchanged. No evidence of pneumothorax. Cardiomediastinal silhouette unchanged. CONCLUSION: No change in left lower lobe consolidation versus atelectasis and small left pleural effusion. Rony Espinoza MD on September 26, 2016 at 10:24 Board Certified Radiologist. This report was verified electronically.
[2016-09-26] MEDS ORDERED: PROPOFOL 1000 MG/100 ML INJ 100 ML IV SCH (10:30)
[2016-09-26] MEDS ORDERED: fentaNYL DRIP 250 ML IV SCH (10:30)
--- NOTE | 2016-09-26 10:32 | HHI.IDPN ---
Subjective Subjective Remarks is a 60 y/o CF transferred to [facility] and [facility]. She has a PMH of cerebral aneurysm repair , seizures, HTN, Hep C, tobacco abuse and is aphasic at baseline who originally presented to [facility] ED 05/31/16 with failure to thrive. She was found to have severe sepsis had decubitus ulcers on her sacrum, buttocks, heels. She underwent laparoscopic diverting colostomy 07/15/16. On 08/13 she underwent colostomy revision per Dr. Faulkner due to peristomal hernia. Patient remained in ICU was on ventilator. Had Proteus Mirabilis UTI and bacteremia during this hospitalization. She was also treated for Cdiff positive diarrhea and followed by ID . She now appears to have recurrent large volume output through her stoma, positive blood culture from 09/10/2016. ID has been consulted for evaluation and Mment of bacteremia and Cdiff. Patient transferred to [facility] again an hour back due to Halicat. Patient was noted to be having worsening mental status and difficulty protecting airway. Patient had to be intubated for airway protection. Per RN on the floor patient had increased residuals and ? vomiting. On Levophed 5 mics. Sepsis workup pending. Hypothermia, increase in WBC. Stool through ostomy site liquid. Ostomy site with redness and drainage. Has rash in the perineal area. Antibiotics PO vanco Cefepime IV Flagyl oral. Lines Line sites with no e./o infection Past Medical History Reviewed Allergies: Coded Allergies: MRI PRECAUTION (Verified Adverse Reaction, Severe, ANEURYSM CLIP PER DR. HERNANDEZHROVV-[facility]-09/08/09, 05/31/16) *MDRO Multi-Drug Resistant Organism (Verified Adverse Reaction, Unknown, MRSA, 08/18/16) MRSA (sputum) - 10/2004 & 11/2004 ESBL Klebsiella Pneumoniae ([facility]-08/14/16) Objective . Vital Signs Date Time Temp Pulse Resp B/P Pulse Ox O2 Delivery O2 Flow Rate FiO2 09/26/16 08:39 100 Non-Rebreather 15.00 09/26/16 08:19 97.2 93 34 127/78 84 09/26/16 08:17 100 15.00 100 09/26/16 04:40 97.9 96 28 116/77 96 09/26/16 00:08 98.3 103 34 139/78 96 09/25/16 21:28 Nasal Cannula 2.00 09/25/16 21:25 97.5 96 22 0/0 100 156/93 Automatic Cuff 09/25/16 20:45 98 Nasal Cannula 1.50 09/25/16 20:11 97 09/25/16 16:00 96.9 95 38 159/83 97 09/25/16 12:00 97.7 91 22 158/79 97 09/25/16 11:38 98 Nasal Cannula 1.50 09/25/16 09/25/16 09/26/16 15:00 23:00 07:00 Intake Total 0 ml 0 ml 0 ml Output Total 600 ml 250 ml 600 ml Balance -600 ml -250 ml -600 ml Intake Oral 0 ml 0 ml 0 ml Output Urine Total 600 ml 250 ml 600 ml # Bowel Movements 0 0 0 . Laboratory Tests Test 09/25/16 06:14 White Blood Count 18.7 TH/MM3 Red Blood Count 3.28 MIL/MM3 Hemoglobin 8.6 GM/DL Hematocrit 27.1 % Mean Corpuscular Volume 82.5 FL Mean Corpuscular Hemoglobin 26.1 PG Mean Corpuscular Hemoglobin 31.6 % Concent Red Cell Distribution Width 17.2 % Platelet Count 523 TH/MM3 Mean Platelet Volume 8.3 FL Neutrophils (%) (Auto) 87.7 % Lymphocytes (%) (Auto) 6.1 % Monocytes (%) (Auto) 5.7 % Eosinophils (%) (Auto) 0.3 % Basophils (%) (Auto) 0.2 % Neutrophils # (Auto) 16.4 TH/MM3 Lymphocytes # (Auto) 1.1 TH/MM3 Monocytes # (Auto) 1.1 TH/MM3 Eosinophils # (Auto) 0.1 TH/MM3 Basophils # (Auto) 0.0 TH/MM3 CBC Comment AUTO DIFF Differential Total Cells 100 Counted Neutrophils % (Manual) 86 % Band Neutrophils % 1 % Lymphocytes % 2 % Monocytes % 4 % Basophils % 1 % Neutrophils # (Manual) 17.4 TH/MM3 Metamyelocytes 1 % Myelocytes 5 % Nucleated Red Blood Cells 1 /100 WBC Differential Comment FINAL DIFF MANUAL Platelet Estimate HIGH Platelet Morphology Comment NORMAL Laboratory Tests Test 09/25/16 06:14 Sodium Level 138 MEQ/L Potassium Level 4.5 MEQ/L Chloride Level 108 MEQ/L Carbon Dioxide Level 17.8 MEQ/L Anion Gap 12 MEQ/L Blood Urea Nitrogen 32 MG/DL Creatinine 1.42 MG/DL Estimat Glomerular Filtration 38 ML/MIN Rate Random Glucose 110 MG/DL Calcium Level 8.4 MG/DL Magnesium Level 2.0 MG/DL Microbiology Date/Time Procedure Status Source Growth 09/26/16 09:50 Aerobic Blood Culture Received Blood Peripheral Pending 09/26/16 09:50 Anaerobic Blood Culture Received Blood Peripheral Pending 09/26/16 09:58 Aerobic Blood Culture Received Blood Peripheral Pending 09/26/16 09:58 Anaerobic Blood Culture Received Blood Peripheral Pending Imaging Last Impressions Chest X-Ray 08/18/16 0000 Signed Impressions: Service Date/Time: Thursday, August 18, 2016 05:18 - CONCLUSION: Interval increase in opacity in both lung bases as well as apparent bilateral effusions. The findings could indicate congestive heart failure. Zechariah Sutton MD Abdomen/Pelvis CT 08/14/16 0000 Signed Impressions: Service Date/Time: July 15:44 - CONCLUSION: 1. There is no evidence for an intraabdominal process as the cause of sepsis. 2. There is mild prominence to both collecting systems, nonspecific. Vinay Avalos MD FACR Lower Extremity Ultrasound 06/01/16 0000 Signed Impressions: Service Date/Time: Wednesday, June 01, 2016 02:44 - CONCLUSION: No evidence of lower extremity DVT on the right or left. Rony Espinoza MD Head CT 05/31/16 0000 Signed Impressions: Service Date/Time: Tuesday, May 31, 2016 11:51 - CONCLUSION: 1. 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 2. Negative for an acute process. Vinay Avalos MD FACR Physical Exam GENERAL: Awake, and responding, NAD SKIN: No jaundice, cool and dry. No rash. EYES: Pupils equal and round and reactive. No scleral icterus. No injection or drainage. ENT: .Oral mucosae moist without visible exudates CARDIOVASCULAR: HS audible. RESPIRATORY/CHEST: Decreased BS at bases GASTROINTESTINAL: Abdomen soft, moderately distended, not tender. Colostomy with liquid stool. Redness noted on medial aspect of colostomy with some drainage. GENITOURINARY: Without palpable bladder distension. Lu catheter in place. MUSCULOSKELETAL: Extremities without clubbing, cyanosis, or edema. No mottling or clubbing. NEUROLOGICAL: awake alert, responding, makes eye contact speech clear LINE: Previous port site with dry incision, has steristrips Assessment & Plan Remarks Septic Shock new. Possible new sources: aspiration pneumonia in health care setting, CAUTI, bacteremia (has port cath remnant in place). Persistent or recurrent Proteus bacteremia: ? port related cath infection (has port cath remnant in place). Intra abdominal source: possible peritonitis or abscess related to colostomy site. Aspiration PNA, HCAP. C.diff hypervirulent 027 strain Infected decubs, S/P diverting colostomy, sp revision of colostomy PLAN: Check simpson cultures. Change lu catheter. DC Cefepime IV Start Meropenem IV (ASP: prior ESBL, septic shock while on Cefepime IV) Continue Oral Flagyl for Cdiff Continue oral Vanco for Cdiff Vanco IV pharmacy consult (suspected bacteremia: has a port residual catheter in place) Start Micafungin (was on broad spectrum antibiotics at risk for fungemia.) Port Catheter in place. osmani Youngblood: suspect remaining port cath still in place. Unable to access it secondary to it being under subclavian catheter. CT chest/A/P with contrast (r/o PE, as well as intra abdominal abscess) Consider IR consult and Vascular consult if persistent Proteus bacteremia. Remnant port catheter is likely endothelialized. osmani Bermudez Critical thinking and decision making. Jennifer Rascon MD Sep 26, 2016 10:32
--- NOTE | 2016-09-26 10:39 | PD.CONS ---
[facility] Service Critical Care Medicine Consult Requested By Dr. Gonzalez Reason for Consult Acute hypoxemic respiratory failure Acute metabolic encephalopathy Severe sepsis Metabolic acidosis Primary Care Physician Unknown History of Present Illness 60-year-old female transferred to [facility] after Halicat was called due to acute hypoxemic respiratory failure and acute metabolic encephalopathy most likely secondary to severe sepsis. Patient was previously seen by critical care on August 14, 2016. Patient has past medical history significant for cerebral aneurysm repair, seizures, HTN, Hep C, tobacco abuse and is aphasic at baseline, left hemiparesis who [place] [facility] [place] with failure to thrive, sepsis, decubitus ulcers on her sacrum, buttocks, heels. Plastic surgery consulted and managed wounds with wound vac; underwent laparoscopic diverting colostomy 07/15/16. On 08/13 she underwent colostomy revision per Dr. Faulkner due to peristomal hernia. On last ICU admission for respiratory failure and hypotension was seen by Dr. Vega. Per her notes postintubation patient developed mucous plug on the R requiring therapeutic bronchoscopy. Patient was extubated and later transferred to hospitalist service next day. Had a prolonged hospital course since then complicated with multiple sepsis episodes, including gram-negative bacteremia. BAL from 08/14/16 bronchoscopy grew Proteus mirabilis, ESBL Klebsiella and MSSA which was treated in consult with ID. Blood cultures from 08/14/16 grew Proteus mirabilis. Since then other pertinent cultures were blood culture positive for Proteus on , urine culture positive for Proteus on 09/10/15. Critical care medicine was consulted today after a Halicat. Patient became more hypoxemic with sats dropping to low 80s and was placed on 100% percent nonrebreather. PO2 100% nonrebreather was only 70. I evaluated the patient once she arrived in the ICU. Patient was in respiratory distress, with an altered mental status, not responding to painful stimuli. Patient was emergently intubated and placed on mechanical ventilation. I also placed an emergent right subclavian central line. Post intubation blood pressure dropped to systolic 80s and I placed her on Levophed. I discussed case extensively with ID Dr. Rascon. Patient will be placed on Vanco, Meropenem, Flagyl and Micafungin. A CT pulmonary angiogram and CT abdomen pelvis has been ordered Review of Systems ROS Limitations: Intubated, Altered Mental Status Past Family Social History Allergies: Coded Allergies: MRI PRECAUTION (Verified Adverse Reaction, Severe, ANEURYSM CLIP PER DR. CARDONA-09/08/09, 05/31/16) *MDRO Multi-Drug Resistant Organism (Verified Adverse Reaction, Unknown, MRSA, 08/18/16) MRSA (sputum) - 10/2004 & 11/2004 ESBL Klebsiella Pneumoniae (bronc wash-08/14/16) Past Medical History HCAP 08/14/16 with ESBL Klebsiella, Proteus, MSSA Proteus bacteremia 08/14, 09/10 Proteus UTI 09/10 Essential hypertension COPD h/o cerebral aneurysm repair Seizures Hep C Tobacco abuse Past Surgical History Diverting colostomy, Colostomy revision Left subclavian port Attempted port removal 09/20/16 Cerebral aneursym repair. L wrist surgery Prior Trach, subsequently decannulated Prior PEG, removed. New PEG placed per GI. 07/07/16 Reported Medications Ventolin Hfa (Albuterol Sulfate) 8 Gm Aero 2 Puff INH Q6 Metoprolol Tartrate 100 Mg Tab 100 Mg PO BID 30 Days Active Ordered Medications Reviewed current meds Family History Unable to obtain Social History History of 1 pack per day cigarette smoking until admission Physical Exam Vital Signs Vital Signs Date Time Temp Pulse Resp B/P Pulse Ox O2 Delivery O2 Flow Rate FiO2 09/26/16 08:39 100 Non-Rebreather 15.00 09/26/16 08:19 97.2 93 34 127/78 84 09/26/16 08:17 100 15.00 100 09/26/16 04:40 97.9 96 28 116/77 96 09/26/16 00:08 98.3 103 34 139/78 96 09/25/16 21:28 Nasal Cannula 2.00 09/25/16 21:25 97.5 96 22 0/0 100 156/93 Automatic Cuff 09/25/16 20:45 98 Nasal Cannula 1.50 09/25/16 20:11 97 09/25/16 16:00 96.9 95 38 159/83 97 09/25/16 12:00 97.7 91 22 158/79 97 09/25/16 11:38 98 Nasal Cannula 1.50 Physical Exam GENERAL: Chronically ill-appearing female who is in acute respiratory distress, critically ill SKIN: Warm, HEAD: Atraumatic. Normocephalic. EYES: 4 mm reactive bilaterally. No scleral icterus. No injection or drainage. ENT: No nasal bleeding or discharge. Mucous membranes dry NECK: Trachea midline, scar from prior tracheostomy. Jugular veins flat. CARDIOVASCULAR: Tachycardic. No murmurs rubs or gallops. RESPIRATORY: Tachypneic, hypoxemic expiratory wheezes, diminished at bilateral bases GASTROINTESTINAL: Abdomen obese, soft, ostomy mucosa pink. PEG in place with site benign appearing. L hip wound vac in place : [facility] in place. MUSCULOSKELETAL: Extremities without clubbing, cyanosis. NEUROLOGICAL: Eyes are spontaneously open with a right preferred gaze. Withdraws right upper and lower extremities do not follow commands. Left hemiparesis Laboratory Laboratory Tests Test 09/25/16 09/26/16 18:06 08:15 Blood Gas Puncture Site RT RADIAL RT RADIAL Blood Gas Patient Temperature 98.6 98.6 Blood Gas HCO3 14 16 Blood Gas Base Excess -9.7 -9.3 Blood Gas Oxygen Saturation 95 91 Arterial Blood pH 7.39 7.33 Arterial Blood Partial 24 30 Pressure CO2 Arterial Blood Partial 91 71 Pressure O2 Arterial Blood Oxygen Content 12.9 11.9 Arterial Blood 1.2 1.1 Carboxyhemoglobin Arterial Blood Methemoglobin 0.7 0.7 Blood Gas Hemoglobin 9.6 9.3 Oxygen Delivery Device NASAL CANNULA Non-Rebreathing Mask Blood Gas Liter Flow 1.5 15 Blood Gas Inspired Oxygen 100 Date/Time Procedure Status Source Growth 09/26/16 09:58 Aerobic Blood Culture Received Blood Peripheral Pending 09/26/16 09:58 Anaerobic Blood Culture Received Blood Peripheral Pending Result Diagram: 09/25/1661309/25/16613 Imaging Imaging studies reviewed Septic Shock Reassessment Heart: Regular rate and rhythm Lungs: Course, Diminished Skin: Warm Peripheral Pulses: Weak Right Radial Weak Left Radial Capillary Refill: Sluggish Assessment and Plan Assessment and Plan Assessment and Plan NEURO: Acute toxic metabolic encephalopathy History of cerebral aneurysm clip in 2007 Baseline L hemiparesis and aphasia -Encephalopathy seems to be mostly metabolic -Post intubation propofol and fentanyl for sedation and ventilator synchrony, RASS -2 -Daily sedation vacation starting in 24 hours RESP: Acute hypoxemic respiratory failure Left lower lobe pneumonia/effusion History of tracheostomy COPD History of Tobacco abuse -PRVC TV 550 R 16 PEEP 10 FIO2 60%. -Wean FiO2 for sat greater than 90%. DuoNeb every 6 hours. And when necessary. -Send sputum culture -Antibiotics per ID (vancomycin, cefepime, Flagyl, micafungin) -CT pulmonary angiogram to rule out pulmonary embolism CV: Shock Essential hypertension Normal saline 2 L bolus followed by 75 ml per hour Norepinephrine to maintain mean arterial pressure greater than 65, this was rapidly titrated up to 20 mics per minute. Vasopressin added 2 D Echo 12/25/15 with EF 55-60%. Normal wall motion. Mild LVH Hold hydralazine lisinopril and metoprolol Left Kwqiat-i-Uojz extraction was attempted 09/20/16. Catheter fractured below the clavicle. Per Dr. Faulkner unable to remove the endothelialized catheter GI: C Diff colitis Dysphagia prior h/o PEG (had been removed, new PEG placed per GI 07/07/16) Diverting colostomy in 07/15/16 for sacral decubitus ulcer Hepatitis C Diverting colostomy 07/15/16. Revision 08/13/[address] abd pelvis to rule out yary-ostomy abscess, ileus Keep nothing by mouth IV Protonix FEN/RENAL: Metabolic acidemia Acute kidney injury. Moderate protein energy malnutrition [facility] in place. Monitor intake and output closely. Monitor BUN and creatinine daily, Keep urine output more than 30 mL per hour ID: Septic shock Leukocytosis New LLL HCAP Prev HCAP 08/14 with ESBL Klebsiella, MSSA, Proteus C Diff Colitis Proteus bacteremia Non stageable necrotic decubitus ulcer L buttocks - wound management per plastics /wound care UTI Currently receiving vancomycin, meropenem, Flagyl and Micafungin Pertinent cultures: 09/10 Urine Proteus 09/10 Blood Proteus 09/01 Urine C tropicalis 08/14 BAL Proteus, ESBL Klebsiella, MSSA 08/14 Blood Proteus 08/14 Urine Escherichia coli, Pseudomonas HEME: Monitor CBC U/s bilateral lower extremity negative for DVT 06/01, 09/25 US Paddy upper ext neg 09/18, repeat today CT pulmonary angiogram today ENDO: Low-dose ISS for glycemic control while on steroids, accucheck q6. Added stress dose steroids PROPH: Lovenox 40 mg subcutaneous daily. Protonix 40 mg IV daily for stress ulcer prophylaxis. ACCESS: -Port in L chest removed09/20/16-unsuccessful, catheter fractured below clavicle. SOCIAL: Neglect. DCF previously notified. CCT 90 minutes exclusive of separately billable procedures. Addendum-CT pulmonary angiogram showed multiple small right upper lobe pulmonary embolism, also bilateral pulmonary nodules, and possible gastric fundus mass. IV heparin per DVT protocol started, also consulted pulmonary. GI consult if indicated after CT abdomen pelvis Code Status Full Discussed Condition With Dr. Gonzalez, Dr. Rascon, Lashanda Sanches MD Sep 26, 2016 10:[address] Gonzalez, Dr. Rascon, Lashanda Sanches MD Sep 26, 2016 10:39
[2016-09-26 10:40] LABS: BLOOD GAS BASE EXCESS -11.6 mmol/L (-2-2); BLOOD GAS CARBOXYHEMOGLOBIN 0.8 % (0-4); BLOOD GAS HCO3 15 mmol/L (22-26); BLOOD GAS METHEMOGLOBIN 0.7 % (0-2); BLOOD GAS O2 HGB SATURATION 97 % (90-100); BLOOD GAS OXYGEN CONTENT 12.1 Vol % (12.0-20.0); BLOOD GAS PCO2 37 mmHg (38-42); BLOOD GAS PO2 156 mmHg (61-120); BLOOD GAS TOTAL HGB 8.6 G/DL (12.0-16.0); CRITICAL VALUE YES; OXYGEN DEVICE VENTILATOR; TEMP CORR TO 98.6
[2016-09-26 10:41] LABS: DRAW SITE RT RADIAL; FIO2 100 %; NUMBER OF ARTERIAL PUNCTURES 1; STAT NO; ULNAR PULSE PRESENT
[2016-09-26 11:00] LABS: BASOPHIL % 0.1 % (0.0-2.0); EOSINOPHIL # 0.1 TH/MM3 (0-0.4); EOSINOPHIL % 0.4 % (0.0-4.0); HEMATOCRIT 25.1 % (35.0-46.0); LYMPH % 6.3 % (9.0-44.0); LYMPHOCYTE # 1.4 TH/MM3 (1.0-4.8); MEAN CELL VOLUME 82.7 FL (80.0-100.0); MEAN CORPUSCULAR HEMOGLOBIN 26.3 PG (27.0-34.0); MEAN CORPUSCULAR HGB CONC 31.8 % (32.0-36.0); MONO % 5.6 % (0.0-8.0); NEUT % 87.6 % (16.0-70.0); PLATELET COUNT 587 TH/MM3 (150-450); RED BLOOD COUNT 3.03 MIL/MM3 (4.00-5.30); RED CELL DISTRIBUTION WIDTH 17.9 % (11.6-17.2); WHITE BLOOD COUNT 21.7 TH/MM3 (4.0-11.0)
[2016-09-26] MEDS ORDERED: TERBUTALINE INJ 1 MG/ML AMP SQ PRN (11:00)
[2016-09-26] MEDS ORDERED: SODIUM BICARBONATE 8.4% INJ 50 MEQ/50 ML SYR IV PUSH ONE (11:00)
[2016-09-26 11:01] LABS: HEMO FLAGS AUTO DIFF
--- NOTE | 2016-09-26 11:11 | RADRPT ---
EXAM DATE/TIME: 09/26/2016 10:35 [facility] COMPARISON: CHEST SINGLE AP, September 26, 2016, 8:59. INDICATIONS : Evaluate post intubation and central line placement. MEDICAL HISTORY : None. SURGICAL HISTORY : None. ENCOUNTER: Initial ACUITY: 1 day PAIN SCORE: Non-responsive. LOCATION: Bilateral chest FINDINGS: Compared to the prior exam there has been interval placement of a right subclavian central venous cat heter and endotracheal tube. Both are in good position. Right lung remains well expanded without evidence of pneumothorax. Mild atelectasis is seen in the ri ght base. Left basilar airspace disease and pleural effusion are still present. CONCLUSION: Interval placement of endotracheal tube and right supine and central venous catheter which are in goo d position. No evidence of pneumothorax. Bibasilar airspace disease as described. Hari De Souza MD on September 26, 2016 at 11:08 Board Certified Radiologist. This report was verified electronically.
[2016-09-26 11:26] LABS: ANION GAP 12 MEQ/L (5-15); AST (GOT) 20 U/L (15-37); BICARBONATE 17.3 MEQ/L (21.0-32.0); BLOOD UREA NITROGEN 32 MG/DL (7-18); CHLORIDE 110 MEQ/L (98-107); GLOMERULAR FILTRATION RATE 33 ML/MIN (>89); POTASSIUM 4.3 MEQ/L (3.5-5.1); SODIUM (NA) 139 MEQ/L (136-145)
[2016-09-26 11:29] LABS: ALKALINE PHOSPHATASE 91 U/L (45-117); ALT (GPT) 13 U/L (10-53); TOTAL BILIRUBIN ADULT 0.3 MG/DL (0.2-1.0)
[2016-09-26 11:30] LABS: BANDS 14 % (0-6); METAMYELOCYTES 1 % (0-1); MYELOCYTES 9 % (0-0); NEUTROPHIL # MANUAL DIFF 20.8 TH/MM3 (1.8-7.7); POLYS (SEG NEUTROPHILS) 71 % (16-70); PROMYELOCYTES 1 % (0-0); WBC DIFF SAMPLE 100
[2016-09-26] MEDS ORDERED: MISCELLANEOUS PHARMACY INFORMATION XX PRN (11:30)
[2016-09-26] MEDS ORDERED: ASP: Path resistant to other antimicrobials, culture proven XX PRN (11:30)
[2016-09-26 11:33] LABS: PLATELET ESTIMATE SMEAR HIGH (NORMAL); PLATELET MORPHOLOGY NORMAL (NORMAL); SCAN/DIFF FINAL DIFF MANUAL
[2016-09-26] MEDS: VASOPRESSIN INJ 40 UNITS in DEXTROSE 5% IN WATER 100ML INJ 98 ML IV SCH ×2 (11:40)
[2016-09-26] MEDS ORDERED: DIATRIZOATE MEGLUM/DIATRIZOATE SOD 9 ML CUP PO ONE (11:45)
[2016-09-26] MEDS: metroNIDAZOLE 500 MG INJ 100 ML IV SCH ×2 (11:58→20:30)
[2016-09-26] MEDS ORDERED: HYDROCORTISONE SOD SUCCINATE 100 MG VIAL IV ONE (12:00)
[2016-09-26] MEDS: MEROPENEM INJ 500 MG in SODIUM CHLORIDE 0.9% INJ 100 ML IV SCH ×2 (12:00→20:33)
[2016-09-26 13:15] LABS: BLOOD, URINE LARGE (NEG); GLUCOSE,URINE NEG (NEG); KETONE, URINE TRACE mg/dL (NEG); NITRITE,URINE NEG (NEG); PH, URINE 6.5 (5.0-8.5); URINE COLOR YELLOW (YELLW/STRAW)
[2016-09-26 13:19] LABS: GRANULAR CAST, URINE 0-2 /lpf; SQUAMOUS EPITHELIAL CELL URINE 0-5 /hpf (0-5)
[2016-09-26 13:21] LABS: BACTERIA, URINE RARE /hpf
[2016-09-26 13:22] LABS: COMMENT (UR) CATH-CULTURE IND; CULTURE IF INDICATED CATH CULTURE IND
[2016-09-26] MEDS: PANTOPRAZOLE SODIUM 40 MG VIAL IV PUSH SCH (13:30)
[2016-09-26] MEDS: VANCOMYCIN 1,000 MG/NS 250 ML IV SCH ×2 (13:30)
--- NOTE | 2016-09-26 14:31 | HHI.PR ---
Subjective Subjective Notes Intubated/Sedated Objective Vitals/I&O Vital Signs Date Time Temp Pulse Resp B/P Pulse Ox O2 Delivery O2 Flow Rate FiO2 09/26/16 11:15 98 100 09/26/16 08:39 Non-Rebreather 15.00 09/26/16 08:19 97.2 93 34 127/78 Labs Laboratory Tests Test 09/25/16 09/26/16 09/26/16 09/26/16 18:06 08:15 10:27 10:35 Blood Gas Puncture Site RT RADIAL RT RADIAL RT RADIAL Blood Gas Patient Temperature 98.6 98.6 98.6 Blood Gas HCO3 14 16 15 Blood Gas Base Excess -9.7 -9.3 -11.6 Blood Gas Oxygen Saturation 95 91 97 Arterial Blood pH 7.39 7.33 7.22 Arterial Blood Partial 24 30 37 Pressure CO2 Arterial Blood Partial 91 71 156 Pressure O2 Arterial Blood Oxygen Content 12.9 11.9 12.1 Arterial Blood 1.2 1.1 0.8 Carboxyhemoglobin Arterial Blood Methemoglobin 0.7 0.7 0.7 Blood Gas Hemoglobin 9.6 9.3 8.6 Oxygen Delivery Device NASAL CANNULA Non-Rebreathing VENTILATOR Mask Blood Gas Liter Flow 1.5 15 Blood Gas Inspired Oxygen 100 100 Blood Gas Ventilator Setting PRVC/14/500/+10/1.0 White Blood Count 21.7 Red Blood Count 3.03 Hemoglobin 8.0 Hematocrit 25.1 Mean Corpuscular Volume 82.7 Mean Corpuscular Hemoglobin 26.3 Mean Corpuscular Hemoglobin 31.8 Concent Red Cell Distribution Width 17.9 Platelet Count 587 Mean Platelet Volume 8.2 Neutrophils (%) (Auto) 87.6 Lymphocytes (%) (Auto) 6.3 Monocytes (%) (Auto) 5.6 Eosinophils (%) (Auto) 0.4 Basophils (%) (Auto) 0.1 Neutrophils # (Auto) 19.0 Lymphocytes # (Auto) 1.4 Monocytes # (Auto) 1.2 Eosinophils # (Auto) 0.1 Basophils # (Auto) 0.0 CBC Comment AUTO DIFF Differential Total Cells 100 Counted Neutrophils % (Manual) 71 Band Neutrophils % 14 Lymphocytes % 3 Monocytes % 1 Neutrophils # (Manual) 20.8 Metamyelocytes 1 Myelocytes 9 Promyelocytes 1 Differential Comment FINAL DIFF MANUAL Platelet Estimate HIGH Platelet Morphology Comment NORMAL Sodium Level 139 Potassium Level 4.3 Chloride Level 110 Carbon Dioxide Level 17.3 Anion Gap 12 Blood Urea Nitrogen 32 Creatinine 1.61 Estimat Glomerular Filtration 33 Rate Random Glucose 104 Lactic Acid Level 0.7 Calcium Level 7.9 Total Bilirubin 0.3 Aspartate Amino Transf 20 (AST/SGOT) Alanine Aminotransferase 13 (ALT/SGPT) Alkaline Phosphatase 91 Ammonia LESS THAN 10 Total Protein 6.3 Albumin 1.3 Test 09/26/16 12:45 Urine Color YELLOW Urine Turbidity Slightly Urine pH 6.5 Urine Specific Cranberry 1.009 Urine Protein 100 Urine Glucose (UA) NEG Urine Ketones TRACE Urine Occult Blood LARGE Urine Nitrite NEG Urine Bilirubin NEG Urine Urobilinogen 0.2 Urine Leukocyte Esterase TRACE Urine RBC 10-14 Urine WBC 6-8 Urine WBC Clumps RARE Urine Squamous Epithelial 0-5 Cells Urine Bacteria RARE Urine Granular Casts 0-2 Microscopic Urinalysis Comment CATH-CULTURE IND Date/Time Procedure Status Source Growth 09/26/16 12:45 Urine Culture Received Urine Catheterized Urine Pending 09/26/16 12:45 Gram Stain Received Sputum Endotracheal Pending 09/26/16 12:45 Sputum Culture Received Sputum Endotracheal Pending 09/26/16 09:58 Aerobic Blood Culture Received Blood Peripheral Pending 09/26/16 09:58 Anaerobic Blood Culture Received Blood Peripheral Pending Cardiovascular: Regular Lungs: Clear Abdomen: Other (colostomy in place; medial to applicance there is an open area but with minimal drainage ) Narrative Exam generalized edema A/P Problem List: (1) Status post colostomy (2) Infected decubitus ulcer (3) History of CVA (cerebrovascular accident) (4) COPD (chronic obstructive pulmonary disease) (5) Neurocognitive disorder (6) Essential hypertension Assessment and Plan 61 year old female with large sacral wound; s/p colostomy placement and colostomy revision -Mrs. Garcia transferred to [facility] and now intubated and on pressors -CT abd/pelvis + CT angio today when stable -Colostomy in good working function with stool; appliance in place without stool leaking -Continue routine nursing colostomy care -Continue packing open area medial to colostomy -Spoke with MODESTO Man at bedside Attending Note Spoke with ; he still wishes all effort to be made. Needs CT to assess abdomen. The exam, history, and the medical decision-making described in the above note were completed with the assistance of the mid-level provider. I reviewed and agree with the findings presented. I attest that I had a [id number] encounter with the patient on the same day, and personally performed and documented my assessment and findings in the medical record. Problem Qualifiers (1) Infected decubitus ulcer: Qualified Code: L89.95 - Infected decubitus ulcer, unstageable (2) COPD (chronic obstructive pulmonary disease): Ruma Orta Sep 26, 2016 14:31 Zechariah Faulkner MD Oct 07, 2016 23:57
[2016-09-26] MEDS ORDERED: IODIXANOL 320 MG/ML 10 ML VIAL (for Rad CT) IV ONE (15:28)
--- NOTE | 2016-09-26 15:53 | RADRPT ---
EXAM DATE/TIME: 09/26/2016 15:12 [facility] COMPARISON: CT ABDOMEN & PELVIS W CONTRAST, September 26, 2016, 15:12. INDICATIONS : Spesis. Evaluate for emboli. IV CONTRAST: 50 cc Visipaque (iodixanol) IV ; Cumulative dose for multiple exams. RADIATION DOSE: 14.40 CTDIvol (mGy) MEDICAL HISTORY : Cardiovascular disease. Hypertension. Hepatitis C. SURGICAL HISTORY : section. ENCOUNTER: Initial ACUITY: 1 day PAIN SCALE: Non-responsive LOCATION: chest TECHNIQUE: Volumetric scanning of the chest was performed using a pulmonary embolism protocol MIP images were re constructed. Using automated exposure control and adjustment of the mA and/or kV according to patien t size, radiation dose was kept as low as reasonably achievable to obtain optimal diagnostic quality images. FINDINGS: PULMONARY ARTERIES: Several small filling defects in anterior segmental branches of the right upper lobe. LUNGS: 1.6 cm nodule in the posterior right upper lobe. 7 mm nodule in the central right upper lobe. 7 mm no dular density in the right lower lobe on image #57. 7 mm nodular density in the medial right lower lo be on image #53. 6 mm nodular density in the superior segment of the right lower lobe on image #45. 9 mm nodular density in the right upper lobe on image #34. 5 mm nodular density in the right upper lob e on image #36. 3 mm nodular density in the left upper lobe on image #33. 5 mm nodular density in the left lower lobe on image #50. Bilateral dependent lower lobe atelectasis. Bilateral mild pulmonary p arenchymal emphysema. Bronchial plugging in the right lower lobe. PLEURAE: Small left pleural effusion. MEDIASTINUM: Mildly prominent right hilar lymph node measuring 1.6 x 1.2 cm. Coronary artery calcifications. MUSCULOSKELETAL: Within normal limits for patient age. MISCELLANEOUS: Multiple subcentimeter axillary lymph nodes bilaterally. Abdomen will be fully described on abdomen C T report. There is a possible mass in the medial gastric fundus. CONCLUSION: 1. Several small pulmonary emboli in the right upper lobe. 2. Multiple bilateral pulmonary parenchymal nodules. Both neoplastic and inflammatory etiologies are in the differential diagnosis. 3. Mildly prominent right hilar lymph node, likely reactive. 4. Bilateral lower lobe atelectasis and small left pleural effusion. 5. Possible mass in the medial gastric fundus. Rony Espinoza MD on September 26, 2016 at 15:38 Board Certified Radiologist. This report was verified electronically.
--- NOTE | 2016-09-26 16:06 | RADRPT ---
EXAM DATE/TIME: 09/26/2016 15:12 [facility] COMPARISON: CT ABDOMEN & PELVIS W/O CONTRAST, August 14, 2016, 15:44. INDICATIONS: Evaluate for periostomy abscess. IV CONTRAST: 50 cc Visipaque (iodixanol) IV ; Cumulative dose for multiple exams. ORAL CONTRAST: Prescribed oral contrast ingested. RADIATION DOSE: 17.91 CTDIvol (mGy) MEDICAL HISTORY: Cardiovascular disease. Hypertension. Hepatitis C. SURGICAL HISTORY: section. ENCOUNTER: Initial ACUITY: 1 day PAIN SCALE: Non-responsive LOCATION: Abdomen TECHNIQUE: Volumetric scanning of the abdomen and pelvis was performed. Using automated exposure control and ad justment of the mA and/or kV according to patient size, radiation dose was kept as low as reasonably achievable to obtain optimal diagnostic quality images. FINDINGS: There are minimal patchy areas of consolidation in the right lower lobe with a small left pleural eff usion. There is a trace amount of ascites evident. The liver is free of focal defects. Single gallstone is evident. G-tube is present. There is moderate induration around the pancreas including the head of the pancreas. This has progre ssed in the interval. Kidneys are unremarkable. There is a large hernia in the left rectus associated with the colostomy. There is mild induration e vident but no abscess. Trace fluid is evident. Bladder is decompressed by Udke. CONCLUSION: 1. Increasing evidence for pancreatitis. Correlation is suggested. 2. Large hernia associated with the ostomy without abscess. Vinay Avalos MD FACR on September 26, 2016 at 15:30 Board Certified Radiologist. This report was verified electronically.
[2016-09-26] MEDS: LACTOBACILLUS ACIDOPHILUS TAB PO SCH ×2 (17:15→17:30)
[2016-09-26 18:03] LABS: HEMATOCRIT 26.7 % (35.0-46.0); MEAN CELL VOLUME 83.5 FL (80.0-100.0); MEAN CORPUSCULAR HEMOGLOBIN 25.8 PG (27.0-34.0); MEAN CORPUSCULAR HGB CONC 30.9 % (32.0-36.0); PLATELET COUNT 789 TH/MM3 (150-450); RED CELL DISTRIBUTION WIDTH 18.1 % (11.6-17.2); REVIEW FLAG FINAL; WHITE BLOOD COUNT 36.6 TH/MM3 (4.0-11.0)
--- NOTE | 2016-09-26 18:04 | PD.PROCEDR ---
Procedure Note Procedure PROCEDURE: Endotracheal intubation INDICATION: Acute respiratory failure DETAILS OF PROCEDURE: The patient was placed in optimal position and preoxygenated with 100% FiO2 via [id number]. The patient was administered etomidate 20 mg IV, Versed 5 mg IV for sedation and rocuronium 50 mg IV. Laryngoscopy was performed with a DL MAC 4 blade Grade 1 view. On single attempt a size 8 endotracheal tube was visualized passing through the cords. Correct placement was confirmed with colorimetric CO2 detector. Breath sounds equal bilaterally. Chest x-ray pending Lashanda Bermudez MD Sep 26, 2016 18:04
--- NOTE | 2016-09-26 18:06 | PD.PROCEDR ---
Central Line Procedure REASON FOR PROCEDURE Central venous access PROCEDURE PERFORMED Central line placement: Right subclavian ANESTHESIA Local injection of 1% Lidocaine DESCRIPTION OF THE PROCEDURE The patient was placed in supine, mild Trendelenburg position. The area was exposed and cleansed with ChloraPrep, times two. Large sterile drape was used to cover the patient, with the site exposed, under sterile conditions including cap, face mask, sterile gown, and sterile gloves. On single attempt, the introducer needle was inserted with negative pressure in syringe and venous flash was obtained. The guide wire was then advanced without any restriction and the needle was removed. The dilator was used without any complications. Using Seldinger technique the 20 CM 7F triple lumen catheter was advanced over the guide wire to a depth of 16 centimeters. The guide wire was removed. All ports were aspirated with dark venous blood return and flushed easily with sterile saline. All ports were capped. Antibiotic disc was placed around central line at puncture site. The central line was secured to the skin with two interrupted 2.0 silk sutures. The area was bandaged with sterile see- through central line bandage. COMPLICATIONS: No apparent complications ESTIMATED BLOOD LOSS: Less than 1 cc. Lashanda Bermudez MD Sep 26, 2016 18:06
[2016-09-26 18:15] LABS: APTT (PATIENT) 40.4 SEC (24.3-30.1); INTERNATIONAL NORMALIZED RATIO 1.7 RATIO; PROTHROMBIN TIME - PATIENT 19.4 SEC (9.8-11.6)
[2016-09-26] MEDS: HEPARIN-D5W INJ 250 ML IV SCH (18:39)
[2016-09-26] MEDS: CHLORHEXIDINE 0.12% (ORAL KIT) 15 ML CUP MT SCH (20:30)
[2016-09-26] MEDS: NOREPINEPHRINE-DEXTROSE DRIP 250 ML IV SCH (20:30)
[2016-09-26] MEDS ORDERED: HEPARIN SODIUM - IV 10,000 UNITS/10 ML VIAL IV PRN ×2 (22:15)
[2016-09-27] VITALS (21 sets, daily range): BP systolic 109–175; BP diastolic 55–86; PULSE 73–122; RESP 22–27; TEMP 95.7–101.5; O2SAT 96–100
--- NOTE | 2016-09-27 01:00 | RADRPT ---
EXAM DATE/TIME: 09/26/2016 20:17 [facility] COMPARISON: No previous studies available for comparison. INDICATIONS : Edema. MEDICAL HISTORY : Hypertension. Hypercholesterolemia. Chronic obstructive pulmonary disease. Aneursyms. Cerebrovascular accident. Seizures. Migraines. Emphysema. Asthma. Rheumatiod Arthitis. Lupus. Hepatitis C. Clostri dium difficile. MRSA. SURGICAL HISTORY : section. Aneursym repair. ENCOUNTER: Subsequent ACUITY: 1 day PAIN SCORE: Non-responsive LOCATION: Bilateral arms FINDINGS: RIGHT UPPER EXTREMITY: There is spontaneous flow documented in the brachial, basilic, cephalic, axillary, and subclavian vei ns. The vessels are compressible and augmentation response is documented. No filling defects are se en. The flow is phasic with respiration. Direction of flow in the jugular vein is caudal. LEFT UPPER EXTREMITY: There is spontaneous flow documented in the brachial, basilic, axillary, and subclavian veins. The c ephalic vein is not visualized. The vessels are compressible and augmentation response is documented. No filling defects are seen. The flow is phasic with respiration. Direction of flow in the jugula r vein is caudal. CONCLUSION: No DVT or superficial venous thrombosis is identified within either upper extremity. Please note that the left cephalic vein is not visualized. Aidan Churchill MD on September 27, 2016 at 0:58 Board Certified Radiologist. This report was verified electronically.
[2016-09-27 01:30] LABS: APTT (PATIENT) 95.5 SEC (24.3-30.1)
[2016-09-27] MEDS: VANCOMYCIN 500 MG VIAL (FOR ORAL USE ONLY) PO SCH ×4 (01:59→21:15)
[2016-09-27 03:25] LABS: APTT (PATIENT) 56.8 SEC (24.3-30.1)
[2016-09-27] MEDS: MEROPENEM INJ 500 MG in SODIUM CHLORIDE 0.9% INJ 100 ML IV SCH ×3 (03:43→21:14)
[2016-09-27] MEDS: NOREPINEPHRINE-DEXTROSE DRIP 250 ML IV SCH (04:06)
[2016-09-27] MEDS: metroNIDAZOLE 500 MG INJ 100 ML IV SCH ×3 (04:06→21:14)
[2016-09-27] MEDS: RESP: ALBUTEROL 2.5 MG/IPRATROPIUM 0.5 MG NEB (SCH) NEB ×4 (04:23→20:27)
[2016-09-27 04:48] LABS: AUTOMATED NEUTROPHIL # 33.9 TH/MM3 (1.8-7.7); BASOPHIL # 0.1 TH/MM3 (0-0.2); BASOPHIL % 0.2 % (0.0-2.0); EOSINOPHIL # 0.3 TH/MM3 (0-0.4); EOSINOPHIL % 0.9 % (0.0-4.0); HEMATOCRIT 26.2 % (35.0-46.0); LYMPHOCYTE # 1.5 TH/MM3 (1.0-4.8); MEAN CELL VOLUME 82.9 FL (80.0-100.0); MEAN CORPUSCULAR HGB CONC 31.3 % (32.0-36.0); MONO % 4.7 % (0.0-8.0); NEUT % 90.2 % (16.0-70.0); PLATELET COUNT 795 TH/MM3 (150-450); RED BLOOD COUNT 3.16 MIL/MM3 (4.00-5.30); RED CELL DISTRIBUTION WIDTH 17.9 % (11.6-17.2); WHITE BLOOD COUNT 37.6 TH/MM3 (4.0-11.0)
[2016-09-27 04:52] LABS: HEMO FLAGS AUTO DIFF
[2016-09-27 05:12] LABS: APTT (PATIENT) 42.4 SEC (24.3-30.1)
[2016-09-27] MEDS: POTASSIUM PHOSPHATE/SODIUM PHOSPHATE 250 MG TAB PO SCH ×4 (06:45→22:44)
[2016-09-27] MEDS: FREE WATER G-TUBE SCH ×3 (07:00→21:16)
--- NOTE | 2016-09-27 08:37 | HHI.CCPN ---
Subjective Remarks/Hospital Course 60-year-old female transferred to [facility] after Halicat was called due to acute hypoxemic respiratory failure and acute metabolic encephalopathy most likely secondary to severe sepsis. Patient was previously seen by critical care on August 14, 2016. Patient has past medical history significant for cerebral aneurysm repair, seizures, HTN, Hep C, tobacco abuse and is aphasic at baseline, left hemiparesis who originally presented to [facility] on 05/31/16 with failure to thrive, sepsis, decubitus ulcers on her sacrum, buttocks, heels. Plastic surgery consulted and managed wounds with wound vac; underwent laparoscopic diverting colostomy 07/15/16. On 08/13 she underwent colostomy revision per Dr. Faulkner due to peristomal hernia. On last ICU admission for respiratory failure and hypotension was seen by Dr. Vega. Per her notes postintubation patient developed mucous plug on the R requiring therapeutic bronchoscopy. Patient was extubated and later transferred to hospitalist service next day. Had a prolonged hospital course since then complicated with multiple sepsis episodes, including gram-negative bacteremia. BAL from 08/14/16 bronchoscopy grew Proteus mirabilis, ESBL Klebsiella and MSSA which was treated in consult with ID. Blood cultures from 08/14/16 grew Proteus mirabilis. Since then other pertinent cultures were blood culture positive for Proteus on , urine culture positive for Proteus on 09/10/15. Critical care medicine was consulted today after a Halicat. Patient became more hypoxemic with sats dropping to low 80s and was placed on 100% percent nonrebreather. PO2 on 100% nonrebreather was only 70. I evaluated the patient once she arrived in the ICU. Patient was in respiratory distress, with an altered mental status, not responding to painful stimuli. Patient was emergently intubated and placed on mechanical ventilation. I also placed an emergent right subclavian central line. Post intubation blood pressure dropped to systolic 80s and I placed her on Levophed. I discussed case extensively with ID Dr. Rascon. Patient will be placed on Vanco, Meropenem, Flagyl and Micafungin. A CT pulmonary angiogram and CT abdomen pelvis has been ordered SUBJ 09/27: Emergently intubated and placed on mechanical ventilation yesterday for acute hypoxemic respiratory failure, failure to protect airway. CT pulmonary angiogram showed right upper lobe pulmonary emboli, multiple pulmonary nodules infectious versus inflammatory versus malignant, and possible gastric fundus mass. CT abdomen and pelvis showed evidence of acute pancreatitis and large yary-ileostomy hernia. Patient remains in septic shock on Levophed and vasopressin. Chemistry pending today Objective Vital Signs Date Time Temp Pulse Resp B/P Pulse Ox O2 Delivery O2 Flow Rate FiO2 09/27/16 08:17 99 50 09/27/16 06:00 95 09/27/16 04:00 101.5 27 109/64 09/26/16 19:00 Mechanical Ventilator 09/26/16 08:39 15.00 Intake and Output 09/26/16 09/26/16 09/27/16 08:00 16:00 00:00 Intake Total 0 ml 0 ml 3732 ml Output Total 600 ml 400 ml 500 ml Balance -600 ml -400 ml 3232 ml Result Diagram: 09/27/16 0425 09/26/16 1035 Other Results Laboratory Tests Test 09/26/16 10:27 Blood Gas Puncture Site RT RADIAL Blood Gas Patient Temperature 98.6 Blood Gas HCO3 15 mmol/L (22-26) Blood Gas Base Excess -11.6 mmol/L (-2-2) Blood Gas Oxygen Saturation 97 % (90-100) Arterial Blood pH 7.22 (7.380-7.420) Arterial Blood Partial 37 mmHg (38-42) Pressure CO2 Arterial Blood Partial 156 mmHg Pressure O2 (61-120) Arterial Blood Oxygen Content 12.1 Vol % (12.0-20.0) Arterial Blood 0.8 % (0-4) Carboxyhemoglobin Arterial Blood Methemoglobin 0.7 % (0-2) Blood Gas Hemoglobin 8.6 G/DL (12.0-16.0) Oxygen Delivery Device VENTILATOR Blood Gas Ventilator Setting PRVC/14/500/+10/1.0 Blood Gas Inspired Oxygen 100 % Imaging Imaging studies reviewed Objective Remarks GENERAL: Chronically ill-appearing female who is intubated, appears critically ill SKIN: Warm, HEAD: Atraumatic. Normocephalic. EYES: 4 mm reactive bilaterally. No scleral icterus. No injection or drainage. ENT: No nasal bleeding or discharge. Mucous membranes dry, orotracheally intubated NECK: Trachea midline, scar from prior tracheostomy. Jugular veins flat. CARDIOVASCULAR: Tachycardic. No murmurs rubs or gallops. On 0.04 international units of vasopressin, and 6 mcg/m of Levophed RESPIRATORY: Air entry diminished bilaterally with few coarse rhonchi, scattered wheezes GASTROINTESTINAL: Abdomen obese, soft, ostomy mucosa pink. PEG in place with site benign appearing. L hip wound vac in place. Large hernia associated with colostomy : [facility] in place. MUSCULOSKELETAL: Extremities without clubbing, cyanosis. NEUROLOGICAL: Eyes are spontaneously open. Withdraws right upper and lower extremities do not follow commands. Left hemiparesis Procedures PEG Colostomy 08/28- revision colostomy , repair of parastomal hernia Date of Insertion: Aug 29, 2016 A/P Assessment and Plan Assessment and Plan NEURO: Acute toxic metabolic encephalopathy History of cerebral aneurysm clip in 2007 Baseline L hemiparesis and aphasia -Encephalopathy seems to be mostly metabolic -Post intubation propofol and fentanyl for sedation and ventilator synchrony, RASS -2 -Daily sedation vacation starting in 24 hours RESP: Acute hypoxemic respiratory failure Right upper lobe pulmonary embolism Multiple bilateral pulmonary nodules Left lower lobe pneumonia/effusion/HCAP History of tracheostomy COPD, History of Tobacco abuse -PRVC TV 550 R 16 PEEP 10 FIO2 40%. Reduce PEEP to 5 -Wean FiO2 for sat greater than 90%. DuoNeb every 6 hours. And when necessary. -IV Heparin PE protocol -Send sputum culture -Antibiotics per ID (vancomycin, Meropenem, Flagyl, micafungin) -Pulmonary consulted CV: Septic shock -Normal saline 3 L bolus 2/3 and continue NS 75 ml per hour -Norepinephrine, Vasopressin to maintain mean arterial pressure greater than 65. Stress dose hydrocortisone -2 D Echo 12/25/15 with EF 55-60%. Normal wall motion. Mild LVH -Hold hydralazine lisinopril and metoprolol -Left Jhyeod-r-Zeqe extraction was attempted 09/20/16. Catheter fractured below the clavicle. -Per Dr. Faulkner unable to remove the endothelialized catheter GI: C Diff colitis Acute pancreatitis Probable gastric fundus mass Dysphagia prior h/o PEG (had been removed, new PEG placed per GI 07/07/16) Diverting colostomy in 07/15/16 for sacral decubitus ulcer Hepatitis C -GI consulted for acute pancreatitis and probable gastric fundus mass -On IV Flagyl for C. difficile colitis, add Fidaxomicin -Diverting colostomy 07/15/16. Revision 08/13/[address] Faulkner. -NPO except meds -IV Protonix FEN/RENAL: Metabolic acidemia Acute kidney injury. Moderate protein energy malnutrition -[facility] in place. Monitor intake and output closely. -Monitor BUN and creatinine daily, Keep urine output more than 30 mL per hour -IV Albumin 25 gm q12 09/27-09/29, NS at 75 ml per hour ID: Septic shock New LLL HCAP C Diff Colitis Prev HCAP 08/14 with ESBL Klebsiella, MSSA, Proteus Proteus bacteremia 08/14 and 09/20 Non stageable necrotic decubitus ulcer L buttocks - wound management per plastics /wound care UTI -Currently receiving vancomycin, meropenem, Flagyl and Micafungin -Add Fidaxomicin 09/27 Pertinent cultures: 09/26 blood urine and sputum cultures are pending 09/10 Urine Proteus 09/10 Blood Proteus 09/01 Urine C tropicalis 08/14 BAL Proteus, ESBL Klebsiella, MSSA 08/14 Blood Proteus 08/14 Urine Escherichia coli, Pseudomonas HEME: Acute PE -Continue IV heparin -Monitor CBC -U/s bilateral lower extremity negative for DVT 06/01, 09/25 -US Paddy upper ext neg 09/18, repeat ordered ENDO: -Low-dose ISS for glycemic control while on steroids, accucheck q6. -Stress dose steroids PROPH: -IV. Protonix 40 mg IV daily for stress ulcer prophylaxis. ACCESS: -Port in L chest removed09/20/16-unsuccessful, catheter fractured below clavicle. -R subclavian central line placed 09/26/16 SOCIAL: -DCF previously notified for neglect CCT 60 minutes exclusive of separately billable procedures. Lashanda Bermudez MD Sep 27, 2016 08:37
[2016-09-27] MEDS: PETROLATUM 49%/ZINC OXIDE 15% 4 OUNCE TUBE TOPICAL SCH (09:00)
[2016-09-27] MEDS: MULTIVITAMIN TAB PO SCH (09:00)
[2016-09-27] MEDS: FIDAXOMICIN 200 MG TAB PO SCH ×2 (09:00→21:00)
[2016-09-27] MEDS: POTASSIUM CL 40 MEQ/30 ML LIQ UDC GT SCH (09:00)
[2016-09-27] MEDS: BACITRACIN TOP OINT 15 GM TUBE TOP SCH ×2 (09:00→21:00)
[2016-09-27] MEDS: BETAMETHASONE DIPROPIONATE 0.05% CREAM 15 GM TOPICAL SCH ×2 (09:00→21:00)
[2016-09-27] MEDS: CALAMINE/PRAMOXINE LOTION 180 ML BTL TOPICAL SCH ×2 (09:00→21:00)
[2016-09-27] MEDS: SODIUM CHLORIDE 0.9% FLUSH 5 ML FLUSH IV FLUSH SCH ×2 (09:00→21:15)
--- NOTE | 2016-09-27 09:05 | RADRPT ---
EXAM DATE/TIME: 09/27/2016 08:51 [place] COMPARISON: CHEST SINGLE AP, September 26, 2016, 10:35. INDICATIONS : Evaluate for respiratory disease. MEDICAL HISTORY : None. SURGICAL HISTORY : None. ENCOUNTER: Subsequent ACUITY: 4 - 6 days PAIN SCORE: Non-responsive. LOCATION: chest FINDINGS: A single view of the chest demonstrates minimal bibasilar subsegmental atelectasis greater the left l ower lobe. Endotracheal tube, left subclavian central line and right subclavian central line are stab le position.. Osseous structures are intact. No pneumothorax. CONCLUSION: 1. Minimal bibasilar subsegmental atelectasis. 2. Support lines and tubes are stable position. Jason Jamison MD on September 27, 2016 at 9:03 Board Certified Radiologist. This report was verified electronically.
[2016-09-27 09:12] LABS: ANION GAP 16 MEQ/L (5-15); AST (GOT) 20 U/L (15-37); BICARBONATE 14.6 MEQ/L (21.0-32.0); BLOOD UREA NITROGEN 35 MG/DL (7-18); CHLORIDE 107 MEQ/L (98-107); GLOMERULAR FILTRATION RATE 26 ML/MIN (>89); MAGNESIUM 1.7 MG/DL (1.5-2.5); POTASSIUM 3.6 MEQ/L (3.5-5.1); SODIUM (NA) 138 MEQ/L (136-145)
[2016-09-27] MEDS: CHLORHEXIDINE 0.12% (ORAL KIT) 15 ML CUP MT SCH ×2 (09:14→21:15)
[2016-09-27 09:15] LABS: ALKALINE PHOSPHATASE 81 U/L (45-117); ALT (GPT) 13 U/L (10-53); TOTAL BILIRUBIN ADULT 0.3 MG/DL (0.2-1.0)
[2016-09-27] MEDS: ALBUMIN HUMAN 25% 25 GM/100 ML BAGP IV SCH ×2 (09:15→21:14)
[2016-09-27] MEDS: LACTOBACILLUS ACIDOPHILUS TAB PO SCH ×3 (09:15→18:00)
[2016-09-27] MEDS: VASOPRESSIN INJ 40 UNITS in DEXTROSE 5% IN WATER 100ML INJ 98 ML IV SCH ×2 (09:18)
[2016-09-27 09:42] LABS: BANDS 22 % (0-6); CORRECTED NUCLEATED RBC 2 /100 WBC (0-0); METAMYELOCYTES 3 % (0-1); MYELOCYTES 15 % (0-0); POLYS (SEG NEUTROPHILS) 53 % (16-70); WBC DIFF SAMPLE 100
[2016-09-27 09:43] LABS: PLATELET MORPHOLOGY NORMAL (NORMAL); SCAN/DIFF FINAL DIFF MANUAL
[2016-09-27 09:44] LABS: PLATELET ESTIMATE SMEAR HIGH (NORMAL); ROULEAUX PRESENT (NORMAL)
[2016-09-27] MEDS: MICAFUNGIN INJ 150 MG in SODIUM CHLORIDE 0.9% INJ 100 ML IV SCH ×2 (10:52→11:00)
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
[2016-09-27 11:56] LABS: APTT (PATIENT) 68.6 SEC (24.3-30.1)
[2016-09-27] MEDS: PANTOPRAZOLE SODIUM 40 MG VIAL IV PUSH SCH (12:00)
[2016-09-27] MEDS: VANCOMYCIN 1,000 MG/NS 250 ML IV SCH ×2 (12:18)
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
[2016-09-27 16:38] LABS: APTT (PATIENT) 104.2 SEC (24.3-30.1)
--- NOTE | 2016-09-27 19:15 | HHI.IDPN ---
Note Infectious Disease Note ID Coverage Notes reviewed. Brought foward. is a 60 y/o CF transferred to [facility]ension and respiratory distress. She has a PMH of cerebral aneurysm repair , seizures, HTN, Hep C, tobacco abuse and is aphasic at baseline who [place] [facility] [place] with failure to thrive. She was found to have severe sepsis had decubitus ulcers on her sacrum, buttocks, heels. She underwent laparoscopic diverting colostomy 07/15/16. On 08/13 she underwent colostomy revision per Dr. Faulkner due to peristomal hernia. Patient remained in ICU was on ventilator. Had Proteus Mirabilis UTI and bacteremia during this hospitalization. She was also treated for Cdiff positive diarrhea and followed by ID . She now appears to have recurrent large volume output through her stoma, positive blood culture from 09/10/2016. ID has been consulted for evaluation and Mment of bacteremia and Cdiff. Patient transferred to [facility] again an hour back due to Halicat. Patient was noted to be having worsening mental status and difficulty protecting airway. Patient had to be intubated for airway protection. Ont the vent. On Levophed. Awakens. Sedated. PE noted. WBC increased. Ostomy site with redness and drainage. Has rash in the perineal area. Antibiotics PO vanco Micafingin. Meropenem. Flagyl oral. Vanco. IV. Lines Line sites with no e./o infection Past Medical History Reviewed Allergies: Coded Allergies: MRI PRECAUTION (Verified Adverse Reaction, Severe, ANEURYSM CLIP PER DR. [id number]-09/08/09, 05/31/16) *MDRO Multi-Drug Resistant Organism (Verified Adverse Reaction, Unknown, MRSA, 08/18/16) MRSA (sputum) - 10/2004 & 11/2004 ESBL Klebsiella Pneumoniae ([facility] wash-08/14/16) Objective . Vital Signs Date Time Temp Pulse Resp B/P Pulse Ox O2 Delivery O2 Flow Rate FiO2 09/27/16 18:00 96 09/27/16 16:31 100 40 09/27/16 16:00 92 09/27/16 16:00 98.5 90 22 126/79 100 09/27/16 16:00 40 09/27/16 14:00 73 09/27/16 13:54 99 40 09/27/16 12:00 98.3 93 22 175/55 96 09/27/16 12:00 94 09/27/16 11:50 99.1 98 25 121/76 99 09/27/16 11:47 97 40 09/27/16 10:17 99 40 09/27/16 10:17 40 09/27/16 10:00 96 09/27/16 08:17 99 50 09/27/16 08:00 93 09/27/16 07:00 100 Mechanical Ventilator 09/27/16 06:00 95 09/27/16 04:23 98 50 09/27/16 04:00 95 09/27/16 04:00 101.5 122 27 109/64 98 09/27/16 02:00 95 09/27/16 00:09 100 50 09/27/16 00:00 95 09/27/16 00:00 95.7 92 22 146/86 100 09/26/16 22:00 95 09/26/16 20:00 95 09/26/16 20:00 97.2 102 26 141/89 100 09/26/16 19:41 100 50 09/26/16 09/26/16 09/27/16 15:00 23:00 07:00 Intake Total 0 ml 3732 ml 986 ml Output Total 400 ml 500 ml 250 ml Balance -400 ml 3232 ml 736 ml Intake Oral 0 ml IV Total 3732 ml 986 ml Output Urine Total 400 ml 200 ml 150 ml Stool Total 250 ml 100 ml Drainage Total 50 ml 0 ml # Voids 50 Laboratory Tests Test 09/26/16 09/26/16 09/27/16 10:35 17:20 04:25 White Blood Count 21.7 TH/MM3 36.6 TH/MM3 37.6 TH/MM3 Red Blood Count 3.03 MIL/MM3 3.20 MIL/MM3 3.16 MIL/MM3 Hemoglobin 8.0 GM/DL 8.3 GM/DL 8.2 GM/DL Hematocrit 25.1 % 26.7 % 26.2 % Mean Corpuscular Volume 82.7 FL 83.5 FL 82.9 FL Mean Corpuscular Hemoglobin 26.3 PG 25.8 PG 26.0 PG Mean Corpuscular Hemoglobin 31.8 % 30.9 % 31.3 % Concent Red Cell Distribution Width 17.9 % 18.1 % 17.9 % Platelet Count 587 TH/MM3 789 TH/MM3 795 TH/MM3 Mean Platelet Volume 8.2 FL 8.7 FL 8.6 FL Neutrophils (%) (Auto) 87.6 % 90.2 % Lymphocytes (%) (Auto) 6.3 % 4.0 % Monocytes (%) (Auto) 5.6 % 4.7 % Eosinophils (%) (Auto) 0.4 % 0.9 % Basophils (%) (Auto) 0.1 % 0.2 % Neutrophils # (Auto) 19.0 TH/MM3 33.9 TH/MM3 Lymphocytes # (Auto) 1.4 TH/MM3 1.5 TH/MM3 Monocytes # (Auto) 1.2 TH/MM3 1.8 TH/MM3 Eosinophils # (Auto) 0.1 TH/MM3 0.3 TH/MM3 Basophils # (Auto) 0.0 TH/MM3 0.1 TH/MM3 CBC Comment AUTO DIFF AUTO DIFF Differential Total Cells 100 100 Counted Neutrophils % (Manual) 71 % 53 % Band Neutrophils % 14 % 22 % Lymphocytes % 3 % 4 % Monocytes % 1 % 3 % Neutrophils # (Manual) 20.8 TH/MM3 35.0 TH/MM3 Metamyelocytes 1 % 3 % Myelocytes 9 % 15 % Promyelocytes 1 % Differential Comment FINAL DIFF FINAL DIFF MANUAL MANUAL Platelet Estimate HIGH HIGH Platelet Morphology Comment NORMAL NORMAL Nucleated Red Blood Cells 2 /100 WBC Rouleau PRESENT Laboratory Tests Test 09/26/16 09/27/16 10:35 08:55 Sodium Level 139 MEQ/L 138 MEQ/L Potassium Level 4.3 MEQ/L 3.6 MEQ/L Chloride Level 110 MEQ/L 107 MEQ/L Carbon Dioxide Level 17.3 MEQ/L 14.6 MEQ/L Anion Gap 12 MEQ/L 16 MEQ/L Blood Urea Nitrogen 32 MG/DL 35 MG/DL Creatinine 1.61 MG/DL 1.95 MG/DL Estimat Glomerular Filtration 33 ML/MIN 26 ML/MIN Rate Random Glucose 104 MG/DL 158 MG/DL Lactic Acid Level 0.7 mmol/L Calcium Level 7.9 MG/DL 7.6 MG/DL Total Bilirubin 0.3 MG/DL 0.3 MG/DL Aspartate Amino Transf 20 U/L 20 U/L (AST/SGOT) Alanine Aminotransferase 13 U/L 13 U/L (ALT/SGPT) Alkaline Phosphatase 91 U/L 81 U/L Ammonia LESS THAN 10 MCMOL/L Total Protein 6.3 GM/DL 6.7 GM/DL Albumin 1.3 GM/DL 1.5 GM/DL Magnesium Level 1.7 MG/DL Lipase 716 U/L Microbiology Date/Time Procedure Status Source Growth 09/26/16 09:50 Aerobic Blood Culture - Preliminary Resulted Blood Peripheral NO GROWTH IN 1 DAY 09/26/16 09:50 Anaerobic Blood Culture - Preliminary Resulted Blood Peripheral NO GROWTH IN 1 DAY 09/26/16 09:58 Aerobic Blood Culture - Preliminary Resulted Blood Peripheral NO GROWTH IN 1 DAY 09/26/16 09:58 Anaerobic Blood Culture - Preliminary Resulted Blood Peripheral NO GROWTH IN 1 DAY 09/26/16 12:45 Gram Stain - Final Resulted Sputum Endotracheal 09/26/16 12:45 Sputum Culture - Preliminary Resulted Sputum Endotracheal HEAVY GROWTH NORMAL RESPIRATORY KAYCEE... 09/26/16 12:45 Urine Culture - Preliminary Resulted Urine Catheterized Urine NO GROWTH IN 24 HOURS. 09/27/16 08:56 Stool Occult Blood (AFTAB) - Final Complete Stool Stool HEMOCCULT NEGATIVE Imaging Chest X-Ray 09/27/16 0000 Signed Impressions: Service Date/Time: Tuesday, September 27, 2016 08:51 - CONCLUSION: 1. Minimal bibasilar subsegmental atelectasis. 2. Support lines and tubes are stable position. Jason Jamison MD Upper Extremity Ultrasound 09/26/16 0000 Signed Impressions: Service Date/Time: Monday, September 26, 2016 20:17 - CONCLUSION: No DVT or superficial venous thrombosis is identified within either upper extremity. Please note that the left cephalic vein is not visualized. Aidan Churchill MD Chest X-Ray 09/26/16 0000 Signed Impressions: Service Date/Time: Monday, September 26, 2016 10:35 - CONCLUSION: Interval placement of endotracheal tube and right supine and central venous catheter which are in good position. No evidence of pneumothorax. Bibasilar airspace disease as described. Hari De Souza MD Chest X-Ray 09/26/16 0000 Signed Impressions: Service Date/Time: Monday, September 26, 2016 08:59 - CONCLUSION: No change in left lower lobe consolidation versus atelectasis and small left pleural effusion. Rony Espinoza MD CT Angiography 09/26/16 0000 Signed Impressions: Service Date/Time: Monday, September 26, 2016 15:12 - CONCLUSION: 1. Several small pulmonary emboli in the right upper lobe. 2. Multiple bilateral pulmonary parenchymal nodules. Both neoplastic and inflammatory etiologies are in the differential diagnosis. 3. Mildly prominent right hilar lymph node, likely reactive. 4. Bilateral lower lobe atelectasis and small left pleural effusion. 5. Possible mass in the medial gastric fundus. Rony Espinoza MD Chest X-Ray 08/18/16 0000 Signed Impressions: Service Date/Time: Thursday, August 18, 2016 05:18 - CONCLUSION: Interval increase in opacity in both lung bases as well as apparent bilateral effusions. The findings could indicate congestive heart failure. Zechariah Sutton MD Abdomen/Pelvis CT 08/14/16 0000 Signed Impressions: Service Date/Time: July 15:44 - CONCLUSION: 1. There is no evidence for an intraabdominal process as the cause of sepsis. 2. There is mild prominence to both collecting systems, nonspecific. Vinay Avalos MD FACR Lower Extremity Ultrasound 06/01/16 0000 Signed Impressions: Service Date/Time: Wednesday, June 01, 2016 02:44 - CONCLUSION: No evidence of lower extremity DVT on the right or left. Rony Espinoza MD Head CT 05/31/16 0000 Signed Impressions: Service Date/Time: Tuesday, May 31, 2016 11:51 - CONCLUSION: 1. 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 2. Negative for an acute process. Vinay Avalos MD FACR Physical Exam GENERAL: Awake, Lethargic. SKIN: No jaundice, cool and dry. No rash. HEENT: No scleral icterus. No injection or drainage. Oral mucosae moist. CARDIOVASCULAR: HS audible. Nl S1S2, RESPIRATORY/CHEST: Decreased BS at bases GASTROINTESTINAL: Abdomen soft, distended. MUSCULOSKELETAL: Extremities without clubbing, cyanosis, or edema. No mottling or clubbing. NEUROLOGICAL: opens eyes. Not currently following commands. Assessment & Plan Remarks Septic Shock new. Possible new sources: aspiration pneumonia in health care setting, CAUTI, bacteremia (has port cath remnant in place). Persistent or recurrent Proteus bacteremia: ? port related cath infection (has port cath remnant in place). Intra abdominal source: possible peritonitis or abscess related to colostomy site. Aspiration PNA, HCAP. C.diff hypervirulent 027 strain Infected decubs, S/P diverting colostomy, sp revision of colostomy Acute renal failure. PLAN: Continue Meropenem IV (ASP: prior ESBL, septic shock while on Cefepime IV) Continue Oral Flagyl for Cdiff Continue oral Vanco for Cdiff Vanco IV pharmacy consult (suspected bacteremia: has a port residual catheter in place) Continue Micafungin (was on broad spectrum antibiotics at risk for fungemia.) Monitor cultures. Monitor clinical status. Monitor renal function. Hemal Huitron MD Sep 27, 2016 19:15
[2016-09-27 20:42] LABS: APTT (PATIENT) 70.2 SEC (24.3-30.1)
[2016-09-27] MEDS: METOCLOPRAMIDE HCL 10 MG/2 ML VIAL IV SCH (21:16)
[2016-09-28] VITALS (11 sets, daily range): BP systolic 96–128; BP diastolic 59–87; PULSE 88–117; RESP 22–24; TEMP 97.2–98.3; O2SAT 99–100
[2016-09-28 02:56] LABS: APTT (PATIENT) 54.1 SEC (24.3-30.1)
[2016-09-28] MEDS: metroNIDAZOLE 500 MG INJ 100 ML IV SCH ×3 (03:33→20:31)
[2016-09-28] MEDS: MEROPENEM INJ 500 MG in SODIUM CHLORIDE 0.9% INJ 100 ML IV SCH ×3 (03:33→20:31)
[2016-09-28] MEDS: METOCLOPRAMIDE HCL 10 MG/2 ML VIAL IV SCH ×3 (03:34→22:00)
[2016-09-28] MEDS: VASOPRESSIN INJ 40 UNITS in DEXTROSE 5% IN WATER 100ML INJ 98 ML IV SCH ×2 (03:34)
[2016-09-28] MEDS: FREE WATER G-TUBE SCH ×3 (03:34→20:32)
[2016-09-28] MEDS: VANCOMYCIN 500 MG VIAL (FOR ORAL USE ONLY) PO SCH ×4 (03:34→20:30)
[2016-09-28] MEDS: POTASSIUM PHOSPHATE/SODIUM PHOSPHATE 250 MG TAB PO SCH ×4 (03:34→23:51)
[2016-09-28] MEDS: RESP: ALBUTEROL 2.5 MG/IPRATROPIUM 0.5 MG NEB (SCH) NEB ×3 (04:36→19:51)
[2016-09-28] MEDS: ALBUMIN HUMAN 25% 25 GM/100 ML BAGP IV SCH ×2 (08:50→20:31)
[2016-09-28] MEDS: POTASSIUM CL 40 MEQ/30 ML LIQ UDC GT SCH (08:50)
[2016-09-28] MEDS: SODIUM CHLORIDE 0.9% FLUSH 5 ML FLUSH IV FLUSH SCH ×2 (08:50→20:32)
[2016-09-28] MEDS: CHLORHEXIDINE 0.12% (ORAL KIT) 15 ML CUP MT SCH ×2 (08:50→21:02)
[2016-09-28] MEDS: LACTOBACILLUS ACIDOPHILUS TAB PO SCH ×3 (08:51→17:21)
[2016-09-28] MEDS: MULTIVITAMIN TAB PO SCH (08:51)
[2016-09-28] MEDS: CALAMINE/PRAMOXINE LOTION 180 ML BTL TOPICAL SCH ×2 (08:51→21:02)
[2016-09-28] MEDS: FIDAXOMICIN 200 MG TAB PO SCH ×2 (08:51→20:31)
[2016-09-28] MEDS: BACITRACIN TOP OINT 15 GM TUBE TOP SCH ×2 (08:51→21:02)
[2016-09-28] MEDS: BETAMETHASONE DIPROPIONATE 0.05% CREAM 15 GM TOPICAL SCH ×2 (08:52→21:02)
[2016-09-28] MEDS: PETROLATUM 49%/ZINC OXIDE 15% 4 OUNCE TUBE TOPICAL SCH (08:52)
[2016-09-28] MEDS: MICAFUNGIN INJ 150 MG in SODIUM CHLORIDE 0.9% INJ 100 ML IV SCH (11:00)
[2016-09-28 11:09] LABS: AUTOMATED NEUTROPHIL # 12.8 TH/MM3 (1.8-7.7); BASOPHIL % 0.2 % (0.0-2.0); EOSINOPHIL # 0.2 TH/MM3 (0-0.4); EOSINOPHIL % 1.3 % (0.0-4.0); LYMPH % 1.8 % (9.0-44.0); LYMPHOCYTE # 0.2 TH/MM3 (1.0-4.8); MEAN CELL VOLUME 82.5 FL (80.0-100.0); MEAN CORPUSCULAR HEMOGLOBIN 27.3 PG (27.0-34.0); MEAN CORPUSCULAR HGB CONC 33.1 % (32.0-36.0); MONO % 2.3 % (0.0-8.0); NEUT % 94.4 % (16.0-70.0); PLATELET COUNT 326 TH/MM3 (150-450); RED BLOOD COUNT 2.29 MIL/MM3 (4.00-5.30); RED CELL DISTRIBUTION WIDTH 18.1 % (11.6-17.2); WHITE BLOOD COUNT 13.5 TH/MM3 (4.0-11.0)
[2016-09-28 11:20] LABS: HEMATOCRIT 18.9 % (35.0-46.0); HEMO FLAGS AUTO DIFF
[2016-09-28 11:35] LABS: BICARBONATE 13.4 MEQ/L (21.0-32.0); TOTAL BILIRUBIN ADULT 0.4 MG/DL (0.2-1.0)
[2016-09-28 11:39] LABS: POTASSIUM 3.7 MEQ/L (3.5-5.1)
--- NOTE | 2016-09-28 11:49 | RADRPT ---
EXAM DATE/TIME: 09/28/2016 11:10 [facility] COMPARISON: CHEST SINGLE AP, September 27, 2016, 8:51. INDICATIONS : Short of Breath. MEDICAL HISTORY : Cardiovascular disease. Hypertension. Hepatitis C. SURGICAL HISTORY : section. ENCOUNTER: Subsequent ACUITY: 1 week PAIN SCORE: Non-responsive. LOCATION: Bilateral chest FINDINGS: A single view of the chest demonstrates minimal interstitial prominence. Heart borderline enlarged. E ndotracheal tube and bilateral subclavian central lines in stable position. The cardiomediastinal con tours are unremarkable. Osseous structures are intact. CONCLUSION: Minimal interstitial prominence. Jason Jamison MD on September 28, 2016 at 11:47 Board Certified Radiologist. This report was verified electronically.
[2016-09-28 12:00] LABS: BANDS 19 % (0-6); METAMYELOCYTES 1 % (0-1); MYELOCYTES 8 % (0-0); NEUTROPHIL # MANUAL DIFF 12.4 TH/MM3 (1.8-7.7); OVALOCYTES 1+ (NORMAL); PLATELET ESTIMATE SMEAR NORMAL (NORMAL); PLATELET MORPHOLOGY NORMAL (NORMAL); POLYS (SEG NEUTROPHILS) 64 % (16-70); SCAN/DIFF FINAL DIFF MANUAL; WBC DIFF SAMPLE 100
[2016-09-28] MEDS: PANTOPRAZOLE SODIUM 40 MG VIAL IV PUSH SCH (12:00)
[2016-09-28] MEDS: VANCOMYCIN 1,000 MG/NS 250 ML IV SCH ×2 (12:00)
--- NOTE | 2016-09-28 15:07 | HHI.IDPN ---
Note Infectious Disease Note ID Coverage Notes reviewed. Ont the vent. On Levophed. Awakens. Sedated. WBC lower. Ostomy site with redness and drainage. Has rash in the perineal area. Antibiotics PO Vanco Micafungin. Meropenem. Flagyl oral. Vanco. IV. Lines Line sites with no e./o infection Past Medical History Reviewed Allergies: Coded Allergies: MRI PRECAUTION (Verified Adverse Reaction, Severe, ANEURYSM CLIP PER DR. CARDONA-09/08/09, 05/31/16) *MDRO Multi-Drug Resistant Organism (Verified Adverse Reaction, Unknown, MRSA, 08/18/16) MRSA (sputum) - 10/2004 & 11/2004 ESBL Klebsiella Pneumoniae (bronc wash-08/14/16) Objective Vital Signs Date Time Temp Pulse Resp B/P Pulse Ox O2 Delivery O2 Flow Rate FiO2 09/28/16 12:00 40 09/28/16 08:00 40 09/28/16 04:36 100 40 09/28/16 04:00 97.4 94 22 108/71 100 09/28/16 04:00 40 09/28/16 00:00 40 09/28/16 00:00 97.2 117 22 117/67 100 09/27/16 23:27 100 40 09/27/16 20:29 98 40 09/27/16 20:00 97.4 98 22 116/67 100 Manual Cuff/Palpation 09/27/16 20:00 40 09/27/16 18:00 96 09/27/16 16:31 100 40 09/27/16 16:00 92 09/27/16 16:00 98.5 90 22 126/79 100 09/27/16 16:00 40 . 09/27/16 09/27/16 09/28/16 15:00 23:00 07:00 Intake Total 888 ml 1003 ml 970 ml Output Total 450 ml 325 ml 150 ml Balance 438 ml 678 ml 820 ml IV Total 888 ml 903 ml 770 ml Albumin 100 ml Other 200 ml Output Urine Total 50 ml 50 ml 50 ml Stool Total 350 ml 250 ml 100 ml Drainage Total 50 ml 25 ml 0 ml Laboratory Tests Test 09/26/16 09/27/16 09/28/16 17:20 04:25 10:45 White Blood Count 36.6 TH/MM3 37.6 TH/MM3 13.5 TH/MM3 Red Blood Count 3.20 MIL/MM3 3.16 MIL/MM3 2.29 MIL/MM3 Hemoglobin 8.3 GM/DL 8.2 GM/DL 6.3 GM/DL Hematocrit 26.7 % 26.2 % 18.9 % Mean Corpuscular Volume 83.5 FL 82.9 FL 82.5 FL Mean Corpuscular Hemoglobin 25.8 PG 26.0 PG 27.3 PG Mean Corpuscular Hemoglobin 30.9 % 31.3 % 33.1 % Concent Red Cell Distribution Width 18.1 % 17.9 % 18.1 % Platelet Count 789 TH/MM3 795 TH/MM3 326 TH/MM3 Mean Platelet Volume 8.7 FL 8.6 FL 8.0 FL Neutrophils (%) (Auto) 90.2 % 94.4 % Lymphocytes (%) (Auto) 4.0 % 1.8 % Monocytes (%) (Auto) 4.7 % 2.3 % Eosinophils (%) (Auto) 0.9 % 1.3 % Basophils (%) (Auto) 0.2 % 0.2 % Neutrophils # (Auto) 33.9 TH/MM3 12.8 TH/MM3 Lymphocytes # (Auto) 1.5 TH/MM3 0.2 TH/MM3 Monocytes # (Auto) 1.8 TH/MM3 0.3 TH/MM3 Eosinophils # (Auto) 0.3 TH/MM3 0.2 TH/MM3 Basophils # (Auto) 0.1 TH/MM3 0.0 TH/MM3 CBC Comment AUTO DIFF AUTO DIFF Differential Total Cells 100 100 Counted Neutrophils % (Manual) 53 % 64 % Band Neutrophils % 22 % 19 % Lymphocytes % 4 % 4 % Monocytes % 3 % 4 % Neutrophils # (Manual) 35.0 TH/MM3 12.4 TH/MM3 Metamyelocytes 3 % 1 % Myelocytes 15 % 8 % Nucleated Red Blood Cells 2 /100 WBC Differential Comment FINAL DIFF FINAL DIFF MANUAL MANUAL Platelet Estimate HIGH NORMAL Platelet Morphology Comment NORMAL NORMAL Rouleau PRESENT Ovalocytes 1+ Laboratory Tests Test 09/27/16 09/28/16 09/28/16 09/28/16 08:55 03:49 10:44 10:45 Sodium Level 138 MEQ/L 142 MEQ/L Potassium Level 3.6 MEQ/L 3.7 MEQ/L Chloride Level 107 MEQ/L 108 MEQ/L Carbon Dioxide Level 14.6 MEQ/L 13.4 MEQ/L Anion Gap 16 MEQ/L 21 MEQ/L Blood Urea Nitrogen 35 MG/DL 36 MG/DL Creatinine 1.95 MG/DL 2.28 MG/DL Estimat Glomerular Filtration 26 ML/MIN 22 ML/MIN Rate Random Glucose 158 MG/DL 121 MG/DL Calcium Level 7.6 MG/DL 7.3 MG/DL Magnesium Level 1.7 MG/DL Total Bilirubin 0.3 MG/DL 0.4 MG/DL Aspartate Amino Transf 20 U/L 21 U/L (AST/SGOT) Alanine Aminotransferase 13 U/L 12 U/L (ALT/SGPT) Alkaline Phosphatase 81 U/L 66 U/L Total Protein 6.7 GM/DL 5.8 GM/DL Albumin 1.5 GM/DL 2.2 GM/DL Lipase 716 U/L 401 U/L Protein Corrected Calcium 8.0 MG/DL Ammonia 24 MCMOL/L Microbiology Date/Time Procedure Status Source Growth 09/26/16 09:50 Aerobic Blood Culture - Preliminary Resulted Blood Peripheral NO GROWTH IN 2 DAYS 09/26/16 09:50 Anaerobic Blood Culture - Preliminary Resulted Blood Peripheral NO GROWTH IN 2 DAYS 09/26/16 09:58 Aerobic Blood Culture - Preliminary Resulted Blood Peripheral NO GROWTH IN 2 DAYS 09/26/16 09:58 Anaerobic Blood Culture - Preliminary Resulted Blood Peripheral NO GROWTH IN 2 DAYS 09/26/16 12:45 Gram Stain - Final Complete Sputum Endotracheal 09/26/16 12:45 Sputum Culture - Final Complete Sputum Endotracheal HEAVY GROWTH NORMAL RESPIRATORY KAYCEE 09/26/16 12:45 Urine Culture - Final Complete Urine Catheterized Urine NO GROWTH IN 48 HOURS. 09/27/16 08:56 Stool Occult Blood (AFTAB) - Final Complete Stool Stool HEMOCCULT NEGATIVE Microbiology Date/Time Procedure Status Source Growth 09/26/16 09:50 Aerobic Blood Culture - Preliminary Resulted Blood Peripheral NO GROWTH IN 1 DAY 09/26/16 09:50 Anaerobic Blood Culture - Preliminary Resulted Blood Peripheral NO GROWTH IN 1 DAY 09/26/16 09:58 Aerobic Blood Culture - Preliminary Resulted Blood Peripheral NO GROWTH IN 1 DAY 09/26/16 09:58 Anaerobic Blood Culture - Preliminary Resulted Blood Peripheral NO GROWTH IN 1 DAY 09/26/16 12:45 Gram Stain - Final Resulted Sputum Endotracheal 09/26/16 12:45 Sputum Culture - Preliminary Resulted Sputum Endotracheal HEAVY GROWTH NORMAL RESPIRATORY KAYCEE... 09/26/16 12:45 Urine Culture - Preliminary Resulted Urine Catheterized Urine NO GROWTH IN 24 HOURS. 09/27/16 08:56 Stool Occult Blood (AFTAB) - Final Complete Stool Stool HEMOCCULT NEGATIVE Imaging Chest X-Ray 09/28/16 0000 Signed Impressions: Service Date/Time: Wednesday, September 28, 2016 11:10 - CONCLUSION: Minimal interstitial prominence. Jason Jamison MD Chest X-Ray 09/27/16 0000 Signed Impressions: Service Date/Time: Tuesday, September 27, 2016 08:51 - CONCLUSION: 1. Minimal bibasilar subsegmental atelectasis. 2. Support lines and tubes are stable position. Jason Jamison MD Upper Extremity Ultrasound 09/26/16 0000 Signed Impressions: Service Date/Time: Monday, September 26, 2016 20:17 - CONCLUSION: No DVT or superficial venous thrombosis is identified within either upper extremity. Please note that the left cephalic vein is not visualized. Aidan Churchill MD Chest X-Ray 09/26/16 0000 Signed Impressions: Service Date/Time: Monday, September 26, 2016 10:35 - CONCLUSION: Interval placement of endotracheal tube and right supine and central venous catheter which are in good position. No evidence of pneumothorax. Bibasilar airspace disease as described. Hari De Souza MD Chest X-Ray 09/26/16 0000 Signed Impressions: Service Date/Time: Monday, September 26, 2016 08:59 - CONCLUSION: No change in left lower lobe consolidation versus atelectasis and small left pleural effusion. Rony Espinoza MD CT Angiography 09/26/16 0000 Signed Impressions: Service Date/Time: Monday, September 26, 2016 15:12 - CONCLUSION: 1. Several small pulmonary emboli in the right upper lobe. 2. Multiple bilateral pulmonary parenchymal nodules. Both neoplastic and inflammatory etiologies are in the differential diagnosis. 3. Mildly prominent right hilar lymph node, likely reactive. 4. Bilateral lower lobe atelectasis and small left pleural effusion. 5. Possible mass in the medial gastric fundus. Rony Espinoza MD Chest X-Ray 08/18/16 0000 Signed Impressions: Service Date/Time: Thursday, August 18, 2016 05:18 - CONCLUSION: Interval increase in opacity in both lung bases as well as apparent bilateral effusions. The findings could indicate congestive heart failure. Zechariah Sutton MD Abdomen/Pelvis CT 08/14/16 0000 Signed Impressions: Service Date/Time: July 15:44 - CONCLUSION: 1. There is no evidence for an intraabdominal process as the cause of sepsis. 2. There is mild prominence to both collecting systems, nonspecific. Vinay Avalos MD FACR Lower Extremity Ultrasound 06/01/16 0000 Signed Impressions: Service Date/Time: Wednesday, June 01, 2016 02:44 - CONCLUSION: No evidence of lower extremity DVT on the right or left. Rony Espinoza MD Head CT 05/31/16 0000 Signed Impressions: Service Date/Time: Tuesday, May 31, 2016 11:51 - CONCLUSION: 1. 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 2. Negative for an acute process. Vinay Avalos MD FACR Physical Exam GENERAL: Awake, looks more alert. SKIN: No jaundice, cool and dry. No rash. HEENT: No scleral icterus. No injection or drainage. Oral mucosa moist. CARDIOVASCULAR: Nl S1S2, RESPIRATORY/CHEST: Decreased BS at bases GASTROINTESTINAL: Abdomen soft, distended. MUSCULOSKELETAL: Extremities without clubbing, cyanosis, or edema. No mottling or clubbing. NEUROLOGICAL: Opens eyes. Assessment & Plan Remarks Septic Shock. Possible new sources: aspiration pneumonia in health care setting, CAUTI, bacteremia (has port cath remnant in place). Persistent or recurrent Proteus bacteremia: ? port related cath infection (has port cath remnant in place). Intra abdominal source: possible peritonitis or abscess related to colostomy site. Aspiration PNA, HCAP. C.diff hypervirulent 027 strain Infected decubs, S/P diverting colostomy, sp revision of colostomy Acute renal failure. PLAN: Continue Meropenem IV (ASP: prior ESBL, septic shock while on Cefepime IV) Continue Oral Flagyl for Cdiff Continue oral Vanco for Cdiff Vanco IV pharmacy consult (suspected bacteremia: has a port residual catheter in place) Continue Micafungin (was on broad spectrum antibiotics at risk for fungemia.) Monitor cultures. Monitor clinical status. Monitor renal function. Hemal Huitron MD Sep 28, 2016 15:07
--- NOTE | 2016-09-28 16:21 | HHI.CCPN ---
Subjective Remarks/Hospital Course 60-year-old female transferred to [facility] after Halicat was called due to acute hypoxemic respiratory failure and acute metabolic encephalopathy most likely secondary to severe sepsis. Patient was previously seen by critical care on August 14, 2016. Patient has past medical history significant for cerebral aneurysm repair, seizures, HTN, Hep C, tobacco abuse and is aphasic at baseline, left hemiparesis who originally presented to [facility] on 05/[place]/16 with failure to thrive, sepsis, decubitus ulcers on her sacrum, buttocks, heels. Plastic surgery consulted and managed wounds with wound vac; underwent laparoscopic diverting colostomy 07/15/16. On 08/13 she underwent colostomy revision per Dr. Faulkner due to peristomal hernia. On last ICU admission for respiratory failure and hypotension was seen by Dr. Vega. Per her notes postintubation patient developed mucous plug on the R requiring therapeutic bronchoscopy. Patient was extubated and later transferred to hospitalist service next day. Had a prolonged hospital course since then complicated with multiple sepsis episodes, including gram-negative bacteremia. BAL from 08/14/16 bronchoscopy grew Proteus mirabilis, ESBL Klebsiella and MSSA which was treated in consult with ID. Blood cultures from 08/14/16 grew Proteus mirabilis. Since then other pertinent cultures were blood culture positive for Proteus on , urine culture positive for Proteus on 09/10/15. Critical care medicine was consulted today after a Halicat. Patient became more hypoxemic with sats dropping to low 80s and was placed on 100% percent nonrebreather. PO2 on 100% nonrebreather was only 70. I evaluated the patient once she arrived in the ICU. Patient was in respiratory distress, with an altered mental status, not responding to painful stimuli. Patient was emergently intubated and placed on mechanical ventilation. I also placed an emergent right subclavian central line. Post intubation blood pressure dropped to systolic 80s and I placed her on Levophed. I discussed case extensively with ID Dr. Rascon. Patient will be placed on Vanco, Meropenem, Flagyl and Micafungin. A CT pulmonary angiogram and CT abdomen pelvis has been ordered SUBJ 09/27: Emergently intubated and placed on mechanical ventilation yesterday for acute hypoxemic respiratory failure, failure to protect airway. CT pulmonary angiogram showed right upper lobe pulmonary emboli, multiple pulmonary nodules infectious versus inflammatory versus malignant, and possible gastric fundus mass. CT abdomen and pelvis showed evidence of acute pancreatitis and large yary-ileostomy hernia. Patient remains in septic shock on Levophed and vasopressin. Chemistry pending today 09/28: Remains critically ill, hemoglobin dropped from 8.2-6.3, no obvious external bleeding. Renal failure worsening. On IV heparin, patient remains unresponsive off sedation. Need CT abdomen pelvis to rule out retroperitoneal bleed, CT head to rule out intracranial bleed Objective Vital Signs Date Time Temp Pulse Resp B/P Pulse Ox O2 Delivery O2 Flow Rate FiO2 09/28/16 15:00 97.6 100 23 118/87 100 09/28/16 12:00 40 09/27/16 07:00 Mechanical Ventilator 09/26/16 08:39 15.00 Intake and Output 09/27/16 09/27/16 09/28/16 08:00 16:00 00:00 Intake Total 986 ml 888 ml 1003 ml Output Total 250 ml 450 ml 325 ml Balance 736 ml 438 ml 678 ml Result Diagram: 09/28/16 1045 09/28/16 1044 Other Results Microbiology Date/Time Procedure Status Source Growth 09/26/16 12:45 Gram Stain - Final Complete Sputum Endotracheal 09/26/16 12:45 Sputum Culture - Final Complete Sputum Endotracheal HEAVY GROWTH NORMAL RESPIRATORY KAYCEE 09/26/16 12:45 Urine Culture - Final Complete Urine Catheterized Urine NO GROWTH IN 48 HOURS. 09/27/16 08:56 Stool Occult Blood (AFTAB) - Final Complete Stool Stool HEMOCCULT NEGATIVE Imaging Imaging studies reviewed Objective Remarks GENERAL: 61 yo female who is intubated, appears critically ill SKIN: Warm, HEAD: Atraumatic. Normocephalic. EYES: 4 mm reactive bilaterally. No scleral icterus. No injection or drainage. ENT: No nasal bleeding or discharge. Mucous membranes dry, orotracheally intubated NECK: Trachea midline, scar from prior tracheostomy. Jugular veins flat. CARDIOVASCULAR: Tachycardic. No murmurs rubs or gallops. On 0.04 international units of vasopressin RESPIRATORY: Air entry diminished bilaterally with few coarse rhonchi, scattered wheezes GASTROINTESTINAL: Abdomen obese, soft, ostomy mucosa pink. PEG in place with site benign appearing. L hip wound vac in place. Large hernia associated with colostomy : [facility] in place. MUSCULOSKELETAL: Extremities without clubbing, cyanosis. NEUROLOGICAL: Eyes are spontaneously open. Mildly withdraws right upper and lower extremities do not follow commands. Left hemiparesis Procedures PEG Colostomy 08/28- revision colostomy , repair of parastomal hernia Urinary Catheter: Yes Assessment to: Continue Date of Insertion: Aug 29, 2016 Vascular Central Line Catheter: Yes Assessment to: Continue A/P Assessment and Plan Assessment and Plan NEURO: Acute toxic metabolic encephalopathy History of cerebral aneurysm clip in 2007 Baseline L hemiparesis and aphasia -Encephalopathy seems to be mostly metabolic -Post intubation propofol and fentanyl for sedation and ventilator synchrony, RASS -2 -Daily sedation vacation starting in 24 hours -Repeat CT today as patient is on IV heparin. RESP: Acute hypoxemic respiratory failure Right upper lobe pulmonary embolism Multiple bilateral pulmonary nodules Left lower lobe pneumonia/effusion/HCAP History of tracheostomy COPD, History of Tobacco abuse -PRVC TV 550 R 16 PEEP 5 FIO2 40%. -Wean FiO2 for sat greater than 90%. DuoNeb every 6 hours. And when necessary. -IV Heparin PE protocol -F/U sputum culture -Antibiotics per ID (vancomycin, Meropenem, Flagyl, micafungin) -Pulmonary consult appreciated -Do not meet SBT criteria CV: Septic shock -Normal saline 3 L bolus / and continue NS 75 ml per hour -Off Norepinephrine, Vasopressin. Stress dose hydrocortisone -2 D Echo 12/25/15 with EF 55-60%. Normal wall motion. Mild LVH -Hold hydralazine lisinopril and metoprolol -Left [id number] extraction was attempted 09/20/16. Catheter fractured below the clavicle. -Per Dr. Faulkner unable to remove the endothelialized catheter GI: C Diff colitis Acute pancreatitis Probable gastric fundus mass Dysphagia prior h/o PEG (had been removed, new PEG placed per GI 07/07/16) Diverting colostomy in 07/15/16 for sacral decubitus ulcer Hepatitis C -GI consulted for acute pancreatitis and probable gastric fundus mass-mas appears to be pseudocyst -CT abdomen pelvis today to rule out retroperitoneal bleed. -Needs GJ tube -On IV Flagyl for C. difficile colitis, add Fidaxomicin -Diverting colostomy 07/15/16. Revision 08/13/[address] Faulkner. -NPO except meds -IV Protonix FEN/RENAL: Metabolic acidemia Acute kidney injury. Moderate protein energy malnutrition -[facility] in place. Monitor intake and output closely. -Monitor BUN and creatinine daily, Keep urine output more than 30 mL per hour -IV Albumin 25 gm q12 09/27-09/29, NS at 75 ml per hour -Consult nephrology ID: Septic shock New LLL HCAP C Diff Colitis Prev HCAP 08/14 with ESBL Klebsiella, MSSA, Proteus Proteus bacteremia 08/14 and 09/20 Non stageable necrotic decubitus ulcer L buttocks - wound management per plastics /wound care UTI -Currently receiving vancomycin, meropenem, Flagyl and Micafungin -Added Fidaxomicin 09/27 Pertinent cultures: 09/26 blood urine and sputum cultures are pending 09/10 Urine Proteus 09/10 Blood Proteus 09/01 Urine C tropicalis 08/14 BAL Proteus, ESBL Klebsiella, MSSA 08/14 Blood Proteus 08/14 Urine Escherichia coli, Pseudomonas HEME: Acute PE -Continue IV heparin -Monitor CBC-tranfused 1 U PRBC -U/s bilateral lower extremity negative for DVT 06/01, 09/25 -US Paddy upper ext neg 09/18, repeat ordered ENDO: -Low-dose ISS for glycemic control while on steroids, accucheck q6. -Stress dose steroids PROPH: -IV. Protonix 40 mg IV daily for stress ulcer prophylaxis. ACCESS: -Port in L chest removed09/20/16-unsuccessful, catheter fractured below clavicle. -R subclavian central line placed 09/26/16 SOCIAL: -DCF previously notified for neglect CCT 60 minutes exclusive of separately billable procedures. Lashanda Bermudez MD Sep 28, 2016 16:21
[2016-09-28 17:01] LABS: AUTOMATED NEUTROPHIL # 14.3 TH/MM3 (1.8-7.7); BASOPHIL # 0.1 TH/MM3 (0-0.2); BASOPHIL % 0.4 % (0.0-2.0); EOSINOPHIL # 0.2 TH/MM3 (0-0.4); HEMATOCRIT 26.1 % (35.0-46.0); LYMPH % 4.4 % (9.0-44.0); LYMPHOCYTE # 0.7 TH/MM3 (1.0-4.8); MEAN CELL VOLUME 84.5 FL (80.0-100.0); MEAN CORPUSCULAR HEMOGLOBIN 27.7 PG (27.0-34.0); MEAN CORPUSCULAR HGB CONC 32.8 % (32.0-36.0); MONO % 3.4 % (0.0-8.0); NEUT % 90.8 % (16.0-70.0); PLATELET COUNT 285 TH/MM3 (150-450); RED BLOOD COUNT 3.08 MIL/MM3 (4.00-5.30); RED CELL DISTRIBUTION WIDTH 17.5 % (11.6-17.2); WHITE BLOOD COUNT 15.8 TH/MM3 (4.0-11.0)
[2016-09-28 17:12] LABS: HEMO FLAGS AUTO DIFF
[2016-09-28 17:14] LABS: BANDS 16 % (0-6); EOSINOPHILS 1 % (0-4); MYELOCYTES 3 % (0-0); NEUTROPHIL # MANUAL DIFF 13.6 TH/MM3 (1.8-7.7); OVALOCYTES 1+ (NORMAL); PLATELET ESTIMATE SMEAR NORMAL (NORMAL); PLATELET MORPHOLOGY NORMAL (NORMAL); POLYS (SEG NEUTROPHILS) 67 % (16-70); SCAN/DIFF FINAL DIFF MANUAL; WBC DIFF SAMPLE 100
--- NOTE | 2016-09-28 17:38 | HHI.GIFU ---
Subjective Remarks Intubated unresponsive Objective Vitals I&O Vital Signs Date Time Temp Pulse Resp B/P Pulse Ox O2 Delivery O2 Flow Rate FiO2 09/28/16 16:15 97.8 94 23 126/79 100 09/28/16 16:00 40 09/28/16 16:00 97.6 98 24 126/78 100 09/28/16 15:15 97.6 100 24 128/87 99 09/28/16 15:00 97.6 100 23 118/87 100 09/28/16 12:00 97.3 97 24 125/72 100 09/28/16 12:00 40 09/28/16 08:00 40 09/28/16 08:00 98.3 88 22 96/59 100 09/28/16 04:36 100 40 09/28/16 04:00 97.4 94 22 108/71 100 09/28/16 04:00 40 09/28/16 00:00 40 09/28/16 00:00 97.2 117 22 117/67 100 09/27/16 23:27 100 40 09/27/16 20:29 98 40 09/27/16 20:00 97.4 98 22 116/67 100 Manual Cuff/Palpation 09/27/16 20:00 40 09/27/16 18:00 96 I/O 09/27/16 09/27/16 09/27/16 09/28/16 09/28/16 09/28/16 07:00 15:00 23:00 07:00 15:00 23:00 Intake Total 986 ml 888 ml 1003 ml 970 ml 1366 ml Output Total 250 ml 450 ml 325 ml 150 ml 575 ml Balance 736 ml 438 ml 678 ml 820 ml 791 ml IV Total 986 ml 888 ml 903 ml 770 ml 1166 ml Albumin 100 ml Other 200 ml 200 ml Output Urine Total 150 ml 50 ml 50 ml 50 ml 125 ml Stool Total 100 ml 350 ml 250 ml 100 ml 450 ml Drainage Total 0 ml 50 ml 25 ml 0 ml 0 ml Laboratory Laboratory Tests Test 09/27/16 09/28/16 09/28/16 09/28/16 20:10 02:10 03:49 10:44 Activated Partial 70.2 54.1 Thromboplast Time Lipase 401 Sodium Level 142 Potassium Level 3.7 Chloride Level 108 Carbon Dioxide Level 13.4 Anion Gap 21 Blood Urea Nitrogen 36 Creatinine 2.28 Estimat Glomerular Filtration 22 Rate Random Glucose 121 Calcium Level 7.3 Protein Corrected Calcium 8.0 Total Bilirubin 0.4 Aspartate Amino Transf 21 (AST/SGOT) Alanine Aminotransferase 12 (ALT/SGPT) Alkaline Phosphatase 66 Total Protein 5.8 Albumin 2.2 Test 09/28/16 09/28/16 09/28/16 10:45 12:05 16:40 White Blood Count 13.5 15.8 Red Blood Count 2.29 3.08 Hemoglobin 6.3 8.6 Hematocrit 18.9 26.1 Mean Corpuscular Volume 82.5 84.5 Mean Corpuscular Hemoglobin 27.3 27.7 Mean Corpuscular Hemoglobin 33.1 32.8 Concent Red Cell Distribution Width 18.1 17.5 Platelet Count 326 285 Mean Platelet Volume 8.0 8.3 Neutrophils (%) (Auto) 94.4 90.8 Lymphocytes (%) (Auto) 1.8 4.4 Monocytes (%) (Auto) 2.3 3.4 Eosinophils (%) (Auto) 1.3 1.0 Basophils (%) (Auto) 0.2 0.4 Neutrophils # (Auto) 12.8 14.3 Lymphocytes # (Auto) 0.2 0.7 Monocytes # (Auto) 0.3 0.5 Eosinophils # (Auto) 0.2 0.2 Basophils # (Auto) 0.0 0.1 CBC Comment AUTO DIFF AUTO DIFF Differential Total Cells 100 100 Counted Neutrophils % (Manual) 64 67 Band Neutrophils % 19 16 Lymphocytes % 4 9 Monocytes % 4 4 Neutrophils # (Manual) 12.4 13.6 Metamyelocytes 1 Myelocytes 8 3 Differential Comment FINAL DIFF FINAL DIFF MANUAL MANUAL Platelet Estimate NORMAL NORMAL Platelet Morphology Comment NORMAL NORMAL Ovalocytes 1+ 1+ Ammonia 24 Blood Type A POSITIVE Antibody Screen NEGATIVE Crossmatch Leukocyte-Reduced Red Blood Cells Blood Bank Comment Eosinophils % 1 Date/Time Procedure Status Source Growth 09/27/16 08:56 Stool Occult Blood (FATAB) - Final Complete Stool Stool HEMOCCULT NEGATIVE 09/26/16 12:45 Urine Culture - Final Complete Urine Catheterized Urine NO GROWTH IN 48 HOURS. 09/26/16 12:45 Gram Stain - Final Complete Sputum Endotracheal 09/26/16 12:45 Sputum Culture - Final Complete Sputum Endotracheal HEAVY GROWTH NORMAL RESPIRATORY KAYCEE 09/26/16 09:58 Aerobic Blood Culture - Preliminary Resulted Blood Peripheral NO GROWTH IN 2 DAYS 09/26/16 09:58 Anaerobic Blood Culture - Preliminary Resulted Blood Peripheral NO GROWTH IN 2 DAYS Imaging Last 48 hours Impressions Chest X-Ray 09/28/16 0000 Signed Impressions: Service Date/Time: Wednesday, September 28, 2016 11:10 - CONCLUSION: Minimal interstitial prominence. Jason Jamison MD Chest X-Ray 09/27/16 0000 Signed Impressions: Service Date/Time: Tuesday, September 27, 2016 08:51 - CONCLUSION: 1. Minimal bibasilar subsegmental atelectasis. 2. Support lines and tubes are stable position. Jason Jamison MD Physical Exam HEENT: Normocephalic; atraumatic; no jaundice. CHEST: Resp. even/unlabored CARDIAC: RRR ABDOMEN: Soft, nondistended, nontender; no hepatosplenomegaly; PEG tube site without redness, swelling, or drainage colostomy EXTREMITIES: Generalized edema. SKIN: Dry flaky skin JUTE BAG SEWER: Sedated on a vent Assessment and Plan Plan ASSESSMENT: - ? fundic mass- Pt had EGD with peg tube placement (07/07/16), this showed gastritis but no other abnormalities CT pulmonary angiogram showed right upper lobe pulmonary emboli, multiple pulmonary nodules infectious versus inflammatory versus malignant, and possible gastric fundus mass. CT abdomen and pelvis showed evidence of acute pancreatitis and large yary- ileostomy hernia Currently patient is sedated on a vent, not stable for any procedures - Acute pancreatitis- most likely due to sepsis, abx use lipase 716, WBC 37.6. LFTs normal, Febrile on abx -Pancreatic pseudocyst - C-diff- Vanco and Flagyl - PE- CTA above on Heparin - Long hospital course complicated by several episodes of sepsis, per [facility] - Respiratory failure- intubated per [facility] - decubitus ulcers on her sacrum, buttocks, heels. Plastic surgery consulted and managed wounds with wound vac; underwent laparoscopic diverting colostomy . On 08/13 she underwent colostomy revision per Dr. Faulkner due to peristomal hernia. Currently patient intubated, sedated. Plan: - NPO -Monitor vitals and labs -Will need repeat imaging in the near future so as to assess progression of pseudocyst - Supportive care Gus Velarde MD Sep 28, 2016 17:38
[2016-09-29] VITALS (10 sets, daily range): BP systolic 72–128; BP diastolic 51–85; PULSE 102–118; RESP 22–28; TEMP 97.2–98.6; O2SAT 98–100
[2016-09-29] MEDS: PETROLATUM 49%/ZINC OXIDE 15% 4 OUNCE TUBE TOPICAL SCH ×2 (03:00→10:04)
[2016-09-29] MEDS: metroNIDAZOLE 500 MG INJ 100 ML IV SCH ×3 (03:18→21:06)
[2016-09-29] MEDS: VANCOMYCIN 500 MG VIAL (FOR ORAL USE ONLY) PO SCH ×4 (03:18→21:07)
[2016-09-29] MEDS: MEROPENEM INJ 500 MG in SODIUM CHLORIDE 0.9% INJ 100 ML IV SCH ×3 (03:30→21:13)
[2016-09-29] MEDS: RESP: ALBUTEROL 2.5 MG/IPRATROPIUM 0.5 MG NEB (SCH) NEB ×3 (03:56→21:09)
[2016-09-29 04:42] LABS: AUTOMATED NEUTROPHIL # 14.2 TH/MM3 (1.8-7.7); BASOPHIL % 0.3 % (0.0-2.0); EOSINOPHIL # 0.2 TH/MM3 (0-0.4); EOSINOPHIL % 1.5 % (0.0-4.0); LYMPH % 3.2 % (9.0-44.0); LYMPHOCYTE # 0.5 TH/MM3 (1.0-4.8); MEAN CELL VOLUME 84.3 FL (80.0-100.0); MEAN CORPUSCULAR HEMOGLOBIN 27.4 PG (27.0-34.0); MEAN CORPUSCULAR HGB CONC 32.5 % (32.0-36.0); MONO % 3.5 % (0.0-8.0); NEUT % 91.5 % (16.0-70.0); PLATELET COUNT 288 TH/MM3 (150-450); RED BLOOD COUNT 2.85 MIL/MM3 (4.00-5.30); RED CELL DISTRIBUTION WIDTH 17.5 % (11.6-17.2); WHITE BLOOD COUNT 15.5 TH/MM3 (4.0-11.0)
[2016-09-29 04:45] LABS: HEMO FLAGS AUTO DIFF
[2016-09-29 04:59] LABS: APTT (PATIENT) 61.8 SEC (24.3-30.1)
[2016-09-29 05:10] LABS: ALT (GPT) 12 U/L (10-53); ANION GAP 20 MEQ/L (5-15); AST (GOT) 22 U/L (15-37); BICARBONATE 10.1 MEQ/L (21.0-32.0); BLOOD UREA NITROGEN 34 MG/DL (7-18); CHLORIDE 110 MEQ/L (98-107); GLOMERULAR FILTRATION RATE 21 ML/MIN (>89); POTASSIUM 3.9 MEQ/L (3.5-5.1); SODIUM (NA) 140 MEQ/L (136-145)
[2016-09-29 05:13] LABS: ALKALINE PHOSPHATASE 88 U/L (45-117); TOTAL BILIRUBIN ADULT 0.5 MG/DL (0.2-1.0)
--- NOTE | 2016-09-29 05:29 | RADRPT ---
EXAM DATE/TIME: 09/29/2016 04:29 [facility] COMPARISON: CHEST SINGLE AP, September 28, 2016, 11:10. INDICATIONS : Shortness of breath. MEDICAL HISTORY : Cardiovascular disease. Hepatitis C. Hypertension. SURGICAL HISTORY : None. ENCOUNTER: Subsequent ACUITY: 1 week PAIN SCORE: Non-responsive. LOCATION: Bilateral chest FINDINGS: Patchy airspace disease in the right and left lower lobes. Endotracheal tube and right subclavian sheryl e are again seen. Cardiomegaly. CONCLUSION: No significant change has occurred. Evan Navarro MD on September 29, 2016 at 5:27 Board Certified Radiologist. This report was verified electronically.
[2016-09-29] MEDS: FREE WATER G-TUBE SCH ×3 (06:00→21:07)
[2016-09-29] MEDS: METOCLOPRAMIDE HCL 10 MG/2 ML VIAL IV SCH ×3 (07:44→21:07)
[2016-09-29] MEDS: POTASSIUM PHOSPHATE/SODIUM PHOSPHATE 250 MG TAB PO SCH ×3 (07:44→18:00)
[2016-09-29 07:57] LABS: BANDS 28 % (0-6); BASOPHILS 1 % (0-2); METAMYELOCYTES 3 % (0-1); MYELOCYTES 3 % (0-0); NEUTROPHIL # MANUAL DIFF 14.6 TH/MM3 (1.8-7.7); POLYS (SEG NEUTROPHILS) 60 % (16-70); WBC DIFF SAMPLE 100
[2016-09-29 07:59] LABS: PLATELET ESTIMATE SMEAR NORMAL (NORMAL); PLATELET MORPHOLOGY NORMAL (NORMAL); SCAN/DIFF FINAL DIFF MANUAL
--- NOTE | 2016-09-29 09:25 | HHI.IDPN ---
Subjective Subjective Remarks is a 60 y/o CF transferred to [facility] after Halicat was called due to hypotension and respiratory distress. She has a PMH of cerebral aneurysm repair , seizures, HTN, Hep C, tobacco abuse and is aphasic at baseline who originally presented to [facility] 05/31/16 with failure to thrive. She was found to have severe sepsis had decubitus ulcers on her sacrum, buttocks, heels. She underwent laparoscopic diverting colostomy 07/15/16. On 08/13 she underwent colostomy revision per Dr. Faulkner due to peristomal hernia. Patient remained in ICU was on ventilator. Had Proteus Mirabilis UTI and bacteremia during this hospitalization. She was also treated for Cdiff positive diarrhea and followed by ID . She now appears to have recurrent large volume output through her stoma, positive blood culture from 09/10/2016. ID has been consulted for evaluation and Mment of bacteremia and Cdiff. Weekend and overnight events reviewed. Not on pressors. Remains hypothermic. CT chest with septic emboli to lungs. CT abdomen with pancreatitis, ostomy site ? cellulitis. Ostomy site with redness and drainage. UO minimal. Cr increased. Antibiotics Meropenem IV Vanco IV Flagyl IV Dificid oral Vanco oral. Micafungin IV Lines Line sites with no e./o infection Past Medical History Reviewed Allergies: Coded Allergies: MRI PRECAUTION (Verified Adverse Reaction, Severe, ANEURYSM CLIP PER DR. HERNANDEZFJSLL-EA-WPI-09/08/09, 05/31/16) *MDRO Multi-Drug Resistant Organism (Verified Adverse Reaction, Unknown, MRSA, 08/18/16) MRSA (sputum) - 10/2004 & 11/2004 ESBL Klebsiella Pneumoniae ([facility] wash-08/14/16) Objective . Vital Signs Date Time Temp Pulse Resp B/P Pulse Ox O2 Delivery O2 Flow Rate FiO2 09/29/16 07:38 99 40 09/29/16 04:00 97.2 108 26 126/78 99 09/29/16 04:00 40 09/29/16 03:57 98 40 09/29/16 00:00 40 09/29/16 00:00 97.7 106 22 116/60 98 09/29/16 00:00 98 40 09/28/16 20:00 40 09/28/16 20:00 97.5 94 24 111/78 99 09/28/16 19:51 100 40 09/28/16 16:15 97.8 94 23 126/79 100 09/28/16 16:00 40 09/28/16 16:00 97.6 98 24 126/78 100 09/28/16 15:15 97.6 100 24 128/87 99 09/28/16 15:00 97.6 100 23 118/87 100 09/28/16 12:00 97.3 97 24 125/72 100 09/28/16 12:00 40 09/28/16 09/28/16 09/29/16 15:00 23:00 07:00 Intake Total 1366 ml 483 ml 770 ml Output Total 575 ml 300 ml 310 ml Balance 791 ml 183 ml 460 ml IV Total 1166 ml 483 ml 770 ml Other 200 ml Output Urine Total 125 ml 175 ml 200 ml Stool Total 450 ml 125 ml 100 ml Drainage Total 0 ml 0 ml 10 ml . Laboratory Tests Test 09/28/16 09/28/16 09/29/16 10:45 16:40 04:20 White Blood Count 13.5 TH/MM3 15.8 TH/MM3 15.5 TH/MM3 Red Blood Count 2.29 MIL/MM3 3.08 MIL/MM3 2.85 MIL/MM3 Hemoglobin 6.3 GM/DL 8.6 GM/DL 7.8 GM/DL Hematocrit 18.9 % 26.1 % 24.0 % Mean Corpuscular Volume 82.5 FL 84.5 FL 84.3 FL Mean Corpuscular Hemoglobin 27.3 PG 27.7 PG 27.4 PG Mean Corpuscular Hemoglobin 33.1 % 32.8 % 32.5 % Concent Red Cell Distribution Width 18.1 % 17.5 % 17.5 % Platelet Count 326 TH/MM3 285 TH/MM3 288 TH/MM3 Mean Platelet Volume 8.0 FL 8.3 FL 8.2 FL Neutrophils (%) (Auto) 94.4 % 90.8 % 91.5 % Lymphocytes (%) (Auto) 1.8 % 4.4 % 3.2 % Monocytes (%) (Auto) 2.3 % 3.4 % 3.5 % Eosinophils (%) (Auto) 1.3 % 1.0 % 1.5 % Basophils (%) (Auto) 0.2 % 0.4 % 0.3 % Neutrophils # (Auto) 12.8 TH/MM3 14.3 TH/MM3 14.2 TH/MM3 Lymphocytes # (Auto) 0.2 TH/MM3 0.7 TH/MM3 0.5 TH/MM3 Monocytes # (Auto) 0.3 TH/MM3 0.5 TH/MM3 0.5 TH/MM3 Eosinophils # (Auto) 0.2 TH/MM3 0.2 TH/MM3 0.2 TH/MM3 Basophils # (Auto) 0.0 TH/MM3 0.1 TH/MM3 0.0 TH/MM3 CBC Comment AUTO DIFF AUTO DIFF AUTO DIFF Differential Total Cells 100 100 100 Counted Neutrophils % (Manual) 64 % 67 % 60 % Band Neutrophils % 19 % 16 % 28 % Lymphocytes % 4 % 9 % Monocytes % 4 % 4 % 5 % Neutrophils # (Manual) 12.4 TH/MM3 13.6 TH/MM3 14.6 TH/MM3 Metamyelocytes 1 % 3 % Myelocytes 8 % 3 % 3 % Differential Comment FINAL DIFF FINAL DIFF FINAL DIFF MANUAL MANUAL MANUAL Platelet Estimate NORMAL NORMAL NORMAL Platelet Morphology Comment NORMAL NORMAL NORMAL Ovalocytes 1+ 1+ Eosinophils % 1 % Basophils % 1 % Laboratory Tests Test 09/28/16 09/28/16 09/28/16 09/29/16 03:49 10:44 10:45 04:20 Lipase 401 U/L Sodium Level 142 MEQ/L 140 MEQ/L Potassium Level 3.7 MEQ/L 3.9 MEQ/L Chloride Level 108 MEQ/L 110 MEQ/L Carbon Dioxide Level 13.4 MEQ/L 10.1 MEQ/L Anion Gap 21 MEQ/L 20 MEQ/L Blood Urea Nitrogen 36 MG/DL 34 MG/DL Creatinine 2.28 MG/DL 2.37 MG/DL Estimat Glomerular Filtration 22 ML/MIN 21 ML/MIN Rate Random Glucose 121 MG/DL 108 MG/DL Calcium Level 7.3 MG/DL 7.6 MG/DL Protein Corrected Calcium 8.0 MG/DL Total Bilirubin 0.4 MG/DL 0.5 MG/DL Aspartate Amino Transf 21 U/L 22 U/L (AST/SGOT) Alanine Aminotransferase 12 U/L 12 U/L (ALT/SGPT) Alkaline Phosphatase 66 U/L 88 U/L Total Protein 5.8 GM/DL 5.6 GM/DL Albumin 2.2 GM/DL 2.2 GM/DL Ammonia 24 MCMOL/L Microbiology Date/Time Procedure Status Source Growth 09/26/16 09:50 Aerobic Blood Culture - Preliminary Resulted Blood Peripheral NO GROWTH IN 2 DAYS 09/26/16 09:50 Anaerobic Blood Culture - Preliminary Resulted Blood Peripheral NO GROWTH IN 2 DAYS 09/26/16 09:58 Aerobic Blood Culture - Preliminary Resulted Blood Peripheral NO GROWTH IN 2 DAYS 09/26/16 09:58 Anaerobic Blood Culture - Preliminary Resulted Blood Peripheral NO GROWTH IN 2 DAYS 09/26/16 12:45 Gram Stain - Final Complete Sputum Endotracheal 09/26/16 12:45 Sputum Culture - Final Complete Sputum Endotracheal HEAVY GROWTH NORMAL RESPIRATORY KAYCEE 09/26/16 12:45 Urine Culture - Final Complete Urine Catheterized Urine NO GROWTH IN 48 HOURS. 09/27/16 08:56 Stool Occult Blood (AFTAB) - Final Complete Stool Stool HEMOCCULT NEGATIVE Imaging Last Impressions Chest X-Ray 08/18/16 0000 Signed Impressions: Service Date/Time: Thursday, August 18, 2016 05:18 - CONCLUSION: Interval increase in opacity in both lung bases as well as apparent bilateral effusions. The findings could indicate congestive heart failure. Zechariah Sutton MD Abdomen/Pelvis CT 08/14/16 0000 Signed Impressions: Service Date/Time: July 15:44 - CONCLUSION: 1. There is no evidence for an intraabdominal process as the cause of sepsis. 2. There is mild prominence to both collecting systems, nonspecific. Vinay Avalos MD FACR Lower Extremity Ultrasound 06/01/16 0000 Signed Impressions: Service Date/Time: Wednesday, June 01, 2016 02:44 - CONCLUSION: No evidence of lower extremity DVT on the right or left. Rony Espinoza MD Head CT 05/31/16 0000 Signed Impressions: Service Date/Time: Tuesday, May 31, 2016 11:51 - CONCLUSION: 1. 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 2. Negative for an acute process. Vinay Avalos MD FACR Physical Exam GENERAL: Critically ill, Intubated. SKIN: No rash. EYES: Pupils equal and round and reactive. ENT: Intubated. CARDIOVASCULAR: HS audible. RESPIRATORY/CHEST: Decreased BS at bases bilaterally. GASTROINTESTINAL: Abdomen soft, moderately distended, not tender. Colostomy site sealed well. Some dependent edema and redness around it. MUSCULOSKELETAL: Extremities with no joint effusions. NEUROLOGICAL: sedated speech clear Line sites with no e/o infection. Assessment & Plan Remarks Sepsis Port related infection with septic emboli to lungs. Port remnant still in place. Possible new sources: aspiration pneumonia in health care setting, CAUTI, bacteremia (has port cath remnant in place). Persistent or recurrent Proteus bacteremia: ? port related cath infection (has port cath remnant in place). Intra abdominal source: possible peritonitis or abscess related to colostomy site. Aspiration PNA, HCAP. C.diff hypervirulent 027 strain diarrhea Diarrhea could also be due to pancreatitis or Cdiff. Acute pancreatitis. Infected decubs, S/P diverting colostomy, sp revision of colostomy PLAN: Follow simpson cultures. Continue Meropenem IV (ASP: prior ESBL, septic shock while on Cefepime IV) Continue Oral Flagyl for Cdiff Continue oral Vanco for Cdiff DC Dificid. DC Vanco IV. Continue Micafungin IV (was on broad spectrum antibiotics at risk for fungemia.) Port Catheter remanant in place: possibly endothelialized and difficult to remove. Agree with repeat CT A/P to r/o retroperitoneal bleed. osmani Bermudez d/w : may need HD. Critical thinking and decision making. d/w RN. Reconsult palliative care to address goals of therapy. Jennifer Rascon MD Sep 29, 2016 09:25
[2016-09-29] MEDS ORDERED: SODIUM CHLOR 0.9% 1000 ML INJ 1,000 ML IV PRN (09:26)
[2016-09-29] MEDS ORDERED: NITROGLYCERIN 0.4 MG SL 25 TABS/BTL SL PRN (09:30)
[2016-09-29] MEDS ORDERED: GELATIN 12 MM/7 MM FOAM TOP PRN (09:30)
[2016-09-29] MEDS ORDERED: diphenhydrAMINE HCL 25 MG CAP PO PRN (09:30)
[2016-09-29] MEDS ORDERED: ONDANSETRON HCL 4 MG/2 ML VIAL IV PRN (09:30)
[2016-09-29] MEDS ORDERED: cloNIDine HCL 0.1 MG TAB PO PRN (09:30)
[2016-09-29] MEDS ORDERED: ACETAMINOPHEN 325 MG TAB PO PRN (09:30)
[2016-09-29] MEDS ORDERED: HEPARIN SODIUM - IV 10,000 UNITS/10 ML VIAL IVF PRN ×2 (09:30→15:00)
[2016-09-29] MEDS: LACTOBACILLUS ACIDOPHILUS TAB PO SCH ×3 (10:02→18:00)
[2016-09-29] MEDS: POTASSIUM CL 40 MEQ/30 ML LIQ UDC GT SCH (10:02)
[2016-09-29] MEDS: MULTIVITAMIN TAB PO SCH (10:02)
[2016-09-29] MEDS: BETAMETHASONE DIPROPIONATE 0.05% CREAM 15 GM TOPICAL SCH ×2 (10:04→21:00)
[2016-09-29] MEDS: BACITRACIN TOP OINT 15 GM TUBE TOP SCH ×2 (10:04→21:00)
[2016-09-29] MEDS: CALAMINE/PRAMOXINE LOTION 180 ML BTL TOPICAL SCH ×2 (10:04→21:00)
[2016-09-29] MEDS: CHLORHEXIDINE 0.12% (ORAL KIT) 15 ML CUP MT SCH ×2 (10:05→20:00)
[2016-09-29] MEDS: SODIUM CHLORIDE 0.9% FLUSH 5 ML FLUSH IV FLUSH SCH ×2 (10:05→21:00)
--- NOTE | 2016-09-29 10:20 | MB ---
cc: COLEMAN REGALADO MD DATE OF CONSULTATION 09/29/2016 REASON FOR CONSULTATION Acute kidney injury with elevated BUN and creatinine. HISTORY OF PRESENT ILLNESS This is a 61-year-old female with past medical history of cerebellar aneurysm repair, seizure disorder, hypertension, hepatitis C. She was admitted on May 31 with failure to thrive. I was called to see the patient because of acute kidney injury. The patient had creatinine of 1.23 on admission which improved and then she had increase in the creatinine to 1.27 in June and on August 14 and then it went up to 2.0 and for the last week or so it has been going up again. The patient has had a prolonged hospital course with multiple episodes of infection including pneumonia, urinary tract infection, sepsis. Infectious Disease has been following and the patient has been getting antibiotics. Recently she was on vancomycin; the last dose was given yesterday around 12 noon. She is currently on meropenem and micafungin along with metronidazole. Her blood pressure has been on the lower side in the past few days and now it has been slightly better but her urine output has gone down. The patient is currently intubated and she is not able to give any history. Most of the history was taken from the patient's chart according to which the patient has this diversion colostomy because of nonhealing sacral decubitus and on this admission she was also found to have septic embolization of her lungs. PAST MEDICAL HISTORY 1. Hypertension. 2. Chronic obstructive pulmonary disease. 3. Hepatitis C. 4. Seizure disorder. 5. History of cerebellar aneurysm repair. PAST SURGICAL HISTORY 1. Cerebellar aneurysm repair. 2. Left subclavian port. 3. Tracheostomy. 4. PEG. 5. Colostomy. REVIEW OF SYSTEMS Cannot be taken since the patient is intubated. SOCIAL HISTORY The patient has history of smoking. There is no known history of alcoholism. FAMILY HISTORY Not available. ALLERGIES She has no known drug allergies. CURRENT MEDICATIONS 1. Dificid 200 mg b.i.d. 1. Potassium chloride 40 mEq through the GT tube. 2. Daily multivitamin 1 tablet daily. 3. DuoNeb nebulizer q. 6 hours. 4. Micafungin 50 mg q.24 hours. 5. Protonix 40 mg q. 24 hours. 6. Vancomycin 5 mg q.6 hours p.o. 7. K-Phos 250 mg q.6 hours. 8. Metronidazole 500 mg q.8 hours. 9. Meropenem 500 mg q.8 hours. 10. Sterile water 200 mg through the GT tube q. 8 hours. 11. Reglan 5 mg q. 8 hours. 12. Propofol as needed. 13. Pressors as needed. EXAMINATION GENERAL: The patient is intubated and she is on sedation, just opened her eyes, not following any commands. VITAL SIGNS: Last blood pressure was 126/78. She has been off pressors. Temperature 97.2, oxygen saturation 40% and 99%. HEENT: Pupils are mid-constricted. Nonicteric sclerae, conjunctivae pale. NECK: Supple. JVD is not elevated. LUNGS: The patient has bilateral decreased air entry with scattered wheezing and basilar rales. HEART: S1, S2. Regular rhythm. ABDOMEN: Distended. There is a gastrostomy tube in place and colostomy in place. Bowel sounds positive. EXTREMITIES: She has bilateral 2+ edema. INVESTIGATIONS WBC count is 15.5, hemoglobin 7.8, platelet count of 288, neutrophils 91.5%. Sodium 140, potassium 3.9, chloride 110, bicarb 10.1, BUN 34, creatinine 2.37, glucose 108, calcium 7.6. AST, ALT normal. total protein is 5.6, albumin 2.2. INR is 61.8. Urinalysis showing RBC of 10 to 14. Urine culture last month grew Proteus and blood culture also grew Proteus and urine culture grew Shannon. IMAGING STUDIES The patient had a CT scan of the abdomen and pelvis done with IV contrast on September 26 and it shows that she has increasing evidence of pancreatitis, large hernia associated with the ostomy without any abscess. Kidneys are reported as unremarkable. IMAGING STUDIES CT angiogram was done on the September 26 and showed several small pulmonary embolism in the right upper lobe with multiple bilateral pulmonary parenchymal nodules, bilateral lower lobe atelectasis, possible mass in the medial gastric fundus. ASSESSMENT AND PLAN 1. The acute kidney injury 2. Severe metabolic acidosis 3. Sepsis. 4. Respiratory failure and pneumonia with pulmonary embolism. 5. C-difficile colitis. 6. Respiratory failure. 7. Anemia. The patient has multiple reasons for acute kidney injury including hypotension with acute tubular necrosis, possibility of contrast nephropathy and possibility of vancomycin-related tubular damage because of high vancomycin level. Other possibilities also post-infectious glomerulonephritis. Now she has decrease in the urine output and developing more acidosis. The BUN and creatinine increasing. Most likely the patient will need to start on dialysis. I will discuss with Dr. Bermudez, the hospital corpsman. Her PTT is high and most likely she will need to start on dialysis. I will follow the urine output and BMP. Thank you for the consultation and I will follow the patient while she is in the hospital. MD HEATHER Mclean/CHRISTINE /9:17 AM /9:43 AM
[2016-09-29] MEDS: MICAFUNGIN INJ 150 MG in SODIUM CHLORIDE 0.9% INJ 100 ML IV SCH (11:00)
[2016-09-29] MEDS ORDERED: EPINEPHrine HCL (1:10,000) 1 MG/10 ML SYRINGE ONE (11:44)
[2016-09-29] MEDS ORDERED: PHARMACY ORDERED LAB XX ONE (11:45)
[2016-09-29] MEDS ORDERED: ATROPINE SULFATE 1 MG/10 ML SYRINGE ONE (11:45)
[2016-09-29] MEDS ORDERED: LIDOCAINE HCL 2% 100 MG/5 ML SYRINGE ONE (11:45)
--- NOTE | 2016-09-29 11:59 | HHI.CCPN ---
Subjective Remarks/Hospital Course 60-year-old female transferred to [facility] after Halicat was called due to acute hypoxemic respiratory failure and acute metabolic encephalopathy most likely secondary to severe sepsis. Patient was previously seen by critical care on August 14, 2016. Patient has past medical history significant for cerebral aneurysm repair, seizures, HTN, Hep C, tobacco abuse and is aphasic at baseline, left hemiparesis who originally presented to [facility] on 05/31/16 with failure to thrive, sepsis, decubitus ulcers on her sacrum, buttocks, heels. Plastic surgery consulted and managed wounds with wound vac; underwent laparoscopic diverting colostomy 07/15/16. On 08/13 she underwent colostomy revision per Dr. Faulkner due to peristomal hernia. On last ICU admission for respiratory failure and hypotension was seen by Dr. Vega. Per her notes postintubation patient developed mucous plug on the R requiring therapeutic bronchoscopy. Patient was extubated and later transferred to hospitalist service next day. Had a prolonged hospital course since then complicated with multiple sepsis episodes, including gram-negative bacteremia. BAL from 08/14/16 bronchoscopy grew Proteus mirabilis, ESBL Klebsiella and MSSA which was treated in consult with ID. Blood cultures from 08/14/16 grew Proteus mirabilis. Since then other pertinent cultures were blood culture positive for Proteus on , urine culture positive for Proteus on 09/10/15. Critical care medicine was consulted 2/3 after a Halicat. Patient became more hypoxemic with sats dropping to low 80s and was placed on 100% percent nonrebreather. PO2 on 100% nonrebreather was only 70. I evaluated the patient once she arrived in the ICU. Patient was in respiratory distress, with an altered mental status, not responding to painful stimuli. Patient was emergently intubated and placed on mechanical ventilation. I also placed an emergent right subclavian central line. Post intubation blood pressure dropped to systolic 80s and I placed her on Levophed. I discussed case extensively with ID Dr. Rascon. Patient will be placed on Vanco, Meropenem, Flagyl and Micafungin. A CT pulmonary angiogram and CT abdomen pelvis has been ordered SUBJ 09/27: Emergently intubated and placed on mechanical ventilation yesterday for acute hypoxemic respiratory failure, failure to protect airway. CT pulmonary angiogram showed right upper lobe pulmonary emboli, multiple pulmonary nodules infectious versus inflammatory versus malignant, and possible gastric fundus mass. CT abdomen and pelvis showed evidence of acute pancreatitis and large yary-ileostomy hernia. Patient remains in septic shock on Levophed and vasopressin. Chemistry pending today 09/28: Remains critically ill, hemoglobin dropped from 8.2-6.3, no obvious external bleeding. Renal failure worsening. On IV heparin, patient remains unresponsive off sedation. Need CT abdomen pelvis to rule out retroperitoneal bleed, CT head to rule out intracranial bleed 09/29: Received 1 unit PRBC yesterday, hemoglobin is 7.[address] abdomen pelvis and CT head pending at this time. Oliguric with 15 KG weight gain, severely acidemic with bicarbonate of 10. Creatinine increased to 2.4. Discussed with nephrology will start hemodialysis today Objective Vital Signs Date Time Temp Pulse Resp B/P Pulse Ox O2 Delivery O2 Flow Rate FiO2 09/29/16 07:38 99 40 09/29/16 04:00 97.2 108 26 126/78 09/27/16 07:00 Mechanical Ventilator 09/26/16 08:39 15.00 Intake and Output 09/28/16 09/28/16 09/29/16 08:00 16:00 00:00 Intake Total 970 ml 1366 ml 483 ml Output Total 150 ml 575 ml 300 ml Balance 820 ml 791 ml 183 ml Result Diagram: 09/29/16 0420 09/29/16 0420 Other Results Microbiology Date/Time Procedure Status Source Growth 09/26/16 12:45 Gram Stain - Final Complete Sputum Endotracheal 09/26/16 12:45 Sputum Culture - Final Complete Sputum Endotracheal HEAVY GROWTH NORMAL RESPIRATORY KAYCEE 09/26/16 12:45 Urine Culture - Final Complete Urine Catheterized Urine NO GROWTH IN 48 HOURS. 09/27/16 08:56 Stool Occult Blood (AFTAB) - Final Complete Stool Stool HEMOCCULT NEGATIVE Imaging Imaging studies reviewed Objective Remarks GENERAL: 61 yo female who is intubated, appears critically ill SKIN: Warm HEAD: Atraumatic. Normocephalic. EYES: 4 mm reactive bilaterally. No scleral icterus. No injection or drainage. ENT: No nasal bleeding or discharge. Mucous membranes dry, orotracheally intubated NECK: Trachea midline, scar from prior tracheostomy. Jugular veins flat. CARDIOVASCULAR: Tachycardic. No murmurs rubs or gallops. RESPIRATORY: Air entry diminished bilaterally with few coarse rhonchi, scattered wheezes GASTROINTESTINAL: Abdomen obese, soft, ostomy mucosa pink. PEG in place with site benign appearing. L hip wound vac in place. Large hernia associated with colostomy : [facility] in place. MUSCULOSKELETAL: Extremities without clubbing, cyanosis. Anasarca + NEUROLOGICAL: Eyes are spontaneously open. Very weakly withdraws right upper and lower extremities do not follow commands. Chronic Left hemiparesis Procedures PEG Colostomy 08/28- revision colostomy , repair of parastomal hernia Date of Insertion: Aug 29, 2016 A/P Assessment and Plan Assessment and Plan NEURO: Acute toxic metabolic encephalopathy History of cerebral aneurysm clip in 2007 Baseline L hemiparesis and aphasia -Encephalopathy seems to be mostly metabolic -Post intubation was placed on propofol and fentanyl for sedation and ventilator synchrony, now off sedation for 48 hours- no improvement in mentation -Repeat CT today as patient is on IV heparin. RESP: Acute hypoxemic respiratory failure Right upper lobe pulmonary embolism Multiple bilateral pulmonary nodules Left lower lobe pneumonia/effusion/HCAP History of tracheostomy COPD, History of Tobacco abuse -PRVC TV 550 R 16 PEEP 5 FIO2 40%. -Wean FiO2 for sat greater than 90%. DuoNeb every 6 hours. And when necessary. -IV Heparin PE protocol -F/U sputum culture-neg to date -Antibiotics per ID (vancomycin, Meropenem, Flagyl, micafungin) -Pulmonary consult appreciated-Dr Rg -Do not meet SBT criteria CV: Septic shock Fluid overload -Normal saline 3 L bolus 09/26/16 and NS 75 ml per hour. DC maintenance fluid due to fluid overload -Off Norepinephrine, Vasopressin. Cotninue Stress dose hydrocortisone -2 D Echo 12/25/15 with EF 55-60%. Normal wall motion. Mild LVH -Hold hydralazine lisinopril and metoprolol -Left [id number] extraction was attempted 09/20/16. Catheter fractured below the clavicle. -Per Dr. Faulkner unable to remove the endothelialized catheter GI: C Diff colitis Acute pancreatitis Probable gastric fundus mass (per GI probable pseudocyst) Dysphagia prior h/o PEG (had been removed, new PEG placed per GI 07/07/16) Diverting colostomy in 07/15/16 for sacral decubitus ulcer Hepatitis C -GI consulted for acute pancreatitis and probable gastric fundus mass-mas appears to be pseudocyst -CT abdomen pelvis today to rule out retroperitoneal bleed. -Needs GJ tube -On IV Flagyl for C. difficile colitis,added Fidaxomicin -Diverting colostomy 07/15/16. Revision 08/13/[address] Faulkner. -NPO except meds, -IV Protonix FEN/RENAL: Metabolic acidemia Acute kidney injury. Moderate protein energy malnutrition -[facility] in place. Monitor intake and output closely. Oliguric and acidemic - Start HD today -Monitor BUN and creatinine daily, Keep urine output more than 30 mL per hour -IV Albumin 25 gm q12 09/27-09/29, NS at 75 ml per hour-DC today -Consulted nephrology. Dr. Redmond ID: Septic shock New LLL HCAP C Diff Colitis Prev HCAP 08/14 with ESBL Klebsiella, MSSA, Proteus Proteus bacteremia 08/14 and 09/20 Non stageable necrotic decubitus ulcer L buttocks - wound management per plastics /wound care UTI -Currently receiving vancomycin, meropenem, Flagyl and Micafungin. Added Fidaxomicin 09/27 Pertinent cultures: 09/26 blood urine and sputum cultures are pending 09/10 Urine Proteus 09/10 Blood Proteus 09/01 Urine C tropicalis 08/14 BAL Proteus, ESBL Klebsiella, MSSA 08/14 Blood Proteus 08/14 Urine Escherichia coli, Pseudomonas HEME: Acute PE Anemia requiring transfusion -Hold IV heparin until CT rules out RPB -Monitor CBC-transfused 1 U PRBC 09/28 -U/s bilateral lower extremity negative for DVT 06/01, 09/25 -US Paddy upper ext neg 09/18, repeat ordered ENDO: -Low-dose ISS for glycemic control while on steroids, accucheck q6. -Stress dose steroids PROPH: -IV. Protonix 40 mg IV daily for stress ulcer prophylaxis. ACCESS: -Port in L chest removed09/20/16-unsuccessful, catheter fractured below clavicle. -R subclavian central line placed 09/26/16 -Place HD catheter 09/29/16 SOCIAL: -DCF previously notified for neglect CCT 50 minutes exclusive of separately billable procedures. Lashanda Bermudez MD Sep 29, 2016 11:58
[2016-09-29] MEDS: PANTOPRAZOLE SODIUM 40 MG VIAL IV PUSH SCH (12:11)
[2016-09-29 12:41] LABS: APTT (PATIENT) 49.5 SEC (24.3-30.1)
--- NOTE | 2016-09-29 13:16 | MB ---
cc: ELIZABETH SEAMAN M.D. DATE OF CONSULTATION: 09/29/2016 1957 REASON FOR CONSULTATION Ongoing encephalopathy. HISTORY OF PRESENT ILLNESS The patient is a 61-year-old woman whose history is taken from the chart. Apparently was transferred to [facility] and found to be hypoxemic with encephalopathy and septic. She has a history of cerebral aneurysm repair, seizures, hypertension, hepatitis C, tobacco abuse, also aphasic at baseline with left hemiparesis. Apparently originally came to the hospital back in May of 2016 with failure to thrive, sepsis, decubitus ulcers, was seen by plastic surgery. Underwent laparoscopic diverting colostomy in June of last year and then colostomy revision in July. She had multiple septic episodes, gram-negative bacteremia, Proteus Klebsiella, MSSA. The patient apparently received 1 unit of red cells due to the hemoglobin that was low. Her hemoglobin today is 7.8. Oliguric with a gain of 15 kilograms. Will possibly have hemodialysis today. Is pending to have a CT of the head as well as abdomen and pelvis. Neurology is consulted for ongoing encephalopathy. PHYSICAL EXAMINATION VITAL SIGNS: On exam, her vitals temperature 97.2 rectally, heart rate 108, respiratory rate 26, sating at 99% FIO2 40%. NEURO: Pupils are reactive. She tends to have a right gaze preference but at times starts looking midline and then crosses to the left. She blinks on her own but does not blink to threat, does not follow any commands. She is edematous, third spacing but does withdraw her toes to painful stimuli. Gait, cerebellar cannot be tested nor speech. LABORATORY DATA Labs are reviewed. Today's white count is 15.5, hemoglobin 7.8, platelets 288,000, 28 bands. Coag panel PTT is 61.8. Chemistries CO2 was 10.1 this morning, BUN 34, creatinine 2.37, GFR is 21, lactic acid 7.6, albumin 3.2. Last TSH was normal back on August 29. MICROBIOLOGY Hemoccult negative, no growth in the urine last 24 hours. Sputum final heavy growth normal respiratory isabel. Blood cultures no growth in 3 days. IMAGING STUDIES Her last CT of the head was 09/25/2016 showing nothing acute, chronic white matter and old ischemic changes that have been previously described but not new. IMPRESSION A 61-year-old woman with ongoing sepsis as well as metabolic abnormalities likely contributing to her encephalopathy. However, she does have injury to the brain with her known history of left hemiparesis and speech impairment, due to either from old stroke or from her aneurysm. Recommend getting an EEG to make sure that she is not having some subclinical seizures. If in fact she is then we will need to start her on antiepileptics immediately. Repeat CT of the brain is being performed today for any changes. Looking at current medication I would not change any medications unless needed. Continue current care per nephrology as well as the furnace reliner and further neurologic recommendations will be made as needed. EEG has been ordered and CT will be done today. MD MARTÍNEZ Mustafa/TLL /12:32 PM /12:54 PM
--- NOTE | 2016-09-29 13:45 | RADRPT ---
EXAM DATE/TIME: 09/29/2016 12:54 [facility] COMPARISON: CT BRAIN W/O CONTRAST, September 25, 2016, 18:39. INDICATIONS: Altered mental status today. RADIATION DOSE: 67.02 CTDIvol (mGy) MEDICAL HISTORY: Hypertension. Stroke SURGICAL HISTORY: Craniotomy. Aneurysm repair ENCOUNTER: Initial ACUITY: 1 day PAIN SCALE: Non-responsive LOCATION: Bilateral head TECHNIQUE: Multiple contiguous axial images were obtained of the head. Using automated exposure control and adj ustment of the mA and/or kV according to patient size, radiation dose was kept as low as reasonably a chievable to obtain optimal diagnostic quality images. FINDINGS: Severe encephalomalacia is again noted bilaterally (right slightly worse than left). The sonia ent is status post aneurysm clipping on the right. The ventricles remain chronically dilated. There are scatter ed old lacunar infarcts within the bilateral basal ganglia. Diffuse periventricular and subcortical white matter smal l vessel ischemic changes are noted bilaterally. There is no acute hemorrhage, midline shift, or extraaxial flu id collections. CONCLUSION: 1. No significant change compared to 09/25/16. 2. Extensive bilateral encephalomalacia (right worse than left) predominantly within the frontal lob es and parietal occipital lobes as well as the right temporal lobe. 3. Extensive periventricular and subcortical white matter small vessel ischemic changes bilaterally. 4. Scattered old lacunar infarcts within the bilateral basal ganglia. 5. Stable ventriculomegaly. 6. No acute hemorrhage, midline shift, or extraaxial fluid collections. Ernie Mathis MD on September 29, 2016 at 13:07 Board Certified Radiologist. This report was verified electronically.
--- NOTE | 2016-09-29 13:50 | RADRPT ---
EXAM DATE/TIME: 09/29/2016 13:01 [facility] COMPARISON: CT ABDOMEN & PELVIS W/O CONTRAST, August 14, 2016, 15:44. INDICATIONS: Vomiting today. ORAL CONTRAST: No oral contrast ingested. RADIATION DOSE: 15.40 CTDIvol (mGy) MEDICAL HISTORY: Hypertension. Chronic obstructive pulmonary disease. Lupus. SURGICAL HISTORY: section. ENCOUNTER: Initial ACUITY: 1 day PAIN SCALE: Non-responsive LOCATION: Bilateral abdomen TECHNIQUE: Volumetric scanning of the abdomen and pelvis was performed. Using automated exposure control and ad justment of the mA and/or kV according to patient size, radiation dose was kept as low as reasonably achievable to obtain optimal diagnostic quality images. FINDINGS: Small bilateral pleural effusions are evident. Minimal bibasilar parenchymal changes are noted. The liver is free of focal defects. Minimal calcifications are present in the gallbladder. There is increasing induration around the pancreas. Adrenals and kidneys are unremarkable. There is a large hernia with ostomy in the left abdomen. There is induration around the hernia witho ut abscess formation. Trace ascites is evident. The bladder is decompressed by a [facility]. Gastrostomy tube is in good position. CONCLUSION: 1. Large hernia adjacent to the colostomy without abscess. 2. There is no free air. There is no evidence for an obstruction. 3. There is increasing induration around the pancreas. Correlation with laboratory values is sugges luis. Vinay Avalos MD FACR on September 29, 2016 at 13:25 Board Certified Radiologist. This report was verified electronically.
[2016-09-29] MEDS ORDERED: MIDAZOLAM HCL 5 MG/ML VIAL (1 ML) ONE ×2 (14:17→14:18)
--- NOTE | 2016-09-29 14:17 | HHI.GIFU ---
Subjective Remarks Resting in bed. No active bleeding at this time. going for CT for abdomen/ thorax. (Brooklyn Lizama) Objective Vitals I&O Vital Signs Date Time Temp Pulse Resp B/P Pulse Ox O2 Delivery O2 Flow Rate FiO2 09/29/16 07:38 99 40 09/29/16 04:00 97.2 108 26 126/78 99 09/29/16 04:00 40 09/29/16 03:57 98 40 09/29/16 00:00 40 09/29/16 00:00 97.7 106 22 116/60 98 09/29/16 00:00 98 40 09/28/16 20:00 40 09/28/16 20:00 97.5 94 24 111/78 99 09/28/16 19:51 100 40 09/28/16 16:15 97.8 94 23 126/79 100 09/28/16 16:00 40 09/28/16 16:00 97.6 98 24 126/78 100 09/28/16 15:15 97.6 100 24 128/87 99 09/28/16 15:00 97.6 100 23 118/87 100 I/O 09/28/16 09/28/16 09/28/16 09/29/16 09/29/16 09/29/16 07:00 15:00 23:00 07:00 15:00 23:00 Intake Total 970 ml 1366 ml 483 ml 770 ml Output Total 150 ml 575 ml 300 ml 310 ml Balance 820 ml 791 ml 183 ml 460 ml IV Total 770 ml 1166 ml 483 ml 770 ml Other 200 ml 200 ml Output Urine Total 50 ml 125 ml 175 ml 200 ml Stool Total 100 ml 450 ml 125 ml 100 ml Drainage Total 0 ml 0 ml 0 ml 10 ml Laboratory Laboratory Tests Test 09/28/16 09/29/16 09/29/16 16:40 04:20 11:50 White Blood Count 15.8 15.5 Red Blood Count 3.08 2.85 Hemoglobin 8.6 7.8 Hematocrit 26.1 24.0 Mean Corpuscular Volume 84.5 84.3 Mean Corpuscular Hemoglobin 27.7 27.4 Mean Corpuscular Hemoglobin 32.8 32.5 Concent Red Cell Distribution Width 17.5 17.5 Platelet Count 285 288 Mean Platelet Volume 8.3 8.2 Neutrophils (%) (Auto) 90.8 91.5 Lymphocytes (%) (Auto) 4.4 3.2 Monocytes (%) (Auto) 3.4 3.5 Eosinophils (%) (Auto) 1.0 1.5 Basophils (%) (Auto) 0.4 0.3 Neutrophils # (Auto) 14.3 14.2 Lymphocytes # (Auto) 0.7 0.5 Monocytes # (Auto) 0.5 0.5 Eosinophils # (Auto) 0.2 0.2 Basophils # (Auto) 0.1 0.0 CBC Comment AUTO DIFF AUTO DIFF Differential Total Cells 100 100 Counted Neutrophils % (Manual) 67 60 Band Neutrophils % 16 28 Lymphocytes % 9 Monocytes % 4 5 Eosinophils % 1 Neutrophils # (Manual) 13.6 14.6 Myelocytes 3 3 Differential Comment FINAL DIFF FINAL DIFF MANUAL MANUAL Platelet Estimate NORMAL NORMAL Platelet Morphology Comment NORMAL NORMAL Ovalocytes 1+ Basophils % 1 Metamyelocytes 3 Activated Partial 61.8 49.5 Thromboplast Time Sodium Level 140 Potassium Level 3.9 Chloride Level 110 Carbon Dioxide Level 10.1 Anion Gap 20 Blood Urea Nitrogen 34 Creatinine 2.37 Estimat Glomerular Filtration 21 Rate Random Glucose 108 Calcium Level 7.6 Total Bilirubin 0.5 Aspartate Amino Transf 22 (AST/SGOT) Alanine Aminotransferase 12 (ALT/SGPT) Alkaline Phosphatase 88 Total Protein 5.6 Albumin 2.2 Random Vancomycin Level 36.8 Date/Time Procedure Status Source Growth 09/27/16 08:56 Stool Occult Blood (AFTAB) - Final Complete Stool Stool HEMOCCULT NEGATIVE 09/26/16 12:45 Urine Culture - Final Complete Urine Catheterized Urine NO GROWTH IN 48 HOURS. 09/26/16 12:45 Gram Stain - Final Complete Sputum Endotracheal 09/26/16 12:45 Sputum Culture - Final Complete Sputum Endotracheal HEAVY GROWTH NORMAL RESPIRATORY KAYCEE 09/26/16 09:58 Aerobic Blood Culture - Preliminary Resulted Blood Peripheral NO GROWTH IN 3 DAYS 09/26/16 09:58 Anaerobic Blood Culture - Preliminary Resulted Blood Peripheral NO GROWTH IN 3 DAYS Imaging Last Impressions Chest X-Ray 09/29/16 0600 Signed Impressions: Service Date/Time: Thursday, September 29, 2016 04:29 - CONCLUSION: No significant change has occurred. Evan Navarro MD Upper Extremity Ultrasound 09/26/16 0000 Signed Impressions: Service Date/Time: Monday, September 26, 2016 20:17 - CONCLUSION: No DVT or superficial venous thrombosis is identified within either upper extremity. Please note that the left cephalic vein is not visualized. Aidan Churchill MD CT Angiography 09/26/16 0000 Signed Impressions: Service Date/Time: Monday, September 26, 2016 15:12 - CONCLUSION: 1. Several small pulmonary emboli in the right upper lobe. 2. Multiple bilateral pulmonary parenchymal nodules. Both neoplastic and inflammatory etiologies are in the differential diagnosis. 3. Mildly prominent right hilar lymph node, likely reactive. 4. Bilateral lower lobe atelectasis and small left pleural effusion. 5. Possible mass in the medial gastric fundus. Rony Espinoza MD Abdomen/Pelvis CT 09/26/16 0000 Signed Impressions: Service Date/Time: Monday, September 26, 2016 15:12 - CONCLUSION: 1. Increasing evidence for pancreatitis. Correlation is suggested. 2. Large hernia associated with the ostomy without abscess. Vinay Avalos MD FACR Head CT 09/25/16 9709 Signed Impressions: Service Date/Time: September 18:39 - CONCLUSION: No change. There is no bleed or other acute intracranial abnormality demonstrated. Chronic white matter and old ischemic and/or old traumatic changes as above. Aidan Felipe MD Lower Extremity Ultrasound 09/25/16 1622 Signed Impressions: Service Date/Time: September 17:26 - CONCLUSION: No DVT of the left lower extremity. Aidan Felipe MD [facility] 09/22/16 1702 Signed Impressions: Service Date/Time: Thursday, September 22, 2016 15:50 - CONCLUSION: 1. Unsuccessful port removal. Reed Rico MD Abdomen X-Ray 09/16/16 0000 Signed Impressions: Service Date/Time: Friday, September 16, 2016 16:55 - CONCLUSION: G-tube in place in the body the stomach properly positioned David Rivera MD Physical Exam HEENT: Normocephalic; atraumatic; no jaundice. CHEST: Scattered rhonchi, OETT to vent. CARDIAC: ST ABDOMEN: Soft, nondistended, nontender; no hepatosplenomegaly; PEG tube site without redness, swelling, or drainage colostomy with hernia EXTREMITIES: Generalized edema. 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 fundic mass, ? pseudocyst - Pt had EGD with peg tube placement (07/07/16), this showed gastritis but no other abnormalities CT pulmonary angiogram showed right upper lobe pulmonary emboli, multiple pulmonary nodules infectious versus inflammatory versus malignant, and possible gastric fundus mass. CT abdomen and pelvis showed evidence of acute pancreatitis and large yary- ileostomy hernia. Currently patient is sedated on a vent, not stable for any procedures. Pt is going for repeat imaging of CT abdomen/thorax today. - Acute pancreatitis- most likely due to sepsis, abx use. Lipase improving. WBC improving. LFTs normal, Febrile on abx - Dysphagia/malnourished. S/P EGD/PEG (07/07/16) - C-diff. WBC improving 15.5. Vanco and Flagyl - PE- CTA above on Heparin - Long hospital course complicated by several episodes of sepsis, per [facility] - Respiratory failure- intubated per [facility] - Decubitus ulcers on her sacrum, buttocks, heels. Plastic surgery consulted and managed wounds with wound vac; underwent laparoscopic diverting colostomy . On 08/13 she underwent colostomy revision per Dr. Faulkner due to peristomal hernia. Currently patient intubated, sedated. Plan: - NPO - PPI - Await CT Scan abdomen/pelvis - Patient had recent EGD, no mass found, patient currently not stable for any procedures - Supportive care - Patient seen and examined by Dr. Pascal and myself and this note is written on his behalf. (Brooklyn Lizama) Physician Comments Seen and examined, remains intubated. CT pending for today. (Charito Pascal MD ) [place] Lizama Sep 29, 2016 14:17 Charito Pascal MD Sep 30, 2016 17:01
--- NOTE | 2016-09-29 14:41 | RADRPT ---
EXAM DATE/TIME: 09/29/2016 13:10 [facility] COMPARISON: CHEST SINGLE AP, September 29, 2016, 4:29. INDICATIONS : Respiratory disease. MEDICAL HISTORY : Sepsis. SURGICAL HISTORY : None. ENCOUNTER: Subsequent ACUITY: 2 weeks PAIN SCORE: Non-responsive. LOCATION: Chest FINDINGS: ET tube and central venous catheter are in good position. Heart is minimally enlarged. Minimal biba silar parenchymal changes are evident, improved in the interval. CONCLUSION: 1. Support apparatus in good position. 2. Improvement with less interstitial and alveolar changes in the base. Overall the lungs are better aerated. Vinay Avalos MD FACR on September 29, 2016 at 14:25 Board Certified Radiologist. This report was verified electronically.
[2016-09-29 14:44] LABS: HEMATOCRIT 26.8 % (35.0-46.0); MEAN CORPUSCULAR HEMOGLOBIN 27.2 PG (27.0-34.0); MEAN CORPUSCULAR HGB CONC 31.9 % (32.0-36.0); PLATELET COUNT 348 TH/MM3 (150-450); RED BLOOD COUNT 3.15 MIL/MM3 (4.00-5.30); RED CELL DISTRIBUTION WIDTH 17.6 % (11.6-17.2); WHITE BLOOD COUNT 21.3 TH/MM3 (4.0-11.0)
[2016-09-29 14:45] LABS: HEMO FLAGS AUTO DIFF
[2016-09-29 14:55] LABS: APTT (PATIENT) 48.3 SEC (24.3-30.1)
[2016-09-29] MEDS ORDERED: SODIUM CHLORIDE 0.9% FLUSH 5 ML FLUSH IVF PRN (15:00)
[2016-09-29 15:23] LABS: BANDS 22 % (0-6); CORRECTED NUCLEATED RBC 1 /100 WBC (0-0); METAMYELOCYTES 1 % (0-1); MYELOCYTES 5 % (0-0); NEUTROPHIL # MANUAL DIFF 20.4 TH/MM3 (1.8-7.7); POLYS (SEG NEUTROPHILS) 68 % (16-70); WBC DIFF SAMPLE 100
[2016-09-29 15:24] LABS: PLATELET ESTIMATE SMEAR NORMAL (NORMAL); PLATELET MORPHOLOGY ENLARGED (NORMAL); TOXIC VACUOLATION PRESENT (NONE SEEN)
[2016-09-29 15:25] LABS: SCAN/DIFF FINAL DIFF MANUAL
--- NOTE | 2016-09-29 15:26 | PD.PROCEDR ---
Central Line Procedure REASON FOR PROCEDURE Central venous access PROCEDURE PERFORMED Central line placement: [facility] CONSENT Informed consent for procedure was obtained. The risks and benefits of the procedure were discussed to include but limited to bleeding, clot formation, infection, and even . ANESTHESIA Local injection of 1% Lidocaine DESCRIPTION OF THE PROCEDURE The patient was placed in supine, mild Trendelenburg position. The area was exposed and cleansed with ChloraPrep, times two. Large sterile drape was used to cover the patient, with the site exposed, under sterile conditions including cap, face mask, sterile gown, and sterile gloves. On single attempt, the introducer needle was inserted with negative pressure in syringe and venous flash was obtained. The guide wire was then advanced without any restriction and the needle was removed. The dilator was used without any complications. Using Seldinger technique the 20 CM 14 F double lumen HD catheter was advanced over the guide wire to a depth of 18 centimeters. The guide wire was removed. All ports were aspirated with dark venous blood return and flushed easily with sterile saline. All ports were capped. Antibiotic disc was placed around central line at puncture site. The central line was secured to the skin with two interrupted 2.0 silk sutures. The area was bandaged with sterile see- through central line bandage. RADIOLOGICAL DATA Ultrasound guidance was used to locate RIJ COMPLICATIONS: No apparent complications ESTIMATED BLOOD LOSS: Less than 1 cc. Lashanda Bermudez MD Sep 29, 2016 15:26
--- NOTE | 2016-09-29 15:41 | RADRPT ---
EXAM DATE/TIME: 09/29/2016 15:12 [facility] COMPARISON: CHEST SINGLE AP, September 29, 2016, 13:10. INDICATIONS : Central line placement. MEDICAL HISTORY : Lupus. Chronic obstructive pulmonary disease. Hypertension. SURGICAL HISTORY : section. ENCOUNTER: Subsequent ACUITY: 1 day PAIN SCORE: Non-responsive. LOCATION: Bilateral upper chest FINDINGS: Dialysis catheter, endotracheal tube, and central venous catheter are in good position. Right lung i s clear. Minimal consolidative changes are seen in the left base, increasing in the interval. CONCLUSION: 1. Support apparatus in good position. 2. Increasing consolidative changes in the left base. Vinay Avalos MD FACR on September 29, 2016 at 15:37 Board Certified Radiologist. This report was verified electronically.
--- NOTE | 2016-09-29 17:20 | MG ---
cc: AUDELIA CARPENTER Lab No: Date: 09/29/2016 Age: Sex: F Race: EEG NUMBER [id number] INDICATION Intubated. Increased confusion. MEDICATIONS 1. Heparin. 2. Multivitamin. DESCRIPTION There is an asymmetry to the background with some phase reversing. Sharply contoured waves over the right central head region to start the recording. At times there are sharp appearing phase reverse waves which could indicate a structural lesion in the right central head region with epileptiform activity. This continues throughout the entire recording, on a diffuse 3-5 Hz background. Photic stimulation was performed without significant change in the background. Hyperventilation not performed. IMPRESSION Significant right central seizure focus. A lesion here needs to be ruled out. MD JOANNA Marcial/KK /4:34 PM /5:14 PM .2
[2016-09-29] MEDS: NOREPINEPHRINE-DEXTROSE DRIP 250 ML IV SCH (20:35)
[2016-09-29] MEDS: HEPARIN SODIUM - IV 10,000 UNITS/10 ML VIAL PRN (21:03)
[2016-09-29] MEDS: GENTAMICIN SULFATE (DIALYSIS USE ONLY) 20 MG/2 ML VIAL IV PRN (21:03)
[2016-09-29] MEDS: HEPARIN-D5W INJ 250 ML IV SCH (22:11)
[2016-09-29 22:38] LABS: REVIEW FLAG FINAL
[2016-09-30] VITALS (13 sets, daily range): BP systolic 102–125; BP diastolic 60–84; PULSE 92–122; RESP 21–30; TEMP 97.4–99; O2SAT 97–100
[2016-09-30] MEDS: POTASSIUM PHOSPHATE/SODIUM PHOSPHATE 250 MG TAB PO SCH ×5 (01:04→23:22)
[2016-09-30 02:39] LABS: APTT (PATIENT) 60.6 SEC (24.3-30.1)
[2016-09-30] MEDS: VANCOMYCIN 500 MG VIAL (FOR ORAL USE ONLY) PO SCH ×4 (03:13→20:43)
[2016-09-30] MEDS: metroNIDAZOLE 500 MG INJ 100 ML IV SCH ×3 (03:13→18:55)
[2016-09-30] MEDS: MEROPENEM INJ 500 MG in SODIUM CHLORIDE 0.9% INJ 100 ML IV SCH ×3 (03:13→20:44)
[2016-09-30] MEDS: RESP: ALBUTEROL 2.5 MG/IPRATROPIUM 0.5 MG NEB (SCH) NEB ×2 (03:15→08:25)
[2016-09-30] MEDS: FREE WATER G-TUBE SCH ×3 (04:51→20:44)
[2016-09-30] MEDS: METOCLOPRAMIDE HCL 10 MG/2 ML VIAL IV SCH ×3 (04:52→20:44)
[2016-09-30 04:53] LABS: AUTOMATED NEUTROPHIL # 17.9 TH/MM3 (1.8-7.7); BASOPHIL # 0.1 TH/MM3 (0-0.2); BASOPHIL % 0.3 % (0.0-2.0); EOSINOPHIL # 0.3 TH/MM3 (0-0.4); EOSINOPHIL % 1.6 % (0.0-4.0); HEMATOCRIT 24.4 % (35.0-46.0); LYMPH % 3.5 % (9.0-44.0); LYMPHOCYTE # 0.7 TH/MM3 (1.0-4.8); MEAN CELL VOLUME 83.3 FL (80.0-100.0); MEAN CORPUSCULAR HEMOGLOBIN 27.1 PG (27.0-34.0); MEAN CORPUSCULAR HGB CONC 32.6 % (32.0-36.0); MONO % 4.6 % (0.0-8.0); PLATELET COUNT 300 TH/MM3 (150-450); RED BLOOD COUNT 2.93 MIL/MM3 (4.00-5.30); WHITE BLOOD COUNT 19.9 TH/MM3 (4.0-11.0)
[2016-09-30 05:02] LABS: HEMO FLAGS AUTO DIFF
[2016-09-30 05:05] LABS: ALT (GPT) 12 U/L (10-53); ANION GAP 21 MEQ/L (5-15); AST (GOT) 21 U/L (15-37); BICARBONATE 11.9 MEQ/L (21.0-32.0); BLOOD UREA NITROGEN 24 MG/DL (7-18); CHLORIDE 108 MEQ/L (98-107); GLOMERULAR FILTRATION RATE 25 ML/MIN (>89); MAGNESIUM 1.4 MG/DL (1.5-2.5); POTASSIUM 3.8 MEQ/L (3.5-5.1); SODIUM (NA) 141 MEQ/L (136-145)
[2016-09-30 05:07] LABS: ALKALINE PHOSPHATASE 100 U/L (45-117); TOTAL BILIRUBIN ADULT 0.5 MG/DL (0.2-1.0)
[2016-09-30 05:54] LABS: BANDS 12 % (0-6); BASOPHILS 1 % (0-2); CORRECTED NUCLEATED RBC 1 /100 WBC (0-0); METAMYELOCYTES 8 % (0-1); NEUTROPHIL # MANUAL DIFF 19.7 TH/MM3 (1.8-7.7); OVALOCYTES 1+ (NORMAL); PLATELET ESTIMATE SMEAR NORMAL (NORMAL); PLATELET MORPHOLOGY NORMAL (NORMAL); POLYS (SEG NEUTROPHILS) 78 % (16-70); PROMYELOCYTES 1 % (0-0); SCAN/DIFF FINAL DIFF MANUAL; WBC DIFF SAMPLE 100
[2016-09-30] MEDS: SODIUM CHLOR 0.9% 1000 ML INJ 1,000 ML IV PRN ×2 (08:56→08:57)
[2016-09-30] MEDS: HEPARIN SODIUM - IV 10,000 UNITS/10 ML VIAL PRN (08:57)
[2016-09-30] MEDS: ALBUMIN HUMAN 25% 25 GM/100 ML BAGP IV PRN ×2 (08:57→08:59)
[2016-09-30] MEDS: SODIUM CHLORIDE 0.9% FLUSH 5 ML FLUSH IVF PRN (08:58)
[2016-09-30] MEDS: MANNITOL 12.5 GM/50 ML VIAL IV PRN ×2 (08:58→08:59)
[2016-09-30] MEDS: GENTAMICIN SULFATE (DIALYSIS USE ONLY) 20 MG/2 ML VIAL IV PRN (08:58)
[2016-09-30] MEDS: MULTIVITAMIN TAB PO SCH (09:00)
[2016-09-30] MEDS: LACTOBACILLUS ACIDOPHILUS TAB PO SCH ×3 (09:00→18:55)
[2016-09-30] MEDS: SODIUM CHLORIDE 0.9% FLUSH 5 ML FLUSH IV FLUSH SCH ×2 (09:00→20:44)
[2016-09-30] MEDS: POTASSIUM CL 40 MEQ/30 ML LIQ UDC GT SCH (09:00)
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
[2016-09-30] MEDS: CHLORHEXIDINE 0.12% (ORAL KIT) 15 ML CUP MT SCH ×2 (11:09→20:00)
--- NOTE | 2016-09-30 11:09 | HHI.IDPN ---
Subjective Subjective Remarks is a 60 y/o CF transferred to [facility] after Halicat was called due to hypotension and respiratory distress. She has a PMH of cerebral aneurysm repair , seizures, HTN, Hep C, tobacco abuse and is aphasic at baseline who originally presented to [facility] 05/31/16 with failure to thrive. She was found to have severe sepsis had decubitus ulcers on her sacrum, buttocks, heels. She underwent laparoscopic diverting colostomy 07/15/16. On 08/13 she underwent colostomy revision per Dr. Faulkner due to peristomal hernia. Patient remained in ICU was on ventilator. Had Proteus Mirabilis UTI and bacteremia during this hospitalization. She was also treated for Cdiff positive diarrhea and followed by ID . She now appears to have recurrent large volume output through her stoma, positive blood culture from 09/10/2016. ID has been consulted for evaluation and Mment of bacteremia and Cdiff. Overnight events reviewed. s/p HD yday with hypotension needing placement on Levophed for a while. Now undergoing HD after albumin given and tolerating with ok BP but tachycardia. UO minimal. Not on pressors at present time. Remains hypothermic. Remains encephalopathic. Opens eyes spontaneously but not following commands. No spontaneous limb movts or withdrawal to pain for me. Antibiotics Meropenem IV Vanco IV Flagyl IV Dificid oral Vanco oral. Micafungin IV Lines Line sites with no e./o infection Past Medical History Reviewed Allergies: Coded Allergies: MRI PRECAUTION (Verified Adverse Reaction, Severe, ANEURYSM CLIP PER DR. HERNANDEZGBNTE-YN-BTE-09/08/09, 05/31/16) *MDRO Multi-Drug Resistant Organism (Verified Adverse Reaction, Unknown, MRSA, 08/18/16) MRSA (sputum) - 10/2004 & 11/2004 ESBL [facility]bs[facility] Objective . Vital Signs Date Time Temp Pulse Resp B/P Pulse Ox O2 Delivery O2 Flow Rate FiO2 09/30/16 08:20 98 40 09/30/16 04:00 97.7 104 22 125/84 100 09/30/16 04:00 40 09/30/16 03:17 98 40 09/30/16 00:53 97 40 09/30/16 00:00 99.0 120 23 106/71 99 09/30/16 00:00 40 09/29/16 21:15 100 40 09/29/16 20:00 40 09/29/16 20:00 98.6 118 26 72/51 98 09/29/16 16:01 100 40 09/29/16 16:00 40 09/29/16 16:00 98.0 102 25 122/85 100 09/29/16 12:00 40 09/29/16 12:00 97.7 112 28 128/76 98 09/29/16 09/29/16 09/30/16 15:00 23:00 07:00 Intake Total 767 ml 965 ml 680 ml Output Total 410 ml 2825 ml 175 ml Balance 357 ml -1860 ml 505 ml Intake Oral 0 ml 0 ml IV Total 567 ml 705 ml 430 ml Tube Feeding 0 ml 0 ml Tube Irrigant 200 ml Other 260 ml 250 ml Output Urine Total 150 ml 200 ml 125 ml Stool Total 200 ml 100 ml 25 ml Drainage Total 60 ml 25 ml 25 ml Hemodialysis 2500 ml . Laboratory Tests Test 09/28/16 09/29/16 09/29/16 09/29/16 16:40 04:20 14:30 21:30 White Blood Count 15.8 TH/MM3 15.5 TH/MM3 21.3 TH/MM3 Red Blood Count 3.08 MIL/MM3 2.85 MIL/MM3 3.15 MIL/MM3 Hemoglobin 8.6 GM/DL 7.8 GM/DL 8.6 GM/DL 8.2 GM/DL Hematocrit 26.1 % 24.0 % 26.8 % 25.0 % Mean Corpuscular Volume 84.5 FL 84.3 FL 85.0 FL Mean Corpuscular Hemoglobin 27.7 PG 27.4 PG 27.2 PG Mean Corpuscular Hemoglobin 32.8 % 32.5 % 31.9 % Concent Red Cell Distribution Width 17.5 % 17.5 % 17.6 % Platelet Count 285 TH/MM3 288 TH/MM3 348 TH/MM3 Mean Platelet Volume 8.3 FL 8.2 FL 8.4 FL Neutrophils (%) (Auto) 90.8 % 91.5 % % Lymphocytes (%) (Auto) 4.4 % 3.2 % % Monocytes (%) (Auto) 3.4 % 3.5 % % Eosinophils (%) (Auto) 1.0 % 1.5 % % Basophils (%) (Auto) 0.4 % 0.3 % % Neutrophils # (Auto) 14.3 TH/MM3 14.2 TH/MM3 TH/MM3 Lymphocytes # (Auto) 0.7 TH/MM3 0.5 TH/MM3 TH/MM3 Monocytes # (Auto) 0.5 TH/MM3 0.5 TH/MM3 TH/MM3 Eosinophils # (Auto) 0.2 TH/MM3 0.2 TH/MM3 TH/MM3 Basophils # (Auto) 0.1 TH/MM3 0.0 TH/MM3 TH/MM3 CBC Comment AUTO DIFF AUTO DIFF AUTO DIFF Differential Total Cells 100 100 100 Counted Neutrophils % (Manual) 67 % 60 % 68 % Band Neutrophils % 16 % 28 % 22 % Lymphocytes % 9 % 3 % Monocytes % 4 % 5 % 1 % Eosinophils % 1 % Neutrophils # (Manual) 13.6 TH/MM3 14.6 TH/MM3 20.4 TH/MM3 Myelocytes 3 % 3 % 5 % Differential Comment FINAL DIFF FINAL DIFF FINAL DIFF MANUAL MANUAL MANUAL Platelet Estimate NORMAL NORMAL NORMAL Platelet Morphology Comment NORMAL NORMAL ENLARGED Ovalocytes 1+ Basophils % 1 % Metamyelocytes 3 % 1 % Nucleated Red Blood Cells 1 /100 WBC Toxic Vacuolation PRESENT Test 09/30/16 04:00 White Blood Count 19.9 TH/MM3 Red Blood Count 2.93 MIL/MM3 Hemoglobin 8.0 GM/DL Hematocrit 24.4 % Mean Corpuscular Volume 83.3 FL Mean Corpuscular Hemoglobin 27.1 PG Mean Corpuscular Hemoglobin 32.6 % Concent Red Cell Distribution Width 18.0 % Platelet Count 300 TH/MM3 Mean Platelet Volume 8.5 FL Neutrophils (%) (Auto) 90.0 % Lymphocytes (%) (Auto) 3.5 % Monocytes (%) (Auto) 4.6 % Eosinophils (%) (Auto) 1.6 % Basophils (%) (Auto) 0.3 % Neutrophils # (Auto) 17.9 TH/MM3 Lymphocytes # (Auto) 0.7 TH/MM3 Monocytes # (Auto) 0.9 TH/MM3 Eosinophils # (Auto) 0.3 TH/MM3 Basophils # (Auto) 0.1 TH/MM3 CBC Comment AUTO DIFF Differential Total Cells 100 Counted Neutrophils % (Manual) 78 % Band Neutrophils % 12 % Basophils % 1 % Neutrophils # (Manual) 19.7 TH/MM3 Metamyelocytes 8 % Promyelocytes 1 % Nucleated Red Blood Cells 1 /100 WBC Differential Comment FINAL DIFF MANUAL Platelet Estimate NORMAL Platelet Morphology Comment NORMAL Ovalocytes 1+ Laboratory Tests Test 09/29/16 09/30/16 04:20 04:00 Sodium Level 140 MEQ/L 141 MEQ/L Potassium Level 3.9 MEQ/L 3.8 MEQ/L Chloride Level 110 MEQ/L 108 MEQ/L Carbon Dioxide Level 10.1 MEQ/L 11.9 MEQ/L Anion Gap 20 MEQ/L 21 MEQ/L Blood Urea Nitrogen 34 MG/DL 24 MG/DL Creatinine 2.37 MG/DL 2.06 MG/DL Estimat Glomerular Filtration 21 ML/MIN 25 ML/MIN Rate Random Glucose 108 MG/DL 87 MG/DL Calcium Level 7.6 MG/DL 7.6 MG/DL Total Bilirubin 0.5 MG/DL 0.5 MG/DL Aspartate Amino Transf 22 U/L 21 U/L (AST/SGOT) Alanine Aminotransferase 12 U/L 12 U/L (ALT/SGPT) Alkaline Phosphatase 88 U/L 100 U/L Total Protein 5.6 GM/DL 5.5 GM/DL Albumin 2.2 GM/DL 1.9 GM/DL Magnesium Level 1.4 MG/DL Imaging Last Impressions Chest X-Ray 08/18/16 0000 Signed Impressions: Service Date/Time: Thursday, August 18, 2016 05:18 - CONCLUSION: Interval increase in opacity in both lung bases as well as apparent bilateral effusions. The findings could indicate congestive heart failure. Zechariah Sutton MD Abdomen/Pelvis CT 08/14/16 0000 Signed Impressions: Service Date/Time: July 15:44 - CONCLUSION: 1. There is no evidence for an intraabdominal process as the cause of sepsis. 2. There is mild prominence to both collecting systems, nonspecific. Vinay Avalos MD FACR Lower Extremity Ultrasound 06/01/16 0000 Signed Impressions: Service Date/Time: Wednesday, June 01, 2016 02:44 - CONCLUSION: No evidence of lower extremity DVT on the right or left. Rony Espinoza MD Head CT 05/31/16 0000 Signed Impressions: Service Date/Time: Tuesday, May 31, 2016 11:51 - CONCLUSION: 1. 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 2. Negative for an acute process. Vinay Avalos MD FACR Physical Exam GENERAL: Critically ill, Intubated. SKIN: No rash. EYES: Pupils equal and round and reactive. ENT: Intubated. CARDIOVASCULAR: HS audible. RESPIRATORY/CHEST: Decreased BS at bases bilaterally. GASTROINTESTINAL: Abdomen soft, moderately distended, not tender. Colostomy site sealed well. Some dependent edema and redness around it. MUSCULOSKELETAL: Extremities with no joint effusions. NEUROLOGICAL: Remains encephalopathic. Opens eyes spontaneously but not following commands. No spontaneous limb movts or withdrawal to pain for me. LINE: Previous port site with dry incision, has steristrips Duke in place with yellow clear urine. Assessment & Plan Remarks Sepsis Port related infection with septic emboli to lungs. Port remnant still in place. Possible new sources: aspiration pneumonia in health care setting, CAUTI, bacteremia (has port cath remnant in place). Persistent or recurrent Proteus bacteremia: ? port related cath infection (has port cath remnant in place). Aspiration PNA, HCAP. C.diff hypervirulent 027 strain diarrhea Diarrhea could also be due to pancreatitis or Cdiff. Acute pancreatitis. Infected decubs, S/P diverting colostomy, sp revision of colostomy PLAN: Follow simpson cultures. Continue Meropenem IV (ASP: prior ESBL, septic shock while on Cefepime IV) Continue Oral Flagyl for Cdiff Continue oral Vanco for Cdiff Continue Micafungin IV (was on broad spectrum antibiotics at risk for fungemia. ) Will likely DC in am if BCX remain negative. Port Catheter remanant in place: possibly endothelialized and difficult to remove. Repeat CT with worsening pancreatitis but no abscess or retroperitoneal bleeding noted. Jennifer Sanford MD Sep 30, 2016 11:09
[2016-09-30] MEDS: BACITRACIN TOP OINT 15 GM TUBE TOP SCH ×2 (11:12→20:44)
[2016-09-30] MEDS: CALAMINE/PRAMOXINE LOTION 180 ML BTL TOPICAL SCH ×2 (11:12→20:44)
[2016-09-30] MEDS: BETAMETHASONE DIPROPIONATE 0.05% CREAM 15 GM TOPICAL SCH ×2 (11:12→20:44)
[2016-09-30] MEDS: PETROLATUM 49%/ZINC OXIDE 15% 4 OUNCE TUBE TOPICAL SCH (11:13)
[2016-09-30] MEDS: MICAFUNGIN INJ 150 MG in SODIUM CHLORIDE 0.9% INJ 100 ML IV SCH (11:58)
[2016-09-30] MEDS: PANTOPRAZOLE SODIUM 40 MG VIAL IV PUSH SCH (11:59)
--- NOTE | 2016-09-30 12:11 | HHI.CCPN ---
Subjective Remarks/Hospital Course 60-year-old female transferred to [facility] after Halicat was called due to acute hypoxemic respiratory failure and acute metabolic encephalopathy most likely secondary to severe sepsis. Patient was previously seen by critical care on August 14, 2016. Patient has past medical history significant for cerebral aneurysm repair, seizures, HTN, Hep C, tobacco abuse and is aphasic at baseline, left hemiparesis who originally presented to [facility] on 05/31/16 with failure to thrive, sepsis, decubitus ulcers on her sacrum, buttocks, heels. Plastic surgery consulted and managed wounds with wound vac; underwent laparoscopic diverting colostomy 07/15/16. On 08/13 she underwent colostomy revision per Dr. Faulkner due to peristomal hernia. On last ICU admission for respiratory failure and hypotension was seen by Dr. Vega. Per her notes postintubation patient developed mucous plug on the R requiring therapeutic bronchoscopy. Patient was extubated and later transferred to hospitalist service next day. Had a prolonged hospital course since then complicated with multiple sepsis episodes, including gram-negative bacteremia. BAL from 08/14/16 bronchoscopy grew Proteus mirabilis, ESBL Klebsiella and MSSA which was treated in consult with ID. Blood cultures from 08/14/16 grew Proteus mirabilis. Since then other pertinent cultures were blood culture positive for Proteus on , urine culture positive for Proteus on 09/10/15. Critical care medicine was consulted 2/3 after a Halicat. Patient became more hypoxemic with sats dropping to low 80s and was placed on 100% percent nonrebreather. PO2 on 100% nonrebreather was only 70. I evaluated the patient once she arrived in the ICU. Patient was in respiratory distress, with an altered mental status, not responding to painful stimuli. Patient was emergently intubated and placed on mechanical ventilation. I also placed an emergent right subclavian central line. Post intubation blood pressure dropped to systolic 80s and I placed her on Levophed. I discussed case extensively with ID Dr. Rascon. Patient will be placed on Vanco, Meropenem, Flagyl and Micafungin. A CT pulmonary angiogram and CT abdomen pelvis has been ordered SUBJ 09/27: Emergently intubated and placed on mechanical ventilation yesterday for acute hypoxemic respiratory failure, failure to protect airway. CT pulmonary angiogram showed right upper lobe pulmonary emboli, multiple pulmonary nodules infectious versus inflammatory versus malignant, and possible gastric fundus mass. CT abdomen and pelvis showed evidence of acute pancreatitis and large yary-ileostomy hernia. Patient remains in septic shock on Levophed and vasopressin. Chemistry pending today 09/28: Remains critically ill, hemoglobin dropped from 8.2-6.3, no obvious external bleeding. Renal failure worsening. On IV heparin, patient remains unresponsive off sedation. Need CT abdomen pelvis to rule out retroperitoneal bleed, CT head to rule out intracranial bleed 09/29: Received 1 unit PRBC yesterday, hemoglobin is 7.[address] abdomen pelvis and CT head pending at this time. Oliguric with 15 KG weight gain, severely acidemic with bicarbonate of 10. Creatinine increased to 2.4. Discussed with nephrology will start hemodialysis today 09/30: EEG 09/29 Significant right central seizure focus. Cerebyx 1 GM loading dose and 100, 2 mg IV Ativan. Her AMS most likely from subclinical seizures. Remains afebrile and off pressors. Tachycardic. No improvement in neuro. Eyes spontaneously open, occasionally moves right lower extremity but no withdrawal in right upper or lower. Urine output 475 mL. All cultures since 09/26 had been negative Objective Vital Signs Date Time Temp Pulse Resp B/P Pulse Ox O2 Delivery O2 Flow Rate FiO2 09/30/16 08:20 98 40 09/30/16 08:00 97.7 92 21 110/71 09/27/16 07:00 Mechanical Ventilator 09/26/16 08:39 15.00 Intake and Output 09/29/16 09/29/16 09/30/16 08:00 16:00 00:00 Intake Total 770 ml 767 ml 965 ml Output Total 310 ml 410 ml 2825 ml Balance 460 ml 357 ml -1860 ml Result Diagram: 09/30/16 0400 09/30/16 0400 Imaging Imaging studies reviewed Objective Remarks GENERAL: 61 yo female who is intubated, appears critically ill SKIN: Warm HEAD: Atraumatic. Normocephalic. EYES: 4 mm reactive bilaterally. No scleral icterus. No injection or drainage. R gaze preference ENT: No nasal bleeding or discharge. Mucous membranes dry, orotracheally intubated NECK: Trachea midline, scar from prior tracheostomy. Jugular veins flat. CARDIOVASCULAR: Tachycardic. No murmurs rubs or gallops. Off pressors RESPIRATORY: Air entry diminished bilaterally with few coarse rhonchi, scattered wheezes GASTROINTESTINAL: Abdomen obese, soft, ostomy mucosa pink. PEG in place with site benign appearing. L hip wound vac in place. Large hernia associated with colostomy : Duke in place. MUSCULOSKELETAL: Extremities without clubbing, cyanosis. Anasarca + NEUROLOGICAL: Eyes are spontaneously open, with R gaze preference. Very weakly withdraws right lower extremities do not follow commands. Chronic Left hemiparesis. Procedures PEG Colostomy 08/28- revision colostomy , repair of parastomal hernia Date of Insertion: Aug 29, 2016 A/P Assessment and Plan Assessment and Plan NEURO: Subclinical seizure Acute toxic metabolic encephalopathy History of cerebral aneurysm clip in 2007 Baseline L hemiparesis and aphasia -Encephalopathy secondary to subclinical seizure. EEG 09/29-Significant right central seizure focus. -Ativan 2 mg IV x1 and Cerebyx 1 MG loading dose followed by 100 mg IV q8 starting 09/30/16. Dilantin level and repeat ABG in am -Now off sedation for 48 hours -Repeat CT 09/29 negative RESP: Acute hypoxemic respiratory failure Right upper lobe pulmonary embolism Multiple bilateral pulmonary nodules Left lower lobe pneumonia/effusion/HCAP History of tracheostomy COPD, History of Tobacco abuse -PRVC TV 550 R 16 PEEP 5 FIO2 40%. Daily CPAP -Wean FiO2 for sat greater than 90%. DuoNeb every 6 hours. And when necessary. -IV Heparin PE protocol -F/U sputum culture-neg to date -Antibiotics per ID (vancomycin, Meropenem, Flagyl, micafungin) -Pulmonary consult appreciated-Dr Rg -Do not meet SBT criteria CV: Septic shock Fluid overload -Normal saline 3 L bolus 09/26/16 and NS 75 ml per hour. DC maintenance fluid due to fluid overload -Off Norepinephrine, Vasopressin. Cotninue Stress dose hydrocortisone -2 D Echo 12/25/15 with EF 55-60%. Normal wall motion. Mild LVH -Hold hydralazine lisinopril and metoprolol -Left [id number] extraction was attempted 09/20/16. Catheter fractured below the clavicle. -Per Dr. 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 Increasing induration of pancrease -Needs GJ tube -Gi to place today for post pyloric feeding -On IV Flagyl for C. difficile colitis,added Fidaxomicin -Diverting colostomy 07/15/16. Revision 08/13/[address] Faulkner. -NPO except meds, -IV Protonix FEN/RENAL: Metabolic acidemia Acute kidney injury. Moderate protein energy malnutrition -Duke in place. Monitor intake and output closely. Oliguric and acidemic - Started HD 09/29 -Monitor BUN and creatinine daily, -IV Albumin 25 gm q12 09/27-09/29, NS at 75 ml per hour-DC today -Started on HD 09/29/16 ID: Septic shock New LLL HCAP C Diff Colitis Prev HCAP 08/14 with ESBL Klebsiella, MSSA, Proteus Proteus bacteremia 08/14 and 09/20 Non stageable necrotic decubitus ulcer L buttocks - wound management per plastics /wound care UTI -Currently receiving vancomycin, meropenem, Flagyl and Micafungin. Added Fidaxomicin 09/27 Pertinent cultures: 09/26 blood urine and sputum cultures are neg to date 09/10 Urine Proteus 09/10 Blood Proteus 09/01 Urine C tropicalis 08/14 BAL Proteus, ESBL Klebsiella, MSSA 08/14 Blood Proteus 08/14 Urine Escherichia coli, Pseudomonas HEME: Acute PE Anemia requiring transfusion -Hold IV heparin until CT rules out RPB -Monitor CBC-transfused 1 U PRBC 09/28 -U/s bilateral lower extremity negative for DVT 06/01, 09/25 -US Paddy upper ext neg 09/18, repeat ordered ENDO: -Low-dose ISS for glycemic control while on steroids, accucheck q6. -Stress dose steroids PROPH: -IV. Protonix 40 mg IV daily for stress ulcer prophylaxis. ACCESS: -Port in L chest removed09/20/16-unsuccessful, catheter fractured below clavicle. -R subclavian central line placed 09/26/16 -Place HD catheter 09/29/16 SOCIAL: -DCF previously notified for neglect CCT 50 minutes exclusive of separately billable procedures. Lashanda Bermudez MD Sep 30, 2016 12:11
[2016-09-30] MEDS ORDERED: LORazepam 2 MG/ML VIAL IV PUSH STA (12:16)
[2016-09-30] MEDS ORDERED: FOSPHENYTOIN INJ 1,000 MGPE in SODIUM CHLORIDE 0.9% INJ 50 ML IV STA (12:16)
--- NOTE | 2016-09-30 13:40 | HHI.GIFU ---
Subjective Remarks Resting in bed, sedated on vent. NPO. Nurse reports that her blood sugar was low earlier. ([place] Lizama) Objective Vitals I&O Vital Signs Date Time Temp Pulse Resp B/P Pulse Ox O2 Delivery O2 Flow Rate FiO2 09/30/16 12:27 100 40 09/30/16 12:00 40 09/30/16 08:20 98 40 09/30/16 08:00 40 09/30/16 08:00 97.7 92 21 110/71 99 09/30/16 04:00 97.7 104 22 125/84 100 09/30/16 04:00 40 09/30/16 03:17 98 40 09/30/16 00:53 97 40 09/30/16 00:00 99.0 120 23 106/71 99 09/30/16 00:00 40 09/29/16 21:15 100 40 09/29/16 20:00 40 09/29/16 20:00 98.6 118 26 72/51 98 09/29/16 16:01 100 40 09/29/16 16:00 40 09/29/16 16:00 98.0 102 25 122/85 100 I/O 09/29/16 09/29/16 09/29/16 09/30/16 09/30/16 09/30/16 07:00 15:00 23:00 07:00 15:00 23:00 Intake Total 770 ml 767 ml 965 ml 680 ml Output Total 310 ml 410 ml 2825 ml 175 ml 3000 ml Balance 460 ml 357 ml -1860 ml 505 ml -3000 ml Intake Oral 0 ml 0 ml IV Total 770 ml 567 ml 705 ml 430 ml Tube Feeding 0 ml 0 ml Tube Irrigant 200 ml Other 260 ml 250 ml Output Urine Total 200 ml 150 ml 200 ml 125 ml Stool Total 100 ml 200 ml 100 ml 25 ml Drainage Total 10 ml 60 ml 25 ml 25 ml Hemodialysis 2500 ml 3000 ml Laboratory Laboratory Tests Test 09/29/16 09/29/16 09/30/16 09/30/16 14:30 21:30 02:20 04:00 White Blood Count 21.3 19.9 Red Blood Count 3.15 2.93 Hemoglobin 8.6 8.2 8.0 Hematocrit 26.8 25.0 24.4 Mean Corpuscular Volume 85.0 83.3 Mean Corpuscular Hemoglobin 27.2 27.1 Mean Corpuscular Hemoglobin 31.9 32.6 Concent Red Cell Distribution Width 17.6 18.0 Platelet Count 348 300 Mean Platelet Volume 8.4 8.5 Neutrophils (%) (Auto) 90.0 Lymphocytes (%) (Auto) 3.5 Monocytes (%) (Auto) 4.6 Eosinophils (%) (Auto) 1.6 Basophils (%) (Auto) 0.3 Neutrophils # (Auto) 17.9 Lymphocytes # (Auto) 0.7 Monocytes # (Auto) 0.9 Eosinophils # (Auto) 0.3 Basophils # (Auto) 0.1 CBC Comment AUTO DIFF AUTO DIFF Differential Total Cells 100 100 Counted Neutrophils % (Manual) 68 78 Band Neutrophils % 22 12 Lymphocytes % 3 Monocytes % 1 Neutrophils # (Manual) 20.4 19.7 Metamyelocytes 1 8 Myelocytes 5 Nucleated Red Blood Cells 1 1 Differential Comment FINAL DIFF FINAL DIFF MANUAL MANUAL Toxic Vacuolation PRESENT Platelet Estimate NORMAL NORMAL Platelet Morphology Comment ENLARGED NORMAL Activated Partial 48.3 60.6 Thromboplast Time Hepatitis A IgM Antibody NEGATIVE Hepatitis B Surface Antigen NEGATIVE Hepatitis B Core IgM Antibody NEGATIVE Hepatitis C Antibody REACTIVE Basophils % 1 Promyelocytes 1 Ovalocytes 1+ Sodium Level 141 Potassium Level 3.8 Chloride Level 108 Carbon Dioxide Level 11.9 Anion Gap 21 Blood Urea Nitrogen 24 Creatinine 2.06 Estimat Glomerular Filtration 25 Rate Random Glucose 87 Calcium Level 7.6 Magnesium Level 1.4 Total Bilirubin 0.5 Aspartate Amino Transf 21 (AST/SGOT) Alanine Aminotransferase 12 (ALT/SGPT) Alkaline Phosphatase 100 Total Protein 5.5 Albumin 1.9 Date/Time Procedure Status Source Growth 09/27/16 08:56 Stool Occult Blood (AFTAB) - Final Complete Stool Stool HEMOCCULT NEGATIVE 09/26/16 12:45 Urine Culture - Final Complete Urine Catheterized Urine NO GROWTH IN 48 HOURS. 09/26/16 12:45 Gram Stain - Final Complete Sputum Endotracheal 09/26/16 12:45 Sputum Culture - Final Complete Sputum Endotracheal HEAVY GROWTH NORMAL RESPIRATORY KAYCEE 09/26/16 09:58 Aerobic Blood Culture - Preliminary Resulted Blood Peripheral NO GROWTH IN 4 DAYS 09/26/16 09:58 Anaerobic Blood Culture - Preliminary Resulted Blood Peripheral NO GROWTH IN 4 DAYS Imaging Last Impressions Chest X-Ray 09/29/16 [id number] Signed Impressions: Service Date/Time: Thursday, September 29, 2016 15:12 - CONCLUSION: 1. Support apparatus in good position. 2. Increasing consolidative changes in the left base. Vinay Avalos MD FACR Head CT 09/29/16 0000 Signed Impressions: Service Date/Time: Thursday, September 29, 2016 12:54 - CONCLUSION: 1. No significant change compared to 09/25/16. 2. Extensive bilateral encephalomalacia (right worse than left) predominantly within the frontal lobes and parietal occipital lobes as well as the right temporal lobe. 3. Extensive periventricular and subcortical white matter small vessel ischemic changes bilaterally. 4. Scattered old lacunar infarcts within the bilateral basal ganglia. 5. Stable ventriculomegaly. 6. No acute hemorrhage, midline shift , or extraaxial fluid collections. Ernie Mathis MD Abdomen/Pelvis CT 09/29/16 0000 Signed Impressions: Service Date/Time: Thursday, September 29, 2016 13:01 - CONCLUSION: 1. Large hernia adjacent to the colostomy without abscess. 2. There is no free air. There is no evidence for an obstruction. 3. There is increasing induration around the pancreas. Correlation with laboratory values is suggested. Vinay Avalos MD FACR Upper Extremity Ultrasound 09/26/16 0000 Signed Impressions: Service Date/Time: Monday, September 26, 2016 20:17 - CONCLUSION: No DVT or superficial venous thrombosis is identified within either upper extremity. Please note that the left cephalic vein is not visualized. Aidan Churchill MD CT Angiography 09/26/16 0000 Signed Impressions: Service Date/Time: Monday, September 26, 2016 15:12 - CONCLUSION: 1. Several small pulmonary emboli in the right upper lobe. 2. Multiple bilateral pulmonary parenchymal nodules. Both neoplastic and inflammatory etiologies are in the differential diagnosis. 3. Mildly prominent right hilar lymph node, likely reactive. 4. Bilateral lower lobe atelectasis and small left pleural effusion. 5. Possible mass in the medial gastric fundus. Rony Espinoza MD Lower Extremity Ultrasound 09/25/16 1622 Signed Impressions: Service Date/Time: September 17:26 - CONCLUSION: No DVT of the left lower extremity. Aidan Felipe MD [facility] 09/22/16 1702 Signed Impressions: Service Date/Time: Thursday, September 22, 2016 15:50 - CONCLUSION: 1. Unsuccessful port removal. Reed Rico MD Abdomen X-Ray 09/16/16 0000 Signed Impressions: Service Date/Time: Friday, September 16, 2016 16:55 - CONCLUSION: G-tube in place in the body the stomach properly positioned David Rivera MD Physical Exam HEENT: Normocephalic; atraumatic; no jaundice. CHEST: Scattered rhonchi, OETT to vent. CARDIAC: ST ABDOMEN: Soft, nondistended, nontender; no hepatosplenomegaly; PEG tube site without redness, swelling, or drainage colostomy with hernia EXTREMITIES: Generalized edema. SKIN: Multiple ecchymotic area BULB SORTER: Sedated on a vent ([place] Lizama) Assessment and Plan Plan ASSESSMENT: - Acute pancreatitis, most likely secondary to sepsis/abx use. Rpt. CT scan abdomen/pelvis (09/29/16)---> 1. Large hernia adjacent to the colostomy without abscess. 2. There is no free air. There is no evidence for an obstruction. 3. There is increasing induration around the pancreas. Correlation with laboratory values is suggested. Pt with persistent leukocytosis, wbc 19.9. Lipase on 09/28 was 401. Will ask IR to convert G tube to G/J tube. Once this is done, okay to start post pyloric feedings. - ? fundic mass, ? pseudocyst - Pt had EGD with peg tube placement (07/07/16), this showed gastritis but no other abnormalities CT pulmonary angiogram showed right upper lobe pulmonary emboli, multiple pulmonary nodules infectious versus inflammatory versus malignant, and possible gastric fundus mass. CT abdomen and pelvis showed evidence of acute pancreatitis and large yary- ileostomy hernia. Currently patient is sedated on a vent, not stable for any procedures. S/P repeat CT of abdomen as above. - Dysphagia/malnourished. S/P EGD/PEG (07/07/16). Will ask IR to convert peg to G/J tube. - C-diff. WBC improving 19.9. Vanco and Flagyl - PE- CTA above on Heparin - Long hospital course complicated by several episodes of sepsis, per [facility] - Respiratory failure- intubated per [facility] - Decubitus ulcers on her sacrum, buttocks, heels. Plastic surgery consulted and managed wounds with wound vac; underwent laparoscopic diverting colostomy . On 08/13 she underwent colostomy revision per Dr. Faulkner due to peristomal hernia. Wound vac to sacral wound Plan: - Consult IR to convert G tube to G/J tube - Once G tube converted, okay to start post pyloric feedings - NPO - PPI - Monitor labs - Supportive care - Patient had recent EGD, no mass found, patient currently not stable for any procedures - Patient seen and examined by Dr. Pascal and myself and this note is written on his behalf. (Brooklyn Lizama) Physician Comments Seen and examined with Ms. Dl YIN, sedated, intubated. Still no G/J. Discussed with Dr. Bermudez (Charito Pascal MD) [place] Lizama Sep 30, 2016 13:40 Charito Pascal MD Sep 30, 2016 18:39
[2016-09-30 14:15] LABS: APTT (PATIENT) GREATER THAN 153.4 SEC (24.3-30.1)
[2016-09-30] MEDS ORDERED: FOSPHENYTOIN SODIUM 100 MG PE/2 ML VIAL IV SCH (16:00)
[2016-09-30] MEDS: RESP: ALBUTEROL 2.5 MG/IPRATROPIUM 0.5 MG NEB (PRN) INH ×2 (16:19→21:49)
--- NOTE | 2016-09-30 16:46 | HHI.NPPN ---
Subjective History of Present Illness 61-year-old female with past medical history of cerebellar aneurysm repair, seizure disorder, hypertension, hepatitis C. She was admitted on May 31 with failure to thrive. I was called to see the patient because of acute kidney injury. The patient had creatinine of 1.23 on admission which improved and then she had increase in the creatinine to 1.27 in June and on August 14 and then it went up to 2.0 and for the last week or so it has been going up again. The patient has had a prolonged hospital course with multiple episodes of infection including pneumonia, urinary tract infection, sepsis. Infectious Disease has been following and the patient has been getting antibiotics. Additional Remarks Patient remain on the vent. and off sedation. Objective Data Data 09/29/16 09/30/16 19:00 07:00 Intake Total 767 ml 1645 ml Output Total 410 ml 3000 ml Balance 357 ml -1355 ml Intake Oral 0 ml IV Total 567 ml 1135 ml Tube Feeding 0 ml Tube Irrigant 200 ml Other 510 ml Output Urine Total 150 ml 325 ml Stool Total 200 ml 125 ml Drainage Total 60 ml 50 ml Hemodialysis 2500 ml Vital Signs Date Time Temp Pulse Resp B/P Pulse Ox O2 Delivery O2 Flow Rate FiO2 09/30/16 16:16 100 40 09/30/16 14:15 40 09/30/16 12:27 100 40 09/30/16 12:00 40 09/30/16 08:20 98 40 09/30/16 08:00 40 09/30/16 08:00 97.7 92 21 110/71 99 09/30/16 04:00 97.7 104 22 125/84 100 09/30/16 04:00 40 09/30/16 03:17 98 40 09/30/16 00:53 97 40 09/30/16 00:00 99.0 120 23 106/71 99 09/30/16 00:00 40 09/29/16 21:15 100 40 09/29/16 20:00 40 09/29/16 20:00 98.6 118 26 72/51 98 -: 09/30/16 0400 09/30/16 0400 Physical Exam General Appearance Remarks Intubated and off sedation. Eyes Eye Exam: Pupils Equal Throat Throat Exam: Oral Mucosa [place] & Moist Pulmonary Resp Exam: Crackles, Rhonchi, Decreased Bases, Diminished Breath Sounds Cardiology CV Exam: Regular Gastrointestinal/Abdomen GI Exam: Soft, Non-Tender, Distended (with colostomy.) Extremeties Extremities Exam: Moderate Edema, Pitting Edema, Dependent Edema Neurologic Neuro Exam: Unresponsive Assessment/Plan Assessment Summary: IMELDA/Acute Renal Failure Electrolyte Assessment: Metabolic Acidosis Problem List: (1) Anemia (2) Lactic acidosis (3) Acute respiratory failure (4) Cellulitis (5) Edema (6) COPD (chronic obstructive pulmonary disease) (7) History of CVA (cerebrovascular accident) (8) Essential hypertension (9) IMELDA (acute kidney injury) Plan Patient has HD done today and 3 liters removed. Urine out put is low. Acidosis is still not much better. Follow labs and HD as needed. Continue antibiotics as per ID. Avoid Nephrotoxins. Problem Qualifiers (1) Anemia: (2) Acute respiratory failure: Qualified Code: J96.00 - Acute respiratory failure, unspecified whether with hypoxia or hypercapnia Chantel Redmond MD Sep 30, 2016 16:46
[2016-09-30] MEDS: FOSPHENYTOIN INJ 100 MGPE in SODIUM CHLORIDE 0.9% INJ 50 ML IV SCH (18:55)
[2016-09-30 20:54] LABS: APTT (PATIENT) 58.8 SEC (24.3-30.1)
[2016-10-01] VITALS (18 sets, daily range): BP systolic 98–160; BP diastolic 60–99; PULSE 79–105; RESP 17–24; TEMP 97–98.2; O2SAT 97–100
[2016-10-01] MEDS: FOSPHENYTOIN INJ 100 MGPE in SODIUM CHLORIDE 0.9% INJ 50 ML IV SCH ×3 (00:58→17:29)
[2016-10-01] MEDS: VANCOMYCIN 500 MG VIAL (FOR ORAL USE ONLY) PO SCH ×4 (02:42→20:03)
[2016-10-01 03:05] LABS: AUTOMATED NEUTROPHIL # 8.3 TH/MM3 (1.8-7.7); BASOPHIL % 0.2 % (0.0-2.0); EOSINOPHIL # 0.2 TH/MM3 (0-0.4); EOSINOPHIL % 2.1 % (0.0-4.0); LYMPHOCYTE # 0.7 TH/MM3 (1.0-4.8); MEAN CELL VOLUME 83.3 FL (80.0-100.0); MEAN CORPUSCULAR HEMOGLOBIN 27.7 PG (27.0-34.0); MEAN CORPUSCULAR HGB CONC 33.2 % (32.0-36.0); MONO % 5.9 % (0.0-8.0); NEUT % 84.8 % (16.0-70.0); PLATELET COUNT 209 TH/MM3 (150-450); RED BLOOD COUNT 2.35 MIL/MM3 (4.00-5.30); RED CELL DISTRIBUTION WIDTH 17.7 % (11.6-17.2); WHITE BLOOD COUNT 9.8 TH/MM3 (4.0-11.0)
[2016-10-01 03:11] LABS: HEMO FLAGS AUTO DIFF
[2016-10-01 03:14] LABS: HEMATOCRIT 19.6 % (35.0-46.0)
[2016-10-01 03:15] LABS: APTT (PATIENT) 59.1 SEC (24.3-30.1)
[2016-10-01 03:31] LABS: ALKALINE PHOSPHATASE 127 U/L (45-117); ALT (GPT) 10 U/L (10-53); ANION GAP 21 MEQ/L (5-15); AST (GOT) 11 U/L (15-37); BICARBONATE 16.2 MEQ/L (21.0-32.0); BLOOD UREA NITROGEN 13 MG/DL (7-18); CHLORIDE 105 MEQ/L (98-107); GLOMERULAR FILTRATION RATE 39 ML/MIN (>89); MAGNESIUM 1.4 MG/DL (1.5-2.5); POTASSIUM 3.2 MEQ/L (3.5-5.1); SODIUM (NA) 142 MEQ/L (136-145); TOTAL BILIRUBIN ADULT 0.5 MG/DL (0.2-1.0)
[2016-10-01] MEDS: metroNIDAZOLE 500 MG INJ 100 ML IV SCH ×3 (03:34→20:03)
[2016-10-01] MEDS: MEROPENEM INJ 500 MG in SODIUM CHLORIDE 0.9% INJ 100 ML IV SCH ×3 (03:35→20:03)
[2016-10-01] MEDS: POTASSIUM PHOSPHATE/SODIUM PHOSPHATE 250 MG TAB PO SCH ×3 (05:53→17:28)
[2016-10-01] MEDS: METOCLOPRAMIDE HCL 10 MG/2 ML VIAL IV SCH ×3 (05:53→20:04)
[2016-10-01] MEDS: FREE WATER G-TUBE SCH ×3 (05:53→20:04)
--- NOTE | 2016-10-01 06:31 | RADRPT ---
EXAM DATE/TIME: 10/01/2016 05:10 [facility] COMPARISON: CHEST SINGLE AP, September 29, 2016, 15:12. INDICATIONS : Shortness of breath. MEDICAL HISTORY : Hypertension. Chronic obstructive pulmonary disease. Lupus SURGICAL HISTORY : section. ENCOUNTER: Subsequent ACUITY: 3 days PAIN SCORE: Non-responsive. LOCATION: Bilateral chest FINDINGS: Right jugular line and endotracheal tube noted. Small left effusion and left lower lobe consolidation identified and slightly progressed. CONCLUSION: Worsening consolidation and effusion on the left. Evan Navarro MD on October 01, 2016 at 6:29 Board Certified Radiologist. This report was verified electronically.
[2016-10-01] MEDS: CHLORHEXIDINE 0.12% (ORAL KIT) 15 ML CUP MT SCH ×2 (08:00→20:00)
[2016-10-01] MEDS: MULTIVITAMIN TAB PO SCH (08:36)
[2016-10-01] MEDS: LACTOBACILLUS ACIDOPHILUS TAB PO SCH ×3 (08:36→17:29)
[2016-10-01] MEDS: POTASSIUM CL 40 MEQ/30 ML LIQ UDC GT SCH (08:36)
[2016-10-01] MEDS: SODIUM CHLORIDE 0.9% FLUSH 5 ML FLUSH IV FLUSH SCH ×2 (08:37→20:04)
[2016-10-01] MEDS: CALAMINE/PRAMOXINE LOTION 180 ML BTL TOPICAL SCH ×2 (08:37→20:04)
[2016-10-01] MEDS: PETROLATUM 49%/ZINC OXIDE 15% 4 OUNCE TUBE TOPICAL SCH (08:37)
[2016-10-01 08:40] LABS: BANDS 28 % (0-6); BASOPHILS 2 % (0-2); EOSINOPHILS 1 % (0-4); METAMYELOCYTES 5 % (0-1); MYELOCYTES 1 % (0-0); NEUTROPHIL # MANUAL DIFF 8.2 TH/MM3 (1.8-7.7); PLATELET ESTIMATE SMEAR NORMAL (NORMAL); PLATELET MORPHOLOGY NORMAL (NORMAL); POLYS (SEG NEUTROPHILS) 50 % (16-70); SCAN/DIFF FINAL DIFF MANUAL; WBC DIFF SAMPLE 100
[2016-10-01 08:44] LABS: APTT (PATIENT) 54.4 SEC (24.3-30.1)
[2016-10-01] MEDS: BACITRACIN TOP OINT 15 GM TUBE TOP SCH ×2 (09:00→20:04)
[2016-10-01] MEDS: BETAMETHASONE DIPROPIONATE 0.05% CREAM 15 GM TOPICAL SCH ×2 (09:00→20:04)
[2016-10-01] MEDS: PANTOPRAZOLE SODIUM 40 MG VIAL IV PUSH SCH ×2 (12:00→15:45)
[2016-10-01 13:15] LABS: HEMATOCRIT 30.2 % (35.0-46.0); REVIEW FLAG FINAL
[2016-10-01] MEDS ORDERED: METOCLOPRAMIDE HCL 10 MG/2 ML VIAL ONE (14:13)
--- NOTE | 2016-10-01 14:23 | PD.RAD ---
Post Procedure Progress Note Pre Procedure Diagnosis: (1) Brain aneurysm Post Procedure Diagnosis: (1) Brain aneurysm Procedure Date: Oct 01, 2016 Supervising Radiologist: Reed Rico Proceduralist/Assist: RT Mendoza(R)(CV) Anesthesia: Local Plan of Activity Patient to Unit: Critical Care Patient Condition: Poor See PACS Report for procedural detail/treatment Feeding Tube G to GJ Placement Reed Rico MD Oct 01, 2016 14:23
[2016-10-01] MEDS ORDERED: IOHEXOL 350 MG/ML 50 ML BTL (for RAD DIAG) G-TUBE ONE (14:40)
--- NOTE | 2016-10-01 14:59 | HHI.HCPN ---
Reason for visit a. To assist with evaluation and management of symptoms including: pain b. To assist medical decision maker(s) with: better understanding of current medical conditions; weighing benefits/burdens of medical treatment options; making medical treatment decisions. Subjective/Interval History Pt c xray shows worsening infection of the left. Pt went to get g tube to GJ tube. Pt on cpap trials. EEG shows subclinical seizures. Pt still unresponsive, on ventilator not on sedation. Not on Cr. Family/friend interactions Call Bonifacio Garcia (spouse and leave message). Advance Directives Living Will: Never completed Health Care Surrogate: Never completed Durable Power of Health Education Specialist: Never completed Objective Vital Signs Date Time Temp Pulse Resp B/P Pulse Ox O2 Delivery O2 Flow Rate FiO2 10/01/16 12:00 105 10/01/16 11:16 97 35 10/01/16 08:00 96 10/01/16 08:00 97.2 96 17 160/98 99 10/01/16 08:00 35 10/01/16 07:50 100 35 10/01/16 07:50 35 10/01/16 07:30 97.0 79 18 138/82 100 10/01/16 06:40 97.2 86 18 136/83 100 10/01/16 06:00 103 10/01/16 04:06 100 35 10/01/16 04:00 97.0 103 22 137/85 100 10/01/16 04:00 103 10/01/16 04:00 35 10/01/16 02:00 83 10/01/16 00:39 100 35 10/01/16 00:00 97.5 102 18 98/60 100 10/01/16 00:00 93 10/01/16 00:00 35 09/30/16 22:00 97 09/30/16 21:55 100 35 09/30/16 21:00 35 09/30/16 20:00 40 09/30/16 20:00 97 09/30/16 20:00 97.4 96 22 102/60 98 09/30/16 16:16 100 40 09/30/16 16:00 97.9 106 30 116/73 100 09/30/16 16:00 40 Intake & Output 10/01/16 10/01/16 07:00 19:00 Intake Total 1110 ml Output Total 475 ml Balance 635 ml IV Total 590 ml Tube Irrigant 120 ml Other 400 ml Output Urine Total 225 ml Stool Total 240 ml Drainage Total 10 ml Physical Exam CONSTITUTIONAL/GENERAL: This is an adequately nourished patient,intubated, eyes open but not tracking TUBES/LINES/DRAINS:wound vac, right IJ, et tube. SKIN: No jaundice, rashes, or lesions. Ecchymoses on upper extremities. No wounds seen anteriorly. Skin temperature appropriate. Not diaphoretic. HEAD: Atraumatic. Normocephalic. EYES: Open but not tracking. No scelera icterus. Fundi not examined. ENT: Hearing grossly normal. Nose without bleeding or purulent drainage. Throat ET tube NECK: Trachea midline. Supple, nontender. No palpable thyroid enlargement or nodularity. CARDIOVASCULAR: Regular rate and rhythm without murmurs, gallops, or rubs. No JVD. Peripheral pulses symmetric. RESPIRATORY/CHEST: Symmetric, decreased breath sound bilaterally. No wheezes, rales, or rhonchi. GASTROINTESTINAL: Abdomen soft, non-tender, on palpation. BS present. GENITOURINARY: Without palpable bladder distension. MUSCULOSKELETAL: edemetous upper and lower ext. LYMPHATICS: No palpable cervical or supraclavicular adenopathy. NEUROLOGICAL:Opens eyes, non communicative, does not follow commands PSYCHIATRIC: unable to evluate. Diagnostic Tests Laboratory Laboratory Tests Test 09/28/16 09/29/16 09/29/16 09/29/16 16:40 04:20 11:50 14:30 White Blood Count 15.8 TH/MM3 15.5 TH/MM3 21.3 TH/MM3 (4.0-11.0) (4.0-11.0) (4.0-11.0) Red Blood Count 3.08 MIL/MM3 2.85 MIL/MM3 3.15 MIL/MM3 (4.00-5.30) (4.00-5.30) (4.00-5.30) Hemoglobin 8.6 GM/DL 7.8 GM/DL 8.6 GM/DL (11.6-15.3) (11.6-15.3) (11.6-15.3) Hematocrit 26.1 % 24.0 % 26.8 % (35.0-46.0) (35.0-46.0) (35.0-46.0) Mean Corpuscular Volume 84.5 FL 84.3 FL 85.0 FL (80.0-100.0) (80.0-100.0) (80.0-100.0) Mean Corpuscular Hemoglobin 27.7 PG 27.4 PG 27.2 PG (27.0-34.0) (27.0-34.0) (27.0-34.0) Mean Corpuscular Hemoglobin 32.8 % 32.5 % 31.9 % Concent (32.0-36.0) (32.0-36.0) (32.0-36.0) Red Cell Distribution Width 17.5 % 17.5 % 17.6 % (11.6-17.2) (11.6-17.2) (11.6-17.2) Platelet Count 285 TH/MM3 288 TH/MM3 348 TH/MM3 (150-450) (150-450) (150-450) Mean Platelet Volume 8.3 FL 8.2 FL 8.4 FL (7.0-11.0) (7.0-11.0) (7.0-11.0) Neutrophils (%) (Auto) 90.8 % 91.5 % % (16.0-70.0) (16.0-70.0) (16.0-70.0) Lymphocytes (%) (Auto) 4.4 % 3.2 % % (9.0-44.0) (9.0-44.0) (9.0-44.0) Monocytes (%) (Auto) 3.4 % (0.0-8.0) 3.5 % (0.0-8.0) % (0.0-8.0) Eosinophils (%) (Auto) 1.0 % (0.0-4.0) 1.5 % (0.0-4.0) % (0.0-4.0) Basophils (%) (Auto) 0.4 % (0.0-2.0) 0.3 % (0.0-2.0) % (0.0-2.0) Neutrophils # (Auto) 14.3 TH/MM3 14.2 TH/MM3 TH/MM3 (1.8-7.7) (1.8-7.7) (1.8-7.7) Lymphocytes # (Auto) 0.7 TH/MM3 0.5 TH/MM3 TH/MM3 (1.0-4.8) (1.0-4.8) (1.0-4.8) Monocytes # (Auto) 0.5 TH/MM3 0.5 TH/MM3 TH/MM3 (0-0.9) (0-0.9) (0-0.9) Eosinophils # (Auto) 0.2 TH/MM3 0.2 TH/MM3 TH/MM3 (0-0.4) (0-0.4) (0-0.4) Basophils # (Auto) 0.1 TH/MM3 0.0 TH/MM3 TH/MM3 (0-0.2) (0-0.2) (0-0.2) CBC Comment AUTO DIFF AUTO DIFF AUTO DIFF Differential Total Cells 100 100 100 Counted Neutrophils % (Manual) 67 % (16-70) 60 % (16-70) 68 % (16-70) Band Neutrophils % 16 % (0-6) 28 % (0-6) 22 % (0-6) Lymphocytes % 9 % (9-44) 3 % (9-44) Monocytes % 4 % (0-8) 5 % (0-8) 1 % (0-8) Eosinophils % 1 % (0-4) Neutrophils # (Manual) 13.6 TH/MM3 14.6 TH/MM3 20.4 TH/MM3 (1.8-7.7) (1.8-7.7) (1.8-7.7) Myelocytes 3 % (0-0) 3 % (0-0) 5 % (0-0) Differential Comment FINAL DIFF FINAL DIFF FINAL DIFF MANUAL MANUAL MANUAL Platelet Estimate NORMAL NORMAL NORMAL (NORMAL) (NORMAL) (NORMAL) Platelet Morphology Comment NORMAL NORMAL ENLARGED (NORMAL) (NORMAL) (NORMAL) Ovalocytes 1+ (NORMAL) Basophils % 1 % (0-2) Metamyelocytes 3 % (0-1) 1 % (0-1) Activated Partial 61.8 SEC 49.5 SEC 48.3 SEC Thromboplast Time (24.3-30.1) (24.3-30.1) (24.3-30.1) Sodium Level 140 MEQ/L (136-145) Potassium Level 3.9 MEQ/L (3.5-5.1) Chloride Level 110 MEQ/L (98-107) Carbon Dioxide Level 10.1 MEQ/L (21.0-32.0) Anion Gap 20 MEQ/L (5-15) Blood Urea Nitrogen 34 MG/DL (7-18) Creatinine 2.37 MG/DL (0.50-1.00) Estimat Glomerular Filtration 21 ML/MIN (>89) Rate Random Glucose 108 MG/DL (74-106) Calcium Level 7.6 MG/DL (8.5-10.1) Total Bilirubin 0.5 MG/DL (0.2-1.0) Aspartate Amino Transf 22 U/L (15-37) (AST/SGOT) Alanine Aminotransferase 12 U/L (10-53) (ALT/SGPT) Alkaline Phosphatase 88 U/L (45-117) Total Protein 5.6 GM/DL (6.4-8.2) Albumin 2.2 GM/DL (3.4-5.0) Random Vancomycin Level 36.8 COMMENT Nucleated Red Blood Cells 1 /100 WBC (0-0) Toxic Vacuolation PRESENT (NONE SEEN) Hepatitis A IgM Antibody NEGATIVE (NEGATIVE) Hepatitis B Surface Antigen NEGATIVE (NEGATIVE) Hepatitis B Core IgM Antibody NEGATIVE (NEGATIVE) Hepatitis C Antibody REACTIVE (NEGATIVE) Test 09/29/16 09/30/16 09/30/16 09/30/16 21:30 02:20 04:00 13:20 Hemoglobin 8.2 GM/DL 8.0 GM/DL (11.6-15.3) (11.6-15.3) Hematocrit 25.0 % 24.4 % (35.0-46.0) (35.0-46.0) Activated Partial 60.6 SEC GREATER THAN Thromboplast Time (24.3-30.1) 153.4 SEC (24.3-30.1) White Blood Count 19.9 TH/MM3 (4.0-11.0) Red Blood Count 2.93 MIL/MM3 (4.00-5.30) Mean Corpuscular Volume 83.3 FL (80.0-100.0) Mean Corpuscular Hemoglobin 27.1 PG (27.0-34.0) Mean Corpuscular Hemoglobin 32.6 % Concent (32.0-36.0) Red Cell Distribution Width 18.0 % (11.6-17.2) Platelet Count 300 TH/MM3 (150-450) Mean Platelet Volume 8.5 FL (7.0-11.0) Neutrophils (%) (Auto) 90.0 % (16.0-70.0) Lymphocytes (%) (Auto) 3.5 % (9.0-44.0) Monocytes (%) (Auto) 4.6 % (0.0-8.0) Eosinophils (%) (Auto) 1.6 % (0.0-4.0) Basophils (%) (Auto) 0.3 % (0.0-2.0) Neutrophils # (Auto) 17.9 TH/MM3 (1.8-7.7) Lymphocytes # (Auto) 0.7 TH/MM3 (1.0-4.8) Monocytes # (Auto) 0.9 TH/MM3 (0-0.9) Eosinophils # (Auto) 0.3 TH/MM3 (0-0.4) Basophils # (Auto) 0.1 TH/MM3 (0-0.2) CBC Comment AUTO DIFF Differential Total Cells 100 Counted Neutrophils % (Manual) 78 % (16-70) Band Neutrophils % 12 % (0-6) Basophils % 1 % (0-2) Neutrophils # (Manual) 19.7 TH/MM3 (1.8-7.7) Metamyelocytes 8 % (0-1) Promyelocytes 1 % (0-0) Nucleated Red Blood Cells 1 /100 WBC (0-0) Differential Comment FINAL DIFF MANUAL Platelet Estimate NORMAL (NORMAL) Platelet Morphology Comment NORMAL (NORMAL) Ovalocytes 1+ (NORMAL) Sodium Level 141 MEQ/L (136-145) Potassium Level 3.8 MEQ/L (3.5-5.1) Chloride Level 108 MEQ/L (98-107) Carbon Dioxide Level 11.9 MEQ/L (21.0-32.0) Anion Gap 21 MEQ/L (5-15) Blood Urea Nitrogen 24 MG/DL (7-18) Creatinine 2.06 MG/DL (0.50-1.00) Estimat Glomerular Filtration 25 ML/MIN (>89) Rate Random Glucose 87 MG/DL (74-106) Calcium Level 7.6 MG/DL (8.5-10.1) Magnesium Level 1.4 MG/DL (1.5-2.5) Total Bilirubin 0.5 MG/DL (0.2-1.0) Aspartate Amino Transf 21 U/L (15-37) (AST/SGOT) Alanine Aminotransferase 12 U/L (10-53) (ALT/SGPT) Alkaline Phosphatase 100 U/L (45-117) Total Protein 5.5 GM/DL (6.4-8.2) Albumin 1.9 GM/DL (3.4-5.0) Test 09/30/16 10/01/16 10/01/16 10/01/16 17:00 02:59 05:18 08:22 Activated Partial 58.8 SEC 59.1 SEC 54.4 SEC Thromboplast Time (24.3-30.1) (24.3-30.1) (24.3-30.1) White Blood Count 9.8 TH/MM3 (4.0-11.0) Red Blood Count 2.35 MIL/MM3 (4.00-5.30) Hemoglobin 6.5 GM/DL (11.6-15.3) Hematocrit 19.6 % (35.0-46.0) Mean Corpuscular Volume 83.3 FL (80.0-100.0) Mean Corpuscular Hemoglobin 27.7 PG (27.0-34.0) Mean Corpuscular Hemoglobin 33.2 % Concent (32.0-36.0) Red Cell Distribution Width 17.7 % (11.6-17.2) Platelet Count 209 TH/MM3 (150-450) Mean Platelet Volume 8.3 FL (7.0-11.0) Neutrophils (%) (Auto) 84.8 % (16.0-70.0) Lymphocytes (%) (Auto) 7.0 % (9.0-44.0) Monocytes (%) (Auto) 5.9 % (0.0-8.0) Eosinophils (%) (Auto) 2.1 % (0.0-4.0) Basophils (%) (Auto) 0.2 % (0.0-2.0) Neutrophils # (Auto) 8.3 TH/MM3 (1.8-7.7) Lymphocytes # (Auto) 0.7 TH/MM3 (1.0-4.8) Monocytes # (Auto) 0.6 TH/MM3 (0-0.9) Eosinophils # (Auto) 0.2 TH/MM3 (0-0.4) Basophils # (Auto) 0.0 TH/MM3 (0-0.2) CBC Comment AUTO DIFF Differential Total Cells 100 Counted Neutrophils % (Manual) 50 % (16-70) Band Neutrophils % 28 % (0-6) Lymphocytes % 7 % (9-44) Monocytes % 6 % (0-8) Eosinophils % 1 % (0-4) Basophils % 2 % (0-2) Neutrophils # (Manual) 8.2 TH/MM3 (1.8-7.7) Metamyelocytes 5 % (0-1) Myelocytes 1 % (0-0) Differential Comment FINAL DIFF MANUAL Platelet Estimate NORMAL (NORMAL) Platelet Morphology Comment NORMAL (NORMAL) Sodium Level 142 MEQ/L (136-145) Potassium Level 3.2 MEQ/L (3.5-5.1) Chloride Level 105 MEQ/L (98-107) Carbon Dioxide Level 16.2 MEQ/L (21.0-32.0) Anion Gap 21 MEQ/L (5-15) Blood Urea Nitrogen 13 MG/DL (7-18) Creatinine 1.39 MG/DL (0.50-1.00) Estimat Glomerular Filtration 39 ML/MIN (>89) Rate Random Glucose 101 MG/DL (74-106) Calcium Level 7.6 MG/DL (8.5-10.1) Magnesium Level 1.4 MG/DL (1.5-2.5) Total Bilirubin 0.5 MG/DL (0.2-1.0) Aspartate Amino Transf 11 U/L (15-37) (AST/SGOT) Alanine Aminotransferase 10 U/L (10-53) (ALT/SGPT) Alkaline Phosphatase 127 U/L (45-117) Total Protein 5.4 GM/DL (6.4-8.2) Albumin 2.5 GM/DL (3.4-5.0) Lipase 137 U/L (73-393) Blood Type A POSITIVE Antibody Screen NEGATIVE Crossmatch Leukocyte-Reduced Red Blood Cells Blood Bank Comment Test 10/01/16 12:53 Hemoglobin 10.5 GM/DL (11.6-15.3) Hematocrit 30.2 % (35.0-46.0) Result Diagram: 10/01/16 1253 10/01/16 0259 Assessment and Plan Disease Oriented Problem List: (1) Acute respiratory failure Comment: PE, pulmonary nodules, HCAP, worsening consolidation of the left. (2) Pulmonary embolism (3) Severe sepsis (4) COPD (chronic obstructive pulmonary disease) (5) Pancreatitis (6) IMELDA (acute kidney injury) Comment: HD (7) Infected decubitus ulcer Comment: Diverting colostomy in 07/15/16 for sacral decubitus ulcer. Revision 08/13/[address] Faulkner. (8) History of CVA (cerebrovascular accident) Symptom Scale: Pertinent Non-Medical Issues Psychosocial: Spiritual: Legal: Ethical issues impacting care: Important Contacts Spouse [phone] DCF [phone] of abdomen and pelvis showed evidence of acute pancreatitis and large perileostomy hernia. Long hospital course of encephalopathy, sacral decubitis ulcer requriing diverting colostomy and revision. Complicated by sepsis, encephlopath, now sepsis, multiorgan failure, Acute hypoxemic respiratory failure, Right upper lobe pulmonary embolism, Multiple bilateral pulmonary nodules, Left lower lobe pneumonia/effusion/HCAP . Per internal sales, prognosis is poor. Code Status: Full Code Plan == capacity: does not have capacity to make medical decisions. == Adi care decision maker: (proxy) . I have consulted case management as there is documentation of neglect 09/30. Per case management documented 09/30 " CM CONSULTED TO LOCATE/RESEARCH A PAST COMPLAINT WITH THE DCF AND ALSO CONFIRM DECISION MAKER. CM THE DCF AT [phone] AND SPOKE WITH CESAR ELLINGTON. THE CASE NUMBER WAS [id number]. THE INVESTIGATION IS CLOSED HOWEVER IT REVEALED THAT THE PATIENT WAS SELF NEGLIGENT.THERE WAS NO EVIDENCE TO SUPPORT THAT THE OR ANY OTHER FAMILY MEMBER WAS NEGLIGENT. CM WILL NOTIFY PALLIATIVE CARE OF THE ABOVE CONVERSATION." TEENA AJ RN would be decision maker. == pain and dyspnea- defer to internal sales. == - call and left message to Mr. Garcia's voicemail. == Palliative care will continue to follow. Time Spent Total Floor Time (mins): 30 Attestation To help prompt me to consider important information that might be impacting today's encounter and assessment, information from prior notes written by myself or my colleagues may have been "brought forward" into today's note. My signature on this note, however, is an attestation that I personally performed the exam, history, and/or decision-making noted today, and, unless otherwise indicated, the interactions with patient, family, and staff as well as the review of records all occurred today. I also attest that the listed assessment and stated plan reflect my best clinical judgment today based on the combination of historical information, prior notes, and today's exam/ interactions. When time spent is documented, it refers only to time spent today by the signer, or if indicated, combined time spent today by collaborating physician/nurse practitioner. Teja Espinosa MD Oct 01, 2016 14:59 == Adi care decision maker: (proxy) DCF has closed case. == pain and dyspnea- defer to internal sales. == Palliative care will continue to follow. Attestation To help prompt me to consider important information that might be impacting today's encounter and assessment, information from prior notes written by myself or my colleagues may have been "brought forward" into today's note. My signature on this note, however, is an attestation that I personally performed the exam, history, and/or decision-making noted today, and, unless otherwise indicated, the interactions with patient, family, and staff as well as the review of records all occurred today. I also attest that the listed assessment and stated plan reflect my best clinical judgment today based on the combination of historical information, prior notes, and today's exam/ interactions. When time spent is documented, it refers only to time spent today by the signer, or if indicated, combined time spent today by collaborating physician/nurse practitioner. Teja Espinosa MD Oct 01, 2016 14:59
[2016-10-01] MEDS: MICAFUNGIN INJ 150 MG in SODIUM CHLORIDE 0.9% INJ 100 ML IV SCH (15:26)
[2016-10-01] MEDS: HEPARIN-D5W INJ 250 ML IV SCH (15:27)
--- NOTE | 2016-10-01 15:44 | HHI.GIFU ---
Subjective Remarks Pt just got back from IR, had G tube converted to G/J tube. Pt had another drop in hh. Nurse reports that she has not seen any obvious bleeding. Did aspirate blood clots and red blood from G tube, although this was followed by bilious material. Green liquid stool in colostomy. (Brooklyn Lizama) Objective Vitals I&O Vital Signs Date Time Temp Pulse Resp B/P Pulse Ox O2 Delivery O2 Flow Rate FiO2 10/01/16 14:52 100 10/01/16 12:00 105 10/01/16 12:00 97.5 105 19 126/82 98 10/01/16 11:16 97 35 10/01/16 08:00 96 10/01/16 08:00 97.2 96 17 160/98 99 10/01/16 08:00 35 10/01/16 07:50 100 35 10/01/16 07:50 35 10/01/16 07:30 97.0 79 18 138/82 100 10/01/16 06:40 97.2 86 18 136/83 100 10/01/16 06:00 103 10/01/16 04:06 100 35 10/01/16 04:00 97.0 103 22 137/85 100 10/01/16 04:00 103 10/01/16 04:00 35 10/01/16 02:00 83 10/01/16 00:39 100 35 10/01/16 00:00 97.5 102 18 98/60 100 10/01/16 00:00 93 10/01/16 00:00 35 09/30/16 22:00 97 09/30/16 21:55 100 35 09/30/16 21:00 35 09/30/16 20:00 40 09/30/16 20:00 97 09/30/16 20:00 97.4 96 22 102/60 98 09/30/16 16:16 100 40 09/30/16 16:00 97.9 106 30 116/73 100 09/30/16 16:00 40 I/O 09/30/16 09/30/16 09/30/16 10/01/16 10/01/16 10/01/16 07:00 15:00 23:00 07:00 15:00 23:00 Intake Total 680 ml 492 ml 516 ml 594 ml 978 ml Output Total 175 ml 3190 ml 120 ml 355 ml 100 ml Balance 505 ml -2698 ml 396 ml 239 ml 878 ml Intake Oral 0 ml IV Total 430 ml 252 ml 256 ml 334 ml 478 ml Tube Feeding 0 ml Packed Cells 500 ml Tube Irrigant 40 ml 60 ml 60 ml Other 250 ml 200 ml 200 ml 200 ml Output Urine Total 125 ml 175 ml 100 ml 125 ml 25 ml Stool Total 25 ml 10 ml 20 ml 220 ml 75 ml Gastric Drainage Total 0 ml Drainage Total 25 ml 5 ml 0 ml 10 ml 0 ml Hemodialysis 3000 ml Laboratory Laboratory Tests Test 09/30/16 10/01/16 10/01/16 10/01/16 17:00 02:59 05:18 08:22 Activated Partial 58.8 59.1 54.4 Thromboplast Time White Blood Count 9.8 Red Blood Count 2.35 Hemoglobin 6.5 Hematocrit 19.6 Mean Corpuscular Volume 83.3 Mean Corpuscular Hemoglobin 27.7 Mean Corpuscular Hemoglobin 33.2 Concent Red Cell Distribution Width 17.7 Platelet Count 209 Mean Platelet Volume 8.3 Neutrophils (%) (Auto) 84.8 Lymphocytes (%) (Auto) 7.0 Monocytes (%) (Auto) 5.9 Eosinophils (%) (Auto) 2.1 Basophils (%) (Auto) 0.2 Neutrophils # (Auto) 8.3 Lymphocytes # (Auto) 0.7 Monocytes # (Auto) 0.6 Eosinophils # (Auto) 0.2 Basophils # (Auto) 0.0 CBC Comment AUTO DIFF Differential Total Cells 100 Counted Neutrophils % (Manual) 50 Band Neutrophils % 28 Lymphocytes % 7 Monocytes % 6 Eosinophils % 1 Basophils % 2 Neutrophils # (Manual) 8.2 Metamyelocytes 5 Myelocytes 1 Differential Comment FINAL DIFF MANUAL Platelet Estimate NORMAL Platelet Morphology Comment NORMAL Sodium Level 142 Potassium Level 3.2 Chloride Level 105 Carbon Dioxide Level 16.2 Anion Gap 21 Blood Urea Nitrogen 13 Creatinine 1.39 Estimat Glomerular Filtration 39 Rate Random Glucose 101 Calcium Level 7.6 Magnesium Level 1.4 Total Bilirubin 0.5 Aspartate Amino Transf 11 (AST/SGOT) Alanine Aminotransferase 10 (ALT/SGPT) Alkaline Phosphatase 127 Total Protein 5.4 Albumin 2.5 Lipase 137 Blood Type A POSITIVE Antibody Screen NEGATIVE Crossmatch Leukocyte-Reduced Red Blood Cells Blood Bank Comment Test 10/01/16 12:53 Hemoglobin 10.5 Hematocrit 30.2 Date/Time Procedure Status Source Growth 09/27/16 08:56 Stool Occult Blood (AFTAB) - Final Complete Stool Stool HEMOCCULT NEGATIVE Imaging Last Impressions Chest X-Ray 10/01/16 0600 Signed Impressions: Service Date/Time: Saturday, October 01, 2016 05:10 - CONCLUSION: Worsening consolidation and effusion on the left. Evan Navarro MD Head CT 09/29/16 0000 Signed Impressions: Service Date/Time: Thursday, September 29, 2016 12:54 - CONCLUSION: 1. No significant change compared to 09/25/16. 2. Extensive bilateral encephalomalacia (right worse than left) predominantly within the frontal lobes and parietal occipital lobes as well as the right temporal lobe. 3. Extensive periventricular and subcortical white matter small vessel ischemic changes bilaterally. 4. Scattered old lacunar infarcts within the bilateral basal ganglia. 5. Stable ventriculomegaly. 6. No acute hemorrhage, midline shift , or extraaxial fluid collections. Ernie Mathis MD Abdomen/Pelvis CT 09/29/16 0000 Signed Impressions: Service Date/Time: Thursday, September 29, 2016 13:01 - CONCLUSION: 1. Large hernia adjacent to the colostomy without abscess. 2. There is no free air. There is no evidence for an obstruction. 3. There is increasing induration around the pancreas. Correlation with laboratory values is suggested. Vinay Avalos MD FACR Upper Extremity Ultrasound 09/26/16 0000 Signed Impressions: Service Date/Time: Monday, September 26, 2016 20:17 - CONCLUSION: No DVT or superficial venous thrombosis is identified within either upper extremity. Please note that the left cephalic vein is not visualized. Aidan Churchill MD CT Angiography 09/26/16 0000 Signed Impressions: Service Date/Time: Monday, September 26, 2016 15:12 - CONCLUSION: 1. Several small pulmonary emboli in the right upper lobe. 2. Multiple bilateral pulmonary parenchymal nodules. Both neoplastic and inflammatory etiologies are in the differential diagnosis. 3. Mildly prominent right hilar lymph node, likely reactive. 4. Bilateral lower lobe atelectasis and small left pleural effusion. 5. Possible mass in the medial gastric fundus. Rony Espinoza MD Lower Extremity Ultrasound 09/25/16 1622 Signed Impressions: Service Date/Time: September 17:26 - CONCLUSION: No DVT of the left lower extremity. Aidan Felipe MD Vena Cav[facility] 09/22/16 1702 Signed Impressions: Service Date/Time: Thursday, September 22, 2016 15:50 - CONCLUSION: 1. Unsuccessful port removal. Reed Rico MD Abdomen X-Ray 09/16/16 0000 Signed Impressions: Service Date/Time: Friday, September 16, 2016 16:55 - CONCLUSION: G-tube in place in the body the stomach properly positioned David Rivera MD Physical Exam HEENT: Normocephalic; atraumatic; no jaundice. CHEST: Scattered rhonchi, OETT to vent. CARDIAC: ST ABDOMEN: Soft, nondistended, nontender; no hepatosplenomegaly; PEG tube site without redness, swelling, or drainage. Aspirated blood clot and red blood followed by bilious material from G tube, colostomy large hernia, green liquid stool EXTREMITIES: Generalized edema. SKIN: Multiple ecchymotic area [employer] YARD: Sedated on a vent (Brooklyn Lizama) Assessment and Plan Plan ASSESSMENT: - Acute pancreatitis, most likely secondary to sepsis/abx use. Rpt. CT scan abdomen/pelvis (09/29/16)---> 1. Large hernia adjacent to the colostomy without abscess. 2. There is no free air. There is no evidence for an obstruction. 3. There is increasing induration around the pancreas. Correlation with laboratory values is suggested. Pt with persistent leukocytosis, wbc 16.2 Lipase 137. S/P conversion of G tube to G/J tube today by IR. - Anemia with drop in Hgb. H/H from 8.0/24.4 to 6.5/19.6. S/P 2 more units today and now is 10.5/30.2. Did aspirate blood clots and then some red blood followed by bilious material from G tube. Unsure if this is from tube exchange or if there is other GI bleeding going on. She is requiring anticoagulation. Will schedule for EGD in am to further evaluation. - ? fundic mass, ? pseudocyst - Pt had EGD with peg tube placement (07/07/16), this showed gastritis but no other abnormalities CT pulmonary angiogram showed right upper lobe pulmonary emboli, multiple pulmonary nodules infectious versus inflammatory versus malignant, and possible gastric fundus mass. CT abdomen and pelvis showed evidence of acute pancreatitis and large yary- ileostomy hernia. Currently patient is sedated on a vent, not stable for any procedures. S/P repeat CT of abdomen as above. - Dysphagia/malnourished. S/P EGD/PEG (07/07/16). S/P conversion of peg to G/J tube. - C-diff. WBC improving. Vanco and Flagyl - PE- Heparin - Long hospital course complicated by several episodes of sepsis, per [facility] - Respiratory failure- intubated per [facility] - Decubitus ulcers on her sacrum, buttocks, heels. Plastic surgery consulted and managed wounds with wound vac; underwent laparoscopic diverting colostomy . On 08/13 she underwent colostomy revision per Dr. Faulkner due to peristomal hernia. Wound vac to sacral wound Plan: - Plan for EGD in am - Obtain consents - NPO after MN - Hold heparin after MN - Protonix 40mg IV BID - Monitor HH - Transfuse as necessary - Supportive care - Further recommendations to follow based on results of above - Patient seen and examined by Dr. Pascal and myself and this note is written on his behalf. (Brooklyn Lizama) Physician Comments Seen and examined with Ms. Dl YIN, acute drop in H/H, some clots in G tube. Transfuse as needed. EGD planned for tomorrow. (Charito Pascal MD) [place] Lizama Oct 01, 2016 15:44 Charito Pascal MD Oct 01, 2016 17:09
--- NOTE | 2016-10-01 16:33 | HHI.CCPN ---
Subjective Remarks/Hospital Course 60-year-old female transferred to [facility] after Halicat was called due to acute hypoxemic respiratory failure and acute metabolic encephalopathy most likely secondary to severe sepsis. Patient was previously seen by critical care on August 14, 2016. Patient has past medical history significant for cerebral aneurysm repair, seizures, HTN, Hep C, tobacco abuse and is aphasic at baseline, left hemiparesis who originally presented to [facility] on 05/31/16 with failure to thrive, sepsis, decubitus ulcers on her sacrum, buttocks, heels. Plastic surgery consulted and managed wounds with wound vac; underwent laparoscopic diverting colostomy 07/15/16. On 08/13 she underwent colostomy revision per Dr. Faulkner due to peristomal hernia. On last ICU admission for respiratory failure and hypotension was seen by Dr. Vega. Per her notes postintubation patient developed mucous plug on the R requiring therapeutic bronchoscopy. Patient was extubated and later transferred to hospitalist service next day. Had a prolonged hospital course since then complicated with multiple sepsis episodes, including gram-negative bacteremia. BAL from 08/14/16 bronchoscopy grew Proteus mirabilis, ESBL Klebsiella and MSSA which was treated in consult with ID. Blood cultures from 08/14/16 grew Proteus mirabilis. Since then other pertinent cultures were blood culture positive for Proteus on , urine culture positive for Proteus on 09/10/15. Critical care medicine was consulted 2/3 after a Halicat. Patient became more hypoxemic with sats dropping to low 80s and was placed on 100% percent nonrebreather. PO2 on 100% nonrebreather was only 70. I evaluated the patient once she arrived in the ICU. Patient was in respiratory distress, with an altered mental status, not responding to painful stimuli. Patient was emergently intubated and placed on mechanical ventilation. I also placed an emergent right subclavian central line. Post intubation blood pressure dropped to systolic 80s and I placed her on Levophed. I discussed case extensively with ID Dr. Rascon. Patient will be placed on Vanco, Meropenem, Flagyl and Micafungin. A CT pulmonary angiogram and CT abdomen pelvis has been ordered SUBJ 09/27: Emergently intubated and placed on mechanical ventilation yesterday for acute hypoxemic respiratory failure, failure to protect airway. CT pulmonary angiogram showed right upper lobe pulmonary emboli, multiple pulmonary nodules infectious versus inflammatory versus malignant, and possible gastric fundus mass. CT abdomen and pelvis showed evidence of acute pancreatitis and large yary-ileostomy hernia. Patient remains in septic shock on Levophed and vasopressin. Chemistry pending today 09/28: Remains critically ill, hemoglobin dropped from 8.2-6.3, no obvious external bleeding. Renal failure worsening. On IV heparin, patient remains unresponsive off sedation. Need CT abdomen pelvis to rule out retroperitoneal bleed, CT head to rule out intracranial bleed 09/29: Received 1 unit PRBC yesterday, hemoglobin is 7.[address] abdomen pelvis and CT head pending at this time. Oliguric with 15 KG weight gain, severely acidemic with bicarbonate of 10. Creatinine increased to 2.4. Discussed with nephrology will start hemodialysis today 09/30: EEG 09/29 Significant right central seizure focus. Cerebyx 1 GM loading dose and 100, 2 mg IV Ativan. Her AMS most likely from subclinical seizures. Remains afebrile and off pressors. Tachycardic. No improvement in neuro. Eyes spontaneously open, occasionally moves right lower extremity but no withdrawal in right upper or lower. Urine output 475 mL. All cultures since 09/26 had been negative 10/01: Hemoglobin 6.5 today, received 2 units of blood with recheck 10.5. After GJ tube was placed, GI aspirated blood from G portion. Plan for probable EGD tomorrow. Off pressors. Encephalopathy not improved. EEG repeated today Report pending Objective Vital Signs Date Time Temp Pulse Resp B/P Pulse Ox O2 Delivery O2 Flow Rate FiO2 10/01/16 15:33 100 33 10/01/16 12:00 105 10/01/16 12:00 97.5 19 126/82 09/27/16 07:00 Mechanical Ventilator Intake and Output 09/30/16 09/30/16 10/01/16 08:00 16:00 00:00 Intake Total 680 ml 492 ml 516 ml Output Total 175 ml 3190 ml 120 ml Balance 505 ml -2698 ml 396 ml Result Diagram: 10/01/16 1253 10/01/16 0259 Imaging Imaging studies reviewed Objective Remarks GENERAL: 61 yo female who is intubated, appears critically ill SKIN: Warm HEAD: Atraumatic. Normocephalic. EYES: 4 mm reactive bilaterally. No scleral icterus. No injection or drainage. R gaze preference ENT: No nasal bleeding or discharge. Mucous membranes dry, orotracheally intubated NECK: Trachea midline, scar from prior tracheostomy. CARDIOVASCULAR: Tachycardic. No murmurs rubs or gallops. Off pressors RESPIRATORY: Air entry diminished bilaterally with few coarse rhonchi, no wheezes GASTROINTESTINAL: Abdomen obese, soft, ostomy mucosa pink. GJ in place with site benign appearing. L hip wound vac in place. Large hernia associated with colostomy : [facility] in place. MUSCULOSKELETAL: Extremities without clubbing, cyanosis. Anasarca + NEUROLOGICAL: Eyes are spontaneously open, with R gaze preference. Very weakly withdraws right lower extremities do not follow commands. Chronic Left hemiparesis. Procedures PEG Colostomy 08/28- revision colostomy , repair of parastomal hernia Date of Insertion: Aug 29, 2016 A/P Assessment and Plan Assessment and Plan NEURO: Subclinical seizure Acute toxic metabolic encephalopathy History of cerebral aneurysm clip in 2007 Baseline L hemiparesis and aphasia -Encephalopathy secondary to subclinical seizure. EEG 09/29-Significant right central seizure focus. Repeat EEG today, report pending - 09/30 Cerebyx 1 GM loading dose followed by 100 mg IV q8. Dilantin level in am -Now off sedation for >72 hours -Repeat CT 09/29 negative RESP: Acute hypoxemic respiratory failure Right upper lobe pulmonary embolism Multiple bilateral pulmonary nodules Left lower lobe pneumonia/effusion/HCAP History of tracheostomy COPD, History of Tobacco abuse -PRVC TV 550 R 16 PEEP 5 FIO2 40%. Daily CPAP, but mental status won't permit extubation -Wean FiO2 for sat greater than 90%. DuoNeb every 6 hours. And when necessary. -IV Heparin PE protocol -F/U sputum culture-neg to date -Antibiotics per ID (vancomycin, Meropenem, Flagyl, micafungin) -Pulmonary consult appreciated-Dr Rg CV: Septic shock Fluid overload -09/26/16 Normal saline 3 L bolus -Off Norepinephrine, Vasopressin. Wean Stress dose hydrocortisone -2 D Echo 12/25/15 with EF 55-60%. Normal wall motion. Mild LVH -Hold hydralazine lisinopril and metoprolol -Left [id number] extraction was attempted 09/20/16. Catheter fractured below the clavicle. -Per Dr. 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 Increasing induration of Pancrease -s/p GJ tube placement -GI aspirated blood from G portion- possible endoscopy in am -On IV Flagyl for C. difficile colitis,added Fidaxomicin -Diverting colostomy 07/15/16. Revision 08/13/[address] Faulkner. -NPO except meds, -IV Protonix FEN/RENAL: Acute kidney injury. Metabolic acidemia Moderate protein energy malnutrition -[facility] in place. Monitor intake and output closely. Started HD 09/29 -Monitor BUN and creatinine daily, improving ID: Septic shock-resolved New LLL HCAP C Diff Colitis Prev HCAP 08/14 with ESBL Klebsiella, MSSA, Proteus Proteus bacteremia 08/14 and 09/20 Non stageable necrotic decubitus ulcer L buttocks - wound management per plastics /wound care UTI -Currently receiving Meropenem IV, Vanco IV, Flagyl IV, Dificid oral, Vanco oral and Micafungin IV. De escalate per ID Pertinent cultures: 2/3 blood urine and sputum cultures are neg to date 09/10 Urine Proteus 09/10 Blood Proteus 09/01 Urine C tropicalis 08/14 BAL Proteus, ESBL Klebsiella, MSSA 08/14 Blood Proteus 08/14 Urine Escherichia coli, Pseudomonas HEME: Acute PE Anemia requiring transfusion -Continue IV heparin .EGD am. -Monitor CBC-transfused 1 U PRBC 09/28, 2U 10/01/16 -U/s bilateral lower extremity negative for DVT 06/01, 09/25 -US Paddy upper ext neg 09/18, 09/26 except L cephalic vein not visualized ENDO: -Low-dose ISS for glycemic control while on steroids, accucheck q6. -Stress dose steroids-wean PROPH: -IV Hparin. Protonix 40 mg IV daily for stress ulcer prophylaxis. ACCESS: -Port in L chest removed09/20/16-unsuccessful, catheter fractured below clavicle. -R subclavian central line placed 09/26/16 -Placed R\IJ HD catheter 09/29/16 SOCIAL: -DCF previously notified for neglect CCT 40 minutes exclusive of separately billable procedures. Lashanda Bermudez MD Oct 01, 2016 16:33
--- NOTE | 2016-10-01 17:05 | HHI.NPPN ---
Subjective History of Present Illness 61-year-old female with past medical history of cerebellar aneurysm repair, seizure disorder, hypertension, hepatitis C. She was admitted on May 31 with failure to thrive. I was called to see the patient because of acute kidney injury. The patient had creatinine of 1.23 on admission which improved and then she had increase in the creatinine to 1.27 in June and on August 14 and then it went up to 2.0 and for the last week or so it has been going up again. The patient has had a prolonged hospital course with multiple episodes of infection including pneumonia, urinary tract infection, sepsis. Infectious Disease has been following and the patient has been getting antibiotics. Additional Remarks Patient is clinically same, on the vent. and remain unresponsive. Objective Data Data 09/30/16 10/01/16 19:00 07:00 Intake Total 492 ml 1110 ml Output Total 3190 ml 475 ml Balance -2698 ml 635 ml IV Total 252 ml 590 ml Tube Irrigant 40 ml 120 ml Other 200 ml 400 ml Output Urine Total 175 ml 225 ml Stool Total 10 ml 240 ml Drainage Total 5 ml 10 ml Hemodialysis 3000 ml Vital Signs Date Time Temp Pulse Resp B/P Pulse Ox O2 Delivery O2 Flow Rate FiO2 10/01/16 15:33 100 33 10/01/16 14:52 100 10/01/16 12:00 105 10/01/16 12:00 97.5 105 19 126/82 98 10/01/16 11:16 97 35 10/01/16 08:00 96 10/01/16 08:00 97.2 96 17 160/98 99 10/01/16 08:00 35 10/01/16 07:50 100 35 10/01/16 07:50 35 10/01/16 07:30 97.0 79 18 138/82 100 10/01/16 06:40 97.2 86 18 136/83 100 10/01/16 06:00 103 10/01/16 04:06 100 35 10/01/16 04:00 97.0 103 22 137/85 100 10/01/16 04:00 103 10/01/16 04:00 35 10/01/16 02:00 83 10/01/16 00:39 100 35 10/01/16 00:00 97.5 102 18 98/60 100 10/01/16 00:00 93 10/01/16 00:00 35 09/30/16 22:00 97 09/30/16 21:55 100 35 09/30/16 21:00 35 09/30/16 20:00 40 09/30/16 20:00 97 09/30/16 20:00 97.4 96 22 102/60 98 -: 10/01/16 1253 10/01/16 0259 Physical Exam General Appearance Remarks Intubated and off sedation. Eyes Eye Exam: Pupils Equal Throat Throat Exam: Oral Mucosa [employer] & Moist Pulmonary Resp Exam: Crackles, Rhonchi, Decreased Bases, Diminished Breath Sounds Cardiology CV Exam: Regular Gastrointestinal/Abdomen GI Exam: Soft, Non-Tender, Distended (with colostomy.) Extremeties Extremities Exam: Moderate Edema, Pitting Edema, Dependent Edema Neurologic Neuro Exam: Unresponsive Assessment/Plan Assessment Summary: IMELDA/Acute Renal Failure Electrolyte Assessment: Metabolic Acidosis Problem List: (1) Anemia (2) Lactic acidosis (3) Acute respiratory failure (4) Cellulitis (5) Edema (6) COPD (chronic obstructive pulmonary disease) (7) History of CVA (cerebrovascular accident) (8) Essential hypertension (9) IMELDA (acute kidney injury) Plan Patient has HD done yesterday. Urine out put is better Acidosis is improving. Continue antibiotics as per ID. Avoid Nephrotoxins. Follow the urine out put and BMP, HD as needed. D/W the patient's . Problem Qualifiers (1) Anemia: (2) Acute respiratory failure: Qualified Code: J96.00 - Acute respiratory failure, unspecified whether with hypoxia or hypercapnia Chantel Redmond MD Oct 01, 2016 17:05
[2016-10-01 18:04] LABS: C. DIFF EPI 027 PRESUMPTIVE NEGATIVE (NEGATIVE); C. DIFF TOXIN PCR NEGATIVE (NEGATIVE)
--- NOTE | 2016-10-01 18:20 | MG ---
cc: AUDELIA CARPENTER Lab No: Date: 10/01/2016 Age: Sex: F Race: ELECTROENCEPHALOGRAM NUMBER [id number] Hyperventilation not performed. Right side weaker than left. Upward gaze. Seizures. MEDICATIONS 1. Dilantin. 2. Vancomycin. DESCRIPTION A diffuse 6 Hz slowing is seen and there is some focal prominent slowing over the right central head region with at times some phase reversing sharp waves and spikes such as at epoch 35 on the transverse montage. I would say there appears to be a focal abnormality in that region. No prolonged seizure activity is noted. Photic stimulation is performed without significant posterior driving. Hyperventilation is not performed. IMPRESSION Some phase reversing sharps over the right central head region very prominent, could be a seizure focus for this patient. An abnormality in this region should be ruled out with MRI. MD JOANNA Marcial/ERICK /5:38 PM /6:17 PM
[2016-10-02] VITALS (16 sets, daily range): BP systolic 113–153; BP diastolic 76–114; PULSE 89–110; RESP 18–25; TEMP 96.6–98.4; O2SAT 96–100
[2016-10-02] MEDS: POTASSIUM PHOSPHATE/SODIUM PHOSPHATE 250 MG TAB PO SCH ×5 (00:29→23:59)
[2016-10-02] MEDS: FOSPHENYTOIN INJ 100 MGPE in SODIUM CHLORIDE 0.9% INJ 50 ML IV SCH ×4 (00:30→23:59)
[2016-10-02] MEDS: MEROPENEM INJ 500 MG in SODIUM CHLORIDE 0.9% INJ 100 ML IV SCH ×3 (03:07→19:57)
[2016-10-02] MEDS: PANTOPRAZOLE SODIUM 40 MG VIAL IV PUSH SCH ×2 (03:07→15:45)
[2016-10-02] MEDS: metroNIDAZOLE 500 MG INJ 100 ML IV SCH ×3 (03:07→19:57)
[2016-10-02] MEDS: VANCOMYCIN 500 MG VIAL (FOR ORAL USE ONLY) PO SCH ×4 (03:07→19:58)
--- NOTE | 2016-10-02 03:50 | RADRPT ---
EXAM DATE/TIME: 10/02/2016 02:52 [facility] COMPARISON: CHEST SINGLE AP, October 01, 2016, 5:10. INDICATIONS : Short of breath. MEDICAL HISTORY : Hypertension. Chronic obstructive pulmonary disease. Asthma. SURGICAL HISTORY : None. ENCOUNTER: Subsequent ACUITY: 2 weeks PAIN SCORE: Non-responsive. LOCATION: Bilateral chest FINDINGS: There is consolidation in the left lower lobe and a small left effusion suspected. Endotracheal tube, left subclavian line and right jugular catheter again noted. CONCLUSION: No significant change has occurred. Evan Navarro MD on October 02, 2016 at 3:48 Board Certified Radiologist. This report was verified electronically.
[2016-10-02 05:04] LABS: AUTOMATED NEUTROPHIL # 13.5 TH/MM3 (1.8-7.7); BASOPHIL # 0.1 TH/MM3 (0-0.2); BASOPHIL % 0.6 % (0.0-2.0); EOSINOPHIL # 0.4 TH/MM3 (0-0.4); EOSINOPHIL % 2.3 % (0.0-4.0); LYMPH % 5.2 % (9.0-44.0); LYMPHOCYTE # 0.8 TH/MM3 (1.0-4.8); MEAN CELL VOLUME 83.3 FL (80.0-100.0); MEAN CORPUSCULAR HEMOGLOBIN 27.2 PG (27.0-34.0); MEAN CORPUSCULAR HGB CONC 32.6 % (32.0-36.0); MONO % 7.6 % (0.0-8.0); NEUT % 84.3 % (16.0-70.0); PLATELET COUNT 214 TH/MM3 (150-450); RED BLOOD COUNT 3.84 MIL/MM3 (4.00-5.30); RED CELL DISTRIBUTION WIDTH 17.2 % (11.6-17.2)
[2016-10-02 05:10] LABS: HEMO FLAGS AUTO DIFF
[2016-10-02] MEDS: FREE WATER G-TUBE SCH ×3 (05:23→19:58)
[2016-10-02 05:25] LABS: APTT (PATIENT) 73.8 SEC (24.3-30.1); INTERNATIONAL NORMALIZED RATIO 2.6 RATIO; PROTHROMBIN TIME - PATIENT 30.3 SEC (9.8-11.6)
[2016-10-02 05:29] LABS: ALT (GPT) 9 U/L (10-53); ANION GAP 18 MEQ/L (5-15); AST (GOT) 11 U/L (15-37); BICARBONATE 17.5 MEQ/L (21.0-32.0); BLOOD UREA NITROGEN 16 MG/DL (7-18); CHLORIDE 107 MEQ/L (98-107); GLOMERULAR FILTRATION RATE 26 ML/MIN (>89); POTASSIUM 3.6 MEQ/L (3.5-5.1); SODIUM (NA) 142 MEQ/L (136-145)
[2016-10-02 05:31] LABS: ALKALINE PHOSPHATASE 118 U/L (45-117); TOTAL BILIRUBIN ADULT 0.7 MG/DL (0.2-1.0)
[2016-10-02] MEDS: METOCLOPRAMIDE HCL 10 MG/2 ML VIAL IV SCH ×3 (06:00→19:58)
[2016-10-02 07:17] LABS: BANDS 3 % (0-6); CORRECTED NUCLEATED RBC 1 /100 WBC (0-0); EOSINOPHILS 1 % (0-4); METAMYELOCYTES 4 % (0-1); MYELOCYTES 3 % (0-0); NEUTROPHIL # MANUAL DIFF 14.1 TH/MM3 (1.8-7.7); PLATELET ESTIMATE SMEAR NORMAL (NORMAL); PLATELET MORPHOLOGY NORMAL (NORMAL); POLYS (SEG NEUTROPHILS) 78 % (16-70); SCAN/DIFF FINAL DIFF MANUAL; WBC DIFF SAMPLE 100
[2016-10-02 07:18] LABS: KERATOCYTES OCC (NORMAL)
[2016-10-02] MEDS: POTASSIUM CL 40 MEQ/30 ML LIQ UDC GT SCH (07:57)
[2016-10-02] MEDS: MULTIVITAMIN TAB PO SCH (07:58)
[2016-10-02] MEDS: LACTOBACILLUS ACIDOPHILUS TAB PO SCH ×3 (07:58→17:19)
[2016-10-02] MEDS: CHLORHEXIDINE 0.12% (ORAL KIT) 15 ML CUP MT SCH ×2 (07:58→19:57)
[2016-10-02] MEDS: SODIUM CHLORIDE 0.9% FLUSH 5 ML FLUSH IV FLUSH SCH ×2 (07:58→19:57)
[2016-10-02] MEDS: ALBUMIN HUMAN 25% 25 GM/100 ML BAGP IV PRN ×2 (08:19→08:20)
[2016-10-02] MEDS: MANNITOL 12.5 GM/50 ML VIAL IV PRN (08:19)
[2016-10-02] MEDS: GENTAMICIN SULFATE (DIALYSIS USE ONLY) 20 MG/2 ML VIAL IV PRN (08:20)
[2016-10-02] MEDS: SODIUM CHLOR 0.9% 1000 ML INJ 1,000 ML IV PRN ×2 (08:21)
[2016-10-02] MEDS: SODIUM CHLORIDE 0.9% FLUSH 5 ML FLUSH IVF PRN (08:21)
[2016-10-02] MEDS: BETAMETHASONE DIPROPIONATE 0.05% CREAM 15 GM TOPICAL SCH ×2 (09:00→20:28)
--- NOTE | 2016-10-02 09:33 | RADRPT ---
EXAM DATE/TIME: 10/01/2016 13:54 [facility] COMPARISON: No previous studies available for comparison. INDICATIONS : Patient in need of gastrostomy tube conversion to a gastrojejunostomy tube. MEDICAL HISTORY : Hypercholesterolemia. Rheumatoid arthritis. Emphysema. CVA. Seizures.Migraines. COPD. Asthma. HTN. He patitis C. UTI. MRSA. Cdiff. SURGICAL HISTORY : section. Brain aneurysm repair. Gastrostomy tube placment. Tracheostomy ENCOUNTER: Subsequent ACUITY: 4-6 months PAIN SCORE: Nonresponsive. FLUORO TIME: 3.9 minutes CONTRAST: 20 cc Omnipaque (iohexol) 350 DEVICE(S): 1.) 22 Fr Transgastric tube PROCEDURE: 1. Fluoroscopically guided gastrostomy to gastrojejunostomy conversion 2. Conscious sedation with continuous EKG and oximetry monitoring. TECHNIQUE: Under sterile conditions and using aseptic technique a guidewire was passed through the previous tripp rostomy tube and the wire was manipulated into the small bowel. The prescribed gastrojejunostomy tube was placed over the guidewire. The balloon was inflated with appropriate volume of saline. Injection of positive contrast demonstrates good position of the gastric and jejunal sections of the tube. Conscious sedation was performed with the prescribed dosages and duration as above. EKG and oximetry remained stable throughout the procedure. CONCLUSION: 1. Uncomplicated gastrojejunostomy tube placement Reed Rico MD on October 02, 2016 at 9:31 Board Certified Radiologist. This report was verified electronically.
--- NOTE | 2016-10-02 10:48 | HHI.CCPN ---
Subjective Remarks/Hospital Course 60-year-old female transferred to [facility] after Halicat was called due to acute hypoxemic respiratory failure and acute metabolic encephalopathy most likely secondary to severe sepsis. Patient was previously seen by critical care on August 14, 2016. Patient has past medical history significant for cerebral aneurysm repair, seizures, HTN, Hep C, tobacco abuse and is aphasic at baseline, left hemiparesis who originally presented to [facility] on 05/31/16 with failure to thrive, sepsis, decubitus ulcers on her sacrum, buttocks, heels. Plastic surgery consulted and managed wounds with wound vac; underwent laparoscopic diverting colostomy 07/15/16. On 08/13 she underwent colostomy revision per Dr. Faulkner due to peristomal hernia. On last ICU admission for respiratory failure and hypotension was seen by Dr. Vega. Per her notes postintubation patient developed mucous plug on the R requiring therapeutic bronchoscopy. Patient was extubated and later transferred to hospitalist service next day. Had a prolonged hospital course since then complicated with multiple sepsis episodes, including gram-negative bacteremia. BAL from 08/14/16 bronchoscopy grew Proteus mirabilis, ESBL Klebsiella and MSSA which was treated in consult with ID. Blood cultures from 08/14/16 grew Proteus mirabilis. Since then other pertinent cultures were blood culture positive for Proteus on , urine culture positive for Proteus on 09/10/15. Critical care medicine was consulted 2/3 after a Halicat. Patient became more hypoxemic with sats dropping to low 80s and was placed on 100% percent nonrebreather. PO2 on 100% nonrebreather was only 70. I evaluated the patient once she arrived in the ICU. Patient was in respiratory distress, with an altered mental status, not responding to painful stimuli. Patient was emergently intubated and placed on mechanical ventilation. I also placed an emergent right subclavian central line. Post intubation blood pressure dropped to systolic 80s and I placed her on Levophed. I discussed case extensively with ID Dr. Rascon. Patient will be placed on Vanco, Meropenem, Flagyl and Micafungin. A CT pulmonary angiogram and CT abdomen pelvis has been ordered SUBJ 09/27: Emergently intubated and placed on mechanical ventilation yesterday for acute hypoxemic respiratory failure, failure to protect airway. CT pulmonary angiogram showed right upper lobe pulmonary emboli, multiple pulmonary nodules infectious versus inflammatory versus malignant, and possible gastric fundus mass. CT abdomen and pelvis showed evidence of acute pancreatitis and large yary-ileostomy hernia. Patient remains in septic shock on Levophed and vasopressin. Chemistry pending today 09/28: Remains critically ill, hemoglobin dropped from 8.2-6.3, no obvious external bleeding. Renal failure worsening. On IV heparin, patient remains unresponsive off sedation. Need CT abdomen pelvis to rule out retroperitoneal bleed, CT head to rule out intracranial bleed 09/29: Received 1 unit PRBC yesterday, hemoglobin is 7.[address] abdomen pelvis and CT head pending at this time. Oliguric with 15 KG weight gain, severely acidemic with bicarbonate of 10. Creatinine increased to 2.4. Discussed with nephrology will start hemodialysis today 09/30: EEG 09/29 Significant right central seizure focus. Cerebyx 1 GM loading dose and 100, 2 mg IV Ativan. Her AMS most likely from subclinical seizures. Remains afebrile and off pressors. Tachycardic. No improvement in neuro. Eyes spontaneously open, occasionally moves right lower extremity but no withdrawal in right upper or lower. Urine output 475 mL. All cultures since 09/26 had been negative 10/01: Hemoglobin 6.5 today, received 2 units of blood with recheck 10.5. After GJ tube was placed, GI aspirated blood from G portion. Plan for probable EGD tomorrow. Off pressors. Encephalopathy not improved. EEG repeated today Report pending 10/02: hgb improved from yesterday. plan for EGD today. getting IHD today as well. INR elevated, may be nutritional deficiency. EEG with persistent focus of spikes, could be seizure focus. will re-engage neurology. Objective Vital Signs Date Time Temp Pulse Resp B/P Pulse Ox O2 Delivery O2 Flow Rate FiO2 10/02/16 08:15 35 10/02/16 08:11 97 Ventilator 10/02/16 08:00 96.6 96 18 138/96 Intake and Output 10/01/16 10/01/16 10/02/16 08:00 16:00 00:00 Intake Total 594 ml 1178 ml 452 ml Output Total 355 ml 100 ml 320 ml Balance 239 ml 1078 ml 132 ml Result Diagram: 10/02/16 0430 10/02/16 043 Imaging Imaging studies reviewed Objective Remarks GENERAL: 61 yo female who is intubated, appears critically ill SKIN: Warm HEAD: Atraumatic. Normocephalic. EYES: 4 mm reactive bilaterally. No scleral icterus. No injection or drainage. R gaze preference ENT: No nasal bleeding or discharge. Mucous membranes dry, orotracheally intubated NECK: Trachea midline, scar from prior tracheostomy. CARDIOVASCULAR: Tachycardic. No murmurs rubs or gallops. Off pressors RESPIRATORY: Air entry diminished bilaterally with few coarse rhonchi, no wheezes GASTROINTESTINAL: Abdomen obese, soft, ostomy mucosa pink. GJ in place. L hip wound vac in place. Large hernia associated with colostomy : [facility] in place. MUSCULOSKELETAL: Extremities without clubbing, cyanosis. Anasarca + NEUROLOGICAL: Eyes are spontaneously open, with R gaze preference. Very weakly withdraws right lower extremities do not follow commands. Chronic Left hemiparesis. Procedures PEG Colostomy 08/28- revision colostomy , repair of parastomal hernia A/P Assessment and Plan Assessment and Plan NEURO: Subclinical seizure Acute toxic metabolic encephalopathy History of cerebral aneurysm clip in 2007 Baseline L hemiparesis and aphasia -Encephalopathy secondary to subclinical seizure. EEG 09/29-Significant right central seizure focus. Repeat EEG 10/01 with persistent spikes - 09/30 Cerebyx 1 GM loading dose followed by 100 mg IV q8. Dilantin level in am -continues off sedation. -Repeat CT 09/29 negative -will attempt to obtain MRI. has old aneurysm clip, may not be MRI compatible. RESP: Acute hypoxemic respiratory failure Right upper lobe pulmonary embolism Multiple bilateral pulmonary nodules Left lower lobe pneumonia/effusion/HCAP History of tracheostomy COPD, History of Tobacco abuse -PRVC. Daily CPAP, but mental status won't permit extubation -Wean FiO2 for sat greater than 90%. DuoNeb every 6 hours. And when necessary. -IV Heparin PE protocol -F/U sputum culture-neg to date -Antibiotics per ID (vancomycin, Meropenem, Flagyl, micafungin) -Pulmonary consult appreciated-Dr Rg CV: Septic shock Fluid overload -09/26/16 Normal saline 3 L bolus -Off Norepinephrine, Vasopressin. s/p stress dose steroids with hydrocort. -2 D Echo 12/25/15 with EF 55-60%. Normal wall motion. Mild LVH -Hold hydralazine lisinopril and metoprolol -Left Xrbycu-h-Iqef extraction was attempted 09/20/16. Catheter fractured below the clavicle. -Per Dr. 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 Increasing induration of Pancrease -s/p GJ tube placement -GI aspirated blood from G portion- possible endoscopy in am -On IV Flagyl for C. difficile colitis,added Fidaxomicin -Diverting colostomy 07/15/16. Revision 08/13/[address] Faulkner. -NPO except meds, -IV Protonix FEN/RENAL: Acute kidney injury. Metabolic acidemia Moderate protein energy malnutrition -[facility] in place. Monitor intake and output closely. Started HD 09/29 -Monitor BUN and creatinine daily, improving ID: Septic shock-resolved New LLL HCAP C Diff Colitis Prev HCAP 08/14 with ESBL Klebsiella, MSSA, Proteus Proteus bacteremia 08/14 and 09/20 Non stageable necrotic decubitus ulcer L buttocks - wound management per plastics /wound care UTI -Currently receiving Meropenem IV, Vanco IV, Flagyl IV, Dificid oral, Vanco oral and Micafungin IV. De escalate per ID Pertinent cultures: 2/3 blood urine and sputum cultures are neg to date 09/10 Urine Proteus 09/10 Blood Proteus 09/01 Urine C tropicalis 08/14 BAL Proteus, ESBL Klebsiella, MSSA 08/14 Blood Proteus 08/14 Urine Escherichia coli, Pseudomonas HEME: Acute PE Anemia requiring transfusion -Continue IV heparin .EGD am. -Monitor CBC-transfused 1 U PRBC 09/28, 2U 10/01/16 -U/s bilateral lower extremity negative for DVT 06/01, 09/25 -US Paddy upper ext neg 09/18, 09/26 except L cephalic vein not visualized ENDO: -Low-dose ISS for glycemic control while on steroids, accucheck q6. -Stress dose steroids-wean PROPH: -IV Hparin. Protonix 40 mg IV daily for stress ulcer prophylaxis. ACCESS: -Port in L chest removed09/20/16-unsuccessful, catheter fractured below clavicle. -R subclavian central line placed 09/26/16 -Placed R\IJ HD catheter 09/29/16 SOCIAL: -DCF previously notified for neglect CCT 31 minutes exclusive of separately billable procedures. Morgan Thompson MD Oct 02, 2016 10:48
[2016-10-02] MEDS: CALAMINE/PRAMOXINE LOTION 180 ML BTL TOPICAL SCH ×2 (12:03→19:58)
[2016-10-02] MEDS: BACITRACIN TOP OINT 15 GM TUBE TOP SCH ×2 (12:03→19:58)
[2016-10-02] MEDS: MICAFUNGIN INJ 150 MG in SODIUM CHLORIDE 0.9% INJ 100 ML IV SCH (12:03)
[2016-10-02] MEDS: PETROLATUM 49%/ZINC OXIDE 15% 4 OUNCE TUBE TOPICAL SCH (12:04)
--- NOTE | 2016-10-02 14:38 | HHI.GIFU ---
Subjective Remarks Resting in bed. No distress. EGD cancelled secondary to high INR. Pt on heparin gtt. Started having small amount of red mucous stool mixed within greenish/gold stool (Brooklyn Lizama) Objective Vitals I&O Vital Signs Date Time Temp Pulse Resp B/P Pulse Ox O2 Delivery O2 Flow Rate FiO2 10/02/16 12:00 108 10/02/16 12:00 96.6 108 25 128/82 96 10/02/16 11:51 96 35 10/02/16 08:15 35 10/02/16 08:11 35 10/02/16 08:11 97 Ventilator 35 10/02/16 08:11 97 35 10/02/16 08:00 96.6 96 18 138/96 97 10/02/16 08:00 96 10/02/16 06:00 91 10/02/16 04:03 97 35 10/02/16 04:00 91 10/02/16 04:00 35 10/02/16 04:00 97.3 91 18 113/76 96 10/02/16 02:00 89 10/02/16 01:33 100 35 10/02/16 00:00 98.1 94 18 147/97 99 10/02/16 00:00 97 10/02/16 00:00 35 10/01/16 22:00 99 35 10/01/16 22:00 97 10/01/16 20:17 99 35 10/01/16 20:00 92 10/01/16 20:00 98.2 95 18 148/91 100 10/01/16 20:00 35 10/01/16 16:00 96 10/01/16 16:00 97.7 96 24 152/99 100 10/01/16 15:33 100 33 10/01/16 14:52 100 I/O 10/01/16 10/01/16 10/01/16 10/02/16 10/02/16 10/02/16 07:00 15:00 23:00 07:00 15:00 23:00 Intake Total 594 ml 1178 ml 452 ml 615 ml Output Total 355 ml 100 ml 320 ml 605 ml 3000 ml Balance 239 ml 1078 ml 132 ml 10 ml -3000 ml IV Total 334 ml 478 ml 192 ml 415 ml Packed Cells 500 ml Tube Irrigant 60 ml 60 ml Other 200 ml 200 ml 200 ml 200 ml Output Urine Total 125 ml 25 ml 200 ml 350 ml Stool Total 220 ml 75 ml 100 ml 250 ml Gastric Drainage Total 0 ml Drainage Total 10 ml 0 ml 20 ml 5 ml Hemodialysis 3000 ml Laboratory Laboratory Tests Test 10/01/16 10/02/16 15:00 04:30 Stool C. difficile Toxin (PCR) NEGATIVE Stl C. difficile Toxin PRESUMPTIVE Epiderm 027 NEGATIVE White Blood Count 16.0 Red Blood Count 3.84 Hemoglobin 10.4 Hematocrit 32.0 Mean Corpuscular Volume 83.3 Mean Corpuscular Hemoglobin 27.2 Mean Corpuscular Hemoglobin 32.6 Concent Red Cell Distribution Width 17.2 Platelet Count 214 Mean Platelet Volume 8.6 Neutrophils (%) (Auto) 84.3 Lymphocytes (%) (Auto) 5.2 Monocytes (%) (Auto) 7.6 Eosinophils (%) (Auto) 2.3 Basophils (%) (Auto) 0.6 Neutrophils # (Auto) 13.5 Lymphocytes # (Auto) 0.8 Monocytes # (Auto) 1.2 Eosinophils # (Auto) 0.4 Basophils # (Auto) 0.1 CBC Comment AUTO DIFF Differential Total Cells 100 Counted Neutrophils % (Manual) 78 Band Neutrophils % 3 Lymphocytes % 5 Monocytes % 6 Eosinophils % 1 Neutrophils # (Manual) 14.1 Metamyelocytes 4 Myelocytes 3 Nucleated Red Blood Cells 1 Differential Comment FINAL DIFF MANUAL Platelet Estimate NORMAL Platelet Morphology Comment NORMAL Keratocytes OCC Prothrombin Time 30.3 Prothromb Time International 2.6 Ratio Activated Partial 73.8 Thromboplast Time Sodium Level 142 Potassium Level 3.6 Chloride Level 107 Carbon Dioxide Level 17.5 Anion Gap 18 Blood Urea Nitrogen 16 Creatinine 1.94 Estimat Glomerular Filtration 26 Rate Random Glucose 106 Calcium Level 7.8 Total Bilirubin 0.7 Aspartate Amino Transf 11 (AST/SGOT) Alanine Aminotransferase 9 (ALT/SGPT) Alkaline Phosphatase 118 Total Protein 5.5 Albumin 2.2 Phenytoin (Dilantin) Level 9.0 Imaging Last Impressions Chest X-Ray 10/02/16 0600 Signed Impressions: Service Date/Time: September 02:52 - CONCLUSION: No significant change has occurred. Evan Navarro MD Gastrostomy Tube Change 10/01/16 0000 Signed Impressions: Service Date/Time: Saturday, October 01, 2016 13:54 - CONCLUSION: 1. Uncomplicated gastrojejunostomy tube placement Reed Rico MD Head CT 09/29/16 0000 Signed Impressions: Service Date/Time: Thursday, September 29, 2016 12:54 - CONCLUSION: 1. No significant change compared to 09/25/16. 2. Extensive bilateral encephalomalacia (right worse than left) predominantly within the frontal lobes and parietal occipital lobes as well as the right temporal lobe. 3. Extensive periventricular and subcortical white matter small vessel ischemic changes bilaterally. 4. Scattered old lacunar infarcts within the bilateral basal ganglia. 5. Stable ventriculomegaly. 6. No acute hemorrhage, midline shift , or extraaxial fluid collections. Ernie Mathis MD Abdomen/Pelvis CT 09/29/16 0000 Signed Impressions: Service Date/Time: Thursday, September 29, 2016 13:01 - CONCLUSION: 1. Large hernia adjacent to the colostomy without abscess. 2. There is no free air. There is no evidence for an obstruction. 3. There is increasing induration around the pancreas. Correlation with laboratory values is suggested. Vinay Avalos MD FACR Upper Extremity Ultrasound 09/26/16 0000 Signed Impressions: Service Date/Time: Monday, September 26, 2016 20:17 - CONCLUSION: No DVT or superficial venous thrombosis is identified within either upper extremity. Please note that the left cephalic vein is not visualized. Aidan Churchill MD CT Angiography 09/26/16 0000 Signed Impressions: Service Date/Time: Monday, September 26, 2016 15:12 - CONCLUSION: 1. Several small pulmonary emboli in the right upper lobe. 2. Multiple bilateral pulmonary parenchymal nodules. Both neoplastic and inflammatory etiologies are in the differential diagnosis. 3. Mildly prominent right hilar lymph node, likely reactive. 4. Bilateral lower lobe atelectasis and small left pleural effusion. 5. Possible mass in the medial gastric fundus. Rony Espinoza MD Lower Extremity Ultrasound 09/25/16 1622 Signed Impressions: Service Date/Time: September 17:26 - CONCLUSION: No DVT of the left lower extremity. Aidan Felipe MD Vena [facility] 09/22/16 1702 Signed Impressions: Service Date/Time: Thursday, September 22, 2016 15:50 - CONCLUSION: 1. Unsuccessful port removal. Reed Rico MD Abdomen X-Ray 09/16/16 0000 Signed Impressions: Service Date/Time: Friday, September 16, 2016 16:55 - CONCLUSION: G-tube in place in the body the stomach properly positioned David Rivera MD Physical Exam HEENT: Normocephalic; atraumatic; no jaundice. CHEST: Scattered rhonchi, OETT to vent. CARDIAC: ST ABDOMEN: Soft, nondistended, nontender; no hepatosplenomegaly; G/J tube site without redness, swelling, or drainage. Aspirated clear secretions from G tube , colostomy large hernia, mostly greenish/gold liquid stool, but now with small amount of red mucous stool mixed within this. EXTREMITIES: Generalized edema. 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 Rpt. CT scan abdomen/pelvis (09/29/16)---> 1. Large hernia adjacent to the colostomy without abscess. 2. There is no free air. There is no evidence for an obstruction. 3. There is increasing induration around the pancreas. Correlation with laboratory values is suggested. Pt with persistent leukocytosis, wbc 16.0 Lipase 137. S/P conversion of G tube to G/J tube (10/01). TF on hold secondary to bleeding. - GIB. Pt was noted to have blood clots and small amount of red blood followed by gastric secretions yesterday and therefore the plan was for EGD today. However, INR was elevated and therefore this was cancelled. She was tx yesterday for drop in Hgb and this has since remained stable. The nurse reports that she has been having liquid green stool, but just was noted to have a small amount of red mucous mixed within her green and greenish gold stool. Clear secretions secreted from G tube. D/W Dr. Pascal. Will hold heparin and tube feedings , serial HH's, give 2 units of FFP and monitor. - Anemia with drop in Hgb yesterday. HH stable after transfusion. - Elevated INR, unclear etiology, ? malnutrition. - ? fundic mass, ? pseudocyst - Pt had EGD with peg tube placement (07/07/16), this showed gastritis but no other abnormalities CT pulmonary angiogram showed right upper lobe pulmonary emboli, multiple pulmonary nodules infectious versus inflammatory versus malignant, and possible gastric fundus mass. CT abdomen and pelvis showed evidence of acute pancreatitis and large yary- ileostomy hernia. Currently patient is sedated on a vent, not stable for any procedures. S/P repeat CT of abdomen as above. - Dysphagia/malnourished. S/P EGD/PEG (07/07/16). S/P conversion of peg to G/J tube. - C-diff. WBC improving. Vanco and Flagyl - PE- Heparin on hold - Long hospital course complicated by several episodes of sepsis, per [facility] - Respiratory failure- intubated per [facility] - Decubitus ulcers on her sacrum, buttocks, heels. Plastic surgery consulted and managed wounds with wound vac; underwent laparoscopic diverting colostomy . On 08/13 she underwent colostomy revision per Dr. Faulkner due to peristomal hernia. Wound vac to sacral wound Plan: - NPO - PPI - 2 units FFP - Hold heparin until am - Monitor serial HH's - Transfuse as necessary - CBC, PT/INR in am - Supportive care - If no further bleeding and hh remains stable, okay to resume heparin and diet in am if INR allows - Further recommendations to follow based on results of above - Patient seen and examined by Dr. Pascal and myself and this note is written on his behalf. (Brooklyn Lizama) Physician Comments Seen and examined with KEY CUTTER, scant bleeding in colostomy earlier today. EGD on hold due to elevated INR. Give 2 units of FFP and hold heparin and TF. ? Egd tomorrow. (Charito Pascal MD) [place] Lizama Oct 02, 2016 14:38 Charito Pascal MD Oct 02, 2016 16:58
[2016-10-02] MEDS ORDERED: SODIUM CHLOR 0.9% 250 ML INJ 250 ML IV ONE (14:45)
[2016-10-02 15:17] LABS: HEMATOCRIT 31.3 % (35.0-46.0); REVIEW FLAG FINAL
[2016-10-02] MEDS ORDERED: hydrALAZINE HCL 20 MG/ML VIAL IV PUSH PRN (20:30)
[2016-10-02] MEDS ORDERED: NITROGLYCERIN 2% OINT 1 GM PACKET TOPICAL PRN (20:30)
[2016-10-02] MEDS ORDERED: LABETALOL HCL 100 MG/20 ML VIAL IV PUSH PRN (20:30)
--- NOTE | 2016-10-02 20:42 | HHI.NPPN ---
Subjective History of Present Illness 61-year-old female with past medical history of cerebellar aneurysm repair, seizure disorder, hypertension, hepatitis C. She was admitted on May 31 with failure to thrive. I was called to see the patient because of acute kidney injury. The patient had creatinine of 1.23 on admission which improved and then she had increase in the creatinine to 1.27 in June and on August 14 and then it went up to 2.0 and for the last week or so it has been going up again. The patient has had a prolonged hospital course with multiple episodes of infection including pneumonia, urinary tract infection, sepsis. Infectious Disease has been following and the patient has been getting antibiotics. Additional Remarks Patient remain on the vent. open eyes. Objective Data Data 10/01/16 10/02/16 19:00 07:00 Intake Total 1178 ml 1067 ml Output Total 100 ml 925 ml Balance 1078 ml 142 ml IV Total 478 ml 607 ml Packed Cells 500 ml Tube Irrigant 60 ml Other 200 ml 400 ml Output Urine Total 25 ml 550 ml Stool Total 75 ml 350 ml Gastric Drainage Total 0 ml Drainage Total 0 ml 25 ml Vital Signs Date Time Temp Pulse Resp B/P Pulse Ox O2 Delivery O2 Flow Rate FiO2 10/02/16 19:36 97 35 10/02/16 16:00 98.2 103 18 152/105 98 10/02/16 16:00 103 10/02/16 15:52 97 35 10/02/16 14:42 35 10/02/16 12:00 108 10/02/16 12:00 96.6 108 25 128/82 96 10/02/16 11:51 96 35 10/02/16 08:15 35 10/02/16 08:11 35 10/02/16 08:11 97 Ventilator 35 10/02/16 08:11 97 35 10/02/16 08:00 96.6 96 18 138/96 97 10/02/16 08:00 96 10/02/16 06:00 91 10/02/16 04:03 97 35 10/02/16 04:00 91 10/02/16 04:00 35 10/02/16 04:00 97.3 91 18 113/76 96 10/02/16 02:00 89 10/02/16 01:33 100 35 10/02/16 00:00 98.1 94 18 147/97 99 10/02/16 00:00 97 10/02/16 00:00 35 10/01/16 22:00 99 35 10/01/16 22:00 97 -: 10/02/16 1500 10/02/16 0430 Physical Exam General Appearance Remarks Intubated and off sedation. Eyes Eye Exam: Pupils Equal Throat Throat Exam: Oral Mucosa [place] & Moist Pulmonary Resp Exam: Crackles, Rhonchi, Decreased Bases, Diminished Breath Sounds Cardiology CV Exam: Regular Gastrointestinal/Abdomen GI Exam: Soft, Non-Tender, Distended (with colostomy.) Extremeties Extremities Exam: Moderate Edema, Pitting Edema, Dependent Edema Neurologic Neuro Exam: Unresponsive Assessment/Plan Assessment Summary: IMELDA/Acute Renal Failure Electrolyte Assessment: Metabolic Acidosis Problem List: (1) Anemia (2) Lactic acidosis (3) Acute respiratory failure (4) Cellulitis (5) Edema (6) COPD (chronic obstructive pulmonary disease) (7) History of CVA (cerebrovascular accident) (8) Essential hypertension (9) IMELDA (acute kidney injury) Plan Urine out put is better Acidosis is improving. Continue antibiotics as per ID. Avoid Nephrotoxins. Follow the urine out put and BMP, HD as needed. HD done today and 3 liters removed. Possibly has some improvement in the renal function. Follow urine out put and BMP. HD as needed. Problem Qualifiers (1) Anemia: (2) Acute respiratory failure: Qualified Code: J96.00 - Acute respiratory failure, unspecified whether with hypoxia or hypercapnia Chantel Redmond MD Oct 02, 2016 20:42
[2016-10-02] MEDS: hydrALAZINE HCL 25 MG TAB PO SCH (20:47)
[2016-10-02 21:47] LABS: HEMATOCRIT 30.2 % (35.0-46.0); REVIEW FLAG FINAL
[2016-10-02 21:50] LABS: APTT (PATIENT) 44.3 SEC (24.3-30.1)
--- NOTE | 2016-10-02 21:56 | HHI.IDPN ---
Subjective Subjective Remarks delayed entry; pt seen today around 1 pm Events noted Briefly pt was transferred to [facility] after Melidat was called due to hypotension and respiratory distress 2 days ago. She has a PMH of cerebral aneurysm repair, seizures, HTN, Hep C, tobacco abuse and is aphasic at baseline who originally presented to [facility] 05/31/16 with failure to thrive. She was found to have severe sepsis had decubitus ulcers on her sacrum, buttocks, heels. She underwent laparoscopic diverting colostomy . On 08/13 she underwent colostomy revision per Dr. Faulkner due to peristomal hernia. Patient remained in ICU was on ventilator. Had Proteus Mirabilis UTI and bacteremia during this hospitalization. She was also treated for Cdiff positive diarrhea She now appears to have recurrent large volume output through her stoma, positive blood culture from 09/10/2016. Repaet BC from 09/17 and 09/18 11/25 negative; from 09/26 also neg 09/25 Overnight events reviewed. s/p HD yday with hypotension needing placement on Levophed for a while. She is now off pressors Now undergoing HD after albumin given and tolerating with ok BP but tachycardia. UO better Normla temp Remains encephalopathic. Opens eyes spontaneously but not following commands. No spontaneous limb movts or withdrawal to pain C.diff negative Remains intubated, on CPAP Antibiotics Meropenem IV Vanco IV Flagyl IV Dificid oral Vanco oral. Micafungin IV Lines Line sites with no e./o infection Past Medical History Reviewed Allergies: Coded Allergies: MRI PRECAUTION (Verified Adverse Reaction, Severe, ANEURYSM CLIP PER DR. RIVERARPQAD-RB-IRF-09/08/09, 05/31/16) *MDRO Multi-Drug Resistant Organism (Verified Adverse Reaction, Unknown, MRSA, 08/18/16) MRSA (sputum) - 10/2004 & 11/2004 ESBL Klebsiella Pneumoniae (bronc wash-08/14/16) Objective . Vital Signs Date Time Temp Pulse Resp B/P Pulse Ox O2 Delivery O2 Flow Rate FiO2 10/02/16 20:00 98.4 98 18 153/114 98 10/02/16 20:00 98 10/02/16 20:00 35 10/02/16 19:36 97 35 10/02/16 16:00 98.2 103 18 152/105 98 10/02/16 16:00 103 10/02/16 15:52 97 35 10/02/16 14:42 35 10/02/16 12:00 108 10/02/16 12:00 96.6 108 25 128/82 96 10/02/16 11:51 96 35 10/02/16 08:15 35 10/02/16 08:11 35 10/02/16 08:11 97 Ventilator 35 10/02/16 08:11 97 35 10/02/16 08:00 96.6 96 18 138/96 97 10/02/16 08:00 96 10/02/16 06:00 91 10/02/16 04:03 97 35 10/02/16 04:00 91 10/02/16 04:00 35 10/02/16 04:00 97.3 91 18 113/76 96 10/02/16 02:00 89 10/02/16 01:33 100 35 10/02/16 00:00 98.1 94 18 147/97 99 10/02/16 00:00 97 10/02/16 00:00 35 10/01/16 22:00 99 35 10/01/16 22:00 97 10/01/16 10/01/16 10/02/16 15:00 23:00 07:00 Intake Total 1178 ml 452 ml 615 ml Output Total 100 ml 320 ml 605 ml Balance 1078 ml 132 ml 10 ml IV Total 478 ml 192 ml 415 ml Packed Cells 500 ml Tube Irrigant 60 ml Other 200 ml 200 ml 200 ml Output Urine Total 25 ml 200 ml 350 ml Stool Total 75 ml 100 ml 250 ml Gastric Drainage Total 0 ml Drainage Total 0 ml 20 ml 5 ml . Laboratory Tests Test 10/01/16 10/01/16 10/02/16 10/02/16 02:59 12:53 04:30 15:00 White Blood Count 9.8 TH/MM3 16.0 TH/MM3 Red Blood Count 2.35 MIL/MM3 3.84 MIL/MM3 Hemoglobin 6.5 GM/DL 10.5 GM/DL 10.4 GM/DL 10.4 GM/DL Hematocrit 19.6 % 30.2 % 32.0 % 31.3 % Mean Corpuscular Volume 83.3 FL 83.3 FL Mean Corpuscular Hemoglobin 27.7 PG 27.2 PG Mean Corpuscular Hemoglobin 33.2 % 32.6 % Concent Red Cell Distribution Width 17.7 % 17.2 % Platelet Count 209 TH/MM3 214 TH/MM3 Mean Platelet Volume 8.3 FL 8.6 FL Neutrophils (%) (Auto) 84.8 % 84.3 % Lymphocytes (%) (Auto) 7.0 % 5.2 % Monocytes (%) (Auto) 5.9 % 7.6 % Eosinophils (%) (Auto) 2.1 % 2.3 % Basophils (%) (Auto) 0.2 % 0.6 % Neutrophils # (Auto) 8.3 TH/MM3 13.5 TH/MM3 Lymphocytes # (Auto) 0.7 TH/MM3 0.8 TH/MM3 Monocytes # (Auto) 0.6 TH/MM3 1.2 TH/MM3 Eosinophils # (Auto) 0.2 TH/MM3 0.4 TH/MM3 Basophils # (Auto) 0.0 TH/MM3 0.1 TH/MM3 CBC Comment AUTO DIFF AUTO DIFF Differential Total Cells 100 100 Counted Neutrophils % (Manual) 50 % 78 % Band Neutrophils % 28 % 3 % Lymphocytes % 7 % 5 % Monocytes % 6 % 6 % Eosinophils % 1 % 1 % Basophils % 2 % Neutrophils # (Manual) 8.2 TH/MM3 14.1 TH/MM3 Metamyelocytes 5 % 4 % Myelocytes 1 % 3 % Differential Comment FINAL DIFF FINAL DIFF MANUAL MANUAL Platelet Estimate NORMAL NORMAL Platelet Morphology Comment NORMAL NORMAL Nucleated Red Blood Cells 1 /100 WBC Keratocytes OCC Laboratory Tests Test 10/01/16 10/02/16 02:59 04:30 Sodium Level 142 MEQ/L 142 MEQ/L Potassium Level 3.2 MEQ/L 3.6 MEQ/L Chloride Level 105 MEQ/L 107 MEQ/L Carbon Dioxide Level 16.2 MEQ/L 17.5 MEQ/L Anion Gap 21 MEQ/L 18 MEQ/L Blood Urea Nitrogen 13 MG/DL 16 MG/DL Creatinine 1.39 MG/DL 1.94 MG/DL Estimat Glomerular Filtration 39 ML/MIN 26 ML/MIN Rate Random Glucose 101 MG/DL 106 MG/DL Calcium Level 7.6 MG/DL 7.8 MG/DL Magnesium Level 1.4 MG/DL Total Bilirubin 0.5 MG/DL 0.7 MG/DL Aspartate Amino Transf 11 U/L 11 U/L (AST/SGOT) Alanine Aminotransferase 10 U/L 9 U/L (ALT/SGPT) Alkaline Phosphatase 127 U/L 118 U/L Total Protein 5.4 GM/DL 5.5 GM/DL Albumin 2.5 GM/DL 2.2 GM/DL Lipase 137 U/L Imaging Last Impressions Chest X-Ray 10/02/16 0600 Signed Impressions: Service Date/Time: September 02:52 - CONCLUSION: No significant change has occurred. Evan Navarro MD Gastrostomy Tube Change 10/01/16 Signed Impressions: Service Date/Time: Saturday, October 01, 2016 13:54 - CONCLUSION: 1. Uncomplicated gastrojejunostomy tube placement Reed Rico MD Head CT 09/29/16 Signed Impressions: Service Date/Time: Thursday, September 29, 2016 12:54 - CONCLUSION: 1. No significant change compared to 09/25/16. 2. Extensive bilateral encephalomalacia (right worse than left) predominantly within the frontal lobes and parietal occipital lobes as well as the right temporal lobe. 3. Extensive periventricular and subcortical white matter small vessel ischemic changes bilaterally. 4. Scattered old lacunar infarcts within the bilateral basal ganglia. 5. Stable ventriculomegaly. 6. No acute hemorrhage, midline shift , or extraaxial fluid collections. Ernie Mathis MD Abdomen/Pelvis CT 09/29/16 Signed Impressions: Service Date/Time: Thursday, September 29, 2016 13:01 - CONCLUSION: 1. Large hernia adjacent to the colostomy without abscess. 2. There is no free air. There is no evidence for an obstruction. 3. There is increasing induration around the pancreas. Correlation with laboratory values is suggested. Vinay Avalos MD FACR Upper Extremity Ultrasound 09/26/16 Signed Impressions: Service Date/Time: Monday, September 26, 2016 20:17 - CONCLUSION: No DVT or superficial venous thrombosis is identified within either upper extremity. Please note that the left cephalic vein is not visualized. Aidan Churchill MD CT Angiography 09/26/16 Signed Impressions: Service Date/Time: Monday, September 26, 2016 15:12 - CONCLUSION: 1. Several small pulmonary emboli in the right upper lobe. 2. Multiple bilateral pulmonary parenchymal nodules. Both neoplastic and inflammatory etiologies are in the differential diagnosis. 3. Mildly prominent right hilar lymph node, likely reactive. 4. Bilateral lower lobe atelectasis and small left pleural effusion. 5. Possible mass in the medial gastric fundus. Rony Espinoza MD Lower Extremity Ultrasound 09/25/16 1622 Signed Impressions: Service Date/Time: September 17:26 - CONCLUSION: No DVT of the left lower extremity. Aidan Felipe MD [facility] 09/22/16 1702 Signed Impressions: Service Date/Time: Thursday, September 22, 2016 15:50 - CONCLUSION: 1. Unsuccessful port removal. Reed Rico MD Abdomen X-Ray 09/16/16 0000 Signed Impressions: Service Date/Time: Friday, September 16, 2016 16:55 - CONCLUSION: G-tube in place in the body the stomach properly positioned David Rivera MD Physical Exam GENERAL: Critically ill, Intubated. SKIN: No rash. EYES: Pupils equal and round and reactive. ENT: Intubated. Oral mucosae moist CARDIOVASCULAR: HS audible. No meumurs RESPIRATORY/CHEST: Decreased BS at bases bilaterally. Clear GASTROINTESTINAL: Abdomen soft, moderately distended, not tender. Colostomy site sealed well. Small amount of blood in stoma Some dependent edema and redness around it. MUSCULOSKELETAL: Extremities with no joint effusions. NEUROLOGICAL: sedated, not following commands Line sites with no e/o infection. : lu in place Assessment & Plan Remarks Sepsis Port related infection with septic emboli to lungs. Port remnant still in place. Possible new sources: aspiration pneumonia in health care setting, CAUTI, bacteremia (has port cath remnant in place). Persistent or recurrent Proteus bacteremia: ? port related cath infection (has port cath remnant in place). Aspiration PNA, HCAP. h/o C.diff hypervirulent 027 strain diarrhea in Dec, repeat C.diff negative Diarrhea could also be due to pancreatitis or Cdiff. Acute pancreatitis. Repeat CT with worsening pancreatitis but no abscess or retroperitoneal bleeding noted. Infected decubs, S/P diverting colostomy, sp revision of colostomy GIB present PLAN: Follow simpson cultures. Continue Meropenem IV (ASP: prior ESBL, septic shock while on Cefepime IV) and pancereatitis dc Oral Flagyl for Cdiff dc Vanco for Cdiff dc Micafungin IV (was on broad spectrum antibiotics at risk for fungemia.) Port Catheter remanant in place: possibly endothelialized and difficult to remove. No recurrent bacteremia however Lanette Barrios MD Oct 02, 2016 21:56
[2016-10-03] VITALS (16 sets, daily range): BP systolic 138–161; BP diastolic 87–102; PULSE 98–122; RESP 18–29; TEMP 96.1–98.1; O2SAT 97–100
[2016-10-03] MEDS: PANTOPRAZOLE SODIUM 40 MG VIAL IV PUSH SCH ×2 (03:12→15:45)
[2016-10-03] MEDS: MEROPENEM INJ 500 MG in SODIUM CHLORIDE 0.9% INJ 100 ML IV SCH ×3 (03:13→19:47)
[2016-10-03 03:50] LABS: HEMATOCRIT 30.9 % (35.0-46.0); MEAN CELL VOLUME 82.7 FL (80.0-100.0); MEAN CORPUSCULAR HEMOGLOBIN 27.3 PG (27.0-34.0); PLATELET COUNT 174 TH/MM3 (150-450); RED BLOOD COUNT 3.74 MIL/MM3 (4.00-5.30); RED CELL DISTRIBUTION WIDTH 17.2 % (11.6-17.2); REVIEW FLAG FINAL; WHITE BLOOD COUNT 14.7 TH/MM3 (4.0-11.0)
[2016-10-03 03:56] LABS: APTT (PATIENT) 44.8 SEC (24.3-30.1); INTERNATIONAL NORMALIZED RATIO 2.3 RATIO; PROTHROMBIN TIME - PATIENT 26.5 SEC (9.8-11.6)
[2016-10-03 04:08] LABS: BICARBONATE 20.9 MEQ/L (21.0-32.0); POTASSIUM 3.1 MEQ/L (3.5-5.1)
[2016-10-03] MEDS: FREE WATER G-TUBE SCH ×3 (06:00→22:05)
[2016-10-03] MEDS: POTASSIUM PHOSPHATE/SODIUM PHOSPHATE 250 MG TAB PO SCH ×3 (06:00→18:00)
[2016-10-03] MEDS: METOCLOPRAMIDE HCL 10 MG/2 ML VIAL IV SCH ×3 (06:15→22:05)
[2016-10-03] MEDS: hydrALAZINE HCL 25 MG TAB PO SCH ×3 (06:15→22:05)
[2016-10-03] MEDS: BACITRACIN TOP OINT 15 GM TUBE TOP SCH ×2 (09:00→19:47)
[2016-10-03] MEDS: POTASSIUM CL 40 MEQ/30 ML LIQ UDC GT SCH (09:32)
[2016-10-03] MEDS: MULTIVITAMIN TAB PO SCH (09:32)
[2016-10-03] MEDS: LACTOBACILLUS ACIDOPHILUS TAB PO SCH ×3 (09:32→18:00)
[2016-10-03] MEDS: CALAMINE/PRAMOXINE LOTION 180 ML BTL TOPICAL SCH ×2 (09:33→19:47)
[2016-10-03] MEDS: PETROLATUM 49%/ZINC OXIDE 15% 4 OUNCE TUBE TOPICAL SCH (09:33)
[2016-10-03] MEDS: SODIUM CHLORIDE 0.9% FLUSH 5 ML FLUSH IV FLUSH SCH ×2 (09:33→19:47)
[2016-10-03] MEDS: BETAMETHASONE DIPROPIONATE 0.05% CREAM 15 GM TOPICAL SCH ×2 (09:33→19:48)
[2016-10-03] MEDS: FOSPHENYTOIN INJ 100 MGPE in SODIUM CHLORIDE 0.9% INJ 50 ML IV SCH ×2 (09:33→15:54)
[2016-10-03] MEDS: CHLORHEXIDINE 0.12% (ORAL KIT) 15 ML CUP MT SCH ×2 (09:34→19:47)
--- NOTE | 2016-10-03 10:20 | HHI.GIFU ---
Subjective Remarks Lightly sedated. No active bleeding. Bilious material aspirated from G tube. Colostomy with green liquid stool ([place] Lizama) Objective Vitals I&O Vital Signs Date Time Temp Pulse Resp B/P Pulse Ox O2 Delivery O2 Flow Rate FiO2 10/03/16 07:53 97 35 10/03/16 07:53 98 Ventilator 35 10/03/16 06:00 98 10/03/16 04:00 98 10/03/16 04:00 96.1 99 18 148/91 97 10/03/16 04:00 35 10/03/16 03:37 98 35 10/03/16 02:00 100 10/03/16 00:00 35 10/03/16 00:00 98.1 116 19 142/87 97 10/03/16 00:00 116 10/02/16 23:54 97 35 10/02/16 22:00 110 10/02/16 20:00 98.4 98 18 153/114 98 10/02/16 20:00 98 10/02/16 20:00 35 10/02/16 19:36 97 35 10/02/16 16:00 98.2 103 18 152/105 98 10/02/16 16:00 103 10/02/16 15:52 97 35 10/02/16 14:42 35 10/02/16 12:00 108 10/02/16 12:00 96.6 108 25 128/82 96 10/02/16 11:51 96 35 I/O 10/02/16 10/02/16 10/02/16 10/03/16 10/03/16 10/03/16 07:00 15:00 23:00 07:00 15:00 23:00 Intake Total 615 ml 564 ml 868 ml 290 ml Output Total 605 ml 3475 ml 445 ml 600 ml Balance 10 ml -2911 ml 423 ml -310 ml IV Total 415 ml 364 ml 264 ml 290 ml FFP 404 ml Other 200 ml 200 ml 200 ml Output Urine Total 350 ml 300 ml 275 ml 450 ml Stool Total 250 ml 175 ml 150 ml 150 ml Gastric Drainage Total 0 ml 0 ml Drainage Total 5 ml 0 ml 20 ml 0 ml Hemodialysis 3000 ml Laboratory Laboratory Tests Test 10/02/16 10/02/16 10/02/16 10/03/16 14:38 15:00 20:40 03:20 Blood Bank Comment Hemoglobin 10.4 10.2 10.2 Hematocrit 31.3 30.2 30.9 Activated Partial 44.3 44.8 Thromboplast Time White Blood Count 14.7 Red Blood Count 3.74 Mean Corpuscular Volume 82.7 Mean Corpuscular Hemoglobin 27.3 Mean Corpuscular Hemoglobin 33.0 Concent Red Cell Distribution Width 17.2 Platelet Count 174 Mean Platelet Volume 8.7 Prothrombin Time 26.5 Prothromb Time International 2.3 Ratio Sodium Level 143 Potassium Level 3.1 Chloride Level 105 Carbon Dioxide Level 20.9 Anion Gap 17 Blood Urea Nitrogen 11 Creatinine 1.46 Estimat Glomerular Filtration 37 Rate Random Glucose 103 Calcium Level 8.0 Imaging Last Impressions Chest X-Ray 10/02/16 0600 Signed Impressions: Service Date/Time: September 02:52 - CONCLUSION: No significant change has occurred. Evan Navarro MD Gastrostomy Tube Change 10/01/16 0000 Signed Impressions: Service Date/Time: Saturday, October 01, 2016 13:54 - CONCLUSION: 1. Uncomplicated gastrojejunostomy tube placement Reed Rico MD Head CT 09/29/16 0000 Signed Impressions: Service Date/Time: Thursday, September 29, 2016 12:54 - CONCLUSION: 1. No significant change compared to 09/25/16. 2. Extensive bilateral encephalomalacia (right worse than left) predominantly within the frontal lobes and parietal occipital lobes as well as the right temporal lobe. 3. Extensive periventricular and subcortical white matter small vessel ischemic changes bilaterally. 4. Scattered old lacunar infarcts within the bilateral basal ganglia. 5. Stable ventriculomegaly. 6. No acute hemorrhage, midline shift , or extraaxial fluid collections. Ernie Mathis MD Abdomen/Pelvis CT 09/29/16 0000 Signed Impressions: Service Date/Time: Thursday, September 29, 2016 13:01 - CONCLUSION: 1. Large hernia adjacent to the colostomy without abscess. 2. There is no free air. There is no evidence for an obstruction. 3. There is increasing induration around the pancreas. Correlation with laboratory values is suggested. Vinay Avalos MD FACR Upper Extremity Ultrasound 09/26/16 0000 Signed Impressions: Service Date/Time: Monday, September 26, 2016 20:17 - CONCLUSION: No DVT or superficial venous thrombosis is identified within either upper extremity. Please note that the left cephalic vein is not visualized. Aidan Churchill MD CT Angiography 09/26/16 0000 Signed Impressions: Service Date/Time: Monday, September 26, 2016 15:12 - CONCLUSION: 1. Several small pulmonary emboli in the right upper lobe. 2. Multiple bilateral pulmonary parenchymal nodules. Both neoplastic and inflammatory etiologies are in the differential diagnosis. 3. Mildly prominent right hilar lymph node, likely reactive. 4. Bilateral lower lobe atelectasis and small left pleural effusion. 5. Possible mass in the medial gastric fundus. Rony Espinoza MD Lower Extremity Ultrasound 09/25/16 1622 Signed Impressions: Service Date/Time: September 17:26 - CONCLUSION: No DVT of the left lower extremity. Aidan Felipe MD Vena [facility] 09/22/16 1702 Signed Impressions: Service Date/Time: Thursday, September 22, 2016 15:50 - CONCLUSION: 1. Unsuccessful port removal. Reed Rico MD Abdomen X-Ray 09/16/16 0000 Signed Impressions: Service Date/Time: Friday, September 16, 2016 16:55 - CONCLUSION: G-tube in place in the body the stomach properly positioned David Rivera MD Physical Exam HEENT: Normocephalic; atraumatic; no jaundice. CHEST: Scattered rhonchi, tracheostomy to vent. CARDIAC: ST ABDOMEN: Soft, nondistended, nontender; no hepatosplenomegaly; G/J tube site without redness, swelling, or drainage. Aspirated bilious secretions from G tube, colostomy large hernia, green liquid stool EXTREMITIES: Generalized edema. SKIN: Multiple ecchymotic area RESIDENT ASSISTANT: Lightly sedated on a vent, does follow commands- squeezes hand to command ( [place] Lizama) Assessment and Plan Plan ASSESSMENT: - Acute pancreatitis, most likely secondary to sepsis/abx use. Rpt. CT scan abdomen/pelvis (09/29/16)---> 1. Large hernia adjacent to the colostomy without abscess. 2. There is no free air. There is no evidence for an obstruction. 3. There is increasing induration around the pancreas. Correlation with laboratory values is suggested. Wbc 14.7 Lipase 137 on 10/01. S/P conversion of G tube to G/J tube (10/01). TF was on hold for bleeding, but will resume today. - GIB. Pt was noted to have blood clots and small amount of red blood followed by gastric secretions (10/01) and therefore EGD was planned for 10/02, but had high INR and this was cancelled. She did have some red tinged mucous mixed within her stool on 10/02. She is not having any active bleeding. Bilious secretions from gastric tube and green stool from colostomy. HH has remained stable. 10..9. Will hold on EGD unless obvious active bleeding or significant drop in Hgb. - Coagulopathy, unlcear etiology, ? malnutrition S/P 2 units FFP, INR 2.3, but no active bleeding. - Anemia with drop in Hgb yesterday. HH has remained stable after transfusion. HH 10.. - ? Fundic mass, ? pseudocyst - Pt had EGD with peg tube placement (07/07/16), this showed gastritis but no other abnormalities CT pulmonary angiogram showed right upper lobe pulmonary emboli, multiple pulmonary nodules infectious versus inflammatory versus malignant, and possible gastric fundus mass. CT abdomen and pelvis showed evidence of acute pancreatitis and large yary- ileostomy hernia. Currently patient is sedated on a vent, not stable for any procedures. S/P repeat CT of abdomen as above. - Dysphagia/malnourished. S/P EGD/PEG (07/07/16). S/P conversion of peg to G/J tube. - C-diff. WBC improving. S/P Vanco and Flagyl - PE- Heparin on hold - Long hospital course complicated by several episodes of sepsis, per [facility] - Respiratory failure- intubated per [facility] - Decubitus ulcers on her sacrum, buttocks, heels. Plastic surgery consulted and managed wounds with wound vac; underwent laparoscopic diverting colostomy . On 08/13 she underwent colostomy revision per Dr. Faulkner due to peristomal hernia. Wound vac to sacral wound Plan: - Glucerna 1.5 @ 50 mls/hr via J tube - PPI - Monitor HH - Transfuse as necessary - Monitor for bleeding - Monitor labs - Notify GI of active bleeding or drop in hgb - Anticoagulation per [facility] - GI will sign off, please reconsult as needed - Patient seen and examined by Dr. Pascal and myself and this note is written on his behalf. (Bro[place] Lizama) Physician Comments Seen and examined with ANNAMARIA, no visible bleeding. H/H stable Start TF as tolerated. Will sign off, reconsult as needed. Thank you (Charito Pascal MD) [place] Lizama Oct 03, 2016 10:20 Charito Pascal MD Oct 03, 2016 13:27
--- NOTE | 2016-10-03 12:10 | HHI.CCPN ---
Subjective Remarks/Hospital Course 60-year-old female transferred to [facility] after Halicat was called due to acute hypoxemic respiratory failure and acute metabolic encephalopathy most likely secondary to severe sepsis. Patient was previously seen by critical care on August 14, 2016. Patient has past medical history significant for cerebral aneurysm repair, seizures, HTN, Hep C, tobacco abuse and is aphasic at baseline, left hemiparesis who originally presented to [facility] on 05/31/16 with failure to thrive, sepsis, decubitus ulcers on her sacrum, buttocks, heels. Plastic surgery consulted and managed wounds with wound vac; underwent laparoscopic diverting colostomy 07/15/16. On 08/13 she underwent colostomy revision per Dr. Faulkner due to peristomal hernia. On last ICU admission for respiratory failure and hypotension was seen by Dr. Vega. Per her notes postintubation patient developed mucous plug on the R requiring therapeutic bronchoscopy. Patient was extubated and later transferred to hospitalist service next day. Had a prolonged hospital course since then complicated with multiple sepsis episodes, including gram-negative bacteremia. BAL from 08/14/16 bronchoscopy grew Proteus mirabilis, ESBL Klebsiella and MSSA which was treated in consult with ID. Blood cultures from 08/14/16 grew Proteus mirabilis. Since then other pertinent cultures were blood culture positive for Proteus on , urine culture positive for Proteus on 09/10/15. Critical care medicine was consulted 2/3 after a Halicat. Patient became more hypoxemic with sats dropping to low 80s and was placed on 100% percent nonrebreather. PO2 on 100% nonrebreather was only 70. I evaluated the patient once she arrived in the ICU. Patient was in respiratory distress, with an altered mental status, not responding to painful stimuli. Patient was emergently intubated and placed on mechanical ventilation. I also placed an emergent right subclavian central line. Post intubation blood pressure dropped to systolic 80s and I placed her on Levophed. I discussed case extensively with ID Dr. Rascon. Patient will be placed on Vanco, Meropenem, Flagyl and Micafungin. A CT pulmonary angiogram and CT abdomen pelvis has been ordered SUBJ 09/27: Emergently intubated and placed on mechanical ventilation yesterday for acute hypoxemic respiratory failure, failure to protect airway. CT pulmonary angiogram showed right upper lobe pulmonary emboli, multiple pulmonary nodules infectious versus inflammatory versus malignant, and possible gastric fundus mass. CT abdomen and pelvis showed evidence of acute pancreatitis and large yary-ileostomy hernia. Patient remains in septic shock on Levophed and vasopressin. Chemistry pending today 09/28: Remains critically ill, hemoglobin dropped from 8.2-6.3, no obvious external bleeding. Renal failure worsening. On IV heparin, patient remains unresponsive off sedation. Need CT abdomen pelvis to rule out retroperitoneal bleed, CT head to rule out intracranial bleed 09/29: Received 1 unit PRBC yesterday, hemoglobin is 7.[address] abdomen pelvis and CT head pending at this time. Oliguric with 15 KG weight gain, severely acidemic with bicarbonate of 10. Creatinine increased to 2.4. Discussed with nephrology will start hemodialysis today 09/30: EEG 09/29 Significant right central seizure focus. Cerebyx 1 GM loading dose and 100, 2 mg IV Ativan. Her AMS most likely from subclinical seizures. Remains afebrile and off pressors. Tachycardic. No improvement in neuro. Eyes spontaneously open, occasionally moves right lower extremity but no withdrawal in right upper or lower. Urine output 475 mL. All cultures since 09/26 had been negative 10/01: Hemoglobin 6.5 today, received 2 units of blood with recheck 10.5. After GJ tube was placed, GI aspirated blood from G portion. Plan for probable EGD tomorrow. Off pressors. Encephalopathy not improved. EEG repeated today Report pending 10/02: hgb improved from yesterday. plan for EGD today. getting IHD today as well. INR elevated, may be nutritional deficiency. EEG with persistent focus of spikes, could be seizure focus. will re-engage neurology. 10/03: mental status continues to improve. passed her SBT today. no EGD yesterday or today as bleeding as apparently slowed down. hgb stable. Objective Vital Signs Date Time Temp Pulse Resp B/P Pulse Ox O2 Delivery O2 Flow Rate FiO2 10/03/16 07:53 97 35 10/03/16 07:53 Ventilator 10/03/16 06:00 98 10/03/16 04:00 96.1 18 148/91 Intake and Output 10/02/16 10/02/16 10/03/16 08:00 16:00 00:00 Intake Total 615 ml 564 ml 868 ml Output Total 605 ml 3475 ml 445 ml Balance 10 ml -2911 ml 423 ml Result Diagram: 10/03/16 0320 10/03/16 0320 Imaging Imaging studies reviewed Objective Remarks GENERAL: 61 yo female who is intubated, appears critically ill SKIN: Warm HEAD: Atraumatic. Normocephalic. EYES: 4 mm reactive bilaterally. No scleral icterus. No injection or drainage. R gaze preference ENT: No nasal bleeding or discharge. Mucous membranes dry, orotracheally intubated NECK: Trachea midline, scar from prior tracheostomy. CARDIOVASCULAR: Tachycardic. No murmurs rubs or gallops. Off pressors RESPIRATORY: Air entry diminished bilaterally with few coarse rhonchi, no wheezes GASTROINTESTINAL: Abdomen obese, soft, ostomy mucosa pink. GJ in place. L hip wound vac in place. Large hernia associated with colostomy : [facility] in place. MUSCULOSKELETAL: Extremities without clubbing, cyanosis. Anasarca + NEUROLOGICAL: Eyes are spontaneously open, with R gaze preference. follows commands on left. Procedures PEG Colostomy 08/28- revision colostomy , repair of parastomal hernia A/P Assessment and Plan Assessment and Plan NEURO: Subclinical seizure Acute toxic metabolic encephalopathy History of cerebral aneurysm clip in 2007 Baseline L hemiparesis and aphasia -Encephalopathy secondary to subclinical seizure. EEG 09/29-Significant right central seizure focus. Repeat EEG 10/01 with persistent spikes - 09/30 Cerebyx 1 GM loading dose followed by 100 mg IV q8. Dilantin level in am -continues off sedation. -Repeat CT 09/29 negative -will attempt to obtain MRI. has old aneurysm clip, may not be MRI compatible. RESP: Acute hypoxemic respiratory failure Right upper lobe pulmonary embolism Multiple bilateral pulmonary nodules Left lower lobe pneumonia/effusion/HCAP History of tracheostomy COPD, History of Tobacco abuse -PRVC. passed SBT today. we will trial extubation, although she is very deconditioned. -Wean FiO2 for sat greater than 90%. DuoNeb every 6 hours. And when necessary. -IV Heparin PE protocol -F/U sputum culture-neg to date -Antibiotics per ID (vancomycin, Meropenem, Flagyl, micafungin) -Pulmonary consult appreciated-Dr Rg CV: Septic shock Fluid overload -09/26/16 Normal saline 3 L bolus -Off Norepinephrine, Vasopressin. s/p stress dose steroids with hydrocort. -2 D Echo 12/25/15 with EF 55-60%. Normal wall motion. Mild LVH -Hold hydralazine lisinopril and metoprolol -Left Dvjuqd-m-Iggo extraction was attempted 09/20/16. Catheter fractured below the clavicle. -Per Dr. 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 Increasing induration of Pancrease -s/p GJ tube placement -GI aspirated blood from G portion- possible endoscopy in am -On IV Flagyl for C. difficile colitis,added Fidaxomicin -Diverting colostomy 07/15/16. Revision 08/13/[address] Faulkner. -NPO except meds, -IV Protonix FEN/RENAL: Acute kidney injury. Metabolic acidemia Moderate protein energy malnutrition -[facility] in place. Monitor intake and output closely. Started HD 09/29 -Monitor BUN and creatinine daily, improving ID: Septic shock-resolved New LLL HCAP C Diff Colitis Prev HCAP 08/14 with ESBL Klebsiella, MSSA, Proteus Proteus bacteremia 08/14 and 09/20 Non stageable necrotic decubitus ulcer L buttocks - wound management per plastics /wound care UTI -Currently receiving Meropenem IV, Vanco IV, Flagyl IV, Dificid oral, Vanco oral and Micafungin IV. De escalate per ID Pertinent cultures: 2 blood urine and sputum cultures are neg to date 09/10 Urine Proteus 09/10 Blood Proteus 09/01 Urine C tropicalis 08/14 BAL Proteus, ESBL Klebsiella, MSSA 08/14 Blood Proteus 08/14 Urine Escherichia coli, Pseudomonas HEME: Acute PE Anemia requiring transfusion -Continue IV heparin .EGD am. -Monitor CBC-transfused 1 U PRBC 09/28, 2U 10/01/16 -U/s bilateral lower extremity negative for DVT 06/01, 09/25 -US Paddy upper ext neg 09/18, 09/26 except L cephalic vein not visualized ENDO: -Low-dose ISS for glycemic control while on steroids, accucheck q6. -Stress dose steroids-wean PROPH: -IV Hparin. Protonix 40 mg IV daily for stress ulcer prophylaxis. ACCESS: -Port in L chest removed09/20/16-unsuccessful, catheter fractured below clavicle. -R subclavian central line placed 09/26/16 -Placed R\IJ HD catheter 09/29/16 SOCIAL: -DCF previously notified for Morgan Antony MD Oct 03, 2016 12:10
[2016-10-03] MEDS: RESP: ALBUTEROL 2.5 MG/IPRATROPIUM 0.5 MG NEB (PRN) INH ×2 (12:31→20:45)
--- NOTE | 2016-10-03 12:48 | HHI.NPPN ---
Subjective History of Present Illness 61-year-old female with past medical history of cerebellar aneurysm repair, seizure disorder, hypertension, hepatitis C. She was admitted on May 31 with failure to thrive. I was called to see the patient because of acute kidney injury. The patient had creatinine of 1.23 on admission which improved and then she had increase in the creatinine to 1.27 in June and on August 14 and then it went up to 2.0 and for the last week or so it has been going up again. The patient has had a prolonged hospital course with multiple episodes of infection including pneumonia, urinary tract infection, sepsis. Infectious Disease has been following and the patient has been getting antibiotics. Additional Remarks Patient is just extubated and drowsy, not in distress. Objective Data Data 10/02/16 10/03/16 19:00 07:00 Intake Total 968 ml 754 ml Output Total 3475 ml 1045 ml Balance -2507 ml -291 ml IV Total 364 ml 554 ml FFP 404 ml Other 200 ml 200 ml Output Urine Total 300 ml 725 ml Stool Total 175 ml 300 ml Gastric Drainage Total 0 ml 0 ml Drainage Total 0 ml 20 ml Hemodialysis 3000 ml Vital Signs Date Time Temp Pulse Resp B/P Pulse Ox O2 Delivery O2 Flow Rate FiO2 10/03/16 12:10 98 Nasal Cannula 4 10/03/16 07:53 97 35 10/03/16 07:53 98 Ventilator 35 10/03/16 06:00 98 10/03/16 04:00 98 10/03/16 04:00 96.1 99 18 148/91 97 10/03/16 04:00 35 10/03/16 03:37 98 35 10/03/16 02:00 100 10/03/16 00:00 35 10/03/16 00:00 98.1 116 19 142/87 97 10/03/16 00:00 116 10/02/16 23:54 97 35 10/02/16 22:00 110 10/02/16 20:00 98.4 98 18 153/114 98 10/02/16 20:00 98 10/02/16 20:00 35 10/02/16 19:36 97 35 10/02/16 16:00 98.2 103 18 152/105 98 10/02/16 16:00 103 10/02/16 15:52 97 35 10/02/16 14:42 35 -: 10/03/1631910/03/16319 Physical Exam General Appearance: No Acute Distress, Comfortable, Anxious Eyes Eye Exam: Pupils Equal Throat Throat Exam: Oral Mucosa [place] & Moist Pulmonary Resp Exam: Crackles, Rhonchi, Decreased Bases, Diminished Breath Sounds Cardiology CV Exam: Regular Gastrointestinal/Abdomen GI Exam: Soft, Non-Tender, Distended (with colostomy.) Extremeties Extremities Exam: Moderate Edema, Pitting Edema, Dependent Edema Neurologic Neuro Exam: Alert, Awake Assessment/Plan Assessment Summary: IMELDA/Acute Renal Failure Electrolyte Assessment: Metabolic Acidosis Problem List: (1) Anemia (2) Lactic acidosis (3) Acute respiratory failure (4) Cellulitis (5) Edema (6) COPD (chronic obstructive pulmonary disease) (7) History of CVA (cerebrovascular accident) (8) Essential hypertension (9) IMELDA (acute kidney injury) Plan Urine out put is better Acidosis is improving. Continue antibiotics as per ID. Avoid Nephrotoxins. Follow the urine out put and BMP, HD as needed. HD done yesterday. Possibly has some improvement in the renal function. Follow urine out put and BMP. Now extubated, follow urine out put and BMP. Hold HD if possible. D/W the at bed side. Problem Qualifiers (1) Anemia: (2) Acute respiratory failure: Qualified Code: J96.00 - Acute respiratory failure, unspecified whether with hypoxia or hypercapnia Chantel Redmond MD Oct 03, 2016 12:48
[2016-10-03 19:09] LABS: HEMATOCRIT 34.9 % (35.0-46.0); REVIEW FLAG FINAL
[2016-10-03 19:56] LABS: APTT (PATIENT) 41.3 SEC (24.3-30.1)
[2016-10-03] MEDS ORDERED: HEPARIN SODIUM - IV 10,000 UNITS/10 ML VIAL IV PRN (21:15)
[2016-10-04] VITALS (10 sets, daily range): BP systolic 127–152; BP diastolic 82–100; PULSE 95–124; RESP 16–24; TEMP 97.6–98.3; O2SAT 93–97
[2016-10-04] MEDS: POTASSIUM PHOSPHATE/SODIUM PHOSPHATE 250 MG TAB PO SCH ×5 (01:05→23:06)
[2016-10-04] MEDS: FOSPHENYTOIN INJ 100 MGPE in SODIUM CHLORIDE 0.9% INJ 50 ML IV SCH ×3 (01:05→17:18)
[2016-10-04 04:08] LABS: HEMATOCRIT 33.5 % (35.0-46.0); MEAN CORPUSCULAR HEMOGLOBIN 27.1 PG (27.0-34.0); MEAN CORPUSCULAR HGB CONC 32.6 % (32.0-36.0); PLATELET COUNT 172 TH/MM3 (150-450); RED BLOOD COUNT 4.04 MIL/MM3 (4.00-5.30); RED CELL DISTRIBUTION WIDTH 17.5 % (11.6-17.2); REVIEW FLAG FINAL
[2016-10-04 04:16] LABS: BICARBONATE 21.9 MEQ/L (21.0-32.0); POTASSIUM 3.5 MEQ/L (3.5-5.1)
[2016-10-04] MEDS: METOCLOPRAMIDE HCL 10 MG/2 ML VIAL IV SCH ×3 (04:51→20:45)
[2016-10-04] MEDS: hydrALAZINE HCL 25 MG TAB PO SCH ×3 (04:51→20:45)
[2016-10-04] MEDS: FREE WATER G-TUBE SCH ×3 (04:51→20:46)
[2016-10-04] MEDS: PANTOPRAZOLE SODIUM 40 MG VIAL IV PUSH SCH ×2 (04:51→14:25)
[2016-10-04] MEDS: MEROPENEM INJ 500 MG in SODIUM CHLORIDE 0.9% INJ 100 ML IV SCH ×3 (04:51→20:45)
[2016-10-04 08:30] LABS: C. DIFF EPI 027 PRESUMPTIVE NEGATIVE (NEGATIVE); C. DIFF TOXIN PCR NEGATIVE (NEGATIVE)
[2016-10-04] MEDS: CALAMINE/PRAMOXINE LOTION 180 ML BTL TOPICAL SCH ×2 (09:00→20:45)
[2016-10-04] MEDS: PETROLATUM 49%/ZINC OXIDE 15% 4 OUNCE TUBE TOPICAL SCH (09:00)
[2016-10-04] MEDS: SODIUM CHLORIDE 0.9% FLUSH 5 ML FLUSH IV FLUSH SCH ×2 (09:00→20:46)
[2016-10-04] MEDS: BACITRACIN TOP OINT 15 GM TUBE TOP SCH ×2 (09:00→20:45)
[2016-10-04] MEDS: BETAMETHASONE DIPROPIONATE 0.05% CREAM 15 GM TOPICAL SCH ×2 (09:00→20:45)
--- NOTE | 2016-10-04 09:32 | HHI.CCPN ---
Subjective Remarks/Hospital Course 60-year-old female transferred to [facility] after Halicat was called due to acute hypoxemic respiratory failure and acute metabolic encephalopathy most likely secondary to severe sepsis. Patient was previously seen by critical care on August 14, 2016. Patient has past medical history significant for cerebral aneurysm repair, seizures, HTN, Hep C, tobacco abuse and is aphasic at baseline, left hemiparesis who originally presented to [facility] on 05/31/16 with failure to thrive, sepsis, decubitus ulcers on her sacrum, buttocks, heels. Plastic surgery consulted and managed wounds with wound vac; underwent laparoscopic diverting colostomy 07/15/16. On 08/13 she underwent colostomy revision per Dr. Faulkner due to peristomal hernia. On last ICU admission for respiratory failure and hypotension was seen by Dr. Vega. Per her notes postintubation patient developed mucous plug on the R requiring therapeutic bronchoscopy. Patient was extubated and later transferred to hospitalist service next day. Had a prolonged hospital course since then complicated with multiple sepsis episodes, including gram-negative bacteremia. BAL from 08/14/16 bronchoscopy grew Proteus mirabilis, ESBL Klebsiella and MSSA which was treated in consult with ID. Blood cultures from 08/14/16 grew Proteus mirabilis. Since then other pertinent cultures were blood culture positive for Proteus on , urine culture positive for Proteus on 09/10/15. Critical care medicine was consulted 2/3 after a Halicat. Patient became more hypoxemic with sats dropping to low 80s and was placed on 100% percent nonrebreather. PO2 on 100% nonrebreather was only 70. I evaluated the patient once she arrived in the ICU. Patient was in respiratory distress, with an altered mental status, not responding to painful stimuli. Patient was emergently intubated and placed on mechanical ventilation. I also placed an emergent right subclavian central line. Post intubation blood pressure dropped to systolic 80s and I placed her on Levophed. I discussed case extensively with ID Dr. Rascon. Patient will be placed on Vanco, Meropenem, Flagyl and Micafungin. A CT pulmonary angiogram and CT abdomen pelvis has been ordered SUBJ 09/27: Emergently intubated and placed on mechanical ventilation yesterday for acute hypoxemic respiratory failure, failure to protect airway. CT pulmonary angiogram showed right upper lobe pulmonary emboli, multiple pulmonary nodules infectious versus inflammatory versus malignant, and possible gastric fundus mass. CT abdomen and pelvis showed evidence of acute pancreatitis and large yary-ileostomy hernia. Patient remains in septic shock on Levophed and vasopressin. Chemistry pending today 09/28: Remains critically ill, hemoglobin dropped from 8.2-6.3, no obvious external bleeding. Renal failure worsening. On IV heparin, patient remains unresponsive off sedation. Need CT abdomen pelvis to rule out retroperitoneal bleed, CT head to rule out intracranial bleed 09/29: Received 1 unit PRBC yesterday, hemoglobin is 7.[address] abdomen pelvis and CT head pending at this time. Oliguric with 15 KG weight gain, severely acidemic with bicarbonate of 10. Creatinine increased to 2.4. Discussed with nephrology will start hemodialysis today 09/30: EEG 09/29 Significant right central seizure focus. Cerebyx 1 GM loading dose and 100, 2 mg IV Ativan. Her AMS most likely from subclinical seizures. Remains afebrile and off pressors. Tachycardic. No improvement in neuro. Eyes spontaneously open, occasionally moves right lower extremity but no withdrawal in right upper or lower. Urine output 475 mL. All cultures since 09/26 had been negative 10/01: Hemoglobin 6.5 today, received 2 units of blood with recheck 10.5. After GJ tube was placed, GI aspirated blood from G portion. Plan for probable EGD tomorrow. Off pressors. Encephalopathy not improved. EEG repeated today Report pending 10/02: hgb improved from yesterday. plan for EGD today. getting IHD today as well. INR elevated, may be nutritional deficiency. EEG with persistent focus of spikes, could be seizure focus. will re-engage neurology. 10/03: mental status continues to improve. passed her SBT today. no EGD yesterday or today as bleeding as apparently slowed down. hgb stable. 10/04: remained extubated overnight. heparin restarted yesterday. hgb stable. Objective Vital Signs Date Time Temp Pulse Resp B/P Pulse Ox O2 Delivery O2 Flow Rate FiO2 10/04/16 08:39 97 Nasal Cannula 3.00 10/04/16 08:00 98.1 114 16 152/100 10/03/16 08:00 35 Intake and Output 10/03/16 10/03/16 10/04/16 08:00 16:00 00:00 Intake Total 290 ml 432 ml 426 ml Output Total 600 ml 500 ml 570 ml Balance -310 ml -68 ml -144 ml Result Diagram: 10/04/16 03010/04/16 0300 Imaging Imaging studies reviewed Objective Remarks GENERAL: 61 yo female lying in bed, chronically ill SKIN: Warm HEAD: Atraumatic. Normocephalic. EYES: 4 mm reactive bilaterally. No scleral icterus. No injection or drainage. R gaze preference ENT: No nasal bleeding or discharge. Mucous membranes dry NECK: Trachea midline, scar from prior tracheostomy. CARDIOVASCULAR: Tachycardic. No murmurs rubs or gallops. Off pressors RESPIRATORY: Air entry diminished bilaterally with few coarse rhonchi, no wheezes GASTROINTESTINAL: Abdomen obese, soft, ostomy mucosa pink. GJ in place. L hip wound vac in place. Large hernia associated with colostomy : [facility] in place. MUSCULOSKELETAL: Extremities without clubbing, cyanosis. Anasarca + NEUROLOGICAL: Eyes are spontaneously open, with R gaze preference. follows commands on left. Procedures PEG Colostomy 08/28- revision colostomy , repair of parastomal hernia A/P Assessment and Plan Assessment and Plan NEURO: Subclinical seizure Acute toxic metabolic encephalopathy History of cerebral aneurysm clip in 2007 Baseline L hemiparesis and aphasia -Encephalopathy secondary to subclinical seizure. EEG 09/29-Significant right central seizure focus. Repeat EEG 10/01 with persistent spikes - 09/30 Cerebyx 1 GM loading dose followed by 100 mg IV q8. -continues off sedation. -Repeat CT 09/29 negative RESP: Acute hypoxemic respiratory failure Right upper lobe pulmonary embolism Multiple bilateral pulmonary nodules Left lower lobe pneumonia/effusion/HCAP History of tracheostomy COPD, History of Tobacco abuse -extubated 10/03. - wean o2 by NC for goal spo2 > 90%. - nebs prn -IV Heparin PE protocol -F/U sputum culture-neg to date -Antibiotics per ID (vancomycin, Meropenem, Flagyl, micafungin) -Pulmonary consult appreciated-Dr Rg CV: Septic shock Fluid overload -09/26/16 Normal saline 3 L bolus -Off Norepinephrine, Vasopressin. s/p stress dose steroids with hydrocort. -2 D Echo 12/25/15 with EF 55-60%. Normal wall motion. Mild LVH -Hold hydralazine lisinopril and metoprolol -Left Bpacjf-i-Qznh extraction was attempted 09/20/16. Catheter fractured below the clavicle. -Per Dr. 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 Increasing induration of Pancrease -s/p GJ tube placement -GI aspirated blood from G portion- possible endoscopy in am -On IV Flagyl for C. difficile colitis,added Fidaxomicin -Diverting colostomy 07/15/16. Revision 08/13/[address] Faulkner. -NPO except meds, -IV Protonix FEN/RENAL: Acute kidney injury. Metabolic acidemia Moderate protein energy malnutrition -[facility] in place. Monitor intake and output closely. Started HD 09/29 -Monitor BUN and creatinine daily, improving ID: Septic shock-resolved New LLL HCAP C Diff Colitis Prev HCAP 08/14 with ESBL Klebsiella, MSSA, Proteus Proteus bacteremia 08/14 and 09/20 Non stageable necrotic decubitus ulcer L buttocks - wound management per plastics /wound care UTI -Currently receiving Meropenem IV, Vanco IV, Flagyl IV, Dificid oral, Vanco oral and Micafungin IV. De escalate per ID Pertinent cultures: 2/3 blood urine and sputum cultures are neg to date 09/10 Urine Proteus 09/10 Blood Proteus 09/01 Urine C tropicalis 08/14 BAL Proteus, ESBL Klebsiella, MSSA 08/14 Blood Proteus 08/14 Urine Escherichia coli, Pseudomonas HEME: Acute PE Anemia requiring transfusion -Continue IV heparin .EGD am. -Monitor CBC-transfused 1 U PRBC 09/28, 2U 10/01/16 -U/s bilateral lower extremity negative for DVT 06/01, 09/25 -US Padyd upper ext neg 09/18, 09/26 except L cephalic vein not visualized ENDO: -Low-dose ISS for glycemic control, accucheck q6. -s/p stress dose steroids. PROPH: -IV Hparin. Protonix 40 mg IV daily for stress ulcer prophylaxis. ACCESS: -Port in L chest removed09/20/16-unsuccessful, catheter fractured below clavicle. -R subclavian central line placed 09/26/16 -Placed R\IJ HD catheter 09/29/16 SOCIAL: -DCF previously notified for neglect Dispo: I think she is safe for transfer to the floor with hospitalist services following. Morgan Thompson MD Oct 04, 2016 09:32
[2016-10-04] MEDS: POTASSIUM CL 40 MEQ/30 ML LIQ UDC GT SCH (09:43)
[2016-10-04] MEDS: MULTIVITAMIN TAB PO SCH (09:44)
[2016-10-04] MEDS: LACTOBACILLUS ACIDOPHILUS TAB PO SCH ×3 (09:44→17:18)
--- NOTE | 2016-10-04 13:23 | HHI.NPPN ---
Subjective History of Present Illness 61-year-old female with past medical history of cerebellar aneurysm repair, seizure disorder, hypertension, hepatitis C. She was admitted on May 31 with failure to thrive. I was called to see the patient because of acute kidney injury. The patient had creatinine of 1.23 on admission which improved and then she had increase in the creatinine to 1.27 in June and on August 14 and then it went up to 2.0 and for the last week or so it has been going up again. The patient has had a prolonged hospital course with multiple episodes of infection including pneumonia, urinary tract infection, sepsis. Infectious Disease has been following and the patient has been getting antibiotics. Additional Remarks Patient is more alert, answering some questions, not in distress. Objective Data Data 10/03/16 10/04/16 19:00 07:00 Intake Total 432 ml 972 ml Output Total 500 ml 1105 ml Balance -68 ml -133 ml IV Total 192 ml 286 ml Tube Feeding 286 ml Other 240 ml 400 ml Output Urine Total 400 ml 770 ml Stool Total 100 ml 275 ml Drainage Total 0 ml 60 ml Vital Signs Date Time Temp Pulse Resp B/P Pulse Ox O2 Delivery O2 Flow Rate FiO2 10/04/16 12:00 98.0 100 18 142/93 94 10/04/16 12:00 104 10/04/16 08:39 97 Nasal Cannula 3.00 10/04/16 08:00 98.1 114 16 152/100 97 10/04/16 08:00 115 10/04/16 06:00 114 10/04/16 04:00 98.3 116 20 147/94 97 10/04/16 04:00 116 10/04/16 02:00 118 10/04/16 00:00 124 10/04/16 00:00 97.6 124 24 134/89 97 10/03/16 22:00 122 10/03/16 21:03 98 Nasal Cannula 3.00 10/03/16 20:00 114 10/03/16 20:00 97.5 118 24 159/99 98 10/03/16 18:00 117 10/03/16 16:00 97.9 120 28 161/102 100 10/03/16 14:00 114 -: 10/04/16 0300 10/04/16 0300 Physical Exam General Appearance: No Acute Distress, Comfortable, Anxious Eyes Eye Exam: Pupils Equal Throat Throat Exam: Oral Mucosa [place] & Moist Pulmonary Resp Exam: Crackles, Rhonchi, Decreased Bases, Diminished Breath Sounds Cardiology CV Exam: Regular Gastrointestinal/Abdomen GI Exam: Soft, Non-Tender, Distended (with colostomy.) Extremeties Extremities Exam: Moderate Edema, Pitting Edema, Dependent Edema Neurologic Neuro Exam: Alert, Awake Assessment/Plan Assessment Summary: IMELDA/Acute Renal Failure Electrolyte Assessment: Metabolic Acidosis Problem List: (1) Anemia (2) Lactic acidosis (3) Acute respiratory failure (4) Cellulitis (5) Edema (6) COPD (chronic obstructive pulmonary disease) (7) History of CVA (cerebrovascular accident) (8) Essential hypertension (9) IMELDA (acute kidney injury) Plan Urine out put is better Continue antibiotics as per ID. Avoid Nephrotoxins. Last HD was done . Slight increase in the Creatinine. Follow urine out put and BMP. Follow the urine out put and BMP. Hold HD for now. Problem Qualifiers (1) Anemia: (2) Acute respiratory failure: Qualified Code: J96.00 - Acute respiratory failure, unspecified whether with hypoxia or hypercapnia (3) COPD (chronic obstructive pulmonary disease): Chantel Redmond MD Oct 04, 2016 13:23
[2016-10-04] MEDS: METOPROLOL TARTRATE 50 MG TAB GT SCH ×2 (14:24→23:06)
[2016-10-04] MEDS: HEPARIN-D5W INJ 250 ML IV SCH (20:47)
[2016-10-05] VITALS: BP 131/88; PULSE 91; PULSE 93; RESP 18; TEMP 98.1; O2SAT 94
[2016-10-05] MEDS: FOSPHENYTOIN INJ 100 MGPE in SODIUM CHLORIDE 0.9% INJ 50 ML IV SCH ×3 (01:00→17:43)
[2016-10-05] MEDS: PANTOPRAZOLE SODIUM 40 MG VIAL IV PUSH SCH ×2 (03:45→14:40)
[2016-10-05] MEDS: MEROPENEM INJ 500 MG in SODIUM CHLORIDE 0.9% INJ 100 ML IV SCH ×3 (04:00→22:43)
[2016-10-05] MEDS: FREE WATER G-TUBE SCH ×3 (04:20→22:00)
[2016-10-05] MEDS: METOCLOPRAMIDE HCL 10 MG/2 ML VIAL IV SCH ×3 (06:00→22:41)
[2016-10-05] MEDS: POTASSIUM PHOSPHATE/SODIUM PHOSPHATE 250 MG TAB PO SCH ×4 (06:00→22:42)
[2016-10-05] MEDS: hydrALAZINE HCL 25 MG TAB PO SCH ×3 (06:00→22:42)
[2016-10-05] MEDS: METOPROLOL TARTRATE 50 MG TAB GT SCH ×3 (06:38→22:42)
[2016-10-05 08:00] VITALS: BP 149/87; PULSE 86; RESP 19; TEMP 97.9; O2SAT 95
[2016-10-05] MEDS: BETAMETHASONE DIPROPIONATE 0.05% CREAM 15 GM TOPICAL SCH ×2 (09:24→21:00)
[2016-10-05] MEDS: MULTIVITAMIN TAB PO SCH (09:24)
[2016-10-05] MEDS: SODIUM CHLORIDE 0.9% FLUSH 5 ML FLUSH IV FLUSH SCH ×2 (09:24→22:41)
[2016-10-05] MEDS: PETROLATUM 49%/ZINC OXIDE 15% 4 OUNCE TUBE TOPICAL SCH (09:24)
[2016-10-05] MEDS: BACITRACIN TOP OINT 15 GM TUBE TOP SCH ×2 (09:24→21:00)
[2016-10-05] MEDS: CALAMINE/PRAMOXINE LOTION 180 ML BTL TOPICAL SCH ×2 (09:24→21:00)
[2016-10-05] MEDS: POTASSIUM CL 40 MEQ/30 ML LIQ UDC GT SCH (09:24)
[2016-10-05] MEDS: LACTOBACILLUS ACIDOPHILUS TAB PO SCH ×3 (09:24→17:43)
[2016-10-05 11:42] VITALS: O2SAT 98
--- NOTE | 2016-10-05 11:52 | HHI.NPPN ---
Subjective History of Present Illness 61-year-old female with past medical history of cerebellar aneurysm repair, seizure disorder, hypertension, hepatitis C. She was admitted on May 31 with failure to thrive. I was called to see the patient because of acute kidney injury. The patient had creatinine of 1.23 on admission which improved and then she had increase in the creatinine to 1.27 in June and on August 14 and then it went up to 2.0 and for the last week or so it has been going up again. The patient has had a prolonged hospital course with multiple episodes of infection including pneumonia, urinary tract infection, sepsis. Infectious Disease has been following and the patient has been getting antibiotics. Additional Remarks Patient is more alert, not in distress, on room air. Objective Data Data 10/04/16 10/05/16 19:00 07:00 Intake Total 802 ml 1686 ml Output Total 620 ml 1050 ml Balance 182 ml 636 ml IV Total 214 ml 514 ml Tube Feeding 388 ml 772 ml Other 200 ml 400 ml Output Urine Total 350 ml 850 ml Stool Total 250 ml 200 ml Drainage Total 20 ml 0 ml Vital Signs Date Time Temp Pulse Resp B/P Pulse Ox O2 Delivery O2 Flow Rate FiO2 10/05/16 08:00 97.9 86 19 149/87 95 10/05/16 00:00 93 10/05/16 00:00 98.1 91 18 131/88 94 10/04/16 20:15 95 Nasal Cannula 3.00 10/04/16 20:00 97.8 100 16 127/82 94 10/04/16 20:00 96 10/04/16 16:00 98.2 95 18 132/91 93 10/04/16 16:00 95 10/04/16 12:00 98.0 100 18 142/93 94 10/04/16 12:00 104 -: 10/04/16 0300 10/04/16 0300 Physical Exam General Appearance: No Acute Distress, Comfortable, Anxious Eyes Eye Exam: Pupils Equal Throat Throat Exam: Oral Mucosa [place] & Moist Pulmonary Resp Exam: Crackles, Rhonchi, Decreased Bases, Diminished Breath Sounds Cardiology CV Exam: Regular Gastrointestinal/Abdomen GI Exam: Soft, Non-Tender, Distended (with colostomy.) Extremeties Extremities Exam: Moderate Edema, Pitting Edema, Dependent Edema Neurologic Neuro Exam: Alert, Awake Assessment/Plan Assessment Summary: IMELDA/Acute Renal Failure Electrolyte Assessment: Metabolic Acidosis Problem List: (1) Anemia (2) Lactic acidosis (3) Acute respiratory failure (4) Cellulitis (5) Edema (6) COPD (chronic obstructive pulmonary disease) (7) History of CVA (cerebrovascular accident) (8) Essential hypertension (9) IMELDA (acute kidney injury) Plan Urine out put is better Continue antibiotics as per ID. Avoid Nephrotoxins. Last HD was done . Follow the urine out put and BMP. No new BMP today, on Kcl supplement. Check BMP in AM. D/C Vascath if continue to improve or stable. Problem Qualifiers (1) Anemia: (2) Acute respiratory failure: Qualified Code: J96.00 - Acute respiratory failure, unspecified whether with hypoxia or hypercapnia (3) COPD (chronic obstructive pulmonary disease): Chantel Redmond MD Oct 05, 2016 11:52
[2016-10-05 12:00] VITALS: BP 155/81; PULSE 78; RESP 16; TEMP 96.8; O2SAT 94
[2016-10-05 16:00] VITALS: BP 157/95; PULSE 99; RESP 19; TEMP 97.5; O2SAT 96
[2016-10-05 16:28] LABS: HEMATOCRIT 37.7 % (35.0-46.0); MEAN CELL VOLUME 84.6 FL (80.0-100.0); MEAN CORPUSCULAR HEMOGLOBIN 27.5 PG (27.0-34.0); MEAN CORPUSCULAR HGB CONC 32.5 % (32.0-36.0); PLATELET COUNT 187 TH/MM3 (150-450); RED BLOOD COUNT 4.46 MIL/MM3 (4.00-5.30); RED CELL DISTRIBUTION WIDTH 18.9 % (11.6-17.2); REVIEW FLAG FINAL; WHITE BLOOD COUNT 17.9 TH/MM3 (4.0-11.0)
[2016-10-05 16:42] LABS: APTT (PATIENT) 39.2 SEC (24.3-30.1)
[2016-10-05 17:09] LABS: BICARBONATE 23.1 MEQ/L (21.0-32.0); POTASSIUM 4.9 MEQ/L (3.5-5.1)
[2016-10-05 18:49] LABS: ALKALINE PHOSPHATASE 179 U/L (45-117); ALT (GPT) 8 U/L (10-53); ANION GAP 15 MEQ/L (5-15); AST (GOT) 20 U/L (15-37); BICARBONATE 18.1 MEQ/L (21.0-32.0); BLOOD UREA NITROGEN 26 MG/DL (7-18); CHLORIDE 107 MEQ/L (98-107); GLOMERULAR FILTRATION RATE 23 ML/MIN (>89); SODIUM (NA) 140 MEQ/L (136-145); TOTAL BILIRUBIN ADULT 0.5 MG/DL (0.2-1.0)
[2016-10-05 19:16] LABS: AUTOMATED NEUTROPHIL # 14.4 TH/MM3 (1.8-7.7); BASOPHIL # 0.1 TH/MM3 (0-0.2); BASOPHIL % 0.4 % (0.0-2.0); EOSINOPHIL # 0.9 TH/MM3 (0-0.4); EOSINOPHIL % 4.8 % (0.0-4.0); LYMPH % 8.4 % (9.0-44.0); LYMPHOCYTE # 1.5 TH/MM3 (1.0-4.8); MEAN CELL VOLUME 84.8 FL (80.0-100.0); MEAN CORPUSCULAR HEMOGLOBIN 27.5 PG (27.0-34.0); MEAN CORPUSCULAR HGB CONC 32.4 % (32.0-36.0); NEUT % 79.4 % (16.0-70.0); PLATELET COUNT 192 TH/MM3 (150-450); RED BLOOD COUNT 4.48 MIL/MM3 (4.00-5.30); RED CELL DISTRIBUTION WIDTH 18.4 % (11.6-17.2); WHITE BLOOD COUNT 18.1 TH/MM3 (4.0-11.0)
[2016-10-05 19:23] LABS: HEMO FLAGS AUTO DIFF
[2016-10-05 20:13] LABS: BANDS 12 % (0-6); CORRECTED NUCLEATED RBC 1 /100 WBC (0-0); EOSINOPHILS 1 % (0-4); METAMYELOCYTES 1 % (0-1); MYELOCYTES 7 % (0-0); POLYS (SEG NEUTROPHILS) 74 % (16-70); WBC DIFF SAMPLE 100
[2016-10-05 20:14] LABS: PLATELET ESTIMATE SMEAR NORMAL (NORMAL); PLATELET MORPHOLOGY NORMAL (NORMAL); SCAN/DIFF FINAL DIFF MANUAL; TOXIC GRANULATION 1+ (NORMAL); TOXIC VACUOLATION PRESENT (NONE SEEN)
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
[2016-10-05 22:00] VITALS: BP 150/89; PULSE 115; RESP 23; TEMP 98.9; O2SAT 98
[2016-10-06] VITALS (9 sets, daily range): BP systolic 143–155; BP diastolic 68–104; PULSE 97–111; RESP 20–28; TEMP 97.3–98.1; O2SAT 85–99
[2016-10-06] MEDS: FOSPHENYTOIN INJ 100 MGPE in SODIUM CHLORIDE 0.9% INJ 50 ML IV SCH ×3 (00:06→16:31)
[2016-10-06] MEDS: PANTOPRAZOLE SODIUM 40 MG VIAL IV PUSH SCH ×2 (03:59→16:05)
[2016-10-06] MEDS: MEROPENEM INJ 500 MG in SODIUM CHLORIDE 0.9% INJ 100 ML IV SCH ×3 (04:00→23:39)
[2016-10-06] MEDS: METOPROLOL TARTRATE 50 MG TAB GT SCH ×3 (05:55→23:39)
[2016-10-06] MEDS: POTASSIUM PHOSPHATE/SODIUM PHOSPHATE 250 MG TAB PO SCH ×4 (05:55→23:39)
[2016-10-06] MEDS: hydrALAZINE HCL 25 MG TAB PO SCH ×3 (05:55→21:38)
[2016-10-06] MEDS: METOCLOPRAMIDE HCL 10 MG/2 ML VIAL IV SCH ×3 (05:56→21:38)
[2016-10-06] MEDS: FREE WATER G-TUBE SCH ×3 (05:56→21:38)
[2016-10-06 06:50] LABS: APTT (PATIENT) 37.4 SEC (24.3-30.1)
[2016-10-06 06:51] LABS: AUTOMATED NEUTROPHIL # 10.6 TH/MM3 (1.8-7.7); BASOPHIL # 0.1 TH/MM3 (0-0.2); BASOPHIL % 0.7 % (0.0-2.0); EOSINOPHIL # 0.9 TH/MM3 (0-0.4); EOSINOPHIL % 6.6 % (0.0-4.0); HEMATOCRIT 34.2 % (35.0-46.0); LYMPH % 7.6 % (9.0-44.0); MEAN CELL VOLUME 83.6 FL (80.0-100.0); MEAN CORPUSCULAR HEMOGLOBIN 28.1 PG (27.0-34.0); MEAN CORPUSCULAR HGB CONC 33.6 % (32.0-36.0); MONO % 7.6 % (0.0-8.0); NEUT % 77.5 % (16.0-70.0); PLATELET COUNT 188 TH/MM3 (150-450); RED BLOOD COUNT 4.09 MIL/MM3 (4.00-5.30); RED CELL DISTRIBUTION WIDTH 18.3 % (11.6-17.2); WHITE BLOOD COUNT 13.7 TH/MM3 (4.0-11.0)
[2016-10-06 07:01] LABS: HEMO FLAGS AUTO DIFF
[2016-10-06 07:31] LABS: ALKALINE PHOSPHATASE 202 U/L (45-117); ALT (GPT) 10 U/L (10-53); ANION GAP 10 MEQ/L (5-15); BICARBONATE 22.4 MEQ/L (21.0-32.0); BLOOD UREA NITROGEN 32 MG/DL (7-18); CHLORIDE 109 MEQ/L (98-107); GLOMERULAR FILTRATION RATE 23 ML/MIN (>89); SODIUM (NA) 141 MEQ/L (136-145); TOTAL BILIRUBIN ADULT 0.5 MG/DL (0.2-1.0)
[2016-10-06 07:35] LABS: AST (GOT) 23 U/L (15-37); MAGNESIUM 1.5 MG/DL (1.5-2.5); POTASSIUM 4.4 MEQ/L (3.5-5.1)
[2016-10-06] MEDS: SODIUM CHLORIDE 0.9% FLUSH 5 ML FLUSH IV FLUSH SCH ×2 (08:19→21:37)
[2016-10-06] MEDS: MULTIVITAMIN TAB PO SCH (08:19)
[2016-10-06] MEDS: POTASSIUM CL 40 MEQ/30 ML LIQ UDC GT SCH (08:19)
[2016-10-06] MEDS: LACTOBACILLUS ACIDOPHILUS TAB PO SCH ×3 (08:20→17:02)
[2016-10-06 08:26] LABS: BANDS 6 % (0-6); BASOPHILS 2 % (0-2); EOSINOPHILS 1 % (0-4); MYELOCYTES 2 % (0-0); NEUTROPHIL # MANUAL DIFF 11.9 TH/MM3 (1.8-7.7); POLYS (SEG NEUTROPHILS) 79 % (16-70); WBC DIFF SAMPLE 100
[2016-10-06 08:27] LABS: PLATELET ESTIMATE SMEAR NORMAL (NORMAL); PLATELET MORPHOLOGY NORMAL (NORMAL); SCAN/DIFF FINAL DIFF MANUAL
[2016-10-06] MEDS: BETAMETHASONE DIPROPIONATE 0.05% CREAM 15 GM TOPICAL SCH ×2 (08:27→21:40)
[2016-10-06] MEDS: CALAMINE/PRAMOXINE LOTION 180 ML BTL TOPICAL SCH ×2 (08:27→21:39)
[2016-10-06] MEDS: BACITRACIN TOP OINT 15 GM TUBE TOP SCH ×2 (08:28→21:40)
[2016-10-06] MEDS: PETROLATUM 49%/ZINC OXIDE 15% 4 OUNCE TUBE TOPICAL SCH (08:34)
[2016-10-06] MEDS ORDERED: SODIUM CHLOR 0.9% 1000 ML INJ 1,000 ML IV SCH (09:00)
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
--- NOTE | 2016-10-06 09:40 | HHI.HCPN ---
Reason for visit a. To assist with evaluation and management of symptoms including: pain b. To assist medical decision maker(s) with: better understanding of current medical conditions; weighing benefits/burdens of medical treatment options; making medical treatment decisions. Subjective/Interval History Pt was extubated and transferred to hospitalist service over the weekend. Anemia more stable and heparin for PE. Remains on tube feedings. Pt could not follow commands. She does track, but is not verbal for me during my visit. Family/friend interactions Spoke with spouse. He expressed strong frustration that certain aspects of the medical care/ procedure etc contributed to patient's decline. We went through her course of hospitalization, her diverting colostomy and revision, her complications with icu stay, various infections, PE, her subclinical seizures, acute pancreatitis ...etc. I told him I am worry, given all these factors, it will be hard for her to get well and functional again. We talked about code status and goals of care. He endorses "I want to get her better. Do everything you call." Endorses full code. Appreciative palliative to continue to follow. goals of care remains aggressive. Advance Directives Living Will: Never completed Health Care Surrogate: Never completed Durable Power of Broadcast Designer: Never completed Objective Vital Signs Date Time Temp Pulse Resp B/P Pulse Ox O2 Delivery O2 Flow Rate FiO2 10/06/16 08:26 97.3 97 20 152/104 94 10/06/16 04:45 97.3 100 20 152/96 99 10/06/16 00:30 97.5 100 22 155/90 97 10/05/16 22:00 98.9 115 23 150/89 98 10/05/16 19:36 21 10/05/16 16:00 97.5 99 19 157/95 96 10/05/16 12:00 96.8 78 16 155/81 94 10/05/16 11:42 98 21 Intake & Output 10/06/16 10/06/16 07:00 19:00 Intake Total 1061 ml Output Total 3600 ml Balance -2539 ml Intake Oral 0 ml IV Total 267 ml Tube Feeding 794 ml Output Urine Total 1900 ml Stool Total 1700 ml Physical Exam CONSTITUTIONAL/GENERAL: This is an adequately nourished patient,intubated, eyes open, could not follow commands. TUBES/LINES/DRAINS:wound vac, right IJ, lu, tube feedings SKIN: No jaundice, rashes, or lesions. Ecchymoses on upper extremities. No wounds seen anteriorly. Skin temperature appropriate. Not diaphoretic. HEAD: Atraumatic. Normocephalic. EYES: Open,. tracking. No scelera icterus. Fundi not examined. ENT: Hearing grossly normal. Nose without bleeding or purulent drainage. NECK: Trachea midline. Supple, nontender. No palpable thyroid enlargement or nodularity. CARDIOVASCULAR: Regular rate and rhythm without murmurs, gallops, or rubs. No JVD. Peripheral pulses symmetric. RESPIRATORY/CHEST: Symmetric, decreased breath sound bilaterally. No wheezes, rales, or rhonchi. GASTROINTESTINAL: Abdomen soft, non-tender, on palpation. BS present. Colstomy bag GENITOURINARY: Without palpable bladder distension. MUSCULOSKELETAL: edematous upper and lower ext. LYMPHATICS: No palpable cervical or supraclavicular adenopathy. NEUROLOGICAL:Opens eyes, non communicative, Diagnostic Tests Laboratory Laboratory Tests Test 10/03/16 10/04/16 10/04/16 10/05/16 18:50 03:00 05:00 14:40 Hemoglobin 11.5 GM/DL 10.9 GM/DL 12.3 GM/DL (11.6-15.3) (11.6-15.3) (11.6-15.3) Hematocrit 34.9 % 33.5 % 38.0 % (35.0-46.0) (35.0-46.0) (35.0-46.0) Activated Partial 41.3 SEC 45.0 SEC 39.2 SEC Thromboplast Time (24.3-30.1) (24.3-30.1) (24.3-30.1) White Blood Count 17.0 TH/MM3 18.1 TH/MM3 (4.0-11.0) (4.0-11.0) Red Blood Count 4.04 MIL/MM3 4.48 MIL/MM3 (4.00-5.30) (4.00-5.30) Mean Corpuscular Volume 83.0 FL 84.8 FL (80.0-100.0) (80.0-100.0) Mean Corpuscular Hemoglobin 27.1 PG 27.5 PG (27.0-34.0) (27.0-34.0) Mean Corpuscular Hemoglobin 32.6 % 32.4 % Concent (32.0-36.0) (32.0-36.0) Red Cell Distribution Width 17.5 % 18.4 % (11.6-17.2) (11.6-17.2) Platelet Count 172 TH/MM3 192 TH/MM3 (150-450) (150-450) Mean Platelet Volume 9.0 FL 9.4 FL (7.0-11.0) (7.0-11.0) Sodium Level 141 MEQ/L 140 MEQ/L (136-145) (136-145) Potassium Level 3.5 MEQ/L 5.0 MEQ/L (3.5-5.1) (3.5-5.1) Chloride Level 106 MEQ/L 107 MEQ/L (98-107) (98-107) Carbon Dioxide Level 21.9 MEQ/L 18.1 MEQ/L (21.0-32.0) (21.0-32.0) Anion Gap 13 MEQ/L (5-15) 15 MEQ/L (5-15) Blood Urea Nitrogen 17 MG/DL (7-18) 26 MG/DL (7-18) Creatinine 1.89 MG/DL 2.15 MG/DL (0.50-1.00) (0.50-1.00) Estimat Glomerular Filtration 27 ML/MIN (>89) 23 ML/MIN (>89) Rate Random Glucose 122 MG/DL 113 MG/DL (74-106) (74-106) Calcium Level 7.9 MG/DL 8.2 MG/DL (8.5-10.1) (8.5-10.1) Stool C. difficile Toxin (PCR) NEGATIVE (NEGATIVE) Stl C. difficile Toxin PRESUMPTIVE Epiderm 027 NEGATIVE (NEGATIVE) Neutrophils (%) (Auto) 79.4 % (16.0-70.0) Lymphocytes (%) (Auto) 8.4 % (9.0-44.0) Monocytes (%) (Auto) 7.0 % (0.0-8.0) Eosinophils (%) (Auto) 4.8 % (0.0-4.0) Basophils (%) (Auto) 0.4 % (0.0-2.0) Neutrophils # (Auto) 14.4 TH/MM3 (1.8-7.7) Lymphocytes # (Auto) 1.5 TH/MM3 (1.0-4.8) Monocytes # (Auto) 1.3 TH/MM3 (0-0.9) Eosinophils # (Auto) 0.9 TH/MM3 (0-0.4) Basophils # (Auto) 0.1 TH/MM3 (0-0.2) CBC Comment AUTO DIFF Differential Total Cells 100 Counted Neutrophils % (Manual) 74 % (16-70) Band Neutrophils % 12 % (0-6) Lymphocytes % 2 % (9-44) Monocytes % 3 % (0-8) Eosinophils % 1 % (0-4) Neutrophils # (Manual) 17.0 TH/MM3 (1.8-7.7) Metamyelocytes 1 % (0-1) Myelocytes 7 % (0-0) Nucleated Red Blood Cells 1 /100 WBC (0-0) Differential Comment FINAL DIFF MANUAL Toxic Granulation 1+ (NORMAL) Toxic Vacuolation PRESENT (NONE SEEN) Platelet Estimate NORMAL (NORMAL) Platelet Morphology Comment NORMAL (NORMAL) Red Cell Morphology Comment NORMAL (NORMAL) Total Bilirubin 0.5 MG/DL (0.2-1.0) Aspartate Amino Transf 20 U/L (15-37) (AST/SGOT) Alanine Aminotransferase 8 U/L (10-53) (ALT/SGPT) Alkaline Phosphatase 179 U/L (45-117) Total Protein 6.7 GM/DL (6.4-8.2) Albumin 2.5 GM/DL (3.4-5.0) Test 10/06/16 06:00 White Blood Count 13.7 TH/MM3 (4.0-11.0) Red Blood Count 4.09 MIL/MM3 (4.00-5.30) Hemoglobin 11.5 GM/DL (11.6-15.3) Hematocrit 34.2 % (35.0-46.0) Mean Corpuscular Volume 83.6 FL (80.0-100.0) Mean Corpuscular Hemoglobin 28.1 PG (27.0-34.0) Mean Corpuscular Hemoglobin 33.6 % Concent (32.0-36.0) Red Cell Distribution Width 18.3 % (11.6-17.2) Platelet Count 188 TH/MM3 (150-450) Mean Platelet Volume 9.2 FL (7.0-11.0) Neutrophils (%) (Auto) 77.5 % (16.0-70.0) Lymphocytes (%) (Auto) 7.6 % (9.0-44.0) Monocytes (%) (Auto) 7.6 % (0.0-8.0) Eosinophils (%) (Auto) 6.6 % (0.0-4.0) Basophils (%) (Auto) 0.7 % (0.0-2.0) Neutrophils # (Auto) 10.6 TH/MM3 (1.8-7.7) Lymphocytes # (Auto) 1.0 TH/MM3 (1.0-4.8) Monocytes # (Auto) 1.0 TH/MM3 (0-0.9) Eosinophils # (Auto) 0.9 TH/MM3 (0-0.4) Basophils # (Auto) 0.1 TH/MM3 (0-0.2) CBC Comment AUTO DIFF Differential Total Cells 100 Counted Neutrophils % (Manual) 79 % (16-70) Band Neutrophils % 6 % (0-6) Lymphocytes % 4 % (9-44) Monocytes % 6 % (0-8) Eosinophils % 1 % (0-4) Basophils % 2 % (0-2) Neutrophils # (Manual) 11.9 TH/MM3 (1.8-7.7) Myelocytes 2 % (0-0) Differential Comment FINAL DIFF MANUAL Platelet Estimate NORMAL (NORMAL) Platelet Morphology Comment NORMAL (NORMAL) Red Cell Morphology Comment NORMAL (NORMAL) Activated Partial 37.4 SEC Thromboplast Time (24.3-30.1) Sodium Level 141 MEQ/L (136-145) Potassium Level 4.4 MEQ/L (3.5-5.1) Chloride Level 109 MEQ/L (98-107) Carbon Dioxide Level 22.4 MEQ/L (21.0-32.0) Anion Gap 10 MEQ/L (5-15) Blood Urea Nitrogen 32 MG/DL (7-18) Creatinine 2.15 MG/DL (0.50-1.00) Estimat Glomerular Filtration 23 ML/MIN (>89) Rate Random Glucose 126 MG/DL (74-106) Calcium Level 7.8 MG/DL (8.5-10.1) Phosphorus Level 3.1 MG/DL (2.5-4.9) Magnesium Level 1.5 MG/DL (1.5-2.5) Total Bilirubin 0.5 MG/DL (0.2-1.0) Aspartate Amino Transf 23 U/L (15-37) (AST/SGOT) Alanine Aminotransferase 10 U/L (10-53) (ALT/SGPT) Alkaline Phosphatase 202 U/L (45-117) Total Protein 6.1 GM/DL (6.4-8.2) Albumin 2.2 GM/DL (3.4-5.0) Result Diagram: 10/06/16 0600 10/06/16 06 Imaging Last Impressions Chest X-Ray 10/02/16599 Signed Impressions: Service Date/Time: September 02:52 - CONCLUSION: No significant change has occurred. Evan Navarro MD Gastrostomy Tube Change 10/01/16 0000 Signed Impressions: Service Date/Time: Saturday, October 01, 2016 13:54 - CONCLUSION: 1. Uncomplicated gastrojejunostomy tube placement Reed Rico MD Head CT 09/29/16 0000 Signed Impressions: Service Date/Time: Thursday, September 29, 2016 12:54 - CONCLUSION: 1. No significant change compared to 09/25/16. 2. Extensive bilateral encephalomalacia (right worse than left) predominantly within the frontal lobes and parietal occipital lobes as well as the right temporal lobe. 3. Extensive periventricular and subcortical white matter small vessel ischemic changes bilaterally. 4. Scattered old lacunar infarcts within the bilateral basal ganglia. 5. Stable ventriculomegaly. 6. No acute hemorrhage, midline shift , or extraaxial fluid collections. Ernie Mathis MD Abdomen/Pelvis CT 09/29/16 0000 Signed Impressions: Service Date/Time: Thursday, September 29, 2016 13:01 - CONCLUSION: 1. Large hernia adjacent to the colostomy without abscess. 2. There is no free air. There is no evidence for an obstruction. 3. There is increasing induration around the pancreas. Correlation with laboratory values is suggested. Vinay Avalos MD FACR Upper Extremity Ultrasound 09/26/16 0000 Signed Impressions: Service Date/Time: Monday, September 26, 2016 20:17 - CONCLUSION: No DVT or superficial venous thrombosis is identified within either upper extremity. Please note that the left cephalic vein is not visualized. Aidan Churchill MD CT Angiography 09/26/16 0000 Signed Impressions: Service Date/Time: Monday, September 26, 2016 15:12 - CONCLUSION: 1. Several small pulmonary emboli in the right upper lobe. 2. Multiple bilateral pulmonary parenchymal nodules. Both neoplastic and inflammatory etiologies are in the differential diagnosis. 3. Mildly prominent right hilar lymph node, likely reactive. 4. Bilateral lower lobe atelectasis and small left pleural effusion. 5. Possible mass in the medial gastric fundus. Rony Espinoza MD Lower Extremity Ultrasound 09/25/16 1622 Signed Impressions: Service Date/Time: September 17:26 - CONCLUSION: No DVT of the left lower extremity. Aidan Felipe MD Vena Cav[facility] 09/22/16 1702 Signed Impressions: Service Date/Time: Thursday, September 22, 2016 15:50 - CONCLUSION: 1. Unsuccessful port removal. Reed Rico MD Abdomen X-Ray 09/16/16 0000 Signed Impressions: Service Date/Time: Friday, September 16, 2016 16:55 - CONCLUSION: G-tube in place in the body the stomach properly positioned David Rivera MD Assessment and Plan Disease Oriented Problem List: (1) Acute respiratory failure Comment: PE, pulmonary nodules, HCAP, worsening consolidation of the left. (2) Pulmonary embolism (3) Severe sepsis (4) COPD (chronic obstructive pulmonary disease) (5) Pancreatitis (6) IMELDA (acute kidney injury) Comment: HD (7) Infected decubitus ulcer Comment: Diverting colostomy in 07/15/16 for sacral decubitus ulcer. Revision 08/13/[address] Faulkner. (8) History of CVA (cerebrovascular accident) Symptom Scale: (1) Dyspnea Pertinent Non-Medical Issues Psychosocial: Spiritual: Legal: Ethical issues impacting care: Important Contacts Spouse [phone] DCF [phone] of abdomen and pelvis showed evidence of acute pancreatitis and large perileostomy hernia. Long hospital course of encephalopathy, sacral decubitis ulcer requriing diverting colostomy and revision. 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 Has had a very long hospital course. Code Status: Full Code Plan == capacity: does not have capacity to make medical decisions. == Adi care decision maker: (proxy) . I have consulted case management as there is documentation of neglect 09/30. Per case management documented 09/30 " CM CONSULTED TO LOCATE/RESEARCH A PAST COMPLAINT WITH THE DCF AND ALSO CONFIRM DECISION MAKER. CM THE DCF AT [phone] AND SPOKE WITH CESAR ELLINGTON. THE CASE NUMBER WAS [id number]. THE INVESTIGATION IS CLOSED HOWEVER IT REVEALED THAT THE PATIENT WAS SELF NEGLIGENT.THERE WAS NO EVIDENCE TO SUPPORT THAT THE OR ANY OTHER FAMILY MEMBER WAS NEGLIGENT. CM WILL NOTIFY PALLIATIVE CARE OF THE ABOVE CONVERSATION." TEENA AJ RN would be decision maker. == pain and dyspnea- defer to attending. == Goals Spoke with spouse. Pt's spouse expressed strong frustration that certain aspect of the medical care contributed to pt's decline. We went through her course of hospitalization, her diverting colostomy and revision, her complications with icu stay, various infections, PE, her subclinical seizures, acute pancreatitis ...etc. I told him I am worry, given all these factors, it will be hard for her to get well and functional again. We talked about code status and goals of care. He endorses "I want to get her better. Do everything you call." Endorses full code. Appreciative palliative to continue to follow. goals of care remains aggressive. == Palliative care will continue to follow. Time Spent Total Floor Time (mins): 45 Face to Face Time (mins): 35 Attestation To help prompt me to consider important information that might be impacting today's encounter and assessment, information from prior notes written by myself or my colleagues may have been "brought forward" into today's note. My signature on this note, however, is an attestation that I personally performed the exam, history, and/or decision-making noted today, and, unless otherwise indicated, the interactions with patient, family, and staff as well as the review of records all occurred today. I also attest that the listed assessment and stated plan reflect my best clinical judgment today based on the combination of historical information, prior notes, and today's exam/ interactions. When time spent is documented, it refers only to time spent today by the signer, or if indicated, combined time spent today by collaborating physician/nurse practitioner. Teja Espinosa MD Oct 06, 2016 09:40
--- NOTE | 2016-10-06 12:12 | HHI.NPPN ---
Subjective History of Present Illness 61-year-old female with past medical history of cerebellar aneurysm repair, seizure disorder, hypertension, hepatitis C. She was admitted on May 31 with failure to thrive. I was called to see the patient because of acute kidney injury. The patient had creatinine of 1.23 on admission which improved and then she had increase in the creatinine to 1.27 in June and on August 14 and then it went up to 2.0 and for the last week or so it has been going up again. The patient has had a prolonged hospital course with multiple episodes of infection including pneumonia, urinary tract infection, sepsis. Infectious Disease has been following and the patient has been getting antibiotics. Interval History She is awake, does not speak. IVF infusing. Renal function is stable. (Cecy Luo) Objective Data Data 10/05/16 10/06/16 19:00 07:00 Intake Total 1075 ml 1061 ml Output Total 500 ml 3600 ml Balance 575 ml -2539 ml Intake Oral 0 ml IV Total 256 ml 267 ml Tube Feeding 419 ml 794 ml Tube Irrigant 400 ml Output Urine Total 500 ml 1900 ml Stool Total 1700 ml # Bowel Movements 0 Vital Signs Date Time Temp Pulse Resp B/P Pulse Ox O2 Delivery O2 Flow Rate FiO2 10/06/16 08:26 97.3 97 20 152/104 94 10/06/16 04:45 97.3 100 20 152/96 99 10/06/16 00:30 97.5 100 22 155/90 97 10/05/16 22:00 98.9 115 23 150/89 98 10/05/16 19:36 21 10/05/16 16:00 97.5 99 19 157/95 96 (Cecy Luo) -: 10/06/16 0600 10/06/16 0600 Tubes & Lines: Vas-Cath, [place] (Cecy Luo) Physical Exam General Appearance: No Acute Distress, Comfortable, Anxious (Cecy Luo) Eyes Eye Exam: Pupils Equal (Cecy Luo) Throat Throat Exam: Oral Mucosa [place] & Moist (Cecy Luo) Pulmonary Resp Exam: No Distress, Crackles, Rhonchi, Decreased Bases, Diminished Breath Sounds (Cecy Luo) Cardiology CV Exam: Regular, Normal Sinus Rhythm (Cecy Luo) Gastrointestinal/Abdomen GI Exam: Soft, Non-Tender, Bowel Sounds Present, Distended (with colostomy.) ( Cecy Luo) Musculoskeletal MS Exam: Normal Tone (Cecy Luo) Integumentary Skin Exam: Warm, Dry (Cecy Luo) Extremeties Extremities Exam: Moderate Edema, Pitting Edema, Dependent Edema (Cecy Luo) Neurologic Neuro Exam: Alert, Awake (Cecy Luo) Assessment/Plan Assessment Summary: IMELDA/Acute Renal Failure Electrolyte Assessment: Metabolic Acidosis Problem List: (1) IMELDA (acute kidney injury) Plan: She has been off dialysis since 10/02 (treatment 09/29, 09/30, 10/02) renal function is stable, although creatinine had increased past few days she has good urine output no electrolyte concerns at this time we will continue IVF have vascath removed monitor renal panel in am and address any concerns (2) COPD (chronic obstructive pulmonary disease) Plan: monitor pulmonary status she is on oxygen via nasal cannula (3) Edema Plan: monitor fluid volume status (4) History of CVA (cerebrovascular accident) Plan: continue supportive care (5) Essential hypertension Plan: BP acceptable continue medications as ordered (6) Lactic acidosis Plan: corrected (7) Acute respiratory failure Plan: improved (Cecy Luo) Plan patient was seen and examined. Renal function is stable. Non oliguric. Dialysis not indicated. (Reinier Mcmanus MD) Problem Qualifiers (1) COPD (chronic obstructive pulmonary disease): (2) Acute respiratory failure: Qualified Code: J96.00 - Acute respiratory failure, unspecified whether with hypoxia or hypercapnia Cecy Luo Oct 06, 2016 12:12 Reinier Mcmanus MD Oct 06, 2016 16:43
[2016-10-06 15:24] LABS: APTT (PATIENT) 34.3 SEC (24.3-30.1)
--- NOTE | 2016-10-06 19:31 | PQ ---
Physician Query Response Document PATIENT: JIMY MASON : 1955 ADMIT DATE: 05/31/2016 3:10 PM DISCH DATE: RESPONDING PROVIDER #: [email or web address] QUERY TEXT: Cause and Effect Relationship Please clarify in documentation the relationship, if any, between ___UTI and__FOLEY __ Such as: -- Conditions are due to or associated -- Unrelated to each other -- Other, please specify The patient's Clinical Indicators include: May 31, 2016 Indwelling - Single 16 Insertion Time ED INITIAL URINE CULTURE NOT INDICATED 07/04/16 CATH CULTURE E COLI AND PSEUDOMONAS AERUGINOSA Query created by: Sindhu Chester on 09/26/2016 1:45 PM RESPONSE TEXT: Conditions are associated - likely catheter induced UTI Electronically signed by: Darnell rGeco MD 10/06/2016 7:27 PM
--- NOTE | 2016-10-06 23:29 | RADRPT ---
EXAM DATE/TIME: 10/06/2016 23:04 [facility] COMPARISON: CHEST SINGLE AP, October 02, 2016, 2:52. INDICATIONS : Short of breath. MEDICAL HISTORY : Hypertension. Chronic obstructive pulmonary disease. Asthma. SURGICAL HISTORY : None. ENCOUNTER: Subsequent ACUITY: 4 - 6 months PAIN SCORE: Non-responsive. LOCATION: Bilateral chest FINDINGS: The cardiac silhouette is enlarged in transverse diameter. The endotracheal tube has been removed. Bi lateral central venous access remains. There are findings of congestive heart failure with interstiti al and alveolar opacity bilaterally. The findings are similar to the prior exam. Enlarging bilateral effusions are present. CONCLUSION: 1. Cardiomegaly and findings of congestive heart failure. Enlarging bilateral effusions Reed Rico MD on October 06, 2016 at 23:27 Board Certified Radiologist. This report was verified electronically.
[2016-10-07] VITALS (9 sets, daily range): BP systolic 136–160; BP diastolic 49–92; PULSE 98–110; RESP 18–24; TEMP 92–98.1; O2SAT 94–98
[2016-10-07 00:14] LABS: APTT (PATIENT) 35.5 SEC (24.3-30.1)
[2016-10-07 00:18] LABS: BLOOD, URINE NEG (NEG); COMMENT (UR) CATH-CULT NOT IND; CULTURE IF INDICATED CATH CULTURE NOT IND; GLUCOSE,URINE 300 mg/dL (NEG); HYALINE CAST, URINE 1 /lpf (RARE); KETONE, URINE NEG (NEG); MUCUS URINE FEW /lpf (OCC); NITRITE,URINE NEG (NEG); RENAL EPITHELIAL CELLS 1 /hpf; SQUAMOUS EPITHELIAL CELL URINE <1 /hpf (0-5); TRANSITIONAL EPI CELLS, URINE <1 /hpf; URINE COLOR LIGHT-YELLOW (YELLW/STRAW)
[2016-10-07] MEDS: RESP: ALBUTEROL 2.5 MG/IPRATROPIUM 0.5 MG NEB (PRN) INH (00:54)
[2016-10-07] MEDS: FOSPHENYTOIN INJ 100 MGPE in SODIUM CHLORIDE 0.9% INJ 50 ML IV SCH ×4 (01:21→23:57)
[2016-10-07] MEDS ORDERED: FUROSEMIDE 40 MG/4 ML VIAL IV PUSH ONE (01:45)
[2016-10-07] MEDS ORDERED: FUROSEMIDE 20 MG/2 ML VIAL IV PUSH ONE (02:00)
[2016-10-07] MEDS: SODIUM CHLORIDE 0.9% FLUSH 5 ML FLUSH IV FLUSH PRN (02:25)
[2016-10-07] MEDS: MEROPENEM INJ 500 MG in SODIUM CHLORIDE 0.9% INJ 100 ML IV SCH ×3 (03:30→21:04)
[2016-10-07] MEDS: PANTOPRAZOLE SODIUM 40 MG VIAL IV PUSH SCH ×2 (03:30→17:22)
[2016-10-07] MEDS: FREE WATER G-TUBE SCH ×4 (06:00→23:55)
[2016-10-07] MEDS: METOPROLOL TARTRATE 50 MG TAB GT SCH ×3 (06:20→23:54)
[2016-10-07] MEDS: POTASSIUM PHOSPHATE/SODIUM PHOSPHATE 250 MG TAB PO SCH ×4 (06:20→23:54)
[2016-10-07] MEDS: hydrALAZINE HCL 25 MG TAB PO SCH ×3 (06:20→21:06)
[2016-10-07] MEDS: METOCLOPRAMIDE HCL 10 MG/2 ML VIAL IV SCH ×3 (06:21→21:06)
[2016-10-07 06:59] LABS: MEAN CELL VOLUME 84.5 FL (80.0-100.0); MEAN CORPUSCULAR HEMOGLOBIN 27.6 PG (27.0-34.0); MEAN CORPUSCULAR HGB CONC 32.6 % (32.0-36.0); PLATELET COUNT 189 TH/MM3 (150-450); REVIEW FLAG FINAL; WHITE BLOOD COUNT 11.6 TH/MM3 (4.0-11.0)
[2016-10-07 07:05] LABS: APTT (PATIENT) 37.8 SEC (24.3-30.1)
[2016-10-07 07:14] LABS: BICARBONATE 21.8 MEQ/L (21.0-32.0)
[2016-10-07] MEDS: HEPARIN SODIUM - IV 10,000 UNITS/10 ML VIAL IV PRN ×2 (07:40→23:55)
[2016-10-07] MEDS: LACTOBACILLUS ACIDOPHILUS TAB PO SCH ×3 (10:17→17:21)
[2016-10-07] MEDS: POTASSIUM CL 40 MEQ/30 ML LIQ UDC GT SCH (10:17)
[2016-10-07] MEDS: MULTIVITAMIN TAB PO SCH (10:17)
[2016-10-07] MEDS: CALAMINE/PRAMOXINE LOTION 180 ML BTL TOPICAL SCH ×2 (10:18→23:56)
[2016-10-07] MEDS: BACITRACIN TOP OINT 15 GM TUBE TOP SCH ×2 (10:18→23:56)
[2016-10-07] MEDS: BETAMETHASONE DIPROPIONATE 0.05% CREAM 15 GM TOPICAL SCH ×2 (10:18→23:56)
[2016-10-07] MEDS: PETROLATUM 49%/ZINC OXIDE 15% 4 OUNCE TUBE TOPICAL SCH (10:19)
[2016-10-07] MEDS: SODIUM CHLORIDE 0.9% FLUSH 5 ML FLUSH IV FLUSH SCH ×2 (10:19→23:56)
--- NOTE | 2016-10-07 10:28 | HHI.PR ---
Subjective Subjective Notes Resting in bed Non verbal Shakes head no to all questions asked Objective Vitals/I&O Vital Signs Date Time Temp Pulse Resp B/P Pulse Ox O2 Delivery O2 Flow Rate FiO2 10/07/16 08:00 97.8 98 20 136/57 94 10/06/16 20:00 Room Air 10/06/16 11:00 21 10/04/16 20:15 3.00 Labs Laboratory Tests Test 10/06/16 10/06/16 10/07/16 14:40 23:40 06:40 Activated Partial 34.3 35.5 37.8 Thromboplast Time Urine Color LIGHT-YELLOW Urine Turbidity CLEAR Urine pH 8.0 Urine Specific [place] 1.009 Urine Protein 30 Urine Glucose (UA) 300 Urine Ketones NEG Urine Occult Blood NEG Urine Nitrite NEG Urine Bilirubin NEG Urine Urobilinogen LESS THAN 2.0 Urine Leukocyte Esterase NEG Urine RBC 2 Urine WBC 8 Urine Squamous Epithelial <1 Cells Urine Transitional Epithelial <1 Cells Urine Renal Epithelial Cells 1 Urine Hyaline Casts 1 Urine Mucus FEW Microscopic Urinalysis Comment CATH-CULT NOT IND White Blood Count 11.6 Red Blood Count 3.90 Hemoglobin 10.8 Hematocrit 33.0 Mean Corpuscular Volume 84.5 Mean Corpuscular Hemoglobin 27.6 Mean Corpuscular Hemoglobin 32.6 Concent Red Cell Distribution Width 19.0 Platelet Count 189 Mean Platelet Volume 9.2 Sodium Level 143 Potassium Level 5.0 Chloride Level 112 Carbon Dioxide Level 21.8 Anion Gap 9 Blood Urea Nitrogen 37 Creatinine 2.21 Estimat Glomerular Filtration 23 Rate Random Glucose 121 Calcium Level 7.8 Phosphorus Level 3.9 Date/Time Procedure Status Source Growth 10/07/16 01:02 Aerobic Blood Culture Received Blood Peripheral Pending 10/07/16 01:02 Anaerobic Blood Culture Received Blood Peripheral Pending Cardiovascular: Regular Lungs: Clear Abdomen: Other (colostomy in place with stool in bag; applicance in place with no leaking; medial area to appliance with minimal drainage; PEG in place ) Narrative Exam generalized edema A/P Problem List: (1) Status post colostomy (2) Infected decubitus ulcer (3) History of CVA (cerebrovascular accident) (4) COPD (chronic obstructive pulmonary disease) (5) Neurocognitive disorder (6) Essential hypertension Assessment and Plan 61 year old female with large sacral wound; s/p colostomy placement and colostomy revision; now with muliple medication problems including ARF, pulmonary emboli and pancreatitis -Tolerating TF at goal rate -Continue Heparin drip -Colostomy in good working function with stool; appliance in place without stool leaking -Continue routine nursing colostomy care -GS will follow peripherally Attending Note - Dr. Faulkner Wound clean and dry; colostomy functioning. Patient nonverbal, but off vent The exam, history, and the medical decision-making described in the above note were completed with the assistance of the mid-level provider. I reviewed and agree with the findings presented. I attest that I had a [id number] encounter with the patient on the same day, and personally performed and documented my assessment and findings in the medical record. Problem Qualifiers (1) Infected decubitus ulcer: Qualified Code: L89.95 - Infected decubitus ulcer, unstageable (2) COPD (chronic obstructive pulmonary disease): Ruma Orta Oct 07, 2016 10:28 Zechariah Faulkner MD Oct 08, 2016 00:04
--- NOTE | 2016-10-07 11:38 | HHI.HCPN ---
Reason for visit a. To assist with evaluation and management of symptoms including: pain b. To assist medical decision maker(s) with: better understanding of current medical conditions; weighing benefits/burdens of medical treatment options; making medical treatment decisions. Subjective/Interval History Pt on my visit was alert, and able to answer some questions. When ask are you in the state of [place], she is able to say no. She however is easy to fatigued and could not continue further conversations, she just closes her eyes. When ask if she wants to rest, she nods. Sats was 94 -98% Afebriles. Continue to get tube feeding and IVF. Colostomy bag/stooling. Has leukocytosis but trending down. Cr slightly higher today. Remains on heparin drip. She said no to pain. Family/friend interactions Spoke with , he is appreciative of the call. Updated on pt's status and that she was able to communicate a bit more with me today. continue to endorse Full Code and aggressive goals. He continue to state "I want her to get better." Has been reviewed with , the challenges pt faces, and that I worry, that she will not be functional as before the hospitalization, she should survive current hospitalization and be able to be discharge. He maintains aggressive goals. Pt's spouse puts blame at the how previous hospital visits turned patient away and did not admit patient in time until pt's sacral decubitus is worse. Nevertheless, pt's spouse is appreciative of my phone call. Advance Directives Living Will: Never completed Health Care Surrogate: Never completed Durable Power of Lubrication Worker: Never completed Objective Vital Signs Date Time Temp Pulse Resp B/P Pulse Ox O2 Delivery O2 Flow Rate FiO2 10/07/16 08:00 97.8 98 20 136/57 94 10/07/16 04:00 98.1 106 22 160/49 95 10/07/16 02:15 92.0 22 142/ 10/07/16 01:00 98 10/06/16 21:55 98.1 109 28 143/68 98 10/06/16 21:45 97.6 111 20 146/92 95 10/06/16 20:00 Room Air 10/06/16 20:00 97.3 111 20 146/92 95 10/06/16 16:01 97.6 99 22 144/98 97 10/06/16 12:01 97.4 105 24 145/97 96 Intake & Output 10/07/16 10/07/16 07:00 19:00 Intake Total 2522 ml Output Total 1275 ml 300 ml Balance 1247 ml -300 ml IV Total 1487 ml Tube Feeding 526 ml Other 509 ml Output Urine Total 1100 ml 300 ml Stool Total 175 ml # Bowel Movements 0 1 Physical Exam CONSTITUTIONAL/GENERAL: This is an adequately nourished patient,intubated, eyes open, more interative and verbalize some TUBES/LINES/DRAINS:wound vac, right IJ, lu, tube feedings SKIN: No jaundice, rashes, or lesions. Ecchymoses on upper extremities. No wounds seen anteriorly. Skin temperature appropriate. Not diaphoretic. HEAD: Atraumatic. Normocephalic. EYES: Open,. tracking. No scelera icterus. Fundi not examined. ENT: Hearing grossly normal. Nose without bleeding or purulent drainage. NECK: Trachea midline. Supple, nontender. No palpable thyroid enlargement or nodularity. CARDIOVASCULAR: Regular rate and rhythm without murmurs, gallops, or rubs. No JVD. Peripheral pulses symmetric. RESPIRATORY/CHEST: Symmetric, decreased breath sound bilaterally. No wheezes, rales, or rhonchi. GASTROINTESTINAL: Abdomen soft, non-tender, on palpation. BS present. Colostomy bag. GENITOURINARY: Without palpable bladder distension. MUSCULOSKELETAL: edematous upper and lower ext. LYMPHATICS: No palpable cervical or supraclavicular adenopathy. NEUROLOGICAL:Opens eyes, more communicative, Diagnostic Tests Laboratory Laboratory Tests Test 10/05/16 10/06/16 10/06/16 10/06/16 14:40 06:00 14:40 23:40 White Blood Count 18.1 TH/MM3 13.7 TH/MM3 (4.0-11.0) (4.0-11.0) Red Blood Count 4.48 MIL/MM3 4.09 MIL/MM3 (4.00-5.30) (4.00-5.30) Hemoglobin 12.3 GM/DL 11.5 GM/DL (11.6-15.3) (11.6-15.3) Hematocrit 38.0 % 34.2 % (35.0-46.0) (35.0-46.0) Mean Corpuscular Volume 84.8 FL 83.6 FL (80.0-100.0) (80.0-100.0) Mean Corpuscular Hemoglobin 27.5 PG 28.1 PG (27.0-34.0) (27.0-34.0) Mean Corpuscular Hemoglobin 32.4 % 33.6 % Concent (32.0-36.0) (32.0-36.0) Red Cell Distribution Width 18.4 % 18.3 % (11.6-17.2) (11.6-17.2) Platelet Count 192 TH/MM3 188 TH/MM3 (150-450) (150-450) Mean Platelet Volume 9.4 FL 9.2 FL (7.0-11.0) (7.0-11.0) Neutrophils (%) (Auto) 79.4 % 77.5 % (16.0-70.0) (16.0-70.0) Lymphocytes (%) (Auto) 8.4 % 7.6 % (9.0-44.0) (9.0-44.0) Monocytes (%) (Auto) 7.0 % (0.0-8.0) 7.6 % (0.0-8.0) Eosinophils (%) (Auto) 4.8 % (0.0-4.0) 6.6 % (0.0-4.0) Basophils (%) (Auto) 0.4 % (0.0-2.0) 0.7 % (0.0-2.0) Neutrophils # (Auto) 14.4 TH/MM3 10.6 TH/MM3 (1.8-7.7) (1.8-7.7) Lymphocytes # (Auto) 1.5 TH/MM3 1.0 TH/MM3 (1.0-4.8) (1.0-4.8) Monocytes # (Auto) 1.3 TH/MM3 1.0 TH/MM3 (0-0.9) (0-0.9) Eosinophils # (Auto) 0.9 TH/MM3 0.9 TH/MM3 (0-0.4) (0-0.4) Basophils # (Auto) 0.1 TH/MM3 0.1 TH/MM3 (0-0.2) (0-0.2) CBC Comment AUTO DIFF AUTO DIFF Differential Total Cells 100 100 Counted Neutrophils % (Manual) 74 % (16-70) 79 % (16-70) Band Neutrophils % 12 % (0-6) 6 % (0-6) Lymphocytes % 2 % (9-44) 4 % (9-44) Monocytes % 3 % (0-8) 6 % (0-8) Eosinophils % 1 % (0-4) 1 % (0-4) Neutrophils # (Manual) 17.0 TH/MM3 11.9 TH/MM3 (1.8-7.7) (1.8-7.7) Metamyelocytes 1 % (0-1) Myelocytes 7 % (0-0) 2 % (0-0) Nucleated Red Blood Cells 1 /100 WBC (0-0) Differential Comment FINAL DIFF FINAL DIFF MANUAL MANUAL Toxic Granulation 1+ (NORMAL) Toxic Vacuolation PRESENT (NONE SEEN) Platelet Estimate NORMAL NORMAL (NORMAL) (NORMAL) Platelet Morphology Comment NORMAL NORMAL (NORMAL) (NORMAL) Red Cell Morphology Comment NORMAL NORMAL (NORMAL) (NORMAL) Activated Partial 39.2 SEC 37.4 SEC 34.3 SEC 35.5 SEC Thromboplast Time (24.3-30.1) (24.3-30.1) (24.3-30.1) (24.3-30.1) Sodium Level 140 MEQ/L 141 MEQ/L (136-145) (136-145) Potassium Level 5.0 MEQ/L 4.4 MEQ/L (3.5-5.1) (3.5-5.1) Chloride Level 107 MEQ/L 109 MEQ/L (98-107) (98-107) Carbon Dioxide Level 18.1 MEQ/L 22.4 MEQ/L (21.0-32.0) (21.0-32.0) Anion Gap 15 MEQ/L (5-15) 10 MEQ/L (5-15) Blood Urea Nitrogen 26 MG/DL (7-18) 32 MG/DL (7-18) Creatinine 2.15 MG/DL 2.15 MG/DL (0.50-1.00) (0.50-1.00) Estimat Glomerular Filtration 23 ML/MIN (>89) 23 ML/MIN (>89) Rate Random Glucose 113 MG/DL 126 MG/DL (74-106) (74-106) Calcium Level 8.2 MG/DL 7.8 MG/DL (8.5-10.1) (8.5-10.1) Total Bilirubin 0.5 MG/DL 0.5 MG/DL (0.2-1.0) (0.2-1.0) Aspartate Amino Transf 20 U/L (15-37) 23 U/L (15-37) (AST/SGOT) Alanine Aminotransferase 8 U/L (10-53) 10 U/L (10-53) (ALT/SGPT) Alkaline Phosphatase 179 U/L 202 U/L (45-117) (45-117) Total Protein 6.7 GM/DL 6.1 GM/DL (6.4-8.2) (6.4-8.2) Albumin 2.5 GM/DL 2.2 GM/DL (3.4-5.0) (3.4-5.0) Basophils % 2 % (0-2) Phosphorus Level 3.1 MG/DL (2.5-4.9) Magnesium Level 1.5 MG/DL (1.5-2.5) Urine Color LIGHT-YELLOW (YELLW/STRAW) Urine Turbidity CLEAR (CLEAR) Urine pH 8.0 (5.0-8.5) Urine Specific [place] 1.009 (1.002-1.035) Urine Protein 30 mg/dL (NEG-TRACE) Urine Glucose (UA) 300 mg/dL (NEG) Urine Ketones NEG mg/dL (NEG) Urine Occult Blood NEG (NEG) Urine Nitrite NEG (NEG) Urine Bilirubin NEG (NEG) Urine Urobilinogen LESS THAN 2.0 MG/DL (LESS THAN 2.0) Urine Leukocyte Esterase NEG (NEG) Urine RBC 2 /hpf (0-3) Urine WBC 8 /hpf (0-5) Urine Squamous Epithelial <1 /hpf (0-5) Cells Urine Transitional Epithelial <1 /hpf (NONE) Cells Urine Renal Epithelial Cells 1 /hpf (NONE) Urine Hyaline Casts 1 /lpf (RARE) Urine Mucus FEW /lpf (OCC) Microscopic Urinalysis Comment CATH-CULT NOT IND Test 10/07/16 06:40 White Blood Count 11.6 TH/MM3 (4.0-11.0) Red Blood Count 3.90 MIL/MM3 (4.00-5.30) Hemoglobin 10.8 GM/DL (11.6-15.3) Hematocrit 33.0 % (35.0-46.0) Mean Corpuscular Volume 84.5 FL (80.0-100.0) Mean Corpuscular Hemoglobin 27.6 PG (27.0-34.0) Mean Corpuscular Hemoglobin 32.6 % Concent (32.0-36.0) Red Cell Distribution Width 19.0 % (11.6-17.2) Platelet Count 189 TH/MM3 (150-450) Mean Platelet Volume 9.2 FL (7.0-11.0) Activated Partial 37.8 SEC Thromboplast Time (24.3-30.1) Sodium Level 143 MEQ/L (136-145) Potassium Level 5.0 MEQ/L (3.5-5.1) Chloride Level 112 MEQ/L (98-107) Carbon Dioxide Level 21.8 MEQ/L (21.0-32.0) Anion Gap 9 MEQ/L (5-15) Blood Urea Nitrogen 37 MG/DL (7-18) Creatinine 2.21 MG/DL (0.50-1.00) Estimat Glomerular Filtration 23 ML/MIN (>89) Rate Random Glucose 121 MG/DL (74-106) Calcium Level 7.8 MG/DL (8.5-10.1) Phosphorus Level 3.9 MG/DL (2.5-4.9) Result Diagram: 10/07/16 0640 10/07/16 0640 Microbiology Microbiology Date/Time Procedure Status Source Growth 10/06/16 23:40 Aerobic Blood Culture Received Blood Peripheral Pending 10/06/16 23:40 Anaerobic Blood Culture Received Blood Peripheral Pending 10/07/16 01:02 Aerobic Blood Culture Received Blood Peripheral Pending 10/07/16 01:02 Anaerobic Blood Culture Received Blood Peripheral Pending Imaging Last Impressions Chest X-Ray 10/06/16 0000 Signed Impressions: Service Date/Time: Thursday, October 06, 2016 23:04 - CONCLUSION: 1. Cardiomegaly and findings of congestive heart failure. Enlarging bilateral effusions Reed Rico MD Gastrostomy Tube Change 10/01/16 0000 Signed Impressions: Service Date/Time: Saturday, October 01, 2016 13:54 - CONCLUSION: 1. Uncomplicated gastrojejunostomy tube placement Reed Rico MD Head CT 09/29/16 0000 Signed Impressions: Service Date/Time: Thursday, September 29, 2016 12:54 - CONCLUSION: 1. No significant change compared to 09/25/16. 2. Extensive bilateral encephalomalacia (right worse than left) predominantly within the frontal lobes and parietal occipital lobes as well as the right temporal lobe. 3. Extensive periventricular and subcortical white matter small vessel ischemic changes bilaterally. 4. Scattered old lacunar infarcts within the bilateral basal ganglia. 5. Stable ventriculomegaly. 6. No acute hemorrhage, midline shift , or extraaxial fluid collections. Ernie Mathis MD Abdomen/Pelvis CT 09/29/16 0000 Signed Impressions: Service Date/Time: Thursday, September 29, 2016 13:01 - CONCLUSION: 1. Large hernia adjacent to the colostomy without abscess. 2. There is no free air. There is no evidence for an obstruction. 3. There is increasing induration around the pancreas. Correlation with laboratory values is suggested. Vinay Avalos MD FACR Upper Extremity Ultrasound 09/26/16 0000 Signed Impressions: Service Date/Time: Monday, September 26, 2016 20:17 - CONCLUSION: No DVT or superficial venous thrombosis is identified within either upper extremity. Please note that the left cephalic vein is not visualized. Aidan Churchill MD CT Angiography 09/26/16 0000 Signed Impressions: Service Date/Time: Monday, September 26, 2016 15:12 - CONCLUSION: 1. Several small pulmonary emboli in the right upper lobe. 2. Multiple bilateral pulmonary parenchymal nodules. Both neoplastic and inflammatory etiologies are in the differential diagnosis. 3. Mildly prominent right hilar lymph node, likely reactive. 4. Bilateral lower lobe atelectasis and small left pleural effusion. 5. Possible mass in the medial gastric fundus. Rony Espinoza MD Lower Extremity Ultrasound 09/25/16 1622 Signed Impressions: Service Date/Time: September 17:26 - CONCLUSION: No DVT of the left lower extremity. Aidan Felipe MD [facility] 09/22/16 1702 Signed Impressions: Service Date/Time: Thursday, September 22, 2016 15:50 - CONCLUSION: 1. Unsuccessful port removal. Reed Rico MD Abdomen X-Ray 1/24/17 0000 Signed Impressions: Service Date/Time: Friday, September 16, 2016 16:55 - CONCLUSION: G-tube in place in the body the stomach properly positioned David Rivera MD Assessment and Plan Disease Oriented Problem List: (1) Acute respiratory failure Comment: PE, pulmonary nodules, HCAP, worsening consolidation of the left. (2) Pulmonary embolism (3) Severe sepsis (4) COPD (chronic obstructive pulmonary disease) (5) Pancreatitis (6) IMELDA (acute kidney injury) Comment: HD (7) Infected decubitus ulcer Comment: Diverting colostomy in 07/15/16 for sacral decubitus ulcer. Revision 08/13/[address] Faulkner. (8) History of CVA (cerebrovascular accident) Symptom Scale: (1) Dyspnea Pertinent Non-Medical Issues Psychosocial: Spiritual: Legal: Ethical issues impacting care: Important Contacts Spouse [phone] DCF [phone] of abdomen and pelvis showed evidence of acute pancreatitis and large perileostomy hernia. Long hospital course of encephalopathy, sacral decubitis ulcer requriing diverting colostomy and revision. Complicated by sepsis, encephlopath, now sepsis, multiorgan failure, Acute hypoxemic respiratory failure, Right upper lobe pulmonary embolism, Multiple bilateral pulmonary nodules, Left lower lobe pneumonia/effusion/HCAP advertising associate prognosis appears poor. Has had a very long hospital course.. Code Status: Full Code Plan == capacity: does not have capacity to make medical decisions. == Adi care decision maker: (proxy) . I have consulted case management as there is documentation of neglect 09/30. Per case management documented 09/30 " CM CONSULTED TO LOCATE/RESEARCH A PAST COMPLAINT WITH THE DCF AND ALSO CONFIRM DECISION MAKER. CM THE DCF AT [phone] AND SPOKE WITH CESAR ELLINGTON. THE CASE NUMBER WAS [id number]. THE INVESTIGATION IS CLOSED HOWEVER IT REVEALED THAT THE PATIENT WAS SELF NEGLIGENT.THERE WAS NO EVIDENCE TO SUPPORT THAT THE OR ANY OTHER FAMILY MEMBER WAS NEGLIGENT. CM WILL NOTIFY PALLIATIVE CARE OF THE ABOVE CONVERSATION." TEENA AJ RN would be decision maker. == pain - denied pain today. == Goals Spoke with , he is appreciative of the call today (10/07). Updated on pt's status and that she was able to communicate a bit more with me today. continue to endorse Full Code and aggressive goals. He continue to state "I want her to get better." Has been reviewed with , the challenges pt faces, and that I worry, that she will not be functional as before the hospitalization, she should survive current hospitalization and be able to be discharge. He maintains aggressive goals. Pt's spouse perception; he expressed strong feelings that certain aspects of her medical care contributed to patient's decline. Nevertheless, pt's spouse is appreciative of my phone call. goals of care remains aggressive. == Palliative care will continue to follow. Time Spent Total Floor Time (mins): 45 Face to Face Time (mins): 25 Attestation To help prompt me to consider important information that might be impacting today's encounter and assessment, information from prior notes written by myself or my colleagues may have been "brought forward" into today's note. My signature on this note, however, is an attestation that I personally performed the exam, history, and/or decision-making noted today, and, unless otherwise indicated, the interactions with patient, family, and staff as well as the review of records all occurred today. I also attest that the listed assessment and stated plan reflect my best clinical judgment today based on the combination of historical information, prior notes, and today's exam/ interactions. When time spent is documented, it refers only to time spent today by the signer, or if indicated, combined time spent today by collaborating physician/nurse practitioner. Teja Espinosa MD Oct 07, 2016 11:38
--- NOTE | 2016-10-07 12:01 | HHI.NPPN ---
Subjective Complaints: Confused General Problems: Edema History of Present Illness 61-year-old female with past medical history of cerebellar aneurysm repair, seizure disorder, hypertension, hepatitis C. She was admitted on May 31 with failure to thrive. I was called to see the patient because of acute kidney injury. The patient had creatinine of 1.23 on admission which improved and then she had increase in the creatinine to 1.27 in June and on August 14 and then it went up to 2.0 and for the last week or so it has been going up again. The patient has had a prolonged hospital course with multiple episodes of infection including pneumonia, urinary tract infection, sepsis. Infectious Disease has been following and the patient has been getting antibiotics. Interval History She is awake, does not speak. Very dry mucous membranes. Tube feeding infusing. No acute nursing concerns. (Cecy Luo) Objective Data Data 10/06/16 10/07/16 19:00 07:00 Intake Total 2522 ml Output Total 850 ml 1275 ml Balance -850 ml 1247 ml IV Total 1487 ml Tube Feeding 526 ml Other 509 ml Output Urine Total 850 ml 1100 ml Stool Total 175 ml # Bowel Movements 0 0 Vital Signs Date Time Temp Pulse Resp B/P Pulse Ox O2 Delivery O2 Flow Rate FiO2 10/07/16 08:00 97.8 98 20 136/57 94 10/07/16 04:00 98.1 106 22 160/49 95 10/07/16 02:15 92.0 22 142/ 10/07/16 01:00 98 10/06/16 21:55 98.1 109 28 143/68 98 10/06/16 21:45 97.6 111 20 146/92 95 10/06/16 20:00 Room Air 10/06/16 20:00 97.3 111 20 146/92 95 10/06/16 16:01 97.6 99 22 144/98 97 10/06/16 12:01 97.4 105 24 145/97 96 (Cecy Luo) -: 10/07/16 0640 10/07/16 0640 Microbiology 10/06/16 Aerobic Blood Culture, Received Pending 10/06/16 Anaerobic Blood Culture, Received Pending 10/07/16 Aerobic Blood Culture, Received Pending 10/07/16 Anaerobic Blood Culture, Received Pending Tubes & Lines: Vas-Cath, [facility] Tubes & Lines Comment PEG, colostomy (Cecy Luo) Physical Exam General Appearance: No Acute Distress, Comfortable, Anxious (Cecy Luo) Eyes Eye Exam: Pupils Equal (Cecy Luo) Throat Throat Exam: Oral Mucosa [place] & Moist (Cecy Luo) Pulmonary Resp Exam: No Distress, Crackles, Rhonchi, Decreased Bases, Diminished Breath Sounds (Cecy Luo) Cardiology CV Exam: Regular, Normal Sinus Rhythm (Cecy Luo) Gastrointestinal/Abdomen GI Exam: Soft, Non-Tender, Bowel Sounds Present, Positive Bowel Movement, Distended (with colostomy.) (Cecy Luo) Musculoskeletal MS Exam: Joints Intact, Normal Tone (Cecy Luo) Integumentary Skin Exam: Warm, Dry (Cecy Luo) Extremeties Extremities Exam: Pedal Pulses Palpable, Moderate Edema, Pitting Edema, Dependent Edema (Cecy Luo) Neurologic Neuro Exam: Alert, Awake (Cecy Luo) Assessment/Plan Assessment Summary: IMELDA/Acute Renal Failure Electrolyte Assessment: Metabolic Acidosis Problem List: (1) IMELDA (acute kidney injury) Plan: She has been off dialysis since 10/02 (treatment 09/29, 09/30, 10/02) renal function is stable, although creatinine had increased since stopping vascath is in place, will leave it in place for the time being she has good urine output no electrolyte concerns off IVF, will increase tube feeding in water have vascath removed monitor renal panel in am and address any concerns (2) COPD (chronic obstructive pulmonary disease) Plan: monitor pulmonary status she is on oxygen via nasal cannula (3) Edema Plan: monitor fluid volume status (4) History of CVA (cerebrovascular accident) Plan: continue supportive care (5) Essential hypertension Plan: BP acceptable continue medications as ordered (6) Lactic acidosis Plan: corrected (7) Acute respiratory failure Plan: improved (Cecy Luo) Problem List: (1) IMELDA (acute kidney injury) Plan: She has been off dialysis since 10/02 (treatment 09/29, 09/30, 10/02) renal function is stable, although creatinine had increased since stopping vascath is in place, will leave it in place for the time being she has good urine output no electrolyte concerns off IVF, will increase water administration via tube feeding. have vascath removed monitor renal panel in am and address any concerns (2) COPD (chronic obstructive pulmonary disease) Plan: monitor pulmonary status she is on oxygen via nasal cannula (3) Edema Plan: monitor fluid volume status (4) History of CVA (cerebrovascular accident) Plan: continue supportive care (5) Essential hypertension Plan: BP acceptable continue medications as ordered (6) Lactic acidosis Plan: corrected (7) Acute respiratory failure Plan: improved Plan patient was seen and examined. GFR has declined. No immediate need for dialysis. (Reinier Mcmanus MD) Problem Qualifiers (1) COPD (chronic obstructive pulmonary disease): (2) Acute respiratory failure: Qualified Code: J96.00 - Acute respiratory failure, unspecified whether with hypoxia or hypercapnia Cecy Luo Oct 07, 2016 12:01 Reinier Mcmanus MD Oct 07, 2016 17:28
[2016-10-07 16:05] LABS: APTT (PATIENT) 41.1 SEC (24.3-30.1)
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
[2016-10-07 22:57] LABS: APTT (PATIENT) 38.7 SEC (24.3-30.1)
[2016-10-07] MEDS: HEPARIN-D5W INJ 250 ML IV SCH (23:58)
[2016-10-08 03:04] VITALS: BP 133/95; PULSE 97; RESP 24; TEMP 97.5; O2SAT 92
[2016-10-08] MEDS: PANTOPRAZOLE SODIUM 40 MG VIAL IV PUSH SCH ×2 (03:53→15:04)
[2016-10-08] MEDS: MEROPENEM INJ 500 MG in SODIUM CHLORIDE 0.9% INJ 100 ML IV SCH ×3 (04:00→20:09)
[2016-10-08] MEDS: FREE WATER G-TUBE SCH ×3 (06:00→18:49)
[2016-10-08] MEDS: POTASSIUM PHOSPHATE/SODIUM PHOSPHATE 250 MG TAB PO SCH ×3 (06:20→18:50)
[2016-10-08] MEDS: METOPROLOL TARTRATE 50 MG TAB GT SCH ×2 (06:20→15:04)
[2016-10-08] MEDS: hydrALAZINE HCL 50 MG TAB PO SCH ×3 (06:20→22:18)
[2016-10-08] MEDS: METOCLOPRAMIDE HCL 10 MG/2 ML VIAL IV SCH ×3 (06:20→22:18)
[2016-10-08 07:11] LABS: HEMATOCRIT 29.7 % (35.0-46.0); MEAN CORPUSCULAR HEMOGLOBIN 27.6 PG (27.0-34.0); MEAN CORPUSCULAR HGB CONC 32.5 % (32.0-36.0); PLATELET COUNT 175 TH/MM3 (150-450); RED BLOOD COUNT 3.49 MIL/MM3 (4.00-5.30); RED CELL DISTRIBUTION WIDTH 18.8 % (11.6-17.2); REVIEW FLAG FINAL; WHITE BLOOD COUNT 9.6 TH/MM3 (4.0-11.0)
[2016-10-08 07:30] LABS: BICARBONATE 20.7 MEQ/L (21.0-32.0); POTASSIUM 5.3 MEQ/L (3.5-5.1)
[2016-10-08 08:00] VITALS: BP 136/84; PULSE 102; RESP 22; TEMP 97.3; O2SAT 95
[2016-10-08] MEDS ORDERED: INSULIN HUMAN REGULAR 1,000 UNITS/10 ML VIAL IV PUSH ONE (09:15)
[2016-10-08] MEDS ORDERED: DEXTROSE 50% IN WATER 50 ML SYRINGE IV ONE (09:15)
--- NOTE | 2016-10-08 09:15 | PQ ---
Physician Query Response Document PATIENT: JIMY MASON : 1955 ADMIT DATE: 05/31/2016 3:10 PM DISCH DATE: RESPONDING PROVIDER #: [email or web address] QUERY TEXT: Cause and Effect Relationship Please clarify in documentation the relationship, if any, between ____HIV and SEPSIS Such as: -- Conditions are due to or associated -- Unrelated to each other -- Other, please specify The patient's Clinical Indicators include: May 31, 2016 17:36 admitted with SEPSIS SEVERE LEUKOCYTOSIS BANDEMIA cellulits LLE and Decubitus ulcers and Shannon inte rtigo initial suspected of having HIV status 06/01 UA show SHANNON 06/01 labs DONE CD 4 count 51 absolute CD4 210 Query created by: Sindhu Chester on 09/26/2016 1:49 PM RESPONSE TEXT: Unrelated to each other. CD4 count was sent but as per Dr Bustillo's notes consent for HIV could not be obtained. Source of sepsis seems to be decubitus ulcers. Electronically signed by: Darnell Greco MD 10/08/2016 9:11 AM
[2016-10-08] MEDS: SODIUM CHLORIDE 0.9% FLUSH 5 ML FLUSH IV FLUSH SCH ×2 (09:35→20:12)
[2016-10-08] MEDS: LACTOBACILLUS ACIDOPHILUS TAB PO SCH ×3 (09:35→18:50)
[2016-10-08] MEDS: MULTIVITAMIN TAB PO SCH (09:35)
[2016-10-08] MEDS: FOSPHENYTOIN INJ 100 MGPE in SODIUM CHLORIDE 0.9% INJ 50 ML IV SCH ×2 (10:06→18:49)
[2016-10-08 12:00] VITALS: BP 153/96; PULSE 116; RESP 22; TEMP 98.1; O2SAT 95
[2016-10-08] MEDS: CALAMINE/PRAMOXINE LOTION 180 ML BTL TOPICAL SCH ×2 (13:11→20:12)
[2016-10-08] MEDS: PETROLATUM 49%/ZINC OXIDE 15% 4 OUNCE TUBE TOPICAL SCH (13:12)
[2016-10-08] MEDS: BACITRACIN TOP OINT 15 GM TUBE TOP SCH ×2 (13:12→20:14)
[2016-10-08] MEDS: BETAMETHASONE DIPROPIONATE 0.05% CREAM 15 GM TOPICAL SCH ×2 (13:12→20:13)
--- NOTE | 2016-10-08 13:17 | HHI.NPPN ---
Subjective Complaints: Confused General Problems: Edema History of Present Illness 61-year-old female with past medical history of cerebellar aneurysm repair, seizure disorder, hypertension, hepatitis C. She was admitted on May 31 with failure to thrive. I was called to see the patient because of acute kidney injury. The patient had creatinine of 1.23 on admission which improved and then she had increase in the creatinine to 1.27 in June and on August 14 and then it went up to 2.0 and for the last week or so it has been going up again. The patient has had a prolonged hospital course with multiple episodes of infection including pneumonia, urinary tract infection, sepsis. Infectious Disease has been following and the patient has been getting antibiotics. Interval History Renal function is stable. She appears to have thrush. Nonverbal. (Cecy Luo) Review of Systems General General Remarks difficult to evaluate due to mental status (Cecy Luo) Objective Data Data 10/07/16 10/08/16 19:00 07:00 Intake Total 800 ml 1626 ml Output Total 2800 ml 2125 ml Balance -2000 ml -499 ml Intake Oral 0 ml IV Total 300 ml 358 ml Tube Feeding 500 ml 797 ml Other 471 ml Output Urine Total 1900 ml 1425 ml Stool Total 900 ml 700 ml # Bowel Movements 1 0 Vital Signs Date Time Temp Pulse Resp B/P Pulse Ox O2 Delivery O2 Flow Rate FiO2 10/08/16 08:00 97.3 102 22 136/84 95 10/08/16 03:04 97.5 97 24 133/95 92 10/07/16 23:17 97.8 106 24 156/85 95 10/07/16 19:44 97.8 101 22 153/92 95 10/07/16 17:37 94 21 10/07/16 16:00 97.4 110 18 153/86 94 (Cecy Luo) -: 10/08/16 0640 10/08/16 0640 Imaging Last 72 hours Impressions Chest X-Ray 10/06/16 0000 Signed Impressions: Service Date/Time: Thursday, October 06, 2016 23:04 - CONCLUSION: 1. Cardiomegaly and findings of congestive heart failure. Enlarging bilateral effusions Reed Rico MD Tubes & Lines: Vas-Cath, [facility] Tubes & Lines Comment PEG, colostomy (Cecy Luo) Physical Exam General Appearance: No Acute Distress, Comfortable Appearance Remarks awake, non verbal (Cecy Luo) Eyes Eye Exam: Pupils Equal (Cecy Luo) Throat Throat Exam: Oral Mucosa [place] & Moist Throat Remarks white exudate on tongue, oropharynx (Cecy Luo) Pulmonary Resp Exam: No Distress, Crackles, Rhonchi, Decreased Bases, Diminished Breath Sounds (Cecy Luo) Cardiology CV Exam: Regular, Normal Sinus Rhythm (Cecy Luo) Gastrointestinal/Abdomen GI Exam: Soft, Non-Tender, Bowel Sounds Present, Positive Bowel Movement, Distended (with colostomy.) (Cecy Luo) Musculoskeletal MS Exam: Joints Intact, Normal Tone (Cecy Luo) Integumentary Skin Exam: Warm, Dry (Cecy Luo) Extremeties Extremities Exam: Pedal Pulses Palpable, Moderate Edema, Pitting Edema, Dependent Edema (Cecy Luo) Neurologic Neuro Exam: Alert, Awake (Cecy Luo) Assessment/Plan Assessment Summary: IMELDA/Acute Renal Failure Electrolyte Assessment: Metabolic Acidosis Problem List: (1) IMELDA (acute kidney injury) Plan: She has been off dialysis since 10/02 (treatment 09/29, 09/30, 10/02) renal function stabilized overnight C02 slightly low, follow up labs in am vascath remains in place she has good urine output, extensive output from colostomy K 5.3, repeat labs in am off IVF, on free water with tube feeding, she is on Nephro monitor renal panel in am and address any concerns (2) COPD (chronic obstructive pulmonary disease) Plan: monitor pulmonary status she is on oxygen via nasal cannula (3) Edema Plan: monitor fluid volume status (4) History of CVA (cerebrovascular accident) Plan: continue supportive care needs assistance with oral care (5) Essential hypertension Plan: BP acceptable continue medications as ordered (6) Lactic acidosis Plan: corrected (7) Acute respiratory failure Plan: improved (Cecy Luo) Plan patient was seen and examined. Renal function is stable, no need for dialysis. Mild hyperkalemia is noted, I have changed TF to Nepro, and stopped potassium supplementation. (Reinier Mcmanus MD) Problem Qualifiers (1) COPD (chronic obstructive pulmonary disease): (2) Acute respiratory failure: Qualified Code: J96.00 - Acute respiratory failure, unspecified whether with hypoxia or hypercapnia Cecy Luo Oct 08, 2016 13:17 Reinier Mcmanus MD Oct 08, 2016 22:05
[2016-10-08 14:07] LABS: APTT (PATIENT) 36.8 SEC (24.3-30.1)
[2016-10-08 14:28] VITALS: BP 163/95; PULSE 104; RESP 20; TEMP 97.3; O2SAT 97
[2016-10-08 16:00] VITALS: BP 141/93; PULSE 114; RESP 22; TEMP 98.8; O2SAT 96
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
[2016-10-08 21:16] LABS: POTASSIUM 5.1 MEQ/L (3.5-5.1)
--- NOTE | 2016-10-08 22:35 | HHI.IDPN ---
Subjective Subjective Remarks delayed entry; pt seen earlier today pt is on the floor extubated doing well afebrile + talking Antibiotics Meropenem IV Lines Line sites with no e./o infection Past Medical History Reviewed Allergies: Coded Allergies: MRI PRECAUTION (Verified Adverse Reaction, Severe, ANEURYSM CLIP PER DR. RIVERADAUIJ-QH-SVV-09/08/09, 05/31/16) *MDRO Multi-Drug Resistant Organism (Verified Adverse Reaction, Unknown, MRSA, 08/18/16) MRSA (sputum) - 10/2004 & 11/2004 ESBL Klebsiella Pneumoniae ([facility] wash-08/14/16) Objective . Vital Signs Date Time Temp Pulse Resp B/P Pulse Ox O2 Delivery O2 Flow Rate FiO2 10/08/16 18:38 21 10/08/16 16:00 98.8 114 22 141/93 96 10/08/16 12:00 98.1 116 22 153/96 95 10/08/16 12:00 95 10/08/16 08:00 97.3 102 22 136/84 95 10/08/16 03:04 97.5 97 24 133/95 92 10/07/16 23:17 97.8 106 24 156/85 95 10/07/16 10/07/16 10/08/16 15:00 23:00 07:00 Intake Total 800 ml 1626 ml Output Total 1550 ml 2325 ml 1050 ml Balance -1550 ml -1525 ml 576 ml Intake Oral 0 ml 0 ml IV Total 300 ml 358 ml Tube Feeding 500 ml 797 ml Other 471 ml Output Urine Total 1100 ml 1375 ml 850 ml Stool Total 450 ml 950 ml 200 ml # Bowel Movements 1 0 . Laboratory Tests Test 10/07/16 10/08/16 06:40 06:40 White Blood Count 11.6 TH/MM3 9.6 TH/MM3 Red Blood Count 3.90 MIL/MM3 3.49 MIL/MM3 Hemoglobin 10.8 GM/DL 9.6 GM/DL Hematocrit 33.0 % 29.7 % Mean Corpuscular Volume 84.5 FL 85.0 FL Mean Corpuscular Hemoglobin 27.6 PG 27.6 PG Mean Corpuscular Hemoglobin 32.6 % 32.5 % Concent Red Cell Distribution Width 19.0 % 18.8 % Platelet Count 189 TH/MM3 175 TH/MM3 Mean Platelet Volume 9.2 FL 9.1 FL Laboratory Tests Test 10/07/16 10/08/16 10/08/16 06:40 06:40 20:15 Sodium Level 143 MEQ/L 142 MEQ/L 141 MEQ/L Potassium Level 5.0 MEQ/L 5.3 MEQ/L 5.1 MEQ/L Chloride Level 112 MEQ/L 113 MEQ/L 111 MEQ/L Carbon Dioxide Level 21.8 MEQ/L 20.7 MEQ/L 21.0 MEQ/L Anion Gap 9 MEQ/L 8 MEQ/L 9 MEQ/L Blood Urea Nitrogen 37 MG/DL 39 MG/DL 38 MG/DL Creatinine 2.21 MG/DL 2.10 MG/DL 2.10 MG/DL Estimat Glomerular Filtration 23 ML/MIN 24 ML/MIN 24 ML/MIN Rate Random Glucose 121 MG/DL 113 MG/DL 117 MG/DL Calcium Level 7.8 MG/DL 7.8 MG/DL 8.0 MG/DL Phosphorus Level 3.9 MG/DL 4.3 MG/DL Microbiology Date/Time Procedure Status Source Growth 10/06/16 23:40 Aerobic Blood Culture - Preliminary Resulted Blood Peripheral NO GROWTH IN 1 DAY 10/06/16 23:40 Anaerobic Blood Culture - Preliminary Resulted Blood Peripheral NO GROWTH IN 1 DAY 10/07/16 01:02 Aerobic Blood Culture - Preliminary Resulted Blood Peripheral NO GROWTH IN 1 DAY 10/07/16 01:02 Anaerobic Blood Culture - Preliminary Resulted Blood Peripheral NO GROWTH IN 1 DAY Imaging Last Impressions Chest X-Ray 10/06/16 0000 Signed Impressions: Service Date/Time: Thursday, October 06, 2016 23:04 - CONCLUSION: 1. Cardiomegaly and findings of congestive heart failure. Enlarging bilateral effusions Reed Rico MD Gastrostomy Tube Change 10/01/16 0000 Signed Impressions: Service Date/Time: Saturday, October 01, 2016 13:54 - CONCLUSION: 1. Uncomplicated gastrojejunostomy tube placement Reed Rico MD Head CT 09/29/16 0000 Signed Impressions: Service Date/Time: Thursday, September 29, 2016 12:54 - CONCLUSION: 1. No significant change compared to 09/25/16. 2. Extensive bilateral encephalomalacia (right worse than left) predominantly within the frontal lobes and parietal occipital lobes as well as the right temporal lobe. 3. Extensive periventricular and subcortical white matter small vessel ischemic changes bilaterally. 4. Scattered old lacunar infarcts within the bilateral basal ganglia. 5. Stable ventriculomegaly. 6. No acute hemorrhage, midline shift , or extraaxial fluid collections. Ernie Mathis MD Abdomen/Pelvis CT 09/29/16 0000 Signed Impressions: Service Date/Time: Thursday, September 29, 2016 13:01 - CONCLUSION: 1. Large hernia adjacent to the colostomy without abscess. 2. There is no free air. There is no evidence for an obstruction. 3. There is increasing induration around the pancreas. Correlation with laboratory values is suggested. Vinay Avalos MD FACR Upper Extremity Ultrasound 09/26/16 0000 Signed Impressions: Service Date/Time: Monday, September 26, 2016 20:17 - CONCLUSION: No DVT or superficial venous thrombosis is identified within either upper extremity. Please note that the left cephalic vein is not visualized. Aidan Churchill MD CT Angiography 09/26/16 0000 Signed Impressions: Service Date/Time: Monday, September 26, 2016 15:12 - CONCLUSION: 1. Several small pulmonary emboli in the right upper lobe. 2. Multiple bilateral pulmonary parenchymal nodules. Both neoplastic and inflammatory etiologies are in the differential diagnosis. 3. Mildly prominent right hilar lymph node, likely reactive. 4. Bilateral lower lobe atelectasis and small left pleural effusion. 5. Possible mass in the medial gastric fundus. Rony Espinoza MD Lower Extremity Ultrasound 09/25/16 1622 Signed Impressions: Service Date/Time: September 17:26 - CONCLUSION: No DVT of the left lower extremity. Aidan Felipe MD [facility] 09/22/16 1702 Signed Impressions: Service Date/Time: Thursday, September 22, 2016 15:50 - CONCLUSION: 1. Unsuccessful port removal. Reed Rico MD Abdomen X-Ray 09/16/16 0000 Signed Impressions: Service Date/Time: Friday, September 16, 2016 16:55 - CONCLUSION: G-tube in place in the body the stomach properly positioned David Rivera MD Physical Exam GENERAL: NAD SKIN: No rash. + VAC in place over R buttock with serosang dc EYES: Pupils equal and round and reactive. ENT: moist mucosae Oral mucosae moist CARDIOVASCULAR: HS audible. No meumurs RESPIRATORY/CHEST: Decreased BS at bases bilaterally. Clear GASTROINTESTINAL: Abdomen soft, moderately distended, not tender. Colostomy site sealed well. Small amount of blood in stoma Some dependent edema and redness around it. MUSCULOSKELETAL: Extremities with no joint effusions. NEUROLOGICAL: awake alert, communicates 1 -2 words intermittently Line sites with no e/o infection. : lu in place Assessment & Plan Remarks Sepsis, clinically resolved - all clx remain negative - final Port related infection with septic emboli to lungs. Port remnant still in place. Possible new sources: aspiration pneumonia in health care setting, CAUTI, bacteremia (has port cath remnant in place). Persistent or recurrent Proteus bacteremia: ? port related cath infection (has port cath remnant in place). Aspiration PNA, HCAP. h/o C.diff hypervirulent 027 strain diarrhea in Dec, repeat C.diff negative Diarrhea could also be due to pancreatitis or Cdiff. Acute pancreatitis. Repeat CT with worsening pancreatitis but no abscess or retroperitoneal bleeding noted. Infected decubs, S/P diverting colostomy, sp revision of colostomy GIB present PLAN: dc Meropenem IV monitor CBC monitor fever Lanette Adames MD Oct 08, 2016 22:35
[2016-10-08 23:58] VITALS: BP 158/92; PULSE 113; RESP 20; TEMP 97.8; O2SAT 95
[2016-10-09] MEDS: METOPROLOL TARTRATE 50 MG TAB GT SCH ×3 (00:29→16:28)
[2016-10-09] MEDS: FOSPHENYTOIN INJ 100 MGPE in SODIUM CHLORIDE 0.9% INJ 50 ML IV SCH ×2 (00:29→17:47)
[2016-10-09 01:09] LABS: APTT (PATIENT) 43.7 SEC (24.3-30.1)
[2016-10-09] MEDS: PANTOPRAZOLE SODIUM 40 MG VIAL IV PUSH SCH ×2 (04:22→16:30)
[2016-10-09 05:10] VITALS: BP 144/85; PULSE 106; RESP 20; TEMP 97.3; O2SAT 94
[2016-10-09] MEDS: FREE WATER G-TUBE SCH ×4 (06:00→16:31)
[2016-10-09] MEDS: HEPARIN-D5W INJ 250 ML IV SCH (06:07)
[2016-10-09] MEDS: METOCLOPRAMIDE HCL 10 MG/2 ML VIAL IV SCH ×3 (06:08→21:49)
[2016-10-09] MEDS: hydrALAZINE HCL 50 MG TAB PO SCH ×3 (06:08→21:48)
[2016-10-09] MEDS: POTASSIUM PHOSPHATE/SODIUM PHOSPHATE 250 MG TAB PO SCH ×4 (06:08→16:31)
[2016-10-09 06:46] LABS: HEMATOCRIT 27.5 % (35.0-46.0); MEAN CELL VOLUME 85.2 FL (80.0-100.0); MEAN CORPUSCULAR HEMOGLOBIN 28.2 PG (27.0-34.0); PLATELET COUNT 171 TH/MM3 (150-450); RED BLOOD COUNT 3.22 MIL/MM3 (4.00-5.30); RED CELL DISTRIBUTION WIDTH 18.5 % (11.6-17.2); REVIEW FLAG FINAL
[2016-10-09 06:49] LABS: APTT (PATIENT) 41.3 SEC (24.3-30.1)
[2016-10-09 07:12] LABS: BICARBONATE 20.8 MEQ/L (21.0-32.0); POTASSIUM 4.9 MEQ/L (3.5-5.1)
[2016-10-09 08:00] VITALS: BP 170/90; PULSE 98; RESP 18; TEMP 97.5; O2SAT 98
--- NOTE | 2016-10-09 08:28 | HHI.NPPN ---
Subjective Complaints: Confused General Problems: Edema History of Present Illness 61-year-old female with past medical history of cerebellar aneurysm repair, seizure disorder, hypertension, hepatitis C. She was admitted on May 31 with failure to thrive. I was called to see the patient because of acute kidney injury. The patient had creatinine of 1.23 on admission which improved and then she had increase in the creatinine to 1.27 in June and on August 14 and then it went up to 2.0 and for the last week or so it has been going up again. The patient has had a prolonged hospital course with multiple episodes of infection including pneumonia, urinary tract infection, sepsis. Infectious Disease has been following and the patient has been getting antibiotics. Interval History her condition has not changed. Non oliguric. Review of Systems General General Remarks difficult to evaluate due to mental status Objective Data Data 10/08/16 10/09/16 19:00 07:00 Intake Total 700 ml 1604 ml Output Total 700 ml 2100 ml Balance 0 ml -496 ml Intake Oral 700 ml 0 ml IV Total 369 ml Tube Feeding 526 ml Other 709 ml Output Urine Total 700 ml 2100 ml # Bowel Movements 0 Vital Signs Date Time Temp Pulse Resp B/P Pulse Ox O2 Delivery O2 Flow Rate FiO2 10/09/16 05:10 97.3 106 20 144/85 94 10/08/16 23:58 97.8 113 20 158/92 95 10/08/16 18:38 21 10/08/16 16:00 98.8 114 22 141/93 96 10/08/16 14:28 97.3 104 20 163/95 97 10/08/16 12:00 98.1 116 22 153/96 95 10/08/16 12:00 95 -: 10/09/16 0615 10/09/16 0615 Tubes & Lines: Vas-Cath, [facility] Tubes & Lines Comment PEG, colostomy Physical Exam General Appearance: No Acute Distress, Comfortable Eyes Eye Exam: Pupils Equal Throat Throat Exam: Oral Mucosa Mcallen & Moist Pulmonary Resp Exam: No Distress, Crackles, Rhonchi, Decreased Bases, Diminished Breath Sounds Cardiology CV Exam: Regular, Normal Sinus Rhythm Gastrointestinal/Abdomen GI Exam: Soft, Non-Tender, Bowel Sounds Present, Positive Bowel Movement, Distended (with colostomy.) Musculoskeletal MS Exam: Joints Intact, Normal Tone Integumentary Skin Exam: Warm, Dry Extremeties Extremities Exam: Pedal Pulses Palpable, Moderate Edema, Pitting Edema, Dependent Edema Neurologic Neuro Exam: Alert, Awake Assessment/Plan Assessment Summary: IMELDA/Acute Renal Failure Electrolyte Assessment: Metabolic Acidosis Problem List: (1) IMELDA (acute kidney injury) Plan: She has been off dialysis since 10/02 (treatment 09/29, 09/30, 10/02) renal function stabilized overnight Monitor renal function and electrolytes. Start oral Sodium bicarbonate. VasCath can be removed. she has good urine output, extensive output from colostomy Hyperkalemia has improved. TF to be changed to Nepro. Discussed with RN. (2) COPD (chronic obstructive pulmonary disease) Plan: monitor pulmonary status she is on oxygen via nasal cannula (3) Edema Plan: monitor fluid volume status (4) History of CVA (cerebrovascular accident) Plan: continue supportive care needs assistance with oral care (5) Essential hypertension Plan: BP acceptable continue medications as ordered (6) Lactic acidosis Plan: corrected (7) Acute respiratory failure Plan: improved Problem Qualifiers (1) COPD (chronic obstructive pulmonary disease): (2) Acute respiratory failure: Qualified Code: J96.00 - Acute respiratory failure, unspecified whether with hypoxia or hypercapnia Reinier Mcmanus MD Oct 09, 2016 08:28
[2016-10-09] MEDS ORDERED: FOSPHENYTOIN SODIUM 100 MG PE/2 ML VIAL IV SCH (09:00)
[2016-10-09 09:59] VITALS: O2SAT 94
[2016-10-09] MEDS: LACTOBACILLUS ACIDOPHILUS TAB PO SCH ×3 (10:33→17:48)
[2016-10-09] MEDS: SODIUM BICARBONATE 650 MG TAB PO SCH ×2 (10:33→21:48)
[2016-10-09] MEDS: MULTIVITAMIN TAB PO SCH (10:33)
[2016-10-09] MEDS: SODIUM CHLORIDE 0.9% FLUSH 5 ML FLUSH IV FLUSH SCH ×2 (10:34→21:49)
[2016-10-09] MEDS: CALAMINE/PRAMOXINE LOTION 180 ML BTL TOPICAL SCH ×2 (11:16→21:00)
[2016-10-09] MEDS: BETAMETHASONE DIPROPIONATE 0.05% CREAM 15 GM TOPICAL SCH ×2 (11:16→21:00)
[2016-10-09] MEDS: PETROLATUM 49%/ZINC OXIDE 15% 4 OUNCE TUBE TOPICAL SCH (11:16)
[2016-10-09] MEDS: BACITRACIN TOP OINT 15 GM TUBE TOP SCH ×2 (11:17→21:00)
[2016-10-09 12:00] VITALS: BP 155/86; PULSE 104; RESP 20; TEMP 97.2; O2SAT 100
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
[2016-10-09 16:00] VITALS: BP 155/92; PULSE 105; RESP 18; TEMP 97.7; O2SAT 96
--- NOTE | 2016-10-09 17:40 | MB ---
cc: Mya HERMOSILLO DATE OF CONSULTATION 10/09/16 HISTORY OF PRESENT ILLNESS Ms. Garcia is a 60-year-old white female who has been the hospital since May 31 with multiple comorbidities. I saw her on 09/27 for an abnormal CAT scan at which time we felt that she probably had septic emboli in her lung from recurring infections. Infectious Disease has followed her. She has had an open decubitus that has been managed by plastic surgery and infectious disease and at the time that I initially saw her she was critically ill in the intensive care unit on mechanical ventilatory support. She was weaned and extubated on 10/03 and is now back on the floor. At the time I saw her earlier today, she was minimally responsive and is obviously extremely debilitated. The CT scan that she had of her chest on September 26 revealed several small emboli in the right upper lobe, bilateral pulmonary nodules, probably inflammatory, probably infectious and some small pleural effusions. There was a question of a mass in the gastric fundus. GI has seen her and does not believe she has gastric cancer. MEDICATIONS Reviewed and recorded in the EMR. PHYSICAL EXAMINATION VITAL SIGNS: 97, 150/86, pulse 100, respirations 18 and sat is 98% on room air. HEENT: Sclerae pale, anicteric. NECK: Neck veins are not distended. CHEST: Chest is minimally congested. No wheezing. ABDOMEN: Abdomen is obese. She has a gastric tube in place and a colostomy bag. EXTREMITIES: She has 1+ edema in the upper and lower extremities. NEUROLOGIC: Minimally responsive, not verbal. LABORATORY DATA Current labs - her white count is 9000, hemoglobin is nine, BUN is 41 with a creatinine of 2. She has been on IV heparin and her APTT is therapeutic. IMAGING STUDIES Last chest x-ray was on 10/06 at which time she had cardiomegaly and bilateral effusions. ASSESSMENT AND PLAN Ms. Garcia has been very seriously and chronically ill, hospitalized since May 31 with multiple problems and is currently actually stable from a pulmonary standpoint. A CT scan done on the third revealed a small emboli so she has been on IV heparin. Anticoagulation will have to be continued indefinitely at this point as long as she does not have any bleeding complications because she is immobile. At some point, a CT scan of her chest should be followed up to see if the previous nodules noted are resolving with treatment of her infection. She was a former smoker, so the possibility of malignancy has been entertained but at this point she would not be a candidate for therapeutic intervention if this was malignant so some time prior to her discharge a follow-up scan will be done. R. MD RYLAN Swift/ /4:22 PM /5:21 PM
[2016-10-09 20:00] VITALS: BP 166/97; PULSE 106; RESP 24; TEMP 98.3; O2SAT 98
[2016-10-10] VITALS (7 sets, daily range): BP systolic 150–161; BP diastolic 91–98; PULSE 80–116; RESP 17–24; TEMP 96.3–98.4; O2SAT 94–98
[2016-10-10] MEDS: METOPROLOL TARTRATE 50 MG TAB GT SCH ×4 (00:24→23:29)
[2016-10-10] MEDS: FOSPHENYTOIN INJ 100 MGPE in SODIUM CHLORIDE 0.9% INJ 50 ML IV SCH ×3 (00:24→17:13)
[2016-10-10] MEDS: POTASSIUM PHOSPHATE/SODIUM PHOSPHATE 250 MG TAB PO SCH ×5 (00:28→23:29)
[2016-10-10] MEDS: PANTOPRAZOLE SODIUM 40 MG VIAL IV PUSH SCH ×2 (03:14→16:05)
[2016-10-10] MEDS: FREE WATER G-TUBE SCH ×5 (06:00→23:31)
[2016-10-10] MEDS: hydrALAZINE HCL 50 MG TAB PO SCH ×3 (06:06→23:29)
[2016-10-10] MEDS: METOCLOPRAMIDE HCL 10 MG/2 ML VIAL IV SCH ×3 (06:06→23:29)
[2016-10-10] MEDS: HEPARIN-D5W INJ 250 ML IV SCH (06:18)
[2016-10-10 06:30] LABS: AUTOMATED NEUTROPHIL # 5.8 TH/MM3 (1.8-7.7); BASOPHIL # 0.1 TH/MM3 (0-0.2); BASOPHIL % 0.6 % (0.0-2.0); EOSINOPHIL # 0.7 TH/MM3 (0-0.4); EOSINOPHIL % 8.5 % (0.0-4.0); HEMATOCRIT 26.8 % (35.0-46.0); HEMO FLAGS AUTO DIFF; LYMPH % 11.9 % (9.0-44.0); MEAN CELL VOLUME 85.3 FL (80.0-100.0); MEAN CORPUSCULAR HEMOGLOBIN 28.4 PG (27.0-34.0); MEAN CORPUSCULAR HGB CONC 33.3 % (32.0-36.0); MONO % 9.5 % (0.0-8.0); NEUT % 69.5 % (16.0-70.0); PLATELET COUNT 183 TH/MM3 (150-450); RED BLOOD COUNT 3.14 MIL/MM3 (4.00-5.30); RED CELL DISTRIBUTION WIDTH 18.4 % (11.6-17.2); WHITE BLOOD COUNT 8.4 TH/MM3 (4.0-11.0)
[2016-10-10 06:46] LABS: APTT (PATIENT) 49.5 SEC (24.3-30.1)
[2016-10-10 06:58] LABS: ALKALINE PHOSPHATASE 295 U/L (45-117); ALT (GPT) 18 U/L (10-53); ANION GAP 11 MEQ/L (5-15); AST (GOT) 39 U/L (15-37); BICARBONATE 20.9 MEQ/L (21.0-32.0); BLOOD UREA NITROGEN 40 MG/DL (7-18); CHLORIDE 112 MEQ/L (98-107); GLOMERULAR FILTRATION RATE 27 ML/MIN (>89); MAGNESIUM 1.4 MG/DL (1.5-2.5); POTASSIUM 4.1 MEQ/L (3.5-5.1); SODIUM (NA) 144 MEQ/L (136-145); TOTAL BILIRUBIN ADULT 0.3 MG/DL (0.2-1.0)
[2016-10-10 08:08] LABS: BANDS 1 % (0-6); EOSINOPHILS 6 % (0-4); METAMYELOCYTES 2 % (0-1); MYELOCYTES 2 % (0-0); NEUTROPHIL # MANUAL DIFF 6.5 TH/MM3 (1.8-7.7); POLYS (SEG NEUTROPHILS) 72 % (16-70); WBC DIFF SAMPLE 100
[2016-10-10 08:09] LABS: PLATELET ESTIMATE SMEAR NORMAL (NORMAL); PLATELET MORPHOLOGY NORMAL (NORMAL); SCAN/DIFF FINAL DIFF MANUAL
[2016-10-10] MEDS: SODIUM CHLORIDE 0.9% FLUSH 5 ML FLUSH IV FLUSH SCH (09:00)
[2016-10-10] MEDS: SODIUM BICARBONATE 650 MG TAB PO SCH ×2 (09:26→23:28)
[2016-10-10] MEDS: MULTIVITAMIN TAB PO SCH (09:26)
[2016-10-10] MEDS: LACTOBACILLUS ACIDOPHILUS TAB PO SCH ×3 (09:26→17:13)
[2016-10-10] MEDS: BACITRACIN TOP OINT 15 GM TUBE TOP SCH (09:27)
[2016-10-10] MEDS: BETAMETHASONE DIPROPIONATE 0.05% CREAM 15 GM TOPICAL SCH (09:27)
[2016-10-10] MEDS: CALAMINE/PRAMOXINE LOTION 180 ML BTL TOPICAL SCH (09:27)
[2016-10-10] MEDS: PETROLATUM 49%/ZINC OXIDE 15% 4 OUNCE TUBE TOPICAL SCH (09:28)
[2016-10-10] MEDS ORDERED: MAGNESIUM OXIDE 400 MG TAB PO ONE (10:00)
--- NOTE | 2016-10-10 11:21 | HHI.NPPN ---
Subjective Complaints: Confused General Problems: Edema History of Present Illness 61-year-old female with past medical history of cerebellar aneurysm repair, seizure disorder, hypertension, hepatitis C. She was admitted on May 31 with failure to thrive. I was called to see the patient because of acute kidney injury. The patient had creatinine of 1.23 on admission which improved and then she had increase in the creatinine to 1.27 in June and on August 14 and then it went up to 2.0 and for the last week or so it has been going up again. The patient has had a prolonged hospital course with multiple episodes of infection including pneumonia, urinary tract infection, sepsis. Infectious Disease has been following and the patient has been getting antibiotics. Interval History Renal function is better. She is non verbal but moans. Continues on heparin gtt. (Cecy Luo) Review of Systems General General Remarks difficult to evaluate due to mental status (Cecy Luo) Objective Data Data 10/09/16 10/10/16 19:00 07:00 Intake Total 1212 ml 1112 ml Output Total 1200 ml 2200 ml Balance 12 ml -1088 ml Intake Oral 0 ml 0 ml IV Total 202 ml 112 ml Tube Feeding 342 ml 1000 ml Other 668 ml Output Urine Total 1200 ml 1675 ml Stool Total 525 ml Vital Signs Date Time Temp Pulse Resp B/P Pulse Ox O2 Delivery O2 Flow Rate FiO2 10/10/16 08:00 98.4 96 20 155/98 97 10/10/16 04:00 97.7 96 20 150/92 98 10/10/16 00:00 97.3 116 24 152/97 94 10/09/16 20:00 98.3 106 24 166/97 98 10/09/16 16:00 97.7 105 18 155/92 96 10/09/16 12:00 97.2 104 20 155/86 100 (Cecy Luo) -: 10/10/16 0615 10/10/16 0615 Tubes & Lines: Vas-Cath, Lu Tubes & Lines Comment PEG, colostomy (Cecy Luo) Physical Exam General Appearance: No Acute Distress, Comfortable Appearance Remarks awake, non verbal (Cecy Luo) Eyes Eye Exam: Pupils Equal (Cecy Luo) Throat Throat Exam: Oral Mucosa Rodney & Moist Throat Remarks white exudate on tongue, oropharynx (Cecy Luo) Pulmonary Resp Exam: No Distress, Crackles, Rhonchi, Decreased Bases, Diminished Breath Sounds (Cecy Luo) Cardiology CV Exam: Regular, Normal Sinus Rhythm (Cecy Luo) Gastrointestinal/Abdomen GI Exam: Soft, Non-Tender, Bowel Sounds Present, Positive Bowel Movement, Distended (with colostomy.) (Cecy Luo) Musculoskeletal MS Exam: Joints Intact, Normal Tone (Cecy Luo) Integumentary Skin Exam: Warm, Dry Skin Remarks sacral pressure ulcer (Cecy Luo) Extremeties Extremities Exam: Pedal Pulses Palpable, Moderate Edema, Pitting Edema, Dependent Edema (Cecy Luo) Neurologic Neuro Exam: Alert, Awake (Cecy Luo) Assessment/Plan Assessment Summary: IMELDA/Acute Renal Failure Electrolyte Assessment: Metabolic Acidosis Problem List: (1) IMELDA (acute kidney injury) Plan: She has been off dialysis since 10/02 (treatment 09/29, 09/30, 10/02), vascath was removed renal function has improved good urine output with lu continue oral bicarbonate Monitor renal function and electrolytes. Magnesium was replaced on nephro tube feeding, free water increased through PEG avoid nephrotoxins labs in am (2) Status post colostomy Plan: due to ulcerated colon she has significant output also has PEG, tolerating oral feeding GI has signed off (3) COPD (chronic obstructive pulmonary disease) Plan: monitor pulmonary status she is on oxygen via nasal cannula (4) PE (pulmonary thromboembolism) Plan: on heparin pulmonary has evaluated (5) Edema Plan: monitor fluid volume status (6) History of CVA (cerebrovascular accident) Plan: continue supportive care, wound care needs assistance with oral care she has declined since her surgery (7) Essential hypertension Plan: BP acceptable continue medications as ordered (8) Lactic acidosis Plan: corrected (9) Acute respiratory failure Plan: improved (Cecy Luo) Plan patient was seen and examined. Renal function has improved. Vascath removed. Add free water to TF as she has developed hypernatremia. Monitor renal function. (Reinier Mcmanus MD) Problem Qualifiers (1) COPD (chronic obstructive pulmonary disease): (2) Acute respiratory failure: Qualified Code: J96.00 - Acute respiratory failure, unspecified whether with hypoxia or hypercapnia Cecy Luo Oct 10, 2016 11:21 Reinier Mcmanus MD Oct 10, 2016 15:08
--- NOTE | 2016-10-10 11:26 | HHI.HCPN ---
Reason for visit a. To assist with evaluation and management of symptoms including: pain b. To assist medical decision maker(s) with: better understanding of current medical conditions; weighing benefits/burdens of medical treatment options; making medical treatment decisions. Subjective/Interval History Pt on my visit was sleeping, but easily arousable. She can answer some questions, cannot follow commands consistently, and cannot answer consistently still confuse. Continue to be on Heparin Drip, tube feedings. There is no grimacing does not seem like she is in pain. When I ask if she is painful, she did not answer. Family/friend interactions Called pt's spouse. Spouse continues to be upset. Tried to update pt, and spoke about the course of hospitalization, clots, icu stays and infection. Despite that, pt's spouse continue to feel certain aspects of the medical care contributed to patient's decline. He express strong negative feelings of frustration, and lack of communication. He says he would like to speak with the surgeon. Advance Directives Living Will: Never completed Health Care Surrogate: Never completed Durable Power of Assembler For Puller Over Machine: Never completed Objective Vital Signs Date Time Temp Pulse Resp B/P Pulse Ox O2 Delivery O2 Flow Rate FiO2 10/10/16 08:00 98.4 96 20 155/98 97 10/10/16 04:00 97.7 96 20 150/92 98 10/10/16 00:00 97.3 116 24 152/97 94 10/09/16 20:00 98.3 106 24 166/97 98 10/09/16 16:00 97.7 105 18 155/92 96 10/09/16 12:00 97.2 104 20 155/86 100 Intake & Output 10/10/16 10/10/16 07:00 19:00 Intake Total 1112 ml Output Total 2200 ml Balance -1088 ml Intake Oral 0 ml IV Total 112 ml Tube Feeding 1000 ml Output Urine Total 1675 ml Stool Total 525 ml Physical Exam CONSTITUTIONAL/GENERAL: This is an adequately nourished patient,intubated, eyes open, more interative and verbalize some TUBES/LINES/DRAINS:wound vac, right IJ, lu, tube feedings SKIN: No jaundice, rashes, or lesions. Ecchymoses on upper extremities. No wounds seen anteriorly. Skin temperature appropriate. Not diaphoretic. HEAD: Atraumatic. Normocephalic. EYES: Open,. tracking. No scelera icterus. Fundi not examined. ENT: Hearing grossly normal. Nose without bleeding or purulent drainage. NECK: Trachea midline. Supple, nontender. No palpable thyroid enlargement or nodularity. CARDIOVASCULAR: Regular rate and rhythm without murmurs, gallops, or rubs. No JVD. Peripheral pulses symmetric. RESPIRATORY/CHEST: Symmetric, decreased breath sound bilaterally. expiratory wheezing heard. GASTROINTESTINAL: Abdomen soft, non-tender, on palpation. BS present. Colostomy bag. GENITOURINARY: Without palpable bladder distension. MUSCULOSKELETAL: edematous upper and lower ext. LYMPHATICS: No palpable cervical or supraclavicular adenopathy. NEUROLOGICAL:Opens eyes, more communicative, but still very confused. Diagnostic Tests Laboratory Laboratory Tests Test 10/07/16 10/07/16 10/08/16 10/08/16 15:44 22:25 06:40 13:30 Activated Partial 41.1 SEC 38.7 SEC 40.0 SEC 36.8 SEC Thromboplast Time (24.3-30.1) (24.3-30.1) (24.3-30.1) (24.3-30.1) White Blood Count 9.6 TH/MM3 (4.0-11.0) Red Blood Count 3.49 MIL/MM3 (4.00-5.30) Hemoglobin 9.6 GM/DL (11.6-15.3) Hematocrit 29.7 % (35.0-46.0) Mean Corpuscular Volume 85.0 FL (80.0-100.0) Mean Corpuscular Hemoglobin 27.6 PG (27.0-34.0) Mean Corpuscular Hemoglobin 32.5 % Concent (32.0-36.0) Red Cell Distribution Width 18.8 % (11.6-17.2) Platelet Count 175 TH/MM3 (150-450) Mean Platelet Volume 9.1 FL (7.0-11.0) Sodium Level 142 MEQ/L (136-145) Potassium Level 5.3 MEQ/L (3.5-5.1) Chloride Level 113 MEQ/L (98-107) Carbon Dioxide Level 20.7 MEQ/L (21.0-32.0) Anion Gap 8 MEQ/L (5-15) Blood Urea Nitrogen 39 MG/DL (7-18) Creatinine 2.10 MG/DL (0.50-1.00) Estimat Glomerular Filtration 24 ML/MIN (>89) Rate Random Glucose 113 MG/DL (74-106) Calcium Level 7.8 MG/DL (8.5-10.1) Phosphorus Level 4.3 MG/DL (2.5-4.9) Test 10/08/16 10/09/16 10/09/16 10/10/16 20:15 00:38 06:15 06:15 Sodium Level 141 MEQ/L 142 MEQ/L 144 MEQ/L (136-145) (136-145) (136-145) Potassium Level 5.1 MEQ/L 4.9 MEQ/L 4.1 MEQ/L (3.5-5.1) (3.5-5.1) (3.5-5.1) Chloride Level 111 MEQ/L 113 MEQ/L 112 MEQ/L (98-107) (98-107) (98-107) Carbon Dioxide Level 21.0 MEQ/L 20.8 MEQ/L 20.9 MEQ/L (21.0-32.0) (21.0-32.0) (21.0-32.0) Anion Gap 9 MEQ/L (5-15) 8 MEQ/L (5-15) 11 MEQ/L (5-15) Blood Urea Nitrogen 38 MG/DL (7-18) 41 MG/DL (7-18) 40 MG/DL (7-18) Creatinine 2.10 MG/DL 2.04 MG/DL 1.91 MG/DL (0.50-1.00) (0.50-1.00) (0.50-1.00) Estimat Glomerular Filtration 24 ML/MIN (>89) 25 ML/MIN (>89) 27 ML/MIN (>89) Rate Random Glucose 117 MG/DL 117 MG/DL 130 MG/DL (74-106) (74-106) (74-106) Calcium Level 8.0 MG/DL 8.0 MG/DL 8.1 MG/DL (8.5-10.1) (8.5-10.1) (8.5-10.1) HIV (1&2) Antibody NEGATIVE (NEGATIVE) Activated Partial 43.7 SEC 41.3 SEC 49.5 SEC Thromboplast Time (24.3-30.1) (24.3-30.1) (24.3-30.1) White Blood Count 9.0 TH/MM3 8.4 TH/MM3 (4.0-11.0) (4.0-11.0) Red Blood Count 3.22 MIL/MM3 3.14 MIL/MM3 (4.00-5.30) (4.00-5.30) Hemoglobin 9.1 GM/DL 8.9 GM/DL (11.6-15.3) (11.6-15.3) Hematocrit 27.5 % 26.8 % (35.0-46.0) (35.0-46.0) Mean Corpuscular Volume 85.2 FL 85.3 FL (80.0-100.0) (80.0-100.0) Mean Corpuscular Hemoglobin 28.2 PG 28.4 PG (27.0-34.0) (27.0-34.0) Mean Corpuscular Hemoglobin 33.0 % 33.3 % Concent (32.0-36.0) (32.0-36.0) Red Cell Distribution Width 18.5 % 18.4 % (11.6-17.2) (11.6-17.2) Platelet Count 171 TH/MM3 183 TH/MM3 (150-450) (150-450) Mean Platelet Volume 9.0 FL 8.5 FL (7.0-11.0) (7.0-11.0) Phosphorus Level 4.5 MG/DL 4.7 MG/DL (2.5-4.9) (2.5-4.9) Neutrophils (%) (Auto) 69.5 % (16.0-70.0) Lymphocytes (%) (Auto) 11.9 % (9.0-44.0) Monocytes (%) (Auto) 9.5 % (0.0-8.0) Eosinophils (%) (Auto) 8.5 % (0.0-4.0) Basophils (%) (Auto) 0.6 % (0.0-2.0) Neutrophils # (Auto) 5.8 TH/MM3 (1.8-7.7) Lymphocytes # (Auto) 1.0 TH/MM3 (1.0-4.8) Monocytes # (Auto) 0.8 TH/MM3 (0-0.9) Eosinophils # (Auto) 0.7 TH/MM3 (0-0.4) Basophils # (Auto) 0.1 TH/MM3 (0-0.2) CBC Comment AUTO DIFF Differential Total Cells 100 Counted Neutrophils % (Manual) 72 % (16-70) Band Neutrophils % 1 % (0-6) Lymphocytes % 9 % (9-44) Monocytes % 8 % (0-8) Eosinophils % 6 % (0-4) Neutrophils # (Manual) 6.5 TH/MM3 (1.8-7.7) Metamyelocytes 2 % (0-1) Myelocytes 2 % (0-0) Differential Comment FINAL DIFF MANUAL Platelet Estimate NORMAL (NORMAL) Platelet Morphology Comment NORMAL (NORMAL) Magnesium Level 1.4 MG/DL (1.5-2.5) Total Bilirubin 0.3 MG/DL (0.2-1.0) Aspartate Amino Transf 39 U/L (15-37) (AST/SGOT) Alanine Aminotransferase 18 U/L (10-53) (ALT/SGPT) Alkaline Phosphatase 295 U/L (45-117) Total Protein 6.4 GM/DL (6.4-8.2) Albumin 2.1 GM/DL (3.4-5.0) Result Diagram: 10/10/1615 10/10/1615 Imaging Last Impressions Chest X-Ray 10/06/16 0000 Signed Impressions: Service Date/Time: Thursday, October 06, 2016 23:04 - CONCLUSION: 1. Cardiomegaly and findings of congestive heart failure. Enlarging bilateral effusions Reed Rico MD Gastrostomy Tube Change 10/01/16 0000 Signed Impressions: Service Date/Time: Saturday, October 01, 2016 13:54 - CONCLUSION: 1. Uncomplicated gastrojejunostomy tube placement Reed Rico MD Head CT 09/29/16 0000 Signed Impressions: Service Date/Time: Thursday, September 29, 2016 12:54 - CONCLUSION: 1. No significant change compared to 09/25/16. 2. Extensive bilateral encephalomalacia (right worse than left) predominantly within the frontal lobes and parietal occipital lobes as well as the right temporal lobe. 3. Extensive periventricular and subcortical white matter small vessel ischemic changes bilaterally. 4. Scattered old lacunar infarcts within the bilateral basal ganglia. 5. Stable ventriculomegaly. 6. No acute hemorrhage, midline shift , or extraaxial fluid collections. Ernie Mathis MD Abdomen/Pelvis CT 09/29/16 0000 Signed Impressions: Service Date/Time: Thursday, September 29, 2016 13:01 - CONCLUSION: 1. Large hernia adjacent to the colostomy without abscess. 2. There is no free air. There is no evidence for an obstruction. 3. There is increasing induration around the pancreas. Correlation with laboratory values is suggested. Vinay Avalos MD FACR Upper Extremity Ultrasound 09/26/16 0000 Signed Impressions: Service Date/Time: Monday, September 26, 2016 20:17 - CONCLUSION: No DVT or superficial venous thrombosis is identified within either upper extremity. Please note that the left cephalic vein is not visualized. Aidan Churchill MD CT Angiography 09/26/16 0000 Signed Impressions: Service Date/Time: Monday, September 26, 2016 15:12 - CONCLUSION: 1. Several small pulmonary emboli in the right upper lobe. 2. Multiple bilateral pulmonary parenchymal nodules. Both neoplastic and inflammatory etiologies are in the differential diagnosis. 3. Mildly prominent right hilar lymph node, likely reactive. 4. Bilateral lower lobe atelectasis and small left pleural effusion. 5. Possible mass in the medial gastric fundus. Rony Espinoza MD Lower Extremity Ultrasound 09/25/16 1622 Signed Impressions: Service Date/Time: September 17:26 - CONCLUSION: No DVT of the left lower extremity. Aidan Felipe MD Vena Cav[facility] 09/22/16 1702 Signed Impressions: Service Date/Time: Thursday, September 22, 2016 15:50 - CONCLUSION: 1. Unsuccessful port removal. Reed Rico MD Abdomen X-Ray 09/16/16 0000 Signed Impressions: Service Date/Time: Friday, September 16, 2016 16:55 - CONCLUSION: G-tube in place in the body the stomach properly positioned David Rivera MD Assessment and Plan Disease Oriented Problem List: (1) Acute respiratory failure Comment: PE, pulmonary nodules, HCAP, worsening consolidation of the left. (2) Pulmonary embolism (3) Severe sepsis (4) COPD (chronic obstructive pulmonary disease) (5) Pancreatitis (6) IMELDA (acute kidney injury) Comment: HD (7) Infected decubitus ulcer Comment: Diverting colostomy in 07/15/16 for sacral decubitus ulcer. Revision 08/13/[address] Faulkner. (8) History of CVA (cerebrovascular accident) Symptom Scale: (1) Dyspnea Pertinent Non-Medical Issues Psychosocial: Spiritual: Legal: Ethical issues impacting care: Important Contacts Spouse [phone] DCF [phone] of abdomen and pelvis showed evidence of acute pancreatitis and large perileostomy hernia. Long hospital course of encephalopathy, sacral decubitis ulcer requriing diverting colostomy and revision. Complicated by sepsis, encephlopath, now sepsis, multiorgan failure, Acute hypoxemic respiratory failure, Right upper lobe pulmonary embolism, Multiple bilateral pulmonary nodules, Left lower lobe pneumonia/effusion/HCAP long term care social worker prognosis appears poor. Has had a very long hospital course. Code Status: Full Code Plan == capacity: does not have capacity to make medical decisions. == Adi care decision maker: (proxy) . I have consulted case management as there is documentation of neglect 09/30. Per case management documented 09/30 " CM CONSULTED TO LOCATE/RESEARCH A PAST COMPLAINT "WITH THE DCF AND ALSO CONFIRM DECISION MAKER. CM THE DCF AT [phone] AND SPOKE WITH CESAR ELLINGTON. THE CASE NUMBER WAS [id number]. THE INVESTIGATION IS CLOSED HOWEVER IT REVEALED THAT THE PATIENT WAS SELF NEGLIGENT.THERE WAS NO EVIDENCE TO SUPPORT THAT THE OR ANY OTHER FAMILY MEMBER WAS NEGLIGENT. CM WILL NOTIFY PALLIATIVE CARE OF THE ABOVE CONVERSATION." TEENA AJ RN " would be decision maker. == pain - denied pain today. == Goals Called pt's spouse. Spouse continues to be upset. Tried to update pt , and spoke about the course of hospitalization, clots, icu stays, subclinical seizures and infection. Although I have reviewed it with him, pt's spouse continue to feel certain aspects of the medical care contributed to patient's decline. He express strong feelings of frustration, and the lack of communication. He says he desire speak with the surgeon if possible. Goals of care remains aggressive, unlikely to change for the time being, under current circumstance. == I have spoken to attending physician and inform medical team how upset pt's spouse is, pt's spouse frustration, and lack of communication. == Palliative care will continue to follow as pt clinical condition evolves. It seems goals of care is well establish for now, so we will follow peripherally. Time Spent Total Floor Time (mins): 40 Face to Face Time (mins): 20 Attestation To help prompt me to consider important information that might be impacting today's encounter and assessment, information from prior notes written by myself or my colleagues may have been "brought forward" into today's note. My signature on this note, however, is an attestation that I personally performed the exam, history, and/or decision-making noted today, and, unless otherwise indicated, the interactions with patient, family, and staff as well as the review of records all occurred today. I also attest that the listed assessment and stated plan reflect my best clinical judgment today based on the combination of historical information, prior notes, and today's exam/ interactions. When time spent is documented, it refers only to time spent today by the signer, or if indicated, combined time spent today by collaborating physician/nurse practitioner. Teja Espinosa MD Oct 10, 2016 11:26
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
[2016-10-10] MEDS: NYSTAT/DIPHENHY/LIDO MOUTHWASH (Adult) 120ML SWISH-SWAL SCH ×3 (16:06→21:00)
[2016-10-10] MEDS: SODIUM CHLORIDE 0.9% FLUSH 5 ML FLUSH IV FLUSH PRN (16:07)
[2016-10-11] VITALS (7 sets, daily range): BP systolic 139–155; BP diastolic 71–94; PULSE 80–96; RESP 18–22; TEMP 97–97.3; O2SAT 93–97
[2016-10-11] MEDS: FOSPHENYTOIN INJ 100 MGPE in SODIUM CHLORIDE 0.9% INJ 50 ML IV SCH ×3 (00:38→16:44)
[2016-10-11] MEDS: BETAMETHASONE DIPROPIONATE 0.05% CREAM 15 GM TOPICAL SCH ×2 (00:38→08:33)
[2016-10-11] MEDS: SODIUM CHLORIDE 0.9% FLUSH 5 ML FLUSH IV FLUSH SCH ×2 (00:39→08:32)
[2016-10-11] MEDS: NYSTAT/DIPHENHY/LIDO MOUTHWASH (Adult) 120ML SWISH-SWAL SCH ×5 (00:39→21:00)
[2016-10-11] MEDS: BACITRACIN TOP OINT 15 GM TUBE TOP SCH ×2 (00:39→08:33)
[2016-10-11] MEDS: CALAMINE/PRAMOXINE LOTION 180 ML BTL TOPICAL SCH ×2 (00:39→08:33)
[2016-10-11] MEDS: PANTOPRAZOLE SODIUM 40 MG VIAL IV PUSH SCH ×2 (05:18→16:44)
[2016-10-11] MEDS: METOCLOPRAMIDE HCL 10 MG/2 ML VIAL IV SCH ×2 (05:18→13:02)
[2016-10-11] MEDS: FREE WATER G-TUBE SCH ×3 (05:18→16:44)
[2016-10-11] MEDS: POTASSIUM PHOSPHATE/SODIUM PHOSPHATE 250 MG TAB PO SCH ×3 (05:19→16:43)
[2016-10-11] MEDS: hydrALAZINE HCL 50 MG TAB PO SCH ×2 (05:19→13:02)
[2016-10-11] MEDS: METOPROLOL TARTRATE 50 MG TAB GT SCH ×2 (05:19→16:43)
[2016-10-11 06:03] LABS: HEMATOCRIT 28.9 % (35.0-46.0); MEAN CELL VOLUME 86.1 FL (80.0-100.0); MEAN CORPUSCULAR HEMOGLOBIN 27.6 PG (27.0-34.0); PLATELET COUNT 232 TH/MM3 (150-450); RED BLOOD COUNT 3.36 MIL/MM3 (4.00-5.30); REVIEW FLAG FINAL; WHITE BLOOD COUNT 8.9 TH/MM3 (4.0-11.0)
[2016-10-11 07:32] LABS: BICARBONATE 21.8 MEQ/L (21.0-32.0); MAGNESIUM 1.4 MG/DL (1.5-2.5); POTASSIUM 3.3 MEQ/L (3.5-5.1)
[2016-10-11] MEDS ORDERED: MAGNESIUM OXIDE 400 MG TAB PO ONE (08:15)
[2016-10-11] MEDS ORDERED: POTASSIUM CHLORIDE 10 MEQ CONTROLLED RELEASE TAB PO ONE (08:15)
[2016-10-11] MEDS: LACTOBACILLUS ACIDOPHILUS TAB PO SCH ×3 (08:32→16:43)
[2016-10-11] MEDS: SODIUM BICARBONATE 650 MG TAB PO SCH (08:32)
[2016-10-11] MEDS: MULTIVITAMIN TAB PO SCH (08:32)
[2016-10-11] MEDS: PETROLATUM 49%/ZINC OXIDE 15% 4 OUNCE TUBE TOPICAL SCH (08:33)
[2016-10-11] MEDS ORDERED: MAGNESIUM SULFATE 1 GM PREMIX 100 ML IV ONE (09:00)
[2016-10-11] MEDS: HEPARIN-D5W INJ 250 ML IV SCH (10:09)
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
--- NOTE | 2016-10-11 14:41 | HHI.NPPN ---
Subjective Complaints: Confused General Problems: Edema History of Present Illness 61-year-old female with past medical history of cerebellar aneurysm repair, seizure disorder, hypertension, hepatitis C. She was admitted on May 31 with failure to thrive. I was called to see the patient because of acute kidney injury. The patient had creatinine of 1.23 on admission which improved and then she had increase in the creatinine to 1.27 in June and on August 14 and then it went up to 2.0 and for the last week or so it has been going up again. The patient has had a prolonged hospital course with multiple episodes of infection including pneumonia, urinary tract infection, sepsis. Infectious Disease has been following and the patient has been getting antibiotics. Review of Systems General General Remarks difficult to evaluate due to mental status Objective Data Data 10/10/16 10/11/16 19:00 07:00 Intake Total 307 ml 141 ml Output Total 1000 ml 1300 ml Balance -693 ml -1159 ml Intake Oral 0 ml IV Total 307 ml 141 ml Output Urine Total 1000 ml 1300 ml Stool Total 0 ml Vital Signs Date Time Temp Pulse Resp B/P Pulse Ox O2 Delivery O2 Flow Rate FiO2 10/11/16 12:27 97.0 90 18 139/87 94 10/11/16 09:35 94 21 10/11/16 07:51 97.2 88 20 148/83 94 10/11/16 04:00 97.3 88 19 139/86 94 10/11/16 00:00 97.1 85 18 155/94 93 10/10/16 20:00 96.4 80 17 160/96 95 10/10/16 18:33 95 21 10/10/16 16:00 96.3 90 20 161/91 95 -: 10/11/16 0535 10/11/16 0655 Tubes & Lines: Vas-Cath, Lu Tubes & Lines Comment PEG, colostomy Physical Exam General Appearance: No Acute Distress, Comfortable Eyes Eye Exam: Pupils Equal Throat Throat Exam: Oral Mucosa [place] & Moist Pulmonary Resp Exam: No Distress, Crackles, Rhonchi, Decreased Bases, Diminished Breath Sounds Cardiology CV Exam: Regular, Normal Sinus Rhythm Gastrointestinal/Abdomen GI Exam: Soft, Non-Tender, Bowel Sounds Present, Positive Bowel Movement, Distended (with colostomy.) Musculoskeletal MS Exam: Joints Intact, Normal Tone Integumentary Skin Exam: Warm, Dry Extremeties Extremities Exam: Pedal Pulses Palpable, Moderate Edema, Pitting Edema, Dependent Edema Neurologic Neuro Exam: Alert, Awake Assessment/Plan Assessment Summary: IMELDA/Acute Renal Failure Electrolyte Assessment: Metabolic Acidosis Problem List: (1) IMELDA (acute kidney injury) Plan: She has been off dialysis since 10/02 (treatment 09/29, 09/30, 10/02), vascath was removed renal function has improved good urine output with lu continue oral bicarbonate on nephro tube feeding, free water increased through PEG avoid nephrotoxins Cr 1.6 (2) Status post colostomy Plan: due to ulcerated colon she has significant output also has PEG, tolerating oral feeding GI has signed off (3) COPD (chronic obstructive pulmonary disease) Plan: monitor pulmonary status she is on oxygen via nasal cannula (4) PE (pulmonary thromboembolism) Plan: on heparin pulmonary has evaluated (5) Edema Plan: monitor fluid volume status (6) History of CVA (cerebrovascular accident) Plan: continue supportive care, wound care needs assistance with oral care she has declined since her surgery (7) Essential hypertension Plan: BP acceptable continue medications as ordered (8) Lactic acidosis Plan: corrected (9) Acute respiratory failure Plan: improved Problem Qualifiers (1) COPD (chronic obstructive pulmonary disease): (2) Acute respiratory failure: Qualified Code: J96.00 - Acute respiratory failure, unspecified whether with hypoxia or hypercapnia Chela Ibarra MD Oct 11, 2016 14:41
[2016-10-12] VITALS: BP 146/91; PULSE 85; RESP 18; TEMP 95.9; O2SAT 99
[2016-10-12] MEDS: BACITRACIN TOP OINT 15 GM TUBE TOP SCH ×3 (00:24→22:50)
[2016-10-12] MEDS: SODIUM CHLORIDE 0.9% FLUSH 5 ML FLUSH IV FLUSH SCH ×3 (00:24→21:00)
[2016-10-12] MEDS: SODIUM BICARBONATE 650 MG TAB PO SCH ×3 (00:24→22:44)
[2016-10-12] MEDS: CALAMINE/PRAMOXINE LOTION 180 ML BTL TOPICAL SCH ×3 (00:25→22:49)
[2016-10-12] MEDS: METOCLOPRAMIDE HCL 10 MG/2 ML VIAL IV SCH ×4 (00:25→22:45)
[2016-10-12] MEDS: hydrALAZINE HCL 50 MG TAB PO SCH ×4 (00:25→22:45)
[2016-10-12] MEDS: BETAMETHASONE DIPROPIONATE 0.05% CREAM 15 GM TOPICAL SCH ×3 (00:25→22:49)
[2016-10-12] MEDS: FREE WATER G-TUBE SCH ×5 (00:26→22:46)
[2016-10-12] MEDS: POTASSIUM PHOSPHATE/SODIUM PHOSPHATE 250 MG TAB PO SCH ×5 (00:26→22:45)
[2016-10-12] MEDS: METOPROLOL TARTRATE 50 MG TAB GT SCH ×4 (00:26→22:44)
[2016-10-12] MEDS: FOSPHENYTOIN SODIUM 100 MG PE/2 ML VIAL IV SCH ×3 (02:48→15:57)
[2016-10-12] MEDS: PANTOPRAZOLE SODIUM 40 MG VIAL IV PUSH SCH ×2 (04:01→15:58)
[2016-10-12 06:00] VITALS: BP 155/78; PULSE 82; RESP 24; O2SAT 95
[2016-10-12 06:55] LABS: AUTOMATED NEUTROPHIL # 5.7 TH/MM3 (1.8-7.7); BASOPHIL # 0.1 TH/MM3 (0-0.2); BASOPHIL % 0.9 % (0.0-2.0); EOSINOPHIL # 0.8 TH/MM3 (0-0.4); EOSINOPHIL % 9.7 % (0.0-4.0); HEMATOCRIT 26.3 % (35.0-46.0); LYMPHOCYTE # 0.7 TH/MM3 (1.0-4.8); MEAN CELL VOLUME 86.2 FL (80.0-100.0); MEAN CORPUSCULAR HEMOGLOBIN 28.2 PG (27.0-34.0); MEAN CORPUSCULAR HGB CONC 32.7 % (32.0-36.0); MONO % 7.8 % (0.0-8.0); NEUT % 72.6 % (16.0-70.0); PLATELET COUNT 203 TH/MM3 (150-450); RED BLOOD COUNT 3.05 MIL/MM3 (4.00-5.30); RED CELL DISTRIBUTION WIDTH 18.6 % (11.6-17.2); WHITE BLOOD COUNT 7.9 TH/MM3 (4.0-11.0)
[2016-10-12 06:58] LABS: HEMO FLAGS AUTO DIFF
[2016-10-12 07:09] LABS: BICARBONATE 21.7 MEQ/L (21.0-32.0); MAGNESIUM 1.8 MG/DL (1.5-2.5); POTASSIUM 3.6 MEQ/L (3.5-5.1)
[2016-10-12 07:10] VITALS: BP 144/78; PULSE 80; RESP 20; TEMP 96.6; O2SAT 96
[2016-10-12 07:35] LABS: APTT (PATIENT) 41.5 SEC (24.3-30.1)
[2016-10-12 08:11] LABS: BANDS 4 % (0-6); EOSINOPHILS 6 % (0-4); NEUTROPHIL # MANUAL DIFF 5.9 TH/MM3 (1.8-7.7); PLATELET ESTIMATE SMEAR NORMAL (NORMAL); PLATELET MORPHOLOGY NORMAL (NORMAL); POLYS (SEG NEUTROPHILS) 71 % (16-70); SCAN/DIFF FINAL DIFF MANUAL; WBC DIFF SAMPLE 100
[2016-10-12] MEDS: LACTOBACILLUS ACIDOPHILUS TAB PO SCH ×3 (09:47→15:58)
[2016-10-12] MEDS: MULTIVITAMIN TAB PO SCH (09:47)
[2016-10-12] MEDS: NYSTAT/DIPHENHY/LIDO MOUTHWASH (Adult) 120ML SWISH-SWAL SCH ×4 (09:47→22:44)
[2016-10-12] MEDS: PETROLATUM 49%/ZINC OXIDE 15% 4 OUNCE TUBE TOPICAL SCH (09:48)
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
[2016-10-12 11:07] VITALS: BP 121/71; PULSE 83; RESP 20; TEMP 95.4; O2SAT 95
[2016-10-12] MEDS: HEPARIN-D5W INJ 250 ML IV SCH (13:49)
[2016-10-12 15:00] VITALS: BP_SYST 121; BP_SYST 157; BP_DIAS 71; BP_DIAS 80; PULSE 83; RESP 20; TEMP 95.4; TEMP 97.4; O2SAT 95; O2SAT 96
--- NOTE | 2016-10-12 16:58 | HHI.NPPN ---
Subjective Complaints: Confused General Problems: Edema History of Present Illness 61-year-old female with past medical history of cerebellar aneurysm repair, seizure disorder, hypertension, hepatitis C. She was admitted on May 31 with failure to thrive. I was called to see the patient because of acute kidney injury. The patient had creatinine of 1.23 on admission which improved and then she had increase in the creatinine to 1.27 in June and on August 14 and then it went up to 2.0 and for the last week or so it has been going up again. The patient has had a prolonged hospital course with multiple episodes of infection including pneumonia, urinary tract infection, sepsis. Infectious Disease has been following and the patient has been getting antibiotics. Review of Systems General General Remarks difficult to evaluate due to mental status Objective Data Data 10/11/16 10/12/16 18:59 06:59 Intake Total 1237 ml Output Total 650 ml 600 ml Balance -650 ml 637 ml IV Total 214 ml Tube Feeding 1023 ml Output Urine Total 650 ml 600 ml # Bowel Movements 0 Vital Signs Date Time Temp Pulse Resp B/P Pulse Ox O2 Delivery O2 Flow Rate FiO2 10/12/16 15:00 97.4 83 20 157/80 96 10/12/16 11:07 95.4 83 20 121/71 95 10/12/16 07:10 96.6 80 20 144/78 96 10/12/16 06:00 82 24 155/78 95 10/12/16 00:00 95.9 85 18 146/91 99 10/11/16 20:00 80 20 139/91 97 -: 10/12/16 0625 10/12/16 0625 Tubes & Lines: Vas-Cath, [facility] Tubes & Lines Comment PEG, colostomy Physical Exam General Appearance: No Acute Distress, Comfortable Eyes Eye Exam: Pupils Equal Throat Throat Exam: Oral Mucosa [place] & Moist Pulmonary Resp Exam: No Distress, Crackles, Rhonchi, Decreased Bases, Diminished Breath Sounds Cardiology CV Exam: Regular, Normal Sinus Rhythm Gastrointestinal/Abdomen GI Exam: Soft, Non-Tender, Bowel Sounds Present, Positive Bowel Movement, Distended (with colostomy.) Musculoskeletal MS Exam: Joints Intact, Normal Tone Integumentary Skin Exam: Warm, Dry Extremeties Extremities Exam: Pedal Pulses Palpable, Moderate Edema, Pitting Edema, Dependent Edema Neurologic Neuro Exam: Alert, Awake Assessment/Plan Assessment Summary: IMELDA/Acute Renal Failure Electrolyte Assessment: Metabolic Acidosis Problem List: (1) IMELDA (acute kidney injury) Plan: She has been off dialysis since 10/02 (treatment 09/29, 09/30, 10/02), vascath was removed renal function has improved Cr 1.5 Nephrology to follow on PRN bases (2) Status post colostomy Plan: due to ulcerated colon she has significant output also has PEG, tolerating oral feeding GI has signed off (3) COPD (chronic obstructive pulmonary disease) Plan: monitor pulmonary status she is on oxygen via nasal cannula (4) PE (pulmonary thromboembolism) Plan: on heparin pulmonary has evaluated (5) Edema Plan: monitor fluid volume status (6) History of CVA (cerebrovascular accident) Plan: continue supportive care, wound care needs assistance with oral care she has declined since her surgery (7) Essential hypertension Plan: BP acceptable continue medications as ordered (8) Lactic acidosis Plan: corrected (9) Acute respiratory failure Plan: improved Problem Qualifiers (1) COPD (chronic obstructive pulmonary disease): (2) Acute respiratory failure: Qualified Code: J96.00 - Acute respiratory failure, unspecified whether with hypoxia or hypercapnia Chela Ibarra MD Oct 12, 2016 16:58
[2016-10-12 20:00] VITALS: BP 140/67; PULSE 76; RESP 18; TEMP 97.3; O2SAT 96
[2016-10-13] VITALS: BP 148/77; PULSE 80; RESP 18; TEMP 97.2; O2SAT 94
[2016-10-13] MEDS: FOSPHENYTOIN SODIUM 100 MG PE/2 ML VIAL IV SCH ×3 (01:55→18:54)
[2016-10-13] MEDS: PANTOPRAZOLE SODIUM 40 MG VIAL IV PUSH SCH ×2 (03:35→18:56)
[2016-10-13 04:00] VITALS: BP 146/70; PULSE 82; RESP 20; TEMP 97.2; O2SAT 95
[2016-10-13] MEDS: FREE WATER G-TUBE SCH ×4 (06:00→23:06)
[2016-10-13] MEDS: METOCLOPRAMIDE HCL 10 MG/2 ML VIAL IV SCH ×3 (06:17→23:06)
[2016-10-13] MEDS: METOPROLOL TARTRATE 50 MG TAB GT SCH ×3 (06:17→23:00)
[2016-10-13] MEDS: POTASSIUM PHOSPHATE/SODIUM PHOSPHATE 250 MG TAB PO SCH ×4 (06:17→23:07)
[2016-10-13] MEDS: hydrALAZINE HCL 50 MG TAB PO SCH ×3 (06:17→23:05)
[2016-10-13 08:00] VITALS: BP 155/80; PULSE 87; RESP 24; TEMP 97.6; O2SAT 95
[2016-10-13 08:54] LABS: APTT (PATIENT) 46.6 SEC (24.3-30.1)
[2016-10-13] MEDS: MULTIVITAMIN TAB PO SCH (10:22)
[2016-10-13] MEDS: SODIUM CHLORIDE 0.9% FLUSH 5 ML FLUSH IV FLUSH SCH ×2 (10:22→23:06)
[2016-10-13] MEDS: LACTOBACILLUS ACIDOPHILUS TAB PO SCH ×3 (10:22→18:53)
[2016-10-13] MEDS: SODIUM BICARBONATE 650 MG TAB PO SCH ×2 (10:22→23:05)
[2016-10-13] MEDS: NYSTAT/DIPHENHY/LIDO MOUTHWASH (Adult) 120ML SWISH-SWAL SCH ×4 (10:23→21:00)
--- NOTE | 2016-10-13 11:11 | HHI.PR ---
Subjective Subjective Notes Resting in bed Non verbal Objective Vitals/I&O Vital Signs Date Time Temp Pulse Resp B/P Pulse Ox O2 Delivery O2 Flow Rate FiO2 10/13/16 08:00 97.6 87 24 155/80 95 10/11/16 09:35 21 Labs Laboratory Tests Test 10/13/16 08:33 Activated Partial 46.6 Thromboplast Time Cardiovascular: Regular Lungs: Clear Abdomen: Other (colostomy in place---applicance in place without leaks; medial to wound is essentially closed ) Narrative Exam generalized edema A/P Problem List: (1) Status post colostomy (2) Infected decubitus ulcer (3) History of CVA (cerebrovascular accident) (4) COPD (chronic obstructive pulmonary disease) (5) Neurocognitive disorder (6) Essential hypertension Assessment and Plan 61 year old female with large sacral wound; s/p colostomy placement and colostomy revision; now with muliple medication problems including ARF, pulmonary emboli and pancreatitis -Tolerating TF at goal rate -Colostomy in good working function with stool; appliance in place without stool leaking -Continue routine nursing colostomy care -Okay from GS standpoint to transfer to PO or SNF if available -Discussed with Dr. Hale at bedside Attending Note - Dr. Faulkner Colostomy appliance in place and intact Sacral wound continues to heal Port site healed. Discussed with Dr. Hale; as is adamant about not placing in SNF, transfer to [facility] may be more appropriate for now. Nothing further to add from general surgery standpoint. Will sign off; reconsult if needed. The exam, history, and the medical decision-making described in the above note were completed with the assistance of the mid-level provider. I reviewed and agree with the findings presented. I attest that I had a [id number] encounter with the patient on the same day, and personally performed and documented my assessment and findings in the medical record. Problem Qualifiers (1) Infected decubitus ulcer: Qualified Code: L89.95 - Infected decubitus ulcer, unstageable (2) COPD (chronic obstructive pulmonary disease): Ruma Orta Oct 13, 2016 11:11 Zechariah Faulkner MD Oct 13, 2016 23:06
[2016-10-13 12:00] VITALS: BP 150/89; PULSE 102; RESP 28; TEMP 97.4; O2SAT 96
[2016-10-13] MEDS: BETAMETHASONE DIPROPIONATE 0.05% CREAM 15 GM TOPICAL SCH ×2 (13:08→21:00)
[2016-10-13] MEDS: BACITRACIN TOP OINT 15 GM TUBE TOP SCH ×2 (13:09→21:00)
[2016-10-13] MEDS: CALAMINE/PRAMOXINE LOTION 180 ML BTL TOPICAL SCH ×2 (13:09→21:00)
[2016-10-13] MEDS: PETROLATUM 49%/ZINC OXIDE 15% 4 OUNCE TUBE TOPICAL SCH (13:10)
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
[2016-10-13 16:00] VITALS: BP 166/77; PULSE 109; RESP 24; TEMP 98.2; O2SAT 94
[2016-10-13 20:00] VITALS: BP 154/88; PULSE 90; RESP 18; TEMP 98.1; O2SAT 92
[2016-10-13] MEDS: APIXABAN 5 MG TABLET PO SCH (23:06)
[2016-10-14] VITALS (7 sets, daily range): BP systolic 144–176; BP diastolic 81–99; PULSE 82–97; RESP 18–24; TEMP 97.2–98; O2SAT 90–96
[2016-10-14] MEDS: FOSPHENYTOIN SODIUM 100 MG PE/2 ML VIAL IV SCH ×3 (01:28→16:52)
[2016-10-14] MEDS: hydrALAZINE HCL 50 MG TAB PO SCH ×3 (06:00→20:46)
[2016-10-14] MEDS: POTASSIUM PHOSPHATE/SODIUM PHOSPHATE 250 MG TAB PO SCH ×3 (06:00→16:52)
[2016-10-14] MEDS: FREE WATER G-TUBE SCH ×4 (06:00→22:28)
[2016-10-14] MEDS: PANTOPRAZOLE SODIUM 40 MG VIAL IV PUSH SCH ×2 (06:24→15:40)
[2016-10-14] MEDS: METOPROLOL TARTRATE 50 MG TAB GT SCH ×3 (06:24→20:47)
[2016-10-14] MEDS: METOCLOPRAMIDE HCL 10 MG/2 ML VIAL IV SCH ×3 (06:24→20:46)
[2016-10-14 07:04] LABS: HEMATOCRIT 26.1 % (35.0-46.0); MEAN CELL VOLUME 84.1 FL (80.0-100.0); MEAN CORPUSCULAR HEMOGLOBIN 28.3 PG (27.0-34.0); MEAN CORPUSCULAR HGB CONC 33.6 % (32.0-36.0); PLATELET COUNT 231 TH/MM3 (150-450); RED CELL DISTRIBUTION WIDTH 18.6 % (11.6-17.2); REVIEW FLAG FINAL; WHITE BLOOD COUNT 9.3 TH/MM3 (4.0-11.0)
[2016-10-14 08:23] LABS: APTT (PATIENT) 38.7 SEC (24.3-30.1)
[2016-10-14] MEDS: MULTIVITAMIN TAB PO SCH (10:00)
[2016-10-14] MEDS: NYSTAT/DIPHENHY/LIDO MOUTHWASH (Adult) 120ML SWISH-SWAL SCH ×4 (10:00→20:46)
[2016-10-14] MEDS: SODIUM BICARBONATE 650 MG TAB PO SCH ×2 (10:00→20:46)
[2016-10-14] MEDS: APIXABAN 5 MG TABLET PO SCH ×2 (10:01→20:46)
[2016-10-14] MEDS: SODIUM CHLORIDE 0.9% FLUSH 5 ML FLUSH IV FLUSH SCH ×2 (10:01→20:44)
[2016-10-14] MEDS: LACTOBACILLUS ACIDOPHILUS TAB PO SCH ×3 (10:01→16:51)
[2016-10-14] MEDS: PETROLATUM 49%/ZINC OXIDE 15% 4 OUNCE TUBE TOPICAL SCH (10:02)
[2016-10-14] MEDS: BETAMETHASONE DIPROPIONATE 0.05% CREAM 15 GM TOPICAL SCH ×2 (10:02→20:46)
[2016-10-14] MEDS: BACITRACIN TOP OINT 15 GM TUBE TOP SCH ×2 (10:02→20:46)
[2016-10-14] MEDS: CALAMINE/PRAMOXINE LOTION 180 ML BTL TOPICAL SCH ×2 (10:02→20:46)
[2016-10-14] MEDS: FERROUS SULFATE 300 MG /5ML UDC PO SCH (11:47)
--- NOTE | 2016-10-14 14:02 | MG ---
cc: AUDELIA CARPENTER DALIA M.D. Lab No: [id number] Date: Age: 61 Sex: F Awake, drowsy, asleep. Unable to do hyperventilation, only photic. 10/01/2016 EEG showed some phase reversal with sharps over the right central head region. Currently on Cerebyx. DESCRIPTION OF RECORD Overall slowing predominately in the theta frequency, 4.5 to 5 Hz. Some occasional phase reversal seen centrally in a transverse montage as well as in the right frontal central region. No active discharges to suggest active seizures otherwise. EKG looks artifactual. Photic stimulation with some driving response, phase reversals still seen over the frontal central region. IMPRESSION Abnormal EEG with phase reversals seen over the right central frontal region, not continuous. Certainly still could be a focus for epileptogenicity in the patient but not active seizure-like events. Clinical correlation. Dianne Rocha MD DF/ASHLEY /1:49 PM /1:56 PM
--- NOTE | 2016-10-14 14:57 | HHI.HCPN ---
Reason for visit a. To assist with evaluation and management of symptoms including: pain b. To assist medical decision maker(s) with: better understanding of current medical conditions; weighing benefits/burdens of medical treatment options; making medical treatment decisions. Subjective/Interval History Pt was sleeping on my visit. Arouses but goes back to sleep. Had EEG performed. Family/friend interactions Spoke with pt's spouse. Update pt's spouse and labs today. Goals remains the same. Pt's spouse is upset, but more calm this phone conversation. He still feel certain parts of the medical care contributed to 's decline. He insist that I have been the only one speaking with him on pt. Advance Directives Living Will: Never completed Health Care Surrogate: Never completed Durable Power of Medical Billing Specialist: Never completed Objective Vital Signs Date Time Temp Pulse Resp B/P Pulse Ox O2 Delivery O2 Flow Rate FiO2 10/14/16 12:00 97.5 97 24 165/81 96 10/14/16 11:54 96 10/14/16 08:00 98.0 89 24 146/87 96 10/14/16 04:00 97.2 87 18 176/88 95 10/14/16 00:00 97.5 82 18 164/81 95 10/13/16 20:00 98.1 90 18 154/88 92 10/13/16 16:00 98.2 109 24 166/77 94 Intake & Output 10/14/16 10/14/16 07:00 19:00 Intake Total 785 ml 1279 ml Output Total 1520.0 ml 600 ml Balance -735.0 ml 679 ml Intake Oral 0 ml 0 ml IV Total 8 ml 2 ml Tube Feeding 777 ml 677 ml Tube Irrigant 600 ml Output Urine Total 1000 ml 600 ml Stool Total 500 ml Tube Feeding Residual Discard 20.0 ml # Bowel Movements 0 Physical Exam CONSTITUTIONAL/GENERAL: This is an adequately nourished patient,intubated, eyes open, but sleepy today. TUBES/LINES/DRAINS:wound vac, right IJ, lu, tube feedings SKIN: No jaundice, rashes, or lesions. Ecchymoses on upper extremities. No wounds seen anteriorly. Skin temperature appropriate. Not diaphoretic. HEAD: Atraumatic. Normocephalic. EYES: Open,. tracking. No scelera icterus. Fundi not examined. ENT: Hearing grossly normal. Nose without bleeding or purulent drainage. NECK: Trachea midline. Supple, nontender. No palpable thyroid enlargement or nodularity. CARDIOVASCULAR: Regular rate and rhythm without murmurs, gallops, or rubs. No JVD. Peripheral pulses symmetric. RESPIRATORY/CHEST: Symmetric, decreased breath sound bilaterally. expiratory wheezing heard. GASTROINTESTINAL: Abdomen soft, non-tender, on palpation. BS present. Colostomy bag. GENITOURINARY: Without palpable bladder distension. MUSCULOSKELETAL: edematous upper and lower ext. LYMPHATICS: No palpable cervical or supraclavicular adenopathy. NEUROLOGICAL:Opens eyes, sleepy, able to say hi back then goes back to sleep. Diagnostic Tests Laboratory Laboratory Tests Test 10/12/16 10/12/16 10/13/16 10/14/16 06:25 07:10 08:33 06:30 White Blood Count 7.9 TH/MM3 9.3 TH/MM3 (4.0-11.0) (4.0-11.0) Red Blood Count 3.05 MIL/MM3 3.10 MIL/MM3 (4.00-5.30) (4.00-5.30) Hemoglobin 8.6 GM/DL 8.8 GM/DL (11.6-15.3) (11.6-15.3) Hematocrit 26.3 % 26.1 % (35.0-46.0) (35.0-46.0) Mean Corpuscular Volume 86.2 FL 84.1 FL (80.0-100.0) (80.0-100.0) Mean Corpuscular Hemoglobin 28.2 PG 28.3 PG (27.0-34.0) (27.0-34.0) Mean Corpuscular Hemoglobin 32.7 % 33.6 % Concent (32.0-36.0) (32.0-36.0) Red Cell Distribution Width 18.6 % 18.6 % (11.6-17.2) (11.6-17.2) Platelet Count 203 TH/MM3 231 TH/MM3 (150-450) (150-450) Mean Platelet Volume 8.6 FL 8.7 FL (7.0-11.0) (7.0-11.0) Neutrophils (%) (Auto) 72.6 % (16.0-70.0) Lymphocytes (%) (Auto) 9.0 % (9.0-44.0) Monocytes (%) (Auto) 7.8 % (0.0-8.0) Eosinophils (%) (Auto) 9.7 % (0.0-4.0) Basophils (%) (Auto) 0.9 % (0.0-2.0) Neutrophils # (Auto) 5.7 TH/MM3 (1.8-7.7) Lymphocytes # (Auto) 0.7 TH/MM3 (1.0-4.8) Monocytes # (Auto) 0.6 TH/MM3 (0-0.9) Eosinophils # (Auto) 0.8 TH/MM3 (0-0.4) Basophils # (Auto) 0.1 TH/MM3 (0-0.2) CBC Comment AUTO DIFF Differential Total Cells 100 Counted Neutrophils % (Manual) 71 % (16-70) Band Neutrophils % 4 % (0-6) Lymphocytes % 9 % (9-44) Monocytes % 10 % (0-8) Eosinophils % 6 % (0-4) Neutrophils # (Manual) 5.9 TH/MM3 (1.8-7.7) Differential Comment FINAL DIFF MANUAL Platelet Estimate NORMAL (NORMAL) Platelet Morphology Comment NORMAL (NORMAL) Sodium Level 144 MEQ/L (136-145) Potassium Level 3.6 MEQ/L (3.5-5.1) Chloride Level 113 MEQ/L (98-107) Carbon Dioxide Level 21.7 MEQ/L (21.0-32.0) Anion Gap 9 MEQ/L (5-15) Blood Urea Nitrogen 38 MG/DL (7-18) Creatinine 1.50 MG/DL (0.50-1.00) Estimat Glomerular Filtration 36 ML/MIN (>89) Rate Random Glucose 124 MG/DL (74-106) Calcium Level 8.0 MG/DL (8.5-10.1) Magnesium Level 1.8 MG/DL (1.5-2.5) Prealbumin 17 MG/DL (20-40) Activated Partial 41.5 SEC 46.6 SEC Thromboplast Time (24.3-30.1) (24.3-30.1) Test 10/14/16 07:48 Activated Partial 38.7 SEC Thromboplast Time (24.3-30.1) Result Diagram: 10/14/16 0630 10/12/16 0625 Imaging Last Impressions Chest X-Ray 10/06/16 0000 Signed Impressions: Service Date/Time: Thursday, October 06, 2016 23:04 - CONCLUSION: 1. Cardiomegaly and findings of congestive heart failure. Enlarging bilateral effusions Reed Rico MD Gastrostomy Tube Change 10/01/16 0000 Signed Impressions: Service Date/Time: Saturday, October 01, 2016 13:54 - CONCLUSION: 1. Uncomplicated gastrojejunostomy tube placement Reed Rico MD Head CT 09/29/16 0000 Signed Impressions: Service Date/Time: Thursday, September 29, 2016 12:54 - CONCLUSION: 1. No significant change compared to 09/25/16. 2. Extensive bilateral encephalomalacia (right worse than left) predominantly within the frontal lobes and parietal occipital lobes as well as the right temporal lobe. 3. Extensive periventricular and subcortical white matter small vessel ischemic changes bilaterally. 4. Scattered old lacunar infarcts within the bilateral basal ganglia. 5. Stable ventriculomegaly. 6. No acute hemorrhage, midline shift , or extraaxial fluid collections. Ernie Mathis MD Abdomen/Pelvis CT 09/29/16 0000 Signed Impressions: Service Date/Time: Thursday, September 29, 2016 13:01 - CONCLUSION: 1. Large hernia adjacent to the colostomy without abscess. 2. There is no free air. There is no evidence for an obstruction. 3. There is increasing induration around the pancreas. Correlation with laboratory values is suggested. Vinay Avalos MD FACR Upper Extremity Ultrasound 09/26/16 Signed Impressions: Service Date/Time: Monday, September 26, 2016 20:17 - CONCLUSION: No DVT or superficial venous thrombosis is identified within either upper extremity. Please note that the left cephalic vein is not visualized. Aidan Churchill MD CT Angiography 09/26/16 Signed Impressions: Service Date/Time: Monday, September 26, 2016 15:12 - CONCLUSION: 1. Several small pulmonary emboli in the right upper lobe. 2. Multiple bilateral pulmonary parenchymal nodules. Both neoplastic and inflammatory etiologies are in the differential diagnosis. 3. Mildly prominent right hilar lymph node, likely reactive. 4. Bilateral lower lobe atelectasis and small left pleural effusion. 5. Possible mass in the medial gastric fundus. Rony Espinoza MD Lower Extremity Ultrasound 09/25/16 1622 Signed Impressions: Service Date/Time: September 17:26 - CONCLUSION: No DVT of the left lower extremity. Aidan Felipe MD [facility] 09/22/16 1702 Signed Impressions: Service Date/Time: Thursday, September 22, 2016 15:50 - CONCLUSION: 1. Unsuccessful port removal. Reed Rico MD Abdomen X-Ray 09/16/16 0000 Signed Impressions: Service Date/Time: Friday, September 16, 2016 16:55 - CONCLUSION: G-tube in place in the body the stomach properly positioned David Rivera MD Assessment and Plan Disease Oriented Problem List: (1) Acute respiratory failure Comment: PE, pulmonary nodules, HCAP, worsening consolidation of the left. (2) Pulmonary embolism (3) Severe sepsis (4) COPD (chronic obstructive pulmonary disease) (5) Pancreatitis (6) IMEDLA (acute kidney injury) Comment: HD (7) Infected decubitus ulcer Comment: Diverting colostomy in 07/15/16 for sacral decubitus ulcer. Revision 08/13/[address] Faulkner. (8) History of CVA (cerebrovascular accident) Symptom Scale: (1) Dyspnea Pertinent Non-Medical Issues Psychosocial: Spiritual: Legal: Ethical issues impacting care: Important Contacts Spouse [phone] DCF [phone] of abdomen and pelvis showed evidence of acute pancreatitis and large perileostomy hernia. Long hospital course of encephalopathy, sacral decubitis ulcer requriing diverting colostomy and revision. 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 Has had a very long hospital course. Code Status: Full Code Plan == capacity: does not have capacity to make medical decisions. == Adi care decision maker: (proxy) . I have consulted case management as there is documentation of neglect 2/. Per case management documented / " CM CONSULTED TO LOCATE/RESEARCH A PAST COMPLAINT "WITH THE DCF AND ALSO CONFIRM DECISION MAKER. CM THE DCF AT [phone] AND SPOKE WITH CESARELAINE RHOADESKATHRYN. THE CASE NUMBER WAS [id number]. THE INVESTIGATION IS CLOSED HOWEVER IT REVEALED THAT THE PATIENT WAS SELF NEGLIGENT.THERE WAS NO EVIDENCE TO SUPPORT THAT THE OR ANY OTHER FAMILY MEMBER WAS NEGLIGENT. CM WILL NOTIFY PALLIATIVE CARE OF THE ABOVE CONVERSATION." TEENA AJ RN " would be decision maker. == pain - denied pain today. == Goals Called pt's spouse. Spouse is more calm today. Although I have reviewed it with him, pt's spouse continue to feel certain aspects of the medical care contributed to patient's decline. He express strong feelings of frustration, and the lack of communication. He insists I have been the only talking to him. Gaols remains the same. . Goals of care remains aggressive, unlikely to change for the time being, under current circumstance. == Palliative care will continue to follow as pt clinical condition evolves. It seems goals of care is well establish for now, so we will follow peripherally. Time Spent Total Floor Time (mins): 35 Face to Face Time (mins): 20 Attestation To help prompt me to consider important information that might be impacting today's encounter and assessment, information from prior notes written by myself or my colleagues may have been "brought forward" into today's note. My signature on this note, however, is an attestation that I personally performed the exam, history, and/or decision-making noted today, and, unless otherwise indicated, the interactions with patient, family, and staff as well as the review of records all occurred today. I also attest that the listed assessment and stated plan reflect my best clinical judgment today based on the combination of historical information, prior notes, and today's exam/ interactions. When time spent is documented, it refers only to time spent today by the signer, or if indicated, combined time spent today by collaborating physician/nurse practitioner. Teja Espinosa MD Oct 14, 2016 14:57
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
--- NOTE | 2016-10-14 15:19 | HHI.PR ---
Subjective Remarks f/u for sz's -sz's seen or reported on cerbyx Objective Vital Signs Date Time Temp Pulse Resp B/P Pulse Ox O2 Delivery O2 Flow Rate FiO2 10/14/16 12:00 97.5 97 24 165/81 96 10/14/16 11:54 96 10/14/16 08:00 98.0 89 24 146/87 96 10/14/16 04:00 97.2 87 18 176/88 95 10/14/16 00:00 97.5 82 18 164/81 95 10/13/16 20:00 98.1 90 18 154/88 92 10/13/16 16:00 98.2 109 24 166/77 94 I/O 10/13/16 10/13/16 10/13/16 10/14/16 10/14/16 10/14/16 07:00 15:00 23:00 07:00 15:00 23:00 Intake Total 0 ml 381 ml 404 ml 1279 ml Output Total 250 ml 1050 ml 20.0 ml 1500 ml 600 ml Balance -250 ml -1050 ml 361.0 ml -1096 ml 679 ml Intake Oral 0 ml 0 ml 0 ml 0 ml IV Total 2 ml 6 ml 2 ml Tube Feeding 379 ml 398 ml 677 ml Tube Irrigant 600 ml Output Urine Total 250 ml 1050 ml 0 ml 1000 ml 600 ml Stool Total 500 ml Tube Feeding Residual Discard 20.0 ml # Bowel Movements 2 0 awake and tries to follow looks encephalopathic hypophonic perrla w/d pain. Result Diagram: 10/14/16 0630 10/12/16 0625 Other Results eeg today some phase reversals centrally no active sz's. Assessment and Plan Assessment and Plan sz -on cerebyx 100 q8 check level keep therapeutic around 10 at least. sz precautions,ativan only for witnessed prolonged sz. Dianne Rocha MD Oct 14, 2016 15:18
[2016-10-15] VITALS (7 sets, daily range): BP systolic 105–177; BP diastolic 65–94; PULSE 85–98; RESP 20–24; TEMP 97–98; O2SAT 90–100
[2016-10-15] MEDS: POTASSIUM PHOSPHATE/SODIUM PHOSPHATE 250 MG TAB PO SCH ×4 (00:08→16:50)
[2016-10-15] MEDS: FOSPHENYTOIN SODIUM 100 MG PE/2 ML VIAL IV SCH ×3 (00:08→16:50)
[2016-10-15] MEDS: PANTOPRAZOLE SODIUM 40 MG VIAL IV PUSH SCH ×2 (03:35→14:56)
[2016-10-15] MEDS: FREE WATER G-TUBE SCH ×3 (05:07→16:50)
[2016-10-15] MEDS: hydrALAZINE HCL 50 MG TAB PO SCH ×3 (05:08→22:27)
[2016-10-15] MEDS: METOCLOPRAMIDE HCL 10 MG/2 ML VIAL IV SCH ×3 (05:09→22:27)
[2016-10-15] MEDS: METOPROLOL TARTRATE 50 MG TAB GT SCH ×3 (05:39→22:27)
[2016-10-15 06:05] LABS: APTT (PATIENT) 38.5 SEC (24.3-30.1)
[2016-10-15] MEDS: FERROUS SULFATE 300 MG /5ML UDC PO SCH (08:01)
[2016-10-15] MEDS: SODIUM BICARBONATE 650 MG TAB PO SCH ×2 (08:01→22:27)
[2016-10-15] MEDS: LACTOBACILLUS ACIDOPHILUS TAB PO SCH ×3 (08:01→16:50)
[2016-10-15] MEDS: APIXABAN 5 MG TABLET PO SCH ×2 (08:01→22:27)
[2016-10-15] MEDS: SODIUM CHLORIDE 0.9% FLUSH 5 ML FLUSH IV FLUSH SCH ×2 (08:01→22:28)
[2016-10-15] MEDS: PETROLATUM 49%/ZINC OXIDE 15% 4 OUNCE TUBE TOPICAL SCH (08:02)
[2016-10-15] MEDS: MULTIVITAMIN TAB PO SCH (08:02)
[2016-10-15] MEDS: BETAMETHASONE DIPROPIONATE 0.05% CREAM 15 GM TOPICAL SCH ×2 (08:02→22:28)
[2016-10-15] MEDS: CALAMINE/PRAMOXINE LOTION 180 ML BTL TOPICAL SCH ×2 (08:02→22:27)
[2016-10-15] MEDS: BACITRACIN TOP OINT 15 GM TUBE TOP SCH ×2 (08:03→22:28)
[2016-10-15] MEDS: NYSTAT/DIPHENHY/LIDO MOUTHWASH (Adult) 120ML SWISH-SWAL SCH ×4 (08:03→22:26)
[2016-10-15] MEDS: RESP: ALBUTEROL 2.5 MG/IPRATROPIUM 0.5 MG NEB (PRN) INH (11:08)
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
[2016-10-16] VITALS: BP 133/86; PULSE 78; RESP 20; TEMP 97.3; O2SAT 97
[2016-10-16] MEDS: FOSPHENYTOIN SODIUM 100 MG PE/2 ML VIAL IV SCH ×2 (00:23→09:18)
[2016-10-16 04:00] VITALS: BP 149/84; PULSE 80; RESP 20; TEMP 97.2; O2SAT 95
[2016-10-16] MEDS: PANTOPRAZOLE SODIUM 40 MG VIAL IV PUSH SCH ×2 (05:10→15:58)
[2016-10-16] MEDS: POTASSIUM PHOSPHATE/SODIUM PHOSPHATE 250 MG TAB PO SCH ×5 (05:18→23:13)
[2016-10-16] MEDS: METOCLOPRAMIDE HCL 10 MG/2 ML VIAL IV SCH ×3 (05:18→21:15)
[2016-10-16] MEDS: hydrALAZINE HCL 50 MG TAB PO SCH ×3 (05:18→21:16)
[2016-10-16] MEDS: FREE WATER G-TUBE SCH ×5 (05:18→23:12)
[2016-10-16] MEDS: METOPROLOL TARTRATE 50 MG TAB GT SCH ×3 (06:19→23:13)
[2016-10-16 08:00] VITALS: BP 160/72; PULSE 75; RESP 20; TEMP 96.2; O2SAT 93
[2016-10-16] MEDS: LACTOBACILLUS ACIDOPHILUS TAB PO SCH ×3 (09:00→17:31)
[2016-10-16] MEDS: PETROLATUM 49%/ZINC OXIDE 15% 4 OUNCE TUBE TOPICAL SCH (09:00)
[2016-10-16] MEDS: FERROUS SULFATE 300 MG /5ML UDC PO SCH (09:17)
[2016-10-16] MEDS: APIXABAN 5 MG TABLET PO SCH ×2 (09:18→21:16)
[2016-10-16] MEDS: MULTIVITAMIN TAB PO SCH (09:18)
[2016-10-16] MEDS: NYSTAT/DIPHENHY/LIDO MOUTHWASH (Adult) 120ML SWISH-SWAL SCH ×4 (09:18→21:00)
[2016-10-16] MEDS: SODIUM BICARBONATE 650 MG TAB PO SCH ×2 (09:19→21:16)
[2016-10-16] MEDS: SODIUM CHLORIDE 0.9% FLUSH 5 ML FLUSH IV FLUSH SCH ×2 (09:20→21:00)
[2016-10-16] MEDS: BETAMETHASONE DIPROPIONATE 0.05% CREAM 15 GM TOPICAL SCH ×2 (09:31→21:00)
[2016-10-16] MEDS: BACITRACIN TOP OINT 15 GM TUBE TOP SCH ×2 (09:31→21:00)
[2016-10-16] MEDS: CALAMINE/PRAMOXINE LOTION 180 ML BTL TOPICAL SCH ×2 (09:32→21:00)
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
--- NOTE | 2016-10-16 11:32 | MB ---
cc: Mya HERMOSILLO M.D. DATE OF CONSULTATION 10/13/2016 REASON FOR CONSULTATION Ms. Garcia is a 60 year-old white female who I first saw September [address] scan. She has been hospitalized here since May 31 with a very complex history including multiple infections and now basically has been stabilized and transferred to the floor after a prolonged critical care stay. Immediate problems are that she had pulmonary embolism earlier in the course and has been on IV heparin. She also has continuing problems with large decubitus ulcers on her sacrum. She has had a diverting colostomy to prevent further infection from stool. She is very debilitated non-communicative at this point, but comfortable. PHYSICAL EXAM She is currently afebrile with blood pressures in the 150-160/70 range, heart rate is 80-90 and her O2 saturations are in the mid 90s, 93-96%. CHEST: Her chest is minimally congested. CARDIAC: She has no harsh murmur. ABDOMEN: Obese, but soft. EXTREMITIES: She has some chronic edema. Her last chest x-ray was on 10/06 at which time she had an enlarged heart and small effusions. Mrs. Garcia has been very seriously and chronically ill. I saw her about an abnormal CT scan and I believe she had pulmonary infection, probably with small septic emboli. She also had some blood clots due to immobility for a prolonged period of time in her right upper lobe and has been on heparin. I spoke to Dr. Landaverde today and my suggestion was that we switch her to oral Eliquis. She does not seem to have any obvious bleeding risks at the present time and I believe she will need to be anticoagulated indefinitely because she will not be able to be mobilized at least in the condition that she is currently in. Once her condition has improved, a follow-up CT scan might be considered to see if the pulmonary emboli have cleared completely and to see if the small nodules that are very likely inflammatory and infectious have cleared. I will not continue to see her regularly at this point. I have no further recommendations from a treatment standpoint, but if problems arose in the future, I would be happy to see her back. Please reconsult at that time. R. MD RYLAN Swift/DJL /6:02 PM /11:19 AM
[2016-10-16 12:00] VITALS: BP 136/76; PULSE 72; RESP 20; TEMP 97; O2SAT 94
[2016-10-16] MEDS: PHENYTOIN SODIUM 100 MG CAP PO SCH ×2 (13:44→21:16)
[2016-10-16 16:00] VITALS: BP 156/93; PULSE 73; RESP 18; TEMP 97; O2SAT 93
--- NOTE | 2016-10-16 18:11 | HHI.PR ---
Addendum To [facility] Progress Not Reason for addendum: Additonal documentation (RN called that patient pulled out central line. They are able to get peripheral line access. We'll DC central line for now. ) (Elsi Jaime) Elsi Jaime Oct 16, 2016 18:11 Nuris Hale MD Oct 23, 2016 12:58
[2016-10-16] MEDS: CETIRIZINE HCL SYRUP 10 MG/10 ML UDC PO SCH (19:01)
[2016-10-16 20:00] VITALS: BP 137/62; PULSE 65; RESP 22; TEMP 96.4; O2SAT 96
[2016-10-17] VITALS (8 sets, daily range): BP systolic 118–135; BP diastolic 58–82; PULSE 68–94; RESP 20–24; TEMP 96.6–97.8; O2SAT 90–96
[2016-10-17] MEDS: METOCLOPRAMIDE HCL 10 MG/2 ML VIAL IV SCH ×3 (04:31→21:09)
[2016-10-17] MEDS: PANTOPRAZOLE SODIUM 40 MG VIAL IV PUSH SCH ×2 (04:31→16:43)
[2016-10-17] MEDS: FREE WATER G-TUBE SCH ×4 (04:31→23:09)
[2016-10-17] MEDS: PHENYTOIN SODIUM 100 MG CAP PO SCH ×3 (04:32→21:09)
[2016-10-17] MEDS: hydrALAZINE HCL 50 MG TAB PO SCH ×3 (04:32→21:09)
[2016-10-17] MEDS: POTASSIUM PHOSPHATE/SODIUM PHOSPHATE 250 MG TAB PO SCH ×4 (04:32→23:10)
[2016-10-17] MEDS: METOPROLOL TARTRATE 50 MG TAB GT SCH ×3 (05:48→23:10)
[2016-10-17 07:48] LABS: HEMATOCRIT 24.5 % (35.0-46.0); MEAN CELL VOLUME 84.8 FL (80.0-100.0); MEAN CORPUSCULAR HEMOGLOBIN 28.5 PG (27.0-34.0); MEAN CORPUSCULAR HGB CONC 33.6 % (32.0-36.0); PLATELET COUNT 228 TH/MM3 (150-450); RED BLOOD COUNT 2.88 MIL/MM3 (4.00-5.30); RED CELL DISTRIBUTION WIDTH 19.9 % (11.6-17.2); REVIEW FLAG FINAL; WHITE BLOOD COUNT 9.5 TH/MM3 (4.0-11.0)
[2016-10-17 07:53] LABS: APTT (PATIENT) 38.3 SEC (24.3-30.1)
[2016-10-17] MEDS: LACTOBACILLUS ACIDOPHILUS TAB PO SCH ×3 (09:00→17:52)
[2016-10-17] MEDS: NYSTAT/DIPHENHY/LIDO MOUTHWASH (Adult) 120ML SWISH-SWAL SCH ×4 (09:08→21:10)
[2016-10-17] MEDS: FERROUS SULFATE 300 MG /5ML UDC PO SCH (09:08)
[2016-10-17] MEDS: APIXABAN 5 MG TABLET PO SCH ×2 (09:09→21:09)
[2016-10-17] MEDS: MULTIVITAMIN TAB PO SCH (09:09)
[2016-10-17] MEDS: CETIRIZINE HCL SYRUP 10 MG/10 ML UDC PO SCH (09:09)
[2016-10-17] MEDS: SODIUM BICARBONATE 650 MG TAB PO SCH ×2 (09:09→21:09)
[2016-10-17] MEDS: BETAMETHASONE DIPROPIONATE 0.05% CREAM 15 GM TOPICAL SCH ×2 (09:12→21:00)
[2016-10-17] MEDS: CALAMINE/PRAMOXINE LOTION 180 ML BTL TOPICAL SCH ×2 (09:12→21:00)
[2016-10-17] MEDS: PETROLATUM 49%/ZINC OXIDE 15% 4 OUNCE TUBE TOPICAL SCH (09:12)
[2016-10-17] MEDS: BACITRACIN TOP OINT 15 GM TUBE TOP SCH ×2 (09:12→21:00)
[2016-10-17] MEDS: SODIUM CHLORIDE 0.9% FLUSH 5 ML FLUSH IV FLUSH SCH ×2 (09:13→21:00)
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
[2016-10-17] MEDS: RESP: ALBUTEROL 2.5 MG/IPRATROPIUM 0.5 MG NEB (PRN) INH (14:24)
[2016-10-17] MEDS ORDERED: IOHEXOL 350 MG/ML 50 ML BTL (for RAD DIAG) G-TUBE ONE (16:14)
--- NOTE | 2016-10-17 16:25 | PD.RAD ---
Post Procedure Progress Note Pre Procedure Diagnosis: (1) Severe sepsis Post Procedure Diagnosis: (1) Severe sepsis Procedure Date: Oct 17, 2016 Supervising Radiologist: Aidan Dumont Proceduralist/Assist: Lanette Grande RT(R) Anesthesia: Local, Conscious Sedation Plan of Activity Patient to Unit: Nursing Unit Patient Condition: Fair See PACS Report for procedural detail/treatment Feeding Tube Gastro/Jejunostomy Replacement Occitan: 22 Additional Detail: Transgastric J tube Aidan Dumont MD Oct 17, 2016 16:25
--- NOTE | 2016-10-17 17:18 | RADRPT ---
EXAM DATE/TIME: 10/17/2016 15:38 [place] COMPARISON: No previous studies available for comparison. INDICATIONS : Patient with history of dysphagia in need of GJ tube exchange. MEDICAL HISTORY : Cerebral aneurysm, Seizures, HTN, Hepatitis C, Left hemiparesis, HLD, Emphysema, CVA, Migraines, Asth ma, COPD, MRSA SURGICAL HISTORY : Brain aneurysm repair, G-tube placement, Tracheostomy ENCOUNTER: Subsequent ACUITY: 4 - 6 months PAIN SCORE: 0/10 FLUORO TIME: 6.9 minutes SEDATION TIME: 15 minutes CONTRAST: 30 cc Omnipaque (iohexol) 350 MEDICATION(S): 1.) 25 mcg fentanyl (Sublimaze) IV DEVICE(S): 1.) 22 [place] Transgastric tube PROCEDURE : 1. Fluoroscopically guided gastrojejunostomy tube exchange. 2. Conscious sedation with continuous EKG and oximetry monitoring. The risks, benefits and alternatives to the procedure were explained and verbal and written consent w as obtained. The site was prepped in sterile fashion. Full sterile technique was used, including ca p, mask, sterile gloves and gown and a large sterile sheet. Hand hygiene and 2% chlorhexidine and/or betadine/alcohol prep was utilized per protocol for cutaneous antisepsis. The skin and subcutaneous tissues were infiltrated with local anesthetic solution. With fluoroscopic guidance a guidewire was passed through the previous gastrojejunostomy tube and a f resh tube was placed over the guidewire. The balloon was inflated with appropriate volume of saline. Injection of positive contrast demonstrates good position of the gastric and jejunal lumens of the tube. Conscious sedation was performed with the prescribed dosages and duration as above. The patient alma ated the procedure well and there were no complications. EKG and oximetry remained stable throughout the procedure. The patient was sent to post anesthesia recovery in stable condition. CONCLUSION: Uncomplicated gastrojejunostomy tube exchange as above. Aidan Dumont MD on October 17, 2016 at 17:16 Board Certified Radiologist. This report was verified electronically.
[2016-10-18] VITALS (9 sets, daily range): BP systolic 98–116; BP diastolic 58–72; PULSE 77–96; RESP 20–36; TEMP 97.2–98.7; O2SAT 92–97
[2016-10-18] MEDS: PANTOPRAZOLE SODIUM 40 MG VIAL IV PUSH SCH ×2 (04:22→15:05)
[2016-10-18] MEDS: FREE WATER G-TUBE SCH ×4 (04:54→23:07)
[2016-10-18] MEDS: POTASSIUM PHOSPHATE/SODIUM PHOSPHATE 250 MG TAB PO SCH ×4 (04:55→23:47)
[2016-10-18] MEDS: hydrALAZINE HCL 50 MG TAB PO SCH ×3 (04:55→22:59)
[2016-10-18] MEDS: METOCLOPRAMIDE HCL 10 MG/2 ML VIAL IV SCH ×3 (04:56→22:59)
[2016-10-18] MEDS: PHENYTOIN SODIUM 100 MG CAP PO SCH ×3 (04:56→22:59)
[2016-10-18] MEDS: METOPROLOL TARTRATE 50 MG TAB GT SCH ×3 (05:50→22:59)
[2016-10-18 07:02] LABS: APTT (PATIENT) 42.1 SEC (24.3-30.1)
[2016-10-18] MEDS ORDERED: FUROSEMIDE 40 MG/4 ML VIAL ONE (11:38)
[2016-10-18] MEDS ORDERED: methylPREDNISolone SOD SUCC 125 MG/2 ML VIAL ONE (11:48)
[2016-10-18 11:50] LABS: BLOOD GAS BASE EXCESS -3.5 mmol/L (-2-2); BLOOD GAS CARBOXYHEMOGLOBIN 1.7 % (0-4); BLOOD GAS HCO3 21 mmol/L (22-26); BLOOD GAS O2 HGB SATURATION 92 % (90-100); BLOOD GAS OXYGEN CONTENT 10.1 Vol % (12.0-20.0); BLOOD GAS PCO2 35 mmHg (38-42); BLOOD GAS PO2 74 mmHg (61-120); BLOOD GAS TOTAL HGB 7.7 G/DL (12.0-16.0); CRITICAL VALUE NO; DRAW SITE RT RADIAL; FIO2 21 %; TEMP CORR TO 98.6
[2016-10-18 11:51] LABS: NUMBER OF ARTERIAL PUNCTURES 1; STAT YES; ULNAR PULSE PRESENT
[2016-10-18] MEDS: SODIUM BICARBONATE 650 MG TAB PO SCH ×2 (11:53→22:59)
[2016-10-18] MEDS: CETIRIZINE HCL SYRUP 10 MG/10 ML UDC PO SCH (11:53)
[2016-10-18] MEDS: MULTIVITAMIN TAB PO SCH (11:53)
[2016-10-18] MEDS: FERROUS SULFATE 300 MG /5ML UDC PO SCH (11:54)
[2016-10-18] MEDS: APIXABAN 5 MG TABLET PO SCH ×2 (11:54→23:00)
[2016-10-18] MEDS: LACTOBACILLUS ACIDOPHILUS TAB PO SCH ×3 (11:55→18:24)
[2016-10-18] MEDS: RESP: ALBUTEROL 2.5 MG/IPRATROPIUM 0.5 MG NEB (PRN) INH (11:55)
[2016-10-18] MEDS: NYSTAT/DIPHENHY/LIDO MOUTHWASH (Adult) 120ML SWISH-SWAL SCH ×4 (11:56→23:00)
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
[2016-10-18] MEDS ORDERED: diphenhydrAMINE HCL 25 MG CAP PO PRN (12:15)
[2016-10-18] MEDS ORDERED: FUROSEMIDE 20 MG/2 ML VIAL IV ONE (12:15)
[2016-10-18] MEDS ORDERED: SODIUM CHLOR 0.9% 250 ML INJ 250 ML IV ONE (12:15)
[2016-10-18] MEDS ORDERED: RESP: ALBUTEROL 2.5 MG/IPRATROPIUM 0.5 MG NEB (SCH) NEB ONE (13:00)
[2016-10-18] MEDS ORDERED: methylPREDNISolone SOD SUCC 125 MG/2 ML VIAL IV ONE (13:00)
[2016-10-18] MEDS ORDERED: FUROSEMIDE 40 MG/4 ML VIAL IV PUSH ONE (13:00)
[2016-10-18 13:03] LABS: AUTOMATED NEUTROPHIL # 6.5 TH/MM3 (1.8-7.7); BASOPHIL # 0.1 TH/MM3 (0-0.2); BASOPHIL % 0.7 % (0.0-2.0); EOSINOPHIL # 0.8 TH/MM3 (0-0.4); EOSINOPHIL % 8.1 % (0.0-4.0); HEMATOCRIT 22.1 % (35.0-46.0); HEMO FLAGS DIFF FINAL; LYMPH % 17.7 % (9.0-44.0); LYMPHOCYTE # 1.8 TH/MM3 (1.0-4.8); MEAN CELL VOLUME 85.2 FL (80.0-100.0); MEAN CORPUSCULAR HEMOGLOBIN 29.3 PG (27.0-34.0); MEAN CORPUSCULAR HGB CONC 34.5 % (32.0-36.0); NEUT % 65.5 % (16.0-70.0); PLATELET COUNT 285 TH/MM3 (150-450); RED CELL DISTRIBUTION WIDTH 20.1 % (11.6-17.2); WHITE BLOOD COUNT 9.9 TH/MM3 (4.0-11.0)
--- NOTE | 2016-10-18 13:30 | RADRPT ---
EXAM DATE/TIME: 10/18/2016 12:00 [facility] COMPARISON: No previous studies available for comparison. INDICATIONS : Shortness of breath. MEDICAL HISTORY : Hypertension. Chronic obstructive pulmonary disease. Asthma. SURGICAL HISTORY : None. ENCOUNTER: Initial ACUITY: 1 day PAIN SCORE: Non-responsive. LOCATION: Bilateral chest FINDINGS: Single AP view of the chest. Left-sided Odddpz-e-Oszo remains in place. Hazy parenchymal opacity at t he left lung base indicating possible mild consolidation. Lungs otherwise clear. No evidence of pleur al effusion or pneumothorax. CONCLUSION: Mild left lower lung consolidation may represent residua of opacity identified on the prior study of 10/06/2016.. No evidence of pleural effusion. Rony Espinoza MD on October 18, 2016 at 13:27 Board Certified Radiologist. This report was verified electronically.
[2016-10-18 13:36] LABS: ALKALINE PHOSPHATASE 153 U/L (45-117); ALT (GPT) 22 U/L (10-53); ANION GAP 9 MEQ/L (5-15); AST (GOT) 20 U/L (15-37); BICARBONATE 24.9 MEQ/L (21.0-32.0); BLOOD UREA NITROGEN 36 MG/DL (7-18); CHLORIDE 110 MEQ/L (98-107); GLOMERULAR FILTRATION RATE 43 ML/MIN (>89); MAGNESIUM 1.9 MG/DL (1.5-2.5); SODIUM (NA) 144 MEQ/L (136-145); TOTAL BILIRUBIN ADULT 0.3 MG/DL (0.2-1.0)
[2016-10-18 13:41] LABS: CREATINE KINASE 16 U/L (26-192)
[2016-10-18 13:43] LABS: POTASSIUM 2.4 MEQ/L (3.5-5.1)
[2016-10-18] MEDS ORDERED: POTASSIUM CL 40 MEQ/30 ML LIQ UDC PO ONE (15:00)
[2016-10-18] MEDS: SODIUM CHLORIDE 0.9% FLUSH 5 ML FLUSH IV FLUSH SCH ×2 (15:00→22:59)
[2016-10-18] MEDS: BACITRACIN TOP OINT 15 GM TUBE TOP SCH ×2 (15:01→23:02)
[2016-10-18] MEDS: PETROLATUM 49%/ZINC OXIDE 15% 4 OUNCE TUBE TOPICAL SCH (15:02)
[2016-10-18] MEDS: CALAMINE/PRAMOXINE LOTION 180 ML BTL TOPICAL SCH ×2 (15:02→23:01)
[2016-10-18] MEDS: BETAMETHASONE DIPROPIONATE 0.05% CREAM 15 GM TOPICAL SCH ×2 (15:02→23:01)
[2016-10-18] MEDS: POTASSIUM CHLOR 20 MEQ PREMIX 100 ML IV SCH ×4 (15:08→23:07)
--- NOTE | 2016-10-18 16:32 | EKG ---
Date Performed: 10/18/2016 Time Performed: 11:49:20 PTAGE: 61 years EKG: Sinus rhythm with PAC(s) Anterolateral T wave changes are nonspecific Borderline ECG NO PREVIOUS TRACING DOCTOR: Yovani Alexis Interpretating Date/Time 10/18/2016 16:31:25
[2016-10-18 18:17] LABS: BLOOD GAS BASE EXCESS -4.4 mmol/L (-2-2); BLOOD GAS CARBOXYHEMOGLOBIN 1.7 % (0-4); BLOOD GAS HCO3 21 mmol/L (22-26); BLOOD GAS O2 HGB SATURATION 96 % (90-100); BLOOD GAS OXYGEN CONTENT 10.7 Vol % (12.0-20.0); BLOOD GAS PCO2 41 mmHg (38-42); BLOOD GAS PO2 117 mmHg (61-120); BLOOD GAS TOTAL HGB 7.8 G/DL (12.0-16.0); CRITICAL VALUE NO; DRAW SITE RT RADIAL; LITER FLOW 2 L/M; NUMBER OF ARTERIAL PUNCTURES 1; OXYGEN DEVICE NASAL CANNULA; STAT NO; TEMP CORR TO 98.6; ULNAR PULSE PRESENT
--- NOTE | 2016-10-18 22:57 | RADRPT ---
EXAM DATE/TIME: 10/18/2016 21:56 [facility] COMPARISON: No previous studies available for comparison. INDICATIONS : Bilateral arm edema. MEDICAL HISTORY : Aneurysm, intracranial. Hypercholesterolemia. Emphysema. CVA. Seizures. Migraines. HTN. COPD. Asthma. UTI. Rheumatoid arthritis. Systemic lupus erythematosus. Hep C. MRSA. Cdiff. ESBL Klebsiella Pneumon iae. SURGICAL HISTORY : section. Cerebral aneurysm repair. ENCOUNTER: Subsequent ACUITY: 1 day PAIN SCORE: Non-responsive LOCATION: Bilateral arm. FINDINGS: RIGHT UPPER EXTREMITY: There is spontaneous flow documented in the brachial, basilic, cephalic, axillary, and subclavian vei ns. The vessels are compressible and augmentation response is documented. No filling defects are se en. The flow is phasic with respiration. Direction of flow in the jugular vein is caudal. LEFT UPPER EXTREMITY: There is spontaneous flow documented in the brachial, basilic, cephalic, axillary, and subclavian vei ns. Nonocclusive thrombus left internal jugular vein. CONCLUSION: Nonocclusive thrombus in the left internal jugular vein. No thrombus in the right upper extremity. Jason Jamison MD on October 18, 2016 at 22:54 Board Certified Radiologist. This report was verified electronically.
[2016-10-19] VITALS (8 sets, daily range): BP systolic 105–143; BP diastolic 61–89; PULSE 71–85; RESP 20–28; TEMP 97.4–98.9; O2SAT 96–100
[2016-10-19] MEDS: PANTOPRAZOLE SODIUM 40 MG VIAL IV PUSH SCH ×2 (04:11→16:28)
[2016-10-19] MEDS: FREE WATER G-TUBE SCH ×3 (06:00→18:32)
[2016-10-19] MEDS: POTASSIUM PHOSPHATE/SODIUM PHOSPHATE 250 MG TAB PO SCH ×3 (06:19→18:32)
[2016-10-19] MEDS: METOPROLOL TARTRATE 50 MG TAB GT SCH ×3 (06:20→23:00)
[2016-10-19] MEDS: hydrALAZINE HCL 50 MG TAB PO SCH ×3 (06:20→20:57)
[2016-10-19] MEDS: PHENYTOIN SODIUM 100 MG CAP PO SCH ×3 (06:20→20:57)
[2016-10-19] MEDS: METOCLOPRAMIDE HCL 10 MG/2 ML VIAL IV SCH ×3 (06:20→20:57)
[2016-10-19] MEDS: NYSTAT/DIPHENHY/LIDO MOUTHWASH (Adult) 120ML SWISH-SWAL SCH ×4 (09:35→20:58)
[2016-10-19] MEDS: FERROUS SULFATE 300 MG /5ML UDC PO SCH (09:35)
[2016-10-19] MEDS: MULTIVITAMIN TAB PO SCH (09:35)
[2016-10-19] MEDS: LACTOBACILLUS ACIDOPHILUS TAB PO SCH ×3 (09:35→18:32)
[2016-10-19] MEDS: CETIRIZINE HCL SYRUP 10 MG/10 ML UDC PO SCH (09:35)
[2016-10-19] MEDS: SODIUM BICARBONATE 650 MG TAB PO SCH ×2 (09:35→20:57)
[2016-10-19] MEDS: SODIUM CHLORIDE 0.9% FLUSH 5 ML FLUSH IV FLUSH SCH ×2 (09:36→20:57)
[2016-10-19] MEDS: APIXABAN 5 MG TABLET PO SCH ×2 (09:36→20:57)
[2016-10-19] MEDS: PETROLATUM 49%/ZINC OXIDE 15% 4 OUNCE TUBE TOPICAL SCH (09:55)
[2016-10-19] MEDS: BETAMETHASONE DIPROPIONATE 0.05% CREAM 15 GM TOPICAL SCH ×2 (09:56→20:58)
[2016-10-19] MEDS: CALAMINE/PRAMOXINE LOTION 180 ML BTL TOPICAL SCH ×2 (09:56→20:58)
[2016-10-19] MEDS: BACITRACIN TOP OINT 15 GM TUBE TOP SCH ×2 (09:56→20:58)
[2016-10-19 09:58] LABS: AUTOMATED NEUTROPHIL # 6.4 TH/MM3 (1.8-7.7); BASOPHIL # 0.1 TH/MM3 (0-0.2); BASOPHIL % 0.6 % (0.0-2.0); EOSINOPHIL # 0.7 TH/MM3 (0-0.4); HEMATOCRIT 27.3 % (35.0-46.0); LYMPH % 11.2 % (9.0-44.0); LYMPHOCYTE # 1.1 TH/MM3 (1.0-4.8); MEAN CORPUSCULAR HEMOGLOBIN 28.9 PG (27.0-34.0); MEAN CORPUSCULAR HGB CONC 33.6 % (32.0-36.0); NEUT % 68.2 % (16.0-70.0); PLATELET COUNT 233 TH/MM3 (150-450); RED BLOOD COUNT 3.18 MIL/MM3 (4.00-5.30); RED CELL DISTRIBUTION WIDTH 20.5 % (11.6-17.2); WHITE BLOOD COUNT 9.4 TH/MM3 (4.0-11.0)
[2016-10-19 09:59] LABS: HEMO FLAGS AUTO DIFF
[2016-10-19 10:20] LABS: ALKALINE PHOSPHATASE 174 U/L (45-117); ALT (GPT) 27 U/L (10-53); ANION GAP 12 MEQ/L (5-15); AST (GOT) 40 U/L (15-37); BICARBONATE 21.4 MEQ/L (21.0-32.0); CHLORIDE 111 MEQ/L (98-107); GLOMERULAR FILTRATION RATE 44 ML/MIN (>89); MAGNESIUM 2.1 MG/DL (1.5-2.5); POTASSIUM 3.6 MEQ/L (3.5-5.1); SODIUM (NA) 144 MEQ/L (136-145); TOTAL BILIRUBIN ADULT 0.2 MG/DL (0.2-1.0)
[2016-10-19 10:21] LABS: BLOOD UREA NITROGEN 35 MG/DL (7-18)
[2016-10-19 11:33] LABS: SCAN/DIFF AUTO DIFF CONFIRMED
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
[2016-10-19] MEDS: RESP: ALBUTEROL 2.5 MG/IPRATROPIUM 0.5 MG NEB (PRN) INH (16:35)
[2016-10-20] VITALS (8 sets, daily range): BP systolic 103–153; BP diastolic 57–77; PULSE 73–90; RESP 16–24; TEMP 96.3–98; O2SAT 94–100
[2016-10-20] MEDS: PANTOPRAZOLE SODIUM 40 MG VIAL IV PUSH SCH ×2 (03:28→13:45)
[2016-10-20] MEDS: FREE WATER G-TUBE SCH ×5 (06:00→23:53)
[2016-10-20] MEDS: POTASSIUM PHOSPHATE/SODIUM PHOSPHATE 250 MG TAB PO SCH ×5 (06:08→23:53)
[2016-10-20] MEDS: SODIUM CHLORIDE 0.9% FLUSH 5 ML FLUSH IV FLUSH PRN ×2 (06:08→13:46)
[2016-10-20] MEDS: hydrALAZINE HCL 50 MG TAB PO SCH ×3 (06:08→21:17)
[2016-10-20] MEDS: METOCLOPRAMIDE HCL 10 MG/2 ML VIAL IV SCH ×3 (06:08→21:19)
[2016-10-20] MEDS: METOPROLOL TARTRATE 50 MG TAB GT SCH ×3 (06:09→23:53)
[2016-10-20] MEDS: PHENYTOIN SODIUM 100 MG CAP PO SCH ×3 (06:09→21:17)
[2016-10-20 09:00] LABS: AUTOMATED NEUTROPHIL # 5.6 TH/MM3 (1.8-7.7); BASOPHIL % 0.6 % (0.0-2.0); EOSINOPHIL # 1.4 TH/MM3 (0-0.4); EOSINOPHIL % 16.6 % (0.0-4.0); HEMATOCRIT 28.7 % (35.0-46.0); HEMO FLAGS DIFF FINAL; LYMPH % 10.8 % (9.0-44.0); LYMPHOCYTE # 0.9 TH/MM3 (1.0-4.8); MEAN CELL VOLUME 86.6 FL (80.0-100.0); MEAN CORPUSCULAR HGB CONC 33.5 % (32.0-36.0); MONO % 7.8 % (0.0-8.0); NEUT % 64.2 % (16.0-70.0); PLATELET COUNT 276 TH/MM3 (150-450); RED BLOOD COUNT 3.32 MIL/MM3 (4.00-5.30); RED CELL DISTRIBUTION WIDTH 20.2 % (11.6-17.2); WHITE BLOOD COUNT 8.7 TH/MM3 (4.0-11.0)
[2016-10-20 09:13] LABS: APTT (PATIENT) 36.4 SEC (24.3-30.1)
[2016-10-20 09:21] LABS: BICARBONATE 23.6 MEQ/L (21.0-32.0); MAGNESIUM 2.1 MG/DL (1.5-2.5); POTASSIUM 3.2 MEQ/L (3.5-5.1)
[2016-10-20] MEDS: CETIRIZINE HCL SYRUP 10 MG/10 ML UDC PO SCH (09:39)
[2016-10-20] MEDS: LACTOBACILLUS ACIDOPHILUS TAB PO SCH ×3 (09:39→18:16)
[2016-10-20] MEDS: MULTIVITAMIN TAB PO SCH (09:39)
[2016-10-20] MEDS: FERROUS SULFATE 300 MG /5ML UDC PO SCH (09:39)
[2016-10-20] MEDS: APIXABAN 5 MG TABLET PO SCH ×2 (09:39→21:16)
[2016-10-20] MEDS: SODIUM BICARBONATE 650 MG TAB PO SCH ×2 (09:39→21:00)
[2016-10-20] MEDS: NYSTAT/DIPHENHY/LIDO MOUTHWASH (Adult) 120ML SWISH-SWAL SCH ×4 (09:40→21:18)
[2016-10-20] MEDS: SODIUM CHLORIDE 0.9% FLUSH 5 ML FLUSH IV FLUSH SCH ×2 (09:40→21:16)
[2016-10-20] MEDS: BACITRACIN TOP OINT 15 GM TUBE TOP SCH ×2 (09:40→21:18)
[2016-10-20] MEDS: BETAMETHASONE DIPROPIONATE 0.05% CREAM 15 GM TOPICAL SCH ×2 (09:40→21:17)
[2016-10-20] MEDS: CALAMINE/PRAMOXINE LOTION 180 ML BTL TOPICAL SCH ×2 (09:40→21:18)
[2016-10-20] MEDS: PETROLATUM 49%/ZINC OXIDE 15% 4 OUNCE TUBE TOPICAL SCH (09:41)
--- NOTE | 2016-10-20 13:33 | RADRPT ---
EXAM DATE/TIME: 10/20/2016 11:21 [place] COMPARISON: No previous studies available for comparison. INDICATIONS : Shortness of breath for 1 day. DOSE: 8.1 mCi Tc99m MAA IV 1.3 mCi Tc99m DTPA aerosol MEDICAL HISTORY : Hepatitis C. Chronic obstructive pulmonary disease. Hypertension. Asthma. SURGICAL HISTORY : section. ENCOUNTER: Initial ACUITY: 1 day PAIN SCALE: 2/10 LOCATION: Bilateral chest TECHNIQUE: Following five minutes of tidal breathing of DTPA aerosol, planar images of the lungs were performed in eight projections. The patient was then injected with MAA, and eight-view perfusion scan was perf ormed. FINDINGS: There is moderate central airway tip the patient deposition. The perfusion lung scan demonstrates a homogenous pattern of uptake in both lungs. No segmental or s ubsegmental defects are seen. CONCLUSION: Low probability for PE. Moderate ventilatory defect is evident.. Vinay Avalos MD FACR on October 20, 2016 at 13:30 Board Certified Radiologist. This report was verified electronically.
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
[2016-10-20] MEDS ORDERED: POTASSIUM CL 40 MEQ/30 ML LIQ UDC PO ONE (15:00)
[2016-10-21] VITALS (7 sets, daily range): BP systolic 120–153; BP diastolic 65–86; PULSE 79–96; RESP 20–26; TEMP 96.4–98.2; O2SAT 95–100
[2016-10-21] MEDS: PANTOPRAZOLE SODIUM 40 MG VIAL IV PUSH SCH ×2 (03:39→17:34)
[2016-10-21] MEDS: FREE WATER G-TUBE SCH ×4 (06:00→23:59)
[2016-10-21] MEDS: PHENYTOIN SODIUM 100 MG CAP PO SCH ×3 (06:32→20:45)
[2016-10-21] MEDS: METOPROLOL TARTRATE 50 MG TAB GT SCH ×3 (06:32→23:59)
[2016-10-21] MEDS: POTASSIUM PHOSPHATE/SODIUM PHOSPHATE 250 MG TAB PO SCH ×4 (06:32→23:59)
[2016-10-21] MEDS: hydrALAZINE HCL 50 MG TAB PO SCH ×3 (06:32→20:45)
[2016-10-21] MEDS: METOCLOPRAMIDE HCL 10 MG/2 ML VIAL IV SCH ×3 (06:32→20:46)
[2016-10-21 09:34] LABS: AUTOMATED NEUTROPHIL # 5.5 TH/MM3 (1.8-7.7); BASOPHIL # 0.1 TH/MM3 (0-0.2); BASOPHIL % 0.6 % (0.0-2.0); EOSINOPHIL # 1.4 TH/MM3 (0-0.4); EOSINOPHIL % 15.8 % (0.0-4.0); HEMATOCRIT 30.3 % (35.0-46.0); HEMO FLAGS DIFF FINAL; LYMPH % 10.3 % (9.0-44.0); LYMPHOCYTE # 0.9 TH/MM3 (1.0-4.8); MEAN CELL VOLUME 87.8 FL (80.0-100.0); MEAN CORPUSCULAR HEMOGLOBIN 28.3 PG (27.0-34.0); MEAN CORPUSCULAR HGB CONC 32.2 % (32.0-36.0); NEUT % 64.3 % (16.0-70.0); PLATELET COUNT 267 TH/MM3 (150-450); RED BLOOD COUNT 3.45 MIL/MM3 (4.00-5.30); RED CELL DISTRIBUTION WIDTH 20.7 % (11.6-17.2); WHITE BLOOD COUNT 8.6 TH/MM3 (4.0-11.0)
[2016-10-21 09:37] LABS: APTT (PATIENT) 34.5 SEC (24.3-30.1)
[2016-10-21 09:52] LABS: BICARBONATE 27.2 MEQ/L (21.0-32.0); POTASSIUM 3.7 MEQ/L (3.5-5.1)
[2016-10-21] MEDS: SODIUM CHLORIDE 0.9% FLUSH 5 ML FLUSH IV FLUSH SCH ×2 (10:03→20:45)
[2016-10-21] MEDS: CETIRIZINE HCL SYRUP 10 MG/10 ML UDC PO SCH (10:04)
[2016-10-21] MEDS: APIXABAN 5 MG TABLET PO SCH ×2 (10:04→20:45)
[2016-10-21] MEDS: LACTOBACILLUS ACIDOPHILUS TAB PO SCH ×3 (10:04→17:34)
[2016-10-21] MEDS: MULTIVITAMIN TAB PO SCH (10:04)
[2016-10-21] MEDS: FERROUS SULFATE 300 MG /5ML UDC PO SCH (10:04)
[2016-10-21] MEDS: SODIUM BICARBONATE 650 MG TAB PO SCH ×2 (10:04→20:46)
[2016-10-21] MEDS: BETAMETHASONE DIPROPIONATE 0.05% CREAM 15 GM TOPICAL SCH ×2 (10:05→20:47)
[2016-10-21] MEDS: CALAMINE/PRAMOXINE LOTION 180 ML BTL TOPICAL SCH ×2 (10:05→20:47)
[2016-10-21] MEDS: NYSTAT/DIPHENHY/LIDO MOUTHWASH (Adult) 120ML SWISH-SWAL SCH ×4 (10:05→20:46)
[2016-10-21] MEDS: BACITRACIN TOP OINT 15 GM TUBE TOP SCH ×2 (10:05→20:47)
[2016-10-21] MEDS: PETROLATUM 49%/ZINC OXIDE 15% 4 OUNCE TUBE TOPICAL SCH (10:05)
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
[2016-10-22] VITALS (8 sets, daily range): BP systolic 105–141; BP diastolic 53–69; PULSE 87–102; RESP 16–27; TEMP 97.9–98.8; O2SAT 94–99
[2016-10-22] MEDS: PANTOPRAZOLE SODIUM 40 MG VIAL IV PUSH SCH ×2 (03:49→15:09)
[2016-10-22] MEDS: SODIUM CHLORIDE 0.9% FLUSH 5 ML FLUSH IV FLUSH PRN (03:50)
[2016-10-22] MEDS: FREE WATER G-TUBE SCH ×4 (06:00→23:42)
[2016-10-22] MEDS: PHENYTOIN SODIUM 100 MG CAP PO SCH ×3 (06:10→23:12)
[2016-10-22] MEDS: hydrALAZINE HCL 50 MG TAB PO SCH ×3 (06:10→23:12)
[2016-10-22] MEDS: METOPROLOL TARTRATE 50 MG TAB GT SCH ×3 (06:10→23:12)
[2016-10-22] MEDS: POTASSIUM PHOSPHATE/SODIUM PHOSPHATE 250 MG TAB PO SCH ×4 (06:10→23:12)
[2016-10-22] MEDS: METOCLOPRAMIDE HCL 10 MG/2 ML VIAL IV SCH ×3 (06:11→23:13)
[2016-10-22 07:31] LABS: APTT (PATIENT) 34.5 SEC (24.3-30.1)
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
[2016-10-22] MEDS: SODIUM CHLORIDE 0.9% FLUSH 5 ML FLUSH IV FLUSH SCH ×2 (15:04→23:14)
[2016-10-22] MEDS: LACTOBACILLUS ACIDOPHILUS TAB PO SCH ×3 (15:04→18:51)
[2016-10-22] MEDS: APIXABAN 5 MG TABLET PO SCH ×2 (15:04→23:12)
[2016-10-22] MEDS: FERROUS SULFATE 300 MG /5ML UDC PO SCH (15:04)
[2016-10-22] MEDS: SODIUM BICARBONATE 650 MG TAB PO SCH ×2 (15:04→21:00)
[2016-10-22] MEDS: CALAMINE/PRAMOXINE LOTION 180 ML BTL TOPICAL SCH ×2 (15:05→21:00)
[2016-10-22] MEDS: NYSTAT/DIPHENHY/LIDO MOUTHWASH (Adult) 120ML SWISH-SWAL SCH ×4 (15:05→21:00)
[2016-10-22] MEDS: BACITRACIN TOP OINT 15 GM TUBE TOP SCH ×2 (15:05→21:00)
[2016-10-22] MEDS: CETIRIZINE HCL SYRUP 10 MG/10 ML UDC PO SCH (15:05)
[2016-10-22] MEDS: MULTIVITAMIN TAB PO SCH (15:05)
[2016-10-22] MEDS: PETROLATUM 49%/ZINC OXIDE 15% 4 OUNCE TUBE TOPICAL SCH (15:06)
[2016-10-22] MEDS: BETAMETHASONE DIPROPIONATE 0.05% CREAM 15 GM TOPICAL SCH ×2 (15:06→21:00)
[2016-10-23] VITALS (7 sets, daily range): BP systolic 107–142; BP diastolic 58–77; PULSE 73–100; RESP 16–24; TEMP 97.4–98.3; O2SAT 93–99
[2016-10-23] MEDS: FREE WATER G-TUBE SCH ×4 (06:00→22:45)
[2016-10-23] MEDS: PHENYTOIN SODIUM 100 MG CAP PO SCH ×3 (06:27→22:45)
[2016-10-23] MEDS: METOCLOPRAMIDE HCL 10 MG/2 ML VIAL IV SCH ×3 (06:27→22:44)
[2016-10-23] MEDS: METOPROLOL TARTRATE 50 MG TAB GT SCH ×3 (06:27→22:45)
[2016-10-23] MEDS: POTASSIUM PHOSPHATE/SODIUM PHOSPHATE 250 MG TAB PO SCH ×4 (06:27→22:44)
[2016-10-23] MEDS: PANTOPRAZOLE SODIUM 40 MG VIAL IV PUSH SCH ×2 (06:27→15:29)
[2016-10-23] MEDS: hydrALAZINE HCL 50 MG TAB PO SCH ×3 (06:27→22:45)
[2016-10-23 07:59] LABS: AUTOMATED NEUTROPHIL # 6.8 TH/MM3 (1.8-7.7); BASOPHIL # 0.1 TH/MM3 (0-0.2); BASOPHIL % 0.6 % (0.0-2.0); EOSINOPHIL # 1.1 TH/MM3 (0-0.4); EOSINOPHIL % 11.5 % (0.0-4.0); HEMO FLAGS DIFF FINAL; LYMPH % 9.5 % (9.0-44.0); LYMPHOCYTE # 0.9 TH/MM3 (1.0-4.8); MEAN CELL VOLUME 87.3 FL (80.0-100.0); MEAN CORPUSCULAR HEMOGLOBIN 29.1 PG (27.0-34.0); MEAN CORPUSCULAR HGB CONC 33.3 % (32.0-36.0); MONO % 7.7 % (0.0-8.0); NEUT % 70.7 % (16.0-70.0); PLATELET COUNT 256 TH/MM3 (150-450); RED BLOOD COUNT 3.21 MIL/MM3 (4.00-5.30); RED CELL DISTRIBUTION WIDTH 19.9 % (11.6-17.2); WHITE BLOOD COUNT 9.6 TH/MM3 (4.0-11.0)
[2016-10-23 08:03] LABS: APTT (PATIENT) 33.7 SEC (24.3-30.1)
[2016-10-23] MEDS: LACTOBACILLUS ACIDOPHILUS TAB PO SCH ×3 (08:09→17:21)
[2016-10-23] MEDS: SODIUM CHLORIDE 0.9% FLUSH 5 ML FLUSH IV FLUSH SCH ×2 (08:09→22:46)
[2016-10-23] MEDS: SODIUM BICARBONATE 650 MG TAB PO SCH ×2 (08:09→22:45)
[2016-10-23] MEDS: APIXABAN 5 MG TABLET PO SCH ×2 (08:09→22:45)
[2016-10-23] MEDS: MULTIVITAMIN TAB PO SCH (08:10)
[2016-10-23] MEDS: CETIRIZINE HCL SYRUP 10 MG/10 ML UDC PO SCH (08:10)
[2016-10-23] MEDS: NYSTAT/DIPHENHY/LIDO MOUTHWASH (Adult) 120ML SWISH-SWAL SCH ×4 (08:10→21:00)
[2016-10-23] MEDS: FERROUS SULFATE 300 MG /5ML UDC PO SCH (08:14)
[2016-10-23] MEDS: CALAMINE/PRAMOXINE LOTION 180 ML BTL TOPICAL SCH ×2 (08:20→22:46)
[2016-10-23] MEDS: PETROLATUM 49%/ZINC OXIDE 15% 4 OUNCE TUBE TOPICAL SCH (08:20)
[2016-10-23] MEDS: BETAMETHASONE DIPROPIONATE 0.05% CREAM 15 GM TOPICAL SCH ×2 (08:21→21:00)
[2016-10-23] MEDS: BACITRACIN TOP OINT 15 GM TUBE TOP SCH ×2 (08:21→21:00)
[2016-10-23 08:24] LABS: BICARBONATE 24.7 MEQ/L (21.0-32.0); POTASSIUM 3.5 MEQ/L (3.5-5.1)
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
[2016-10-24] VITALS (7 sets, daily range): BP systolic 111–147; BP diastolic 62–78; PULSE 84–101; RESP 18–24; TEMP 97–98.3; O2SAT 92–99
[2016-10-24] MEDS: PANTOPRAZOLE SODIUM 40 MG VIAL IV PUSH SCH ×2 (03:45→15:28)
[2016-10-24] MEDS: POTASSIUM PHOSPHATE/SODIUM PHOSPHATE 250 MG TAB PO SCH ×4 (06:00→23:29)
[2016-10-24] MEDS: FREE WATER G-TUBE SCH ×4 (06:00→22:39)
[2016-10-24] MEDS: hydrALAZINE HCL 50 MG TAB PO SCH ×3 (06:00→22:36)
[2016-10-24] MEDS: METOCLOPRAMIDE HCL 10 MG/2 ML VIAL IV SCH ×3 (06:00→22:39)
[2016-10-24] MEDS: PHENYTOIN SODIUM 100 MG CAP PO SCH ×3 (06:00→22:36)
[2016-10-24] MEDS: METOPROLOL TARTRATE 50 MG TAB GT SCH ×3 (06:54→22:36)
[2016-10-24 08:26] LABS: APTT (PATIENT) 35.2 SEC (24.3-30.1)
[2016-10-24] MEDS: NYSTAT/DIPHENHY/LIDO MOUTHWASH (Adult) 120ML SWISH-SWAL SCH ×4 (09:00→22:37)
[2016-10-24] MEDS: LACTOBACILLUS ACIDOPHILUS TAB PO SCH ×3 (09:00→18:00)
[2016-10-24] MEDS: CETIRIZINE HCL SYRUP 10 MG/10 ML UDC PO SCH (09:01)
[2016-10-24] MEDS: APIXABAN 5 MG TABLET PO SCH ×2 (09:01→22:36)
[2016-10-24] MEDS: FERROUS SULFATE 300 MG /5ML UDC PO SCH (09:01)
[2016-10-24] MEDS: MULTIVITAMIN TAB PO SCH (09:01)
[2016-10-24] MEDS: SODIUM CHLORIDE 0.9% FLUSH 5 ML FLUSH IV FLUSH SCH ×2 (09:01→23:29)
[2016-10-24] MEDS: SODIUM BICARBONATE 650 MG TAB PO SCH ×2 (09:01→22:36)
[2016-10-24] MEDS: PETROLATUM 49%/ZINC OXIDE 15% 4 OUNCE TUBE TOPICAL SCH (09:02)
[2016-10-24] MEDS: CALAMINE/PRAMOXINE LOTION 180 ML BTL TOPICAL SCH ×2 (09:02→22:38)
[2016-10-24] MEDS: BETAMETHASONE DIPROPIONATE 0.05% CREAM 15 GM TOPICAL SCH ×2 (09:02→23:30)
[2016-10-24] MEDS: BACITRACIN TOP OINT 15 GM TUBE TOP SCH ×2 (09:03→22:37)
[2016-10-24] MEDS: RESP: ALBUTEROL 2.5 MG/IPRATROPIUM 0.5 MG NEB (PRN) INH (09:34)
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
[2016-10-24] MEDS: LACTIC ACID (AMMONIUM LACTATE) 12% LOTION 225 GM BTL TOPICAL SCH (22:38)
[2016-10-25] VITALS: BP 114/60; PULSE 91; RESP 20; TEMP 97.6; O2SAT 97
[2016-10-25] MEDS: PANTOPRAZOLE SODIUM 40 MG VIAL IV PUSH SCH (02:10)
[2016-10-25 04:00] VITALS: BP 135/68; PULSE 87; RESP 22; TEMP 97.8; O2SAT 95
[2016-10-25] MEDS: METOPROLOL TARTRATE 50 MG TAB GT SCH ×3 (05:18→23:51)
[2016-10-25] MEDS: hydrALAZINE HCL 50 MG TAB PO SCH ×3 (05:18→21:13)
[2016-10-25] MEDS: FREE WATER G-TUBE SCH ×4 (05:19→23:51)
[2016-10-25] MEDS: PHENYTOIN SODIUM 100 MG CAP PO SCH ×3 (05:19→21:08)
[2016-10-25] MEDS: POTASSIUM PHOSPHATE/SODIUM PHOSPHATE 250 MG TAB PO SCH ×4 (05:19→23:51)
[2016-10-25] MEDS: METOCLOPRAMIDE HCL 10 MG/2 ML VIAL IV SCH (05:22)
[2016-10-25] MEDS: SODIUM CHLORIDE 0.9% FLUSH 5 ML FLUSH IV FLUSH PRN (05:23)
[2016-10-25 08:00] VITALS: BP 131/65; PULSE 86; RESP 18; TEMP 97; O2SAT 99
[2016-10-25 08:21] LABS: APTT (PATIENT) 34.8 SEC (24.3-30.1)
[2016-10-25] MEDS: CETIRIZINE HCL SYRUP 10 MG/10 ML UDC PO SCH (09:00)
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
[2016-10-25] MEDS: SODIUM BICARBONATE 650 MG TAB PO SCH ×2 (10:17→21:08)
[2016-10-25] MEDS: APIXABAN 5 MG TABLET PO SCH ×2 (10:17→21:08)
[2016-10-25] MEDS: SODIUM CHLORIDE 0.9% FLUSH 5 ML FLUSH IV FLUSH SCH ×2 (10:17→21:09)
[2016-10-25] MEDS: LACTOBACILLUS ACIDOPHILUS TAB PO SCH ×3 (10:17→18:04)
[2016-10-25] MEDS: FERROUS SULFATE 300 MG /5ML UDC PO SCH (10:17)
[2016-10-25] MEDS: CALAMINE/PRAMOXINE LOTION 180 ML BTL TOPICAL SCH ×2 (10:18→21:11)
[2016-10-25] MEDS: BACITRACIN TOP OINT 15 GM TUBE TOP SCH ×2 (10:18→21:00)
[2016-10-25] MEDS: BETAMETHASONE DIPROPIONATE 0.05% CREAM 15 GM TOPICAL SCH ×2 (10:18→21:00)
[2016-10-25] MEDS: MULTIVITAMIN TAB PO SCH (10:18)
[2016-10-25] MEDS: NYSTAT/DIPHENHY/LIDO MOUTHWASH (Adult) 120ML SWISH-SWAL SCH ×4 (10:18→21:09)
[2016-10-25] MEDS: PETROLATUM 49%/ZINC OXIDE 15% 4 OUNCE TUBE TOPICAL SCH (10:19)
[2016-10-25] MEDS: LACTIC ACID (AMMONIUM LACTATE) 12% LOTION 225 GM BTL TOPICAL SCH ×2 (10:19→21:10)
[2016-10-25 12:00] VITALS: BP 125/77; PULSE 91; RESP 18; TEMP 97; O2SAT 98
[2016-10-25 14:52] VITALS: BP 121/69; PULSE 92; RESP 20; TEMP 97.5; O2SAT 94
[2016-10-25 20:00] VITALS: BP 137/73; PULSE 98; RESP 22; TEMP 97.1; O2SAT 92
[2016-10-25] MEDS: AMPICILLIN/SULBAC 3 GM/NS 100 ML IV SCH ×2 (21:09)
[2016-10-25] MEDS: SKIN PROTECTANT PASTE 57 GM TUBE TOPICAL PRN (21:10)
--- NOTE | 2016-10-25 23:34 | RADRPT ---
EXAM DATE/TIME: 10/25/2016 22:14 [facility] COMPARISON: No previous studies available for comparison. INDICATIONS : Left leg pain and swelling. MEDICAL HISTORY : Hypercholesterolemia. Chronic obstructive pulmonary disease. Emphysema. Seizures. Cerebrovascular accident. Migraines. Hypertension. Asthma. Rheumatoid arthritis. Lupus. Hepatitis C. C.diff. MDRO. MR . SURGICAL HISTORY : section. Cerebral aneurysm repair. ENCOUNTER: Subsequent ACUITY: 1 day PAIN SCORE: 4/10 LOCATION: Left leg. TECHNIQUE: Venous ultrasound of the leg was performed from the inguinal ligament to the proximal calf. Real-ngozi e, color Doppler and spectral tracing, compression and augmentation techniques were used. FINDINGS: There is normal compressibility of the deep venous system from the inguinal region to the proximal ca lf. No echogenic clot is seen in the lumen of the common femoral, femoral, popliteal, and posterior tibial veins. There is a normal response of the venous system to proximal and distal augmentation an d respiration. CONCLUSION: Normal examination. Aidan Dumont MD on October 25, 2016 at 23:32 Board Certified Radiologist. This report was verified electronically.
[2016-10-26] VITALS: BP 115/70; PULSE 99; RESP 20; TEMP 97.1; O2SAT 95
[2016-10-26] MEDS: AMPICILLIN/SULBAC 3 GM/NS 100 ML IV SCH ×8 (02:43→22:32)
[2016-10-26 04:00] VITALS: BP 128/83; PULSE 88; RESP 20; TEMP 97.4; O2SAT 94
[2016-10-26] MEDS: POTASSIUM PHOSPHATE/SODIUM PHOSPHATE 250 MG TAB PO SCH (05:34)
[2016-10-26] MEDS: hydrALAZINE HCL 50 MG TAB PO SCH ×3 (05:34→22:32)
[2016-10-26] MEDS: PHENYTOIN SODIUM 100 MG CAP PO SCH ×3 (05:34→22:31)
[2016-10-26] MEDS: FREE WATER G-TUBE SCH ×4 (05:34→23:57)
[2016-10-26] MEDS: METOPROLOL TARTRATE 50 MG TAB GT SCH ×3 (05:34→23:57)
[2016-10-26 08:00] VITALS: BP 95/55; PULSE 79; RESP 18; TEMP 97.6; O2SAT 98
[2016-10-26] MEDS: PETROLATUM 49%/ZINC OXIDE 15% 4 OUNCE TUBE TOPICAL SCH (09:00)
[2016-10-26] MEDS: APIXABAN 5 MG TABLET PO SCH ×2 (09:00→22:32)
[2016-10-26] MEDS: MULTIVITAMIN TAB PO SCH (09:00)
[2016-10-26] MEDS: LANSOPRAZOLE SOLUTAB 15 MG TAB NG SCH (09:00)
[2016-10-26] MEDS: BETAMETHASONE DIPROPIONATE 0.05% CREAM 15 GM TOPICAL SCH ×2 (09:00→22:34)
[2016-10-26] MEDS: BACITRACIN TOP OINT 15 GM TUBE TOP SCH ×2 (09:00→22:35)
[2016-10-26] MEDS: FERROUS SULFATE 300 MG /5ML UDC PO SCH (09:00)
[2016-10-26] MEDS: LACTIC ACID (AMMONIUM LACTATE) 12% LOTION 225 GM BTL TOPICAL SCH ×2 (09:00→22:33)
[2016-10-26] MEDS: LACTOBACILLUS ACIDOPHILUS TAB PO SCH ×3 (09:00→17:24)
[2016-10-26] MEDS: CALAMINE/PRAMOXINE LOTION 180 ML BTL TOPICAL SCH ×2 (09:00→21:00)
[2016-10-26] MEDS: SODIUM BICARBONATE 650 MG TAB PO SCH ×2 (09:00→22:33)
[2016-10-26] MEDS: SODIUM CHLORIDE 0.9% FLUSH 5 ML FLUSH IV FLUSH SCH ×2 (09:00→22:33)
[2016-10-26] MEDS: NYSTAT/DIPHENHY/LIDO MOUTHWASH (Adult) 120ML SWISH-SWAL SCH ×4 (09:00→22:33)
[2016-10-26 09:02] LABS: APTT (PATIENT) 36.4 SEC (24.3-30.1)
[2016-10-26 09:05] LABS: AUTOMATED NEUTROPHIL # 10.5 TH/MM3 (1.8-7.7); BASOPHIL % 0.2 % (0.0-2.0); EOSINOPHIL # 1.6 TH/MM3 (0-0.4); EOSINOPHIL % 11.6 % (0.0-4.0); HEMATOCRIT 28.5 % (35.0-46.0); LYMPH % 5.3 % (9.0-44.0); LYMPHOCYTE # 0.7 TH/MM3 (1.0-4.8); MEAN CELL VOLUME 87.8 FL (80.0-100.0); MEAN CORPUSCULAR HEMOGLOBIN 28.5 PG (27.0-34.0); MEAN CORPUSCULAR HGB CONC 32.4 % (32.0-36.0); MONO % 5.9 % (0.0-8.0); PLATELET COUNT 296 TH/MM3 (150-450); RED BLOOD COUNT 3.25 MIL/MM3 (4.00-5.30); RED CELL DISTRIBUTION WIDTH 19.2 % (11.6-17.2); WHITE BLOOD COUNT 13.7 TH/MM3 (4.0-11.0)
[2016-10-26 09:08] LABS: HEMO FLAGS AUTO DIFF
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
[2016-10-26] MEDS ORDERED: NALOXONE HCL 0.4 MG/ML AMP IV PRN (09:45)
[2016-10-26] MEDS ORDERED: ACETAMINOPHEN/HYDROcodone 325 MG/5 MG TAB PO PRN (09:45)
[2016-10-26 09:58] LABS: BANDS 5 % (0-6); EOSINOPHILS 7 % (0-4); MYELOCYTES 1 % (0-0); NEUTROPHIL # MANUAL DIFF 11.1 TH/MM3 (1.8-7.7); PLATELET ESTIMATE SMEAR NORMAL (NORMAL); PLATELET MORPHOLOGY NORMAL (NORMAL); POLYS (SEG NEUTROPHILS) 75 % (16-70); SCAN/DIFF FINAL DIFF MANUAL; WBC DIFF SAMPLE 100
[2016-10-26] MEDS: ACETAMINOPHEN/HYDROcodone 325 MG/10 MG TAB PO PRN ×3 (10:13→22:32)
[2016-10-26 12:00] VITALS: BP 118/70; PULSE 85; RESP 20; TEMP 97.4; O2SAT 98
[2016-10-26 16:00] VITALS: BP 103/57; PULSE 75; RESP 20; TEMP 97.3; O2SAT 98
[2016-10-26 18:29] LABS: BICARBONATE 21.3 MEQ/L (21.0-32.0); POTASSIUM 3.9 MEQ/L (3.5-5.1)
[2016-10-26 20:00] VITALS: BP 114/59; PULSE 89; RESP 18; TEMP 97.5; O2SAT 92
[2016-10-27 00:52] VITALS: BP 97/52; PULSE 80; RESP 16; TEMP 97.4; O2SAT 97
[2016-10-27] MEDS: ACETAMINOPHEN/HYDROcodone 325 MG/10 MG TAB PO PRN (03:32)
[2016-10-27] MEDS: AMPICILLIN/SULBAC 3 GM/NS 100 ML IV SCH ×8 (03:32→21:23)
[2016-10-27 05:04] VITALS: BP 95/51; PULSE 62; RESP 16; TEMP 97.2; O2SAT 95
[2016-10-27] MEDS: FREE WATER G-TUBE SCH ×3 (06:00→17:08)
[2016-10-27] MEDS: PHENYTOIN SODIUM 100 MG CAP PO SCH ×3 (06:23→21:25)
[2016-10-27] MEDS: hydrALAZINE HCL 50 MG TAB PO SCH ×3 (06:23→21:25)
[2016-10-27] MEDS: METOPROLOL TARTRATE 50 MG TAB GT SCH ×2 (06:23→15:01)
[2016-10-27 08:00] VITALS: BP 90/51; PULSE 76; RESP 20; TEMP 97.6; O2SAT 97
[2016-10-27 08:05] LABS: AUTOMATED NEUTROPHIL # 7.8 TH/MM3 (1.8-7.7); BASOPHIL % 0.2 % (0.0-2.0); EOSINOPHIL # 1.6 TH/MM3 (0-0.4); EOSINOPHIL % 14.2 % (0.0-4.0); HEMATOCRIT 24.4 % (35.0-46.0); LYMPH % 8.8 % (9.0-44.0); MEAN CORPUSCULAR HEMOGLOBIN 28.6 PG (27.0-34.0); MEAN CORPUSCULAR HGB CONC 32.9 % (32.0-36.0); MONO % 6.1 % (0.0-8.0); NEUT % 70.7 % (16.0-70.0); PLATELET COUNT 286 TH/MM3 (150-450); RED CELL DISTRIBUTION WIDTH 19.2 % (11.6-17.2)
[2016-10-27 08:08] LABS: APTT (PATIENT) 34.5 SEC (24.3-30.1); HEMO FLAGS AUTO DIFF
[2016-10-27 08:28] LABS: BICARBONATE 23.9 MEQ/L (21.0-32.0); POTASSIUM 3.5 MEQ/L (3.5-5.1)
[2016-10-27 08:51] LABS: BANDS 10 % (0-6); BASOPHILS 1 % (0-2); EOSINOPHILS 10 % (0-4); NEUTROPHIL # MANUAL DIFF 8.6 TH/MM3 (1.8-7.7); POLYS (SEG NEUTROPHILS) 67 % (16-70); PROMYELOCYTES 1 % (0-0); WBC DIFF SAMPLE 100
[2016-10-27 08:52] LABS: PLATELET ESTIMATE SMEAR NORMAL (NORMAL); PLATELET MORPHOLOGY NORMAL (NORMAL); SCAN/DIFF FINAL DIFF MANUAL
[2016-10-27] MEDS: PETROLATUM 49%/ZINC OXIDE 15% 4 OUNCE TUBE TOPICAL SCH (09:00)
[2016-10-27] MEDS: BETAMETHASONE DIPROPIONATE 0.05% CREAM 15 GM TOPICAL SCH ×2 (09:00→21:00)
[2016-10-27] MEDS: NYSTAT/DIPHENHY/LIDO MOUTHWASH (Adult) 120ML SWISH-SWAL SCH ×4 (09:00→21:00)
[2016-10-27] MEDS: CALAMINE/PRAMOXINE LOTION 180 ML BTL TOPICAL SCH ×2 (09:00→21:00)
[2016-10-27] MEDS: LACTIC ACID (AMMONIUM LACTATE) 12% LOTION 225 GM BTL TOPICAL SCH ×2 (09:00→21:00)
[2016-10-27] MEDS: SODIUM CHLORIDE 0.9% FLUSH 5 ML FLUSH IV FLUSH SCH ×2 (09:00→21:23)
[2016-10-27] MEDS: BACITRACIN TOP OINT 15 GM TUBE TOP SCH ×2 (09:00→21:00)
[2016-10-27] MEDS: LANSOPRAZOLE SOLUTAB 15 MG TAB NG SCH (10:09)
[2016-10-27] MEDS: APIXABAN 5 MG TABLET PO SCH ×2 (10:09→21:25)
[2016-10-27] MEDS: SODIUM BICARBONATE 650 MG TAB PO SCH ×2 (10:09→21:25)
[2016-10-27] MEDS: FERROUS SULFATE 300 MG /5ML UDC PO SCH (10:09)
[2016-10-27] MEDS: LACTOBACILLUS ACIDOPHILUS TAB PO SCH ×3 (10:09→17:08)
[2016-10-27] MEDS: MULTIVITAMIN TAB PO SCH (10:10)
[2016-10-27 12:00] VITALS: BP 101/59; PULSE 83; RESP 28; TEMP 97.8; O2SAT 97
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
[2016-10-27 16:00] VITALS: BP 109/60; PULSE 83; RESP 24; TEMP 98; O2SAT 97
[2016-10-27 20:00] VITALS: BP 109/55; PULSE 93; RESP 24; TEMP 97.7; O2SAT 95
[2016-10-28] VITALS (8 sets, daily range): BP systolic 117–127; BP diastolic 56–72; PULSE 88–101; RESP 18–24; TEMP 97–98; O2SAT 90–96
[2016-10-28] MEDS: METOPROLOL TARTRATE 50 MG TAB GT SCH ×4 (00:37→22:00)
[2016-10-28] MEDS: AMPICILLIN/SULBAC 3 GM/NS 100 ML IV SCH ×6 (02:36→14:40)
[2016-10-28] MEDS: PHENYTOIN SODIUM 100 MG CAP PO SCH ×3 (05:38→21:59)
[2016-10-28] MEDS: FREE WATER G-TUBE SCH ×4 (05:39→16:46)
[2016-10-28] MEDS: hydrALAZINE HCL 50 MG TAB PO SCH ×3 (05:39→21:59)
[2016-10-28] MEDS: SODIUM BICARBONATE 650 MG TAB PO SCH ×2 (08:26→20:07)
[2016-10-28] MEDS: LANSOPRAZOLE SOLUTAB 15 MG TAB NG SCH (08:26)
[2016-10-28] MEDS: MULTIVITAMIN TAB PO SCH (08:26)
[2016-10-28] MEDS: FERROUS SULFATE 300 MG /5ML UDC PO SCH (08:26)
[2016-10-28] MEDS: APIXABAN 5 MG TABLET PO SCH ×2 (08:26→20:08)
[2016-10-28] MEDS: LACTOBACILLUS ACIDOPHILUS TAB PO SCH ×3 (08:26→16:46)
[2016-10-28] MEDS: CALAMINE/PRAMOXINE LOTION 180 ML BTL TOPICAL SCH ×2 (08:27→20:08)
[2016-10-28] MEDS: SODIUM CHLORIDE 0.9% FLUSH 5 ML FLUSH IV FLUSH SCH ×2 (08:27→20:08)
[2016-10-28] MEDS: LACTIC ACID (AMMONIUM LACTATE) 12% LOTION 225 GM BTL TOPICAL SCH ×2 (08:27→20:08)
[2016-10-28] MEDS: BACITRACIN TOP OINT 15 GM TUBE TOP SCH ×2 (08:27→20:08)
[2016-10-28] MEDS: NYSTAT/DIPHENHY/LIDO MOUTHWASH (Adult) 120ML SWISH-SWAL SCH ×3 (08:27→16:46)
[2016-10-28] MEDS: BETAMETHASONE DIPROPIONATE 0.05% CREAM 15 GM TOPICAL SCH ×2 (08:27→20:08)
[2016-10-28] MEDS: PETROLATUM 49%/ZINC OXIDE 15% 4 OUNCE TUBE TOPICAL SCH (08:27)
[2016-10-28 09:32] LABS: APTT (PATIENT) 32.2 SEC (24.3-30.1)
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
[2016-10-28] MEDS: AMOXICILLIN/CLAVULANATE K 875 MG TAB TUBE SCH (20:07)
[2016-10-29] VITALS (8 sets, daily range): BP systolic 96–135; BP diastolic 55–73; PULSE 74–123; RESP 20–22; TEMP 96.8–97.6; O2SAT 90–100
[2016-10-29] MEDS: METOPROLOL TARTRATE 50 MG TAB GT SCH ×3 (05:58→22:47)
[2016-10-29] MEDS: hydrALAZINE HCL 50 MG TAB PO SCH ×3 (05:58→21:33)
[2016-10-29] MEDS: FREE WATER G-TUBE SCH ×5 (05:58→22:47)
[2016-10-29] MEDS: PHENYTOIN SODIUM 100 MG CAP PO SCH (05:58)
[2016-10-29 08:06] LABS: ALKALINE PHOSPHATASE 110 U/L (45-117); ALT (GPT) 27 U/L (10-53); ANION GAP 8 MEQ/L (5-15); AST (GOT) 29 U/L (15-37); BLOOD UREA NITROGEN 22 MG/DL (7-18); CHLORIDE 110 MEQ/L (98-107); GLOMERULAR FILTRATION RATE 50 ML/MIN (>89); MAGNESIUM 2.1 MG/DL (1.5-2.5); POTASSIUM 3.6 MEQ/L (3.5-5.1); SODIUM (NA) 146 MEQ/L (136-145); TOTAL BILIRUBIN ADULT 0.3 MG/DL (0.2-1.0)
[2016-10-29] MEDS: SODIUM CHLORIDE 0.9% FLUSH 5 ML FLUSH IV FLUSH SCH ×2 (08:20→21:00)
[2016-10-29] MEDS: LANSOPRAZOLE SOLUTAB 15 MG TAB NG SCH (08:20)
[2016-10-29] MEDS: APIXABAN 5 MG TABLET PO SCH ×2 (08:20→21:33)
[2016-10-29] MEDS: LACTOBACILLUS ACIDOPHILUS TAB PO SCH ×3 (08:21→18:00)
[2016-10-29] MEDS: FERROUS SULFATE 300 MG /5ML UDC PO SCH (08:21)
[2016-10-29] MEDS: SODIUM BICARBONATE 650 MG TAB PO SCH ×2 (08:21→21:33)
[2016-10-29] MEDS: MULTIVITAMIN TAB PO SCH (08:22)
[2016-10-29] MEDS: BACITRACIN TOP OINT 15 GM TUBE TOP SCH ×2 (08:22→21:00)
[2016-10-29] MEDS: CALAMINE/PRAMOXINE LOTION 180 ML BTL TOPICAL SCH ×2 (08:22→21:00)
[2016-10-29] MEDS: AMOXICILLIN/CLAVULANATE K 875 MG TAB TUBE SCH ×2 (08:23→21:32)
[2016-10-29] MEDS: PETROLATUM 49%/ZINC OXIDE 15% 4 OUNCE TUBE TOPICAL SCH (08:23)
[2016-10-29] MEDS: BETAMETHASONE DIPROPIONATE 0.05% CREAM 15 GM TOPICAL SCH ×2 (08:23→21:00)
[2016-10-29] MEDS: LACTIC ACID (AMMONIUM LACTATE) 12% LOTION 225 GM BTL TOPICAL SCH ×2 (08:23→21:00)
[2016-10-29] MEDS ORDERED: PHENYTOIN INJ 1,000 MG in SODIUM CHLORIDE 0.9% INJ 100 ML IV ONE (14:00)
[2016-10-29] MEDS: PHENYTOIN SODIUM 100 MG CAP GT SCH ×2 (14:00→21:32)
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
[2016-10-30] VITALS (8 sets, daily range): BP systolic 90–123; BP diastolic 54–67; PULSE 72–90; RESP 18–23; TEMP 97.3–98; O2SAT 93–100
[2016-10-30] MEDS: FREE WATER G-TUBE SCH ×4 (05:58→22:53)
[2016-10-30] MEDS: hydrALAZINE HCL 50 MG TAB PO SCH ×3 (06:00→21:30)
[2016-10-30] MEDS: PHENYTOIN SODIUM 100 MG CAP GT SCH ×3 (06:10→21:30)
[2016-10-30] MEDS: METOPROLOL TARTRATE 50 MG TAB GT SCH ×3 (06:10→22:32)
[2016-10-30 06:57] LABS: BASOPHIL # 0.1 TH/MM3 (0-0.2); BASOPHIL % 0.6 % (0.0-2.0); EOSINOPHIL # 1.7 TH/MM3 (0-0.4); EOSINOPHIL % 17.7 % (0.0-4.0); HEMATOCRIT 23.3 % (35.0-46.0); LYMPH % 10.3 % (9.0-44.0); MEAN CELL VOLUME 88.1 FL (80.0-100.0); MEAN CORPUSCULAR HEMOGLOBIN 29.3 PG (27.0-34.0); MEAN CORPUSCULAR HGB CONC 33.3 % (32.0-36.0); MONO % 7.5 % (0.0-8.0); NEUT % 63.9 % (16.0-70.0); PLATELET COUNT 289 TH/MM3 (150-450); RED BLOOD COUNT 2.64 MIL/MM3 (4.00-5.30); RED CELL DISTRIBUTION WIDTH 18.8 % (11.6-17.2); WHITE BLOOD COUNT 9.3 TH/MM3 (4.0-11.0)
[2016-10-30 07:21] LABS: BICARBONATE 27.4 MEQ/L (21.0-32.0); MAGNESIUM 2.2 MG/DL (1.5-2.5); POTASSIUM 3.4 MEQ/L (3.5-5.1)
[2016-10-30 07:28] LABS: HEMO FLAGS AUTO DIFF
[2016-10-30] MEDS: SODIUM CHLORIDE 0.9% FLUSH 5 ML FLUSH IV FLUSH SCH ×2 (09:00→21:00)
[2016-10-30] MEDS: APIXABAN 5 MG TABLET PO SCH ×2 (09:00→21:30)
[2016-10-30] MEDS: BETAMETHASONE DIPROPIONATE 0.05% CREAM 15 GM TOPICAL SCH ×2 (09:00→21:00)
[2016-10-30] MEDS: SODIUM BICARBONATE 650 MG TAB PO SCH ×2 (09:00→21:31)
[2016-10-30] MEDS: LANSOPRAZOLE SOLUTAB 15 MG TAB NG SCH (09:00)
[2016-10-30] MEDS: BACITRACIN TOP OINT 15 GM TUBE TOP SCH ×2 (09:00→21:00)
[2016-10-30] MEDS: LACTOBACILLUS ACIDOPHILUS TAB PO SCH ×3 (09:00→17:43)
[2016-10-30] MEDS: CALAMINE/PRAMOXINE LOTION 180 ML BTL TOPICAL SCH ×2 (09:00→21:00)
[2016-10-30] MEDS: LACTIC ACID (AMMONIUM LACTATE) 12% LOTION 225 GM BTL TOPICAL SCH ×2 (09:00→21:00)
[2016-10-30] MEDS: PETROLATUM 49%/ZINC OXIDE 15% 4 OUNCE TUBE TOPICAL SCH (09:00)
[2016-10-30] MEDS: AMOXICILLIN/CLAVULANATE K 875 MG TAB TUBE SCH ×2 (09:00→21:31)
[2016-10-30] MEDS: FERROUS SULFATE 300 MG /5ML UDC PO SCH (09:00)
[2016-10-30] MEDS: MULTIVITAMIN TAB PO SCH (09:00)
[2016-10-30 09:07] LABS: BANDS 10 % (0-6); EOSINOPHILS 14 % (0-4); METAMYELOCYTES 1 % (0-1); MYELOCYTES 1 % (0-0); NEUTROPHIL # MANUAL DIFF 6.7 TH/MM3 (1.8-7.7); POLYS (SEG NEUTROPHILS) 60 % (16-70); WBC DIFF SAMPLE 100
[2016-10-30 09:08] LABS: PLATELET ESTIMATE SMEAR NORMAL (NORMAL); PLATELET MORPHOLOGY NORMAL (NORMAL); SCAN/DIFF FINAL DIFF MANUAL
[2016-10-30] MEDS ORDERED: POTASSIUM CHLORIDE 25 MEQ EFFERVESCENT TAB GT ONE (09:30)
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
[2016-10-31] VITALS (8 sets, daily range): BP systolic 113–148; BP diastolic 56–84; PULSE 74–91; RESP 19–20; TEMP 97–98.5; O2SAT 95–100
[2016-10-31] MEDS: hydrALAZINE HCL 50 MG TAB PO SCH ×3 (05:13→22:25)
[2016-10-31] MEDS: FREE WATER G-TUBE SCH ×4 (05:13→23:27)
[2016-10-31] MEDS: PHENYTOIN SODIUM 100 MG CAP GT SCH ×3 (05:13→22:25)
[2016-10-31] MEDS: METOPROLOL TARTRATE 50 MG TAB GT SCH ×3 (06:10→22:25)
[2016-10-31 08:05] LABS: BICARBONATE 23.5 MEQ/L (21.0-32.0); MAGNESIUM 2.2 MG/DL (1.5-2.5); POTASSIUM 4.2 MEQ/L (3.5-5.1)
[2016-10-31] MEDS: SODIUM BICARBONATE 650 MG TAB PO SCH ×2 (09:09→22:25)
[2016-10-31] MEDS: MULTIVITAMIN TAB PO SCH (09:09)
[2016-10-31] MEDS: AMOXICILLIN/CLAVULANATE K 875 MG TAB TUBE SCH ×2 (09:09→22:25)
[2016-10-31] MEDS: LANSOPRAZOLE SOLUTAB 15 MG TAB NG SCH (09:09)
[2016-10-31] MEDS: LACTOBACILLUS ACIDOPHILUS TAB PO SCH ×3 (09:09→16:29)
[2016-10-31] MEDS: APIXABAN 5 MG TABLET PO SCH ×2 (09:09→22:27)
[2016-10-31] MEDS: CALAMINE/PRAMOXINE LOTION 180 ML BTL TOPICAL SCH ×2 (09:10→21:00)
[2016-10-31] MEDS: FERROUS SULFATE 300 MG /5ML UDC PO SCH (09:10)
[2016-10-31] MEDS: LACTIC ACID (AMMONIUM LACTATE) 12% LOTION 225 GM BTL TOPICAL SCH ×2 (09:10→21:00)
[2016-10-31] MEDS: SODIUM CHLORIDE 0.9% FLUSH 5 ML FLUSH IV FLUSH SCH ×2 (09:10→22:27)
[2016-10-31] MEDS: BETAMETHASONE DIPROPIONATE 0.05% CREAM 15 GM TOPICAL SCH ×2 (09:10→21:00)
[2016-10-31] MEDS: BACITRACIN TOP OINT 15 GM TUBE TOP SCH ×2 (09:10→21:00)
[2016-10-31] MEDS: PETROLATUM 49%/ZINC OXIDE 15% 4 OUNCE TUBE TOPICAL SCH (09:11)
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
[2016-10-31] MEDS: ACETAMINOPHEN/HYDROcodone 325 MG/10 MG TAB PO PRN (23:26)
[2016-11-01] VITALS (7 sets, daily range): BP systolic 87–123; BP diastolic 53–82; PULSE 68–88; RESP 16–20; TEMP 97.3–98.5; O2SAT 97–100
[2016-11-01] MEDS: ACETAMINOPHEN/HYDROcodone 325 MG/10 MG TAB PO PRN (05:54)
[2016-11-01] MEDS: METOPROLOL TARTRATE 50 MG TAB GT SCH ×2 (05:54→14:44)
[2016-11-01] MEDS: hydrALAZINE HCL 50 MG TAB PO SCH ×3 (05:54→21:22)
[2016-11-01] MEDS: FREE WATER G-TUBE SCH ×3 (05:54→17:12)
[2016-11-01] MEDS: PHENYTOIN SODIUM 100 MG CAP GT SCH ×3 (05:54→21:22)
[2016-11-01] MEDS: APIXABAN 5 MG TABLET PO SCH ×2 (08:32→21:22)
[2016-11-01] MEDS: LANSOPRAZOLE SOLUTAB 15 MG TAB NG SCH (08:32)
[2016-11-01] MEDS: SODIUM BICARBONATE 650 MG TAB PO SCH ×2 (08:32→21:22)
[2016-11-01] MEDS: MULTIVITAMIN TAB PO SCH (08:32)
[2016-11-01] MEDS: FERROUS SULFATE 300 MG /5ML UDC PO SCH (08:33)
[2016-11-01] MEDS: LACTOBACILLUS ACIDOPHILUS TAB PO SCH ×3 (08:33→17:12)
[2016-11-01] MEDS: BACITRACIN TOP OINT 15 GM TUBE TOP SCH ×2 (08:33→21:00)
[2016-11-01] MEDS: SODIUM CHLORIDE 0.9% FLUSH 5 ML FLUSH IV FLUSH SCH ×2 (08:33→21:25)
[2016-11-01] MEDS: LACTIC ACID (AMMONIUM LACTATE) 12% LOTION 225 GM BTL TOPICAL SCH ×2 (08:34→21:23)
[2016-11-01] MEDS: CALAMINE/PRAMOXINE LOTION 180 ML BTL TOPICAL SCH ×2 (08:34→21:24)
[2016-11-01] MEDS: PETROLATUM 49%/ZINC OXIDE 15% 4 OUNCE TUBE TOPICAL SCH (08:34)
[2016-11-01] MEDS: AMOXICILLIN/CLAVULANATE K 875 MG TAB TUBE SCH (08:34)
[2016-11-01] MEDS: BETAMETHASONE DIPROPIONATE 0.05% CREAM 15 GM TOPICAL SCH ×2 (08:34→21:24)
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
[2016-11-01] MEDS: SKIN PROTECTANT PASTE 57 GM TUBE TOPICAL PRN (21:24)
[2016-11-02] VITALS (8 sets, daily range): BP systolic 101–134; BP diastolic 61–69; PULSE 74–99; RESP 18–20; TEMP 97–97.6; O2SAT 96–98
[2016-11-02] MEDS: METOPROLOL TARTRATE 50 MG TAB GT SCH ×4 (03:24→22:23)
[2016-11-02] MEDS: hydrALAZINE HCL 50 MG TAB PO SCH ×3 (05:49→22:00)
[2016-11-02] MEDS: PHENYTOIN SODIUM 100 MG CAP GT SCH ×3 (05:51→22:21)
[2016-11-02] MEDS: FREE WATER G-TUBE SCH ×5 (05:54→23:47)
[2016-11-02] MEDS: LANSOPRAZOLE SOLUTAB 15 MG TAB NG SCH (08:33)
[2016-11-02] MEDS: MULTIVITAMIN TAB PO SCH (08:33)
[2016-11-02] MEDS: APIXABAN 5 MG TABLET PO SCH ×2 (08:33→20:00)
[2016-11-02] MEDS: FERROUS SULFATE 300 MG /5ML UDC PO SCH (08:33)
[2016-11-02] MEDS: LACTOBACILLUS ACIDOPHILUS TAB PO SCH ×3 (08:33→16:04)
[2016-11-02] MEDS: SODIUM BICARBONATE 650 MG TAB PO SCH ×2 (08:33→20:00)
[2016-11-02] MEDS: SODIUM CHLORIDE 0.9% FLUSH 5 ML FLUSH IV FLUSH SCH ×2 (08:33→20:00)
[2016-11-02] MEDS: BACITRACIN TOP OINT 15 GM TUBE TOP SCH ×2 (08:33→20:04)
[2016-11-02] MEDS: BETAMETHASONE DIPROPIONATE 0.05% CREAM 15 GM TOPICAL SCH ×2 (08:34→20:02)
[2016-11-02] MEDS: LACTIC ACID (AMMONIUM LACTATE) 12% LOTION 225 GM BTL TOPICAL SCH ×2 (08:34→20:01)
[2016-11-02] MEDS: CALAMINE/PRAMOXINE LOTION 180 ML BTL TOPICAL SCH ×2 (08:34→20:03)
[2016-11-02] MEDS: PETROLATUM 49%/ZINC OXIDE 15% 4 OUNCE TUBE TOPICAL SCH (08:34)
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
[2016-11-02 14:24] LABS: AUTOMATED NEUTROPHIL # 6.1 TH/MM3 (1.8-7.7); BASOPHIL % 0.4 % (0.0-2.0); EOSINOPHIL # 2.5 TH/MM3 (0-0.4); HEMATOCRIT 22.7 % (35.0-46.0); LYMPH % 14.9 % (9.0-44.0); LYMPHOCYTE # 1.6 TH/MM3 (1.0-4.8); MEAN CELL VOLUME 87.1 FL (80.0-100.0); MEAN CORPUSCULAR HEMOGLOBIN 30.3 PG (27.0-34.0); MEAN CORPUSCULAR HGB CONC 34.8 % (32.0-36.0); MONO % 6.2 % (0.0-8.0); NEUT % 55.5 % (16.0-70.0); PLATELET COUNT 302 TH/MM3 (150-450); RED BLOOD COUNT 2.61 MIL/MM3 (4.00-5.30); RED CELL DISTRIBUTION WIDTH 19.6 % (11.6-17.2)
[2016-11-02 14:25] LABS: HEMO FLAGS AUTO DIFF
[2016-11-02 14:43] LABS: BICARBONATE 23.8 MEQ/L (21.0-32.0)
--- NOTE | 2016-11-02 14:57 | RADRPT ---
EXAM DATE/TIME: 11/02/2016 14:33 [facility] COMPARISON: CHEST SINGLE AP, October 18, 2016, 12:00. INDICATIONS : Short of breath. MEDICAL HISTORY : Congestive heart failure. Emphysema. Hypertension. SURGICAL HISTORY : None. ENCOUNTER: Initial ACUITY: 4 - 6 days PAIN SCORE: 0/10 LOCATION: Bilateral chest FINDINGS: A single view of the chest demonstrates the lungs to be symmetrically aerated without evidence of mas s, infiltrate or effusion. The cardiomediastinal contours are unremarkable. Osseous structures are intact. Left subclavian central venous catheter present with the tip in the superior vena cava. CONCLUSION: No evidence of acute cardiopulmonary disease. Aidan Felipe MD on November 02, 2016 at 14:55 Board Certified Radiologist. This report was verified electronically.
[2016-11-02 15:07] LABS: BANDS 3 % (0-6); BASOPHILS 1 % (0-2); EOSINOPHILS 26 % (0-4); METAMYELOCYTES 2 % (0-1); MYELOCYTES 3 % (0-0); NEUTROPHIL # MANUAL DIFF 6.2 TH/MM3 (1.8-7.7); POLYS (SEG NEUTROPHILS) 48 % (16-70); WBC DIFF SAMPLE 100
[2016-11-02 15:08] LABS: PLATELET ESTIMATE SMEAR NORMAL (NORMAL); PLATELET MORPHOLOGY NORMAL (NORMAL); SCAN/DIFF FINAL DIFF MANUAL
[2016-11-02] MEDS: RESP: ALBUTEROL 2.5 MG/IPRATROPIUM 0.5 MG NEB (SCH) NEB ×2 (16:00→20:21)
[2016-11-03] VITALS (8 sets, daily range): BP systolic 97–128; BP diastolic 53–63; PULSE 80–133; RESP 20–32; TEMP 97.5–98.6; O2SAT 98–100
[2016-11-03] MEDS: hydrALAZINE HCL 50 MG TAB PO SCH ×3 (06:00→22:41)
[2016-11-03] MEDS: FREE WATER G-TUBE SCH ×3 (06:00→16:09)
[2016-11-03] MEDS: PHENYTOIN SODIUM 100 MG CAP GT SCH ×3 (06:01→22:43)
[2016-11-03] MEDS: METOPROLOL TARTRATE 50 MG TAB GT SCH ×3 (06:01→22:41)
[2016-11-03] MEDS: RESP: ALBUTEROL 2.5 MG/IPRATROPIUM 0.5 MG NEB (SCH) NEB ×4 (08:49→19:21)
[2016-11-03] MEDS: LANSOPRAZOLE SOLUTAB 15 MG TAB NG SCH (09:05)
[2016-11-03] MEDS: SODIUM CHLORIDE 0.9% FLUSH 5 ML FLUSH IV FLUSH SCH ×2 (09:05→20:18)
[2016-11-03] MEDS: APIXABAN 5 MG TABLET PO SCH ×2 (09:05→20:17)
[2016-11-03] MEDS: BETAMETHASONE DIPROPIONATE 0.05% CREAM 15 GM TOPICAL SCH ×2 (09:06→20:18)
[2016-11-03] MEDS: MULTIVITAMIN TAB PO SCH (09:06)
[2016-11-03] MEDS: CALAMINE/PRAMOXINE LOTION 180 ML BTL TOPICAL SCH ×2 (09:06→20:14)
[2016-11-03] MEDS: FERROUS SULFATE 300 MG /5ML UDC PO SCH (09:06)
[2016-11-03] MEDS: BACITRACIN TOP OINT 15 GM TUBE TOP SCH ×2 (09:06→20:16)
[2016-11-03] MEDS: LACTOBACILLUS ACIDOPHILUS TAB PO SCH ×3 (09:06→16:09)
[2016-11-03] MEDS: SODIUM BICARBONATE 650 MG TAB PO SCH ×2 (09:06→20:17)
[2016-11-03] MEDS: LACTIC ACID (AMMONIUM LACTATE) 12% LOTION 225 GM BTL TOPICAL SCH ×2 (09:07→20:18)
[2016-11-03] MEDS: PETROLATUM 49%/ZINC OXIDE 15% 4 OUNCE TUBE TOPICAL SCH (09:07)
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
[2016-11-03] MEDS ORDERED: HYDR50TA15 PO (15:56)
[2016-11-03] MEDS ORDERED: BETA0.052 TOPICAL (15:56)
[2016-11-03] MEDS ORDERED: LACT PO (15:56)
[2016-11-03] MEDS ORDERED: WATE10P G-TUBE (15:56)
[2016-11-03] MEDS ORDERED: FERR300S PO (15:56)
[2016-11-03] MEDS ORDERED: HYDR-3583 PO (15:56)
[2016-11-03] MEDS ORDERED: LANSO15 NG (15:56)
[2016-11-03] MEDS ORDERED: METO-309 GT (15:56)
[2016-11-03] MEDS ORDERED: APIX5TAB PO (15:56)
[2016-11-03] MEDS ORDERED: IPRASOL NEB (15:56)
[2016-11-03] MEDS ORDERED: IPRASOL INH (15:56)
--- NOTE | 2016-11-03 15:57 | HHI.DCPOC ---
Discharge Care Plan Diagnosis: (1) Encephalopathy acute (2) Pulmonary embolism Your Health Problems Are: Difficulty with ADL Exercise Tolerance Goals to Promote Your Health * To prevent worsening of your condition and complications * To maintain your health at the optimal level Directions to Meet Your Goals Take your medications as prescribed Follow your dietary instruction Follow activity as directed Keep your appointments as scheduled Take your immunizations and boosters as scheduled If your symptoms worsen call your PCP, if no PCP go to Urgent Care Center or Emergency Room Smoking is Dangerous to Your Health. Avoid second hand smoke Call the 24-hour hour crisis hotline for domestic abuse at Jose Bonilla MD Nov 03, 2016 15:57
[2016-11-03] MEDS: ACETAMINOPHEN/HYDROcodone 325 MG/10 MG TAB PO PRN (20:17)
[2016-11-04 00:11] VITALS: BP 96/57; PULSE 98; RESP 32; TEMP 99; O2SAT 98
[2016-11-04 04:00] VITALS: BP 105/61; PULSE 104; RESP 36; TEMP 98.5; O2SAT 97
[2016-11-04] MEDS: hydrALAZINE HCL 50 MG TAB PO SCH (05:41)
[2016-11-04] MEDS: METOPROLOL TARTRATE 50 MG TAB GT SCH (05:42)
[2016-11-04] MEDS: PHENYTOIN SODIUM 100 MG CAP GT SCH (05:42)
[2016-11-04] MEDS: FREE WATER G-TUBE SCH ×3 (05:42→12:17)
[2016-11-04] MEDS: RESP: ALBUTEROL 2.5 MG/IPRATROPIUM 0.5 MG NEB (SCH) NEB ×2 (07:30→11:52)
[2016-11-04 07:32] VITALS: O2SAT 97
[2016-11-04 08:00] VITALS: BP 103/61; PULSE 63; RESP 18; TEMP 97.9; O2SAT 94
[2016-11-04 08:27] LABS: BICARBONATE 25.9 MEQ/L (21.0-32.0); POTASSIUM 4.3 MEQ/L (3.5-5.1)
[2016-11-04] MEDS: LACTOBACILLUS ACIDOPHILUS TAB PO SCH ×2 (09:33→12:17)
[2016-11-04] MEDS: APIXABAN 5 MG TABLET PO SCH (09:33)
[2016-11-04] MEDS: SODIUM CHLORIDE 0.9% FLUSH 5 ML FLUSH IV FLUSH SCH (09:33)
[2016-11-04] MEDS: LANSOPRAZOLE SOLUTAB 15 MG TAB NG SCH (09:33)
[2016-11-04] MEDS: SODIUM BICARBONATE 650 MG TAB PO SCH (09:33)
[2016-11-04] MEDS: FERROUS SULFATE 300 MG /5ML UDC PO SCH (09:33)
[2016-11-04] MEDS: MULTIVITAMIN TAB PO SCH (09:33)
[2016-11-04] MEDS: BETAMETHASONE DIPROPIONATE 0.05% CREAM 15 GM TOPICAL SCH (09:41)
[2016-11-04] MEDS: CALAMINE/PRAMOXINE LOTION 180 ML BTL TOPICAL SCH (09:41)
[2016-11-04] MEDS: BACITRACIN TOP OINT 15 GM TUBE TOP SCH (09:41)
[2016-11-04] MEDS: LACTIC ACID (AMMONIUM LACTATE) 12% LOTION 225 GM BTL TOPICAL SCH (09:41)
[2016-11-04] MEDS: PETROLATUM 49%/ZINC OXIDE 15% 4 OUNCE TUBE TOPICAL SCH (09:42)
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
[2016-11-04] MEDS ORDERED: DILA100C GT ×2 (10:59)
[2016-11-04] MEDS ORDERED: PHENYTOIN SUSP 100 MG/4 ML CUP G-TUBE ONE (11:00)
[2016-11-04] MEDS: ACETAMINOPHEN/HYDROcodone 325 MG/10 MG TAB PO PRN (12:17)
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
[2016-11-04] MEDS ORDERED: PHENYTOIN SODIUM 100 MG CAP GT SCH ×2 (15:00→21:00)
== END 2016-11-04 15:14 | DRG 853 ==
LOC: NEPC 09:53 → NEDA 15:10 → HIME 17:30 → N04B 06-05 21:25 → N03B 08-14 03:50 → N05A 08-21 19:12 → N03A 09-22 20:24 → N04B 09-23 19:05 → N03A 09-26 08:55 → N04B 10-05 00:46
PROVIDERS: ADMIT Internal Medicine; ATTEND Internal Medicine
PROC: 5A09357 Assistance with Respiratory Ventilation, Less than 24 Consecutive Hours, Continuous Positive Airway Pressure (ICD-10-PCS; 2016-05-31)
PROC: 30233N1 Transfusion of Nonautologous Red Blood Cells into Peripheral Vein, Percutaneous Approach (ICD-10-PCS; 2016-06-01)
PROC: 0DH63UZ Insertion of Feeding Device into Stomach, Percutaneous Approach (ICD-10-PCS; 2016-07-07)
PROC: 0DJ08ZZ Inspection of Upper Intestinal Tract, Via Natural or Artificial Opening Endoscopic (ICD-10-PCS; 2016-07-07)
PROC: 0D1K0Z4 Bypass Ascending Colon to Cutaneous, Open Approach (ICD-10-PCS; principal; 2016-07-15 08:53)
PROC: 0WQF0ZZ Repair Abdominal Wall, Open Approach (ICD-10-PCS; 2016-08-13)
PROC: 02H633Z Insertion of Infusion Device into Right Atrium, Percutaneous Approach (ICD-10-PCS; 2016-08-14)
PROC: 5A1945Z Respiratory Ventilation, 24-96 Consecutive Hours (ICD-10-PCS; 2016-08-14)
PROC: 0B958ZX Drainage of Right Middle Lobe Bronchus, Via Natural or Artificial Opening Endoscopic, Diagnostic (ICD-10-PCS; 2016-08-14)
PROC: 0BH17EZ Insertion of Endotracheal Airway into Trachea, Via Natural or Artificial Opening (ICD-10-PCS; 2016-08-14)
PROC: 0WUF0JZ Supplement Abdominal Wall with Synthetic Substitute, Open Approach (ICD-10-PCS; 2016-08-28)
PROC: 0DQK0ZZ Repair Ascending Colon, Open Approach (ICD-10-PCS; 2016-08-28)
PROC: 0JPT3XZ Removal of Tunneled Vascular Access Device from Trunk Subcutaneous Tissue and Fascia, Percutaneous Approach (ICD-10-PCS; 2016-09-20)
PROC: B5191ZZ Fluoroscopy of Inferior Vena Cava using Low Osmolar Contrast (ICD-10-PCS; 2016-09-22)
PROC: 5A1955Z Respiratory Ventilation, Greater than 96 Consecutive Hours (ICD-10-PCS; 2016-09-26)
PROC: 05H533Z Insertion of Infusion Device into Right Subclavian Vein, Percutaneous Approach (ICD-10-PCS; 2016-09-26)
PROC: 0BH17EZ Insertion of Endotracheal Airway into Trachea, Via Natural or Artificial Opening (ICD-10-PCS; 2016-09-26)
PROC: 05HM33Z Insertion of Infusion Device into Right Internal Jugular Vein, Percutaneous Approach (ICD-10-PCS; 2016-09-29)
PROC: 5A1D60Z (ICD-10-PCS; 2016-09-30)
PROC: 0DHA3UZ Insertion of Feeding Device into Jejunum, Percutaneous Approach (ICD-10-PCS; 2016-10-01)
PROC: 30233K1 Transfusion of Nonautologous Frozen Plasma into Peripheral Vein, Percutaneous Approach (ICD-10-PCS; 2016-10-02)
PROC: 0D2DXUZ Change Feeding Device in Lower Intestinal Tract, External Approach (ICD-10-PCS; 2016-10-17)
DX: A41.9 Sepsis, unspecified organism (principal); I26.99 Other pulmonary embolism without acute cor pulmonale; R65.21 Severe sepsis with septic shock; J69.0 Pneumonitis due to inhalation of food and vomit; G93.41 Metabolic encephalopathy; K85.90 Acute pancreatitis without necrosis or infection, unspecified; J96.00 Acute respiratory failure, unspecified whether with hypoxia or hypercapnia; J96.01 Acute respiratory failure with hypoxia; E87.2 Acidosis; J15.6 Pneumonia due to other Gram-negative bacteria; J15.0 Pneumonia due to Klebsiella pneumoniae; J15.211 Pneumonia due to Methicillin susceptible Staphylococcus aureus; N17.9 Acute kidney failure, unspecified; E87.3 Alkalosis; T17.890A Other foreign object in other parts of respiratory tract causing asphyxiation, initial encounter; A04.7 Enterocolitis due to Clostridium difficile; E44.0 Moderate protein-calorie malnutrition; E87.4 Mixed disorder of acid-base balance; E87.1 Hypo-osmolality and hyponatremia; L03.116 Cellulitis of left lower limb; I47.1 Supraventricular tachycardia; R47.01 Aphasia; L97.829 Non-pressure chronic ulcer of other part of left lower leg with unspecified severity; K52.1 Toxic gastroenteritis and colitis; E87.0 Hyperosmolality and hypernatremia; B37.0 Candidal stomatitis; G81.94 Hemiplegia, unspecified affecting left nondominant side; K86.3 Pseudocyst of pancreas; T81.30XA Disruption of wound, unspecified, initial encounter; K94.23 Gastrostomy malfunction; N39.0 Urinary tract infection, site not specified; T80.218A Other infection due to central venous catheter, initial encounter; T83.518A Infection and inflammatory reaction due to other urinary catheter, initial encounter; L89.159 Pressure ulcer of sacral region, unspecified stage; L89.320 Pressure ulcer of left buttock, unstageable; R13.10 Dysphagia, unspecified; B37.2 Candidiasis of skin and nail; I10 Essential (primary) hypertension; R65.20 Severe sepsis without septic shock; L89.619 Pressure ulcer of right heel, unspecified stage; L89.629 Pressure ulcer of left heel, unspecified stage; B18.2 Chronic viral hepatitis C; F17.210 Nicotine dependence, cigarettes, uncomplicated; R62.7 Adult failure to thrive; R15.9 Full incontinence of feces; J44.9 Chronic obstructive pulmonary disease, unspecified; E78.5 Hyperlipidemia, unspecified; R47.02 Dysphasia; G40.909 Epilepsy, unspecified, not intractable, without status epilepticus; M19.90 Unspecified osteoarthritis, unspecified site; K21.9 Gastro-esophageal reflux disease without esophagitis; E66.9 Obesity, unspecified; E87.6 Hypokalemia; L30.9 Dermatitis, unspecified; I25.10 Atherosclerotic heart disease of native coronary artery without angina pectoris; B86 Scabies; D63.8 Anemia in other chronic diseases classified elsewhere; R00.1 Bradycardia, unspecified; K43.5 Parastomal hernia without obstruction or gangrene; E86.1 Hypovolemia; B96.4 Proteus (mirabilis) (morganii) as the cause of diseases classified elsewhere; B96.1 Klebsiella pneumoniae [K. pneumoniae] as the cause of diseases classified elsewhere; B95.61 Methicillin susceptible Staphylococcus aureus infection as the cause of diseases classified elsewhere; Y84.6 Urinary catheterization as the cause of abnormal reaction of the patient, or of later complication, without mention of misadventure at the time of the procedure; R21 Rash and other nonspecific skin eruption; E87.5 Hyperkalemia; Z51.5 Encounter for palliative care; Y95 Nosocomial condition; I48.91 Unspecified atrial fibrillation; K29.70 Gastritis, unspecified, without bleeding; A41.59 Other Gram-negative sepsis; E74.39 Other disorders of intestinal carbohydrate absorption; F03.90 Unspecified dementia, unspecified severity, without behavioral disturbance, psychotic disturbance, mood disturbance, and anxiety; E86.0 Dehydration; E87.8 Other disorders of electrolyte and fluid balance, not elsewhere classified; E83.42 Hypomagnesemia; Z74.01 Bed confinement status; Z78.1 Physical restraint status; Z86.73 Personal history of transient ischemic attack (TIA), and cerebral infarction without residual deficits; Z86.14 Personal history of Methicillin resistant Staphylococcus aureus infection; Z23 Encounter for immunization; Z53.31 Laparoscopic surgical procedure converted to open procedure; T36.95XA Adverse effect of unspecified systemic antibiotic, initial encounter; T38.0X5A Adverse effect of glucocorticoids and synthetic analogues, initial encounter
CPT/HCPCS: 31500; 31624; 36005; 36010; 36430; 36556; 36600; 37197; 49446; 49452; 70450; 71010; 71275; 74000; 74176; 74177; 75825; 76937; 78582; 80048; 80053; 80069; 80074; 80185; 80186; 80202; 80329; 81001; 82140; 82272; 82550; 82552; 82565; 82728; 82805; 82948; 83540; 83550; 83605; 83690; 83735; 83880; 84100; 84132; 84134; 84155; 84443; 84484; 85007; 85014; 85018; 85025; 85027; 85379; 85384; 85610; 85730; 86140; 86355; 86357; 86359; 86360; 86403; 86703; 86850; 86900; 86901; 86920; 86927; 87040; 87070; 87077; 87086; 87147; 87186; 87205; 87493; 87641; 90471; 90472; 90686; 90714; 90732; 90935; 93005; 93306; 93970; 93971; 94002; 94003; 94150; 94640; 94664; 94667; 94668; 95819; 96366; 96374; 96375; 99152; 99153; A9540; A9567; C1751; C1769; C1773; C1781; C1874; C1887; C1894; C9113; G0008; G0009; G0479; J0153; J0171; J0295; J0330; J0461; J0690; J0692; J1165; J1170; J1200; J1450; J1580; J1642; J1644; J1650; J1720; J1815; J1885; J1940; J2060; J2150; J2185; J2248; J2250; J2370; J2405; J2543; J2710; J2765; J2920; J2930; J3010; J3370; J3475; J3480; J7030; J7040; J7050; J7070; J7120; J7512; J7613; P9016; P9017; P9047; Q0177; Q2009; Q2038; Q9963; Q9967